=== PATIENT | male | born 1990 | race African-American/Black ===

== ENCOUNTER 2017-07-08 12:59 | Observation (INO) | payer OTHER ==
[2017-07-08 13:09] VITALS: BP 108/64; PULSE 72; RESP 16; TEMP 98.2
[2017-07-08] MEDS ORDERED: RX INFO: IV CONTRAST WAS GIVEN 1 EACH MISC MISCELLANE PRN (13:55)
--- NOTE | 2017-07-08 14:13 | ED ---
General Adult HPI - General Chief complaint: Recheck/Abnormal Lab/Rx Stated complaint: Leg Pain Time Seen by Provider: 07/08/17 13:23 Source: patient Mode of arrival: wheelchair Limitations: no limitations - History of Present Illness Initial comments: 27 yo male with pmh of uncontrolled and unmonitored HIV since 2008 presenting for evaluation of headaches and bilateral LE weakness. States symptoms started about 2 months ago but is uncertain. States onset was gradual but progressively worsening. Symptoms are most notable when trying to stand up from a seated position or when trying to go up stairs. He states that he has to grab onto his pants in order to lift up the extremities. He further states that he intermittently would try to stand up and has near syncopal moments with multiple episodes of syncope and blacking out. Headache is generalized and there are no exacerbating or alleviating factors. He denies any rashes or lesions to his body however there are white spots in his mouth and is looking to follow-up with a dentist for further evaluation. Denies change in vision or ataxia. Intermittent fevers and chills however none currently. Given the recent symptoms he did follow-up with the [facility] to have a CD4 count measured within the last 2 weeks however he has not received his results. Prior to that his most recent follow-up was in 2008. He further states that he hasn't been on antiretroviral therapy since 2008 and at that point had only been on it for a month. He discontinued its use because he was required to go to [place] for monitoring and prescriptions and stated that this was not logistically feasible. - Related Data Home Medications Medication Instructions Recorded Confirmed No Known Home Medications [No 07/08/17 07/08/17 Known Home Medications] Allergies Allergy/AdvReac Type Severity Reaction Status Date / Time No Known Allergies Allergy Verified 07/08/17 15:31 Review of Systems ROS Statement: Those systems with pertinent positive or pertinent negative responses have been documented in the HPI. ROS Other: All systems not noted in ROS Statement are negative. Constitutional: Reports: fever, chills, weakness (lower extremity), night sweats ENT: Reports: other (white oral lesions). Denies: ear pain, throat pain Respiratory: Denies: cough, dyspnea, wheezes Cardiovascular: Denies: chest pain, palpitations, dyspnea on exertion, syncope ( near syncopal episodes when rising) Endocrine: Reports: fatigue. Denies: polydipsia, polyuria Gastrointestinal: Denies: abdominal pain, nausea, vomiting, diarrhea, constipation Genitourinary: Denies: urgency, dysuria, frequency Musculoskeletal: Denies: back pain Skin: Denies: rash, lesions, change in color, change in hair/nails Neurological: Reports: headache, weakness (bilateral lower extremities), abnormal gait (limited due to weakness). Denies: numbness, paresthesias, confusion Psychiatric: Denies: anxiety, depression Hematological/Lymphatic: Denies: easy bleeding, easy bruising Past Medical History Past Medical History: No Reported History Additional Past Medical History / Comment(s): hiv + History of Any Multi-Drug Resistant Organisms: None Reported Past Surgical History: No Surgical Hx Reported Past Psychological History: No Psychological Hx Reported Smoking Status: Never smoker Past Alcohol Use History: Occasional Past Drug Use History: Marijuana General Exam Limitations: no limitations General appearance: alert, in no apparent distress Head exam: Present: atraumatic, normocephalic, normal inspection Eye exam: Present: normal appearance, PERRL, EOMI. Absent: scleral icterus, conjunctival injection, periorbital swelling, periorbital tenderness ENT exam: Present: mucous membranes dry, normal external ear exam, other (white lesions to mucous membranes) Neck exam: Present: normal inspection, full ROM. Absent: tenderness Respiratory exam: Present: normal lung sounds bilaterally. Absent: respiratory distress, wheezes, rales, rhonchi Cardiovascular Exam: Present: regular rate, normal rhythm. Absent: bradycardia , tachycardia, irregular rhythm GI/Abdominal exam: Present: soft. Absent: distended, tenderness, guarding, rebound, rigid Rectal exam: Present: deferred Extremities exam: Present: normal inspection, normal capillary refill. Absent: full ROM, tenderness, pedal edema, joint swelling, calf tenderness Back exam: Present: normal inspection, full ROM Neurological exam: Present: alert, oriented X3, CN II-XII intact, abnormal gait , motor sensory deficit (weakness to bilateral lower extremity flexion/ extionsion of knees and hips), reflexes normal. Absent: normal gait Psychiatric exam: Present: normal affect, normal mood Skin exam: Present: warm, dry Course Vital Signs 07/08/17 13:06 Temperature 98.2 F Pulse Rate 72 Respiratory 16 Rate Blood Pressure 108/64 O2 Sat by Pulse 99 Oximetry Medical Decision Making - Medical Decision Making 27-year-old male with past medical history of uncontrolled an unmonitored HIV since 2008 presenting for evaluation of headache for the last couple months, lower extremity weakness during this time as well, and multiple near syncopal moments. On physical examination cranial nerves II through XII are intact however there are focal neural deficits and lower extremity's with weakness of the hips knees and ankles in both flexion and extension. ENT exam reveals thrush to the posterior oropharynx as well as the buccal mucosa. Remainder of exam is benign. Given his lack of follow-up as an outpatient with his HIV and lack of treatment he has a high risk of opportunistic infections. We'll obtain CT head with and without contrast, labs, and plan for admission. CT head with and without contrast showed no acute intracranial process or abnormal endocrine no enhancement however there was cerebral atrophy that is advanced for the patient's age. Labs revealed no significant abnormality. Patient was reevaluated and had no change in his physical exam. Discussed the patient with Dr. River who accepted the admission without further request. Admission order placed and bed request submitted. - Lab Data Result diagrams: 07/08/17 14:00 07/08/17 14:00 Lab Results 07/08/17 07/08/17 07/08/17 Range/Units 14:00 14:00 15:00 WBC 4.5 (3.8-10.6) k/uL RBC 4.33 (4.30-5.90) m/uL Hgb 13.1 (13.0-17.5) gm/dL Hct 39.4 (39.0-53.0) % MCV 91.0 (80.0-100.0) fL MCH 30.3 (25.0-35.0) pg MCHC 33.3 (31.0-37.0) g/dL RDW 12.7 (11.5-15.5) % Plt Count 139 L (150-450) k/uL Neutrophils % 66 % Lymphocytes % 24 % Monocytes % 6 % Eosinophils % 3 % Basophils % 1 % Neutrophils # 3.0 (1.3-7.7) k/uL Lymphocytes # 1.1 (1.0-4.8) k/uL Monocytes # 0.3 (0-1.0) k/uL Eosinophils # 0.1 (0-0.7) k/uL Basophils # 0.0 (0-0.2) k/uL Sodium 146 H (137-145) mmol/L Potassium 4.3 (3.5-5.1) mmol/L Chloride 104 (98-107) mmol/L Carbon Dioxide 30 (22-30) mmol/L Anion Gap 12 mmol/L BUN 15 (9-20) mg/dL Creatinine 0.72 (0.66-1.25) mg/dL Est GFR (CKD-EPI)AfAm >90 (>60 ml/min/1.73 sqM) Est GFR (CKD-EPI)NonAf >90 (>60 ml/min/1.73 sqM) Glucose 92 (74-99) mg/dL Calcium 9.4 (8.4-10.2) mg/dL Total Bilirubin 0.6 (0.2-1.3) mg/dL AST 51 (17-59) U/L ALT 41 (21-72) U/L Alkaline Phosphatase 110 (38-126) U/L Total Protein 8.0 (6.3-8.2) g/dL Albumin 3.8 (3.5-5.0) g/dL Urine Color Yellow Urine Appearance Clear (Clear) Urine pH 7.5 (5.0-8.0) Urine Protein Trace H (Negative) Urine Glucose (UA) Negative (Negative) Urine Ketones Negative (Negative) Urine Blood Negative (Negative) Urine Nitrite Negative (Negative) Urine Bilirubin Negative (Negative) Urine Urobilinogen <2.0 (<2.0) mg/dL Ur Leukocyte Esterase Negative (Negative) Disposition Clinical Impression: Lower extremity weakness, Thrush Disposition: ADMITTED IP TO THIS HOSP Referrals: None,Stated [Primary Care Provider] - 1-2 days Decision to Admit Reason: Admit from EC Decision Date: 07/08/17 Decision Time: 15:59
[2017-07-08 14:31] LABS: Basophils % (A) 1 %; Eosinophils # (A) 0.1 k/uL (0-0.7); Eosinophils % (A) 3 %; HCT 39.4 % (39.0-53.0); HGB 13.1 gm/dL (13.0-17.5); Lymphocytes # (A) 1.1 k/uL (1.0-4.8); Lymphocytes % (A) 24 %; MCH 30.3 pg (25.0-35.0); MCHC 33.3 g/dL (31.0-37.0); Monocytes # (A) 0.3 k/uL (0-1.0); Monocytes % (A) 6 %; Neutrophils % (A) 66 %; Platelet Count 139 k/uL (150-450); RBC 4.33 m/uL (4.30-5.90); RDW 12.7 % (11.5-15.5); WBC 4.5 k/uL (3.8-10.6)
[2017-07-08 14:40] LABS: ALT 41 U/L (21-72); AST 51 U/L (17-59); Albumin 3.8 g/dL (3.5-5.0); Alkaline Phosphatase 110 U/L (38-126); Anion Gap 12 mmol/L; Blood Urea Nitrogen 15 mg/dL (9-20); Calcium 9.4 mg/dL (8.4-10.2); Carbon Dioxide 30 mmol/L (22-30); Chloride 104 mmol/L (98-107); Glucose 92 mg/dL (74-99); Potassium 4.3 mmol/L (3.5-5.1); Sodium 146 mmol/L (137-145); Total Bilirubin 0.6 mg/dL (0.2-1.3)
--- NOTE | 2017-07-08 15:29 | CT ---
EXAMINATION TYPE: CT brain wo/w con DATE OF EXAM: 07/08/2017 COMPARISON: NONE HISTORY: Lower extremity weakness CT DLP: 2152 mGycm Automated Exposure Control for Dose Reduction was Utilized. TECHNIQUE: CT scan of the head is performed with IV contrast.,CT scan of the head is performed withou t and with without and with IV Contrast, patient injected with 100 ml mL of Isovue 300. FINDINGS: There is symmetric enlargement of the ventricular system and peripheral sulci compatible wi th cerebral atrophy, advanced for the patient's age. Noncontrast images show no acute intracranial he morrhage or midline shift. No suspicious extra axial fluid collection is seen. Godoy-white matter inte rface is preserved. Postcontrast images show no suspicious enhancing intraparenchymal mass. The globe s are intact. Mild mucosal thickening is seen within the ethmoid, maxillary, and sphenoid sinuses. Fr ontal sinuses and mastoid air cells are well aerated. Calvarium is intact. IMPRESSION: No acute intracranial process or abnormal intracranial enhancement. Cerebral atrophy is a dvanced for the patient's age. MRI could be considered if there is further clinical concern.
[2017-07-08] MEDS ORDERED: SODIUM CHLORIDE 0.9% 1,000 ML IV ONE (15:30)
[2017-07-08 15:52] LABS: Appearance,Urine Clear (Clear); Bilirubin,Urine Negative (Negative); Blood,Urine Negative (Negative); Color,Urine Yellow; Glucose,Urine (UA) Negative (Negative); Ketones,Urine Negative (Negative); Leukocyte Esterase,Urine Negative (Negative); Nitrite,Urine Negative (Negative); PH, Urine 7.5 (5.0-8.0); Protein,Urine Trace (Negative); Urobilinogen,Urine <2.0 mg/dL (<2.0)
[2017-07-08] MEDS ORDERED: NALOXONE 0.4 MG/ML 1 ML VIAL IV PRN (15:55)
[2017-07-08] MEDS ORDERED: IBUPROFEN 400 MG TAB PO PRN (15:55)
[2017-07-08] MEDS ORDERED: ONDANSETRON 4 MG/2 ML VIAL IVP PRN (15:55)
[2017-07-08] MEDS ORDERED: ACETAMINOPHEN TAB 325 MG TAB PO PRN (15:55)
[2017-07-08 15:59] LABS: Specific Gravity,Urine >1.050 (1.001-1.035)
[2017-07-08] MEDS ORDERED: NYSTATIN 100,000 UNIT/ML SUSP 500,000 UNIT/5 ML CUP PO SCH (18:00)
--- NOTE | 2017-07-08 18:18 | P.HPIM ---
History of Present Illness 27-year-old male with previous history of HIV which was diagnosed in 2008 was briefly started on anti-retroviral therapy after which he starts he came in with complaints of bilateral lower limb weakness patient has a broad-based gait upon exam and which has been progressively getting worse for 2 months. Patient denied any other focal weakness. Patient was comparing of on and have headache denied any visual problems there is some oral thrush and exam.. Patient was seen in an outpatient clinic where this CD4 count was done is not aware of the CD4 count results. We are trying to obtain medical records from clinic for CD4 count. Patient is supposed to follow-up with pending sale to [facility]. I was asked to admit the patient for possible LP and an MRI and monitoring overnight and possible infectious disease consultation. Patient denied any cough runny nose dysuria. No fever no leukocytosis CD4 count was ordered I admitted the patient for above-mentioned testing looking for toxoplasmosis and other HIV related PRICE CHECKER manifestations. Shortly after coming to the floor patient wanted to leave doesn't want to stay in the hospital for any further evaluation. I recommended to him to follow up closely with the his physicians. we're trying to get him appointments with PCP , infectious disease and neurologist. Review of Systems REVIEW OF SYSTEMS: CONSTITUTIONAL: No fever, no malaise, no fatigue. HEENT: No recent visual problems or hearing problems. Denied any sore throat. CARDIOVASCULAR: No chest pain, orthopnea, PND, no palpitations, no syncope. PULMONARY: No shortness of breath, no cough, no hemoptysis. GASTROINTESTINAL: No diarrhea, no nausea, no vomiting, no abdominal pain. Normoactive bowel sounds. NEUROLOGICAL: as mentioned above HEMATOLOGICAL: Denies any bleeding or petechiae. GENITOURINARY: Denies any burning micturition, frequency, or urgency. MUSCULOSKELETAL/RHEUMATOLOGICAL: Denies any joint pain, swelling, or any muscle pain. ENDOCRINE: Denies any polyuria or polydipsia. The rest of the 14-point review of systems is negative. Past Medical History Past Medical History: No Reported History Additional Past Medical History / Comment(s): hiv + History of Any Multi-Drug Resistant Organisms: None Reported Past Surgical History: No Surgical Hx Reported Past Psychological History: No Psychological Hx Reported Smoking Status: Never smoker Past Alcohol Use History: Occasional Past Drug Use History: Marijuana Medications and Allergies Home Medications Medication Instructions Recorded Confirmed Type No Known Home Medications [No 07/08/17 07/08/17 History Known Home Medications] Allergies Allergy/AdvReac Type Severity Reaction Status Date / Time No Known Allergies Allergy Verified 07/08/17 15:31 Physical Exam Vitals: Vital Signs Temp Pulse Resp BP Pulse Ox 07/08/17 13:06 98.2 F 72 16 108/64 99 Intake and Output 07/08/17 07/08/17 07/08/17 06:59 14:59 22:59 Other: Weight 86.183 kg PHYSICAL EXAMINATION: GENERAL: The patient is alert and oriented x3, not in any acute distress. Well developed, well nourished. HEENT: Pupils are round and equally reacting to light. EOMI. No scleral icterus. No conjunctival pallor. Normocephalic, atraumatic. No pharyngeal erythema. No thyromegaly. CARDIOVASCULAR: S1 and S2 present. No murmurs, rubs, or gallops. PULMONARY: Chest is clear to auscultation, no wheezing or crackles. ABDOMEN: Soft, nontender, nondistended, normoactive bowel sounds. No palpable organomegaly. MUSCULOSKELETAL: No joint swelling or deformity. EXTREMITIES: No cyanosis, clubbing, or pedal edema. NEUROLOGICAL: Gross neurological examination did not reveal any focal deficits. 4+/5strength in bilateral lower extremity is patient had broad-based gait no ataxia SKIN: No rashes. Results CBC & Chem 7: 07/08/17 14:00 07/08/17 14:00 Labs: Abnormal Lab Results - Last 24 Hours (Table) 07/08/17 07/08/17 07/08/17 Range/Units 14:00 14:00 15:00 Plt Count 139 L (150-450) k/uL Sodium 146 H (137-145) mmol/L Ur Specific [place] >1.050 H (1.001-1.035) Urine Protein Trace H (Negative) Assessment and Plan Plan: -bilateral lower limb weakness without any back pain: Has patient has history of HIV the differentials being encephalitis from toxoplasmosis although I do not have any CD4 count available, other rare possibilities include viral CMV and HSV encephalitis, patient doesn't have significant confusion mycobacterial infections is another consideration. Patient wanted to leave A because of which I'm unable to do any further workup at this time. -HIV patient is presently an not on any antiretroviral therapy CD4 count is unavailable at this time.
--- NOTE | 2017-07-08 18:19 | P.DS ---
Providers Date of admission: 07/08/17 15:55 Attending physician: George River Primary care physician: Stated None Hospital Course: please refer to my HPI and patient left AMA Plan - Discharge Summary New Discharge Prescriptions: No Action No Known Home Medications [No Known Home Medications] Discharge Medication List No Known Home Medications [No Known Home Medications] 07/08/17 [History] Follow up Appointment(s)/Referral(s): Nawaf Miranda MD [STAFF PHYSICIAN] - 1 Week Almita Valle MD [STAFF PHYSICIAN] - 1 Week Christy Murcia MD [STAFF PHYSICIAN] - 1 Week None,Stated [Primary Care Provider] - 1-2 days Discharge Disposition: Left Against Medical Advice
[2017-07-09 10:09] LABS: T4/T8 Ratio (CD4:CD8) 0.2 (1.0-3.7)
== END 2017-07-08 18:00 | disposition left against medical advice (07) ==
LOC: EC 12:59 → 4MS4W 15:55
PROVIDERS: ADMIT Internal Medicine; ATTEND Internal Medicine
DX: R53.1 Weakness (principal); B37.0 Candidal stomatitis; R51 Headache; R55 Syncope and collapse; Z21 Asymptomatic human immunodeficiency virus [HIV] infection status
CPT/HCPCS: 99284 ×2; 96360 ×2; 36415; 80053; 86360; 82550; 85025; 81003; 70470; G0378; Q9967

== ENCOUNTER 2017-08-01 19:07 | Inpatient (IN) | payer OTHER ==
[2017-08-01] MEDS ORDERED: ACETAMINOPHEN TAB 500 MG TAB PO STA (20:16)
--- NOTE | 2017-08-01 20:36 | ED ---
General Adult HPI - General Chief complaint: Extremity Problem,Nontraumatic Stated complaint: LEG STIFFNESS, UNABLE TO STAND Time Seen by Provider: 08/01/17 20:01 Source: patient, RN notes reviewed, old records reviewed Mode of arrival: wheelchair Limitations: no limitations - History of Present Illness Initial comments: This patient is a 27-year-old male with history of HIV presents with bilateral lower extremity pain and muscle aches. He reports that he's been having the symptoms for a month. He had these symptoms approximately 3 weeks ago and was evaluated in the emergency department and subsequently admitted at that time. They had pending CD4 PAC account. Patient left AMA at that time. They were in and told to do any further testing. Patient reports that the symptoms have persisted since his previous admission. He states he has not followed up with any specialist. He has been doing this with HIV in 2008. He has not been on any antiretroviral therapy since that time. Patient reports he also saw some white spots in his throat, he complains of a minor cough. He denies any fever or chills. - Related Data Home Medications Medication Instructions Recorded Confirmed No Known Home Medications [No 07/08/17 08/01/17 Known Home Medications] Allergies Allergy/AdvReac Type Severity Reaction Status Date / Time No Known Allergies Allergy Verified 08/01/17 20:06 Review of Systems ROS Statement: Those systems with pertinent positive or pertinent negative responses have been documented in the HPI. ROS Other: All systems not noted in ROS Statement are negative. Past Medical History Past Medical History: No Reported History Additional Past Medical History / Comment(s): hiv + History of Any Multi-Drug Resistant Organisms: None Reported Past Surgical History: No Surgical Hx Reported Past Psychological History: No Psychological Hx Reported Smoking Status: Never smoker Past Alcohol Use History: Occasional Past Drug Use History: Marijuana General Exam - General Exam Comments Initial Comments: 27-year-old male. Patient is having a hard time understanding why we would need to do further testing. Limitations: no limitations General appearance: alert, in no apparent distress Head exam: Present: atraumatic, normocephalic, normal inspection Eye exam: Present: normal appearance, PERRL, EOMI. Absent: scleral icterus, conjunctival injection, periorbital swelling ENT exam: Present: mucous membranes moist. Absent: normal exam, normal oropharynx (Evidence of thrush.) Neck exam: Present: normal inspection. Absent: tenderness, meningismus, lymphadenopathy Respiratory exam: Present: normal lung sounds bilaterally. Absent: respiratory distress, wheezes, rales, rhonchi, stridor Cardiovascular Exam: Present: regular rate, normal rhythm, normal heart sounds. Absent: systolic murmur, diastolic murmur, rubs, gallop, clicks GI/Abdominal exam: Present: soft, normal bowel sounds. Absent: distended, tenderness, guarding, rebound, rigid Extremities exam: Present: normal inspection, full ROM, normal capillary refill , other (Patient has bilateral lower extremity weakness. Patient has to use his arms to lift his legs up onto the bed.). Absent: tenderness, pedal edema, joint swelling, calf tenderness Back exam: Present: normal inspection Neurological exam: Present: alert, oriented X3, CN II-XII intact Psychiatric exam: Present: normal affect, normal mood Skin exam: Present: warm, dry, intact, normal color. Absent: rash Course Vital Signs 08/01/17 08/01/17 08/01/17 19:14 21:54 21:58 Temperature 97.8 F 97.0 F L Pulse Rate 72 62 Respiratory 16 16 18 Rate Blood Pressure 156/105 124/72 O2 Sat by Pulse 98 98 Oximetry Medical Decision Making - Medical Decision Making 27-year-old male with history of HIV and patient resistant to antiviral therapy for the past 10 years presents today with 1 month of bilateral lower extremity weakness. He was admitted possibly 3 weeks ago for similar complaints. He did leave AMA at that time. Patient reports no fever or chills. He also has evidence of thrush. Patient's lab work from last admission were reviewed. His CD4 percent is 14. Absolute CD4 count was 149. CD4 to CVA ratio is 0.2. CVA suppress her cells were 65. Total CT cells are 680. He has uses her arms to move his legs for him. He's had a hard time walking. Patient white blood cell count is 7.5. Chemistry panels with a normal-appearing normal lactic acid. Obtained blood cultures. With his history of HIV a did complete a chest x- ray. Chest x-ray did show developing right upper lobe pneumonia. We'll treat the patient for HAP at this time with cefepime, Levaquin and vancomycin. I will also treat the patient's thrush with oral nystatin and by mouth nystatin swish at this time. When he was last admitted they were concerned for opportunistic infections such as toxoplasmosis. Also at this time concerned with the chest x-ray showing pneumonia could be possibility of PCP. However his chest x-ray does not show the classic appearance of PCP pneumonia. Patient requests to be admitted to the physician the previously saw him Dr. River. I will have consult to infectious disease. - Lab Data Result diagrams: 08/01/17 20:05 08/01/17 20:05 Lab Results 08/01/17 08/01/17 08/01/17 Range/Units 20:05 20:05 20:05 WBC 7.5 (3.8-10.6) k/uL RBC 4.38 (4.30-5.90) m/uL Hgb 13.1 (13.0-17.5) gm/dL Hct 39.9 (39.0-53.0) % MCV 91.2 (80.0-100.0) fL MCH 29.9 (25.0-35.0) pg MCHC 32.8 (31.0-37.0) g/dL RDW 13.4 (11.5-15.5) % Plt Count 106 L (150-450) k/uL Neutrophils % 81 % Lymphocytes % 11 % Monocytes % 4 % Eosinophils % 2 % Basophils % 0 % Neutrophils # 6.1 (1.3-7.7) k/uL Lymphocytes # 0.9 L (1.0-4.8) k/uL Monocytes # 0.3 (0-1.0) k/uL Eosinophils # 0.2 (0-0.7) k/uL Basophils # 0.0 (0-0.2) k/uL PT 9.8 (9.0-12.0) sec INR 1.0 (<1.2) APTT 25.2 (22.0-30.0) sec Sodium 146 H (137-145) mmol/L Potassium 4.0 (3.5-5.1) mmol/L Chloride 104 (98-107) mmol/L Carbon Dioxide 31 H (22-30) mmol/L Anion Gap 11 mmol/L BUN 16 (9-20) mg/dL Creatinine 0.84 (0.66-1.25) mg/dL Est GFR (CKD-EPI)AfAm >90 (>60 ml/min/1.73 sqM) Est GFR (CKD-EPI)NonAf >90 (>60 ml/min/1.73 sqM) Glucose 83 (74-99) mg/dL Plasma Lactic Acid Ignacio (0.7-2.0) mmol/L Calcium 9.4 (8.4-10.2) mg/dL Total Bilirubin 0.5 (0.2-1.3) mg/dL AST 58 (17-59) U/L ALT 54 (21-72) U/L Alkaline Phosphatase 141 H (38-126) U/L Creatine Kinase (55-170) U/L Total Protein 7.5 (6.3-8.2) g/dL Albumin 3.6 (3.5-5.0) g/dL 08/01/17 08/01/17 Range/Units 20:05 20:43 WBC (3.8-10.6) k/uL RBC (4.30-5.90) m/uL Hgb (13.0-17.5) gm/dL Hct (39.0-53.0) % MCV (80.0-100.0) fL MCH (25.0-35.0) pg MCHC (31.0-37.0) g/dL RDW (11.5-15.5) % Plt Count (150-450) k/uL Neutrophils % % Lymphocytes % % Monocytes % % Eosinophils % % Basophils % % Neutrophils # (1.3-7.7) k/uL Lymphocytes # (1.0-4.8) k/uL Monocytes # (0-1.0) k/uL Eosinophils # (0-0.7) k/uL Basophils # (0-0.2) k/uL PT (9.0-12.0) sec INR (<1.2) APTT (22.0-30.0) sec Sodium (137-145) mmol/L Potassium (3.5-5.1) mmol/L Chloride (98-107) mmol/L Carbon Dioxide (22-30) mmol/L Anion Gap mmol/L BUN (9-20) mg/dL Creatinine (0.66-1.25) mg/dL Est GFR (CKD-EPI)AfAm (>60 ml/min/1.73 sqM) Est GFR (CKD-EPI)NonAf (>60 ml/min/1.73 sqM) Glucose (74-99) mg/dL Plasma Lactic Acid Ignacio 0.9 (0.7-2.0) mmol/L Calcium (8.4-10.2) mg/dL Total Bilirubin (0.2-1.3) mg/dL AST (17-59) U/L ALT (21-72) U/L Alkaline Phosphatase (38-126) U/L Creatine Kinase 50 L (55-170) U/L Total Protein (6.3-8.2) g/dL Albumin (3.5-5.0) g/dL - Radiology Data Radiology results: report reviewed Chest x-ray shows possible new left upper lobe infiltrate compared on exam. Normal heart. Lumbar spine x-ray was normal. Disposition Clinical Impression: Lower extremity weakness, Thrush, HIV (human immunodeficiency virus infection) , Pneumonia Disposition: ADMITTED IP TO THIS [facility] Condition: Stable Is patient prescribed a controlled substance at d/c from ED?: No If prescribed controlled substance>3 days was MAPS reviewed?: No When asked, does pt state using other controlled substances?: No Referrals: None,Stated [Primary Care Provider] - 1-2 days Time of Disposition: 22:52
[2017-08-01 20:41] LABS: Basophils % (A) 0 %; Eosinophils # (A) 0.2 k/uL (0-0.7); Eosinophils % (A) 2 %; HCT 39.9 % (39.0-53.0); HGB 13.1 gm/dL (13.0-17.5); Lymphocytes # (A) 0.9 k/uL (1.0-4.8); Lymphocytes % (A) 11 %; MCH 29.9 pg (25.0-35.0); MCHC 32.8 g/dL (31.0-37.0); MCV 91.2 fL (80.0-100.0); Mean Platelet Volume 9.7; Monocytes # (A) 0.3 k/uL (0-1.0); Monocytes % (A) 4 %; Neutrophils # (A) 6.1 k/uL (1.3-7.7); Neutrophils % (A) 81 %; Platelet Count 106 k/uL (150-450); RBC 4.38 m/uL (4.30-5.90); RDW 13.4 % (11.5-15.5); WBC 7.5 k/uL (3.8-10.6)
[2017-08-01 20:52] LABS: Partial Thromboplastin Time 25.2 sec (22.0-30.0); Prothrombin Time 9.8 sec (9.0-12.0)
[2017-08-01 20:56] LABS: ALT 54 U/L (21-72); AST 58 U/L (17-59); Albumin 3.6 g/dL (3.5-5.0); Alkaline Phosphatase 141 U/L (38-126); Anion Gap 11 mmol/L; Blood Urea Nitrogen 16 mg/dL (9-20); Calcium 9.4 mg/dL (8.4-10.2); Carbon Dioxide 31 mmol/L (22-30); Chloride 104 mmol/L (98-107); Glucose 83 mg/dL (74-99); Sodium 146 mmol/L (137-145); Total Bilirubin 0.5 mg/dL (0.2-1.3); Total Protein 7.5 g/dL (6.3-8.2)
[2017-08-01] MEDS: SODIUM CHLORIDE 0.9% 1,000 ML IV SCH (21:10)
[2017-08-01] MEDS: SODIUM CHLORIDE 0.9% 500 ML IV SCH ×2 (21:11→22:59)
--- NOTE | 2017-08-01 21:51 | XR ---
EXAMINATION TYPE: XR chest 2V DATE OF EXAM: 08/01/2017 COMPARISON: 05/16/2011 HISTORY: Weakness TECHNIQUE: Frontal and lateral views of the chest are obtained. FINDINGS: Heart and mediastinum are normal. There is a possible infiltrate in the right upper lobe t hat is obscured by the clavicle and the first rib.. Costophrenic angles are clear. There are no hilar masses. There is no pleural effusion. Bony thorax is intact. IMPRESSION: Possible new right upper lobe infiltrate compared to old exam. Normal heart.
--- NOTE | 2017-08-01 21:53 | XR ---
EXAMINATION TYPE: XR lumbar spine 2 or 3V DATE OF EXAM: 08/01/2017 COMPARISON: NONE HISTORY: Back pain TECHNIQUE: 3 views FINDINGS: Lumbar vertebra have normal spacing and alignment. Posterior elements are intact. Sacroilia c joints appear normal. IMPRESSION: Normal lumbar spine exam.
[2017-08-01] MEDS ORDERED: FLUCONAZOLE 100 MG TAB PO ONE (22:34)
[2017-08-01] MEDS ORDERED: LEVOFLOXACIN 750MG-D5W PMX 750 MG in DEXTROSE/WATER 1 150ML.BAG IVPB STA (22:39)
[2017-08-01] MEDS ORDERED: VANCOMYCIN IV PER PHARMACY 1 EACH MISC MISCELLANE PRN (22:40)
[2017-08-01] MEDS ORDERED: CEFEPIME 2 GM in SODIUM CHLORIDE 0.9% 50 ML IVPB STA (22:40)
[2017-08-01] MEDS ORDERED: KETOROLAC 30 MG/ML 1 ML VIAL IVP PRN (22:57)
[2017-08-01] MEDS ORDERED: ONDANSETRON 4 MG/2 ML VIAL IVP PRN (22:57)
[2017-08-01] MEDS: NYSTATIN 100,000 UNIT/ML SUSP 500,000 UNIT/5 ML CUP PO SCH ×2 (22:57→22:58)
[2017-08-01] MEDS ORDERED: NALOXONE 0.4 MG/ML 1 ML VIAL IV PRN (22:57)
[2017-08-02 00:36] LABS: Appearance,Urine Clear (Clear); Bilirubin,Urine Negative (Negative); Blood,Urine Negative (Negative); Color,Urine Yellow; Glucose,Urine (UA) Negative (Negative); Ketones,Urine Negative (Negative); Leukocyte Esterase,Urine Negative (Negative); Nitrite,Urine Negative (Negative); PH, Urine 5.5 (5.0-8.0); Protein,Urine Negative (Negative); Specific Gravity,Urine 1.012 (1.001-1.035); Urobilinogen,Urine <2.0 mg/dL (<2.0)
[2017-08-02] MEDS ORDERED: VANCOMYCIN 1,500 MG in SODIUM CHLORIDE 0.9% 250 ML IVPB SCH ×3 (01:00→12:00)
[2017-08-02 07:14] LABS: Basophils % (A) 0 %; Eosinophils # (A) 0.1 k/uL (0-0.7); Eosinophils % (A) 2 %; HCT 37.5 % (39.0-53.0); HGB 12.4 gm/dL (13.0-17.5); Lymphocytes # (A) 0.8 k/uL (1.0-4.8); Lymphocytes % (A) 15 %; MCH 30.9 pg (25.0-35.0); MCHC 33.1 g/dL (31.0-37.0); MCV 93.3 fL (80.0-100.0); Mean Platelet Volume 9.7; Monocytes # (A) 0.3 k/uL (0-1.0); Monocytes % (A) 5 %; Neutrophils # (A) 4.1 k/uL (1.3-7.7); Neutrophils % (A) 76 %; Platelet Count 101 k/uL (150-450); RBC 4.02 m/uL (4.30-5.90); RDW 13.5 % (11.5-15.5); WBC 5.4 k/uL (3.8-10.6)
[2017-08-02 07:35] LABS: Anion Gap 10 mmol/L; Blood Urea Nitrogen 15 mg/dL (9-20); Calcium 8.6 mg/dL (8.4-10.2); Carbon Dioxide 28 mmol/L (22-30); Chloride 109 mmol/L (98-107); Glucose 68 mg/dL (74-99); Magnesium 1.9 mg/dL (1.6-2.3); Sodium 147 mmol/L (137-145)
[2017-08-02] MEDS ORDERED: PANTOPRAZOLE 40 MG/10 ML VIAL IV SCH (09:00)
--- NOTE | 2017-08-02 09:23 | P.CONS ---
History of Present Illness - Reason for Consult Consult date: 08/02/17 HIV, pneumonia - History of Present Illness This is a 27-year-old Afro-[place] male who had a recent hospitalization on 05/2017 at which time he presented with bilateral lower extremity weakness and broad-based gait. Been progressively getting worse for 2 months. He underwent a CT of the brain showed no acute intracranial process or abnormal intracranial enhancement. Cerebral atrophy is advanced for patient's age. 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 T suppressor cells 680, percentage of seat T4 helper 14, absolute CD4 helper 149, CD4/CD8 ratio 0.2 , percentage of CD8 suppressor 65. Patient up signing himself out AGAINST MEDICAL ADVICE. He was to follow-up with Dr. Miranda but did not do so. Patient has history of HIV that was diagnosed in 2008 but he has never sought treatment and has not been on any retro-antiviral medication for this. Patient presented back to [facility] emergency center on August 01 with complaints of bilateral lower extremity pain and muscle aches. Patient complains of feeling pain all over his body. He has an exaggerated response to light palpation. He has difficulty rolling in his bed due to pain. Patient denies having any cough, shortness of breath, fever, chills. He had a chest x- ray that showed possible new right upper lobe infiltrate. Lumbar spine was normal. Patient was given cefepime and Diflucan and Levaquin in the emergency center and continued on vancomycin. She was admitted to the selective care unit and there is a consult in place with cardiology for second degree AV block and with Dr. Bentley for lower extremity weakness. Review of Systems Constitutional: Reports chronic pain, Reports weakness, Denies anorexia, Denies chills, Denies fatigue, Denies fever, Denies night sweats, Denies poor appetite Ears, nose, mouth and throat: Denies dental pain, Denies dysphagia, Denies mouth pain, Denies sore throat, Denies vertigo Cardiovascular: Denies chest pain, Denies decreased exercise tolerance, Denies dyspnea on exertion, Denies edema, Denies leg edema, Denies lightheadedness, Denies rapid heart beat, Denies syncope Respiratory: Denies congestion, Denies cough, Denies cough with sputum, Denies dyspnea, Denies excessive sputum, Denies hemoptysis, Denies home oxygen, Denies wheezing Gastrointestinal: Denies abdominal pain, Denies diarrhea, Denies nausea, Denies vomiting Genitourinary: Denies dysuria Musculoskeletal: Reports myalgias Past Medical History Past Medical History: No Reported History Additional Past Medical History / Comment(s): hiv + History of Any Multi-Drug Resistant Organisms: None Reported Past Surgical History: No Surgical Hx Reported Past Psychological History: No Psychological Hx Reported Smoking Status: Never smoker Past Alcohol Use History: Occasional Additional Past Alcohol Use History / Comment(s): Patient denies any history of smoking. He does use marijuana and smokes alcohol occasionally. He lives at home with his mother. There are dogs in the home. 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 He denies any recent travel. Past Drug Use History: Marijuana Medications and Allergies Home Medications Medication Instructions Recorded Confirmed Type No Known Home Medications [No 07/08/17 08/01/17 History Known Home Medications] Allergies Allergy/AdvReac Type Severity Reaction Status Date / Time No Known Allergies Allergy Verified 08/01/17 20:06 Physical Exam Vitals: Vital Signs Temp Pulse Pulse Resp BP BP Pulse Ox 08/02/17 08:40 97.0 F L 62 18 139/87 100 08/02/17 03:00 97.8 F 63 17 127/86 99 08/02/17 00:00 96.9 F L 59 L 18 124/85 98 08/01/17 23:00 98.3 F 56 L 16 126/83 95 08/01/17 21:58 18 08/01/17 21:54 97.0 F L 62 16 124/72 98 08/01/17 19:14 97.8 F 72 16 156/105 98 Intake and Output 08/01/17 08/02/17 08/02/17 22:59 06:59 14:59 Intake Total 236 Output Total 0 Balance 0 236 Intake: Oral 236 Output: Urine 0 Stool 0 Other: Voiding Method Urinal # Voids 0 # Bowel Movements 0 Weight 81.647 kg 96 kg Gen: This is a 27-year-old -[place] male. He is in bed and appears to be comfortable. When patient is asked to move he complains of pain all over his body. He has difficulty moving in his bed due to pain all over. HEENT: Head is atraumatic, normocephalic. Pupils equal, round. Sclerae is anicteric. Conjunctiva pink. Mucous members of the mouth are moist. No thrush noted. NECK: Supple. No JVD. No lymphadenopathy. No thyromegaly. LUNGS: Clear to auscultation. No wheezes or rhonchi. No intercostal retractions. HEART: Regular rate and rhythm. No murmur. ABDOMEN: Soft. Bowel sounds are present. No masses. No tenderness. EXTREMITIES: No pedal edema. No calf tenderness. NEUROLOGICAL: Patient is awake, alert and oriented x3. Cranial nerves 2 through 12 are grossly intact. Patient has childlike behavior with no previous diagnosis of intellectual disability. Results Results: Laboratory Results WBC 5.4 k/uL (3.8-10.6) 08/02/17 06:30 RBC 4.02 m/uL (4.30-5.90) L 08/02/17 06:30 Hgb 12.4 gm/dL (13.0-17.5) L 08/02/17 06:30 Hct 37.5 % (39.0-53.0) L 08/02/17 06:30 MCV 93.3 fL (80.0-100.0) 08/02/17 06:30 MCH 30.9 pg (25.0-35.0) 08/02/17 06:30 MCHC 33.1 g/dL (31.0-37.0) 08/02/17 06:30 RDW 13.5 % (11.5-15.5) 08/02/17 06:30 Plt Count 101 k/uL (150-450) L 08/02/17 06:30 Neutrophils % 76 % 08/02/17 06:30 Lymphocytes % 15 % 08/02/17 06:30 Monocytes % 5 % 08/02/17 06:30 Eosinophils % 2 % 08/02/17 06:30 Basophils % 0 % 08/02/17 06:30 Neutrophils # 4.1 k/uL (1.3-7.7) 08/02/17 06:30 Lymphocytes # 0.8 k/uL (1.0-4.8) L 08/02/17 06:30 Monocytes # 0.3 k/uL (0-1.0) 08/02/17 06:30 Eosinophils # 0.1 k/uL (0-0.7) 08/02/17 06:30 Basophils # 0.0 k/uL (0-0.2) 08/02/17 06:30 PT 9.8 sec (9.0-12.0) 08/01/17 20:05 INR 1.0 (<1.2) 08/01/17 20:05 APTT 25.2 sec (22.0-30.0) 08/01/17 20:05 Sodium 147 mmol/L (137-145) H 08/02/17 06:30 Potassium 4.0 mmol/L (3.5-5.1) 08/02/17 06:30 Chloride 109 mmol/L (98-107) H 08/02/17 06:30 Carbon Dioxide 28 mmol/L (22-30) 08/02/17 06:30 Anion Gap 10 mmol/L 08/02/17 06:30 BUN 15 mg/dL (9-20) 08/02/17 06:30 Creatinine 0.82 mg/dL (0.66-1.25) 08/02/17 06:30 Est GFR (CKD-EPI)AfAm >90 (>60 ml/min/1.73 sqM) 08/02/17 06:30 Est GFR (CKD-EPI)NonAf >90 (>60 ml/min/1.73 sqM) 08/02/17 06:30 Glucose 68 mg/dL (74-99) L 08/02/17 06:30 Plasma Lactic Acid Ignacio 0.9 mmol/L (0.7-2.0) 08/01/17 20:43 Calcium 8.6 mg/dL (8.4-10.2) 08/02/17 06:30 Magnesium 1.9 mg/dL (1.6-2.3) 08/02/17 06:30 Total Bilirubin 0.5 mg/dL (0.2-1.3) 08/01/17 20:05 AST 58 U/L (17-59) 08/01/17 20:05 ALT 54 U/L (21-72) 08/01/17 20:05 Alkaline Phosphatase 141 U/L (38-126) H 08/01/17 20:05 Creatine Kinase 50 U/L (55-170) L 08/01/17 20:05 Total Protein 7.5 g/dL (6.3-8.2) 08/01/17 20:05 Albumin 3.6 g/dL (3.5-5.0) 08/01/17 20:05 Urine Color Yellow 08/02/17 00:30 Urine Appearance Clear (Clear) 08/02/17 00:30 Urine pH 5.5 (5.0-8.0) 08/02/17 00:30 Ur Specific [place] 1.012 (1.001-1.035) 08/02/17 00:30 Urine Protein Negative (Negative) 08/02/17 00:30 Urine Glucose (UA) Negative (Negative) 08/02/17 00:30 Urine Ketones Negative (Negative) 08/02/17 00:30 Urine Blood Negative (Negative) 08/02/17 00:30 Urine Nitrite Negative (Negative) 08/02/17 00:30 Urine Bilirubin Negative (Negative) 08/02/17 00:30 Urine Urobilinogen <2.0 mg/dL (<2.0) 08/02/17 00:30 Ur Leukocyte Esterase Negative (Negative) 08/02/17 00:30 CBC & Chem 7: 08/02/17 06:30 08/02/17 06:30 Labs: Abnormal Lab Results - Last 24 Hours (Table) 08/01/17 08/01/17 08/01/17 Range/Units 20:05 20:05 20:05 RBC (4.30-5.90) m/uL Hgb (13.0-17.5) gm/dL Hct (39.0-53.0) % Plt Count 106 L (150-450) k/uL Lymphocytes # 0.9 L (1.0-4.8) k/uL Sodium 146 H (137-145) mmol/L Chloride (98-107) mmol/L Carbon Dioxide 31 H (22-30) mmol/L Glucose (74-99) mg/dL Alkaline Phosphatase 141 H (38-126) U/L Creatine Kinase 50 L (55-170) U/L 08/02/17 08/02/17 Range/Units 06:30 06:30 RBC 4.02 L (4.30-5.90) m/uL Hgb 12.4 L (13.0-17.5) gm/dL Hct 37.5 L (39.0-53.0) % Plt Count 101 L (150-450) k/uL Lymphocytes # 0.8 L (1.0-4.8) k/uL Sodium 147 H (137-145) mmol/L Chloride 109 H (98-107) mmol/L Carbon Dioxide (22-30) mmol/L Glucose 68 L (74-99) mg/dL Alkaline Phosphatase (38-126) U/L Creatine Kinase (55-170) U/L Assessment and Plan Plan: This is a 27-year-old male patient who presented with lower extremity pain and muscle aches and generalized discomforts along with 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 He has history of being diagnosed with HIV in 2008 but did not have any follow-up or treatment for this. HIV quantitative will be added, syphilis testing and MRI of the brain. Vancomycin will be discontinued. Blood cultures status received. Further conditions as patient presses. The above dictated assessment and findings were discussed with Dr. Miranda. The impression and plan of care have been directed as dictated. Little Diaz nurse practitioner acting as scribe for Dr. Miranda.
[2017-08-02] MEDS: SODIUM CHLORIDE 0.9% 1,000 ML IV SCH ×2 (09:50→18:04)
--- NOTE | 2017-08-02 11:15 | ECHOF ---
Referral Reason:mental change MEASUREMENTS -------- HEIGHT: 180.3 cm WEIGHT: 95.7 kg BP: 139/87 IVSd: 1.1 cm (0.6 - 1.1) LVIDd: 3.8 cm (3.9 - 5.3) LVPWd: 1.3 cm (0.6 - 1.1) IVSs: 1.6 cm LVIDs: 2.4 cm LVPWs: 1.7 cm Ao Diam: 3.2 cm (2.0 - 3.7) AV Cusp: 1.9 cm (1.5 - 2.6) LA Diam: 3.5 cm (2.7 - 3.8) MV EXCURSION: 20.325 mm (> 18.000) MV EF SLOPE: 101 mm/s (70 - 150) EPSS: 3.6 cm MV E Olegario: 1.28 m/s MV DecT: 221 ms MV A Olegario: 0.43 m/s MV E/A Ratio: 2.94 RAP: 5.00 mmHg RVSP: 12.13 mmHg FINDINGS -------- Resting bradycardia (HR<60bpm). This was a technically good study. The left ventricular size is normal. Left ventricular wall thickness is normal. Overall left vent ricular systolic function is low-normal with, an EF between 50 - 55 %. The right ventricle is normal in size and function. The left atrium is normal in size. The right atrium is normal in size. The aortic valve is trileaflet, and appears structurally normal. No aortic stenosis or regurgitation. Mild mitral regurgitation is present. Trace tricuspid regurgitation present. The right ventricular systolic pressure, as measured by Dopp ler, is 12.13mmHg. Pulmonic valve appears structurally normal. The aortic root size is normal. Normal inferior vena cava with normal inspiratory collapse consistent with estimated right atrial pre ssure of 5 mmHg. The pericardium is normal. CONCLUSIONS -------- 1. Resting bradycardia (HR<60bpm). 2. This was a technically good study. 3. The left ventricular size is normal. 4. Left ventricular wall thickness is normal. 5. Overall left ventricular systolic function is low-normal with, an EF between 50 - 55 %. 6. The right ventricle is normal in size and function. 7. The left atrium is normal in size. 8. The right atrium is normal in size. 9. The aortic valve is trileaflet, and appears structurally normal. No aortic stenosis or regurgitati on. 10. Mild mitral regurgitation is present. 11. Trace tricuspid regurgitation present. 12. The right ventricular systolic pressure, as measured by Doppler, is 12.13mmHg. 13. Pulmonic valve appears structurally normal. 14. The aortic root size is normal. 15. Normal inferior vena cava with normal inspiratory collapse consistent with estimated right atrial pressure of 5 mmHg. 16. The pericardium is normal. HEALTH CARE AIDE: Zita Escobar RDCS
[2017-08-02] MEDS: ACETAMINOPHEN TAB 325 MG TAB PO PRN (11:31)
[2017-08-02] MEDS: NYSTATIN 100,000 UNIT/ML SUSP 500,000 UNIT/5 ML CUP PO SCH ×4 (11:32→22:51)
[2017-08-02 11:47] LABS: T4, Free (Free Thyroxine) 0.9 ng/dL (0.78-2.19)
--- NOTE | 2017-08-02 13:39 | P.PN ---
Progress Note - Text This is an addendum to the dictated cardiology consultation. The patient has a history of HIV infection who presents with symptoms of progressive fatigue. His EKG showed second-degree AV block Mobitz type I. He has no associated dizziness or palpitations. His echocardiogram showed a normal systolic function. His TSH is normal. At this time from the cardiac standpoint no further workup will be needed. We will see him on as needed basis, please feel free to call us for any question.
--- NOTE | 2017-08-02 13:40 | P.CRDCN ---
History of Present Illness Consult date: 08/02/17 Requesting physician: Barrett Alvarez Reason for Consult (text): 2nd Degree heart block Chief complaint: Weakness History of present illness: This is a 27-year-old gentleman with known history of HIV, untreated, who was recently in the hospital and signed out AGAINST MEDICAL ADVICE. The advice given to him at that time was to follow-up with Dr. Miranda. Patient did undergo a brain CT on that admission which revealed cerebral atrophy advanced for patient's age. Presented back to the hospital on this occasion with symptoms of weakness. EKG was performed which revealed second-degree type I heart block for this reason a cardiology consultation was requested. Free T4 and TSH were obtained which came back to normal. Chest x-ray on this admission revealed a possible new right upper lobe infiltrate compared with old. Spine x- ray normal. Echocardiogram with Doppler study was performed which revealed a normal left ventricular systolic function. Blood pressure 138/80. Laboratory data was reviewed, hemoglobin 12.4, platelet count 101, sodium 147, potassium 4.0, BUN 15, creatinine 0.8. At the time of my examination this morning, patient had no complaints, denied any palpitations, no dizziness or lightheadedness, just complains of feeling weak. Past Medical History Past Medical History: No Reported History Additional Past Medical History / Comment(s): hiv + History of Any Multi-Drug Resistant Organisms: None Reported Past Surgical History: No Surgical Hx Reported Past Psychological History: No Psychological Hx Reported Smoking Status: Never smoker Past Alcohol Use History: Occasional Additional Past Alcohol Use History / Comment(s): Patient denies any history of smoking. He does use marijuana and smokes alcohol occasionally. He lives at home with his mother. There are dogs in the home. 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 He denies any recent travel. Past Drug Use History: Marijuana Medications and Allergies Home Medications Medication Instructions Recorded Confirmed Type No Known Home Medications [No 07/08/17 08/01/17 History Known Home Medications] Allergies Allergy/AdvReac Type Severity Reaction Status Date / Time No Known Allergies Allergy Verified 08/01/17 20:06 Physical Exam Vitals: Vital Signs Temp Pulse Pulse Resp BP BP Pulse Ox 08/02/17 11:30 97.2 F L 61 18 139/83 98 04/27/18 08:40 97.0 F L 62 18 139/87 100 08/02/17 03:00 97.8 F 63 17 127/86 99 08/02/17 00:00 96.9 F L 59 L 18 124/85 98 08/01/17 23:00 98.3 F 56 L 16 126/83 95 08/01/17 21:58 18 08/01/17 21:54 97.0 F L 62 16 124/72 98 08/01/17 19:14 97.8 F 72 16 156/105 98 Intake and Output 08/01/17 08/02/17 08/02/17 22:59 06:59 14:59 Intake Total 236 Output Total 0 Balance 0 236 Intake: Oral 236 Output: Urine 0 Stool 0 Other: Voiding Method Urinal # Voids 0 # Bowel Movements 0 Weight 81.647 kg 96 kg PHYSICAL EXAMINATION: HEENT: Head is atraumatic, normocephalic. Pupils equal, round. Neck is supple. There is no elevated jugular venous pressure. HEART EXAMINATION: Heart S1, S2 normal. No murmur or gallop heard. CHEST EXAMINATION: Lungs are clear to auscultation and precussion. No chest wall tenderness is noted on palpation or with deep breathing. ABDOMEN: Soft, nontender. Bowel sounds are heard. No organomegaly noted. EXTREMITIES: 2+ peripheral pulses with no evidence of peripheral edema and no calf tenderness noted. NEUROLOGIC patient is awake, alert and oriented -3. . Results 08/02/17 06:30 08/02/17 06:30 Cardiac Enzymes 08/01/17 Range/Units 20:05 AST 58 (17-59) U/L Coagulation 08/01/17 Range/Units 20:05 PT 9.8 (9.0-12.0) sec APTT 25.2 (22.0-30.0) sec CBC 08/01/17 08/02/17 Range/Units 20:05 06:30 WBC 7.5 5.4 (3.8-10.6) k/uL RBC 4.38 4.02 L (4.30-5.90) m/uL Hgb 13.1 12.4 L (13.0-17.5) gm/dL Hct 39.9 37.5 L (39.0-53.0) % Plt Count 106 L 101 L (150-450) k/uL Comprehensive Metabolic Panel 08/01/17 08/02/17 Range/Units 20:05 06:30 Sodium 146 H 147 H (137-145) mmol/L Potassium 4.0 4.0 (3.5-5.1) mmol/L Chloride 104 109 H (98-107) mmol/L Carbon Dioxide 31 H 28 (22-30) mmol/L BUN 16 15 (9-20) mg/dL Creatinine 0.84 0.82 (0.66-1.25) mg/dL Glucose 83 68 L (74-99) mg/dL Calcium 9.4 8.6 (8.4-10.2) mg/dL AST 58 (17-59) U/L ALT 54 (21-72) U/L Alkaline Phosphatase 141 H (38-126) U/L Total Protein 7.5 (6.3-8.2) g/dL Albumin 3.6 (3.5-5.0) g/dL Current Medications Generic Name Dose Route Start Last Admin Trade Name Freq PRN Reason Stop Dose Admin Acetaminophen 650 mg 08/01/17 22:57 08/02/17 11:31 Tylenol Tab PO 650 mg Q6HR PRN Administration Mild Pain or Fever > 100.5 Sodium Chloride 1,000 mls @ 100 mls/hr 08/01/17 20:45 08/02/17 09:50 Saline 0.9% IV 100 mls/hr .Q10H SANDRA Administration Ibuprofen 400 mg 08/01/17 22:57 Motrin PO Q6HR PRN Mild Pain or Fever > 100.5 Ketorolac Tromethamine 30 mg 08/01/17 22:57 Toradol IVP 08/06/17 22:58 Q6HR PRN Moderate Pain Naloxone HCl 0.2 mg 08/01/17 22:57 Narcan IV Q2M PRN Opioid Reversal Nystatin 500,000 unit 08/01/17 22:30 08/02/17 11:32 Mycostatin Oral Susp PO 500,000 unit QID SANDRA Administration Ondansetron HCl 4 mg 08/01/17 22:57 Zofran IVP Q8HR PRN Nausea And Vomiting Pantoprazole Sodium 40 mg 08/02/17 09:00 08/02/17 11:31 Protonix IV 40 mg DAILY SANDRA Administration Intake and Output 08/01/17 08/02/1708/02/18 22:59 06:59 14:59 Intake Total 236 Output Total 0 Balance 0 236 Intake: Oral 236 Output: Urine 0 Stool 0 Other: Voiding Method Urinal # Voids 0 # Bowel Movements 0 Weight 81.647 kg 96 kg 08/02/17 06:30 08/02/17 06:30 EKG Interpretations (text) EKG shows a second-degree heart block type I Assessment and Plan Plan: Assessment and plan #1 weakness, and the patient with known HIV, untreated. #2 second-degree type I heart block Plan Free-T4 and TSH are normal, echocardiogram with Doppler study was performed which revealed a normal left ventricular systolic function. From cardiology's perspective we will recommend to continue the patient on his current therapy. We will follow on an as-needed basis only, please don't hesitate to call with any questions. DNP note has been reviewed, I agree with a documented findings and plan of care. Patient was seen and examined.
--- NOTE | 2017-08-02 20:22 | P.HPIM ---
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 second-degree AV block and neurology for lower extremity weakness,pt s/p MRI of the brain pending the result Review of Systems 14 point systemic review were negative excess was mentioned in the HPI Past Medical History Past Medical History: No Reported History Additional Past Medical History / Comment(s): hiv + History of Any Multi-Drug Resistant Organisms: None Reported Past Surgical History: No Surgical Hx Reported Past Psychological History: No Psychological Hx Reported Smoking Status: Never smoker Past Alcohol Use History: Occasional Additional Past Alcohol Use History / Comment(s): Patient denies any history of smoking. He does use marijuana and smokes alcohol occasionally. He lives at home with his mother. There are dogs in the home. 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 He denies any recent travel. Past Drug Use History: Marijuana Medications and Allergies Home Medications Medication Instructions Recorded Confirmed Type No Known Home Medications [No 07/08/17 08/01/17 History Known Home Medications] Allergies Allergy/AdvReac Type Severity Reaction Status Date / Time No Known Allergies Allergy Verified 08/01/17 20:06 Physical Exam Vitals: Vital Signs Temp Pulse Pulse Resp BP BP Pulse Ox 08/02/17 08:40 97.0 F L 62 18 139/87 100 08/02/17 03:00 97.8 F 63 17 127/86 99 08/02/17 00:00 96.9 F L 59 L 18 124/85 98 08/01/17 23:00 98.3 F 56 L 16 126/83 95 08/01/17 21:58 18 08/01/17 21:54 97.0 F L 62 16 124/72 98 08/01/17 19:14 97.8 F 72 16 156/105 98 Intake and Output 08/01/17 08/02/17 08/02/17 22:59 06:59 14:59 Intake Total 236 Output Total 0 Balance 0 236 Intake: Oral 236 Output: Urine 0 Stool 0 Other: Voiding Method Urinal # Voids 0 # Bowel Movements 0 Weight 81.647 kg 96 kg Constitutional: No acute distress, conversant, pleasant Eyes: Anicteric sclerae, moist conjunctiva, no lid-lag PERRLA ENMT: NC/AT Oropharynx clear, no erythema, exudates Neck: Supple, FROM, no masses, or JVD No carotid bruits No thyromegaly Lungs: Clear to auscultation Clear to percussion Normal respiratory effort, no accessory muscle use Cardiovascular: Heart regular in rate and rhythm, No murmurs, gallops, or rubs No peripheral edema Abdominal: Soft Nontender, no guarding, rebound or rigidity Abdomen moving with respiration Normoactive bowel sounds No hepatomegaly, No splenomegaly No palpable mass No abdominal wall hernia noted Skin: Normal temperature, tone, texture, turgor No induration No subcutaneous nodules No rash, lesions No ulcers Extremities: No digital cyanosis No clubbing Pedal pulses intact and symmetrical Radial pulses intact and symmetrical Normal gait and station No calf tenderness Psychiatric: Alert and oriented to person, place and time Appropriate affect Intact judgement Neuro: Muscles Strength 5/5 in all 4 extremities Sensation to light touch grossly present throughout Cranial nerves II-XII grossly intact No focal sensory deficits Results CBC & Chem 7: 08/02/17 06:30 08/02/17 06:30 Labs: Abnormal Lab Results - Last 24 Hours (Table) 08/01/17 08/01/17 08/01/17 Range/Units 20:05 20:05 20:05 RBC (4.30-5.90) m/uL Hgb (13.0-17.5) gm/dL Hct (39.0-53.0) % Plt Count 106 L (150-450) k/uL Lymphocytes # 0.9 L (1.0-4.8) k/uL Sodium 146 H (137-145) mmol/L Chloride (98-107) mmol/L Carbon Dioxide 31 H (22-30) mmol/L Glucose (74-99) mg/dL Alkaline Phosphatase 141 H (38-126) U/L Creatine Kinase 50 L (55-170) U/L 08/02/17 08/02/17 Range/Units 06:30 06:30 RBC 4.02 L (4.30-5.90) m/uL Hgb 12.4 L (13.0-17.5) gm/dL Hct 37.5 L (39.0-53.0) % Plt Count 101 L (150-450) k/uL Lymphocytes # 0.8 L (1.0-4.8) k/uL Sodium 147 H (137-145) mmol/L Chloride 109 H (98-107) mmol/L Carbon Dioxide (22-30) mmol/L Glucose 68 L (74-99) mg/dL Alkaline Phosphatase (38-126) U/L Creatine Kinase (55-170) U/L Thrombosis Risk Factor Assmnt - Choose All That Apply Each Factor Represents 1 point: Medical pt on bed rest Thrombosis Risk Factor Assessment Total Risk Factor Score: 1 Thrombosis Risk Factor Assessment Level: Low Risk Assessment and Plan Assessment: bilateral lower ext weakness , mainly on the left side HIV, no treatment second degree heart block Plan: pt is with 2 months history of lower ext weakness, pt could not specify why he decided to come to the hosptal after 2 month, denies progressive disease to me pt is being evaluated by ID and neurology team , MRI of the brain is done and result is pending pt is found to have second degree heart block and he was transferred from the general medical floor to the telemetry , cardiology consult is appreciated, keep monitoring
--- NOTE | 2017-08-02 20:25 | MR ---
EXAMINATION TYPE: MR brain wo/w con DATE OF EXAM: 08/02/2017 COMPARISON: NONE HISTORY: LE weakness, pneumonia, HIV encephalopathy TECHNIQUE: Multiplanar, multisequence images of the brain and brainstem is performed without and with IV contras t, utilizing 10 mL intravenous Gadavist . FINDINGS: There is moderate diffuse cerebral cortical atrophy. There is no mass effect nor midline sh ift. There is no sign of intracranial hemorrhage. There is diffuse increased signal in the periventri cular white matter on the T2 and FLAIR images. I see no cortical infarct. There is thinning of the co rpus callosum. Sella turcica appears normal. I see no pathologic enhancement. There is some mucosal t hickening in the maxillary sinuses and ethmoid sinuses. IMPRESSION: Moderate diffuse atrophy. Diffuse white matter disease. No evidence of cortical infarct. Ethmoid and maxillary sinusitis.
--- NOTE | 2017-08-02 20:25 | P.CNNES ---
History of Present Illness Consult date: 08/02/17 Reason for Consult: Patient is HIV positive and now with bilateral leg weakness. History of Present Illness: This patient is a 27-year-old right-handed -Ivorian male who was admitted to hospital recently on 07/08/2017 for bilateral leg weakness and difficulty with gait. Symptoms have been progressively worsening over the past 2 months. He underwent a computed tomography scan of the brain during that admission which failed to reveal any acute changes. There was no abnormal enhancement seen. There was significant cerebral atrophy quite advanced for the patient's age. Patient has history of underlying HIV which was diagnosed in 2008. He has never sought specific treatment for the HIV and is not been on any retroviral medications for this condition. In the last 2 months his symptoms have been progressively worsening. Apparently his last admission he signed out AGAINST MEDICAL ADVICE and did not seek follow-up in the infectious disease clinic. He was brought back to the emergency room yesterday for reevaluation of the same symptoms of bilateral leg weakness. He is not a very good historian and is unable to provide details of his past history. He is being scheduled for MRI of the brain today the results of which are still pending. Patient states he does not experience any back pain at this time. He does have difficulty standing and walking at home and at times becomes very unsteady. 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 We have recommended for the patient to have an MRI of the lumbar spine for further evaluation as well given his history of HIV positive status. The patient is not able to provide much details and has not been seen in the infectious disease clinic. We will await further recommendations from infectious disease and terms of further workup for the patient. He is to undergo further laboratory for quantitative testing for HIV as well as syphilis testing. The patient denies any bowel or bladder incontinence. He denies any severe back pain at this time. We will continue to follow his progress closely and we'll give further recommendations pending his neuro imaging studies. The patient is now admitted and neurology has been consulted for further evaluation and recommendations. Review of Systems Constitutional: Denies chills, Denies fever Eyes: denies blurred vision, denies pain Ears, nose, mouth and throat: Denies headache, Denies sore throat Cardiovascular: Denies chest pain, Denies shortness of breath Respiratory: Denies cough Gastrointestinal: Denies abdominal pain, Denies diarrhea, Denies nausea, Denies vomiting Musculoskeletal: Denies myalgias Integumentary: Denies pruritus, Denies rash Neurological: Reports change in mentation, Reports confusion, Reports gait dysfunction, Reports lack of coordination, Reports memory loss, Reports paresthesias, Reports sensory deficit, Reports tingling, Denies numbness, Denies weakness Psychiatric: Denies anxiety, Denies depression Endocrine: Denies fatigue, Denies weight change Past Medical History Past Medical History: No Reported History Additional Past Medical History / Comment(s): hiv + History of Any Multi-Drug Resistant Organisms: None Reported Past Surgical History: No Surgical Hx Reported Past Psychological History: No Psychological Hx Reported Smoking Status: Never smoker Past Alcohol Use History: Occasional Additional Past Alcohol Use History / Comment(s): Patient denies any history of smoking. He does use marijuana and smokes alcohol occasionally. He lives at home with his mother. There are dogs in the home. 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 He denies any recent travel. Past Drug Use History: Marijuana Medications and Allergies Home Medications Medication Instructions Recorded Confirmed Type No Known Home Medications [No 07/08/17 08/01/17 History Known Home Medications] Allergies Allergy/AdvReac Type Severity Reaction Status Date / Time No Known Allergies Allergy Verified 08/01/17 20:06 Physical Examination - Vital Signs Vital Signs: Vital Signs Temp Pulse Pulse Resp BP BP Pulse Ox 08/02/17 11:30 97.2 F L 61 18 139/83 98 08/02/17 08:40 97.0 F L 62 18 139/87 100 08/02/17 03:00 97.8 F 63 17 127/86 99 08/02/17 00:00 96.9 F L 59 L 18 124/85 98 08/01/17 23:00 98.3 F 56 L 16 126/83 95 08/01/17 21:58 18 08/01/17 21:54 97.0 F L 62 16 124/72 98 08/01/17 19:14 97.8 F 72 16 156/105 98 Intake and Output 08/02/17 08/02/17 08/02/17 06:59 14:59 22:59 Intake Total 1273 Output Total 0 Balance 0 1273 Intake: Intake, IV Titration 800 Amount Sodium Chloride 0.9% 1, 800 000 ml @ 100 mls/hr IV . Q10H [facility] Rx#:[id number] Oral 473 Output: Urine 0 Stool 0 Other: Voiding Method Urinal # Voids 0 # Bowel Movements 0 Weight 96 kg - Constitutional General appearance: average body habitus, cooperative - EENT EENT: PERRL, mucous membranes moist - Respiratory Respiratory: lungs clear, normal breath sounds - Cardiovascular Cardiovascular: regular rate, normal S1, normal S2 Extremities: no peripheral edema bilaterally - Gastrointestinal Gastrointestinal: normoactive bowel sounds - Integumentary Integumentary: normal - Neurologic Cranial nerve examination: anosmic, PERRL, EOMI, VFF, V1/V2/V3 grossly intact, face symmetric, tongue midline, intact gag reflex, intact corneal reflex, normal palatal elevation Speech examination: intact Sensorimotor examination: intact Motor examination - right side: 3/5: knee extensors, dorsiflexion, toe extension (EHL), plantarflexion, 4/5: biceps, triceps, wrist flexion, wrist extension, emergency medical technician, hip flexors Motor examination - left side: 3/5: knee extensors, dorsiflexion, toe extension (EHL), plantarflexion, 4/5: biceps, triceps, wrist flexion, wrist extension, emergency medical technician, hip flexors Detailed sensory examination: intact Reflex and gait examination: intact Reflexes: 1+: ankle, bicep, knee, tricep - Musculoskeletal Musculoskeletal: no pain - Psychiatric Psychiatric: mood/affect appropriate, cooperative Results - Laboratory Findings CBC and BMP: 08/02/17 06:30 08/02/17 06:30 Abnormal Lab Findings: Abnormal Labs 08/01/17 08/01/17 08/01/17 20:05 20:05 20:05 RBC Hgb Hct Plt Count 106 L Lymphocytes # 0.9 L Sodium 146 H Chloride Carbon Dioxide 31 H Glucose Alkaline Phosphatase 141 H Creatine Kinase 50 L 08/02/17 08/02/17 06:30 06:30 RBC 4.02 L Hgb 12.4 L Hct 37.5 L Plt Count 101 L Lymphocytes # 0.8 L Sodium 147 H Chloride 109 H Carbon Dioxide Glucose 68 L Alkaline Phosphatase Creatine Kinase Assessment and Plan (1) HIV (human immunodeficiency virus infection) Current Visit: Yes Status: Acute Code(s): B20 - HUMAN IMMUNODEFICIENCY VIRUS [HIV] DISEASE SNOMED Code(s): 05148427 (2) Lower extremity weakness Current Visit: Yes Status: Acute Code(s): R29.898 - OTH SYMPTOMS AND SIGNS INVOLVING THE MUSCULOSKELETAL SYSTEM SNOMED Code(s): 133080694 (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 His symptoms have been progressing over the past 2 months. He signed out AMA recently on 07/08/2017. He returned to the ER yesterday and was subsequently admitted. He underwent a MRI of the brain today the results of which are still pending. We have recommended the patient undergo MRI of the lumbar spine for further evaluation. He may have some degree of HIV neuropathy producing his leg weakness. We will await further recommendations from infectious disease as he has not been on any specific medication to treat his HIV which was diagnosed in 2008. He is a very poor historian and there is some degree of HIV encephalopathy noted on his exam today. We will continue close neurological follow-up with the patient. So overall prognosis at this time remains very guarded. Time with Patient: Greater than 30
[2017-08-03] MEDS: SODIUM CHLORIDE 0.9% 1,000 ML IV SCH ×3 (04:05→23:25)
[2017-08-03] MEDS: PANTOPRAZOLE 40 MG TABLET PO SCH (06:06)
[2017-08-03 06:23] LABS: Anion Gap 10 mmol/L; Blood Urea Nitrogen 13 mg/dL (9-20); Carbon Dioxide 29 mmol/L (22-30); Chloride 107 mmol/L (98-107); Glucose 79 mg/dL (74-99); Potassium 4.3 mmol/L (3.5-5.1); Sodium 146 mmol/L (137-145)
--- NOTE | 2017-08-03 07:36 | P.CON ---
Consult Note - . Consult date: 08/02/17 Assessment/Plan:: This is a 27-year-old Afro-[place]ese male who had a recent hospitalization on 05/2017 at which time he presented with bilateral lower extremity weakness and broad-based gait. Been progressively getting worse for 2 months. He underwent a CT of the brain showed no acute intracranial process or abnormal intracranial enhancement. Cerebral atrophy is advanced for patient's age. 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 T suppressor cells 680, percentage of T4 helper 14, absolute CD4 helper 149, CD4/CD8 ratio 0.2, percentage of CD8 suppressor 65. Patient up signing himself out AGAINST MEDICAL ADVICE. He was to follow-up with Dr. Miranda but did not do so. Patient has history of HIV that was diagnosed in 2008 but he has never sought treatment and has not been on any retro-antiviral medication for this. Patient presented back to [facility] emergency center on August 01 with complaints of bilateral lower extremity pain and muscle aches. Patient complains of feeling pain all over his body. He has an exaggerated response to light palpation. He has difficulty rolling in his bed due to pain. Patient denies having any cough, shortness of breath, fever, chills. He had a chest x- ray that showed possible new right upper lobe infiltrate. Lumbar spine was normal. Patient was given cefepime and Diflucan and Levaquin in the emergency center and continued on vancomycin. She was admitted to the selective care unit and there is a consult in place with cardiology for second degree AV block and with Dr. Bentley for lower extremity weakness. Please see the consult note is dictated by nurse practitioner Little Baezlorie. 27-year-old male who has a known history of HIV and by his low CD4 count Ades has not been under therapy. He now presents with some neurological complaints especially of weakness. The patient also seems to have difficulties with his mentation. Concern at this point and will be for HIV encephalopathy, computed tomography scan has been performed now have asked for MRI to further evaluate for structural invasive process of the brain. He is at risk for opportunistic infection as well as lymphoma. Neurology will evaluate and lumbar puncture is being requested ensuring that VDRL of the CSF is also obtained. The patient has a low CD4 count we've asked for a viral load as well as a genotype so we may be able to initiate antiviral therapy. This will be a challenge while he is hospitalized. the patient does agree to treatment for HIV therapy once possible. With his current mental status he simply cannot relate as why he has not been treated so far. He is receiving antibiotic therapy was planned to have a possible pneumonia and cultures are process. With a lumbar puncture results and further testing for the next plans. I agree with evaluation, assessment and plan as dictated by nurse practitioner Mrs. Little Diaz.
[2017-08-03] MEDS: NYSTATIN 100,000 UNIT/ML SUSP 500,000 UNIT/5 ML CUP PO SCH ×4 (08:48→21:11)
--- NOTE | 2017-08-03 10:56 | P.PN ---
Subjective Patient is seen and examined by me at bedside Patient looks his stable from yesterday no new complaints No chest pain, dyspnea, or dizziness Objective - Vital Signs Vital signs: Vital Signs Temp 97 F L 08/03/17 04:00 Pulse 55 L 08/03/17 08:00 Resp 18 08/03/17 08:00 BP 140/87 08/03/17 08:00 Pulse Ox 98 08/03/17 08:00 Intake & Output 08/02/17 08/03/17 08/03/17 18:59 06:59 18:59 Intake Total 1510 200 120 Output Total 675 Balance 1510 -475 120 Weight 93.2 kg Intake: Intake, IV Titration 800 Amount Sodium Chloride 0.9% 1, 800 000 ml @ 100 mls/hr IV . Q10H [facility] Rx#:[id number] Oral 710 200 120 Output: Urine 675 Other: Voiding Method Urinal Urinal - Exam Constitutional: No acute distress, conversant, pleasant Eyes: Anicteric sclerae, moist conjunctiva, no lid-lag PERRLA ENMT: NC/AT Oropharynx clear, no erythema, exudates Neck: Supple, FROM, no masses, or JVD No carotid bruits No thyromegaly Lungs: Clear to auscultation Clear to percussion Normal respiratory effort, no accessory muscle use Cardiovascular: Heart regular in rate and rhythm, No murmurs, gallops, or rubs No peripheral edema Abdominal: Soft Nontender, no guarding, rebound or rigidity Abdomen moving with respiration Normoactive bowel sounds No hepatomegaly, No splenomegaly No palpable mass No abdominal wall hernia noted Skin: Normal temperature, tone, texture, turgor No induration No subcutaneous nodules No rash, lesions No ulcers Extremities: No digital cyanosis No clubbing Pedal pulses intact and symmetrical Radial pulses intact and symmetrical Normal gait and station No calf tenderness Psychiatric: Alert and oriented to person, place and time Appropriate affect Intact judgement Neuro: Muscles Strength symmetrical weakness of both lower extremities Sensation to light touch grossly present throughout Cranial nerves II-XII grossly intact No focal sensory deficits - Labs CBC & Chem 7: 08/02/17 06:30 08/03/17 05:36 Labs: Abnormal Lab Results - Last 24 Hours (Table) 08/02/17 08/03/17 Range/Units 15:19 05:36 Sodium 146 H (137-145) mmol/L Treponema pallidum Ab Reactive H (Non-Reactive) Microbiology - Last 24 Hours (Table) 08/01/17 20:05 Blood Culture - Preliminary Blood No Growth after 24 hours Assessment and Plan Assessment: HIV HIV encephalopathy, possible HIV neuroplasty, possible Second degree heart block, Mobitz type I Positive Treponema pallidum Plan: He has second degree heart block with Mobitz type I cardiology evaluation is appreciated no further recommendation and workup for now TSH within normal limits and echo is reviewed He has positive Treponema pallidum test, infectious disease on the case Patient underwent MRI of the brain which shows cerebral atrophy, neurological input is appreciated 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
[2017-08-03] MEDS ORDERED: VANCOMYCIN TROUGH DUE 1 EACH MISC MISCELLANE ONE (11:00)
--- NOTE | 2017-08-03 16:32 | P.PN ---
Subjective Progress Note Date: 08/03/17 this patient is a 27-year-old -Serbian male who is being evaluated for HIV encephalopathy and bilateral lower extremity weakness. Patient was able to complete MRI of the brain with and without gadolinium yesterday. MRI results indicated moderate diffuse atrophy. Diffuse white matter disease was noted. No evidence of cortical infarction. No enhancing lesions were seen. Patient still complains of bilateral leg weakness. We have recommended MRI of the lumbar spine to be done hopefully today. His clinical history of HIV status has been diagnosed back in 2008. He has not sought out any specific treatment for his HIV condition. Infectious disease is following the patient closely and are recommending further testing and evaluation for the patient. infectious disease is recommending lumbar puncture to be done. Would agree with this procedure and we will await for this test results. 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 We will await his MRI of the lumbar spine and we'll give further recommendations. The patient was able to stand today and walk in his room without any difficulties. He states his leg pain has improved since yesterday. He was seen by infectious disease and they are recommending a lumbar puncture procedure to be done and we will await this testing. We reviewed the results of the MRI of the brain today with the patient. So overall prognosis at this time remains very guarded. Objective - Vital Signs Vital signs: Vital Signs Temp 97.0 F L 08/03/17 11:45 Pulse 60 08/03/17 11:45 Resp 18 08/03/17 11:45 BP 117/86 08/03/17 11:45 Pulse Ox 98 08/03/17 11:45 Intake & Output 08/02/17 08/03/17 08/03/17 18:59 06:59 18:59 Intake Total 1510 200 360 Output Total 675 800 Balance 1510 475 -440 Weight 93.2 kg Intake: Intake, IV Titration 800 Amount Sodium Chloride 0.9% 1, 800 000 ml @ 100 mls/hr IV . Q10H [facility] Rx#:[id number] Oral 710 200 360 Output: Urine 675 800 Other: Voiding Method Urinal Urinal - Exam physical examination: PHYSICAL EXAMINATION: Patient is resting comfortably in bed. VITAL SIGNS: Blood pressure is [117/86]. Heart rate is [60]. Respiration is [18] . Temperature is [97.0]. HEENT: Head is atraumatic, neck is supple, there were no carotid bruits. CHEST: Lungs are clear to auscultation and percussion. CARDIAC: S1, S2 normal rate and rhythm. There is no murmur. ABDOMEN: Soft and nontender. Bowel sounds are present. EXTREMITIES: There is no pedal edema. Peripheral pulses are present. Neurological examination: This patient's neurological examination is unchanged from yesterday. - Labs CBC & Chem 7: 08/02/17 06:30 08/03/17 05:36 Labs: Abnormal Lab Results - Last 24 Hours (Table) 08/02/17 08/03/17 Range/Units 15:19 05:36 Sodium 146 H (137-145) mmol/L Treponema pallidum Ab Reactive H (Non-Reactive) Microbiology - Last 24 Hours (Table) 08/01/17 20:05 Blood Culture - Preliminary Blood No Growth after 24 hours Assessment and Plan (1) HIV (human immunodeficiency virus infection) Current Visit: Yes Status: Acute Code(s): B20 - HUMAN IMMUNODEFICIENCY VIRUS [HIV] DISEASE SNOMED Code(s): 72738148 (2) Lower extremity weakness Current Visit: Yes Status: Acute Code(s): R29.898 - OTH SYMPTOMS AND SIGNS INVOLVING THE MUSCULOSKELETAL SYSTEM SNOMED Code(s): 930945585 (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 He underwent a MRI of the brain with and without gadolinium yesterday which came back negative for any evidence of acute stroke or enhancing lesions. His leg weakness is shown some improvement today. We had recommended an MRI of the lumbar spine to be done but this is still pending. The patient was seen by infectious disease yesterday. They are recommending a lumbar puncture for further evaluation of his HIV status. We will continue to follow his progress closely. He has been up and ambulating today in the room without much difficulties. His overall prognosis remains guarded. We will give further recommendations pending the results of his MRI lumbar spine and spinal fluid analysis. His overall prognosis remains guarded.
[2017-08-04] MEDS: PANTOPRAZOLE 40 MG TABLET PO SCH (06:00)
[2017-08-04 07:05] LABS: Anion Gap 12 mmol/L; Blood Urea Nitrogen 11 mg/dL (9-20); Calcium 9.3 mg/dL (8.4-10.2); Carbon Dioxide 32 mmol/L (22-30); Chloride 102 mmol/L (98-107); Glucose 75 mg/dL (74-99); Potassium 4.1 mmol/L (3.5-5.1); Sodium 146 mmol/L (137-145)
[2017-08-04] MEDS: SODIUM CHLORIDE 0.9% 1,000 ML IV SCH ×2 (09:01→18:24)
[2017-08-04] MEDS: NYSTATIN 100,000 UNIT/ML SUSP 500,000 UNIT/5 ML CUP PO SCH ×4 (09:15→22:48)
[2017-08-04] MEDS: POLYETHYLENE GLYCOL 3350 17 GM POWD.PACK PO PRN (12:46)
--- NOTE | 2017-08-04 14:54 | P.PN ---
Subjective Patient is seen and examined by me at bedside Patient looks his stable from yesterday no new complaints No chest pain, dyspnea, or dizziness Objective - Vital Signs Vital signs: Vital Signs Temp 96.6 F L 08/04/17 12:00 Pulse 89 08/04/17 12:00 Resp 16 08/04/17 12:00 BP 119/82 08/04/17 12:00 Pulse Ox 95 08/04/17 12:00 Intake & Output 08/03/17 08/04/17 08/04/17 18:59 06:59 18:59 Intake Total 582 240 Output Total 1999 500 1000 Balance -1418 -500 -760 Weight 93.7 kg Intake: Oral 582 240 Output: Urine 1999 500 1000 Other: Voiding Method Urinal Urinal # Voids 400 - Exam Constitutional: No acute distress, conversant, pleasant Eyes: Anicteric sclerae, moist conjunctiva, no lid-lag PERRLA ENMT: NC/AT Oropharynx clear, no erythema, exudates Neck: Supple, FROM, no masses, or JVD No carotid bruits No thyromegaly Lungs: Clear to auscultation Clear to percussion Normal respiratory effort, no accessory muscle use Cardiovascular: Heart regular in rate and rhythm, No murmurs, gallops, or rubs No peripheral edema Abdominal: Soft Nontender, no guarding, rebound or rigidity Abdomen moving with respiration Normoactive bowel sounds No hepatomegaly, No splenomegaly No palpable mass No abdominal wall hernia noted Skin: Normal temperature, tone, texture, turgor No induration No subcutaneous nodules No rash, lesions No ulcers Extremities: No digital cyanosis No clubbing Pedal pulses intact and symmetrical Radial pulses intact and symmetrical Normal gait and station No calf tenderness Psychiatric: Alert and oriented to person, place and time Appropriate affect Intact judgement Neuro: Muscles Strength symmetrical weakness of both lower extremities Sensation to light touch grossly present throughout Cranial nerves II-XII grossly intact No focal sensory deficits - Labs CBC & Chem 7: 08/02/17 06:30 08/04/17 05:16 Labs: Abnormal Lab Results - Last 24 Hours (Table) 08/04/17 Range/Units 05:16 Sodium 146 H (137-145) mmol/L Carbon Dioxide 32 H (22-30) mmol/L Microbiology - Last 24 Hours (Table) 08/01/17 20:05 Blood Culture - Preliminary Blood No Growth after 48 hours Assessment and Plan Assessment: HIV HIV encephalopathy, 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, possible Second degree heart block, Mobitz type I Positive Treponema pallidum Plan: Consults from cardiology, neurology, and ID disease are appreciated He has second degree heart block with Mobitz type I cardiology evaluation is appreciated no further recommendation and workup for now TSH within normal limits and echo is reviewed He has positive Treponema pallidum test, infectious disease on the case Patient underwent MRI of the brain which shows cerebral atrophy, neurological input is appreciated 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
--- NOTE | 2017-08-04 18:46 | P.PN ---
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 Patient was able to complete MRI of the brain with and without gadolinium yesterday. MRI results indicated moderate diffuse atrophy. Diffuse white matter disease was noted. No evidence of cortical infarction. No enhancing lesions were seen. Patient still complains of bilateral leg weakness. We have recommended MRI of the lumbar spine to be done hopefully today. His clinical history of HIV status has been diagnosed back in 2008. He has not sought out any specific treatment for his HIV condition. Infectious disease is following the patient closely and are recommending further testing and evaluation for the patient. infectious disease is recommending lumbar puncture to be done. Would agree with this procedure and we will await for this test results. 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 We will await his MRI of the lumbar spine and we'll give further recommendations. The patient was able to stand today and walk in his room without any difficulties. He states his leg pain has improved since yesterday. He was seen by infectious disease and they are recommending a lumbar puncture procedure to be done and we will await this testing. 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 Patient is not a very good historian and states today he has noted again some weakness in the legs. He is able to ambulate to the bathroom without any difficulties at this time. We reviewed the results of the MRI of the brain today with the patient. So far his overall prognosis at this time remains very guarded. Objective - Vital Signs Vital signs: Vital Signs Temp 96.6 F L 08/04/17 12:00 Pulse 89 08/04/17 12:00 Resp 16 08/04/17 12:00 BP 119/82 08/04/17 12:00 Pulse Ox 95 08/04/17 12:00 Intake & Output 08/03/17 08/04/17 08/04/17 18:59 06:59 18:59 Intake Total 582 240 Output Total 2000 500 1000 Balance -1418 -500 -760 Weight 93.7 kg Intake: Oral 582 240 Output: Urine 2000 500 1000 Other: Voiding Method Urinal Urinal # Voids 400 - Exam physical examination: PHYSICAL EXAMINATION: Patient is resting comfortably in bed. VITAL SIGNS: Blood pressure is [120/82]. Heart rate is [89]. Respiration is [16] . Temperature is [97.0]. HEENT: Head is atraumatic, neck is supple, there were no carotid bruits. CHEST: Lungs are clear to auscultation and percussion. CARDIAC: S1, S2 normal rate and rhythm. There is no murmur. ABDOMEN: Soft and nontender. Bowel sounds are present. EXTREMITIES: There is no pedal edema. Peripheral pulses are present. Neurological examination: This patient's neurological examination is unchanged from yesterday. - Labs CBC & Chem 7: 08/02/17 06:30 08/04/17 05:16 Labs: Abnormal Lab Results - Last 24 Hours (Table) 08/04/17 Range/Units 05:16 Sodium 146 H (137-145) mmol/L Carbon Dioxide 32 H (22-30) mmol/L Microbiology - Last 24 Hours (Table) 08/01/17 20:05 Blood Culture - Preliminary Blood No Growth after 48 hours Assessment and Plan (1) HIV (human immunodeficiency virus infection) Current Visit: Yes Status: Acute Code(s): B20 - HUMAN IMMUNODEFICIENCY VIRUS [HIV] DISEASE SNOMED Code(s): 73994613 (2) Lower extremity weakness Current Visit: Yes Status: Acute Code(s): R29.898 - OTH SYMPTOMS AND SIGNS INVOLVING THE MUSCULOSKELETAL SYSTEM SNOMED Code(s): 175729783 (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 He has a history of HIV which was diagnosed in 2008. He has not been under specific HIV treatment. He has not followed up with infectious disease in the past. The patient is now admitted for further evaluation of his bilateral leg weakness. He underwent an MRI of the brain with and without gadolinium which came back negative for any enhancing lesions. He is scheduled to undergo MRI of the lumbar spine. Laboratory testing revealed him to have a positive treponema pallidum blood tests. Infectious diseases recommending a lumbar puncture to be done for further evaluation. The patient is resting comfortably today. He still has intermittent leg weakness. We will give further recommendations pending completion of his MRI of the lumbar spine. His overall prognosis at this time remains very guarded. We will await further recommendations from infectious disease is well in management of his case.
[2017-08-05] MEDS: PANTOPRAZOLE 40 MG TABLET PO SCH (06:44)
[2017-08-05] MEDS: SODIUM CHLORIDE 0.9% 1,000 ML IV SCH ×3 (06:44→23:37)
[2017-08-05 07:19] LABS: Basophils % (A) 1 %; Eosinophils # (A) 0.1 k/uL (0-0.7); Eosinophils % (A) 2 %; HCT 36.7 % (39.0-53.0); Lymphocytes # (A) 1.1 k/uL (1.0-4.8); Lymphocytes % (A) 32 %; MCH 29.9 pg (25.0-35.0); MCHC 32.7 g/dL (31.0-37.0); MCV 91.6 fL (80.0-100.0); Mean Platelet Volume 9.9; Monocytes # (A) 0.5 k/uL (0-1.0); Monocytes % (A) 13 %; Neutrophils # (A) 1.8 k/uL (1.3-7.7); Neutrophils % (A) 49 %; Platelet Count 101 k/uL (150-450); RBC 4.01 m/uL (4.30-5.90); RDW 13.6 % (11.5-15.5); WBC 3.6 k/uL (3.8-10.6)
[2017-08-05 07:37] LABS: Anion Gap 13 mmol/L; Blood Urea Nitrogen 10 mg/dL (9-20); Calcium 9.4 mg/dL (8.4-10.2); Carbon Dioxide 33 mmol/L (22-30); Chloride 96 mmol/L (98-107); Glucose 71 mg/dL (74-99); Potassium 3.9 mmol/L (3.5-5.1); Sodium 142 mmol/L (137-145)
[2017-08-05] MEDS: NYSTATIN 100,000 UNIT/ML SUSP 500,000 UNIT/5 ML CUP PO SCH ×5 (09:25→23:37)
--- NOTE | 2017-08-05 15:24 | MR ---
EXAMINATION TYPE: MR lumbar spine wo/w con DATE OF EXAM: 08/05/2017 COMPARISON: Lumbar spine x-ray August 01, 2017. CT abdomen pelvis January 03, 2013 HISTORY: Jarred leg weakness, hx HIV TECHNIQUE: Multiplanar, multisequence images of the lumbar spine is performed without and with IV contrast, util izing 9 mL intravenous Gadavist FINDINGS: Sagittal images of the lumbar spine show vertebral body heights and alignment to appear sat isfactory. The intervertebral discs demonstrate normal heights and hydration. The conus medullaris i s normal in position and signal ending mid L1 level. The bone marrow signal intensity is within norm al limits. Post contrast images show some enhancing lumbosacral nerve roots, nonspecific finding. No suspicious nodular enhancement is identified. No significant spurring is seen. Axial images show the T12-L1 level to appear within normal limits. Axial images at L1-L2 level show left paracentral disc protrusion on axial image 24 effacing anterior thecal sac, bilateral neural foramina are patent. Axial images at L2-L3 and L3-L4 levels are felt within normal limits. Axial images at L4-L5 level show mild facet degenerative changes bilaterally but spinal canal is pres erved and bilateral neural foramina are patent. Axial images at L5-S1 level are felt within normal limits. There is enhancing sacral nerve root and spinal canal, nonspecific finding there is enhancing left fabi mbar nerve root upper lumbar levels, nonspecific finding. No suspicious retroperitoneal findings are seen. Paraspinal muscle bulk is preserved. IMPRESSION: Mild degenerative changes in lumbar spine as detailed above.
[2017-08-05 15:30] LABS: HIV-1 RNA DETECTED (Not detected)
--- NOTE | 2017-08-05 15:35 | FL ---
EXAMINATION TYPE: FL guided lumbar puncture LP DATE OF EXAM: 08/05/2017 COMPARISON: Same day MRI study HISTORY: History of HIV with bilateral lower extremity weakness TECHNIQUE: Fluoroscopic assisted lumbar puncture. A total of 41 seconds of fluoroscopic time was util ized during procedure. One spot image was saved to PACS. FINDINGS: Fluoroscopic guidance was provided during fluoroscopic assisted lumbar puncture procedure performed by myself for CSF attainment. Procedure was explained to patient including benefits, risks, and alternatives. An informed consent was then obtained. Overlying skin is prepped and draped in usu al sterile fashion. Lidocaine is used as anesthetic into the skin and subcutaneous tissue. Spinal needle is advanced into spinal canal at L2 level using paraspinal approach. There is poor return of CSF requiring several at tempts at repositioning even with suggesting patient and patient attempted coughing. Finally there is enough CSF obtained for desired labs after several attempts at repositioning. Patient tolerated procedure well without any immediate complication. The patient was kept in the radi ology department for short stay after the procedure and then sent back to floor. Patient vital signs were monitored before during and after procedure and were stable with low heart rate or bradycardia n oted throughout. IMPRESSION: As Above.
[2017-08-05 15:42] LABS: Glucose,CSF 48 mg/dL (40-70); Total Protein,CSF 70 mg/dL (12-60)
[2017-08-05 16:10] LABS: Appearance,CSF Clear; CSF Tube Number 4; CSF Tube Volume 2; Nucleated Cells, CSF 7 u/L (0-5); Red Blood Cell,CSF 460 u/L (0-10)
[2017-08-05 16:13] LABS: Red Blood Cell, CSF Crenated 0 %; Red Blood Cell, CSF Fresh 100 %
--- NOTE | 2017-08-05 18:48 | P.PN ---
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 Patient underwent MRI of the brain initially on admission which was reviewed and is negative for any evidence of acute stroke or hemorrhage. There was diffuse white matter changes noted. Patient also was able to complete MRI of the lumbar spine today for further evaluation of bilateral leg weakness. MRI results indicate mild degenerative changes in the lumbar spine. There was some enhancing areas involving the sacral nerve root and the left lumbar nerve root which were nonspecific findings. No evidence suspicious for retroperitoneal findings as seen. No evidence for any suspicious nodular enhancement in the lumbar spine. We reviewed the results of the MRI of the lumbar spine today with the patient. He still is somewhat confused and slightly disoriented. This is felt to be secondary to HIV encephalopathy. 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 We will await the final results from the laboratory regarding his spinal fluid assessment. Overall the patient seems to be doing fairly well. We are following the patient closely with Dr. Miranda from infectious disease. We will await his further recommendations. As noted the patient has a long history of HIV and is never been specifically treated for this condition. We will continue close neurological follow-up for the patient. His overall prognosis at this time remains guarded. Objective - Vital Signs Vital signs: Vital Signs Temp 96.9 F L 08/05/17 08:00 Pulse 55 L 08/05/17 15:10 Resp 20 08/05/17 15:10 BP 155/95 08/05/17 15:10 Pulse Ox 100 08/05/17 15:10 Intake & Output 08/04/17 08/05/17 08/05/17 18:59 06:59 18:59 Intake Total 702 720 Output Total 1350 800 Balance -648 -800 720 Weight 92.6 kg Intake: Intake, IV Titration 0 Amount Sodium Chloride 0.9% 1, 0 000 ml @ 100 mls/hr IV . Q10H [facility] Rx#:[id number] Oral 702 720 Output: Urine 1350 800 Other: Voiding Method Urinal # Voids 1 # Bowel Movements 1 - Exam physical examination: PHYSICAL EXAMINATION: Patient is resting comfortably in bed. VITAL SIGNS: Blood pressure is [155/95]. Heart rate is [55]. Respiration is [20] . Temperature is [97.7]. HEENT: Head is atraumatic, neck is supple, there were no carotid bruits. CHEST: Lungs are clear to auscultation and percussion. CARDIAC: S1, S2 normal rate and rhythm. There is no murmur. ABDOMEN: Soft and nontender. Bowel sounds are present. EXTREMITIES: There is no pedal edema. Peripheral pulses are present. Neurological examination: This patient's neurological examination is unchanged from yesterday. - Labs CBC & Chem 7: 08/05/17 06:37 08/05/17 06:37 Labs: Abnormal Lab Results - Last 24 Hours (Table) 08/02/17 08/05/17 08/05/17 Range/Units 15:19 06:37 06:37 WBC 3.6 L (3.8-10.6) k/uL RBC 4.01 L (4.30-5.90) m/uL Hgb 12.0 L (13.0-17.5) gm/dL Hct 36.7 L (39.0-53.0) % Plt Count 101 L (150-450) k/uL Chloride 96 L (98-107) mmol/L Carbon Dioxide 33 H (22-30) mmol/L Glucose 71 L (74-99) mg/dL CSF RBC (0-10) u/L CSF Tot Nucleated Cells (0-5) u/L CSF Total Protein (12-60) mg/dL HIV-1 RNA Quant 2,120,855 H (<40) Copies/mL HIV RNA logcopies/mL Ult 6.33 H (<1.60) HIV-1 RNA (PCR) DETECTED H (Not detected) 08/05/17 Range/Units 15:10 WBC (3.8-10.6) k/uL RBC (4.30-5.90) m/uL Hgb (13.0-17.5) gm/dL Hct (39.0-53.0) % Plt Count (150-450) k/uL Chloride (98-107) mmol/L Carbon Dioxide (22-30) mmol/L Glucose (74-99) mg/dL CSF RBC 460 H (0-10) u/L CSF Tot Nucleated Cells 7 H (0-5) u/L CSF Total Protein 70 H (12-60) mg/dL HIV-1 RNA Quant (<40) Copies/mL HIV RNA logcopies/mL Ult (<1.60) HIV-1 RNA (PCR) (Not detected) Microbiology - Last 24 Hours (Table) 08/01/17 20:05 Blood Culture - Preliminary Blood No Growth after 72 hours Assessment and Plan (1) HIV (human immunodeficiency virus infection) Current Visit: Yes Status: Acute Code(s): B20 - HUMAN IMMUNODEFICIENCY VIRUS [HIV] DISEASE SNOMED Code(s): 02121826 (2) Lower extremity weakness Current Visit: Yes Status: Acute Code(s): R29.898 - OTH SYMPTOMS AND SIGNS INVOLVING THE MUSCULOSKELETAL SYSTEM SNOMED Code(s): 702175137 (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 He has a known history of HIV. He has symptoms and clinical findings suggesting HIV encephalopathy. He was able to complete MRI of the lumbar spine today the results are as noted above. He had lumbar puncture performed today and we're waiting the final spinal fluid results. Patient is not showing any significant change in his neurological examination today. We have reviewed the MRI results today with the patient. There is no evidence of any major disc herniation or signs of significant disc disease to explain his lower extremity weakness. He may have underlying HIV neuropathy which will have to be evaluated in the outpatient clinic. At this time the patient is to continue with our current treatment plans. We're waiting further recommendations from infectious disease regarding his spinal fluid results. We will continue to follow his progress closely during this admission. His overall prognosis remains guarded.
--- NOTE | 2017-08-05 22:18 | P.PN ---
Subjective Progress Note Date: 08/05/17 Principal diagnosis: weakness This is a 27-year-old Afro[place] male who had a recent hospitalization on 05/2017 at which time he presented with bilateral lower extremity weakness and broad-based gait. Been progressively getting worse for 2 months. He underwent a CT of the brain showed no acute intracranial process or abnormal intracranial enhancement. Cerebral atrophy is advanced for patient's age. 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 T suppressor cells 680, percentage of seat T4 helper 14, absolute CD4 helper 149, CD4/CD8 ratio 0.2 , percentage of CD8 suppressor 65. Patient up signing himself out AGAINST MEDICAL ADVICE. He was to follow-up with Dr. Miranda but did not do so. Patient has history of HIV that was diagnosed in 2008 but he has never sought treatment and has not been on any retro-antiviral medication for this. Patient presented back to [facility] emergency center on August 01 with complaints of bilateral lower extremity pain and muscle aches. Patient complains of feeling pain all over his body. He has an exaggerated response to light palpation. He has difficulty rolling in his bed due to pain. Patient denies having any cough, shortness of breath, fever, chills. He had a chest x- ray that showed possible new right upper lobe infiltrate. Lumbar spine was normal. Patient was given cefepime and Diflucan and Levaquin in the emergency center and continued on vancomycin. She was admitted to the selective care unit and there is a consult in place with cardiology for second degree AV block and with Dr. Bentley for lower extremity weakness. 08/05/2017 patient is doing somewhat better today. 08/05/2017 patient is feeling somewhat better today. He is undergoing a lumbar puncture is an MRI of his spine. He is to be a bit anxious but wanted to go home. He however is denying any new acute difficulties. Leg weakness continues in still unable to ambulate. Objective - Vital Signs Vital signs: Vital Signs Temp 97.2 F L 08/05/17 19:55 Pulse 72 08/05/17 19:55 Resp 18 08/05/17 20:00 BP 124/72 08/05/17 19:55 Pulse Ox 96 08/05/17 19:55 Intake & Output 08/05/17 08/05/17 08/06/17 06:59 18:59 06:59 Intake Total 720 Output Total 800 450 Balance -800 720 -450 Weight 92.6 kg Intake: Intake, IV Titration 0 Amount Sodium Chloride 0.9% 1, 0 000 ml @ 100 mls/hr IV . Q10H [facility] Rx#:[id number] Oral 720 Output: Urine 800 450 Other: Voiding Method Urinal Urinal # Voids 1 # Bowel Movements 1 - Exam Gen: This is a 27-year-old -[place] male. He is in bed and appears to be comfortable. Much less pain and has some anxiety HEENT: Head is atraumatic, normocephalic. Pupils equal, round. Sclerae is anicteric. Conjunctiva pink. Mucous members of the mouth are moist. No thrush noted. NECK: Supple. No JVD. No lymphadenopathy. No thyromegaly. LUNGS: Clear to auscultation. No wheezes or rhonchi. No intercostal retractions. HEART: Regular rate and rhythm. No murmur. ABDOMEN: Soft. Bowel sounds are present. No masses. No tenderness. EXTREMITIES: No pedal edema. No calf tenderness. NEUROLOGICAL: Patient is awake, alert and oriented x3. Patient has childlike behavior with no previous diagnosis of intellectual disability. - Labs CBC & Chem 7: 08/05/17 06:37 08/05/17 06:37 Labs: Abnormal Lab Results - Last 24 Hours (Table) 08/02/17 08/05/17 08/05/17 Range/Units 15:19 06:37 06:37 WBC 3.6 L (3.8-10.6) k/uL RBC 4.01 L (4.30-5.90) m/uL Hgb 12.0 L (13.0-17.5) gm/dL Hct 36.7 L (39.0-53.0) % Plt Count 101 L (150-450) k/uL Chloride 96 L (98-107) mmol/L Carbon Dioxide 33 H (22-30) mmol/L Glucose 71 L (74-99) mg/dL CSF RBC (0-10) u/L CSF Tot Nucleated Cells (0-5) u/L CSF Total Protein (12-60) mg/dL HIV-1 RNA Quant 2,120,855 H (<40) Copies/mL HIV RNA logcopies/mL Ult 6.33 H (<1.60) HIV-1 RNA (PCR) DETECTED H (Not detected) 08/05/17 Range/Units 15:10 WBC (3.8-10.6) k/uL RBC (4.30-5.90) m/uL Hgb (13.0-17.5) gm/dL Hct (39.0-53.0) % Plt Count (150-450) k/uL Chloride (98-107) mmol/L Carbon Dioxide (22-30) mmol/L Glucose (74-99) mg/dL CSF RBC 460 H (0-10) u/L CSF Tot Nucleated Cells 7 H (0-5) u/L CSF Total Protein 70 H (12-60) mg/dL HIV-1 RNA Quant (<40) Copies/mL HIV RNA logcopies/mL Ult (<1.60) HIV-1 RNA (PCR) (Not detected) Microbiology - Last 24 Hours (Table) 08/01/17 20:05 Blood Culture - Preliminary Blood No Growth after 72 hours Laboratory Results WBC 3.6 k/uL (3.8-10.6) L 08/05/17 06:37 RBC 4.01 m/uL (4.30-5.90) L 08/05/17 06:37 Hgb 12.0 gm/dL (13.0-17.5) L 08/05/17 06:37 Hct 36.7 % (39.0-53.0) L 08/05/17 06:37 MCV 91.6 fL (80.0-100.0) 08/05/17 06:37 MCH 29.9 pg (25.0-35.0) 08/05/17 06:37 MCHC 32.7 g/dL (31.0-37.0) 08/05/17 06:37 RDW 13.6 % (11.5-15.5) 08/05/17 06:37 Plt Count 101 k/uL (150-450) L 08/05/17 06:37 Neutrophils % 49 % 08/05/17 06:37 Lymphocytes % 32 % 08/05/17 06:37 Monocytes % 13 % 08/05/17 06:37 Eosinophils % 2 % 08/05/17 06:37 Basophils % 1 % 08/05/17 06:37 Neutrophils # 1.8 k/uL (1.3-7.7) 08/05/17 06:37 Lymphocytes # 1.1 k/uL (1.0-4.8) 08/05/17 06:37 Monocytes # 0.5 k/uL (0-1.0) 08/05/17 06:37 Eosinophils # 0.1 k/uL (0-0.7) 08/05/17 06:37 Basophils # 0.0 k/uL (0-0.2) 08/05/17 06:37 PT 9.8 sec (9.0-12.0) 08/01/17 20:05 INR 1.0 (<1.2) 08/01/17 20:05 APTT 25.2 sec (22.0-30.0) 08/01/17 20:05 Sodium 142 mmol/L (137-145) 08/05/17 06:37 Potassium 3.9 mmol/L (3.5-5.1) 08/05/17 06:37 Chloride 96 mmol/L (98-107) L 08/05/17 06:37 Carbon Dioxide 33 mmol/L (22-30) H 08/05/17 06:37 Anion Gap 13 mmol/L 08/05/17 06:37 BUN 10 mg/dL (9-20) 08/05/17 06:37 Creatinine 0.76 mg/dL (0.66-1.25) 08/05/17 06:37 Est GFR (CKD-EPI)AfAm >90 (>60 ml/min/1.73 sqM) 08/05/17 06:37 Est GFR (CKD-EPI)NonAf >90 (>60 ml/min/1.73 sqM) 08/05/17 06:37 Glucose 71 mg/dL (74-99) L 08/05/17 06:37 Plasma Lactic Acid Ignacio 0.9 mmol/L (0.7-2.0) 08/01/17 20:43 Calcium 9.4 mg/dL (8.4-10.2) 08/05/17 06:37 Magnesium 1.9 mg/dL (1.6-2.3) 08/02/17 06:30 Total Bilirubin 0.5 mg/dL (0.2-1.3) 08/01/17 20:05 AST 58 U/L (17-59) 08/01/17 20:05 ALT 54 U/L (21-72) 08/01/17 20:05 Alkaline Phosphatase 141 U/L (38-126) H 08/01/17 20:05 Creatine Kinase 50 U/L (55-170) L 08/01/17 20:05 Total Protein 7.5 g/dL (6.3-8.2) 08/01/17 20:05 Albumin 3.6 g/dL (3.5-5.0) 08/01/17 20:05 TSH 1.320 mIU/L (0.465-4.680) 08/02/17 06:30 Free T4 0.90 ng/dL (0.78-2.19) 08/02/17 06:30 Urine Color Yellow 08/02/17 00:30 Urine Appearance Clear (Clear) 08/02/17 00:30 Urine pH 5.5 (5.0-8.0) 08/02/17 00:30 Ur Specific [place] 1.012 (1.001-1.035) 08/02/17 00:30 Urine Protein Negative (Negative) 08/02/17 00:30 Urine Glucose (UA) Negative (Negative) 08/02/17 00:30 Urine Ketones Negative (Negative) 08/02/17 00:30 Urine Blood Negative (Negative) 08/02/17 00:30 Urine Nitrite Negative (Negative) 08/02/17 00:30 Urine Bilirubin Negative (Negative) 08/02/17 00:30 Urine Urobilinogen <2.0 mg/dL (<2.0) 08/02/17 00:30 Ur Leukocyte Esterase Negative (Negative) 08/02/17 00:30 CSF Tube Number 4 08/05/17 15:10 CSF Volume 2 08/05/17 15:10 CSF Appearance Clear 08/05/17 15:10 CSF Color Colorless 08/05/17 15:10 CSF RBC 460 u/L (0-10) H 08/05/17 15:10 CSF Tot Nucleated Cells 7 u/L (0-5) H 08/05/17 15:10 CSF Crenated Cells 0 % 08/05/17 15:10 CSF Fresh RBCs 100 % 08/05/17 15:10 CSF Glucose 48 mg/dL (40-70) 08/05/17 15:10 CSF Total Protein 70 mg/dL (12-60) H 08/05/17 15:10 RPR Non-Reactive 08/02/17 15:19 Treponema pallidum Ab Reactive (Non-Reactive) H 08/02/17 15:19 HIV-1 RNA Quant 2,120,855 Copies/mL (<40) H 08/02/17 15:19 HIV RNA logcopies/mL Ult 6.33 (<1.60) H 08/02/17 15:19 HIV-1 RNA (PCR) DETECTED (Not detected) H 08/02/17 15:19 Microbiology 08/01/17 20:05 Blood Blood Culture - Preliminary No Growth after 72 hours Assessment and Plan (1) HIV (human immunodeficiency virus infection) Current Visit: Yes Status: Acute Code(s): B20 - HUMAN IMMUNODEFICIENCY VIRUS [HIV] DISEASE SNOMED Code(s): 39729519 (2) HIV encephalopathy Narrative/Plan: 27-year-old male who has a known history of HIV and by his low CD4 count Ades has not been under therapy. He now presents with some neurological complaints especially of weakness. The patient also seems to have difficulties with his mentation. Concern at this point and will b.at risk for opportunistic infection as well as lymphoma. Neurology will evaluate and lumbar puncture is being requested ensuring that VDRL of the CSF is also obtained. The patient has a low CD4 count we've asked for a viral load as well as a genotype so we may be able to initiate antiviral therapy. This will be a challenge while he is hospitalized. the patient does agree to treatment for HIV therapy once possible. With his current mental status patient is difficult to evaluate but is able to state on going leg weakness. CSF VDRL is pending Current Visit: Yes Status: Acute Code(s): B20 - HUMAN IMMUNODEFICIENCY VIRUS [HIV] DISEASE; G93.40 - ENCEPHALOPATHY, UNSPECIFIED SNOMED Code(s): 414461680
--- NOTE | 2017-08-05 22:41 | P.PN ---
Subjective Patient is seen and examined by me at bedside Patient looks his stable from yesterday no new complaints No chest pain, dyspnea, or dizziness no change in pt clinical condition , regarding his mentation or leg weakness no new complaint Objective - Vital Signs Vital signs: Vital Signs Temp 97.2 F L 08/05/17 19:55 Pulse 72 08/05/17 19:55 Resp 18 08/05/17 20:00 BP 124/72 08/05/17 19:55 Pulse Ox 96 08/05/17 19:55 Intake & Output 08/05/17 08/05/17 08/06/17 06:59 18:59 06:59 Intake Total 720 Output Total 800 450 Balance -800 720 -450 Weight 92.6 kg Intake: Intake, IV Titration 0 Amount Sodium Chloride 0.9% 1, 0 000 ml @ 100 mls/hr IV . Q10H [facility] Rx#:[id number] Oral 720 Output: Urine 800 450 Other: Voiding Method Urinal Urinal # Voids 1 # Bowel Movements 1 - Exam Constitutional: No acute distress, conversant, pleasant Eyes: Anicteric sclerae, moist conjunctiva, no lid-lag PERRLA ENMT: NC/AT Oropharynx clear, no erythema, exudates Neck: Supple, FROM, no masses, or JVD No carotid bruits No thyromegaly Lungs: Clear to auscultation Clear to percussion Normal respiratory effort, no accessory muscle use Cardiovascular: Heart regular in rate and rhythm, No murmurs, gallops, or rubs No peripheral edema Abdominal: Soft Nontender, no guarding, rebound or rigidity Abdomen moving with respiration Normoactive bowel sounds No hepatomegaly, No splenomegaly No palpable mass No abdominal wall hernia noted Skin: Normal temperature, tone, texture, turgor No induration No subcutaneous nodules No rash, lesions No ulcers Extremities: No digital cyanosis No clubbing Pedal pulses intact and symmetrical Radial pulses intact and symmetrical Normal gait and station No calf tenderness Psychiatric: Alert and oriented to person, place and time Appropriate affect Intact judgement Neuro: Muscles Strength symmetrical weakness of both lower extremities Sensation to light touch grossly present throughout Cranial nerves II-XII grossly intact No focal sensory deficits - Labs CBC & Chem 7: 08/05/17 06:37 08/05/17 06:37 Labs: Abnormal Lab Results - Last 24 Hours (Table) 08/02/17 08/05/1708/05/18 Range/Units 15:19 06:37 06:37 WBC 3.6 L (3.8-10.6) k/uL RBC 4.01 L (4.30-5.90) m/uL Hgb 12.0 L (13.0-17.5) gm/dL Hct 36.7 L (39.0-53.0) % Plt Count 101 L (150-450) k/uL Chloride 96 L (98-107) mmol/L Carbon Dioxide 33 H (22-30) mmol/L Glucose 71 L (74-99) mg/dL CSF RBC (0-10) u/L CSF Tot Nucleated Cells (0-5) u/L CSF Total Protein (12-60) mg/dL HIV-1 RNA Quant 2,120,855 H (<40) Copies/mL HIV RNA logcopies/mL Ult 6.33 H (<1.60) HIV-1 RNA (PCR) DETECTED H (Not detected) 08/05/17 Range/Units 15:10 WBC (3.8-10.6) k/uL RBC (4.30-5.90) m/uL Hgb (13.0-17.5) gm/dL Hct (39.0-53.0) % Plt Count (150-450) k/uL Chloride (98-107) mmol/L Carbon Dioxide (22-30) mmol/L Glucose (74-99) mg/dL CSF RBC 460 H (0-10) u/L CSF Tot Nucleated Cells 7 H (0-5) u/L CSF Total Protein 70 H (12-60) mg/dL HIV-1 RNA Quant (<40) Copies/mL HIV RNA logcopies/mL Ult (<1.60) HIV-1 RNA (PCR) (Not detected) Microbiology - Last 24 Hours (Table) 08/01/17 20:05 Blood Culture - Preliminary Blood No Growth after 72 hours Assessment and Plan Assessment: HIV HIV encephalopathy, 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, possible Second degree heart block, Mobitz type I Positive Treponema pallidum Plan: Consults from cardiology, neurology, and ID disease are appreciated He has second degree heart block with Mobitz type I cardiology evaluation is appreciated no further recommendation and workup for now TSH within normal limits and echo is reviewed He has positive Treponema pallidum test, infectious disease on the case Patient underwent MRI of the brain which shows cerebral atrophy, neurological input is appreciated 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 f/u HIV viral load, and CSF results MRI of the lumbar spine: no disc heriation , neurology 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
[2017-08-05] MEDS: MELATONIN 5 MG TABLET PO SCH (23:29)
[2017-08-06] MEDS: PANTOPRAZOLE 40 MG TABLET PO SCH (06:16)
[2017-08-06 06:59] LABS: Anion Gap 12 mmol/L; Basophils % (A) 1 %; Blood Urea Nitrogen 9 mg/dL (9-20); Calcium 9.3 mg/dL (8.4-10.2); Carbon Dioxide 30 mmol/L (22-30); Chloride 101 mmol/L (98-107); Eosinophils # (A) 0.1 k/uL (0-0.7); Eosinophils % (A) 3 %; Glucose 120 mg/dL (74-99); HCT 36.3 % (39.0-53.0); HGB 12.1 gm/dL (13.0-17.5); Lymphocytes # (A) 0.9 k/uL (1.0-4.8); Lymphocytes % (A) 33 %; MCH 30.5 pg (25.0-35.0); MCHC 33.4 g/dL (31.0-37.0); MCV 91.3 fL (80.0-100.0); Monocytes # (A) 0.2 k/uL (0-1.0); Monocytes % (A) 8 %; Neutrophils # (A) 1.4 k/uL (1.3-7.7); Neutrophils % (A) 53 %; Platelet Count 104 k/uL (150-450); Potassium 3.9 mmol/L (3.5-5.1); RBC 3.97 m/uL (4.30-5.90); RDW 13.5 % (11.5-15.5); Sodium 143 mmol/L (137-145); WBC 2.7 k/uL (3.8-10.6)
[2017-08-06 08:01] LABS: Large Platelets Present
[2017-08-06] MEDS: SODIUM CHLORIDE 0.9% 1,000 ML IV SCH ×2 (08:35→20:04)
[2017-08-06] MEDS: NYSTATIN 100,000 UNIT/ML SUSP 500,000 UNIT/5 ML CUP PO SCH ×4 (08:36→22:44)
[2017-08-06 10:04] LABS: VDRL, Qualitative CSF Nonreactive (Nonreactive)
--- NOTE | 2017-08-06 10:46 | CDI ---
Last Revision, March 2017 Documentation Clarification Form Date: 08/06/17 From: Shu Boggs RN Admit Date: 08/05/2017 12:31:00 PM Patient Name: Franck Diggs Visit Number: [id number] ATTENTION: The Clinical Documentation Specialists (CDI) and [facility] Coding Staff appreciate your assistance in clarifying documentation. Please respond to the clarification below the line at the bottom and electronically sign. The CDI & [facility] Coding staff will review the response and follow-up if needed. Please note: Queries are made part of the Legal Health Record. If you have any questions, please contact the author of this message via ITS. Dr. Danny Callaway, Pneumonia was documented in your notes on: 08/01 and 08/02. History/Risk Factors: (include outpatient tx HIV since 2008 with no follow up presents with progressive bilateral lower extremity weakness admission Labs: PLT 106, LYM 0.9, SOD 146, C02 31, ALK PHOS 141, CR KIN 50 admitted for weakness in arms and legs Clinical Indicators: WBC on admission 7.5 X-ray: possible new right upper lobe infiltrate Lung/Breathing assessment: normal Treatment: Antibiotics: IV Cefepime, IV Levofloxacin, IV Vanco monitor labs In order to capture the severity of condition, please clarify if the condition signifies and you are treating for: Aspiration Pneumonia, identify if: Bacterial Pneumonia, specify causal organism (if known) Gram Negative Pneumonia Other bacteria (please specify Viral Pneumonia, specify casual organism (if known) Healthcare Acquired Pneumonia/Pneumonia, unspecified Community acquired Other, please specify Unable to determine Please continue to document in your progress notes, under the line below and discharge summary in order to capture severity of illness and risk of mortality. Include clinical findings that support your diagnosis. pt did not have pneumonia and the infiltrate noticed on chest x-ray resolved with subsequent exams MTDD
--- NOTE | 2017-08-06 13:44 | P.PN ---
Subjective Patient is seen and examined by me at bedside Patient looks his stable from yesterday no new complaints No chest pain, dyspnea, or dizziness no change in pt clinical condition , regarding his mentation or leg weakness no new complaint Objective - Vital Signs Vital signs: Vital Signs Temp 96.7 F L 08/06/17 08:00 Pulse 60 08/06/17 08:00 Resp 18 08/06/17 04:00 BP 125/94 08/06/17 08:00 Pulse Ox 97 08/06/17 11:48 Intake & Output 08/05/17 08/06/17 08/06/17 18:59 06:59 18:59 Intake Total 720 Output Total 1500 Balance 720 -1500 Weight 92.5 kg Intake: Intake, IV Titration 0 Amount Sodium Chloride 0.9% 1, 0 000 ml @ 100 mls/hr IV . Q10H [facility] Rx#:[id number] Oral 720 Output: Urine 1500 Other: Voiding Method Urinal - Exam Constitutional: No acute distress, conversant, pleasant Eyes: Anicteric sclerae, moist conjunctiva, no lid-lag PERRLA ENMT: NC/AT Oropharynx clear, no erythema, exudates Neck: Supple, FROM, no masses, or JVD No carotid bruits No thyromegaly Lungs: Clear to auscultation Clear to percussion Normal respiratory effort, no accessory muscle use Cardiovascular: Heart regular in rate and rhythm, No murmurs, gallops, or rubs No peripheral edema Abdominal: Soft Nontender, no guarding, rebound or rigidity Abdomen moving with respiration Normoactive bowel sounds No hepatomegaly, No splenomegaly No palpable mass No abdominal wall hernia noted Skin: Normal temperature, tone, texture, turgor No induration No subcutaneous nodules No rash, lesions No ulcers Extremities: No digital cyanosis No clubbing Pedal pulses intact and symmetrical Radial pulses intact and symmetrical Normal gait and station No calf tenderness Psychiatric: Alert and oriented to person, place and time Appropriate affect Intact judgement Neuro: Muscles Strength symmetrical weakness of both lower extremities Sensation to light touch grossly present throughout Cranial nerves II-XII grossly intact No focal sensory deficits - Labs CBC & Chem 7: 08/06/17 05:49 08/06/17 05:49 Labs: Abnormal Lab Results - Last 24 Hours (Table) 08/02/17 08/05/17 08/06/17 Range/Units 15:19 15:10 05:49 WBC (3.8-10.6) k/uL RBC (4.30-5.90) m/uL Hgb (13.0-17.5) gm/dL Hct (39.0-53.0) % Plt Count (150-450) k/uL Lymphocytes # (1.0-4.8) k/uL Glucose 120 H (74-99) mg/dL CSF RBC 460 H (0-10) u/L CSF Tot Nucleated Cells 7 H (0-5) u/L CSF Total Protein 70 H (12-60) mg/dL HIV-1 RNA Quant 2,120,855 H (<40) Copies/mL HIV RNA logcopies/mL Ult 6.33 H (<1.60) HIV-1 RNA (PCR) DETECTED H (Not detected) 08/06/17 Range/Units 05:49 WBC 2.7 L (3.8-10.6) k/uL RBC 3.97 L (4.30-5.90) m/uL Hgb 12.1 L (13.0-17.5) gm/dL Hct 36.3 L (39.0-53.0) % Plt Count 104 L (150-450) k/uL Lymphocytes # 0.9 L (1.0-4.8) k/uL Glucose (74-99) mg/dL CSF RBC (0-10) u/L CSF Tot Nucleated Cells (0-5) u/L CSF Total Protein (12-60) mg/dL HIV-1 RNA Quant (<40) Copies/mL HIV RNA logcopies/mL Ult (<1.60) HIV-1 RNA (PCR) (Not detected) Microbiology - Last 24 Hours (Table) 08/01/17 20:05 Blood Culture - Preliminary Blood No Growth after 96 hours Assessment and Plan Assessment: HIV HIV encephalopathy, 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, possible Second degree heart block, Mobitz type I Positive Treponema pallidum Plan: Consults from cardiology, neurology, and ID disease are appreciated He has second degree heart block with Mobitz type I cardiology evaluation is appreciated no further recommendation and workup for now TSH within normal limits and echo is reviewed He has positive Treponema pallidum test, infectious disease on the case Patient underwent MRI of the brain which shows cerebral atrophy, neurological input is appreciated 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
--- NOTE | 2017-08-06 15:33 | US ---
EXAMINATION TYPE: US venous doppler duplex LE BI DATE OF EXAM: 08/06/2017 12:18 PM COMPARISON: NONE CLINICAL HISTORY: r/o DVT. Swelling SIDE PERFORMED: Bilateral TECHNIQUE: The lower extremity deep venous system is examined utilizing real time linear array sonog karen with graded compression, doppler sonography and color-flow sonography. VESSELS IMAGED: External Iliac Vein (EIV) Common Femoral Vein Deep Femoral Vein Greater Saphenous Vein * Femoral Vein Popliteal Vein Small Saphenous Vein * Proximal Calf Veins (* superficial vessels) Right Leg: Negative for DVT Left Leg: Negative for DVT Grayscale, color doppler, spectral doppler imaging performed of the deep veins of the bilateral lower extremities. There is normal flow, compressibility, vascular waveforms. IMPRESSION: No ultrasound evidence for acute DVT in either lower extremity.
--- NOTE | 2017-08-06 17:07 | XR ---
EXAMINATION TYPE: XR chest 1V DATE OF EXAM: 08/06/2017 COMPARISON: 08/01/2017 HISTORY: 27-year-old male follow-up pneumonia TECHNIQUE: Single frontal view of the chest is obtained. FINDINGS: Heart normal size. Aorta and pulmonary vasculature within normal limits. Improved aeration in the rig ht upper lobe. No consolidation or pleural effusion. IMPRESSION: Resolution of previous right upper lobe infiltrate. No acute process seen.
--- NOTE | 2017-08-06 22:02 | P.PN ---
Subjective Progress Note Date: 08/06/17 Principal diagnosis: weakness This is a 27-year-old Afro[place]Citizen [place] male who had a recent hospitalization on 05/2017 at which time he presented with bilateral lower extremity weakness and broad-based gait. Been progressively getting worse for 2 months. He underwent a CT of the brain showed no acute intracranial process or abnormal intracranial enhancement. Cerebral atrophy is advanced for patient's age. 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 T suppressor cells 680, percentage of seat T4 helper 14, absolute CD4 helper 149, CD4/CD8 ratio 0.2 , percentage of CD8 suppressor 65. Patient up signing himself out AGAINST MEDICAL ADVICE. He was to follow-up with Dr. Miranda but did not do so. Patient has history of HIV that was diagnosed in 2008 but he has never sought treatment and has not been on any retro-antiviral medication for this. Patient presented back to [facility] emergency center on August 01 with complaints of bilateral lower extremity pain and muscle aches. Patient complains of feeling pain all over his body. He has an exaggerated response to light palpation. He has difficulty rolling in his bed due to pain. Patient denies having any cough, shortness of breath, fever, chills. He had a chest x- ray that showed possible new right upper lobe infiltrate. Lumbar spine was normal. Patient was given cefepime and Diflucan and Levaquin in the emergency center and continued on vancomycin. She was admitted to the selective care unit and there is a consult in place with cardiology for second degree AV block and with Dr. Bentley for lower extremity weakness. 08/05/2017 patient is doing somewhat better today. 08/05/2017 patient is feeling somewhat better today. He is undergoing a lumbar puncture is an MRI of his spine. He is to be a bit anxious but wanted to go home. He however is denying any new acute difficulties. Leg weakness continues in able to ambulate a few steps. 08/06/2017 patient feeling better but still weak and able to stand and take a few steps only. Objective - Vital Signs Vital signs: Vital Signs Temp 97.8 F 08/06/17 20:00 Pulse 87 08/06/17 20:00 Resp 18 08/06/17 20:00 BP 113/75 08/06/17 20:00 Pulse Ox 96 08/06/17 20:00 Intake & Output 08/06/17 08/06/17 08/07/17 06:59 18:59 06:59 Intake Total 436 Output Total 1500 450 Balance -1500 -14 Weight 92.5 kg Intake: Intake, IV Titration 0 Amount Sodium Chloride 0.9% 1, 0 000 ml @ 100 mls/hr IV . Q10H [facility] Rx#:[id number] Oral 436 Output: Urine 1500 450 Other: Voiding Method Urinal Urinal - Exam Gen: This is a 27-year-old -Citizen Of [place] male. He is in bed and appears to be comfortable. Much less pain and has some anxiety HEENT: Head is atraumatic, normocephalic. Pupils equal, round. Sclerae is anicteric. Conjunctiva pink. Mucous members of the mouth are moist. No thrush noted. NECK: Supple. No JVD. No lymphadenopathy. No thyromegaly. LUNGS: Clear to auscultation. No wheezes or rhonchi. No intercostal retractions. HEART: Regular rate and rhythm. No murmur. ABDOMEN: Soft. Bowel sounds are present. No masses. No tenderness. EXTREMITIES: No pedal edema. No calf tenderness.was able to stand but only for a few seconds. NEUROLOGICAL: Patient is awake, alert and oriented x3. Patient has childlike behavior with no previous diagnosis of intellectual disability. - Labs CBC & Chem 7: 08/06/17 05:49 08/06/17 05:49 Labs: Abnormal Lab Results - Last 24 Hours (Table) 08/06/17 08/06/17 Range/Units 05:49 05:49 WBC 2.7 L (3.8-10.6) k/uL RBC 3.97 L (4.30-5.90) m/uL Hgb 12.1 L (13.0-17.5) gm/dL Hct 36.3 L (39.0-53.0) % Plt Count 104 L (150-450) k/uL Lymphocytes # 0.9 L (1.0-4.8) k/uL Glucose 120 H (74-99) mg/dL Microbiology - Last 24 Hours (Table) 08/01/17 20:05 Blood Culture - Preliminary Blood No Growth after 96 hours Laboratory Results WBC 2.7 k/uL (3.8-10.6) L 08/06/17 05:49 RBC 3.97 m/uL (4.30-5.90) L 08/06/17 05:49 Hgb 12.1 gm/dL (13.0-17.5) L 08/06/17 05:49 Hct 36.3 % (39.0-53.0) L 08/06/17 05:49 MCV 91.3 fL (80.0-100.0) 08/06/17 05:49 MCH 30.5 pg (25.0-35.0) 08/06/17 05:49 MCHC 33.4 g/dL (31.0-37.0) 08/06/17 05:49 RDW 13.5 % (11.5-15.5) 08/06/17 05:49 Plt Count 104 k/uL (150-450) L 08/06/17 05:49 Neutrophils % 53 % 08/06/17 05:49 Lymphocytes % 33 % 08/06/17 05:49 Monocytes % 8 % 08/06/17 05:49 Eosinophils % 3 % 08/06/17 05:49 Basophils % 1 % 08/06/17 05:49 Neutrophils # 1.4 k/uL (1.3-7.7) 08/06/17 05:49 Lymphocytes # 0.9 k/uL (1.0-4.8) L 08/06/17 05:49 Monocytes # 0.2 k/uL (0-1.0) 08/06/17 05:49 Eosinophils # 0.1 k/uL (0-0.7) 08/06/17 05:49 Basophils # 0.0 k/uL (0-0.2) 08/06/17 05:49 Manual Slide Review Performed 08/06/17 05:49 Large Platelets Present 08/06/17 05:49 RBC Morphology Normal 08/06/17 05:49 PT 9.8 sec (9.0-12.0) 08/01/17 20:05 INR 1.0 (<1.2) 08/01/17 20:05 APTT 25.2 sec (22.0-30.0) 08/01/17 20:05 Sodium 143 mmol/L (137-145) 08/06/17 05:49 Potassium 3.9 mmol/L (3.5-5.1) 08/06/17 05:49 Chloride 101 mmol/L (98-107) 08/06/17 05:49 Carbon Dioxide 30 mmol/L (22-30) 08/06/17 05:49 Anion Gap 12 mmol/L 08/06/17 05:49 BUN 9 mg/dL (9-20) 08/06/17 05:49 Creatinine 0.76 mg/dL (0.66-1.25) 08/06/17 05:49 Est GFR (CKD-EPI)AfAm >90 (>60 ml/min/1.73 sqM) 08/06/17 05:49 Est GFR (CKD-EPI)NonAf >90 (>60 ml/min/1.73 sqM) 08/06/17 05:49 Glucose 120 mg/dL (74-99) H 08/06/17 05:49 Plasma Lactic Acid Ignacio 0.9 mmol/L (0.7-2.0) 08/01/17 20:43 Calcium 9.3 mg/dL (8.4-10.2) 08/06/17 05:49 Magnesium 1.9 mg/dL (1.6-2.3) 08/02/17 06:30 Total Bilirubin 0.5 mg/dL (0.2-1.3) 08/01/17 20:05 AST 58 U/L (17-59) 08/01/17 20:05 ALT 54 U/L (21-72) 08/01/17 20:05 Alkaline Phosphatase 141 U/L (38-126) H 08/01/17 20:05 Creatine Kinase 50 U/L (55-170) L 08/01/17 20:05 Total Protein 7.5 g/dL (6.3-8.2) 08/01/17 20:05 Albumin 3.6 g/dL (3.5-5.0) 08/01/17 20:05 TSH 1.320 mIU/L (0.465-4.680) 08/02/17 06:30 Free T4 0.90 ng/dL (0.78-2.19) 08/02/17 06:30 Urine Color Yellow 08/02/17 00:30 Urine Appearance Clear (Clear) 08/02/17 00:30 Urine pH 5.5 (5.0-8.0) 08/02/17 00:30 Ur Specific [place] 1.012 (1.001-1.035) 08/02/17 00:30 Urine Protein Negative (Negative) 08/02/17 00:30 Urine Glucose (UA) Negative (Negative) 08/02/17 00:30 Urine Ketones Negative (Negative) 08/02/17 00:30 Urine Blood Negative (Negative) 08/02/17 00:30 Urine Nitrite Negative (Negative) 08/02/17 00:30 Urine Bilirubin Negative (Negative) 08/02/17 00:30 Urine Urobilinogen <2.0 mg/dL (<2.0) 08/02/17 00:30 Ur Leukocyte Esterase Negative (Negative) 08/02/17 00:30 CSF Tube Number 4 08/05/17 15:10 CSF Volume 2 08/05/17 15:10 CSF Appearance Clear 08/05/17 15:10 CSF Color Colorless 08/05/17 15:10 CSF RBC 460 u/L (0-10) H 08/05/17 15:10 CSF Tot Nucleated Cells 7 u/L (0-5) H 08/05/17 15:10 CSF Crenated Cells 0 % 08/05/17 15:10 CSF Fresh RBCs 100 % 08/05/17 15:10 CSF Glucose 48 mg/dL (40-70) 08/05/17 15:10 CSF Total Protein 70 mg/dL (12-60) H 08/05/17 15:10 CSF VDRL Titer TNP 08/05/17 15:10 CSF VDRL Nonreactive (Nonreactive) 08/05/17 15:10 RPR Non-Reactive 08/02/17 15:19 Treponema pallidum Ab Reactive (Non-Reactive) H 08/02/17 15:19 HIV-1 RNA Quant 2,120,855 Copies/mL (<40) H 08/02/17 15:19 HIV RNA logcopies/mL Ult 6.33 (<1.60) H 08/02/17 15:19 HIV-1 RNA (PCR) DETECTED (Not detected) H 08/02/17 15:19 Microbiology 08/01/17 20:05 Blood Blood Culture - Preliminary No Growth after 96 hours Assessment and Plan (1) HIV (human immunodeficiency virus infection) Current Visit: Yes Status: Acute Code(s): B20 - HUMAN IMMUNODEFICIENCY VIRUS [HIV] DISEASE SNOMED Code(s): 42074957 (2) HIV encephalopathy Narrative/Plan: 27-year-old male who has a known history of HIV and by his low CD4 count Ades has not been under therapy. He now presents with some neurological complaints especially of weakness. The patient also seems to have difficulties with his mentation. Concern at this point and will b.at risk for opportunistic infection as well as lymphoma. Neurology will evaluate and lumbar puncture is being requested ensuring that VDRL of the CSF is also obtained. The patient has a low CD4 count we've asked for a viral load as well as a genotype so we may be able to initiate antiviral therapy. This will be a challenge while he is hospitalized. the patient does agree to treatment for HIV therapy once possible. With his current mental status patient is difficult to evaluate but is able to state on going leg weakness. CSF VDRL is pending 08/06/2017 finds the patient to be somewhat anxious as he has been. Today he was able to stand although he prefilled briefly and take a few steps. The patient's psychosocial situation is gotten very difficult. His mother has gone out of town and has voiced to case management that she does not want him to come live with her. The patient's grandmother is involved in determining if that is an psychiatric evaluation for competence has been requested. We have asked for the grandmother to machine operator picker his HIV medications and bring them here so we may start pending his discharge soon. The patient is somewhat anxious about his discharge to home although certainly that is currently in process of being determined. option for a living situation at discharge. Social workers been consulted trying to determine if he will need some type of placement. Current Visit: Yes Status: Acute Code(s): B20 - HUMAN IMMUNODEFICIENCY VIRUS [HIV] DISEASE; G93.40 - ENCEPHALOPATHY, UNSPECIFIED SNOMED Code(s): 021941802
[2017-08-06] MEDS: TEMAZEPAM 15 MG CAP PO PRN (22:43)
[2017-08-06] MEDS: MELATONIN 5 MG TABLET PO SCH (22:43)
--- NOTE | 2017-08-06 23:53 | P.PN ---
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 Patient underwent MRI of the brain initially on admission which was reviewed and is negative for any evidence of acute stroke or hemorrhage. There was diffuse white matter changes noted. Patient also was able to complete MRI of the lumbar spine today for further evaluation of bilateral leg weakness. MRI results indicate mild degenerative changes in the lumbar spine. There was some enhancing areas involving the sacral nerve root and the left lumbar nerve root which were nonspecific findings. No evidence suspicious for retroperitoneal findings as seen. No evidence for any suspicious nodular enhancement in the lumbar spine. We reviewed the results of the MRI of the lumbar spine today with the patient. He still is somewhat confused and slightly disoriented. This is felt to be secondary to HIV encephalopathy. 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 We will await the final results from the laboratory regarding his spinal fluid assessment. Overall the patient seems to be doing fairly well. We are following the patient closely with Dr. Miranda from infectious disease. We will await his further recommendations. This patient's CSF fluid was analyzed for VDRL. This test did come back negative today. The patient was sent for venous Doppler ultrasound of the legs which came back negative. As noted the patient has a long history of HIV and is never been specifically treated for this condition. Arrangements are being made with his grandmother to start him on treatment for his HIV status. Social work is also been consulted for possible discharge planning. Patient may also require placement if necessary. We will continue close neurological follow-up for the patient. His overall prognosis at this time remains guarded. Objective - Vital Signs Vital signs: Vital Signs Temp 96.7 F L 08/06/17 08:00 Pulse 53 L 08/06/17 12:00 Resp 18 08/06/17 04:00 BP 139/77 08/06/17 12:00 Pulse Ox 99 08/06/17 12:00 Intake & Output 08/05/17 08/06/17 08/06/17 18:59 06:59 18:59 Intake Total 720 0 Output Total 1500 Balance 720 -1500 0 Weight 92.5 kg Intake: Intake, IV Titration 0 0 Amount Sodium Chloride 0.9% 1, 0 0 000 ml @ 100 mls/hr IV . Q10H [facility] Rx#:[id number] Oral 720 Output: Urine 1500 Other: Voiding Method Urinal - Exam physical examination: PHYSICAL EXAMINATION: Patient is resting comfortably in bed. VITAL SIGNS: Blood pressure is [139/77] Heart rate is [53]. Respiration is [18] . Temperature is [97.0]. HEENT: Head is atraumatic, neck is supple, there were no carotid bruits. CHEST: Lungs are clear to auscultation and percussion. CARDIAC: S1, S2 normal rate and rhythm. There is no murmur. ABDOMEN: Soft and nontender. Bowel sounds are present. EXTREMITIES: There is no pedal edema. Peripheral pulses are present. Neurological examination: This patient's neurological examination is unchanged from yesterday. Patient's mental status still slightly inappropriate for his age. This may be related to his HIV encephalopathy. Continues to complain of leg weakness off and on. - Labs CBC & Chem 7: 08/06/17 05:49 08/06/17 05:49 Labs: Abnormal Lab Results - Last 24 Hours (Table) 08/02/17 08/05/17 08/06/17 Range/Units 15:19 15:10 05:49 WBC (3.8-10.6) k/uL RBC (4.30-5.90) m/uL Hgb (13.0-17.5) gm/dL Hct (39.0-53.0) % Plt Count (150-450) k/uL Lymphocytes # (1.0-4.8) k/uL Glucose 120 H (74-99) mg/dL CSF RBC 460 H (0-10) u/L CSF Tot Nucleated Cells 7 H (0-5) u/L CSF Total Protein 70 H (12-60) mg/dL HIV-1 RNA Quant 2,120,855 H (<40) Copies/mL HIV RNA logcopies/mL Ult 6.33 H (<1.60) HIV-1 RNA (PCR) DETECTED H (Not detected) 08/06/17 Range/Units 05:49 WBC 2.7 L (3.8-10.6) k/uL RBC 3.97 L (4.30-5.90) m/uL Hgb 12.1 L (13.0-17.5) gm/dL Hct 36.3 L (39.0-53.0) % Plt Count 104 L (150-450) k/uL Lymphocytes # 0.9 L (1.0-4.8) k/uL Glucose (74-99) mg/dL CSF RBC (0-10) u/L CSF Tot Nucleated Cells (0-5) u/L CSF Total Protein (12-60) mg/dL HIV-1 RNA Quant (<40) Copies/mL HIV RNA logcopies/mL Ult (<1.60) HIV-1 RNA (PCR) (Not detected) Microbiology - Last 24 Hours (Table) 08/01/17 20:05 Blood Culture - Preliminary Blood No Growth after 96 hours Assessment and Plan (1) HIV (human immunodeficiency virus infection) Current Visit: Yes Status: Acute Code(s): B20 - HUMAN IMMUNODEFICIENCY VIRUS [HIV] DISEASE SNOMED Code(s): 48019216 (2) Lower extremity weakness Current Visit: Yes Status: Acute Code(s): R29.898 - OTH SYMPTOMS AND SIGNS INVOLVING THE MUSCULOSKELETAL SYSTEM SNOMED Code(s): 734282846 (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 He has a known history of HIV. He has symptoms and clinical findings suggesting HIV encephalopathy. He was able to complete MRI of the lumbar spine the results are as noted above. He had lumbar puncture performed today and we' re waiting the final spinal fluid results. His spinal fluid analysis for VDRL in the CSF did come back nonreactive. He was sent for a venous Doppler ultrasound of the lower extremities which came back negative for DVT. Patient is to be started on HIV specific medications. Apparently a social work is been involved in trying to arrange for this or him with the help of his grandmother or other means. Patient is not showing any significant change in his neurological examination today. We have reviewed the MRI results today with the patient. There is no evidence of any major disc herniation or signs of significant disc disease to explain his lower extremity weakness. He may have underlying HIV neuropathy which will have to be evaluated in the outpatient clinic. At this time the patient is to continue with our current treatment plans. We're waiting further recommendations from infectious disease regarding his spinal fluid results. We will continue to follow his progress closely during this admission. His overall prognosis remains guarded.
[2017-08-07] MEDS: SODIUM CHLORIDE 0.9% 1,000 ML IV SCH ×2 (05:29→17:52)
[2017-08-07] MEDS: PANTOPRAZOLE 40 MG TABLET PO SCH (06:18)
[2017-08-07 06:26] LABS: Anion Gap 12 mmol/L; Blood Urea Nitrogen 9 mg/dL (9-20); Calcium 9.3 mg/dL (8.4-10.2); Carbon Dioxide 30 mmol/L (22-30); Chloride 104 mmol/L (98-107); Glucose 80 mg/dL (74-99); Potassium 4.7 mmol/L (3.5-5.1); Sodium 146 mmol/L (137-145)
[2017-08-07 06:29] LABS: Anisocytosis Slight; HCT 38.3 % (39.0-53.0); HGB 12.9 gm/dL (13.0-17.5); MCH 31.3 pg (25.0-35.0); MCHC 33.7 g/dL (31.0-37.0); MCV 92.6 fL (80.0-100.0); Mean Platelet Volume 9.2; RBC 4.14 m/uL (4.30-5.90); RDW 16.1 % (11.5-15.5); WBC 3.1 k/uL (3.8-10.6)
[2017-08-07 07:21] LABS: Band Neutrophils % 4 %; Eosinophils # (M) 0.12 k/uL (0-0.7); Lymphocytes # (M) 1.21 k/uL (1.0-4.8); Neutrophils % (M) 40 %; Nucleated Red Blood Cells 0 /100 WBC (0-0); Total Cells Counted 100
[2017-08-07 07:22] LABS: Large Platelets Present
[2017-08-07 07:24] LABS: Platelet Count 96 k/uL (150-450)
[2017-08-07] MEDS: NYSTATIN 100,000 UNIT/ML SUSP 500,000 UNIT/5 ML CUP PO SCH ×4 (08:30→22:48)
--- NOTE | 2017-08-07 12:15 | P.CN ---
Psychiatric Consult - . Consult date: 08/07/17 Consult:: 08/07/17 11:57 Patient was seen for a psych consult regarding altered mental status and possible guardianship. Altered mental status: Patient has been seen by several doctors, including neurologists infectious disease on several occasions, had MRI etc. 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 Cerebral). Possible guardianship: 5 progress notes by sheet indicates patient is alert , oriented to person place and time, appropriate affect and intact judgment. This information does not support guardianship. Patient reported his mother is already his guardian. But he refused to tell me what she is guardian for. Patient refused to give further information. Suggestion: As long as patient is complying with treatment in the hospital and with discharge plans, the question of guardianship does not arise at all. If the guardianship is for family purposes, the family needs to take this matter to probate court. But, he said his mother is his guardian. You may want to find out if the mother is really his guardian before proceeding further for a guardianship. If you still think he needs to be evaluated for guardianship, please specify if it is for money matters, discharge plans, refusal of treatment or AMA request, only after there is a change in his judgment to the worse. The intact judgment implies he is able to decide rationally.
[2017-08-07] MEDS: IBUPROFEN 400 MG TAB PO PRN (14:15)
--- NOTE | 2017-08-07 15:01 | P.PN ---
Subjective Patient is seen and examined by me at bedside Patient looks his stable from yesterday no new complaints No chest pain, dyspnea, or dizziness no change in pt clinical condition , regarding his mentation or leg weakness no new complaint Objective - Vital Signs Vital signs: Vital Signs Temp 97.5 F L 08/07/17 08:00 Pulse 70 08/07/17 08:00 Resp 18 08/07/17 08:00 BP 112/64 08/07/17 08:00 Pulse Ox 98 08/07/17 08:00 Intake & Output 08/06/17 08/07/17 08/07/17 18:59 06:59 18:59 Intake Total 436 1200 120 Output Total 450 1450 Balance -14 -250 120 Weight 92.8 kg Intake: Intake, IV Titration 0 Amount Sodium Chloride 0.9% 1, 0 000 ml @ 100 mls/hr IV . Q10H [facility] Rx#:[id number] Oral 436 1200 120 Output: Urine 450 1450 Other: Voiding Method Urinal Urinal # Voids 1 - Exam Constitutional: No acute distress, conversant, pleasant Eyes: Anicteric sclerae, moist conjunctiva, no lid-lag PERRLA ENMT: NC/AT Oropharynx clear, no erythema, exudates Neck: Supple, FROM, no masses, or JVD No carotid bruits No thyromegaly Lungs: Clear to auscultation Clear to percussion Normal respiratory effort, no accessory muscle use Cardiovascular: Heart regular in rate and rhythm, No murmurs, gallops, or rubs No peripheral edema Abdominal: Soft Nontender, no guarding, rebound or rigidity Abdomen moving with respiration Normoactive bowel sounds No hepatomegaly, No splenomegaly No palpable mass No abdominal wall hernia noted Skin: Normal temperature, tone, texture, turgor No induration No subcutaneous nodules No rash, lesions No ulcers Extremities: No digital cyanosis No clubbing Pedal pulses intact and symmetrical Radial pulses intact and symmetrical Normal gait and station No calf tenderness Psychiatric: Alert and oriented to person, place and time Appropriate affect Intact judgement Neuro: Muscles Strength symmetrical weakness of both lower extremities Sensation to light touch grossly present throughout Cranial nerves II-XII grossly intact No focal sensory deficits - Labs CBC & Chem 7: 08/07/17 05:50 08/07/17 05:50 Labs: Abnormal Lab Results - Last 24 Hours (Table) 08/07/17 08/07/17 Range/Units 05:50 05:50 WBC 3.1 L (3.8-10.6) k/uL RBC 4.14 L (4.30-5.90) m/uL Hgb 12.9 L (13.0-17.5) gm/dL Hct 38.3 L (39.0-53.0) % RDW 16.1 H (11.5-15.5) % Plt Count 96 L (150-450) k/uL Sodium 146 H (137-145) mmol/L Microbiology - Last 24 Hours (Table) 08/01/17 20:05 Blood Culture - Preliminary Blood No Growth after 120 hours Assessment and Plan Assessment: HIV HIV encephalopathy, 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, possible Second degree heart block, Mobitz type I Plan: Consults from cardiology, neurology, and ID disease are appreciated He has second degree heart block with Mobitz type I cardiology evaluation is appreciated no further recommendation and workup for now TSH within normal limits and echo is reviewed Patient underwent MRI of the brain which shows cerebral atrophy, neurological input is appreciated 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 f/u HIV viral load, and CSF results MRI of the lumbar spine: no disc herniation , neurology suspect HIV neuropathy which can be addressed as outpt recheck CXR: resolution of the right upper infiltrate , call psych consult: pt has capacity to ivania medical decision pt is agreeing to take medication Pt/ot: PENDING , ID team input is appreciated , pt is planed to start HIV medication prognosis remains guarded
--- NOTE | 2017-08-07 20:47 | P.PN ---
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 Patient underwent MRI of the brain initially on admission which was reviewed and is negative for any evidence of acute stroke or hemorrhage. There was diffuse white matter changes noted. Patient also was able to complete MRI of the lumbar spine today for further evaluation of bilateral leg weakness. MRI results indicate mild degenerative changes in the lumbar spine. There was some enhancing areas involving the sacral nerve root and the left lumbar nerve root which were nonspecific findings. No evidence suspicious for retroperitoneal findings as seen. No evidence for any suspicious nodular enhancement in the lumbar spine. We reviewed the results of the MRI of the lumbar spine today with the patient. He still is somewhat confused and slightly disoriented. This is felt to be secondary to HIV encephalopathy. 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 We will await the final results from the laboratory regarding his spinal fluid assessment. Overall the patient seems to be doing fairly well. We are following the patient closely with Dr. Miranda from infectious disease. We will await his further recommendations. This patient's CSF fluid was analyzed for VDRL. This test did come back negative today. The patient was sent for venous Doppler ultrasound of the legs which came back negative. As noted the patient has a long history of HIV and is never been specifically treated for this condition. Arrangements are being made with his grandmother to start him on treatment for his HIV status. Social work is also been consulted for possible discharge planning. Patient may also require placement if necessary. The patient was seen by psychiatry today. There recommendations have been noted. We will continue close neurological follow-up for the patient. His overall prognosis at this time remains guarded. Objective - Vital Signs Vital signs: Vital Signs Temp 98.6 F 08/07/17 15:00 Pulse 74 08/07/17 15:00 Resp 16 08/07/17 15:00 BP 114/76 08/07/17 15:00 Pulse Ox 98 08/07/17 15:29 Intake & Output 08/07/17 08/07/17 08/08/17 06:59 18:59 06:59 Intake Total 1200 120 Output Total 1450 Balance -250 120 Weight 92.8 kg Intake: Oral 1200 120 Output: Urine 1450 Other: Voiding Method Urinal Bedside Commode # Voids 1 3 - Exam physical examination: PHYSICAL EXAMINATION: Patient is resting comfortably in bed. VITAL SIGNS: Blood pressure is [129/63] Heart rate is [88]. Respiration is [18] . Temperature is [97.9]. HEENT: Head is atraumatic, neck is supple, there were no carotid bruits. CHEST: Lungs are clear to auscultation and percussion. CARDIAC: S1, S2 normal rate and rhythm. There is no murmur. ABDOMEN: Soft and nontender. Bowel sounds are present. EXTREMITIES: There is no pedal edema. Peripheral pulses are present. Neurological examination: This patient's neurological examination is unchanged from yesterday. Patient's mental status still slightly inappropriate for his age. This may be related to his HIV encephalopathy. Continues to complain of leg weakness off and on. - Labs CBC & Chem 7: 08/07/17 05:50 08/07/17 05:50 Labs: Abnormal Lab Results - Last 24 Hours (Table) 08/07/17 08/07/17 Range/Units 05:50 05:50 WBC 3.1 L (3.8-10.6) k/uL RBC 4.14 L (4.30-5.90) m/uL Hgb 12.9 L (13.0-17.5) gm/dL Hct 38.3 L (39.0-53.0) % RDW 16.1 H (11.5-15.5) % Plt Count 96 L (150-450) k/uL Sodium 146 H (137-145) mmol/L Microbiology - Last 24 Hours (Table) 08/01/17 20:05 Blood Culture - Preliminary Blood No Growth after 120 hours Assessment and Plan (1) HIV (human immunodeficiency virus infection) Current Visit: Yes Status: Acute Code(s): B20 - HUMAN IMMUNODEFICIENCY VIRUS [HIV] DISEASE SNOMED Code(s): 28794684 (2) Lower extremity weakness Current Visit: Yes Status: Acute Code(s): R29.898 - OTH SYMPTOMS AND SIGNS INVOLVING THE MUSCULOSKELETAL SYSTEM SNOMED Code(s): 823931652 (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 He has a known history of HIV. He has symptoms and clinical findings suggesting HIV encephalopathy. He was able to complete MRI of the lumbar spine the results are as noted above. He had lumbar puncture performed today and we' re waiting the final spinal fluid results. His spinal fluid analysis for VDRL in the CSF did come back nonreactive. He was sent for a venous Doppler ultrasound of the lower extremities which came back negative for DVT. Patient is to be started on HIV specific medications. Apparently a social work is been involved in trying to arrange for this or him with the help of his grandmother or other means. Patient is not showing any significant change in his neurological examination today. We have reviewed the MRI results today with the patient. There is no evidence of any major disc herniation or signs of significant disc disease to explain his lower extremity weakness. He may have underlying HIV neuropathy which will have to be evaluated in the outpatient clinic. At this time the patient is to continue with our current treatment plans. We are waiting further recommendations from infectious disease regarding his spinal fluid results. As noted his CSF VDRL was negative. Patient was seen by psychiatry today and the recommendations were noted. We will continue to follow his progress closely during this admission. His overall prognosis remains guarded.
[2017-08-07] MEDS: MELATONIN 5 MG TABLET PO SCH (22:48)
--- NOTE | 2017-08-07 22:54 | P.PN ---
Subjective Progress Note Date: 08/07/17 Principal diagnosis: weakness This is a 27-year-old Afro-[place] male who had a recent hospitalization on 05/2017 at which time he presented with bilateral lower extremity weakness and broad-based gait. Been progressively getting worse for 2 months. He underwent a CT of the brain showed no acute intracranial process or abnormal intracranial enhancement. Cerebral atrophy is advanced for patient's age. 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 T suppressor cells 680, percentage of seat T4 helper 14, absolute CD4 helper 149, CD4/CD8 ratio 0.2 , percentage of CD8 suppressor 65. Patient up signing himself out AGAINST MEDICAL ADVICE. He was to follow-up with Dr. Miranda but did not do so. Patient has history of HIV that was diagnosed in 2008 but he has never sought treatment and has not been on any retro-antiviral medication for this. Patient presented back to [facility] emergency center on August 01 with complaints of bilateral lower extremity pain and muscle aches. Patient complains of feeling pain all over his body. He has an exaggerated response to light palpation. He has difficulty rolling in his bed due to pain. Patient denies having any cough, shortness of breath, fever, chills. He had a chest x- ray that showed possible new right upper lobe infiltrate. Lumbar spine was normal. Patient was given cefepime and Diflucan and Levaquin in the emergency center and continued on vancomycin. She was admitted to the selective care unit and there is a consult in place with cardiology for second degree AV block and with Dr. Bentley for lower extremity weakness. 08/05/2017 patient is doing somewhat better today. 08/05/2017 patient is feeling somewhat better today. He is undergoing a lumbar puncture is an MRI of his spine. He is to be a bit anxious but wanted to go home. He however is denying any new acute difficulties. Leg weakness continues in able to ambulate a few steps. 08/06/2017 patient feeling better but still weak and able to stand and take a few steps only. 08/07/2017 patient feels about the same. Continues to have lower extremity weakness and only able to and related few steps. He has been seen by psychiatry and there is no notation of incompetence. The patient likely will go to extended care to recieve rehab. Unclear rate of improvementonce he begins antiretroviral therapy. The CSF VDRL is negative, no evidence of neurosyphilis at this time. Objective - Vital Signs Vital signs: Vital Signs Temp 98.6 F 08/07/17 15:00 Pulse 74 08/07/17 15:00 Resp 16 08/07/17 15:00 BP 114/76 08/07/17 15:00 Pulse Ox 98 08/07/17 15:29 Intake & Output 08/07/17 08/07/17 08/08/17 06:59 18:59 06:59 Intake Total 1200 120 Output Total 1450 Balance -250 120 Weight 92.8 kg Intake: Oral 1200 120 Output: Urine 1450 Other: Voiding Method Urinal Bedside Commode # Voids 1 3 - Exam Gen: This is a 27-year-old -[place] male. He is in bed and appears to be comfortable. Much less pain and has some anxiety HEENT: Head is atraumatic, normocephalic. Pupils equal, round. Sclerae is anicteric. Conjunctiva pink. Mucous members of the mouth are moist. No thrush noted. NECK: Supple. No JVD. No lymphadenopathy. No thyromegaly. LUNGS: Clear to auscultation. No wheezes or rhonchi. No intercostal retractions. HEART: Regular rate and rhythm. No murmur. ABDOMEN: Soft. Bowel sounds are present. No masses. No tenderness. EXTREMITIES: No pedal edema. No calf tenderness.was able to stand but only for a few seconds. NEUROLOGICAL: Patient is awake, alert and Patient able to answer questions, but has childlike behavior with no previous diagnosis of intellectual disability. - Labs CBC & Chem 7: 08/07/17 05:50 08/07/17 05:50 Labs: Abnormal Lab Results - Last 24 Hours (Table) 08/07/17 08/07/17 Range/Units 05:50 05:50 WBC 3.1 L (3.8-10.6) k/uL RBC 4.14 L (4.30-5.90) m/uL Hgb 12.9 L (13.0-17.5) gm/dL Hct 38.3 L (39.0-53.0) % RDW 16.1 H (11.5-15.5) % Plt Count 96 L (150-450) k/uL Sodium 146 H (137-145) mmol/L Microbiology - Last 24 Hours (Table) 08/01/17 20:05 Blood Culture - Final Blood No Growth after 144 hours Laboratory Results WBC 3.1 k/uL (3.8-10.6) L 08/07/17 05:50 RBC 4.14 m/uL (4.30-5.90) L 08/07/17 05:50 Hgb 12.9 gm/dL (13.0-17.5) L 08/07/17 05:50 Hct 38.3 % (39.0-53.0) L 08/07/17 05:50 MCV 92.6 fL (80.0-100.0) 08/07/17 05:50 MCH 31.3 pg (25.0-35.0) 08/07/17 05:50 MCHC 33.7 g/dL (31.0-37.0) 08/07/17 05:50 RDW 16.1 % (11.5-15.5) H 08/07/17 05:50 Plt Count 96 k/uL (150-450) L 08/07/17 05:50 Neutrophils % 53 % 08/06/17 05:49 Neutrophils % (Manual) 40 % 08/07/17 05:50 Band Neutrophils % 4 % 08/07/17 05:50 Lymphocytes % 33 % 08/06/17 05:49 Lymphocytes % (Manual) 39 % 08/07/17 05:50 Monocytes % 8 % 08/06/17 05:49 Monocytes % (Manual) 13 % 08/07/17 05:50 Eosinophils % 3 % 08/06/17 05:49 Eosinophils % (Manual) 4 % 08/07/17 05:50 Basophils % 1 % 08/06/17 05:49 Neutrophils # 1.4 k/uL (1.3-7.7) 08/06/17 05:49 Neutrophils # (Manual) 1.30 k/uL (1.3-7.7) 08/07/17 05:50 Lymphocytes # 0.9 k/uL (1.0-4.8) L 08/06/17 05:49 Lymphocytes # (Manual) 1.21 k/uL (1.0-4.8) 08/07/17 05:50 Monocytes # 0.2 k/uL (0-1.0) 08/06/17 05:49 Monocytes # (Manual) 0.40 k/uL (0-1.0) 08/07/17 05:50 Eosinophils # 0.1 k/uL (0-0.7) 08/06/17 05:49 Eosinophils # (Manual) 0.12 k/uL (0-0.7) 08/07/17 05:50 Basophils # 0.0 k/uL (0-0.2) 08/06/17 05:49 Nucleated RBCs 0 /100 WBC (0-0) 08/07/17 05:50 Manual Slide Review Performed 08/07/17 05:50 Large Platelets Present 08/07/17 05:50 RBC Morphology Normal 08/06/17 05:49 Anisocytosis Slight 08/07/17 05:50 PT 9.8 sec (9.0-12.0) 08/01/17 20:05 INR 1.0 (<1.2) 08/01/17 20:05 APTT 25.2 sec (22.0-30.0) 08/01/17 20:05 Sodium 146 mmol/L (137-145) H 08/07/17 05:50 Potassium 4.7 mmol/L (3.5-5.1) 08/07/17 05:50 Chloride 104 mmol/L (98-107) 08/07/17 05:50 Carbon Dioxide 30 mmol/L (22-30) 08/07/17 05:50 Anion Gap 12 mmol/L 08/07/17 05:50 BUN 9 mg/dL (9-20) 08/07/17 05:50 Creatinine 0.75 mg/dL (0.66-1.25) 08/07/17 05:50 Est GFR (CKD-EPI)AfAm >90 (>60 ml/min/1.73 sqM) 08/07/17 05:50 Est GFR (CKD-EPI)NonAf >90 (>60 ml/min/1.73 sqM) 08/07/17 05:50 Glucose 80 mg/dL (74-99) 08/07/17 05:50 Plasma Lactic Acid Ignacio 0.9 mmol/L (0.7-2.0) 08/01/17 20:43 Calcium 9.3 mg/dL (8.4-10.2) 08/07/17 05:50 Magnesium 1.9 mg/dL (1.6-2.3) 08/02/17 06:30 Total Bilirubin 0.5 mg/dL (0.2-1.3) 08/01/17 20:05 AST 58 U/L (17-59) 08/01/17 20:05 ALT 54 U/L (21-72) 08/01/17 20:05 Alkaline Phosphatase 141 U/L (38-126) H 08/01/17 20:05 Creatine Kinase 50 U/L (55-170) L 08/01/17 20:05 Total Protein 7.5 g/dL (6.3-8.2) 08/01/17 20:05 Albumin 3.6 g/dL (3.5-5.0) 08/01/17 20:05 TSH 1.320 mIU/L (0.465-4.680) 08/02/17 06:30 Free T4 0.90 ng/dL (0.78-2.19) 08/02/17 06:30 Urine Color Yellow 08/02/17 00:30 Urine Appearance Clear (Clear) 08/02/17 00:30 Urine pH 5.5 (5.0-8.0) 08/02/17 00:30 Ur Specific [place] 1.012 (1.001-1.035) 08/02/17 00:30 Urine Protein Negative (Negative) 08/02/17 00:30 Urine Glucose (UA) Negative (Negative) 08/02/17 00:30 Urine Ketones Negative (Negative) 08/02/17 00:30 Urine Blood Negative (Negative) 08/02/17 00:30 Urine Nitrite Negative (Negative) 08/02/17 00:30 Urine Bilirubin Negative (Negative) 08/02/17 00:30 Urine Urobilinogen <2.0 mg/dL (<2.0) 08/02/17 00:30 Ur Leukocyte Esterase Negative (Negative) 08/02/17 00:30 CSF Tube Number 4 08/05/17 15:10 CSF Volume 2 08/05/17 15:10 CSF Appearance Clear 08/05/17 15:10 CSF Color Colorless 08/05/17 15:10 CSF RBC 460 u/L (0-10) H 08/05/17 15:10 CSF Tot Nucleated Cells 7 u/L (0-5) H 08/05/17 15:10 CSF Crenated Cells 0 % 08/05/17 15:10 CSF Fresh RBCs 100 % 08/05/17 15:10 CSF Glucose 48 mg/dL (40-70) 08/05/17 15:10 CSF Total Protein 70 mg/dL (12-60) H 08/05/17 15:10 CSF VDRL Titer TNP 08/05/17 15:10 CSF VDRL Nonreactive (Nonreactive) 08/05/17 15:10 RPR Non-Reactive 08/02/17 15:19 Treponema pallidum Ab Reactive (Non-Reactive) H 08/02/17 15:19 HIV-1 RNA Quant 2,120,855 Copies/mL (<40) H 08/02/17 15:19 HIV RNA logcopies/mL Ult 6.33 (<1.60) H 08/02/17 15:19 HIV-1 RNA (PCR) DETECTED (Not detected) H 08/02/17 15:19 Microbiology 08/01/17 20:05 Blood Blood Culture - Final No Growth after 144 hours Assessment and Plan (1) HIV (human immunodeficiency virus infection) Current Visit: Yes Status: Acute Code(s): B20 - HUMAN IMMUNODEFICIENCY VIRUS [HIV] DISEASE SNOMED Code(s): 99514414 (2) HIV encephalopathy Narrative/Plan: 27-year-old male who has a known history of HIV and by his low CD4 count Ades has not been under therapy. He now presents with some neurological complaints especially of weakness. The patient also seems to have difficulties with his mentation. Concern at this point and will b.at risk for opportunistic infection as well as lymphoma. Neurology will evaluate and lumbar puncture is being requested ensuring that VDRL of the CSF is also obtained. The patient has a low CD4 count we've asked for a viral load as well as a genotype so we may be able to initiate antiviral therapy. This will be a challenge while he is hospitalized. the patient does agree to treatment for HIV therapy once possible. With his current mental status patient is difficult to evaluate but is able to state on going leg weakness. CSF VDRL is pending 08/06/2017 finds the patient to be somewhat anxious as he has been. Today he was able to stand although he prefilled briefly and take a few steps. The patient's psychosocial situation is gotten very difficult. His mother has gone out of town and has voiced to case management that she does not want him to come live with her. The patient's grandmother is involved in determining if that is an psychiatric evaluation for competence has been requested. We have asked for the grandmother to fruit picker machine operator his HIV medications and bring them here so we may start pending his discharge soon. The patient is somewhat anxious about his discharge to home although certainly that is currently in process of being determined. option for a living situation at discharge. Social workers been consulted trying to determine if he will need some type of placement. 08/07/2017 patient is more restful today. It is related that he is able to stand and take just a few steps. Has significant weakness. Case is discussed with the neurologist. With initiation of antiretroviral therapy should be some improvement of his underlying HIV encephalopathy. The rate of improvement and extent of improvement is difficult to cigar head holer at this time. She'll follow up in the office within 4 weeks of discharge with some follow-up blood work to make sure he is improving and responding to therapy. Current Visit: Yes Status: Acute Code(s): B20 - HUMAN IMMUNODEFICIENCY VIRUS [HIV] DISEASE; G93.40 - ENCEPHALOPATHY, UNSPECIFIED SNOMED Code(s): 178768767
[2017-08-08] MEDS: SODIUM CHLORIDE 0.9% 1,000 ML IV SCH ×3 (05:21→23:02)
[2017-08-08] MEDS: NYSTATIN 100,000 UNIT/ML SUSP 500,000 UNIT/5 ML CUP PO SCH ×4 (08:26→20:33)
[2017-08-08] MEDS: PANTOPRAZOLE 40 MG TABLET PO SCH (08:26)
[2017-08-08] MEDS: IBUPROFEN 400 MG TAB PO PRN (14:33)
--- NOTE | 2017-08-08 18:15 | P.PN ---
Subjective Patient is seen and examined by me at bedside Patient looks his stable from yesterday no new complaints No chest pain, dyspnea, or dizziness no change in pt clinical condition , regarding his mentation or leg weakness no new complaint Objective - Vital Signs Vital signs: Vital Signs Temp 97.8 F 08/08/17 14:50 Pulse 76 08/08/17 14:50 Resp 16 08/08/17 14:50 BP 121/76 08/08/17 14:50 Pulse Ox 96 08/08/17 14:50 Intake & Output 08/07/17 08/08/17 08/08/17 18:59 06:59 18:59 Intake Total 120 1800 Balance 120 1800 Intake: Oral 120 1800 Other: Voiding Method Bedside Commode Bedside Commode # Voids 3 4 2 # Bowel Movements 1 - Exam Constitutional: No acute distress, conversant, pleasant Eyes: Anicteric sclerae, moist conjunctiva, no lid-lag PERRLA ENMT: NC/AT Oropharynx clear, no erythema, exudates Neck: Supple, FROM, no masses, or JVD No carotid bruits No thyromegaly Lungs: Clear to auscultation Clear to percussion Normal respiratory effort, no accessory muscle use Cardiovascular: Heart regular in rate and rhythm, No murmurs, gallops, or rubs No peripheral edema Abdominal: Soft Nontender, no guarding, rebound or rigidity Abdomen moving with respiration Normoactive bowel sounds No hepatomegaly, No splenomegaly No palpable mass No abdominal wall hernia noted Skin: Normal temperature, tone, texture, turgor No induration No subcutaneous nodules No rash, lesions No ulcers Extremities: No digital cyanosis No clubbing Pedal pulses intact and symmetrical Radial pulses intact and symmetrical Normal gait and station No calf tenderness Psychiatric: Alert and oriented to person, place and time Appropriate affect Intact judgement Neuro: Muscles Strength symmetrical weakness of both lower extremities Sensation to light touch grossly present throughout Cranial nerves II-XII grossly intact No focal sensory deficits - Labs CBC & Chem 7: 08/07/17 05:50 08/07/17 05:50 Labs: Microbiology - Last 24 Hours (Table) 08/01/17 20:05 Blood Culture - Final Blood No Growth after 144 hours Assessment and Plan Assessment: HIV HIV encephalopathy, 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, possible Second degree heart block, Mobitz type I Plan: Consults from cardiology, neurology, and ID disease are appreciated He has second degree heart block with Mobitz type I cardiology evaluation is appreciated no further recommendation and workup for now TSH within normal limits and echo is reviewed Patient underwent MRI of the brain which shows cerebral atrophy, neurological input is appreciated 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
--- NOTE | 2017-08-08 18:29 | P.PN ---
Subjective Progress Note Date: 08/08/17 This patient is a 27-year-old -[place] male who is being evaluated for HIV encephalopathy and bilateral lower extremity weakness. Patient underwent MRI of the brain initially on admission which was reviewed and is negative for any evidence of acute stroke or hemorrhage. There was diffuse white matter changes noted. Patient also was able to complete MRI of the lumbar spine today for further evaluation of bilateral leg weakness. MRI results indicate mild degenerative changes in the lumbar spine. There was some minimal enhancing areas involving the sacral nerve root and the left lumbar nerve root which were nonspecific findings. No evidence suspicious for retroperitoneal findings as seen. No evidence for any suspicious nodular enhancement in the lumbar spine. We reviewed the results of the MRI of the lumbar spine today with the patient. He still is somewhat confused and slightly disoriented. This is felt to be secondary to HIV encephalopathy. 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 Overall the patient seems to be doing fairly well. We are following the patient closely with Dr. Miranda from infectious disease. We will await his further recommendations. This patient's CSF fluid was analyzed for VDRL. This test did come back negative yesterday. The patient was sent for venous Doppler ultrasound of the legs which came back negative. As noted the patient has a long history of HIV and is never been specifically treated for this condition. Arrangements are being made with his grandmother to start him on treatment for his HIV status. Social work is also been consulted for possible discharge planning. Patient may also require placement if necessary. The patient was seen by psychiatry today. There recommendations have been noted. We did review the MRI films of the brain today in detail with the radiologist. Although there is no enhancing lesions the deep white matter profuse changes still raises suspicion of possibility of PML. We have discussed this finding today with Dr. Miranda. We suggest the patient may be tested for ROEL virus by PCR. Dr. Miranda will order this testing even though the treatment would not change. Patient requires treatment of his HIV status which is the only form of treatment for PML. Dr. Miranda is also working with the patient's grandmother was very frustrated with her grandson as he has not sought out treatment years ago. The patient was started on specific antiviral treatment yesterday by Dr. Miranda. We will continue close neurological follow-up for the patient. His overall prognosis at this time remains guarded. Objective - Vital Signs Vital signs: Vital Signs Temp 97.8 F 08/08/17 14:50 Pulse 76 08/08/17 14:50 Resp 16 08/08/17 14:50 BP 121/76 08/08/17 14:50 Pulse Ox 96 08/08/17 14:50 Intake & Output 08/07/17 08/08/17 08/08/17 18:59 06:59 18:59 Intake Total 120 1800 Balance 120 1800 Intake: Oral 120 1800 Other: Voiding Method Bedside Commode Bedside Commode # Voids 3 4 2 # Bowel Movements 1 - Exam physical examination: PHYSICAL EXAMINATION: Patient is resting comfortably in bed. VITAL SIGNS: Blood pressure is [121/76] Heart rate is [76]. Respiration is [18] . Temperature is [97.8]. HEENT: Head is atraumatic, neck is supple, there were no carotid bruits. CHEST: Lungs are clear to auscultation and percussion. CARDIAC: S1, S2 normal rate and rhythm. There is no murmur. ABDOMEN: Soft and nontender. Bowel sounds are present. EXTREMITIES: There is no pedal edema. Peripheral pulses are present. Neurological examination: This patient's neurological examination is unchanged from yesterday. Patient's mental status still slightly inappropriate for his age. This may be related to his HIV encephalopathy. Continues to complain of leg weakness off and on. 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 He did not seek any treatment for his HIV condition at that time. He was started on specific HIV therapy only yesterday. He has undergone extensive neuro evaluation including MRI of the brain as well as MRI of the lumbar spine. We did review the MRI of the brain films again today and have suggested that the patient be tested for PML even though MRI is not classic presentation of this condition. We will obtain a ROEL virus laboratory test by PCR which would be helpful in confirmation. This was discussed today with Dr. Miranda. Dr. Miranda will order the PCR test for ROEL virus for this patient. In the meantime he was started on specific antiviral therapy yesterday for his HIV. 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 Would continue with PT OT evaluation for the patient. He is being considered for possible discharge to either home under the care of his grandmother or 2 seek out placement. We will continue to follow with social work for his discharge planning. Case was discussed at length today with Dr. Miranda. He is in full agreement with our current recommendations. We will continue to follow his progress closely during this admission. His overall prognosis at this time remains guarded.
[2017-08-08] MEDS: MELATONIN 5 MG TABLET PO SCH (20:31)
--- NOTE | 2017-08-08 23:30 | P.PN ---
Subjective Progress Note Date: 08/08/17 Principal diagnosis: weakness This is a 27-year-old Afro-Hungarian male who had a recent hospitalization on 05/2017 at which time he presented with bilateral lower extremity weakness and broad-based gait. Been progressively getting worse for 2 months. He underwent a CT of the brain showed no acute intracranial process or abnormal intracranial enhancement. Cerebral atrophy is advanced for patient's age. 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 T suppressor cells 680, percentage of seat T4 helper 14, absolute CD4 helper 149, CD4/CD8 ratio 0.2 , percentage of CD8 suppressor 65. Patient up signing himself out AGAINST MEDICAL ADVICE. He was to follow-up with Dr. Miranda but did not do so. Patient has history of HIV that was diagnosed in 2008 but he has never sought treatment and has not been on any retro-antiviral medication for this. Patient presented back to [facility] emergency center on August 01 with complaints of bilateral lower extremity pain and muscle aches. Patient complains of feeling pain all over his body. He has an exaggerated response to light palpation. He has difficulty rolling in his bed due to pain. Patient denies having any cough, shortness of breath, fever, chills. He had a chest x- ray that showed possible new right upper lobe infiltrate. Lumbar spine was normal. Patient was given cefepime and Diflucan and Levaquin in the emergency center and continued on vancomycin. She was admitted to the selective care unit and there is a consult in place with cardiology for second degree AV block and with Dr. Bentley for lower extremity weakness. 08/05/2017 patient is doing somewhat better today. 08/05/2017 patient is feeling somewhat better today. He is undergoing a lumbar puncture is an MRI of his spine. He is to be a bit anxious but wanted to go home. He however is denying any new acute difficulties. Leg weakness continues in able to ambulate a few steps. 08/06/2017 patient feeling better but still weak and able to stand and take a few steps only. 08/07/2017 patient feels about the same. Continues to have lower extremity weakness and only able to and related few steps. He has been seen by psychiatry and there is no notation of incompetence. The patient likely will go to extended care to recieve rehab. Unclear rate of improvement once he begins antiretroviral therapy. The CSF VDRL is negative, no evidence of neurosyphilis at this time. 08/08/2017 patient is sitting up eating food that his grandmother has brought. The social situation remains difficult in that he does not have a specific location to be able to go to, he had been living with his mother but she appears to not wanting to live with her at this time. Likely will go to rehab. The case was again discussed with the neurologist. Objective - Vital Signs Vital signs: Vital Signs Temp 97.8 F 08/08/17 14:50 Pulse 76 08/08/17 14:50 Resp 16 08/08/17 14:50 BP 121/76 08/08/17 14:50 Pulse Ox 96 08/08/17 14:50 Intake & Output 08/08/17 08/08/17 08/09/17 06:59 18:59 06:59 Intake Total 1800 Balance 1800 Intake: Oral 1800 Other: Voiding Method Bedside Commode # Voids 4 2 # Bowel Movements 1 - Exam Gen: This is a 27-year-old -Hungarian male. He is in bed and appears to be comfortable. Much less pain and has some anxiety HEENT: Head is atraumatic, normocephalic. Pupils equal, round. Sclerae is anicteric. Conjunctiva pink. Mucous members of the mouth are moist. No thrush noted. NECK: Supple. No JVD. No lymphadenopathy. No thyromegaly. LUNGS: Clear to auscultation. No wheezes or rhonchi. No intercostal retractions. HEART: Regular rate and rhythm. No murmur. ABDOMEN: Soft. Bowel sounds are present. No masses. No tenderness. EXTREMITIES: No pedal edema. No calf tenderness.was able to stand but only for a few seconds. NEUROLOGICAL: Patient is awake, alert and Patient able to answer questions, but has childlike behavior with no previous diagnosis of intellectual disability. - Labs CBC & Chem 7: 08/07/17 05:50 08/07/17 05:50 Labs: Microbiology - Last 24 Hours (Table) 08/01/17 20:05 Blood Culture - Final Blood No Growth after 144 hours Laboratory Results WBC 3.1 k/uL (3.8-10.6) L 08/07/17 05:50 RBC 4.14 m/uL (4.30-5.90) L 08/07/17 05:50 Hgb 12.9 gm/dL (13.0-17.5) L 08/07/17 05:50 Hct 38.3 % (39.0-53.0) L 08/07/17 05:50 MCV 92.6 fL (80.0-100.0) 08/07/17 05:50 MCH 31.3 pg (25.0-35.0) 08/07/17 05:50 MCHC 33.7 g/dL (31.0-37.0) 08/07/17 05:50 RDW 16.1 % (11.5-15.5) H 08/07/17 05:50 Plt Count 96 k/uL (150-450) L 08/07/17 05:50 Neutrophils % 53 % 08/06/17 05:49 Neutrophils % (Manual) 40 % 08/07/17 05:50 Band Neutrophils % 4 % 08/07/17 05:50 Lymphocytes % 33 % 08/06/17 05:49 Lymphocytes % (Manual) 39 % 08/07/17 05:50 Monocytes % 8 % 08/06/17 05:49 Monocytes % (Manual) 13 % 08/07/17 05:50 Eosinophils % 3 % 08/06/17 05:49 Eosinophils % (Manual) 4 % 08/07/17 05:50 Basophils % 1 % 08/06/17 05:49 Neutrophils # 1.4 k/uL (1.3-7.7) 08/06/17 05:49 Neutrophils # (Manual) 1.30 k/uL (1.3-7.7) 08/07/17 05:50 Lymphocytes # 0.9 k/uL (1.0-4.8) L 08/06/17 05:49 Lymphocytes # (Manual) 1.21 k/uL (1.0-4.8) 08/07/17 05:50 Monocytes # 0.2 k/uL (0-1.0) 08/06/17 05:49 Monocytes # (Manual) 0.40 k/uL (0-1.0) 08/07/17 05:50 Eosinophils # 0.1 k/uL (0-0.7) 08/06/17 05:49 Eosinophils # (Manual) 0.12 k/uL (0-0.7) 08/07/17 05:50 Basophils # 0.0 k/uL (0-0.2) 08/06/17 05:49 Nucleated RBCs 0 /100 WBC (0-0) 08/07/17 05:50 Manual Slide Review Performed 08/07/17 05:50 Large Platelets Present 08/07/17 05:50 RBC Morphology Normal 08/06/17 05:49 Anisocytosis Slight 08/07/17 05:50 PT 9.8 sec (9.0-12.0) 08/01/17 20:05 INR 1.0 (<1.2) 08/01/17 20:05 APTT 25.2 sec (22.0-30.0) 08/01/17 20:05 Sodium 146 mmol/L (137-145) H 08/07/17 05:50 Potassium 4.7 mmol/L (3.5-5.1) 08/07/17 05:50 Chloride 104 mmol/L (98-107) 08/07/17 05:50 Carbon Dioxide 30 mmol/L (22-30) 08/07/17 05:50 Anion Gap 12 mmol/L 08/07/17 05:50 BUN 9 mg/dL (9-20) 08/07/17 05:50 Creatinine 0.75 mg/dL (0.66-1.25) 08/07/17 05:50 Est GFR (CKD-EPI)AfAm >90 (>60 ml/min/1.73 sqM) 08/07/17 05:50 Est GFR (CKD-EPI)NonAf >90 (>60 ml/min/1.73 sqM) 08/07/17 05:50 Glucose 80 mg/dL (74-99) 08/07/17 05:50 Plasma Lactic Acid Ignacio 0.9 mmol/L (0.7-2.0) 08/01/17 20:43 Calcium 9.3 mg/dL (8.4-10.2) 08/07/17 05:50 Magnesium 1.9 mg/dL (1.6-2.3) 08/02/17 06:30 Total Bilirubin 0.5 mg/dL (0.2-1.3) 08/01/17 20:05 AST 58 U/L (17-59) 08/01/17 20:05 ALT 54 U/L (21-72) 08/01/17 20:05 Alkaline Phosphatase 141 U/L (38-126) H 08/01/17 20:05 Creatine Kinase 50 U/L (55-170) L 08/01/17 20:05 Total Protein 7.5 g/dL (6.3-8.2) 08/01/17 20:05 Albumin 3.6 g/dL (3.5-5.0) 08/01/17 20:05 TSH 1.320 mIU/L (0.465-4.680) 08/02/17 06:30 Free T4 0.90 ng/dL (0.78-2.19) 08/02/17 06:30 Urine Color Yellow 08/02/17 00:30 Urine Appearance Clear (Clear) 08/02/17 00:30 Urine pH 5.5 (5.0-8.0) 08/02/17 00:30 Ur Specific [place] 1.012 (1.001-1.035) 08/02/17 00:30 Urine Protein Negative (Negative) 08/02/17 00:30 Urine Glucose (UA) Negative (Negative) 08/02/17 00:30 Urine Ketones Negative (Negative) 08/02/17 00:30 Urine Blood Negative (Negative) 08/02/17 00:30 Urine Nitrite Negative (Negative) 08/02/17 00:30 Urine Bilirubin Negative (Negative) 08/02/17 00:30 Urine Urobilinogen <2.0 mg/dL (<2.0) 08/02/17 00:30 Ur Leukocyte Esterase Negative (Negative) 08/02/17 00:30 CSF Tube Number 4 08/05/17 15:10 CSF Volume 2 08/05/17 15:10 CSF Appearance Clear 08/05/17 15:10 CSF Color Colorless 08/05/17 15:10 CSF RBC 460 u/L (0-10) H 08/05/17 15:10 CSF Tot Nucleated Cells 7 u/L (0-5) H 08/05/17 15:10 CSF Crenated Cells 0 % 08/05/17 15:10 CSF Fresh RBCs 100 % 08/05/17 15:10 CSF Glucose 48 mg/dL (40-70) 08/05/17 15:10 CSF Total Protein 70 mg/dL (12-60) H 08/05/17 15:10 CSF VDRL Titer TNP 08/05/17 15:10 CSF VDRL Nonreactive (Nonreactive) 08/05/17 15:10 RPR Non-Reactive 08/02/17 15:19 Treponema pallidum Ab Reactive (Non-Reactive) H 08/02/17 15:19 HIV-1 RNA Quant 2,120,855 Copies/mL (<40) H 08/02/17 15:19 HIV RNA logcopies/mL Ult 6.33 (<1.60) H 08/02/17 15:19 HIV-1 RNA (PCR) DETECTED (Not detected) H 08/02/17 15:19 Microbiology 08/01/17 20:05 Blood Blood Culture - Final No Growth after 144 hours Assessment and Plan (1) HIV (human immunodeficiency virus infection) Current Visit: Yes Status: Acute Code(s): B20 - HUMAN IMMUNODEFICIENCY VIRUS [HIV] DISEASE SNOMED Code(s): 16121043 (2) HIV encephalopathy Narrative/Plan: 27-year-old male who has a known history of HIV and by his low CD4 count Ades has not been under therapy. He now presents with some neurological complaints especially of weakness. The patient also seems to have difficulties with his mentation. Concern at this point and will b.at risk for opportunistic infection as well as lymphoma. Neurology will evaluate and lumbar puncture is being requested ensuring that VDRL of the CSF is also obtained. The patient has a low CD4 count we've asked for a viral load as well as a genotype so we may be able to initiate antiviral therapy. This will be a challenge while he is hospitalized. the patient does agree to treatment for HIV therapy once possible. With his current mental status patient is difficult to evaluate but is able to state on going leg weakness. CSF VDRL is pending 08/06/2017 finds the patient to be somewhat anxious as he has been. Today he was able to stand although he prefilled briefly and take a few steps. The patient's psychosocial situation is gotten very difficult. His mother has gone out of town and has voiced to case management that she does not want him to come live with her. The patient's grandmother is involved in determining if that is an psychiatric evaluation for competence has been requested. We have asked for the grandmother to lease picker his HIV medications and bring them here so we may start pending his discharge soon. The patient is somewhat anxious about his discharge to home although certainly that is currently in process of being determined. option for a living situation at discharge. Social workers been consulted trying to determine if he will need some type of placement. 08/07/2017 patient is more restful today. It is related that he is able to stand and take just a few steps. Has significant weakness. Case is discussed with the neurologist. With initiation of antiretroviral therapy should be some improvement of his underlying HIV encephalopathy. The rate of improvement and extent of improvement is difficult to executive sales manager at this time. will follow up in the office within 4 weeks of discharge with some follow-up blood work to make sure he is improving and responding to therapy. 08/08/2017 patient is without acute new changes. Eating some food his grandmother brought him without difficulties. Currently working towards placement to receive his therapy to try to improve his strength from his underlying HIV encephalopathy and possible spinal cord involvement. We'll request ROEL virus testing upon discussion with the neurologist. Current Visit: Yes Status: Acute Code(s): B20 - HUMAN IMMUNODEFICIENCY VIRUS [HIV] DISEASE; G93.40 - ENCEPHALOPATHY, UNSPECIFIED SNOMED Code(s): 735653717
[2017-08-09] MEDS: SODIUM CHLORIDE 0.9% 1,000 ML IV SCH ×2 (08:00→13:12)
[2017-08-09] MEDS: NYSTATIN 100,000 UNIT/ML SUSP 500,000 UNIT/5 ML CUP PO SCH ×4 (08:01→20:41)
[2017-08-09] MEDS: PANTOPRAZOLE 40 MG TABLET PO SCH (08:01)
[2017-08-09] MEDS: ACETAMINOPHEN TAB 325 MG TAB PO PRN (17:41)
--- NOTE | 2017-08-09 20:00 | P.PN ---
Subjective Progress Note Date: 08/09/17 This patient is a 27-year-old -[place]in[place] male who is being evaluated for HIV encephalopathy and bilateral lower extremity weakness. Patient underwent MRI of the brain initially on admission which was reviewed and is negative for any evidence of acute stroke or hemorrhage. There was diffuse white matter changes noted. Patient also was able to complete MRI of the lumbar spine today for further evaluation of bilateral leg weakness. MRI results indicate mild degenerative changes in the lumbar spine. There was some minimal enhancing areas involving the sacral nerve root and the left lumbar nerve root which were nonspecific findings. No evidence suspicious for retroperitoneal findings as seen. No evidence for any suspicious nodular enhancement in the lumbar spine. We reviewed the results of the MRI of the lumbar spine today with the patient. He still is somewhat confused and slightly disoriented. This is felt to be secondary to HIV encephalopathy. 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 Overall the patient seems to be doing fairly well. We are following the patient closely with Dr. Miranda from infectious disease. We will await his further recommendations. This patient's CSF fluid was analyzed for VDRL. This test did come back negative yesterday. The patient was sent for venous Doppler ultrasound of the legs which came back negative. As noted the patient has a long history of HIV and is never been specifically treated for this condition. Arrangements are being made with his grandmother to start him on treatment for his HIV status. Social work is also been consulted for possible discharge planning. Patient may also require placement if necessary. The patient was seen by psychiatry today. There recommendations have been noted. We did review the MRI films of the brain today in detail with the radiologist. Although there is no enhancing lesions the deep white matter profuse changes still raises suspicion of possibility of PML. We have discussed this finding today with Dr. Miranda. We suggest the patient may be tested for ROEL virus by PCR. Dr. Miranda will order this testing even though the treatment would not change. Patient requires treatment of his HIV status which is the only form of treatment for PML. Dr. Miranda is also working with the patient's grandmother was very frustrated with her grandson as he has not sought out treatment years ago. The patient was started on specific antiviral treatment yesterday by Dr. Miranda. We will continue close neurological follow-up for the patient. The patient was able to ambulate with the use of his walker today in his room. Would consider subacute rehab placement for this patient early next week. His overall prognosis at this time remains guarded. Objective - Vital Signs Vital signs: Vital Signs Temp 97.1 F L 08/09/17 14:44 Pulse 67 08/09/17 14:44 Resp 16 08/09/17 16:00 BP 105/64 08/09/17 14:44 Pulse Ox 96 08/09/17 14:44 Intake & Output 08/08/17 08/09/17 08/09/17 18:59 06:59 18:59 Output Total 0 Balance 0 Weight 92.8 kg Output: Stool 0 Other: Voiding Method Bedside Commode Bedside Commode Incontinent Incontinent # Voids 2 4 4 # Bowel Movements 0 - Exam physical examination: PHYSICAL EXAMINATION: Patient is resting comfortably in bed. VITAL SIGNS: Blood pressure is [105/64] Heart rate is [67]. Respiration is [16] . Temperature is [97.1]. HEENT: Head is atraumatic, neck is supple, there were no carotid bruits. CHEST: Lungs are clear to auscultation and percussion. CARDIAC: S1, S2 normal rate and rhythm. There is no murmur. ABDOMEN: Soft and nontender. Bowel sounds are present. EXTREMITIES: There is no pedal edema. Peripheral pulses are present. Neurological examination: This patient's neurological examination is unchanged from yesterday. Patient's mental status still slightly inappropriate for his age. This may be related to his HIV encephalopathy. Continues to complain of leg weakness off and on. 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 Patient is being followed closely by Dr. Miranda from infectious disease. He was initially diagnosed with his HIV in 2008 but is not been treated for this condition over the years. He was just started on retroviral therapy by Dr. Miranda yesterday. He will require long-term treatment to see if this affects his overall HIV status. As noted yesterday he is also being considered for possibility of PML. His spinal fluid is been sent for ROEL virus analysis. This may take weeks to return from the laboratory. We will continue working with him in terms of his HIV encephalopathy and leg weakness. He has been able to ambulate today in his room with the use of his walker. We will continue close neurological follow-up for the patient during this admission. We have recommended that he be considered for possible subacute rehab placement early next week. His overall prognosis at this time remains very guarded.
[2017-08-09] MEDS: MELATONIN 5 MG TABLET PO SCH (20:41)
--- NOTE | 2017-08-10 00:20 | P.PN ---
Subjective Progress Note Date: 08/09/17 Objective - Vital Signs Vital signs: Vital Signs Temp 99.0 F 08/09/17 22:51 Pulse 62 08/09/17 22:51 Resp 16 08/09/17 22:51 BP 133/76 08/09/17 22:51 Pulse Ox 97 08/09/17 22:51 Intake & Output 08/09/17 08/09/17 08/10/17 06:59 18:59 06:59 Output Total 0 Balance 0 Weight 92.8 kg Output: Stool 0 Other: Voiding Method Bedside Commode Bedside Commode Incontinent Incontinent Incontinent # Voids 4 4 3 # Bowel Movements 0 0 - Exam Gen: This is a 27-year-old -[place] male. He is in bed and appears to be comfortable. Much less pain and has some anxiety HEENT: Head is atraumatic, normocephalic. Pupils equal, round. Sclerae is anicteric. Conjunctiva pink. Mucous members of the mouth are moist. No thrush noted. NECK: Supple. No JVD. No lymphadenopathy. No thyromegaly. LUNGS: Clear to auscultation. No wheezes or rhonchi. No intercostal retractions. HEART: Regular rate and rhythm. No murmur. ABDOMEN: Soft. Bowel sounds are present. No masses. No tenderness. EXTREMITIES: No pedal edema. No calf tenderness.was able to stand but only for a few seconds. NEUROLOGICAL: Patient is awake, alert and Patient able to answer questions, but has childlike behavior with no previous diagnosis of intellectual disability. - Labs CBC & Chem 7: 08/07/17 05:50 08/07/17 05:50 Labs: Laboratory Results WBC 3.1 k/uL (3.8-10.6) L 08/07/17 05:50 RBC 4.14 m/uL (4.30-5.90) L 08/07/17 05:50 Hgb 12.9 gm/dL (13.0-17.5) L 08/07/17 05:50 Hct 38.3 % (39.0-53.0) L 08/07/17 05:50 MCV 92.6 fL (80.0-100.0) 08/07/17 05:50 MCH 31.3 pg (25.0-35.0) 08/07/17 05:50 MCHC 33.7 g/dL (31.0-37.0) 08/07/17 05:50 RDW 16.1 % (11.5-15.5) H 08/07/17 05:50 Plt Count 96 k/uL (150-450) L 08/07/17 05:50 Neutrophils % 53 % 08/06/17 05:49 Neutrophils % (Manual) 40 % 08/07/17 05:50 Band Neutrophils % 4 % 08/07/17 05:50 Lymphocytes % 33 % 08/06/17 05:49 Lymphocytes % (Manual) 39 % 08/07/17 05:50 Monocytes % 8 % 08/06/17 05:49 Monocytes % (Manual) 13 % 08/07/17 05:50 Eosinophils % 3 % 08/06/17 05:49 Eosinophils % (Manual) 4 % 08/07/17 05:50 Basophils % 1 % 08/06/17 05:49 Neutrophils # 1.4 k/uL (1.3-7.7) 08/06/17 05:49 Neutrophils # (Manual) 1.30 k/uL (1.3-7.7) 08/07/17 05:50 Lymphocytes # 0.9 k/uL (1.0-4.8) L 08/06/17 05:49 Lymphocytes # (Manual) 1.21 k/uL (1.0-4.8) 08/07/17 05:50 Monocytes # 0.2 k/uL (0-1.0) 08/06/17 05:49 Monocytes # (Manual) 0.40 k/uL (0-1.0) 08/07/17 05:50 Eosinophils # 0.1 k/uL (0-0.7) 08/06/17 05:49 Eosinophils # (Manual) 0.12 k/uL (0-0.7) 08/07/17 05:50 Basophils # 0.0 k/uL (0-0.2) 08/06/17 05:49 Nucleated RBCs 0 /100 WBC (0-0) 08/07/17 05:50 Manual Slide Review Performed 08/07/17 05:50 Large Platelets Present 08/07/17 05:50 RBC Morphology Normal 08/06/17 05:49 Anisocytosis Slight 08/07/17 05:50 PT 9.8 sec (9.0-12.0) 08/01/17 20:05 INR 1.0 (<1.2) 08/01/17 20:05 APTT 25.2 sec (22.0-30.0) 08/01/17 20:05 Sodium 146 mmol/L (137-145) H 08/07/17 05:50 Potassium 4.7 mmol/L (3.5-5.1) 08/07/17 05:50 Chloride 104 mmol/L (98-107) 08/07/17 05:50 Carbon Dioxide 30 mmol/L (22-30) 08/07/17 05:50 Anion Gap 12 mmol/L 08/07/17 05:50 BUN 9 mg/dL (9-20) 08/07/17 05:50 Creatinine 0.75 mg/dL (0.66-1.25) 08/07/17 05:50 Est GFR (CKD-EPI)AfAm >90 (>60 ml/min/1.73 sqM) 08/07/17 05:50 Est GFR (CKD-EPI)NonAf >90 (>60 ml/min/1.73 sqM) 08/07/17 05:50 Glucose 80 mg/dL (74-99) 08/07/17 05:50 Plasma Lactic Acid Ignacio 0.9 mmol/L (0.7-2.0) 08/01/17 20:43 Calcium 9.3 mg/dL (8.4-10.2) 08/07/17 05:50 Magnesium 1.9 mg/dL (1.6-2.3) 08/02/17 06:30 Total Bilirubin 0.5 mg/dL (0.2-1.3) 08/01/17 20:05 AST 58 U/L (17-59) 08/01/17 20:05 ALT 54 U/L (21-72) 08/01/17 20:05 Alkaline Phosphatase 141 U/L (38-126) H 08/01/17 20:05 Creatine Kinase 50 U/L (55-170) L 08/01/17 20:05 Total Protein 7.5 g/dL (6.3-8.2) 08/01/17 20:05 Albumin 3.6 g/dL (3.5-5.0) 08/01/17 20:05 TSH 1.320 mIU/L (0.465-4.680) 08/02/17 06:30 Free T4 0.90 ng/dL (0.78-2.19) 08/02/17 06:30 Urine Color Yellow 08/02/17 00:30 Urine Appearance Clear (Clear) 08/02/17 00:30 Urine pH 5.5 (5.0-8.0) 08/02/17 00:30 Ur Specific [place] 1.012 (1.001-1.035) 08/02/17 00:30 Urine Protein Negative (Negative) 08/02/17 00:30 Urine Glucose (UA) Negative (Negative) 08/02/17 00:30 Urine Ketones Negative (Negative) 08/02/17 00:30 Urine Blood Negative (Negative) 08/02/17 00:30 Urine Nitrite Negative (Negative) 08/02/17 00:30 Urine Bilirubin Negative (Negative) 08/02/17 00:30 Urine Urobilinogen <2.0 mg/dL (<2.0) 08/02/17 00:30 Ur Leukocyte Esterase Negative (Negative) 08/02/17 00:30 CSF Tube Number 4 08/05/17 15:10 CSF Volume 2 08/05/17 15:10 CSF Appearance Clear 08/05/17 15:10 CSF Color Colorless 08/05/17 15:10 CSF RBC 460 u/L (0-10) H 08/05/17 15:10 CSF Tot Nucleated Cells 7 u/L (0-5) H 08/05/17 15:10 CSF Crenated Cells 0 % 08/05/17 15:10 CSF Fresh RBCs 100 % 08/05/17 15:10 CSF Glucose 48 mg/dL (40-70) 08/05/17 15:10 CSF Total Protein 70 mg/dL (12-60) H 08/05/17 15:10 CSF VDRL Titer TNP 08/05/17 15:10 CSF VDRL Nonreactive (Nonreactive) 08/05/17 15:10 RPR Non-Reactive 08/02/17 15:19 Treponema pallidum Ab Reactive (Non-Reactive) H 08/02/17 15:19 HIV-1 RNA Quant 2,120,855 Copies/mL (<40) H 08/02/17 15:19 HIV RNA logcopies/mL Ult 6.33 (<1.60) H 08/02/17 15:19 HIV-1 RNA (PCR) DETECTED (Not detected) H 08/02/17 15:19 Microbiology 08/01/17 20:05 Blood Blood Culture - Final No Growth after 144 hours Assessment and Plan (1) HIV (human immunodeficiency virus infection) Current Visit: Yes Status: Acute Code(s): B20 - HUMAN IMMUNODEFICIENCY VIRUS [HIV] DISEASE SNOMED Code(s): 00502715 (2) HIV encephalopathy Narrative/Plan: 27-year-old male who has a known history of HIV and by his low CD4 count Ades has not been under therapy. He now presents with some neurological complaints especially of weakness. The patient also seems to have difficulties with his mentation. Concern at this point and will b.at risk for opportunistic infection as well as lymphoma. Neurology will evaluate and lumbar puncture is being requested ensuring that VDRL of the CSF is also obtained. The patient has a low CD4 count we've asked for a viral load as well as a genotype so we may be able to initiate antiviral therapy. This will be a challenge while he is hospitalized. the patient does agree to treatment for HIV therapy once possible. With his current mental status patient is difficult to evaluate but is able to state on going leg weakness. CSF VDRL is pending 08/06/2017 finds the patient to be somewhat anxious as he has been. Today he was able to stand although he prefilled briefly and take a few steps. The patient's psychosocial situation is gotten very difficult. His mother has gone out of town and has voiced to case management that she does not want him to come live with her. The patient's grandmother is involved in determining if that is an psychiatric evaluation for competence has been requested. We have asked for the grandmother to vegetable picker his HIV medications and bring them here so we may start pending his discharge soon. The patient is somewhat anxious about his discharge to home although certainly that is currently in process of being determined. option for a living situation at discharge. Social workers been consulted trying to determine if he will need some type of placement. 08/07/2017 patient is more restful today. It is related that he is able to stand and take just a few steps. Has significant weakness. Case is discussed with the neurologist. With initiation of antiretroviral therapy should be some improvement of his underlying HIV encephalopathy. The rate of improvement and extent of improvement is difficult to environmental health and safety leader at this time. will follow up in the office within 4 weeks of discharge with some follow-up blood work to make sure he is improving and responding to therapy. 08/08/2017 patient is without acute new changes. Eating some food his grandmother brought him without difficulties. Currently working towards placement to receive his therapy to try to improve his strength from his underlying HIV encephalopathy and possible spinal cord involvement. We'll request ROEL virus testing upon discussion with the neurologist. 08/09/2017 patient without acute changes, He however is eating a bit better today.no other new acute complaints. Testing is pending and is being treated for HIV encephalopathy with anti-retroviral therapy and Will go to rehab after discharge Current Visit: Yes Status: Acute Code(s): B20 - HUMAN IMMUNODEFICIENCY VIRUS [HIV] DISEASE; G93.40 - ENCEPHALOPATHY, UNSPECIFIED SNOMED Code(s): 911811148
[2017-08-10] MEDS: SODIUM CHLORIDE 0.9% 1,000 ML IV SCH ×2 (05:27→15:40)
[2017-08-10] MEDS: PANTOPRAZOLE 40 MG TABLET PO SCH (08:48)
[2017-08-10] MEDS: NYSTATIN 100,000 UNIT/ML SUSP 500,000 UNIT/5 ML CUP PO SCH ×5 (08:49→20:25)
[2017-08-10] MEDS: IBUPROFEN 400 MG TAB PO PRN ×2 (09:03→17:47)
[2017-08-10] MEDS: ACETAMINOPHEN TAB 325 MG TAB PO PRN ×2 (09:04→17:48)
[2017-08-10] MEDS: POLYETHYLENE GLYCOL 3350 17 GM POWD.PACK PO PRN (09:19)
--- NOTE | 2017-08-10 16:31 | P.PN ---
Subjective Progress Note Date: 08/10/17 This patient is a 27-year-old -Citizen Of [place] male who is being evaluated for HIV encephalopathy and bilateral lower extremity weakness. Patient underwent MRI of the brain initially on admission which was reviewed and is negative for any evidence of acute stroke or hemorrhage. There was diffuse white matter changes noted. Patient also was able to complete MRI of the lumbar spine today for further evaluation of bilateral leg weakness. MRI results indicate mild degenerative changes in the lumbar spine. There was some minimal enhancing areas involving the sacral nerve root and the left lumbar nerve root which were nonspecific findings. No evidence suspicious for retroperitoneal findings as seen. No evidence for any suspicious nodular enhancement in the lumbar spine. We reviewed the results of the MRI of the lumbar spine today with the patient. He still is somewhat confused and slightly disoriented. This is felt to be secondary to HIV encephalopathy. 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 Overall the patient seems to be doing fairly well. We are following the patient closely with Dr. Miranda from infectious disease. We will await his further recommendations. This patient's CSF fluid was analyzed for VDRL. This test did come back negative yesterday. The patient was sent for venous Doppler ultrasound of the legs which came back negative. As noted the patient has a long history of HIV and is never been specifically treated for this condition. Arrangements are being made with his grandmother to start him on treatment for his HIV status. Social work is also been consulted for possible discharge planning. Patient may also require placement if necessary. The patient was seen by psychiatry. Their recommendations have been noted. We did review the MRI films of the brain today in detail with the radiologist. Although there is no enhancing lesions the deep white matter profuse changes still raises suspicion of possibility of PML. We have discussed this finding today with Dr. Miranda. We suggest the patient may be tested for ROEL virus by PCR. Dr. Miranda will order this testing even though the treatment would not change. Patient requires treatment of his HIV status which is the only form of treatment for PML. Dr. Miranda is also working with the patient's grandmother was very frustrated with her grandson as he has not sought out treatment years ago. The patient was started on specific antiviral treatment yesterday by Dr. Miranda. We will continue close neurological follow-up for the patient. The patient was able to ambulate with the use of his walker today in his room. Patient states he was able to sit up in the chair today for a short period of time. If he uses the walker he is able to get about fairly well Would consider subacute rehab placement for this patient early next week. Would recommend consultation with Dr. Lewis for possible subacute rehab. His overall prognosis at this time remains guarded. Objective - Vital Signs Vital signs: Vital Signs Temp 98.6 F 08/10/17 14:10 Pulse 71 08/10/17 14:10 Resp 16 08/10/17 14:10 BP 120/63 08/10/17 14:10 Pulse Ox 97 08/10/17 14:10 Intake & Output 08/09/17 08/10/17 08/10/17 18:59 06:59 18:59 Output Total 0 Balance 0 Output: Stool 0 Other: Voiding Method Bedside Commode Incontinent Incontinent Incontinent # Voids 4 4 # Bowel Movements 0 - Exam physical examination: PHYSICAL EXAMINATION: Patient is resting comfortably in bed. VITAL SIGNS: Blood pressure is [120/63] Heart rate is [71]. Respiration is [16] . Temperature is [98.7]. HEENT: Head is atraumatic, neck is supple, there were no carotid bruits. CHEST: Lungs are clear to auscultation and percussion. CARDIAC: S1, S2 normal rate and rhythm. There is no murmur. ABDOMEN: Soft and nontender. Bowel sounds are present. EXTREMITIES: There is no pedal edema. Peripheral pulses are present. Neurological examination: This patient's neurological examination is unchanged from yesterday. Patient's mental status still slightly inappropriate for his age. This may be related to his HIV encephalopathy. Continues to complain of leg weakness off and on. Patient was able to ambulate with the use of his walker. He was able to sit up in the chair earlier today. 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 Patient is being followed closely by Dr. Miranda from infectious disease. He was initially diagnosed with his HIV in 2008 but is not been treated for this condition over the years. He was just started on retroviral therapy by Dr. Miranda yesterday. He will require long-term treatment to see if this affects his overall HIV status. As noted yesterday he is also being considered for possibility of PML. His spinal fluid is been sent for ROEL virus analysis. This may take weeks to return from the laboratory. We will continue working with him in terms of his HIV encephalopathy and leg weakness. He has been able to ambulate today in his room with the use of his walker. There is been no significant change in his overall neurological status. Would recommend consultation with Dr. Lewis for possible subacute rehab. We will continue close neurological follow-up for the patient during this admission. We have recommended that he be considered for possible subacute rehab placement early next week. His overall prognosis at this time remains very guarded.
--- NOTE | 2017-08-10 16:35 | P.PN ---
Subjective Progress Note Date: 08/09/17 27-year-old -[place] male who is being evaluated for HIV encephalopathy and bilateral lower extremity weakness. Patient underwent MRI of the brain initially on admission which was reviewed and is negative for any evidence of acute stroke or hemorrhage. There was diffuse white matter changes noted. Patient also was able to complete MRI of the lumbar spine today for further evaluation of bilateral leg weakness. MRI results indicate mild degenerative changes in the lumbar spine. There was some minimal enhancing areas involving the sacral nerve root and the left lumbar nerve root which were nonspecific findings. No evidence suspicious for retroperitoneal findings as seen. No evidence for any suspicious nodular enhancement in the lumbar spine. We reviewed the results of the MRI of the lumbar spine today with the patient. He still is somewhat confused and slightly disoriented. This is felt to be secondary to HIV encephalopathy. 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 Overall the patient seems to be doing fairly well. We are following the patient closely with Dr. Miranda from infectious disease. We will await his further recommendations. This patient's CSF fluid was analyzed for VDRL. This test did come back negative yesterday. The patient was sent for venous Doppler ultrasound of the legs which came back negative. As noted the patient has a long history of HIV and is never been specifically treated for this condition. Arrangements are being made with his grandmother to start him on treatment for his HIV status. Social work is also been consulted for possible discharge planning. Patient may also require placement if necessary. The patient was seen by psychiatry today. There recommendations have been noted. We did review the MRI films of the brain today in detail with the radiologist. Although there is no enhancing lesions the deep white matter profuse changes still raises suspicion of possibility of PML. We have discussed this finding today with Dr. Miranda. We suggest the patient may be tested for ROEL virus by PCR. Dr. Miranda will order this testing even though the treatment would not change. Patient requires treatment of his HIV status which is the only form of treatment for PML. Dr. Miranda is also working with the patient's grandmother was very frustrated with her grandson as he has not sought out treatment years ago. The patient was started on specific antiviral treatment yesterday by Dr. Miranda. We will continue close neurological follow-up for the patient. His overall prognosis at this time remains guarded. Objective - Vital Signs Vital signs: Vital Signs Temp 97.1 F L 08/09/17 14:44 Pulse 67 08/09/17 14:44 Resp 16 08/09/17 16:00 BP 105/64 08/09/17 14:44 Pulse Ox 96 08/09/17 14:44 Intake & Output 08/08/17 08/09/17 08/09/17 18:59 06:59 18:59 Output Total 0 Balance 0 Weight 92.8 kg Output: Stool 0 Other: Voiding Method Bedside Commode Bedside Commode Incontinent Incontinent # Voids 2 4 4 # Bowel Movements 0 - Exam - Constitutional General appearance: Present: average body habitus, cooperative, no acute distress - EENT Eyes: Present: anicteric sclerae, EOMI, PERRLA, normal appearance ENT: Present: hearing grossly normal, normal oropharynx Ears: bilateral: normal - Neck Neck: Present: normal ROM. Absent: lymphadenopathy, rigidity, thyromegaly Carotids: negative: bruit present Thyroid: bilateral: normal size, negative: enlarged, nodule - Respiratory Respiratory: bilateral: CTA, negative: rales, rhonchi, wheezing - Cardiovascular Rhythm: regular Heart sounds: normal: S1, S2 Abnormal Heart Sounds: Absent: systolic murmur, diastolic murmur - Gastrointestinal General gastrointestinal: Present: normal bowel sounds, soft. Absent: distended , organomegaly, tenderness - Genitourinary Genitourinary Comment(s): deferred - Integumentary Integumentary: Present: normal turgor. Absent: jaundiced, rash, ulcer - Neurologic Neurologic: Present: CNII-XII intact. Absent: focal deficits - Musculoskeletal Musculoskeletal: Present: gait normal, strength equal bilaterally - Psychiatric Psychiatric: Present: A&O x's 3, appropriate affect, intact judgment & insight - Labs CBC & Chem 7: 08/07/17 05:50 08/07/17 05:50 Assessment and Plan Assessment: 1. Lower extremity weakness/HIV-induced neuropathy - Bilateral lower extremity venous Doppler is negative - Long-standing history of HIV without treatment - MRI of the brain is negative for enhancing lesions and white matter; shows profuse deep white matter changes suspicious for PML - Patient is to be tested for ROEL virus by PCR - Patient to be treated for his HIV itches the only form of treatment for PML - Patient's grandmother for the following along with the patient for compliance of therapy - ID and neurology are following - Patient is to be discharged to skilled facility for rehab 2. Mental status change/HIV encephalopathy - Patient remains somewhat confused and disoriented - Neurology is following and believe it's secondary to HIV encephalopathy - LP was done yesterday for evaluation of positive blood test for Treponema pallidum - CSF fluid was negative for VDRL 3. Mobitz type I second-degree AV block - 2-D echo with Doppler showed normal left ventricular systolic function - T4 and TSH are within normal limits - Cardiology has not recommended any further workup or treatment 4. HIV; human immunodeficiency virus infection - Patient is being treated with anti-retroviral therapy - Plan is for patient to follow-up with infection diseases outpatient 5. DVT prophylaxis CODE STATUS; full code Disposition; we'll continue to follow with the neurology and infection disease; patient is recommended skilled rehab; case management is following and trying to place patient in SNF Time with Patient: Greater than 30
--- NOTE | 2017-08-10 16:41 | P.PN ---
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 Patient underwent MRI of the brain initially on admission which was reviewed and is negative for any evidence of acute stroke or hemorrhage. There was diffuse white matter changes noted. Patient also was able to complete MRI of the lumbar spine today for further evaluation of bilateral leg weakness. MRI results indicate mild degenerative changes in the lumbar spine. There was some minimal enhancing areas involving the sacral nerve root and the left lumbar nerve root which were nonspecific findings. No evidence suspicious for retroperitoneal findings as seen. No evidence for any suspicious nodular enhancement in the lumbar spine. We reviewed the results of the MRI of the lumbar spine today with the patient. He still is somewhat confused and slightly disoriented. This is felt to be secondary to HIV encephalopathy. 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 Overall the patient seems to be doing fairly well. We are following the patient closely with Dr. Miranda from infectious disease. We will await his further recommendations. This patient's CSF fluid was analyzed for VDRL. This test did come back negative yesterday. The patient was sent for venous Doppler ultrasound of the legs which came back negative. As noted the patient has a long history of HIV and is never been specifically treated for this condition. Arrangements are being made with his grandmother to start him on treatment for his HIV status. Social work is also been consulted for possible discharge planning. Patient may also require placement if necessary. The patient was seen by psychiatry today. There recommendations have been noted. We did review the MRI films of the brain today in detail with the radiologist. Although there is no enhancing lesions the deep white matter profuse changes still raises suspicion of possibility of PML. We have discussed this finding today with Dr. Miranda. We suggest the patient may be tested for ROEL virus by PCR. Dr. Miranda will order this testing even though the treatment would not change. Patient requires treatment of his HIV status which is the only form of treatment for PML. Dr. Miranda is also working with the patient's grandmother was very frustrated with her grandson as he has not sought out treatment years ago. The patient was started on specific antiviral treatment yesterday by Dr. Miranda. We will continue close neurological follow-up for the patient. His overall prognosis at this time remains guarded. 08/10/2017 Patient seen and evaluated in the room at bedside; wants to be discharged home to his grandmother sounds; patient became inappropriate and irritable when detailed about possible discharge to skilled rehab; patient has been ambulating in the hallway with his walker Objective - Vital Signs Vital signs: Vital Signs Temp 98.6 F 08/10/17 14:10 Pulse 71 08/10/17 14:10 Resp 16 08/10/17 14:10 BP 120/63 08/10/17 14:10 Pulse Ox 97 08/10/17 14:10 Intake & Output 08/09/17 08/10/17 08/10/17 18:59 06:59 18:59 Output Total 0 Balance 0 Output: Stool 0 Other: Voiding Method Bedside Commode Incontinent Incontinent Incontinent # Voids 4 4 # Bowel Movements 0 - Exam - Constitutional General appearance: Present: average body habitus, cooperative, no acute distress - EENT Eyes: Present: anicteric sclerae, EOMI, PERRLA, normal appearance ENT: Present: hearing grossly normal, normal oropharynx Ears: bilateral: normal - Neck Neck: Present: normal ROM. Absent: lymphadenopathy, rigidity, thyromegaly Carotids: negative: bruit present Thyroid: bilateral: normal size, negative: enlarged, nodule - Respiratory Respiratory: bilateral: CTA, negative: rales, rhonchi, wheezing - Cardiovascular Rhythm: regular Heart sounds: normal: S1, S2 Abnormal Heart Sounds: Absent: systolic murmur, diastolic murmur - Gastrointestinal General gastrointestinal: Present: normal bowel sounds, soft. Absent: distended , organomegaly, tenderness - Genitourinary Genitourinary Comment(s): deferred - Integumentary Integumentary: Present: normal turgor. Absent: jaundiced, rash, ulcer - Neurologic Neurologic: Present: CNII-XII intact. Absent: focal deficits - Musculoskeletal Musculoskeletal: Present: gait normal, strength equal bilaterally - Psychiatric Psychiatric: Present: A&O x's 3, appropriate affect, intact judgment & insight - Labs CBC & Chem 7: 08/07/17 05:50 08/07/17 05:50 Assessment and Plan Assessment: 1. Lower extremity weakness/HIV-induced neuropathy - Bilateral lower extremity venous Doppler is negative - Long-standing history of HIV without treatment - MRI of the brain is negative for enhancing lesions and white matter; shows profuse deep white matter changes suspicious for PML - Patient is to be tested for ROEL virus by PCR - Patient to be treated for his HIV itches the only form of treatment for PML - Patient's grandmother for the following along with the patient for compliance of therapy - ID and neurology are following - Patient is to be discharged to skilled facility for rehab 2. Mental status change/HIV encephalopathy - Patient remains somewhat confused and disoriented - Neurology is following and believe it's secondary to HIV encephalopathy - LP was done yesterday for evaluation of positive blood test for Treponema pallidum - CSF fluid was negative for VDRL 3. Mobitz type I second-degree AV block - 2-D echo with Doppler showed normal left ventricular systolic function - T4 and TSH are within normal limits - Cardiology has not recommended any further workup or treatment 4. HIV; human immunodeficiency virus infection - Patient is being treated with anti-retroviral therapy; therapy started by ID yesterday - Plan is for patient to follow-up with infection diseases outpatient 5. DVT prophylaxis CODE STATUS; full code Disposition; we'll continue to follow with the neurology and infection disease; patient is recommended skilled rehab; case management is following and trying to place patient in SNF Time with Patient: Greater than 30
[2017-08-10] MEDS: MELATONIN 5 MG TABLET PO SCH (22:50)
--- NOTE | 2017-08-11 00:37 | P.PN ---
Subjective Progress Note Date: 08/10/17 Principal diagnosis: weakness This is a 27-year-old Afro-[place]ian male who had a recent hospitalization on 05/2017 at which time he presented with bilateral lower extremity weakness and broad-based gait. Been progressively getting worse for 2 months. He underwent a CT of the brain showed no acute intracranial process or abnormal intracranial enhancement. Cerebral atrophy is advanced for patient's age. 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 T suppressor cells 680, percentage of seat T4 helper 14, absolute CD4 helper 149, CD4/CD8 ratio 0.2 , percentage of CD8 suppressor 65. Patient up signing himself out AGAINST MEDICAL ADVICE. He was to follow-up with Dr. Miranda but did not do so. Patient has history of HIV that was diagnosed in 2008 but he has never sought treatment and has not been on any retro-antiviral medication for this. Patient presented back to [facility] emergency center on August 01 with complaints of bilateral lower extremity pain and muscle aches. Patient complains of feeling pain all over his body. He has an exaggerated response to light palpation. He has difficulty rolling in his bed due to pain. Patient denies having any cough, shortness of breath, fever, chills. He had a chest x- ray that showed possible new right upper lobe infiltrate. Lumbar spine was normal. Patient was given cefepime and Diflucan and Levaquin in the emergency center and continued on vancomycin. She was admitted to the selective care unit and there is a consult in place with cardiology for second degree AV block and with Dr. Bentley for lower extremity weakness. 08/05/2017 patient is doing somewhat better today. 08/05/2017 patient is feeling somewhat better today. He is undergoing a lumbar puncture is an MRI of his spine. He is to be a bit anxious but wanted to go home. He however is denying any new acute difficulties. Leg weakness continues in able to ambulate a few steps. 08/06/2017 patient feeling better but still weak and able to stand and take a few steps only. 08/07/2017 patient feels about the same. Continues to have lower extremity weakness and only able to and related few steps. He has been seen by psychiatry and there is no notation of incompetence. The patient likely will go to extended care to recieve rehab. Unclear rate of improvement once he begins antiretroviral therapy. The CSF VDRL is negative, no evidence of neurosyphilis at this time. 08/08/2017 patient is sitting up eating food that his grandmother has brought. The social situation remains difficult in that he does not have a specific location to be able to go to, he had been living with his mother but she appears to not wanting to live with her at this time. Likely will go to rehab. The case was again discussed with the neurologist. 08/10/2017 remains stable awaits rehab Objective - Vital Signs Vital signs: Vital Signs Temp 99.2 F 08/10/17 23:00 Pulse 58 L 08/10/17 23:00 Resp 20 08/10/17 23:00 BP 122/75 08/10/17 23:00 Pulse Ox 99 08/10/17 23:00 Intake & Output 08/10/17 08/10/17 08/11/17 06:59 18:59 06:59 Output Total 0 Balance 0 Output: Stool 0 Other: Voiding Method Incontinent Incontinent Incontinent # Voids 4 # Bowel Movements 0 1 - Exam Gen: This is a 27-year-old -[place] male. He is in bed and appears to be comfortable. Much less pain and has some anxiety HEENT: Head is atraumatic, normocephalic. Pupils equal, round. Sclerae is anicteric. Conjunctiva pink. Mucous members of the mouth are moist. No thrush noted. NECK: Supple. No JVD. No lymphadenopathy. No thyromegaly. LUNGS: Clear to auscultation. No wheezes or rhonchi. No intercostal retractions. HEART: Regular rate and rhythm. No murmur. ABDOMEN: Soft. Bowel sounds are present. No masses. No tenderness. EXTREMITIES: No pedal edema. No calf tenderness.was able to stand but only for a few seconds. NEUROLOGICAL: Patient is awake, alert and Patient able to answer questions, but has childlike behavior with no previous diagnosis of intellectual disability. - Labs CBC & Chem 7: 08/07/17 05:50 08/07/17 05:50 Labs: Laboratory Results WBC 3.1 k/uL (3.8-10.6) L 08/07/17 05:50 RBC 4.14 m/uL (4.30-5.90) L 08/07/17 05:50 Hgb 12.9 gm/dL (13.0-17.5) L 08/07/17 05:50 Hct 38.3 % (39.0-53.0) L 08/07/17 05:50 MCV 92.6 fL (80.0-100.0) 08/07/17 05:50 MCH 31.3 pg (25.0-35.0) 08/07/17 05:50 MCHC 33.7 g/dL (31.0-37.0) 08/07/17 05:50 RDW 16.1 % (11.5-15.5) H 08/07/17 05:50 Plt Count 96 k/uL (150-450) L 08/07/17 05:50 Neutrophils % 53 % 08/06/17 05:49 Neutrophils % (Manual) 40 % 08/07/17 05:50 Band Neutrophils % 4 % 08/07/17 05:50 Lymphocytes % 33 % 08/06/17 05:49 Lymphocytes % (Manual) 39 % 08/07/17 05:50 Monocytes % 8 % 08/06/17 05:49 Monocytes % (Manual) 13 % 08/07/17 05:50 Eosinophils % 3 % 08/06/17 05:49 Eosinophils % (Manual) 4 % 08/07/17 05:50 Basophils % 1 % 08/06/17 05:49 Neutrophils # 1.4 k/uL (1.3-7.7) 08/06/17 05:49 Neutrophils # (Manual) 1.30 k/uL (1.3-7.7) 08/07/17 05:50 Lymphocytes # 0.9 k/uL (1.0-4.8) L 08/06/17 05:49 Lymphocytes # (Manual) 1.21 k/uL (1.0-4.8) 08/07/17 05:50 Monocytes # 0.2 k/uL (0-1.0) 08/06/17 05:49 Monocytes # (Manual) 0.40 k/uL (0-1.0) 08/07/17 05:50 Eosinophils # 0.1 k/uL (0-0.7) 08/06/17 05:49 Eosinophils # (Manual) 0.12 k/uL (0-0.7) 08/07/17 05:50 Basophils # 0.0 k/uL (0-0.2) 08/06/17 05:49 Nucleated RBCs 0 /100 WBC (0-0) 08/07/17 05:50 Manual Slide Review Performed 08/07/17 05:50 Large Platelets Present 08/07/17 05:50 RBC Morphology Normal 08/06/17 05:49 Anisocytosis Slight 08/07/17 05:50 PT 9.8 sec (9.0-12.0) 08/01/17 20:05 INR 1.0 (<1.2) 08/01/17 20:05 APTT 25.2 sec (22.0-30.0) 08/01/17 20:05 Sodium 146 mmol/L (137-145) H 08/07/17 05:50 Potassium 4.7 mmol/L (3.5-5.1) 08/07/17 05:50 Chloride 104 mmol/L (98-107) 08/07/17 05:50 Carbon Dioxide 30 mmol/L (22-30) 08/07/17 05:50 Anion Gap 12 mmol/L 08/07/17 05:50 BUN 9 mg/dL (9-20) 08/07/17 05:50 Creatinine 0.75 mg/dL (0.66-1.25) 08/07/17 05:50 Est GFR (CKD-EPI)AfAm >90 (>60 ml/min/1.73 sqM) 08/07/17 05:50 Est GFR (CKD-EPI)NonAf >90 (>60 ml/min/1.73 sqM) 08/07/17 05:50 Glucose 80 mg/dL (74-99) 08/07/17 05:50 Plasma Lactic Acid Ignacio 0.9 mmol/L (0.7-2.0) 08/01/17 20:43 Calcium 9.3 mg/dL (8.4-10.2) 08/07/17 05:50 Magnesium 1.9 mg/dL (1.6-2.3) 08/02/17 06:30 Total Bilirubin 0.5 mg/dL (0.2-1.3) 08/01/17 20:05 AST 58 U/L (17-59) 08/01/17 20:05 ALT 54 U/L (21-72) 08/01/17 20:05 Alkaline Phosphatase 141 U/L (38-126) H 08/01/17 20:05 Creatine Kinase 50 U/L (55-170) L 08/01/17 20:05 Total Protein 7.5 g/dL (6.3-8.2) 08/01/17 20:05 Albumin 3.6 g/dL (3.5-5.0) 08/01/17 20:05 TSH 1.320 mIU/L (0.465-4.680) 08/02/17 06:30 Free T4 0.90 ng/dL (0.78-2.19) 08/02/17 06:30 Urine Color Yellow 08/02/17 00:30 Urine Appearance Clear (Clear) 08/02/17 00:30 Urine pH 5.5 (5.0-8.0) 08/02/17 00:30 Ur Specific Randall 1.012 (1.001-1.035) 08/02/17 00:30 Urine Protein Negative (Negative) 08/02/17 00:30 Urine Glucose (UA) Negative (Negative) 08/02/17 00:30 Urine Ketones Negative (Negative) 08/02/17 00:30 Urine Blood Negative (Negative) 08/02/17 00:30 Urine Nitrite Negative (Negative) 08/02/17 00:30 Urine Bilirubin Negative (Negative) 08/02/17 00:30 Urine Urobilinogen <2.0 mg/dL (<2.0) 08/02/17 00:30 Ur Leukocyte Esterase Negative (Negative) 08/02/17 00:30 CSF Tube Number 4 08/05/17 15:10 CSF Volume 2 08/05/17 15:10 CSF Appearance Clear 08/05/17 15:10 CSF Color Colorless 08/05/17 15:10 CSF RBC 460 u/L (0-10) H 08/05/17 15:10 CSF Tot Nucleated Cells 7 u/L (0-5) H 08/05/17 15:10 CSF Crenated Cells 0 % 08/05/17 15:10 CSF Fresh RBCs 100 % 08/05/17 15:10 CSF Glucose 48 mg/dL (40-70) 08/05/17 15:10 CSF Total Protein 70 mg/dL (12-60) H 08/05/17 15:10 CSF VDRL Titer TNP 08/05/17 15:10 CSF VDRL Nonreactive (Nonreactive) 08/05/17 15:10 RPR Non-Reactive 08/02/17 15:19 Treponema pallidum Ab Reactive (Non-Reactive) H 08/02/17 15:19 HIV-1 RNA Quant 2,120,855 Copies/mL (<40) H 08/02/17 15:19 HIV RNA logcopies/mL Ult 6.33 (<1.60) H 08/02/17 15:19 HIV-1 RNA (PCR) DETECTED (Not detected) H 08/02/17 15:19 Microbiology 08/01/17 20:05 Blood Blood Culture - Final No Growth after 144 hours Assessment and Plan (1) HIV (human immunodeficiency virus infection) Current Visit: Yes Status: Acute Code(s): B20 - HUMAN IMMUNODEFICIENCY VIRUS [HIV] DISEASE SNOMED Code(s): 05316844 (2) HIV encephalopathy Narrative/Plan: 27-year-old male who has a known history of HIV and by his low CD4 count Ades has not been under therapy. He now presents with some neurological complaints especially of weakness. The patient also seems to have difficulties with his mentation. Concern at this point and will b.at risk for opportunistic infection as well as lymphoma. Neurology will evaluate and lumbar puncture is being requested ensuring that VDRL of the CSF is also obtained. The patient has a low CD4 count we've asked for a viral load as well as a genotype so we may be able to initiate antiviral therapy. This will be a challenge while he is hospitalized. the patient does agree to treatment for HIV therapy once possible. With his current mental status patient is difficult to evaluate but is able to state on going leg weakness. CSF VDRL is pending 08/06/2017 finds the patient to be somewhat anxious as he has been. Today he was able to stand although he prefilled briefly and take a few steps. The patient's psychosocial situation is gotten very difficult. His mother has gone out of town and has voiced to case management that she does not want him to come live with her. The patient's grandmother is involved in determining if that is an psychiatric evaluation for competence has been requested. We have asked for the grandmother to cigar packer and picker his HIV medications and bring them here so we may start pending his discharge soon. The patient is somewhat anxious about his discharge to home although certainly that is currently in process of being determined. option for a living situation at discharge. Social workers been consulted trying to determine if he will need some type of placement. 08/07/2017 patient is more restful today. It is related that he is able to stand and take just a few steps. Has significant weakness. Case is discussed with the neurologist. With initiation of antiretroviral therapy should be some improvement of his underlying HIV encephalopathy. The rate of improvement and extent of improvement is difficult to repairer finished metal at this time. will follow up in the office within 4 weeks of discharge with some follow-up blood work to make sure he is improving and responding to therapy. 08/08/2017 patient is without acute new changes. Eating some food his grandmother brought him without difficulties. Currently working towards placement to receive his therapy to try to improve his strength from his underlying HIV encephalopathy and possible spinal cord involvement. We'll request ROEL virus testing upon discussion with the neurologist. 08/09/2017 patient without acute changes, He however is eating a bit better today.no other new acute complaints. Testing is pending and is being treated for HIV encephalopathy with anti-retroviral therapy and Will go to rehab after discharge 08/10/2017 stable awaiting transfer to rehab Current Visit: Yes Status: Acute Code(s): B20 - HUMAN IMMUNODEFICIENCY VIRUS [HIV] DISEASE; G93.40 - ENCEPHALOPATHY, UNSPECIFIED SNOMED Code(s): 566949944
[2017-08-11] MEDS: SODIUM CHLORIDE 0.9% 1,000 ML IV SCH ×3 (03:05→21:08)
[2017-08-11] MEDS: NYSTATIN 100,000 UNIT/ML SUSP 500,000 UNIT/5 ML CUP PO SCH ×4 (08:25→23:35)
[2017-08-11] MEDS: PANTOPRAZOLE 40 MG TABLET PO SCH (08:26)
--- NOTE | 2017-08-11 11:19 | P.PN ---
Subjective Progress Note Date: 08/11/17 This patient is a 27-year-old -[place]iger[place] male who is being evaluated for HIV encephalopathy and bilateral lower extremity weakness. Patient was diagnosed with HIV in 2008 but has never sought medical treatment. His grandmother has been frustrated with him as she had been suggesting he should be on medication and treated. Patient was admitted to Hospital on 08/05/2017 for bilateral leg weakness and increased confusion. His clinical history suggests he has some degree of HIV encephalopathy causing mental status changes. He underwent an MRI of the brain and lumbar spine results of which have been noted. MRI of the brain failed to reveal any enhancing lesions. There was diffuse white matter changes noted throughout the brain suggesting possibility of PML. This was discussed with Dr. Miranda from infectious disease and we have ordered a ROEL Virus test for this patient by PCR for further evaluation of PML. This will be ordered by Dr. Miranda and will await these results. The patient patient also underwent a lumbar puncture the results of which have been noted. His spinal fluid came back negative for VDRL. As noted he was started on antiretrovirals therapy by Dr. Miranda which hopefully should help his overall condition. Patient states he is been doing about the same and complains of pain in the legs at times. 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 Patient is awaiting transferred to rehab for further PT OT treatment and evaluation. The patient states he was able to sit up in the chair yesterday. He has been ambulating with the use of his walker. Overall his neurological status has remained stable. We will continue to follow the patient closely with Dr. Miranda and await any further recommendations from him. This patient's overall prognosis at this time remains very guarded. Objective - Vital Signs Vital signs: Vital Signs Temp 98.8 F 08/11/17 06:00 Pulse 61 08/11/17 06:00 Resp 18 08/11/17 06:00 BP 123/74 08/11/17 06:00 Pulse Ox 95 08/11/17 06:00 Intake & Output 08/10/17 08/11/17 08/11/17 18:59 06:59 18:59 Output Total 0 Balance 0 Output: Stool 0 Other: Voiding Method Incontinent Incontinent Diaper Incontinent # Voids 1 # Bowel Movements 1 - Exam physical examination: PHYSICAL EXAMINATION: Patient is resting comfortably in bed. VITAL SIGNS: Blood pressure is [123/74] Heart rate is [61]. Respiration is [18] . Temperature is [98.8]. HEENT: Head is atraumatic, neck is supple, there were no carotid bruits. CHEST: Lungs are clear to auscultation and percussion. CARDIAC: S1, S2 normal rate and rhythm. There is no murmur. ABDOMEN: Soft and nontender. Bowel sounds are present. EXTREMITIES: There is no pedal edema. Peripheral pulses are present. Neurological examination: This patient's neurological examination is unchanged from yesterday. Patient's mental status still slightly inappropriate for his age possibly related to HIV encephalopathy. Continues to complain of leg weakness off and on. Patient was able to ambulate with the use of his walker. He was able to sit up in the chair yesterday. 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 Patient is being followed closely by Dr. Miranda from infectious disease. He was initially diagnosed with his HIV in 2008 but is not been treated for this condition over the years. He was just started on retroviral therapy by Dr. Miranda yesterday. He will require long-term treatment to see if this affects his overall HIV status. As noted yesterday he is also being considered for possibility of PML. His spinal fluid is been sent for ROEL Virus analysis by PCR. This may take weeks to return from the laboratory. We will continue working with him in terms of his HIV encephalopathy and leg weakness. He has been able to ambulate today in his room with the use of his walker. There is been no significant change in his overall neurological status. Would recommend consultation with Dr. Lewis for possible subacute rehab. Patient may require placement in to shelter facility or subacute rehab. We will continue close neurological follow-up for the patient during this admission. We have recommended that he be considered for possible subacute rehab placement early next week. His neurological examination remains stable. His overall prognosis at this time remains very guarded.
--- NOTE | 2017-08-11 19:34 | P.PN ---
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 Patient underwent MRI of the brain initially on admission which was reviewed and is negative for any evidence of acute stroke or hemorrhage. There was diffuse white matter changes noted. Patient also was able to complete MRI of the lumbar spine today for further evaluation of bilateral leg weakness. MRI results indicate mild degenerative changes in the lumbar spine. There was some minimal enhancing areas involving the sacral nerve root and the left lumbar nerve root which were nonspecific findings. No evidence suspicious for retroperitoneal findings as seen. No evidence for any suspicious nodular enhancement in the lumbar spine. We reviewed the results of the MRI of the lumbar spine today with the patient. He still is somewhat confused and slightly disoriented. This is felt to be secondary to HIV encephalopathy. 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 Overall the patient seems to be doing fairly well. We are following the patient closely with Dr. Miranda from infectious disease. We will await his further recommendations. This patient's CSF fluid was analyzed for VDRL. This test did come back negative yesterday. The patient was sent for venous Doppler ultrasound of the legs which came back negative. As noted the patient has a long history of HIV and is never been specifically treated for this condition. Arrangements are being made with his grandmother to start him on treatment for his HIV status. Social work is also been consulted for possible discharge planning. Patient may also require placement if necessary. The patient was seen by psychiatry today. There recommendations have been noted. We did review the MRI films of the brain today in detail with the radiologist. Although there is no enhancing lesions the deep white matter profuse changes still raises suspicion of possibility of PML. We have discussed this finding today with Dr. Miranda. We suggest the patient may be tested for ROEL virus by PCR. Dr. Miranda will order this testing even though the treatment would not change. Patient requires treatment of his HIV status which is the only form of treatment for PML. Dr. Miranda is also working with the patient's grandmother was very frustrated with her grandson as he has not sought out treatment years ago. The patient was started on specific antiviral treatment yesterday by Dr. Miranda. We will continue close neurological follow-up for the patient. His overall prognosis at this time remains guarded. 08/10/2017 Patient seen and evaluated in the room at bedside; wants to be discharged home to his grandmother sounds; patient became inappropriate and irritable when detailed about possible discharge to skilled rehab; patient has been ambulating in the hallway with his walker Objective - Vital Signs Vital signs: Vital Signs Temp 98.9 F 08/11/17 15:09 Pulse 72 08/11/17 15:09 Resp 16 08/11/17 15:09 BP 115/74 08/11/17 15:09 Pulse Ox 97 08/11/17 15:09 Intake & Output 08/11/17 08/11/17 08/12/17 06:59 18:59 06:59 Other: Voiding Method Incontinent Diaper Incontinent # Voids 1 # Bowel Movements 1 - Exam - Constitutional General appearance: Present: average body habitus, cooperative, no acute distress - EENT Eyes: Present: anicteric sclerae, EOMI, PERRLA, normal appearance ENT: Present: hearing grossly normal, normal oropharynx Ears: bilateral: normal - Neck Neck: Present: normal ROM. Absent: lymphadenopathy, rigidity, thyromegaly Carotids: negative: bruit present Thyroid: bilateral: normal size, negative: enlarged, nodule - Respiratory Respiratory: bilateral: CTA, negative: rales, rhonchi, wheezing - Cardiovascular Rhythm: regular Heart sounds: normal: S1, S2 Abnormal Heart Sounds: Absent: systolic murmur, diastolic murmur - Gastrointestinal General gastrointestinal: Present: normal bowel sounds, soft. Absent: distended , organomegaly, tenderness - Genitourinary Genitourinary Comment(s): deferred - Integumentary Integumentary: Present: normal turgor. Absent: jaundiced, rash, ulcer - Neurologic Neurologic: Present: CNII-XII intact. Absent: focal deficits - Musculoskeletal Musculoskeletal: Present: gait normal, strength equal bilaterally - Psychiatric Psychiatric: Present: A&O x's 3, appropriate affect, intact judgment & insight - Labs CBC & Chem 7: 08/07/17 05:50 08/07/17 05:50 Assessment and Plan Assessment: 1. Lower extremity weakness/HIV-induced neuropathy - Bilateral lower extremity venous Doppler is negative - Long-standing history of HIV without treatment - MRI of the brain is negative for enhancing lesions and white matter; shows profuse deep white matter changes suspicious for PML - Patient is to be tested for ROEL virus by PCR - Patient to be treated for his HIV itches the only form of treatment for PML - Patient's grandmother for the following along with the patient for compliance of therapy - ID and neurology are following - Patient is to be discharged to skilled facility for rehab 2. Mental status change/HIV encephalopathy - Patient remains somewhat confused and disoriented - Neurology is following and believe it's secondary to HIV encephalopathy - LP was done yesterday for evaluation of positive blood test for Treponema pallidum - CSF fluid was negative for VDRL 3. Mobitz type I second-degree AV block - 2-D echo with Doppler showed normal left ventricular systolic function - T4 and TSH are within normal limits - Cardiology has not recommended any further workup or treatment 4. HIV; human immunodeficiency virus infection - Patient is being treated with anti-retroviral therapy; therapy started by ID yesterday - Plan is for patient to follow-up with infection diseases outpatient 5. DVT prophylaxis CODE STATUS; full code Disposition; we'll continue to follow with the neurology and infection disease; patient is recommended skilled rehab; case management is following and trying to place patient in SNF Time with Patient: Less than 30
[2017-08-11] MEDS: TEMAZEPAM 15 MG CAP PO PRN (21:06)
[2017-08-11] MEDS: MELATONIN 5 MG TABLET PO SCH (21:07)
--- NOTE | 2017-08-12 06:33 | P.CONS ---
History of Present Illness - Chief Complaint Gait disturbance due to lower extremity weakness - History of Present Illness I had the opportunity to see patient for inpatient rehab consultation with regard to gait disturbance due to lower extremity weakness. Note patient resistant historian and examinee. History elicited from chart. Recent admission July 08, patient discharge AMA. Readmitted at this time, August 01. Seen by Dr. Miranda for possible toxoplasmosis. Symmetric Dr. Villa for cardiology and Dr. Tyree Fung for the lower extremity weakness. Also seen by psychiatry. Chest x-ray demonstrates resolved right upper lobe infiltrate. Lower extremity Doppler negative for DVT right or left. Lumbar MRI with L1 protrusion at L4 DDD, no narrowings. OT reports patient declined attempts at treatment 3. Previous functional history: Patient declined to give history. Review of Systems Review of systems: ENT: Denies sneezes or discharge. Eyes: Denies discharge or photophobia. Cardiac: Denies chest pain or palpitation. Pulmonary: Denies cough or shortness of breath. Gastrointestinal: Denies nausea, emesis, constipation, diarrhea. Genitourinary: Denies discharge or frequency. Musculoskeletal: Reports tale pain. Chart indicates lower extremity weakness. Neurologic: Denies motor or sensory change. Endocrine: Denies shakes or sweats. Oncology: Denies cancers. Dermatologic: Denies rash, itching, pruritus. ALLERGY/immunology: Denies sneezes, rashes. Past Medical History Past Medical History: No Reported History Additional Past Medical History / Comment(s): hiv + History of Any Multi-Drug Resistant Organisms: None Reported Past Surgical History: No Surgical Hx Reported Past Psychological History: No Psychological Hx Reported Smoking Status: Never smoker Past Alcohol Use History: Occasional Additional Past Alcohol Use History / Comment(s): Patient denies any history of smoking. He does use marijuana and smokes alcohol occasionally. He lives at home with his mother. There are dogs in the home. 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 He denies any recent travel. Past Drug Use History: Marijuana Medications and Allergies Home Medications Medication Instructions Recorded Confirmed Type Elviteg/Tracee/Emtric/Tenofo Dis 1 tab PO DAILY #30 tab 08/05/17 Rx [Stribild Tablet] Allergies Allergy/AdvReac Type Severity Reaction Status Date / Time No Known Allergies Allergy Verified 08/01/17 20:06 Physical Exam Vitals: Vital Signs Temp Pulse Resp BP Pulse Ox 08/11/17 23:00 98.8 F 70 16 149/97 97 08/11/17 15:09 98.9 F 72 16 115/74 97 Intake and Output 08/11/17 08/11/17 08/12/17 14:59 22:59 06:59 Other: Voiding Method Diaper Diaper Incontinent Incontinent # Voids 1 7 # Bowel Movements 0 Skin: Good color, texture, turgor. General: Medium build and comfortable appearance. Patient resists attempt to fully examine. Head: Normocephalic, atraumatic. Eyes: Symmetric. Pupils equal round. Ears: Symmetric. Hearing within normal limits. Mouth: Clear. Neck: Supple. Carotid without bruit. Cardiac: Regular rate and rhythm. Lungs: Clear anteriorly and posteriorly. Abdomen: Soft active nontender. Extremities: Normal tone. Neurological: Mental status: Alert, cooperative, pleasant. Cranial nerves: Symmetric facial tone and trapezius. Motor: Demonstrates movement and hands and feet but declines to elevate arms or legs. Sensation: Intact throughout. DTRs: Did not attempt. Mobility: Declines. 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 Gait disturbance. 2. HIV with neuropathy and lower extremity weakness. Comments and plan: PT and OT prescribed. Patient however resistant patient and will be difficult to treat because of attitude. Rehab prognosis thus guarded.
[2017-08-12] MEDS: NYSTATIN 100,000 UNIT/ML SUSP 500,000 UNIT/5 ML CUP PO SCH ×4 (08:20→20:03)
[2017-08-12] MEDS: PANTOPRAZOLE 40 MG TABLET PO SCH (08:20)
[2017-08-12] MEDS: SODIUM CHLORIDE 0.9% 1,000 ML IV SCH ×2 (08:22→16:20)
[2017-08-12] MEDS: IBUPROFEN 400 MG TAB PO PRN (12:43)
[2017-08-12] MEDS: POLYETHYLENE GLYCOL 3350 17 GM POWD.PACK PO PRN (13:02)
[2017-08-12 14:22] VITALS: BMI 26.9
--- NOTE | 2017-08-12 14:43 | P.PN ---
Subjective Patient is seen and examined by me at bedside Patient looks his stable from yesterday no new complaints No chest pain, dyspnea, or dizziness no change in pt clinical condition , regarding his mentation or leg weakness no new complaint Objective - Vital Signs Vital signs: Vital Signs Temp 98.8 F 08/12/17 05:55 Pulse 70 08/12/17 08:05 Resp 16 08/12/17 05:55 BP 130/78 08/12/17 05:55 Pulse Ox 95 08/12/17 08:10 Intake & Output 08/11/17 08/12/17 08/12/17 18:59 06:59 18:59 Weight 92.8 kg Other: Voiding Method Diaper Diaper Diaper Incontinent Incontinent Incontinent # Voids 1 5 # Bowel Movements 1 - Exam Constitutional: No acute distress, conversant, pleasant Eyes: Anicteric sclerae, moist conjunctiva, no lid-lag PERRLA ENMT: NC/AT Oropharynx clear, no erythema, exudates Neck: Supple, FROM, no masses, or JVD No carotid bruits No thyromegaly Lungs: Clear to auscultation Clear to percussion Normal respiratory effort, no accessory muscle use Cardiovascular: Heart regular in rate and rhythm, No murmurs, gallops, or rubs No peripheral edema Abdominal: Soft Nontender, no guarding, rebound or rigidity Abdomen moving with respiration Normoactive bowel sounds No hepatomegaly, No splenomegaly No palpable mass No abdominal wall hernia noted Skin: Normal temperature, tone, texture, turgor No induration No subcutaneous nodules No rash, lesions No ulcers Extremities: No digital cyanosis No clubbing Pedal pulses intact and symmetrical Radial pulses intact and symmetrical Normal gait and station No calf tenderness Psychiatric: Alert and oriented to person, place and time Appropriate affect Intact judgement Neuro: Muscles Strength symmetrical weakness of both lower extremities Sensation to light touch grossly present throughout Cranial nerves II-XII grossly intact No focal sensory deficits - Labs CBC & Chem 7: 08/07/17 05:50 08/07/17 05:50 Assessment and Plan Assessment: HIV HIV encephalopathy, 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, possible Second degree heart block, Mobitz type I Plan: Consults from cardiology, neurology, and ID disease are appreciated He has second degree heart block with Mobitz type I cardiology evaluation is appreciated no further recommendation and workup for now TSH within normal limits and echo is reviewed Patient underwent MRI of the brain which shows cerebral atrophy neurological input is appreciated 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
--- NOTE | 2017-08-12 19:35 | P.PN ---
Subjective Progress Note Date: 08/12/17 This patient is a 27-year-old -[place] male who is being evaluated for HIV encephalopathy and bilateral lower extremity weakness. Patient was diagnosed with HIV in 2008 but has never sought medical treatment. His grandmother has been frustrated with him as she had been suggesting he should be on medication and treated. Patient was admitted to Hospital on 08/05/2017 for bilateral leg weakness and increased confusion. His clinical history suggests he has some degree of HIV encephalopathy causing mental status changes. He underwent an MRI of the brain and lumbar spine results of which have been noted. MRI of the brain failed to reveal any enhancing lesions. There was diffuse white matter changes noted throughout the brain suggesting possibility of PML. This was discussed with Dr. Miranda from infectious disease and we have ordered a ROEL Virus test for this patient by PCR for further evaluation of PML. This will be ordered by Dr. Miranda and will await these results. The patient patient also underwent a lumbar puncture the results of which have been noted. His spinal fluid came back negative for VDRL. As noted he was started on antiretrovirals therapy by Dr. Miranda which hopefully should help his overall condition. Patient states he is been doing about the same and complains of pain in the legs at times. 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 Patient is awaiting transferred to rehab for further PT OT treatment and evaluation. The patient states he was able to sit up in the chair yesterday. He was able to sit up in the chair once again today for 1 hour. He is ambulating with the use of his walker. He has been ambulating with the use of his walker. Overall his neurological status has remained stable. We will continue to follow the patient closely with Dr. Miranda and await any further recommendations from him. Patient was seen today by Dr. Lewis for possible inpatient rehab placement. The patient seems to be very resistant to being placed in the inpatient rehab unit at [facility] at this time. We will await further recommendations from discharge planning for placement for this patient. Patient's neurological examination remains unchanged. Would continue current treatment plans. This patient's overall prognosis at this time remains very guarded. Objective - Vital Signs Vital signs: Vital Signs Temp 98.9 F 08/12/17 14:52 Pulse 78 08/12/17 14:52 Resp 16 08/12/17 15:04 BP 121/80 08/12/17 14:52 Pulse Ox 98 08/12/17 14:52 Intake & Output 08/11/17 08/12/17 08/12/17 18:59 06:59 18:59 Output Total 0 Balance 0 Weight 92.8 kg Output: Urine 0 Other: Voiding Method Diaper Diaper Diaper Incontinent Incontinent Incontinent # Voids 1 5 1 # Bowel Movements 1 - Exam physical examination: PHYSICAL EXAMINATION: Patient is resting comfortably in bed. VITAL SIGNS: Blood pressure is [121/80] Heart rate is [78]. Respiration is [17] . Temperature is [98.9]. HEENT: Head is atraumatic, neck is supple, there were no carotid bruits. CHEST: Lungs are clear to auscultation and percussion. CARDIAC: S1, S2 normal rate and rhythm. There is no murmur. ABDOMEN: Soft and nontender. Bowel sounds are present. EXTREMITIES: There is no pedal edema. Peripheral pulses are present. Neurological examination: This patient's neurological examination is unchanged from yesterday. He is more awake and alert today and is following simple commands. His memory and intellectual functions are impaired. Continues to complain of leg weakness off and on. Patient was able to ambulate with the use of his walker. He was able to sit up in the chair today. 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 Patient is being followed closely by Dr. Miranda from infectious disease. He was initially diagnosed with his HIV in 2008 but is not been treated for this condition over the years. He was just started on retroviral therapy by Dr. Miranda yesterday. He will require long-term treatment to see if this affects his overall HIV status. As noted yesterday he is also being considered for possibility of PML. His spinal fluid is been sent for ROEL Virus analysis by PCR. This may take weeks to return from the laboratory. We will continue working with him in terms of his HIV encephalopathy and leg weakness. He has been able to ambulate today in his room with the use of his walker. There is been no significant change in his overall neurological status. Would recommend consultation with Dr. Lewis for possible subacute rehab. The patient was evaluated today by Dr. Lewis. Apparently the patient is very resistant to go to the inpatient rehab unit. We will await further recommendations from the production control planner. Patient may require placement in to [facility] facility or subacute rehab. We will continue close neurological follow-up for the patient during this admission. We have recommended that he be considered for possible subacute rehab placement early next week. His neurological examination remains stable. His overall prognosis at this time remains very guarded.
[2017-08-12] MEDS: MELATONIN 5 MG TABLET PO SCH (20:03)
--- NOTE | 2017-08-12 21:42 | P.PN ---
Subjective Progress Note Date: 08/12/17 Principal diagnosis: weakness This is a 27-year-old Afro-[place] male who had a recent hospitalization on 05/2017 at which time he presented with bilateral lower extremity weakness and broad-based gait. Been progressively getting worse for 2 months. He underwent a CT of the brain showed no acute intracranial process or abnormal intracranial enhancement. Cerebral atrophy is advanced for patient's age. 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 T suppressor cells 680, percentage of seat T4 helper 14, absolute CD4 helper 149, CD4/CD8 ratio 0.2 , percentage of CD8 suppressor 65. Patient up signing himself out AGAINST MEDICAL ADVICE. He was to follow-up with Dr. Miranda but did not do so. Patient has history of HIV that was diagnosed in 2008 but he has never sought treatment and has not been on any retro-antiviral medication for this. Patient presented back to [facility] emergency center on August 01 with complaints of bilateral lower extremity pain and muscle aches. Patient complains of feeling pain all over his body. He has an exaggerated response to light palpation. He has difficulty rolling in his bed due to pain. Patient denies having any cough, shortness of breath, fever, chills. He had a chest x- ray that showed possible new right upper lobe infiltrate. Lumbar spine was normal. Patient was given cefepime and Diflucan and Levaquin in the emergency center and continued on vancomycin. She was admitted to the selective care unit and there is a consult in place with cardiology for second degree AV block and with Dr. Bentley for lower extremity weakness. 08/05/2017 patient is doing somewhat better today. 08/05/2017 patient is feeling somewhat better today. He is undergoing a lumbar puncture is an MRI of his spine. He is to be a bit anxious but wanted to go home. He however is denying any new acute difficulties. Leg weakness continues in able to ambulate a few steps. 08/06/2017 patient feeling better but still weak and able to stand and take a few steps only. 08/07/2017 patient feels about the same. Continues to have lower extremity weakness and only able to and related few steps. He has been seen by psychiatry and there is no notation of incompetence. The patient likely will go to extended care to recieve rehab. Unclear rate of improvement once he begins antiretroviral therapy. The CSF VDRL is negative, no evidence of neurosyphilis at this time. 08/08/2017 patient is sitting up eating food that his grandmother has brought. The social situation remains difficult in that he does not have a specific location to be able to go to, he had been living with his mother but she appears to not wanting to live with her at this time. Likely will go to rehab. The case was again discussed with the neurologist. 08/10/2017 remains stable awaits rehab 08/12/2017and changes the patient remains weak. His been evaluated by rehabilitation and seems to be a poorly motivated candidate. Objective - Vital Signs Vital signs: Vital Signs Temp 98.9 F 08/12/17 14:52 Pulse 78 08/12/17 14:52 Resp 16 08/12/17 15:04 BP 121/80 08/12/17 14:52 Pulse Ox 98 08/12/17 14:52 Intake & Output 08/12/17 08/12/17 08/13/17 06:59 18:59 06:59 Output Total 0 Balance 0 Weight 92.8 kg Output: Urine 0 Other: Voiding Method Diaper Diaper Incontinent Incontinent # Voids 5 1 # Bowel Movements 1 - Exam Gen: This is a 27-year-old -[place] male. He is in bed and appears to be comfortable. Much less pain and has some anxiety HEENT: Head is atraumatic, normocephalic. Pupils equal, round. Sclerae is anicteric. Conjunctiva pink. Mucous members of the mouth are moist. No thrush noted. NECK: Supple. No JVD. No lymphadenopathy. No thyromegaly. LUNGS: Clear to auscultation. No wheezes or rhonchi. No intercostal retractions. HEART: Regular rate and rhythm. No murmur. ABDOMEN: Soft. Bowel sounds are present. No masses. No tenderness. EXTREMITIES: No pedal edema. No calf tenderness.was able to stand but only for a few seconds. NEUROLOGICAL: Patient is awake, alert and Patient able to answer questions, but has childlike behavior with no previous diagnosis of intellectual disability. - Labs CBC & Chem 7: 08/07/17 05:50 08/07/17 05:50 Labs: Laboratory Results WBC 3.1 k/uL (3.8-10.6) L 08/07/17 05:50 RBC 4.14 m/uL (4.30-5.90) L 08/07/17 05:50 Hgb 12.9 gm/dL (13.0-17.5) L 08/07/17 05:50 Hct 38.3 % (39.0-53.0) L 08/07/17 05:50 MCV 92.6 fL (80.0-100.0) 08/07/17 05:50 MCH 31.3 pg (25.0-35.0) 08/07/17 05:50 MCHC 33.7 g/dL (31.0-37.0) 08/07/17 05:50 RDW 16.1 % (11.5-15.5) H 08/07/17 05:50 Plt Count 96 k/uL (150-450) L 08/07/17 05:50 Neutrophils % 53 % 08/06/17 05:49 Neutrophils % (Manual) 40 % 08/07/17 05:50 Band Neutrophils % 4 % 08/07/17 05:50 Lymphocytes % 33 % 08/06/17 05:49 Lymphocytes % (Manual) 39 % 08/07/17 05:50 Monocytes % 8 % 08/06/17 05:49 Monocytes % (Manual) 13 % 08/07/17 05:50 Eosinophils % 3 % 08/06/17 05:49 Eosinophils % (Manual) 4 % 08/07/17 05:50 Basophils % 1 % 08/06/17 05:49 Neutrophils # 1.4 k/uL (1.3-7.7) 08/06/17 05:49 Neutrophils # (Manual) 1.30 k/uL (1.3-7.7) 08/07/17 05:50 Lymphocytes # 0.9 k/uL (1.0-4.8) L 08/06/17 05:49 Lymphocytes # (Manual) 1.21 k/uL (1.0-4.8) 08/07/17 05:50 Monocytes # 0.2 k/uL (0-1.0) 08/06/17 05:49 Monocytes # (Manual) 0.40 k/uL (0-1.0) 08/07/17 05:50 Eosinophils # 0.1 k/uL (0-0.7) 08/06/17 05:49 Eosinophils # (Manual) 0.12 k/uL (0-0.7) 08/07/17 05:50 Basophils # 0.0 k/uL (0-0.2) 08/06/17 05:49 Nucleated RBCs 0 /100 WBC (0-0) 08/07/17 05:50 Manual Slide Review Performed 08/07/17 05:50 Large Platelets Present 08/07/17 05:50 RBC Morphology Normal 08/06/17 05:49 Anisocytosis Slight 08/07/17 05:50 PT 9.8 sec (9.0-12.0) 08/01/17 20:05 INR 1.0 (<1.2) 08/01/17 20:05 APTT 25.2 sec (22.0-30.0) 08/01/17 20:05 Sodium 146 mmol/L (137-145) H 08/07/17 05:50 Potassium 4.7 mmol/L (3.5-5.1) 08/07/17 05:50 Chloride 104 mmol/L (98-107) 08/07/17 05:50 Carbon Dioxide 30 mmol/L (22-30) 08/07/17 05:50 Anion Gap 12 mmol/L 08/07/17 05:50 BUN 9 mg/dL (9-20) 08/07/17 05:50 Creatinine 0.75 mg/dL (0.66-1.25) 08/07/17 05:50 Est GFR (CKD-EPI)AfAm >90 (>60 ml/min/1.73 sqM) 08/07/17 05:50 Est GFR (CKD-EPI)NonAf >90 (>60 ml/min/1.73 sqM) 08/07/17 05:50 Glucose 80 mg/dL (74-99) 08/07/17 05:50 Plasma Lactic Acid Ignacio 0.9 mmol/L (0.7-2.0) 08/01/17 20:43 Calcium 9.3 mg/dL (8.4-10.2) 08/07/17 05:50 Magnesium 1.9 mg/dL (1.6-2.3) 08/02/17 06:30 Total Bilirubin 0.5 mg/dL (0.2-1.3) 08/01/17 20:05 AST 58 U/L (17-59) 08/01/17 20:05 ALT 54 U/L (21-72) 08/01/17 20:05 Alkaline Phosphatase 141 U/L (38-126) H 08/01/17 20:05 Creatine Kinase 50 U/L (55-170) L 08/01/17 20:05 Total Protein 7.5 g/dL (6.3-8.2) 08/01/17 20:05 Albumin 3.6 g/dL (3.5-5.0) 08/01/17 20:05 TSH 1.320 mIU/L (0.465-4.680) 08/02/17 06:30 Free T4 0.90 ng/dL (0.78-2.19) 08/02/17 06:30 Urine Color Yellow 08/02/17 00:30 Urine Appearance Clear (Clear) 08/02/17 00:30 Urine pH 5.5 (5.0-8.0) 08/02/17 00:30 Ur Specific [place] 1.012 (1.001-1.035) 08/02/17 00:30 Urine Protein Negative (Negative) 08/02/17 00:30 Urine Glucose (UA) Negative (Negative) 08/02/17 00:30 Urine Ketones Negative (Negative) 08/02/17 00:30 Urine Blood Negative (Negative) 08/02/17 00:30 Urine Nitrite Negative (Negative) 08/02/17 00:30 Urine Bilirubin Negative (Negative) 08/02/17 00:30 Urine Urobilinogen <2.0 mg/dL (<2.0) 08/02/17 00:30 Ur Leukocyte Esterase Negative (Negative) 08/02/17 00:30 CSF Tube Number 4 08/05/17 15:10 CSF Volume 2 08/05/17 15:10 CSF Appearance Clear 08/05/17 15:10 CSF Color Colorless 08/05/17 15:10 CSF RBC 460 u/L (0-10) H 08/05/17 15:10 CSF Tot Nucleated Cells 7 u/L (0-5) H 08/05/17 15:10 CSF Crenated Cells 0 % 08/05/17 15:10 CSF Fresh RBCs 100 % 08/05/17 15:10 CSF Glucose 48 mg/dL (40-70) 08/05/17 15:10 CSF Total Protein 70 mg/dL (12-60) H 08/05/17 15:10 CSF VDRL Titer TNP 08/05/17 15:10 CSF VDRL Nonreactive (Nonreactive) 08/05/17 15:10 RPR Non-Reactive 08/02/17 15:19 Treponema pallidum Ab Reactive (Non-Reactive) H 08/02/17 15:19 HIV-1 RNA Quant 2,120,855 Copies/mL (<40) H 08/02/17 15:19 HIV RNA logcopies/mL Ult 6.33 (<1.60) H 08/02/17 15:19 HIV-1 RNA (PCR) DETECTED (Not detected) H 08/02/17 15:19 Microbiology 08/01/17 20:05 Blood Blood Culture - Final No Growth after 144 hours Assessment and Plan (1) HIV (human immunodeficiency virus infection) Current Visit: Yes Status: Acute Code(s): B20 - HUMAN IMMUNODEFICIENCY VIRUS [HIV] DISEASE SNOMED Code(s): 51692852 (2) HIV encephalopathy Narrative/Plan: 27-year-old male who has a known history of HIV and by his low CD4 count Ades has not been under therapy. He now presents with some neurological complaints especially of weakness. The patient also seems to have difficulties with his mentation. Concern at this point and will b.at risk for opportunistic infection as well as lymphoma. Neurology will evaluate and lumbar puncture is being requested ensuring that VDRL of the CSF is also obtained. The patient has a low CD4 count we've asked for a viral load as well as a genotype so we may be able to initiate antiviral therapy. This will be a challenge while he is hospitalized. the patient does agree to treatment for HIV therapy once possible. With his current mental status patient is difficult to evaluate but is able to state on going leg weakness. CSF VDRL is pending 08/06/2017 finds the patient to be somewhat anxious as he has been. Today he was able to stand although he prefilled briefly and take a few steps. The patient's psychosocial situation is gotten very difficult. His mother has gone out of town and has voiced to case management that she does not want him to come live with her. The patient's grandmother is involved in determining if that is an psychiatric evaluation for competence has been requested. We have asked for the grandmother to filler picker his HIV medications and bring them here so we may start pending his discharge soon. The patient is somewhat anxious about his discharge to home although certainly that is currently in process of being determined. option for a living situation at discharge. Social workers been consulted trying to determine if he will need some type of placement. 08/07/2017 patient is more restful today. It is related that he is able to stand and take just a few steps. Has significant weakness. Case is discussed with the neurologist. With initiation of antiretroviral therapy should be some improvement of his underlying HIV encephalopathy. 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 will follow up in the office within 4 weeks of discharge with some follow-up blood work to make sure he is improving and responding to therapy. 08/08/2017 patient is without acute new changes. Eating some food his grandmother brought him without difficulties. Currently working towards placement to receive his therapy to try to improve his strength from his underlying HIV encephalopathy and possible spinal cord involvement. We'll request ROEL virus testing upon discussion with the neurologist. 08/09/2017 patient without acute changes, He however is eating a bit better today.no other new acute complaints. Testing is pending and is being treated for HIV encephalopathy with anti-retroviral therapy and Will go to rehab after discharge 08/10/2017 stable awaiting transfer to rehab 5 [id number] patient remained stable. Await any potential rehab plans given his inability to care for himself at this time. May need [facility] home placement. Current Visit: Yes Status: Acute Code(s): B20 - HUMAN IMMUNODEFICIENCY VIRUS [HIV] DISEASE; G93.40 - ENCEPHALOPATHY, UNSPECIFIED SNOMED Code(s): 715005199
[2017-08-13] MEDS: SODIUM CHLORIDE 0.9% 1,000 ML IV SCH ×3 (05:27→21:58)
[2017-08-13] MEDS: PANTOPRAZOLE 40 MG TABLET PO SCH (08:41)
[2017-08-13] MEDS: NYSTATIN 100,000 UNIT/ML SUSP 500,000 UNIT/5 ML CUP PO SCH ×5 (08:41→20:50)
--- NOTE | 2017-08-13 17:20 | P.PN ---
Subjective Patient is seen and examined by me at bedside Patient looks his stable from yesterday no new complaints No chest pain, dyspnea, or dizziness no change in pt clinical condition , regarding his mentation or leg weakness no new complaint Objective - Vital Signs Vital signs: Vital Signs Temp 99.5 F 08/13/17 14:15 Pulse 86 08/13/17 14:15 Resp 16 08/13/17 16:00 BP 118/78 08/13/17 14:15 Pulse Ox 96 08/13/17 14:15 Intake & Output 08/12/17 08/13/17 08/13/17 18:59 06:59 18:59 Output Total 0 Balance 0 Weight 92.8 kg Output: Urine 0 Other: Voiding Method Diaper Diaper Diaper Incontinent Incontinent Incontinent # Voids 1 4 1 # Bowel Movements 0 - Exam Constitutional: No acute distress, conversant, pleasant Eyes: Anicteric sclerae, moist conjunctiva, no lid-lag PERRLA ENMT: NC/AT Oropharynx clear, no erythema, exudates Neck: Supple, FROM, no masses, or JVD No carotid bruits No thyromegaly Lungs: Clear to auscultation Clear to percussion Normal respiratory effort, no accessory muscle use Cardiovascular: Heart regular in rate and rhythm, No murmurs, gallops, or rubs No peripheral edema Abdominal: Soft Nontender, no guarding, rebound or rigidity Abdomen moving with respiration Normoactive bowel sounds No hepatomegaly, No splenomegaly No palpable mass No abdominal wall hernia noted Skin: Normal temperature, tone, texture, turgor No induration No subcutaneous nodules No rash, lesions No ulcers Extremities: No digital cyanosis No clubbing Pedal pulses intact and symmetrical Radial pulses intact and symmetrical Normal gait and station No calf tenderness Psychiatric: Alert and oriented to person, place and time Appropriate affect Intact judgement Neuro: Muscles Strength symmetrical weakness of both lower extremities Sensation to light touch grossly present throughout Cranial nerves II-XII grossly intact No focal sensory deficits - Labs CBC & Chem 7: 08/07/17 05:50 08/07/17 05:50 Assessment and Plan Assessment: HIV HIV encephalopathy, 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, possible Second degree heart block, Mobitz type I Plan: Consults from cardiology, neurology, and ID disease are appreciated He has second degree heart block with Mobitz type I cardiology evaluation is appreciated no further recommendation and workup for now TSH within normal limits and echo is reviewed Patient underwent MRI of the brain which shows cerebral atrophy neurological input is appreciated 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
[2017-08-13] MEDS: IBUPROFEN 400 MG TAB PO PRN (18:02)
[2017-08-13] MEDS: MELATONIN 5 MG TABLET PO SCH (20:49)
[2017-08-13] MEDS: ACETAMINOPHEN TAB 325 MG TAB PO PRN (20:53)
--- NOTE | 2017-08-13 22:13 | P.PN ---
Subjective Progress Note Date: 08/13/17 Principal diagnosis: weakness This is a 27-year-old Afro-Maltese male who had a recent hospitalization on 05/2017 at which time he presented with bilateral lower extremity weakness and broad-based gait. Been progressively getting worse for 2 months. He underwent a CT of the brain showed no acute intracranial process or abnormal intracranial enhancement. Cerebral atrophy is advanced for patient's age. 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 T suppressor cells 680, percentage of seat T4 helper 14, absolute CD4 helper 149, CD4/CD8 ratio 0.2 , percentage of CD8 suppressor 65. Patient up signing himself out AGAINST MEDICAL ADVICE. He was to follow-up with Dr. Miranda but did not do so. Patient has history of HIV that was diagnosed in 2008 but he has never sought treatment and has not been on any retro-antiviral medication for this. Patient presented back to [facility] emergency center on August 01 with complaints of bilateral lower extremity pain and muscle aches. Patient complains of feeling pain all over his body. He has an exaggerated response to light palpation. He has difficulty rolling in his bed due to pain. Patient denies having any cough, shortness of breath, fever, chills. He had a chest x- ray that showed possible new right upper lobe infiltrate. Lumbar spine was normal. Patient was given cefepime and Diflucan and Levaquin in the emergency center and continued on vancomycin. She was admitted to the selective care unit and there is a consult in place with cardiology for second degree AV block and with Dr. Bentley for lower extremity weakness. 08/05/2017 patient is doing somewhat better today. 08/05/2017 patient is feeling somewhat better today. He is undergoing a lumbar puncture is an MRI of his spine. He is to be a bit anxious but wanted to go home. He however is denying any new acute difficulties. Leg weakness continues in able to ambulate a few steps. 08/06/2017 patient feeling better but still weak and able to stand and take a few steps only. 08/07/2017 patient feels about the same. Continues to have lower extremity weakness and only able to and related few steps. He has been seen by psychiatry and there is no notation of incompetence. The patient likely will go to extended care to recieve rehab. Unclear rate of improvement once he begins antiretroviral therapy. The CSF VDRL is negative, no evidence of neurosyphilis at this time. 08/08/2017 patient is sitting up eating food that his grandmother has brought. The social situation remains difficult in that he does not have a specific location to be able to go to, he had been living with his mother but she appears to not wanting to live with her at this time. Likely will go to rehab. The case was again discussed with the neurologist. 08/10/2017 remains stable awaits rehab 08/12/2017and changes the patient remains weak. His been evaluated by rehabilitation and seems to be a poorly motivated candidate. 08/13/2017 little change SW is attempting placement but is not yet successful. No complaints related to the new HIV therapy. Objective - Vital Signs Vital signs: Vital Signs Temp 99.5 F 08/13/17 14:15 Pulse 86 08/13/17 14:15 Resp 16 08/13/17 16:00 BP 118/78 08/13/17 14:15 Pulse Ox 96 08/13/17 14:15 Intake & Output 08/13/17 08/13/17 08/14/17 06:59 18:59 06:59 Output Total 0 Balance 0 Weight 92.8 kg Output: Stool 0 Other: Voiding Method Diaper Diaper Diaper Incontinent Incontinent Incontinent # Voids 4 2 # Bowel Movements 0 - Exam Gen: This is a 27-year-old -Maltese male. He is in bed and appears to be comfortable. Much less pain and has some anxiety HEENT: Head is atraumatic, normocephalic. Pupils equal, round. Sclerae is anicteric. Conjunctiva pink. Mucous members of the mouth are moist. No thrush noted. NECK: Supple. No JVD. No lymphadenopathy. No thyromegaly. LUNGS: Clear to auscultation. No wheezes or rhonchi. No intercostal retractions. HEART: Regular rate and rhythm. No murmur. ABDOMEN: Soft. Bowel sounds are present. No masses. No tenderness. EXTREMITIES: No pedal edema. No calf tenderness.was able to stand but only for a few seconds. NEUROLOGICAL: Patient is awake, alert and Patient able to answer questions, but has childlike behavior with no previous diagnosis of intellectual disability. - Labs CBC & Chem 7: 08/07/17 05:50 05/02/18 05:50 Labs: Laboratory Results WBC 3.1 k/uL (3.8-10.6) L 08/07/17 05:50 RBC 4.14 m/uL (4.30-5.90) L 08/07/17 05:50 Hgb 12.9 gm/dL (13.0-17.5) L 08/07/17 05:50 Hct 38.3 % (39.0-53.0) L 08/07/17 05:50 MCV 92.6 fL (80.0-100.0) 08/07/17 05:50 MCH 31.3 pg (25.0-35.0) 08/07/17 05:50 MCHC 33.7 g/dL (31.0-37.0) 08/07/17 05:50 RDW 16.1 % (11.5-15.5) H 08/07/17 05:50 Plt Count 96 k/uL (150-450) L 08/07/17 05:50 Neutrophils % 53 % 08/06/17 05:49 Neutrophils % (Manual) 40 % 08/07/17 05:50 Band Neutrophils % 4 % 08/07/17 05:50 Lymphocytes % 33 % 08/06/17 05:49 Lymphocytes % (Manual) 39 % 08/07/17 05:50 Monocytes % 8 % 08/06/17 05:49 Monocytes % (Manual) 13 % 08/07/17 05:50 Eosinophils % 3 % 08/06/17 05:49 Eosinophils % (Manual) 4 % 08/07/17 05:50 Basophils % 1 % 08/06/17 05:49 Neutrophils # 1.4 k/uL (1.3-7.7) 08/06/17 05:49 Neutrophils # (Manual) 1.30 k/uL (1.3-7.7) 08/07/17 05:50 Lymphocytes # 0.9 k/uL (1.0-4.8) L 08/06/17 05:49 Lymphocytes # (Manual) 1.21 k/uL (1.0-4.8) 08/07/17 05:50 Monocytes # 0.2 k/uL (0-1.0) 08/06/17 05:49 Monocytes # (Manual) 0.40 k/uL (0-1.0) 08/07/17 05:50 Eosinophils # 0.1 k/uL (0-0.7) 08/06/17 05:49 Eosinophils # (Manual) 0.12 k/uL (0-0.7) 08/07/17 05:50 Basophils # 0.0 k/uL (0-0.2) 08/06/17 05:49 Nucleated RBCs 0 /100 WBC (0-0) 08/07/17 05:50 Manual Slide Review Performed 08/07/17 05:50 Large Platelets Present 08/07/17 05:50 RBC Morphology Normal 08/06/17 05:49 Anisocytosis Slight 08/07/17 05:50 PT 9.8 sec (9.0-12.0) 08/01/17 20:05 INR 1.0 (<1.2) 08/01/17 20:05 APTT 25.2 sec (22.0-30.0) 08/01/17 20:05 Sodium 146 mmol/L (137-145) H 08/07/17 05:50 Potassium 4.7 mmol/L (3.5-5.1) 08/07/17 05:50 Chloride 104 mmol/L (98-107) 08/07/17 05:50 Carbon Dioxide 30 mmol/L (22-30) 08/07/17 05:50 Anion Gap 12 mmol/L 08/07/17 05:50 BUN 9 mg/dL (9-20) 08/07/17 05:50 Creatinine 0.75 mg/dL (0.66-1.25) 08/07/17 05:50 Est GFR (CKD-EPI)AfAm >90 (>60 ml/min/1.73 sqM) 08/07/17 05:50 Est GFR (CKD-EPI)NonAf >90 (>60 ml/min/1.73 sqM) 08/07/17 05:50 Glucose 80 mg/dL (74-99) 08/07/17 05:50 Plasma Lactic Acid Ignacio 0.9 mmol/L (0.7-2.0) 08/01/17 20:43 Calcium 9.3 mg/dL (8.4-10.2) 08/07/17 05:50 Magnesium 1.9 mg/dL (1.6-2.3) 08/02/17 06:30 Total Bilirubin 0.5 mg/dL (0.2-1.3) 08/01/17 20:05 AST 58 U/L (17-59) 08/01/17 20:05 ALT 54 U/L (21-72) 08/01/17 20:05 Alkaline Phosphatase 141 U/L (38-126) H 08/01/17 20:05 Creatine Kinase 50 U/L (55-170) L 08/01/17 20:05 Total Protein 7.5 g/dL (6.3-8.2) 08/01/17 20:05 Albumin 3.6 g/dL (3.5-5.0) 08/01/17 20:05 TSH 1.320 mIU/L (0.465-4.680) 08/02/17 06:30 Free T4 0.90 ng/dL (0.78-2.19) 08/02/17 06:30 Urine Color Yellow 08/02/17 00:30 Urine Appearance Clear (Clear) 08/02/17 00:30 Urine pH 5.5 (5.0-8.0) 08/02/17 00:30 Ur Specific [place] 1.012 (1.001-1.035) 08/02/17 00:30 Urine Protein Negative (Negative) 08/02/17 00:30 Urine Glucose (UA) Negative (Negative) 08/02/17 00:30 Urine Ketones Negative (Negative) 08/02/17 00:30 Urine Blood Negative (Negative) 08/02/17 00:30 Urine Nitrite Negative (Negative) 08/02/17 00:30 Urine Bilirubin Negative (Negative) 08/02/17 00:30 Urine Urobilinogen <2.0 mg/dL (<2.0) 08/02/17 00:30 Ur Leukocyte Esterase Negative (Negative) 08/02/17 00:30 CSF Tube Number 4 08/05/17 15:10 CSF Volume 2 08/05/17 15:10 CSF Appearance Clear 08/05/17 15:10 CSF Color Colorless 08/05/17 15:10 CSF RBC 460 u/L (0-10) H 08/05/17 15:10 CSF Tot Nucleated Cells 7 u/L (0-5) H 08/05/17 15:10 CSF Crenated Cells 0 % 08/05/17 15:10 CSF Fresh RBCs 100 % 08/05/17 15:10 CSF Glucose 48 mg/dL (40-70) 08/05/17 15:10 CSF Total Protein 70 mg/dL (12-60) H 08/05/17 15:10 CSF VDRL Titer TNP 08/05/17 15:10 CSF VDRL Nonreactive (Nonreactive) 08/05/17 15:10 RPR Non-Reactive 08/02/17 15:19 Treponema pallidum Ab Reactive (Non-Reactive) H 08/02/17 15:19 HIV-1 RNA Quant 2,120,855 Copies/mL (<40) H 08/02/17 15:19 HIV RNA logcopies/mL Ult 6.33 (<1.60) H 08/02/17 15:19 HIV-1 RNA (PCR) DETECTED (Not detected) H 08/02/17 15:19 Miscellaneous Test ROEL POLYOMA VIRUS 08/07/17 05:50 Misc Test Result See Comment 08/07/17 05:50 Microbiology 08/01/17 20:05 Blood Blood Culture - Final No Growth after 144 hours Assessment and Plan (1) HIV (human immunodeficiency virus infection) Current Visit: Yes Status: Acute Code(s): B20 - HUMAN IMMUNODEFICIENCY VIRUS [HIV] DISEASE SNOMED Code(s): 18678429 (2) HIV encephalopathy Narrative/Plan: 27-year-old male who has a known history of HIV and by his low CD4 count Ades has not been under therapy. He now presents with some neurological complaints especially of weakness. The patient also seems to have difficulties with his mentation. Concern at this point and will b.at risk for opportunistic infection as well as lymphoma. Neurology will evaluate and lumbar puncture is being requested ensuring that VDRL of the CSF is also obtained. The patient has a low CD4 count we've asked for a viral load as well as a genotype so we may be able to initiate antiviral therapy. This will be a challenge while he is hospitalized. the patient does agree to treatment for HIV therapy once possible. With his current mental status patient is difficult to evaluate but is able to state on going leg weakness. CSF VDRL is pending 08/06/2017 finds the patient to be somewhat anxious as he has been. Today he was able to stand although he prefilled briefly and take a few steps. The patient's psychosocial situation is gotten very difficult. His mother has gone out of town and has voiced to case management that she does not want him to come live with her. The patient's grandmother is involved in determining if that is an psychiatric evaluation for competence has been requested. We have asked for the grandmother to cigar packer and picker his HIV medications and bring them here so we may start pending his discharge soon. The patient is somewhat anxious about his discharge to home although certainly that is currently in process of being determined. option for a living situation at discharge. Social workers been consulted trying to determine if he will need some type of placement. 08/07/2017 patient is more restful today. It is related that he is able to stand and take just a few steps. Has significant weakness. Case is discussed with the neurologist. With initiation of antiretroviral therapy should be some improvement of his underlying HIV encephalopathy. The rate of improvement and extent of improvement is difficult to train announcer at this time. will follow up in the office within 4 weeks of discharge with some follow-up blood work to make sure he is improving and responding to therapy. 08/08/2017 patient is without acute new changes. Eating some food his grandmother brought him without difficulties. Currently working towards placement to receive his therapy to try to improve his strength from his underlying HIV encephalopathy and possible spinal cord involvement. We'll request ROEL virus testing upon discussion with the neurologist. 08/09/2017 patient without acute changes, He however is eating a bit better today.no other new acute complaints. Testing is pending and is being treated for HIV encephalopathy with anti-retroviral therapy and Will go to rehab after discharge. 08/17/2017 patient with little change currently attempting to have discharge plan to rehab but is not going well, grandmother willing to be guardian but does not want patient to live with her. May need public guardian. Stribild will be available via [employer] program. Current Visit: Yes Status: Acute Code(s): B20 - HUMAN IMMUNODEFICIENCY VIRUS [HIV] DISEASE; G93.40 - ENCEPHALOPATHY, UNSPECIFIED SNOMED Code(s): 061164488
[2017-08-14] MEDS: PANTOPRAZOLE 40 MG TABLET PO SCH (08:03)
[2017-08-14] MEDS: NYSTATIN 100,000 UNIT/ML SUSP 500,000 UNIT/5 ML CUP PO SCH ×4 (08:03→20:18)
[2017-08-14 09:19] LABS: Basophils % (A) 1 %; Eosinophils # (A) 0.1 k/uL (0-0.7); Eosinophils % (A) 3 %; HCT 36.3 % (39.0-53.0); HGB 12.3 gm/dL (13.0-17.5); Lymphocytes # (A) 1.3 k/uL (1.0-4.8); Lymphocytes % (A) 28 %; MCH 30.8 pg (25.0-35.0); MCHC 33.9 g/dL (31.0-37.0); Mean Platelet Volume 8.4; Monocytes # (A) 0.4 k/uL (0-1.0); Monocytes % (A) 9 %; Neutrophils # (A) 2.6 k/uL (1.3-7.7); Neutrophils % (A) 56 %; RBC 3.99 m/uL (4.30-5.90); RDW 13.5 % (11.5-15.5); WBC 4.7 k/uL (3.8-10.6)
[2017-08-14 09:27] LABS: Platelet Count 173 k/uL (150-450)
[2017-08-14 09:40] LABS: Anion Gap 14 mmol/L; Blood Urea Nitrogen 15 mg/dL (9-20); Calcium 9.1 mg/dL (8.4-10.2); Carbon Dioxide 28 mmol/L (22-30); Chloride 102 mmol/L (98-107); Glucose 105 mg/dL (74-99); Potassium 4.2 mmol/L (3.5-5.1); Sodium 144 mmol/L (137-145)
[2017-08-14] MEDS: SODIUM CHLORIDE 0.9% 1,000 ML IV SCH ×2 (14:48→19:56)
[2017-08-14] MEDS: MELATONIN 5 MG TABLET PO SCH (20:18)
--- NOTE | 2017-08-14 22:18 | P.PN ---
Subjective Progress Note Date: 08/14/17 This patient is a 27-year-old -[place] male who is being evaluated for HIV encephalopathy and bilateral lower extremity weakness. Patient was diagnosed with HIV in 2008 but has never sought medical treatment. His grandmother has been frustrated with him as she had been suggesting he should be on medication and treated. Patient was admitted to Hospital on 08/05/2017 for bilateral leg weakness and increased confusion. His clinical history suggests he has some degree of HIV encephalopathy causing mental status changes. He underwent an MRI of the brain and lumbar spine results of which have been noted. MRI of the brain failed to reveal any enhancing lesions. There was diffuse white matter changes noted throughout the brain suggesting possibility of PML. This was discussed with Dr. Miranda from infectious disease and we have ordered a ROEL Virus test for this patient by PCR for further evaluation of PML. This will be ordered by Dr. Miranda and will await these results. The patient patient also underwent a lumbar puncture the results of which have been noted. His spinal fluid came back negative for VDRL. As noted he was started on antiretrovirals therapy by Dr. Miranda which hopefully should help his overall condition. Patient states he is been doing about the same and complains of pain in the legs at times. 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 Patient is awaiting transferred to rehab for further PT OT treatment and evaluation. The patient states he was able to sit up in the chair yesterday. He was able to sit up in the chair once again today for 1 hour. He is ambulating with the use of his walker. He has been ambulating with the use of his walker. Overall his neurological status has remained stable. We will continue to follow the patient closely with Dr. Miranda and await any further recommendations from him. Patient was seen today by Dr. Lewis for possible inpatient rehab placement. The patient seems to be very resistant to being placed in the inpatient rehab unit at [facility] at this time. We will await further recommendations from discharge planning for placement for this patient. Patient may need to be considered for a [facility] home. Patient's grandmother is willing to take guardianship for the patient but does not want patient to live with her. Patient may need public guardian. He has been started on treatment for his HIV. He is on Stribil[employer] which will be available via [employer] program. Patient's neurological examination remains unchanged. Would continue current treatment plans. This patient's overall prognosis at this time remains very guarded. Objective - Vital Signs Vital signs: Vital Signs Temp 98.7 F 08/14/17 14:17 Pulse 75 08/14/17 14:17 Resp 16 08/14/17 14:17 BP 115/74 08/14/17 14:17 Pulse Ox 96 08/14/17 14:17 Intake & Output 08/13/17 08/14/17 08/14/17 18:59 06:59 18:59 Intake Total 400 Output Total 0 Balance 0 400 Weight 92.8 kg Intake: Oral 400 Output: Stool 0 Other: Voiding Method Diaper Diaper Diaper Incontinent Incontinent Incontinent # Voids 2 2 5 # Bowel Movements 1 - Exam physical examination: PHYSICAL EXAMINATION: Patient is resting comfortably in bed. VITAL SIGNS: Blood pressure is [115/74] Heart rate is [75]. Respiration is [16] . Temperature is [98.7]. HEENT: Head is atraumatic, neck is supple, there were no carotid bruits. CHEST: Lungs are clear to auscultation and percussion. CARDIAC: S1, S2 normal rate and rhythm. There is no murmur. ABDOMEN: Soft and nontender. Bowel sounds are present. EXTREMITIES: There is no pedal edema. Peripheral pulses are present. Neurological examination: This patient's neurological examination is unchanged from yesterday. He is more awake and alert today and is following simple commands. His memory and intellectual functions are impaired. Continues to complain of leg weakness off and on. Patient was able to ambulate with the use of his walker. He was able to sit up in the chair today. - Labs CBC & Chem 7: 08/14/17 08:59 08/14/17 08:59 Labs: Abnormal Lab Results - Last 24 Hours (Table) 08/14/17 08/14/17 Range/Units 08:59 08:59 RBC 3.99 L (4.30-5.90) m/uL Hgb 12.3 L (13.0-17.5) gm/dL Hct 36.3 L (39.0-53.0) % Glucose 105 H (74-99) mg/dL Assessment and Plan (1) HIV (human immunodeficiency virus infection) Current Visit: Yes Status: Acute Code(s): B20 - HUMAN IMMUNODEFICIENCY VIRUS [HIV] DISEASE SNOMED Code(s): 84362633 (2) Lower extremity weakness Current Visit: Yes Status: Acute Code(s): R29.898 - OTH SYMPTOMS AND SIGNS INVOLVING THE MUSCULOSKELETAL SYSTEM SNOMED Code(s): 166805964 (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 Patient is being followed closely by Dr. Miranda from infectious disease. He was initially diagnosed with his HIV in 2008 but is not been treated for this condition over the years. He was just started on retroviral therapy by Dr. Miranda yesterday. He will require long-term treatment to see if this affects his overall HIV status. As noted yesterday he is also being considered for possibility of PML. His spinal fluid is been sent for ROEL Virus analysis by PCR. This may take weeks to return from the laboratory. We will continue working with him in terms of his HIV encephalopathy and leg weakness. He has been able to ambulate today in his room with the use of his walker. There is been no significant change in his overall neurological status. Would recommend consultation with Dr. Lewis for possible subacute rehab. The patient was evaluated by Dr. Lewis. Apparently the patient is very resistant to go to the inpatient rehab unit. We will await further recommendations from the process planner. Guardianship is being worked up for this patient and his grandmother may take guardianship for him. She however didn't does not want him to live with her. Patient may need placement into [facility] home. Patient may require placement in to alf facility or subacute rehab. We will continue close neurological follow-up for the patient during this admission. His neurological examination remains stable. His overall prognosis at this time remains very guarded.
[2017-08-15] MEDS: HEPARIN SODIUM,PORCINE 5,000 UNIT/ML 1 ML VIAL SQ SCH ×3 (00:29→19:40)
[2017-08-15] MEDS: SODIUM CHLORIDE 0.9% 1,000 ML IV SCH ×3 (03:48→23:03)
[2017-08-15] MEDS: ACETAMINOPHEN TAB 325 MG TAB PO PRN (05:18)
[2017-08-15] MEDS: PANTOPRAZOLE 40 MG TABLET PO SCH (08:06)
[2017-08-15] MEDS: NYSTATIN 100,000 UNIT/ML SUSP 500,000 UNIT/5 ML CUP PO SCH ×4 (08:06→19:39)
[2017-08-15] MEDS: IBUPROFEN 400 MG TAB PO PRN (08:10)
[2017-08-15 09:27] LABS: Basophils # (A) 0.1 k/uL (0-0.2); Basophils % (A) 1 %; Eosinophils # (A) 0.2 k/uL (0-0.7); Eosinophils % (A) 3 %; HCT 35.6 % (39.0-53.0); HGB 11.9 gm/dL (13.0-17.5); Lymphocytes # (A) 1.5 k/uL (1.0-4.8); Lymphocytes % (A) 27 %; MCH 30.5 pg (25.0-35.0); MCHC 33.5 g/dL (31.0-37.0); MCV 90.9 fL (80.0-100.0); Mean Platelet Volume 8.9; Monocytes # (A) 0.5 k/uL (0-1.0); Monocytes % (A) 8 %; Neutrophils # (A) 3.4 k/uL (1.3-7.7); Neutrophils % (A) 59 %; Platelet Count 194 k/uL (150-450); RBC 3.91 m/uL (4.30-5.90); RDW 13.5 % (11.5-15.5); WBC 5.7 k/uL (3.8-10.6)
[2017-08-15] MEDS: MELATONIN 5 MG TABLET PO SCH (19:40)
--- NOTE | 2017-08-15 20:14 | PN ---
PROGRESS NOTE DATE OF SERVICE: 08/15/2017. INTERVAL HISTORY: This 27-year-old gentleman who was admitted with HIV encephalopathy, also had significant gait dysfunction also. The patient is awaiting placement at this time. The patient was seen by Neurology and as well as Infectious Disease and the social service assistant is following the patient closely at this time. No chest pain. No palpitations. No fever. EXAM: Alert and oriented x3. Pulse 74, pressure 130/74, respiration 18, temperature 98.2, pulse ox 98% room air. HEENT: Conjunctivae normal. NECK: No jugular venous distention. CARDIOVASCULAR: S1, S2. RESPIRATORY: Breath sounds diminished in the bases. A few scattered rhonchi. No crackles. ABDOMEN: Soft. NERVOUS SYSTEM: No focal deficits. LABS: CBC within normal limits. Glucose 105. is less than 500 in the serum. ASSESSMENT: 1. Human immunodeficiency virus encephalopathy. 2. 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 3. Second-degree heart block Mobitz type 1. 4. Gait dysfunction. 5. Deep venous thrombosis prophylaxis. 6. Anemia of chronic disease. 7. Increased random blood sugar. RECOMMENDATION AND DISCUSSION: In this 27-year-old gentleman who presented with multiple complex medical issues , will monitor the patient closely. Continue the current management and symptomatic treatment. Continue PT, OT evaluation. Currently patient evaluated by Neurology and as well as Infectious Disease and further placement and discharge planning by Operations Advisor and Case Management team. Prognosis guarded. Further recommendations to follow. MMODL / IJN: [id number] / MTDD
--- NOTE | 2017-08-15 20:40 | P.PN ---
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 Patient was diagnosed with HIV in 2008 but has never sought medical treatment. His grandmother has been frustrated with him as she had been suggesting he should be on medication and treated. Patient was admitted to Hospital on 08/05/2017 for bilateral leg weakness and increased confusion. His clinical history suggests he has some degree of HIV encephalopathy causing mental status changes. He underwent an MRI of the brain and lumbar spine results of which have been noted. MRI of the brain failed to reveal any enhancing lesions. There was diffuse white matter changes noted throughout the brain suggesting possibility of PML. This was discussed with Dr. Miranda from infectious disease and we have ordered a ROEL Virus test for this patient by PCR for further evaluation of PML. This will be ordered by Dr. Miranda and will await these results. The patient patient also underwent a lumbar puncture the results of which have been noted. His spinal fluid came back negative for VDRL. As noted he was started on antiretrovirals therapy by Dr. Miranda which hopefully should help his overall condition. Patient states he is been doing about the same and complains of pain in the legs at times. 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 Patient is awaiting transferred to rehab for further PT OT treatment and evaluation. The patient states he was able to sit up in the chair yesterday. He was able to sit up in the chair once again today for 1 hour. He is ambulating with the use of his walker. He has been ambulating with the use of his walker. Overall his neurological status has remained stable. We will continue to follow the patient closely with Dr. Miranda and await any further recommendations from him. Patient was seen today by Dr. Lewis for possible inpatient rehab placement. The patient seems to be very resistant to being placed in the inpatient rehab unit at [facility] at this time. We will await further recommendations from discharge planning for placement for this patient. Patient may need to be considered for a AFC home. Patient's grandmother is willing to take guardianship for the patient but does not want patient to live with her. Patient may need public guardian. When the patient was questioned today about placement he states there are plans being made for him to possibly discharge to a AFC home. We'll await further recommendations from inventory control planner. He has been started on treatment for his HIV. He is on Stribilld which will be available via ADAP program. Patient's neurological examination remains unchanged. Would continue current treatment plans. This patient's overall prognosis at this time remains very guarded. Objective - Vital Signs Vital signs: Vital Signs Temp 98.9 F 08/15/17 15:00 Pulse 74 08/15/17 15:00 Resp 16 08/15/17 15:30 BP 138/76 08/15/17 15:00 Pulse Ox 98 08/15/17 15:00 Intake & Output 08/15/17 08/15/17 08/16/17 06:59 18:59 06:59 Intake Total 1450 640 Output Total 0 Balance 1450 640 Weight 92.8 kg Intake: Oral 1450 640 Output: Stool 0 Other: Voiding Method Diaper Diaper Incontinent Incontinent # Voids 2 6 # Bowel Movements 0 - Exam physical examination: PHYSICAL EXAMINATION: Patient is resting comfortably in bed. VITAL SIGNS: Blood pressure is [138/76] Heart rate is [75]. Respiration is [18] . Temperature is [98.7]. HEENT: Head is atraumatic, neck is supple, there were no carotid bruits. CHEST: Lungs are clear to auscultation and percussion. CARDIAC: S1, S2 normal rate and rhythm. There is no murmur. ABDOMEN: Soft and nontender. Bowel sounds are present. EXTREMITIES: There is no pedal edema. Peripheral pulses are present. Neurological examination: This patient's neurological examination is unchanged from yesterday. He is more awake and alert today and is following simple commands. His memory and intellectual functions are impaired. Continues to complain of leg weakness off and on. Patient was able to ambulate with the use of his walker. He was able to sit up in the chair today. 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 Patient is being followed closely by Dr. Miranda from infectious disease. He was initially diagnosed with his HIV in 2008 but is not been treated for this condition over the years. He was just started on retroviral therapy by Dr. Miranda yesterday. He will require long-term treatment to see if this affects his overall HIV status. As noted yesterday he is also being considered for possibility of PML. His spinal fluid is been sent for ROEL Virus analysis by PCR. This may take weeks to return from the laboratory. We will continue working with him in terms of his HIV encephalopathy and leg weakness. He has been able to ambulate today in his room with the use of his walker. There is been no significant change in his overall neurological status. Would recommend consultation with Dr. Lewis for possible subacute rehab. The patient was evaluated by Dr. Lewis. Apparently the patient is very resistant to go to the inpatient rehab unit. We will await further recommendations from the inventory control planner. Guardianship is being worked up for this patient and his grandmother may take guardianship for him. She however didn't does not want him to live with her. Patient may need placement into [facility] home. Patient continues to have bilateral lower extremity weakness. He will benefit from ongoing subacute rehab at the time of discharge. We are waiting further recommendations from the inventory control planner in terms of arranging for placement and ongoing therapy. Patient may require placement in to [facility] facility or subacute rehab. We will continue close neurological follow-up for the patient during this admission. His neurological examination remains stable. His overall prognosis at this time remains very guarded.
--- NOTE | 2017-08-16 00:28 | P.PN ---
Subjective Progress Note Date: 08/15/17 Principal diagnosis: weakness This is a 27-year-old Afro-[place] male who had a recent hospitalization on 05/2017 at which time he presented with bilateral lower extremity weakness and broad-based gait. Been progressively getting worse for 2 months. He underwent a CT of the brain showed no acute intracranial process or abnormal intracranial enhancement. Cerebral atrophy is advanced for patient's age. 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 T suppressor cells 680, percentage of seat T4 helper 14, absolute CD4 helper 149, CD4/CD8 ratio 0.2 , percentage of CD8 suppressor 65. Patient up signing himself out AGAINST MEDICAL ADVICE. He was to follow-up with Dr. Miranda but did not do so. Patient has history of HIV that was diagnosed in 2008 but he has never sought treatment and has not been on any retro-antiviral medication for this. Patient presented back to [facility] emergency center on August 01 with complaints of bilateral lower extremity pain and muscle aches. Patient complains of feeling pain all over his body. He has an exaggerated response to light palpation. He has difficulty rolling in his bed due to pain. Patient denies having any cough, shortness of breath, fever, chills. He had a chest x- ray that showed possible new right upper lobe infiltrate. Lumbar spine was normal. Patient was given cefepime and Diflucan and Levaquin in the emergency center and continued on vancomycin. She was admitted to the selective care unit and there is a consult in place with cardiology for second degree AV block and with Dr. Bentley for lower extremity weakness. 08/05/2017 patient is doing somewhat better today. 08/05/2017 patient is feeling somewhat better today. He is undergoing a lumbar puncture is an MRI of his spine. He is to be a bit anxious but wanted to go home. He however is denying any new acute difficulties. Leg weakness continues in able to ambulate a few steps. 08/06/2017 patient feeling better but still weak and able to stand and take a few steps only. 08/07/2017 patient feels about the same. Continues to have lower extremity weakness and only able to and related few steps. He has been seen by psychiatry and there is no notation of incompetence. The patient likely will go to extended care to recieve rehab. Unclear rate of improvement once he begins antiretroviral therapy. The CSF VDRL is negative, no evidence of neurosyphilis at this time. 08/08/2017 patient is sitting up eating food that his grandmother has brought. The social situation remains difficult in that he does not have a specific location to be able to go to, he had been living with his mother but she appears to not wanting to live with her at this time. Likely will go to rehab. The case was again discussed with the neurologist. 08/10/2017 remains stable awaits rehab 08/12/2017and changes the patient remains weak. His been evaluated by rehabilitation and seems to be a poorly motivated candidate. 08/13/2017 little change SW is attempting placement but is not yet successful. No complaints related to the new HIV therapy. 08/15/2017 case discussed with the grandmother, she brings a list of ECF to go over, concerned that the SW has not been through. I assure her they are trying , and if she is so concerned why cannot the grandson come to live with her? she wants to know how long patient has been non compliant with medication because till recently was working, I relate he had AIDS by criteria and has been ill for years but now decompensated. Objective - Vital Signs Vital signs: Vital Signs Temp 99.2 F 08/15/17 23:00 Pulse 82 08/15/17 23:00 Resp 17 08/15/17 23:00 BP 129/83 08/15/17 23:00 Pulse Ox 97 08/15/17 23:00 Intake & Output 08/15/17 08/15/17 08/16/17 06:59 18:59 06:59 Intake Total 1450 640 Output Total 0 0 Balance 1450 640 0 Weight 92.8 kg 92.8 kg Intake: Oral 1450 640 Output: Stool 0 0 Other: Voiding Method Diaper Diaper Diaper Incontinent Incontinent Incontinent # Voids 2 6 3 # Bowel Movements 0 1 - Exam Gen: This is a 27-year-old -[place] male. He is in bed and appears to be comfortable. Much less pain and has some anxiety HEENT: Head is atraumatic, normocephalic. Pupils equal, round. Sclerae is anicteric. Conjunctiva pink. Mucous members of the mouth are moist. No thrush noted. NECK: Supple. No JVD. No lymphadenopathy. No thyromegaly. LUNGS: Clear to auscultation. No wheezes or rhonchi. No intercostal retractions. HEART: Regular rate and rhythm. No murmur. ABDOMEN: Soft. Bowel sounds are present. No masses. No tenderness. EXTREMITIES: No pedal edema. No calf tenderness.was able to stand but only for a few seconds. NEUROLOGICAL: Patient is awake, alert and Patient able to answer questions, but has childlike behavior with no previous diagnosis of intellectual disability. - Labs CBC & Chem 7: 08/15/17 09:02 08/14/17 08:59 Labs: Abnormal Lab Results - Last 24 Hours (Table) 08/15/17 Range/Units 09: RBC 3.91 L (4.30-5.90) m/uL Hgb 11.9 L (13.0-17.5) gm/dL Hct 35.6 L (39.0-53.0) % Laboratory Results WBC 5.7 k/uL (3.8-10.6) 08/15/17 09: RBC 3.91 m/uL (4.30-5.90) L 08/15/17 09:02 Hgb 11.9 gm/dL (13.0-17.5) L 08/15/17 09:02 Hct 35.6 % (39.0-53.0) L 08/15/17 09:02 MCV 90.9 fL (80.0-100.0) 08/15/17 09:02 MCH 30.5 pg (25.0-35.0) 08/15/17 09: MCHC 33.5 g/dL (31.0-37.0) 08/15/17 09:02 RDW 13.5 % (11.5-15.5) 08/15/17 09:02 Plt Count 194 k/uL (150-450) 08/15/17 09:02 Neutrophils % 59 % 08/15/17 09:02 Neutrophils % (Manual) 40 % 08/07/17 05:50 Band Neutrophils % 4 % 08/07/17 05:50 Lymphocytes % 27 % 08/15/17 09:02 Lymphocytes % (Manual) 39 % 08/07/17 05:50 Monocytes % 8 % 08/15/17 09:02 Monocytes % (Manual) 13 % 08/07/17 05:50 Eosinophils % 3 % 08/15/17 09:02 Eosinophils % (Manual) 4 % 08/07/17 05:50 Basophils % 1 % 08/15/17 09:02 Neutrophils # 3.4 k/uL (1.3-7.7) 08/15/17 09:02 Neutrophils # (Manual) 1.30 k/uL (1.3-7.7) 08/07/17 05:50 Lymphocytes # 1.5 k/uL (1.0-4.8) 08/15/17 09:02 Lymphocytes # (Manual) 1.21 k/uL (1.0-4.8) 08/07/17 05:50 Monocytes # 0.5 k/uL (0-1.0) 08/15/17 09:02 Monocytes # (Manual) 0.40 k/uL (0-1.0) 08/07/17 05:50 Eosinophils # 0.2 k/uL (0-0.7) 08/15/17 09:02 Eosinophils # (Manual) 0.12 k/uL (0-0.7) 08/07/17 05:50 Basophils # 0.1 k/uL (0-0.2) 08/15/17 09:02 Nucleated RBCs 0 /100 WBC (0-0) 08/07/17 05:50 Manual Slide Review Performed 08/07/17 05:50 Large Platelets Present 08/07/17 05:50 RBC Morphology Normal 08/06/17 05:49 Anisocytosis Slight 08/07/17 05:50 PT 9.8 sec (9.0-12.0) 08/01/17 20:05 INR 1.0 (<1.2) 08/01/17 20:05 APTT 25.2 sec (22.0-30.0) 08/01/17 20:05 Sodium 144 mmol/L (137-145) 08/14/17 08:59 Potassium 4.2 mmol/L (3.5-5.1) 08/14/17 08:59 Chloride 102 mmol/L (98-107) 08/14/17 08:59 Carbon Dioxide 28 mmol/L (22-30) 08/14/17 08:59 Anion Gap 14 mmol/L 08/14/17 08:59 BUN 15 mg/dL (9-20) 08/14/17 08:59 Creatinine 1.06 mg/dL (0.66-1.25) 08/14/17 08:59 Est GFR (CKD-EPI)AfAm >90 (>60 ml/min/1.73 sqM) 08/14/17 08:59 Est GFR (CKD-EPI)NonAf >90 (>60 ml/min/1.73 sqM) 08/14/17 08:59 Glucose 105 mg/dL (74-99) H 08/14/17 08:59 Plasma Lactic Acid Ignacio 0.9 mmol/L (0.7-2.0) 08/01/17 20:43 Calcium 9.1 mg/dL (8.4-10.2) 08/14/17 08:59 Magnesium 1.9 mg/dL (1.6-2.3) 08/02/17 06:30 Total Bilirubin 0.5 mg/dL (0.2-1.3) 08/01/17 20:05 AST 58 U/L (17-59) 08/01/17 20:05 ALT 54 U/L (21-72) 08/01/17 20:05 Alkaline Phosphatase 141 U/L (38-126) H 08/01/17 20:05 Creatine Kinase 50 U/L (55-170) L 08/01/17 20:05 Total Protein 7.5 g/dL (6.3-8.2) 08/01/17 20:05 Albumin 3.6 g/dL (3.5-5.0) 08/01/17 20:05 TSH 1.320 mIU/L (0.465-4.680) 08/02/17 06:30 Free T4 0.90 ng/dL (0.78-2.19) 08/02/17 06:30 Urine Color Yellow 08/02/17 00:30 Urine Appearance Clear (Clear) 08/02/17 00:30 Urine pH 5.5 (5.0-8.0) 08/02/17 00:30 Ur Specific [place] 1.012 (1.001-1.035) 08/02/17 00:30 Urine Protein Negative (Negative) 08/02/17 00:30 Urine Glucose (UA) Negative (Negative) 08/02/17 00:30 Urine Ketones Negative (Negative) 08/02/17 00:30 Urine Blood Negative (Negative) 08/02/17 00:30 Urine Nitrite Negative (Negative) 08/02/17 00:30 Urine Bilirubin Negative (Negative) 08/02/17 00:30 Urine Urobilinogen <2.0 mg/dL (<2.0) 08/02/17 00:30 Ur Leukocyte Esterase Negative (Negative) 08/02/17 00:30 CSF Tube Number 4 08/05/17 15:10 CSF Volume 2 08/05/17 15:10 CSF Appearance Clear 08/05/17 15:10 CSF Color Colorless 08/05/17 15:10 CSF RBC 460 u/L (0-10) H 08/05/17 15:10 CSF Tot Nucleated Cells 7 u/L (0-5) H 08/05/17 15:10 CSF Crenated Cells 0 % 08/05/17 15:10 CSF Fresh RBCs 100 % 08/05/17 15:10 CSF Glucose 48 mg/dL (40-70) 08/05/17 15:10 CSF Total Protein 70 mg/dL (12-60) H 08/05/17 15:10 CSF VDRL Titer TNP 08/05/17 15:10 CSF VDRL Nonreactive (Nonreactive) 08/05/17 15:10 RPR Non-Reactive 08/02/17 15:19 Treponema pallidum Ab Reactive (Non-Reactive) H 08/02/17 15:19 HIV-1 RNA Quant 2,120,855 Copies/mL (<40) H 08/02/17 15:19 HIV RNA logcopies/mL Ult 6.33 (<1.60) H 08/02/17 15:19 HIV-1 RNA (PCR) DETECTED (Not detected) H 08/02/17 15:19 Miscellaneous Test ROEL POLYOMA VIRUS 08/07/17 05:50 Misc Test Result See Comment 08/07/17 05:50 Microbiology 08/01/17 20:05 Blood Blood Culture - Final No Growth after 144 hours Assessment and Plan (1) HIV (human immunodeficiency virus infection) Current Visit: Yes Status: Acute Code(s): B20 - HUMAN IMMUNODEFICIENCY VIRUS [HIV] DISEASE SNOMED Code(s): 11620000 (2) HIV encephalopathy Narrative/Plan: 27-year-old male who has a known history of HIV and by his low CD4 count Ades has not been under therapy. He now presents with some neurological complaints especially of weakness. The patient also seems to have difficulties with his mentation. Concern at this point and will b.at risk for opportunistic infection as well as lymphoma. Neurology will evaluate and lumbar puncture is being requested ensuring that VDRL of the CSF is also obtained. The patient has a low CD4 count we've asked for a viral load as well as a genotype so we may be able to initiate antiviral therapy. This will be a challenge while he is hospitalized. the patient does agree to treatment for HIV therapy once possible. With his current mental status patient is difficult to evaluate but is able to state on going leg weakness. CSF VDRL is pending 08/06/2017 finds the patient to be somewhat anxious as he has been. Today he was able to stand although he prefilled briefly and take a few steps. The patient's psychosocial situation is gotten very difficult. His mother has gone out of town and has voiced to case management that she does not want him to come live with her. The patient's grandmother is involved in determining if that is an psychiatric evaluation for competence has been requested. We have asked for the grandmother to brain picker his HIV medications and bring them here so we may start pending his discharge soon. The patient is somewhat anxious about his discharge to home although certainly that is currently in process of being determined. option for a living situation at discharge. Social workers been consulted trying to determine if he will need some type of placement. 08/07/2017 patient is more restful today. It is related that he is able to stand and take just a few steps. Has significant weakness. Case is discussed with the neurologist. With initiation of antiretroviral therapy should be some improvement of his underlying HIV encephalopathy. The rate of improvement and extent of improvement is difficult to travel manager at this time. will follow up in the office within 4 weeks of discharge with some follow-up blood work to make sure he is improving and responding to therapy. 08/08/2017 patient is without acute new changes. Eating some food his grandmother brought him without difficulties. Currently working towards placement to receive his therapy to try to improve his strength from his underlying HIV encephalopathy and possible spinal cord involvement. We'll request ROEL virus testing upon discussion with the neurologist. 08/09/2017 patient without acute changes, He however is eating a bit better today.no other new acute complaints. Testing is pending and is being treated for HIV encephalopathy with anti-retroviral therapy and Will go to rehab after discharge. 08/17/2017 patient with little change currently attempting to have discharge plan to rehab but is not going well, grandmother willing to be guardian but does not want patient to live with her. May need public guardian. Stribild will be available via ADAP program 08/15/2017 patient with little change, discharge plan remains a challenge but working with grandmother who will become guardian.Continue Stribild f/u in office in 4 weeks Current Visit: Yes Status: Acute Code(s): B20 - HUMAN IMMUNODEFICIENCY VIRUS [HIV] DISEASE; G93.40 - ENCEPHALOPATHY, UNSPECIFIED SNOMED Code(s): 910141919
[2017-08-16] MEDS: PANTOPRAZOLE 40 MG TABLET PO SCH (07:51)
[2017-08-16] MEDS: HEPARIN SODIUM,PORCINE 5,000 UNIT/ML 1 ML VIAL SQ SCH (07:52)
[2017-08-16] MEDS: SODIUM CHLORIDE 0.9% 1,000 ML IV SCH (07:52)
[2017-08-16] MEDS: NYSTATIN 100,000 UNIT/ML SUSP 500,000 UNIT/5 ML CUP PO SCH ×2 (07:52→14:22)
[2017-08-16] MEDS: IBUPROFEN 400 MG TAB PO PRN (07:54)
[2017-08-16 08:24] LABS: Basophils # (A) 0.1 k/uL (0-0.2); Basophils % (A) 1 %; Eosinophils # (A) 0.2 k/uL (0-0.7); Eosinophils % (A) 3 %; HCT 33.7 % (39.0-53.0); HGB 11.5 gm/dL (13.0-17.5); Lymphocytes # (A) 1.3 k/uL (1.0-4.8); Lymphocytes % (A) 28 %; MCH 30.5 pg (25.0-35.0); MCHC 34.2 g/dL (31.0-37.0); MCV 89.3 fL (80.0-100.0); Mean Platelet Volume 8.2; Monocytes # (A) 0.4 k/uL (0-1.0); Monocytes % (A) 9 %; Neutrophils # (A) 2.8 k/uL (1.3-7.7); Neutrophils % (A) 57 %; Platelet Count 219 k/uL (150-450); RBC 3.77 m/uL (4.30-5.90); RDW 13.7 % (11.5-15.5); WBC 4.9 k/uL (3.8-10.6)
[2017-08-16] MEDS: ACETAMINOPHEN TAB 325 MG TAB PO PRN (14:54)
--- NOTE | 2017-08-16 15:25 | P.PN ---
Subjective Progress Note Date: 08/16/17 Principal diagnosis: weakness This is a 27-year-old Afro-[place] African male who had a recent hospitalization on 05/2017 at which time he presented with bilateral lower extremity weakness and broad-based gait. Been progressively getting worse for 2 months. He underwent a CT of the brain showed no acute intracranial process or abnormal intracranial enhancement. Cerebral atrophy is advanced for patient's age. 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 T suppressor cells 680, percentage of seat T4 helper 14, absolute CD4 helper 149, CD4/CD8 ratio 0.2 , percentage of CD8 suppressor 65. Patient up signing himself out AGAINST MEDICAL ADVICE. He was to follow-up with Dr. Miranda but did not do so. Patient has history of HIV that was diagnosed in 2008 but he has never sought treatment and has not been on any retro-antiviral medication for this. Patient presented back to [facility] emergency center on August 01 with complaints of bilateral lower extremity pain and muscle aches. Patient complains of feeling pain all over his body. He has an exaggerated response to light palpation. He has difficulty rolling in his bed due to pain. Patient denies having any cough, shortness of breath, fever, chills. He had a chest x- ray that showed possible new right upper lobe infiltrate. Lumbar spine was normal. Patient was given cefepime and Diflucan and Levaquin in the emergency center and continued on vancomycin. She was admitted to the selective care unit and there is a consult in place with cardiology for second degree AV block and with Dr. Bentley for lower extremity weakness. 08/05/2017 patient is doing somewhat better today. 08/05/2017 patient is feeling somewhat better today. He is undergoing a lumbar puncture is an MRI of his spine. He is to be a bit anxious but wanted to go home. He however is denying any new acute difficulties. Leg weakness continues in able to ambulate a few steps. 08/06/2017 patient feeling better but still weak and able to stand and take a few steps only. 08/07/2017 patient feels about the same. Continues to have lower extremity weakness and only able to and related few steps. He has been seen by psychiatry and there is no notation of incompetence. The patient likely will go to extended care to recieve rehab. Unclear rate of improvement once he begins antiretroviral therapy. The CSF VDRL is negative, no evidence of neurosyphilis at this time. 08/08/2017 patient is sitting up eating food that his grandmother has brought. The social situation remains difficult in that he does not have a specific location to be able to go to, he had been living with his mother but she appears to not wanting to live with her at this time. Likely will go to rehab. The case was again discussed with the neurologist. 08/10/2017 remains stable awaits rehab 08/12/2017and changes the patient remains weak. His been evaluated by rehabilitation and seems to be a poorly motivated candidate. 08/13/2017 little change SW is attempting placement but is not yet successful. No complaints related to the new HIV therapy. 08/15/2017 case discussed with the grandmother, she brings a list of ECF to go over, concerned that the SW has not been through. I assure her they are trying , and if she is so concerned why cannot the grandson come to live with her? she wants to know how long patient has been non compliant with medication because till recently was working, I relate he had AIDS by criteria and has been ill for years but now decompensated. 08/16/2017 patient is sitting upright has had the lungs grandmother has brought him. His mentation is a bit more clear. Is related that with a walker she's been able to navigate to the bathroom. He voices no other new acute complaints. Her mother understands that there are multiple factors at play and going home with his mother is the only current available option. Objective - Vital Signs Vital signs: Vital Signs Temp 99.0 F 08/16/17 07:00 Pulse 77 08/16/17 07:00 Resp 16 08/16/17 08:00 BP 120/72 08/16/17 07:00 Pulse Ox 97 08/16/17 07:00 Intake & Output 08/15/17 08/16/17 08/16/17 18:59 06:59 18:59 Intake Total 640 Output Total 0 Balance 640 0 Weight 92.8 kg Intake: Oral 640 Output: Stool 0 Other: Voiding Method Diaper Diaper Diaper Incontinent Incontinent Incontinent # Voids 6 5 # Bowel Movements 0 1 - Exam Gen: This is a 27-year-old -[place] male. He is in bed and appears to be comfortable. Much less pain and has some anxiety HEENT: Head is atraumatic, normocephalic. Pupils equal, round. Sclerae is anicteric. Conjunctiva pink. Mucous members of the mouth are moist. No thrush noted. NECK: Supple. No JVD. No lymphadenopathy. No thyromegaly. LUNGS: Clear to auscultation. No wheezes or rhonchi. No intercostal retractions. HEART: Regular rate and rhythm. No murmur. ABDOMEN: Soft. Bowel sounds are present. No masses. No tenderness. EXTREMITIES: No pedal edema. No calf tenderness.was able to stand but only for a few seconds. NEUROLOGICAL: Patient is awake, alert and is able to ambulate to the restroom with a walker - Labs CBC & Chem 7: 08/16/17 07:32 08/14/17 08:59 Labs: Abnormal Lab Results - Last 24 Hours (Table) 08/16/17 Range/Units 07:32 RBC 3.77 L (4.30-5.90) m/uL Hgb 11.5 L (13.0-17.5) gm/dL Hct 33.7 L (39.0-53.0) % Laboratory Results WBC 4.9 k/uL (3.8-10.6) 08/16/17 07:32 RBC 3.77 m/uL (4.30-5.90) L 08/16/17 07:32 Hgb 11.5 gm/dL (13.0-17.5) L 08/16/17 07:32 Hct 33.7 % (39.0-53.0) L 08/16/17 07:32 MCV 89.3 fL (80.0-100.0) 08/16/17 07:32 MCH 30.5 pg (25.0-35.0) 08/16/17 07:32 MCHC 34.2 g/dL (31.0-37.0) 08/16/17 07:32 RDW 13.7 % (11.5-15.5) 08/16/17 07:32 Plt Count 219 k/uL (150-450) 08/16/17 07:32 Neutrophils % 57 % 08/16/17 07:32 Neutrophils % (Manual) 40 % 08/07/17 05:50 Band Neutrophils % 4 % 08/07/17 05:50 Lymphocytes % 28 % 08/16/17 07:32 Lymphocytes % (Manual) 39 % 08/07/17 05:50 Monocytes % 9 % 08/16/17 07:32 Monocytes % (Manual) 13 % 08/07/17 05:50 Eosinophils % 3 % 08/16/17 07:32 Eosinophils % (Manual) 4 % 08/07/17 05:50 Basophils % 1 % 08/16/17 07:32 Neutrophils # 2.8 k/uL (1.3-7.7) 08/16/17 07:32 Neutrophils # (Manual) 1.30 k/uL (1.3-7.7) 08/07/17 05:50 Lymphocytes # 1.3 k/uL (1.0-4.8) 08/16/17 07:32 Lymphocytes # (Manual) 1.21 k/uL (1.0-4.8) 08/07/17 05:50 Monocytes # 0.4 k/uL (0-1.0) 08/16/17 07:32 Monocytes # (Manual) 0.40 k/uL (0-1.0) 08/07/17 05:50 Eosinophils # 0.2 k/uL (0-0.7) 08/16/17 07:32 Eosinophils # (Manual) 0.12 k/uL (0-0.7) 08/07/17 05:50 Basophils # 0.1 k/uL (0-0.2) 08/16/17 07:32 Nucleated RBCs 0 /100 WBC (0-0) 08/07/17 05:50 Manual Slide Review Performed 08/07/17 05:50 Large Platelets Present 08/07/17 05:50 RBC Morphology Normal 08/06/17 05:49 Anisocytosis Slight 08/07/17 05:50 PT 9.8 sec (9.0-12.0) 08/01/17 20:05 INR 1.0 (<1.2) 08/01/17 20:05 APTT 25.2 sec (22.0-30.0) 08/01/17 20:05 Sodium 144 mmol/L (137-145) 08/14/17 08:59 Potassium 4.2 mmol/L (3.5-5.1) 08/14/17 08:59 Chloride 102 mmol/L (98-107) 08/14/17 08:59 Carbon Dioxide 28 mmol/L (22-30) 08/14/17 08:59 Anion Gap 14 mmol/L 08/14/17 08:59 BUN 15 mg/dL (9-20) 08/14/17 08:59 Creatinine 1.06 mg/dL (0.66-1.25) 08/14/17 08:59 Est GFR (CKD-EPI)AfAm >90 (>60 ml/min/1.73 sqM) 08/14/17 08:59 Est GFR (CKD-EPI)NonAf >90 (>60 ml/min/1.73 sqM) 08/14/17 08:59 Glucose 105 mg/dL (74-99) H 08/14/17 08:59 Plasma Lactic Acid Ignacio 0.9 mmol/L (0.7-2.0) 08/01/17 20:43 Calcium 9.1 mg/dL (8.4-10.2) 08/14/17 08:59 Magnesium 1.9 mg/dL (1.6-2.3) 08/02/17 06:30 Total Bilirubin 0.5 mg/dL (0.2-1.3) 08/01/17 20:05 AST 58 U/L (17-59) 08/01/17 20:05 ALT 54 U/L (21-72) 08/01/17 20:05 Alkaline Phosphatase 141 U/L (38-126) H 08/01/17 20:05 Creatine Kinase 50 U/L (55-170) L 08/01/17 20:05 Total Protein 7.5 g/dL (6.3-8.2) 08/01/17 20:05 Albumin 3.6 g/dL (3.5-5.0) 08/01/17 20:05 TSH 1.320 mIU/L (0.465-4.680) 08/02/17 06:30 Free T4 0.90 ng/dL (0.78-2.19) 08/02/17 06:30 Urine Color Yellow 08/02/17 00:30 Urine Appearance Clear (Clear) 08/02/17 00:30 Urine pH 5.5 (5.0-8.0) 08/02/17 00:30 Ur Specific Mar[place] 1.012 (1.001-1.035) 08/02/17 00:30 Urine Protein Negative (Negative) 08/02/17 00:30 Urine Glucose (UA) Negative (Negative) 08/02/17 00:30 Urine Ketones Negative (Negative) 08/02/17 00:30 Urine Blood Negative (Negative) 08/02/17 00:30 Urine Nitrite Negative (Negative) 08/02/17 00:30 Urine Bilirubin Negative (Negative) 08/02/17 00:30 Urine Urobilinogen <2.0 mg/dL (<2.0) 08/02/17 00:30 Ur Leukocyte Esterase Negative (Negative) 08/02/17 00:30 CSF Tube Number 4 08/05/17 15:10 CSF Volume 2 08/05/17 15:10 CSF Appearance Clear 08/05/17 15:10 CSF Color Colorless 08/05/17 15:10 CSF RBC 460 u/L (0-10) H 08/05/17 15:10 CSF Tot Nucleated Cells 7 u/L (0-5) H 08/05/17 15:10 CSF Crenated Cells 0 % 08/05/17 15:10 CSF Fresh RBCs 100 % 08/05/17 15:10 CSF Glucose 48 mg/dL (40-70) 08/05/17 15:10 CSF Total Protein 70 mg/dL (12-60) H 08/05/17 15:10 CSF VDRL Titer TNP 08/05/17 15:10 CSF VDRL Nonreactive (Nonreactive) 08/05/17 15:10 RPR Non-Reactive 08/02/17 15:19 Treponema pallidum Ab Reactive (Non-Reactive) H 08/02/17 15:19 HIV-1 RNA Quant 2,120,855 Copies/mL (<40) H 08/02/17 15:19 HIV RNA logcopies/mL Ult 6.33 (<1.60) H 08/02/17 15:19 HIV-1 RNA (PCR) DETECTED (Not detected) H 08/02/17 15:19 Miscellaneous Test ROEL POLYOMA VIRUS 08/07/17 05:50 Misc Test Result See Comment 08/07/17 05:50 Microbiology 08/01/17 20:05 Blood Blood Culture - Final No Growth after 144 hours Assessment and Plan (1) HIV (human immunodeficiency virus infection) Current Visit: Yes Status: Acute Code(s): B20 - HUMAN IMMUNODEFICIENCY VIRUS [HIV] DISEASE SNOMED Code(s): 74305197 (2) HIV encephalopathy Narrative/Plan: 27-year-old male who has a known history of HIV and by his low CD4 count Ades has not been under therapy. He now presents with some neurological complaints especially of weakness. The patient also seems to have difficulties with his mentation. Concern at this point and will b.at risk for opportunistic infection as well as lymphoma. Neurology will evaluate and lumbar puncture is being requested ensuring that VDRL of the CSF is also obtained. The patient has a low CD4 count we've asked for a viral load as well as a genotype so we may be able to initiate antiviral therapy. This will be a challenge while he is hospitalized. the patient does agree to treatment for HIV therapy once possible. With his current mental status patient is difficult to evaluate but is able to state on going leg weakness. CSF VDRL is pending 08/06/2017 finds the patient to be somewhat anxious as he has been. Today he was able to stand although he prefilled briefly and take a few steps. The patient's psychosocial situation is gotten very difficult. His mother has gone out of town and has voiced to case management that she does not want him to come live with her. The patient's grandmother is involved in determining if that is an psychiatric evaluation for competence has been requested. We have asked for the grandmother to warehouse picker his HIV medications and bring them here so we may start pending his discharge soon. The patient is somewhat anxious about his discharge to home although certainly that is currently in process of being determined. option for a living situation at discharge. Social workers been consulted trying to determine if he will need some type of placement. 08/07/2017 patient is more restful today. It is related that he is able to stand and take just a few steps. Has significant weakness. Case is discussed with the neurologist. With initiation of antiretroviral therapy should be some improvement of his underlying HIV encephalopathy. The rate of improvement and extent of improvement is difficult to immigration judge at this time. will follow up in the office within 4 weeks of discharge with some follow-up blood work to make sure he is improving and responding to therapy. 08/08/2017 patient is without acute new changes. Eating some food his grandmother brought him without difficulties. Currently working towards placement to receive his therapy to try to improve his strength from his underlying HIV encephalopathy and possible spinal cord involvement. We'll request ROEL virus testing upon discussion with the neurologist. 08/09/2017 patient without acute changes, He however is eating a bit better today.no other new acute complaints. Testing is pending and is being treated for HIV encephalopathy with anti-retroviral therapy and Will go to rehab after discharge. 08/17/2017 patient with little change currently attempting to have discharge plan to rehab but is not going well, grandmother willing to be guardian but does not want patient to live with her. May need public guardian. Stribild will be available via [facility] program 08/15/2017 patient with little change, discharge plan remains a challenge but working with grandmother who will become guardian.Continue Stribild f/u in office in 4 weeks 08/16/2017 the patient has had some slight improvement in overall status. He will remain on the stribild as before and hopefully with time his extensive HIV encephalopathy will improve likely will be discharged home soon with his medication and follow-up in the office to ensure that he has access to his many resources as possible regarding his HIV and AIDS. Current Visit: Yes Status: Acute Code(s): B20 - HUMAN IMMUNODEFICIENCY VIRUS [HIV] DISEASE; G93.40 - ENCEPHALOPATHY, UNSPECIFIED SNOMED Code(s): 986563200
[2017-08-16 15:28] VITALS: BP 127/75; PULSE 91; RESP 18; TEMP 98.1
--- NOTE | 2017-08-16 16:15 | DS ---
DISCHARGE SUMMARY FINAL DIAGNOSIS: 1. 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 3. Second-degree heart block, Mobitz type 1. 4. Gait dysfunction. 5. DVT prophylaxis. 6. Anemia of chronic disease. 7. Increased random blood sugar. DISCHARGE DISPOSITION: Patient discharged in stable condition with guarded prognosis. Discharge cleared by Neurology and Infectious Disease. HISTORY OF PRESENT ILLNESS: This 27-year-old gentleman with was admitted with HIV encephalopathy and HIV peripheral neuropathy. The patient has multiple medical issues also. The patient was monitored closely and seen by Neurology, Infectious Disease and recommended for discharge. The patient also has some social issues and now currently the grandmother is the legal guardian and patient will go home with her according to the case management team. DISCHARGE ADVICE AND MEDICATIONS: 1. Diet is cardiac. 2. Activity limited until followup. 3. Follow up with Dr. Arnold in 1 week. 4. Follow up with Dr. Miranda as recommended. MEDICATIONS: 1. Tylenol 650 q.6h p.r.n. 2. Stribild 1 tab p.o. daily. 3. Motrin 400 mg q.6h p.r.n. 4. Nystatin 500,000 p.o. q.i.d. p.r.n. Once again, the patient will be discharged in stable condition with guarded prognosis. MMODL / IJN: [id number] /
== END 2017-08-16 17:58 | disposition home or self-care (01) | DRG 976 ==
LOC: EC 19:07 → 4MS4W 22:59 → 6SEL 08-02 02:31 → OBSVTOIN 08-05 12:31 → EEVIPCON 08-05 12:31 → 4MS4W 08-07 10:26
PROVIDERS: ADMIT Internal Medicine; ATTEND Internal Medicine
PROC: 009U3ZX Drainage of Spinal Canal, Percutaneous Approach, Diagnostic (ICD-10-PCS; principal; 2017-08-05)
DX: B20 Human immunodeficiency virus [HIV] disease (principal); G93.49 Other encephalopathy; B37.0 Candidal stomatitis; G62.89 Other specified polyneuropathies; D63.8 Anemia in other chronic diseases classified elsewhere; D69.6 Thrombocytopenia, unspecified; G31.9 Degenerative disease of nervous system, unspecified; I44.1 Atrioventricular block, second degree; M47.816 Spondylosis without myelopathy or radiculopathy, lumbar region; M51.36 Other intervertebral disc degeneration, lumbar region; R26.9 Unspecified abnormalities of gait and mobility; R45.4 Irritability and anger; R73.9 Hyperglycemia, unspecified
CPT/HCPCS: 36415; 51798; 62270; 70553; 71045; 71046; 72100; 72158; 80048; 80053; 81003; 82550; 82945; 83605; 83735; 84157; 84439; 84443; 85025; 85610; 85730; 86592; 86780; 87040; 87536; 87798; 89050; 93005; 93306; 93970; 94760; 96365; 99285

== ENCOUNTER 2017-08-19 15:38 | Observation (INO) | payer OTHER ==
--- NOTE | 2017-08-19 16:16 | ED ---
Extremity Problem HPI - General Chief complaint: Extremity Problem,Nontraumatic Stated complaint: leg numbness Time Seen by Provider: 08/19/17 15:47 Source: patient Mode of arrival: wheelchair Limitations: no limitations - History of Present Illness Initial comments: Is a 27-year-old male with a history of HIV whose been noncompliant and chronic lower extremity pain and weakness who presents emergency department for persistent pain in his legs and difficulty with ambulation. The patient was recently hospitalized and discharged 3 days ago. He had an extensive stay and workup. He was seen by infectious disease and neurology. He had an MRI of his brain and also lumbar puncture which were unremarkable for anything that could explain his symptoms. The patient was seen by physical therapy and showed improvement. There was discussion about sending him to an ECF or inpatient rehab however this was unable to be done. The patient was discharged home with his mother. The patient's legal guardian is his grandmother. The mom is stating that she has to move out of the house in 2 weeks and cannot take care of the patient. She brought him back here because she states that she can no longer care for him. Patient denies any changes to his symptoms. No fevers or chills. No cough. No headache. States he just has persistent pain. - Related Data Previous Rx's Medication Instructions Recorded Elviteg/Tracee/Emtric/Tenofo Dis 1 tab PO DAILY #30 tab 08/05/17 [Stribild Tablet] Ibuprofen [Motrin] 400 mg PO Q6HR PRN tab 08/16/17 Nystatin 100,000 Unit/ml Susp 500,000 unit PO QID #100 ml 08/16/17 [Mycostatin Oral Susp] Allergies Allergy/AdvReac Type Severity Reaction Status Date / Time No Known Allergies Allergy Verified 08/19/17 15:55 Review of Systems ROS Statement: Those systems with pertinent positive or pertinent negative responses have been documented in the HPI. ROS Other: All systems not noted in ROS Statement are negative. Past Medical History Past Medical History: No Reported History Additional Past Medical History / Comment(s): hiv + History of Any Multi-Drug Resistant Organisms: None Reported Past Surgical History: No Surgical Hx Reported Past Psychological History: No Psychological Hx Reported Smoking Status: Current some day smoker Past Alcohol Use History: None Reported Past Drug Use History: Marijuana General Exam - General Exam Comments Initial Comments: Constitutional: Awake alert Appears comfortable Head: Normocephalic atraumatic Eyes: no conjunctival injection No scleral icterus EOMI Neck: No JVD Supple Heart: Regular rate rhythm normal S1-S2 no murmurs Lungs: Clear to auscultation bilaterally No wheezing No rales Abdomen: Soft nondistended nontender Extremities: Non edematous DP pulses intact Radial pulses intact Neuro: A&Ox3 No focal neurologic deficits Psych: Appropriate mood and affect Limitations: no limitations Course Vital Signs 08/19/17 15:43 Temperature 99.2 F Pulse Rate 74 Respiratory 22 Rate Blood Pressure 109/63 O2 Sat by Pulse 98 Oximetry Medical Decision Making - Medical Decision Making This is a 27-year-old who came in for difficulty 2 with ambulation and lower extremity pain. He had nothing that was changed from his previous admission. The family stated that they just are unable to take care of him and state that they feel that he needs to be placed into some type of long-term facility. It appears through the chart that the patient was wary of being transferred to any type of long-term facility and thus she was discharged back home with his mother. He is now agreeable to staying in a long-term facility. I spoke with Dr. trivedi who stated that he would agree to the admission as long as the patient agreed to the placement. I again spoke with the patient and the family and stated that the admission would certainly be for placement. He's had a full workup already for these complaints. I do not feel that any further workup is necessary at this time. The patient will be admitted for placement to a long-term facility. Disposition Clinical Impression: Lower extremity pain, Ambulatory dysfunction Disposition: ADMITTED IP TO THIS HOSP Condition: Stable
[2017-08-19] MEDS ORDERED: NALOXONE 0.4 MG/ML 1 ML VIAL IV PRN (16:47)
[2017-08-19] MEDS: NYSTATIN 100,000 UNIT/ML SUSP 500,000 UNIT/5 ML CUP PO SCH ×2 (19:59→21:08)
[2017-08-19] MEDS: ACETAMINOPHEN TAB 325 MG TAB PO PRN (21:14)
--- NOTE | 2017-08-20 04:24 | HP ---
HISTORY AND PHYSICAL DATE OF SERVICE: 08/19/17 CHIEF COMPLAINTS: Leg numbness and pain. HISTORY OF PRESENT ILLNESS: This 27-year-old gentleman with a past history of HIV, had severe peripheral neuropathy, encephalopathy secondary to with multiple medical issues. Patient was admitted recently to the hospital and discharged to home with mother apparently. The patient legal guardian is grandmother. The patient was complaining of severe leg pain. The patient taken to [facility] Emergency Room and was admitted for further evaluation and treatment. Mother is stating that the patient has in 2 weeks. There is no history of fever, rigors or chills. No history of headache, loss of consciousness, seizures. PAST MEDICAL HISTORY: History of HIV, history of nicotine dependence. Peripheral neuropathy. MEDICATIONS: Prior to admission include: 1. Nystatin p.o. q.i.d. 2. Ibuprofen 400 daily. 3. Stribild 1 tab p.o. daily. ALLERGIES: None. FAMILY HISTORY: No history of heart disease or strokes family. SOCIAL HISTORY: History of smoking, occasional alcohol and THC. REVIEW OF SYSTEMS: ENT: No diminished hearing or diminished vision. CARDIOVASCULAR: No angina or palpitations. Respiratory: As mentioned earlier. GI no nausea or vomiting. : No dysuria. Central nervous system: No numbness, weakness. Allergy/Immunology: No asthma or hayfever. Musculoskeletal as mentioned earlier. HEMATOLOGY/ONCOLOGY: No history of anemia. Endocrine no history of diabetes. CONSTITUTIONAL: As mentioned earlier. DERMATOLOGY: Negative. RHEUMATOLOGY: Negative. PSYCHIATRY: As mentioned earlier. PHYSICAL EXAMINATION: Alert, oriented x3. Pulse 73, blood pressure 122/47. Respiratory rate 20. Temperature 99.8, pulse ox 98% on room air. HEENT: Oral mucosa moist. Neck is no jugular venous distention. No carotid bruit. No lymph node enlargement. Cardiovascular system S1, S2 muffled. Respiratory: Breath sounds diminished in the bases. No rhonchi and no crackles. ABDOMEN: Soft, nontender. No mass palpable. Legs no edema. No swelling. Nervous system: Higher functions as mentioned. Mild diffuse weakness and sensory abnormalities. Lymphatics: No lymph nodes palpable in the neck, axillae or groin. Skin no ulcer, rashes or bleeding. LABS: Labs are not available. ASSESSMENT: 1. Severe HIV peripheral neuropathy. 2. HIV encephalopathy history. 3. Secondary outbreak history. 4. Gait dysfunction. 5. Deep vein thrombosis prophylaxis. 6. Anemia of chronic disease. 7. History of increased random blood sugar. RECOMMENDATIONS AND DISCUSSION: Recommend to continue current medications, management and symptomatic treatment. We will resume the home medications and we will also recommend PT/OT evaluation and symptomatic treatment for the peripheral neuropathy will be offered. project management manager and licensed social worker to work for discharge planning also. Prognosis guarded. Further recommendations to follow. MMODL / IJN: [id number] / MYLES
[2017-08-20] MEDS: Elviteg/Cobi/Emtric/Tenofo Dis [Stribild Tablet] 1 TAB PO SCH (07:21)
[2017-08-20] MEDS: NYSTATIN 100,000 UNIT/ML SUSP 500,000 UNIT/5 ML CUP PO SCH ×4 (07:22→21:27)
--- NOTE | 2017-08-20 09:49 | P.CONS ---
History of Present Illness - Reason for Consult Consult date: 08/20/17 HIV - History of Present Illness This is a 27-year-old Afro-Malawian male who had a recent hospitalization on at which time he presented with bilateral lower extremity weakness and broad-based gait. Been progressively getting worse for 2 months. Patient had a history of HIV diagnosed in 2008 but did not seek treatment. He had an extensive workup during his hospitalization including CAT scan, lumbar puncture , MRI of the brain and lumbar spine. He was seen by ID services as well as neurology and psychiatry. He was diagnosed with HIV with HIV encephalopathy and during his stay he was started on Stribild. His grandmother obtained guardianship but was resistant to discharge planning for AF or intermediate. Extended care facilities would not accept the patient due to cost of HIV medication. Patient was discharged home living with his mother and has now returned to [facility] emergency center with same complaints of lower extremity pain and weakness but mother did relate to the ER physician that they have to move out of their house in 2 weeks and she is not able to take care of him and he needs long-term facility. Case management is following as well as social work will be following the patient. Patient may need a new guardian in place to better address patient's needs. Patient continues to complain of the pain in his lower legs and difficulty walking. He states his appetite is okay. He denies having any fever or chills. He denies any shortness of breath or chest pain. He is concerned for initiating urinary flow. He denies any pain with urination. Review of Systems All systems: negative Constitutional: Denies anorexia, Denies chills, Denies fever, Denies poor appetite, Denies weight loss Eyes: denies blurred vision, denies pain Ears, nose, mouth and throat: Denies dental pain, Denies headache, Denies mouth pain, Denies sore throat, Denies vertigo Cardiovascular: Denies chest pain, Denies decreased exercise tolerance, Denies dyspnea on exertion, Denies leg edema, Denies lightheadedness, Denies shortness of breath, Denies syncope Respiratory: Denies cough, Denies excessive sputum, Denies hemoptysis, Denies home oxygen, Denies wheezing Gastrointestinal: Denies abdominal pain, Denies diarrhea, Denies loss of appetite, Denies nausea, Denies vomiting Genitourinary: Reports urinary hesitancy, Denies dysuria Musculoskeletal: Reports gait dysfunction, Denies myalgias Integumentary: Denies pruritus, Denies rash Neurological: Reports weakness, Denies numbness Psychiatric: Denies anxiety, Denies depression Endocrine: Denies fatigue, Denies weight change Past Medical History Past Medical History: No Reported History Additional Past Medical History / Comment(s): hiv +, HIV encephalopathy History of Any Multi-Drug Resistant Organisms: None Reported Past Surgical History: No Surgical Hx Reported Past Psychological History: No Psychological Hx Reported Smoking Status: Never smoker Past Alcohol Use History: None Reported Additional Past Alcohol Use History / Comment(s): Patient denies any history of smoking. He does use marijuana and smokes alcohol occasionally. He lives at home with his mother. There are dogs in the home. 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 He denies any recent travel. Past Drug Use History: Marijuana - Past Family History Mother History Unknown: Yes Medications and Allergies Home Medications Medication Instructions Recorded Confirmed Type Elviteg/Tracee/Emtric/Tenofo Dis 1 tab PO DAILY #30 tab 08/05/17 08/19/17 Rx [Stribild Tablet] Ibuprofen [Motrin] 400 mg PO Q6HR PRN tab 08/16/17 08/19/17 Rx Nystatin 100,000 Unit/ml Susp 500,000 unit PO QID #100 ml 08/16/17 08/19/17 Rx [Mycostatin Oral Susp] Allergies Allergy/AdvReac Type Severity Reaction Status Date / Time No Known Allergies Allergy Verified 08/19/17 15:55 Physical Exam Vitals: Vital Signs Temp Pulse Pulse Resp BP BP Pulse Ox 08/20/17 07:26 73 20 08/20/17 07:20 98.0 F 53 L 16 129/67 94 L 08/20/17 00:00 73 20 08/19/17 21:00 99.6 F 73 20 122/47 98 08/19/17 17:50 98.2 F 67 16 120/72 97 08/19/17 15:43 99.2 F 74 22 109/63 98 Intake and Output 08/19/17 08/20/17 08/20/17 22:59 06:59 14:59 Other: # Voids 1 4 # Bowel Movements 1 Weight 90.718 kg 90.718 kg Gen: This is a 27-year-old -Malawian male. He is sitting in a chair at the bedside and appears to be comfortable and in no acute distress. HEENT: Head is atraumatic, normocephalic. Pupils equal, round. Sclerae is anicteric. Conjunctiva pink. Mucous members of the mouth are moist. No thrush noted. NECK: Supple. No JVD. No lymphadenopathy. No thyromegaly. LUNGS: Clear to auscultation. Scattered and expiratory wheeze. No intercostal retractions. HEART: Regular rate and rhythm. No murmur. ABDOMEN: Soft. Bowel sounds are present. No masses. No tenderness. EXTREMITIES: No pedal edema. No calf tenderness.patient complains of generalized pain with minimal movement of his legs. NEUROLOGICAL: Patient is awake, alert and is able to answer most questions appropriately. Patient is a poor historian. Assessment and Plan Plan: This is a 27-year-old -Malawian male patient recently diagnosed with HIV with HIV encephalopathy. Patient will be continued on Stribild which he has brought from home. Case management and social security specialist to work on discharge planning. Continue supportive care. Further medications as patient progresses. The above dictated assessment and findings were discussed with Dr. Miranda. The impression and plan of care have been directed as dictated. Little Diaz nurse practitioner acting as scribe for Dr. Miranda.
[2017-08-20] MEDS: ACETAMINOPHEN TAB 325 MG TAB PO PRN (21:25)
--- NOTE | 2017-08-20 21:47 | P.CON ---
Consult Note - . Consult date: 08/20/17 Assessment/Plan:: This is a 27-year-old Afro-Fijian male who had a recent hospitalization on at which time he presented with bilateral lower extremity weakness and broad-based gait. Been progressively getting worse for 2 months. Patient had a history of HIV diagnosed in 2008 but did not seek treatment. He had an extensive workup during his hospitalization including CAT scan, lumbar puncture , MRI of the brain and lumbar spine. He was seen by ID services as well as neurology and psychiatry. He was diagnosed with HIV with HIV encephalopathy and during his stay he was started on Stribild. His grandmother obtained guardianship but was resistant to discharge planning for AF or shelter. Extended care facilities would not accept the patient due to cost of HIV medication. Patient was discharged home living with his mother and has now returned to [facility] emergency center with same complaints of lower extremity pain and weakness but mother did relate to the ER physician that they have to move out of their house in 2 weeks and she is not able to take care of him and he needs long-term facility. Case management is following as well as social work will be following the patient. Patient may need a new guardian in place to better address patient's needs. Patient continues to complain of the pain in his lower legs and difficulty walking. He states his appetite is okay. He denies having any fever or chills. He denies any shortness of breath or chest pain. He is concerned for initiating urinary flow. He denies any pain with urination. Please see the consult note as dictated by nurse practitioner Mrs. Little Diaz. Patient is sitting up eating his lunch in no distress. Is able to stand briefly to utilize the commode. Does have intermittent difficulties with urinary incontinence. Is related that the social situation has been his biggest issue. Apparently his mother does not believe she can care for him brought him back to Hospital and since she's moving away in 2 weeks and he'll be on his own. Social work is now in the midst of determining best possible plan. The patient to remain on his Sribild as before in hopes that this will allow some improvement of his HIV encephalopathy. As noted during his most recent stay there was no evidence of CONTENT DIRECTOR syphilis and he was negative for ROEL Polyomavirus, making PML unlikely. For now continue the antiretrovirals and supportive care and placement will be attempted. I agree with evaluation, assessment and plan as dictated by nurse practitioner Mrs. Little Diaz.
[2017-08-21] MEDS: IBUPROFEN 400 MG TAB PO PRN ×3 (00:54→21:50)
[2017-08-21] MEDS: ACETAMINOPHEN TAB 325 MG TAB PO PRN ×2 (04:07→11:18)
[2017-08-21 07:49] LABS: Anion Gap 9 mmol/L; Blood Urea Nitrogen 14 mg/dL (9-20); Calcium 9.1 mg/dL (8.4-10.2); Carbon Dioxide 30 mmol/L (22-30); Chloride 102 mmol/L (98-107); Glucose 83 mg/dL (74-99); Sodium 141 mmol/L (137-145)
[2017-08-21 07:57] LABS: Basophils # (A) 0.1 k/uL (0-0.2); Basophils % (A) 1 %; Eosinophils # (A) 0.2 k/uL (0-0.7); Eosinophils % (A) 4 %; HCT 36.4 % (39.0-53.0); HGB 12.2 gm/dL (13.0-17.5); Lymphocytes # (A) 1.6 k/uL (1.0-4.8); Lymphocytes % (A) 28 %; MCH 30.8 pg (25.0-35.0); MCHC 33.5 g/dL (31.0-37.0); Mean Platelet Volume 8.5; Monocytes # (A) 0.4 k/uL (0-1.0); Monocytes % (A) 7 %; Neutrophils # (A) 3.3 k/uL (1.3-7.7); Neutrophils % (A) 57 %; Platelet Count 224 k/uL (150-450); RBC 3.96 m/uL (4.30-5.90); RDW 14.9 % (11.5-15.5); WBC 5.8 k/uL (3.8-10.6)
[2017-08-21] MEDS: NYSTATIN 100,000 UNIT/ML SUSP 500,000 UNIT/5 ML CUP PO SCH ×4 (08:28→21:47)
[2017-08-21] MEDS: Elviteg/Cobi/Emtric/Tenofo Dis [Stribild Tablet] 1 TAB PO SCH (08:28)
--- NOTE | 2017-08-21 13:40 | P.PN ---
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 patient was discharge to home in the care of his mother while his grandmother was signed as his guardian. He brought in to the emergency room last night because his mother she could not take care of him anymore related to his lower extremity weakness, however patient denies to me any other further complaints. No chest pain, dyspnea, fever, change in urine or bowel habits 08/21/2017 Patient at bedside says his weakness in the lower extremity are improving today. His guardian and guarded mother is at bedside, discussed the case with her and she states that for 3 days after his discharge last time he wasn't getting his HIV medication for no specific reason, and he lost his improvement last time he was in the hospital while he is off his medication. Weakness is improved after restarted medication as per patient Objective - Vital Signs Vital signs: Vital Signs Temp 97.8 F 08/21/17 07:05 Pulse 61 08/21/17 08:00 Resp 20 08/21/17 08:00 BP 122/70 08/21/17 07:05 Pulse Ox 96 08/21/17 07:05 Intake & Output 08/20/17 08/21/17 08/21/17 18:59 06:59 18:59 Intake Total 590 400 Output Total 1700 Balance -1700 590 400 Weight 90.718 kg Intake: Oral 590 400 Output: Urine 1700 Other: Voiding Method Diaper Diaper Incontinent Incontinent # Voids 4 2 2 # Bowel Movements 1 2 - Exam General: he is alert awake oriented 3 CVS: S1-S2, RRR, no murmur Lungs: B/L CTA, no wheezing Abdomen: soft ND, NT, positive bowel sounds Extremities: no edema Neuro: patient is awake and alert and oriented, cranial nerves are grossly intact, his symmetrical weakness of both lower extremity is improving (R>L) Psychiatric: no suicidal ideation - Labs CBC & Chem 7: 08/21/17 07:01 08/21/17 07:01 Labs: Abnormal Lab Results - Last 24 Hours (Table) 08/21/17 Range/Units 07:01 RBC 3.96 L (4.30-5.90) m/uL Hgb 12.2 L (13.0-17.5) gm/dL Hct 36.4 L (39.0-53.0) % Assessment and Plan Assessment: 1. severe HIV peripheral neuropathy 2. Bilateral lower extremity weakness, mostly secondary to 1 above 3. HIV encephalopathy history 4. Anemia of chronic disease and 5. Deep venous thrombosis prophylaxis Plan: Patient admitted to the hospital for placement, he has difficulty taking care of himself given his lower extremity weakness which is chronic, his grandmother is his guardian and she is at bedside and she is updated with the treatment plan and she is in agreement. ID team evaluation is appreciated, continue with the same HIV treatment. Patient lower extremity weakness has improved on HIV medication however they are still weak and he needs placement, social media sr strategy manager is following on the case. neurological evaluation can be done as an outpatient. Patient is medically clear for discharge once his placement issue is resolved
--- NOTE | 2017-08-21 21:20 | P.PN ---
Subjective Progress Note Date: 08/21/17 his is a 27-year-old Afro-Rwandan male who had a recent hospitalization on at which time he presented with bilateral lower extremity weakness and broad-based gait. Been progressively getting worse for 2 months. Patient had a history of HIV diagnosed in 2008 but did not seek treatment. He had an extensive workup during his hospitalization including CAT scan, lumbar puncture , MRI of the brain and lumbar spine. He was seen by ID services as well as neurology and psychiatry. He was diagnosed with HIV with HIV encephalopathy and during his stay he was started on Stribild. His grandmother obtained guardianship but was resistant to discharge planning for AF or residential. Extended care facilities would not accept the patient due to cost of HIV medication. Patient was discharged home living with his mother and has now returned to [facility] emergency center with same complaints of lower extremity pain and weakness but mother did relate to the ER physician that they have to move out of their house in 2 weeks and she is not able to take care of him and he needs long-term facility. Case management is following as well as social work will be following the patient. Patient may need a new guardian in place to better address patient's needs. Patient continues to complain of the pain in his lower legs and difficulty walking. He states his appetite is okay. He denies having any fever or chills. He denies any shortness of breath or chest pain. He is concerned for initiating urinary flow. He denies any pain with urination. On 08/21/2017 the patient is feeling better. He believes that his mentation is clear. He was up with a walker into the hallway, and is admitted to the restroom also. Does have some difficulties with urinary incontinence. Appetite is good and he is eating well. Objective - Vital Signs Vital signs: Vital Signs Temp 98.4 F 08/21/17 14:02 Pulse 85 08/21/17 16:00 Resp 18 08/21/17 16:00 BP 124/58 08/21/17 14:02 Pulse Ox 97 08/21/17 14:02 Intake & Output 08/21/17 08/21/17 08/22/17 06:59 18:59 06:59 Intake Total 590 400 Balance 590 400 Intake: Oral 590 400 Other: Voiding Method Diaper Diaper Incontinent Incontinent # Voids 2 1 # Bowel Movements 2 - Exam Gen: This is a 27-year-old -Rwandan male. He is sitting in a chair at the bedside and appears to be comfortable and in no acute distress. HEENT: Head is atraumatic, normocephalic. Pupils equal, round. Sclerae is anicteric. Conjunctiva pink. Mucous members of the mouth are moist. No thrush noted. NECK: Supple. No JVD. No lymphadenopathy. No thyromegaly. LUNGS: Clear to auscultation. Scattered and expiratory wheeze. No intercostal retractions. HEART: Regular rate and rhythm. No murmur. ABDOMEN: Soft. Bowel sounds are present. No masses. No tenderness. EXTREMITIES: No pedal edema. No calf tenderness.patient complains of generalized pain with minimal movement of his legs. NEUROLOGICAL: Patient is awake, alert and is able to answer most questions appropriately. The patient is able to stand at the bedside materially without difficulty. - Labs CBC & Chem 7: 08/21/17 07:01 08/21/17 07:01 Labs: Abnormal Lab Results - Last 24 Hours (Table) 08/21/17 Range/Units 07:01 RBC 3.96 L (4.30-5.90) m/uL Hgb 12.2 L (13.0-17.5) gm/dL Hct 36.4 L (39.0-53.0) % Laboratory Results WBC 5.8 k/uL (3.8-10.6) 08/21/17 07:01 RBC 3.96 m/uL (4.30-5.90) L 08/21/17 07:01 Hgb 12.2 gm/dL (13.0-17.5) L 08/21/17 07:01 Hct 36.4 % (39.0-53.0) L 08/21/17 07:01 MCV 92.0 fL (80.0-100.0) 08/21/17 07:01 MCH 30.8 pg (25.0-35.0) 08/21/17 07:01 MCHC 33.5 g/dL (31.0-37.0) 08/21/17 07:01 RDW 14.9 % (11.5-15.5) 08/21/17 07:01 Plt Count 224 k/uL (150-450) 08/21/17 07:01 Neutrophils % 57 % 08/21/17 07:01 Lymphocytes % 28 % 08/21/17 07:01 Monocytes % 7 % 08/21/17 07:01 Eosinophils % 4 % 08/21/17 07:01 Basophils % 1 % 08/21/17 07:01 Neutrophils # 3.3 k/uL (1.3-7.7) 08/21/17 07:01 Lymphocytes # 1.6 k/uL (1.0-4.8) 08/21/17 07:01 Monocytes # 0.4 k/uL (0-1.0) 08/21/17 07:01 Eosinophils # 0.2 k/uL (0-0.7) 08/21/17 07:01 Basophils # 0.1 k/uL (0-0.2) 08/21/17 07:01 Sodium 141 mmol/L (137-145) 08/21/17 07:01 Potassium 5.0 mmol/L (3.5-5.1) 08/21/17 07:01 Chloride 102 mmol/L (98-107) 08/21/17 07:01 Carbon Dioxide 30 mmol/L (22-30) 08/21/17 07:01 Anion Gap 9 mmol/L 08/21/17 07:01 BUN 14 mg/dL (9-20) 08/21/17 07:01 Creatinine 0.98 mg/dL (0.66-1.25) 08/21/17 07:01 Est GFR (CKD-EPI)AfAm >90 (>60 ml/min/1.73 sqM) 08/21/17 07:01 Est GFR (CKD-EPI)NonAf >90 (>60 ml/min/1.73 sqM) 08/21/17 07:01 Glucose 83 mg/dL (74-99) 08/21/17 07:01 Calcium 9.1 mg/dL (8.4-10.2) 08/21/17 07:01 Assessment and Plan (1) HIV encephalopathy Current Visit: No Status: Acute Code(s): B20 - HUMAN IMMUNODEFICIENCY VIRUS [HIV] DISEASE; G93.40 - ENCEPHALOPATHY, UNSPECIFIED SNOMED Code(s): 751621430 Plan: Patient is sitting up eating his lunch in no distress. Is able to stand briefly to utilize the commode. Does have intermittent difficulties with urinary incontinence. Is related that the social situation has been his biggest issue. Apparently his mother does not believe she can care for him brought him back to Hospital and since she's moving away in 2 weeks and he'll be on his own. Social work is now in the midst of determining best possible plan. The patient to remain on his Sribild as before in hopes that this will allow some improvement of his HIV encephalopathy. As noted during his most recent stay there was no evidence of SERVICE OPERATIONS MANAGER syphilis and he was negative for ROEL Polyomavirus, making PML unlikely. For now continue the antiretrovirals and supportive care and placement will be attempted. On 08/21/2017 the patient is showing some improvement already since being admitted. The social work department is working diligently on trying to devise a acceptable discharge plan. The patient's HIV medications should be covered by [facility] and this may assist his placement in rehab or [facility].
[2017-08-22] MEDS: ACETAMINOPHEN TAB 325 MG TAB PO PRN ×2 (01:14→22:46)
[2017-08-22] MEDS: NYSTATIN 100,000 UNIT/ML SUSP 500,000 UNIT/5 ML CUP PO SCH ×4 (08:34→22:04)
[2017-08-22] MEDS: Elviteg/Cobi/Emtric/Tenofo Dis [Stribild Tablet] 1 TAB PO SCH (08:34)
[2017-08-22] MEDS: GABAPENTIN 300 MG CAP PO SCH ×2 (20:03→22:05)
--- NOTE | 2017-08-22 21:18 | CONS ---
CONSULTATION DATE OF CONSULTATION: 08/22/2017. CHIEF COMPLAINT: Lower extremity pain. HISTORY OF PRESENT ILLNESS: The patient is a 27-year-old male, who is being evaluated by the neurology service per the request of Dr. Callaway for lower extremity pain. The patient has a history of HIV and does have a history of peripheral polyneuropathy. Over the past couple of weeks, he has noticed that the pain has been excruciating whenever he ambulates. The pain starts in his feet and goes as high as his middle thigh. This symptoms are symmetrical involving the right and the left lower extremity. He does complain of mild numbness in his hands but nothing like his lower extremities. He states that he has not been able to ambulate due to the severity of the symptoms. He also informs me that if he is just sitting down, he has no lower extremity pain. He denies any new injuries or trauma. His CBC showed mild anemia with a hemoglobin of 12.2 and hematocrit of 36%. His basic metabolic profile was normal. At the time of my evaluation, the patient is sitting in his bedside chair and appears to be in no acute distress. He denies any other neurological complaints today. PAST MEDICAL HISTORY: HIV, peripheral polyneuropathy, encephalopathy. SOCIAL HISTORY: The patient does have a history of smoking. He occasionally drinks alcohol and occasionally smokes marijuana. FAMILY HISTORY: Noncontributory. HOME MEDICATIONS: Reviewed in the chart. ALLERGIES: No known drug allergies. REVIEW OF SYSTEMS: CONSTITUTIONAL: Positive for fatigue. EYES: Negative. ENT: Negative. CARDIOVASCULAR: Negative. GENITOURINARY: Negative. RESPIRATORY: Negative. NEUROLOGICAL: As mentioned above. MUSCULOSKELETAL: As mentioned above. GASTROINTESTINAL: Negative. DERMATOLOGICAL: Negative. ENDOCRINE: Negative. PSYCHIATRIC: Negative. PHYSICAL EXAM: Vital signs show a temperature of 98.3, pulse 63, respiration 18, blood pressure 122/59. GENERAL APPEARANCE: The patient is a well-developed male who appears to be in no acute distress. HEENT: Normocephalic, atraumatic, no facial asymmetry is seen. NECK: Supple with no masses felt. CARDIOVASCULAR: Regular rate and rhythm. ABDOMEN: Nontender nondistended. Extremities showed. Trace edema with no clubbing seen. Neurological exam: The patient is awake and oriented x3. Speech and language are normal. Strength is 4- out of 5 in bilateral lower extremities and 5/5 in bilateral upper extremities. Sensory exam showed diminished light touch sensation in bilateral distal lower extremities. No tremors or seizure-like activity is seen. No facial asymmetry is seen on cranial nerve testing. IMPRESSION: 1. Lower extremity pain. 2. Peripheral polyneuropathy. 3. Lower extremity sensory deficit. 4. HIV infection. RECOMMENDATION: Given the patient's history and symptoms, he likely has HIV neuropathy, which is usually a very painful neuropathy. He is not on any neuropathic pain medications. I had a lengthy discussion with him regarding treatment options. For now, I will start him on Neurontin 300 mg 3 times daily. Possible side effects were discussed with the patient. I do recommend physical therapy as he is exhibiting some weakness in his lower extremities as well. I also recommend further work up to rule out any vascular etiologies for his lower extremity pain with ambulation. The patient will need further outpatient neurophysiological workup. He may follow up after discharge. Continue the rest of your current workup and management. I will continue to follow with you. Further recommendations to follow. Thank you for allowing me to participate in the care of your patient. If you have any questions, please feel free to contact me. ENOCH / VELIA: [id number] /
--- NOTE | 2017-08-22 23:54 | P.PN ---
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 patient was discharge to home in the care of his mother while his grandmother was signed as his guardian. He brought in to the emergency room last night because his mother she could not take care of him anymore related to his lower extremity weakness, however patient denies to me any other further complaints. No chest pain, dyspnea, fever, change in urine or bowel habits 08/21/2017 Patient at bedside says his weakness in the lower extremity are improving today. His guardian and guarded mother is at bedside, discussed the case with her and she states that for 3 days after his discharge last time he wasn't getting his HIV medication for no specific reason, and he lost his improvement last time he was in the hospital while he is off his medication. Weakness is improved after restarted medication as per patient Objective - Vital Signs Vital signs: Vital Signs Temp 97.7 F 08/22/17 22:32 Pulse 75 08/22/17 22:35 Resp 18 08/22/17 22:32 BP 137/83 08/22/17 22:32 Pulse Ox 93 L 08/22/17 22:32 Intake & Output 08/22/17 08/22/17 08/23/17 06:59 18:59 06:59 Intake Total 400 Output Total 600 Balance 400 -600 Intake: Oral 400 Output: Urine 600 Other: Voiding Method Diaper Toilet Incontinent Urinal Diaper Incontinent # Voids 1 3 2 # Bowel Movements 1 2 - Exam General: he is alert awake oriented 3 CVS: S1-S2, RRR, no murmur Lungs: B/L CTA, no wheezing Abdomen: soft ND, NT, positive bowel sounds Extremities: no edema Neuro: patient is awake and alert and oriented, cranial nerves are grossly intact, his symmetrical weakness of both lower extremity is improving (R>L) Psychiatric: no suicidal ideation - Labs CBC & Chem 7: 08/21/17 07:01 08/21/17 07:01 Assessment and Plan Assessment: 1. severe HIV peripheral neuropathy 2. Bilateral lower extremity weakness, mostly secondary to 1 above 3. HIV encephalopathy history 4. Anemia of chronic disease and 5. Deep venous thrombosis prophylaxis Plan: Patient admitted to the hospital for placement, he has difficulty taking care of himself given his lower extremity weakness which is chronic, his grandmother is his guardian and she is at bedside and she is updated with the treatment plan and she is in agreement. ID team evaluation is appreciated, continue with the same HIV treatment. Patient lower extremity weakness has improved on HIV medication however they are still weak and he needs placement, social science professor is following on the case. neurological evaluation can be done as an outpatient. Patient is medically clear for discharge once his placement issue is resolved
[2017-08-23] MEDS: NYSTATIN 100,000 UNIT/ML SUSP 500,000 UNIT/5 ML CUP PO SCH ×4 (07:28→21:41)
[2017-08-23] MEDS: GABAPENTIN 300 MG CAP PO SCH ×3 (07:28→21:41)
[2017-08-23] MEDS: ACETAMINOPHEN TAB 325 MG TAB PO PRN ×2 (07:28→19:15)
[2017-08-23] MEDS: Elviteg/Cobi/Emtric/Tenofo Dis [Stribild Tablet] 1 TAB PO SCH (07:28)
[2017-08-23] MEDS: IBUPROFEN 400 MG TAB PO PRN (11:58)
--- NOTE | 2017-08-23 13:42 | US ---
"EXAMINATION TYPE: US venous doppler duplex LE BI DATE OF EXAM: 08/23/2017 1:19 PM COMPARISON: Ultrasound 08/06/2017 CLINICAL HISTORY: Rule out DVT. Numbness bilateral legs for 2 weeks SIDE PERFORMED: bilateral TECHNIQUE: The lower extremity deep venous system is examined utilizing real time linear array sonog karen with graded compression, doppler sonography and color-flow sonography. VESSELS IMAGED: External Iliac Vein (EIV) Common Femoral Vein Deep Femoral Vein Greater Saphenous Vein * Femoral Vein Popliteal Vein Small Saphenous Vein * Proximal Calf Veins (* superficial vessels) Low-level internal echoes are present within the right popliteal vein. There is lack of compressibili ty. Decreased color flow is noted. Right Leg: +Positive for DVT. Non-occlusive thrombus noted right popliteal vein Left Leg: No evidence of DVT IMPRESSION: Deep venous thrombosis right popliteal vein. Diana notified telephonically at the time of interpretation, on [facility]. A Red level critical message alert has been initiated for Danny Callaway MD via the [employer] | Critical Results System on 08/23/2017 1:37 PM. This message alert has been sent to Danny Callaway MD via the preferences provided by the clinician for the receipt of Radiology Critical Findings. Message ID [id number]."
--- NOTE | 2017-08-23 14:48 | P.PN ---
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 patient was discharge to home in the care of his mother while his grandmother was signed as his guardian. He brought in to the emergency room last night because his mother she could not take care of him anymore related to his lower extremity weakness, however patient denies to me any other further complaints. No chest pain, dyspnea, fever, change in urine or bowel habits 08/21/2017 Patient at bedside says his weakness in the lower extremity are improving today. His guardian and guarded mother is at bedside, discussed the case with her and she states that for 3 days after his discharge last time he wasn't getting his HIV medication for no specific reason, and he lost his improvement last time he was in the hospital while he is off his medication. Weakness is improved after restarted medication as per patient On 08/23/2017 Patient failed last night and hit his head, no arthritis, no wounds, patient had some headache with now resolved. Continue with neuro check Neurology saw the patient's and recommended Neurontin and physical therapy and Doppler of lower ext, pt states to me he has pain in his both legs only when uses them and that is been going on for about 2 weeks since he is been discharged last time , his pain is the same and not progressive, while lying in bed he has no pain Patient still pending a placement Objective - Vital Signs Vital signs: Vital Signs Temp 98.1 F 08/23/17 07:36 Pulse 57 L 08/23/17 07:36 Resp 16 08/23/17 07:36 BP 133/91 08/23/17 07:36 Pulse Ox 94 L 08/23/17 07:36 Intake & Output 08/22/17 08/23/17 08/23/17 18:59 06:59 18:59 Output Total 600 Balance -600 Output: Urine 600 Other: Voiding Method Toilet Toilet Toilet Urinal Urinal Urinal Diaper Diaper Diaper Incontinent Incontinent Incontinent # Voids 3 5 # Bowel Movements 2 - Exam General: he is alert awake oriented 3 CVS: S1-S2, RRR, no murmur Lungs: B/L CTA, no wheezing Abdomen: soft ND, NT, positive bowel sounds Extremities: no edema Neuro: patient is awake and alert and oriented, cranial nerves are grossly intact, his symmetrical weakness of both lower extremity is improving (R>L) Psychiatric: no suicidal ideation - Labs CBC & Chem 7: 08/21/17 07:01 08/21/17 07:01 Assessment and Plan Assessment: 1. severe HIV peripheral neuropathy 2. Bilateral lower extremity weakness, mostly secondary to 1 above 3. HIV encephalopathy history 4. Anemia of chronic disease and 5. Deep venous thrombosis prophylaxis Plan: Patient admitted to the hospital for placement, he has difficulty taking care of himself given his lower extremity weakness which is chronic, his grandmother is his guardian and she is at bedside and she is updated with the treatment plan and she is in agreement. ID team evaluation is appreciated, continue with the same HIV treatment. Patient lower extremity weakness has improved on HIV medication however they are still weak and he needs placement, social media executive is following on the case. Patient fell last night, he has some headache which is resolved now, no other pain, continue with neuro check for 24 hours. neurological consult evaluation is appreciated, continue with Neurontin. lower extremity venous Doppler : Right DVT, i spoke with the pt and his grandmother who is his guardian ,i updated her with the finding , risks including but not limited to risk of brain bleeding, GI bleeding or bleeding from anywhere else , organ dysfunction and/or and she verbalized understanding and acceptance. kostas Lantigua i discussed the case with the social media executive on case and updated her with these new finding eg fall , dvt, and the recommendation for short term rehab vs placement as he is at high risk of fall. I offered to talk to the insurance company if needed. and she kindly took notes of this prognosis is guarded still
[2017-08-23] MEDS ORDERED: APIXABAN 5 MG TAB PO SCH (21:00)
[2017-08-24] MEDS: NYSTATIN 100,000 UNIT/ML SUSP 500,000 UNIT/5 ML CUP PO SCH ×4 (08:35→22:13)
[2017-08-24] MEDS: Elviteg/Cobi/Emtric/Tenofo Dis [Stribild Tablet] 1 TAB PO SCH (08:35)
[2017-08-24] MEDS: GABAPENTIN 300 MG CAP PO SCH ×3 (08:35→22:14)
[2017-08-24] MEDS: APIXABAN 5 MG TAB PO SCH ×2 (08:36→22:14)
[2017-08-24] MEDS: ACETAMINOPHEN TAB 325 MG TAB PO PRN ×2 (11:06→17:33)
--- NOTE | 2017-08-24 16:08 | P.PN ---
Subjective Progress Note Date: 08/24/17 Patient is a 27-year-old being followed by the neurology service for lower extremity pain. Patient does have history of HIV and history of peripheral polyneuropathy. Patient states over the last couple weeks the pain has significantly increased especially when he ambulates. Patient states both legs are equally painful. Patient does complain of numbness in his hands but is significantly less than-his lower extremities. Patient denies any injury to his legs. Patient had a venous Doppler done which did show a DVT in his right leg. A nonocclusive thrombus was found in the right popliteal vein. Patient was started on Eliquis. Patient had been started on gabapentin 300 mg 3 times a day which she states is significantly helping. At the time of my evaluation, patient's resting comfortably in bed and appears to be in no acute distress. Objective - Vital Signs Vital signs: Vital Signs Temp 98.0 F 08/24/17 14:20 Pulse 91 08/24/17 14:20 Resp 16 08/24/17 14:20 BP 137/79 08/24/17 14:20 Pulse Ox 98 08/24/17 14:20 Intake & Output 08/23/17 08/24/17 08/24/17 18:59 06:59 18:59 Intake Total 500 Output Total 1240 Balance 500 -1240 Intake: Oral 500 Output: Urine 800 Stool 440 Other: Voiding Method Toilet Urinal Urinal Urinal Diaper Diaper Diaper Incontinent Incontinent Incontinent # Voids 700 1 # Bowel Movements 1 - Exam PHYSICAL EXAM: GENERAL APPEARANCE: Patient is a well-developed, male who appears to be in no acute distress. HEENT: Normocephalic, atraumatic, no facial asymmetry is seen. Neck is supple with no masses felt. CARDIOVASCULAR: Regular rate and rhythm. ABDOMEN: Nontender, nondistended. EXTREMITIES: Show no edema or clubbing. NEUROLOGICAL EXAM: Patient is awake, alert, and oriented 3. Speech and language are normal. Strength is 4/5 in bilateral lower extremities and 5/5 in bilateral upper extremities. Sensory exam is diminished to light touch in bilateral distal lower extremities. No facial asymmetry seen on cranial nerve testing. No tremors or seizure-like activity noted. - Labs CBC & Chem 7: 08/21/17 07:01 08/21/17 07:01 Assessment and Plan Plan: Impression: 1. Lower extremity pain, improving 2. Peripheral polyneuropathy 3. Lower extremity sensory deficit 4. HIV infection Recommendation: Patient likely has HIV neuropathy. He reports improvement since starting on Neurontin 300 mg 3 times daily. I recommend continuing Neurontin and we can adjust the dose as needed in the outpatient setting. Patient will likely need further neurophysiological workup in the office in the outpatient setting. As mentioned above, patient was positive for DVT in the right lower extremity. He is now on Eliquis. I will continue to follow the patient in the office after discharge. I will continue to follow with you on an as-needed basis. We'll free to call with any questions or concerns. I performed an examination of the patient and discussed the management with the RIPENING ROOM OPERATOR. I have reviewed the RIPENING ROOM OPERATOR notes and agree with the findings and plan of care.
--- NOTE | 2017-08-24 18:57 | P.PN ---
Subjective Progress Note Date: 08/24/17 his is a 27-year-old Afro-[place] male who had a recent hospitalization on at which time he presented with bilateral lower extremity weakness and broad-based gait. Been progressively getting worse for 2 months. Patient had a history of HIV diagnosed in 2008 but did not seek treatment. He had an extensive workup during his hospitalization including CAT scan, lumbar puncture , MRI of the brain and lumbar spine. He was seen by ID services as well as neurology and psychiatry. He was diagnosed with HIV with HIV encephalopathy and during his stay he was started on Stribild. His grandmother obtained guardianship but was resistant to discharge planning for [facility] or [facility]. Extended care facilities would not accept the patient due to cost of HIV medication. Patient was discharged home living with his mother and has now returned to [facility] emergency center with same complaints of lower extremity pain and weakness but mother did relate to the ER physician that they have to move out of their house in 2 weeks and she is not able to take care of him and he needs long-term facility. Case management is following as well as social work will be following the patient. Patient may need a new guardian in place to better address patient's needs. Patient continues to complain of the pain in his lower legs and difficulty walking. He states his appetite is okay. He denies having any fever or chills. He denies any shortness of breath or chest pain. He is concerned for initiating urinary flow. He denies any pain with urination. On 08/21/2017 the patient is feeling better. He believes that his mentation is clear. He was up with a walker into the hallway, and is admitted to the restroom also. Does have some difficulties with urinary incontinence. Appetite is good and he is eating well. 08/24/2017 patient continues to have some improvement but is had some swelling to his lower extremities and a follow-up ultrasound of the right leg no shows evidence of a deep venous thrombosis that and I was not present on 08/06/2017. Patient does not have any other new complaints. Discharge plan remains the greatest difficulty at this time. Objective - Vital Signs Vital signs: Vital Signs Temp 98.0 F 08/24/17 14:20 Pulse 91 08/24/17 14:20 Resp 16 08/24/17 14:20 BP 137/79 08/24/17 14:20 Pulse Ox 98 08/24/17 14:20 Intake & Output 08/23/17 08/24/17 08/24/17 18:59 06:59 18:59 Intake Total 500 Output Total 1240 Balance 500 -1240 Intake: Oral 500 Output: Urine 800 Stool 440 Other: Voiding Method Toilet Urinal Urinal Urinal Diaper Diaper Diaper Incontinent Incontinent Incontinent # Voids 700 1 # Bowel Movements 1 - Exam Gen: This is a 27-year-old -[place] male. He is sitting in a chair at the bedside and appears to be comfortable and in no acute distress. HEENT: Head is atraumatic, normocephalic. Pupils equal, round. Sclerae is anicteric. Conjunctiva pink. Mucous members of the mouth are moist. No thrush noted. NECK: Supple. No JVD. No lymphadenopathy. No thyromegaly. LUNGS: Clear to auscultation. Scattered and expiratory wheeze. No intercostal retractions. HEART: Regular rate and rhythm. No murmur. ABDOMEN: Soft. Bowel sounds are present. No masses. No tenderness. EXTREMITIES: There is bilateral lower extremity edema left slightly greater than the right. No calf tenderness.patient complains of generalized pain with minimal movement of his legs. NEUROLOGICAL: Patient is awake, alert and is able to answer most questions appropriately. The patient is able to stand at the bedside momentarily without difficulty. - Labs CBC & Chem 7: 08/21/17 07:01 08/21/17 07:01 Labs: Laboratory Results WBC 5.8 k/uL (3.8-10.6) 08/21/17 07:01 RBC 3.96 m/uL (4.30-5.90) L 08/21/17 07:01 Hgb 12.2 gm/dL (13.0-17.5) L 08/21/17 07:01 Hct 36.4 % (39.0-53.0) L 08/21/17 07:01 MCV 92.0 fL (80.0-100.0) 08/21/17 07:01 MCH 30.8 pg (25.0-35.0) 08/21/17 07:01 MCHC 33.5 g/dL (31.0-37.0) 08/21/17 07:01 RDW 14.9 % (11.5-15.5) 08/21/17 07:01 Plt Count 224 k/uL (150-450) 08/21/17 07:01 Neutrophils % 57 % 08/21/17 07:01 Lymphocytes % 28 % 08/21/17 07:01 Monocytes % 7 % 08/21/17 07:01 Eosinophils % 4 % 08/21/17 07:01 Basophils % 1 % 08/21/17 07:01 Neutrophils # 3.3 k/uL (1.3-7.7) 08/21/17 07:01 Lymphocytes # 1.6 k/uL (1.0-4.8) 08/21/17 07:01 Monocytes # 0.4 k/uL (0-1.0) 08/21/17 07:01 Eosinophils # 0.2 k/uL (0-0.7) 08/21/17 07:01 Basophils # 0.1 k/uL (0-0.2) 08/21/17 07:01 Sodium 141 mmol/L (137-145) 08/21/17 07:01 Potassium 5.0 mmol/L (3.5-5.1) 08/21/17 07:01 Chloride 102 mmol/L (98-107) 08/21/17 07:01 Carbon Dioxide 30 mmol/L (22-30) 08/21/17 07:01 Anion Gap 9 mmol/L 08/21/17 07:01 BUN 14 mg/dL (9-20) 08/21/17 07:01 Creatinine 0.98 mg/dL (0.66-1.25) 08/21/17 07:01 Est GFR (CKD-EPI)AfAm >90 (>60 ml/min/1.73 sqM) 08/21/17 07:01 Est GFR (CKD-EPI)NonAf >90 (>60 ml/min/1.73 sqM) 08/21/17 07:01 Glucose 83 mg/dL (74-99) 08/21/17 07:01 Calcium 9.1 mg/dL (8.4-10.2) 08/21/17 07:01 Assessment and Plan (1) HIV encephalopathy Current Visit: No Status: Acute Code(s): B20 - HUMAN IMMUNODEFICIENCY VIRUS [HIV] DISEASE; G93.40 - ENCEPHALOPATHY, UNSPECIFIED SNOMED Code(s): 153794930 Plan: Patient is sitting up eating his lunch in no distress. Is able to stand briefly to utilize the commode. Does have intermittent difficulties with urinary incontinence. Is related that the social situation has been his biggest issue. Apparently his mother does not believe she can care for him brought him back to Hospital and since she's moving away in 2 weeks and he'll be on his own. Social work is now in the midst of determining best possible plan. The patient to remain on his Sribild as before in hopes that this will allow some improvement of his HIV encephalopathy. As noted during his most recent stay there was no evidence of INTERNAL CONTROL ANALYST syphilis and he was negative for ROEL Polyomavirus, making PML unlikely. For now continue the antiretrovirals and supportive care and placement will be attempted. On 08/21/2017 the patient is showing some improvement already since being admitted. The social work department is working diligently on trying to devise a acceptable discharge plan. The patient's HIV medications should be covered by [employer] and this may assist his placement in rehab or [facility]. 08/24/2017 patient is having some improvement since admission. An ongoing discharge planning is in process. Either rehab or [facility] is being requested. For the colitis been placed on Alquist. Further physical therapy intervention is being requested which may further help with placement. Continue Stribild as before
[2017-08-25] MEDS: ACETAMINOPHEN TAB 325 MG TAB PO PRN ×4 (03:06→23:40)
[2017-08-25] MEDS: NYSTATIN 100,000 UNIT/ML SUSP 500,000 UNIT/5 ML CUP PO SCH ×4 (08:36→21:14)
[2017-08-25] MEDS: GABAPENTIN 300 MG CAP PO SCH ×3 (08:37→21:14)
[2017-08-25] MEDS: APIXABAN 5 MG TAB PO SCH ×2 (08:37→21:14)
[2017-08-25] MEDS: Elviteg/Cobi/Emtric/Tenofo Dis [Stribild Tablet] 1 TAB PO SCH (08:37)
--- NOTE | 2017-08-25 23:19 | P.PN ---
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 patient was discharge to home in the care of his mother while his grandmother was signed as his guardian. He brought in to the emergency room last night because his mother she could not take care of him anymore related to his lower extremity weakness, however patient denies to me any other further complaints. No chest pain, dyspnea, fever, change in urine or bowel habits 08/21/2017 Patient at bedside says his weakness in the lower extremity are improving today. His guardian and guarded mother is at bedside, discussed the case with her and she states that for 3 days after his discharge last time he wasn't getting his HIV medication for no specific reason, and he lost his improvement last time he was in the hospital while he is off his medication. Weakness is improved after restarted medication as per patient On 08/23/2017 Patient failed last night and hit his head, no arthritis, no wounds, patient had some headache with now resolved. Continue with neuro check Neurology saw the patient's and recommended Neurontin and physical therapy and Doppler of lower ext, pt states to me he has pain in his both legs only when uses them and that is been going on for about 2 weeks since he is been discharged last time , his pain is the same and not progressive, while lying in bed he has no pain Patient still pending a placement 08/24/2017 Patient is still complaining of leg pain and PT OT is following. Patient is being continued on anticoagulation. Patient is pending placement at this time. No complaints of chest pain or shortness of breath. No nausea vomiting or abdominal pain. No other acute overnight issues All other review of systems negative except the above Current medications reviewed Objective - Vital Signs Vital signs: Vital Signs Temp 98.1 F 08/24/17 07:31 Pulse 67 08/24/17 07:31 Resp 16 08/24/17 07:31 BP 131/79 08/24/17 07:31 Pulse Ox 98 08/24/17 07:31 Intake & Output 08/23/17 08/24/17 08/24/17 18:59 06:59 18:59 Intake Total 500 Balance 500 Intake: Oral 500 Other: Voiding Method Toilet Urinal Urinal Urinal Diaper Diaper Diaper Incontinent Incontinent Incontinent # Voids 700 1 # Bowel Movements 1 - Exam PHYSICAL EXAMINATION: Patient is lying in the bed comfortably, no acute distress, awake alert and oriented. Patient has generalized weakness. HEENT: Normocephalic. Neck is supple. Pupils reactive. Nostrils clear. Oral cavity is moist. Ears reveal no drainage. Neck reveals no JVD, carotid bruits, or thyromegaly. CHEST EXAMINATION: Trachea is central. Symmetrical expansion. Lung anderson clear to auscultation and percussion. CARDIAC: Normal S1, S2 with no gallops. No murmurs ABDOMEN: Soft. Bowel sounds normal. No organomegaly. No abdominal bruits. Extremities: reveal no edema. No clubbing or cyanosis Neurologically awake, alert, oriented x3 with well-coordinated movements. No focal deficits noted Skin: No rash or skin lesions. Psychiatric: Coperative. Nonsuicidal Musculoskeletal: No joint swelling or deformity. Normal range of motion. - Labs CBC & Chem 7: 08/21/17 07:01 08/21/17 07:01 Assessment and Plan Assessment: 1. severe HIV peripheral neuropathy 2. Bilateral lower extremity weakness, mostly secondary to 1 above 3. HIV encephalopathy history 4. Anemia of chronic disease and 5. Acute right lower extremity DVT Plan: Patient admitted to the hospital for placement, he has difficulty taking care of himself given his lower extremity weakness which is chronic, his grandmother is his guardian and she is at bedside and she is updated with the treatment plan and she is in agreement. ID team evaluation is appreciated, continue with the same HIV treatment. Patient lower extremity weakness has improved . Continue with Neurontin. on HIV medication however they are still weak and he needs placement, social media campaign manager is following on the case. discussed the case with the social media campaign manager on case and updated her with these new finding eg fall , dvt, and the recommendation for short term rehab vs placement as he is at high risk of fall. I offered to talk to the insurance company if needed. and she kindly took notes of this prognosis is guarded still Time with Patient: Greater than 30
--- NOTE | 2017-08-25 23:20 | P.PN ---
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 patient was discharge to home in the care of his mother while his grandmother was signed as his guardian. He brought in to the emergency room last night because his mother she could not take care of him anymore related to his lower extremity weakness, however patient denies to me any other further complaints. No chest pain, dyspnea, fever, change in urine or bowel habits 08/21/2017 Patient at bedside says his weakness in the lower extremity are improving today. His guardian and guarded mother is at bedside, discussed the case with her and she states that for 3 days after his discharge last time he wasn't getting his HIV medication for no specific reason, and he lost his improvement last time he was in the hospital while he is off his medication. Weakness is improved after restarted medication as per patient On 08/23/2017 Patient failed last night and hit his head, no arthritis, no wounds, patient had some headache with now resolved. Continue with neuro check Neurology saw the patient's and recommended Neurontin and physical therapy and Doppler of lower ext, pt states to me he has pain in his both legs only when uses them and that is been going on for about 2 weeks since he is been discharged last time , his pain is the same and not progressive, while lying in bed he has no pain Patient still pending a placement 08/24/2017 Patient is still complaining of leg pain and PT OT is following. Patient is being continued on anticoagulation. Patient is pending placement at this time. No complaints of chest pain or shortness of breath. No nausea vomiting or abdominal pain. No other acute overnight issues. 08/25/2017 Patient says that his pain is better today. Able to sit in the chair. Otherwise participating in physical therapy and able to walk with a walker. Possible transfer to rehab on Saturday. All other review of systems negative except the above Current medications reviewed Objective - Vital Signs Vital signs: Vital Signs Temp 98.2 F 08/25/17 15:00 Pulse 78 08/25/17 15:00 Resp 16 08/25/17 15:00 BP 128/66 08/25/17 15:00 Pulse Ox 97 08/25/17 15:00 Intake & Output 08/24/17 08/25/17 08/25/17 18:59 06:59 18:59 Intake Total 800 Output Total 1240 Balance -1240 800 Intake: Oral 800 Output: Urine 800 Stool 440 Other: Voiding Method Urinal Urinal Urinal Diaper Diaper Diaper Incontinent Incontinent Incontinent # Voids 4 3 - Exam PHYSICAL EXAMINATION: Patient is lying in the bed comfortably, no acute distress, awake alert and oriented. Patient has generalized weakness. HEENT: Normocephalic. Neck is supple. Pupils reactive. Nostrils clear. Oral cavity is moist. Ears reveal no drainage. Neck reveals no JVD, carotid bruits, or thyromegaly. CHEST EXAMINATION: Trachea is central. Symmetrical expansion. Lung anderson clear to auscultation and percussion. CARDIAC: Normal S1, S2 with no gallops. No murmurs ABDOMEN: Soft. Bowel sounds normal. No organomegaly. No abdominal bruits. Extremities: reveal no edema. No clubbing or cyanosis Neurologically awake, alert, oriented x3 with well-coordinated movements. No focal deficits noted Skin: No rash or skin lesions. Psychiatric: Coperative. Nonsuicidal Musculoskeletal: No joint swelling or deformity. Normal range of motion. - Labs CBC & Chem 7: 08/21/17 07:01 08/21/17 07:01 Assessment and Plan Assessment: 1. severe HIV peripheral neuropathy 2. Bilateral lower extremity weakness, mostly secondary to 1 above 3. HIV encephalopathy history 4. Anemia of chronic disease and 5. Acute right lower extremity DVT Plan: Patient admitted to the hospital for placement, he has difficulty taking care of himself given his lower extremity weakness which is chronic, his grandmother is his guardian and she is at bedside and she is updated with the treatment plan and she is in agreement. ID team evaluation is appreciated, continue with the same HIV treatment. Patient lower extremity weakness has improved . Continue with Neurontin. on HIV medication however they are still weak and he needs placement, dialysis social worker is following on the case. discussed the case with the dialysis social worker on case and updated her with these new finding eg fall , dvt, and the recommendation for short term rehab vs placement as he is at high risk of fall. I offered to talk to the [employer] if needed. and she kindly took notes of this prognosis is guarded still Time with Patient: Greater than 30
[2017-08-26 07:55] LABS: Basophils % (A) 1 %; Eosinophils # (A) 0.2 k/uL (0-0.7); Eosinophils % (A) 3 %; HCT 35.1 % (39.0-53.0); HGB 11.5 gm/dL (13.0-17.5); Lymphocytes # (A) 1.3 k/uL (1.0-4.8); Lymphocytes % (A) 22 %; MCH 30.9 pg (25.0-35.0); MCHC 32.7 g/dL (31.0-37.0); MCV 94.5 fL (80.0-100.0); Monocytes # (A) 0.5 k/uL (0-1.0); Monocytes % (A) 9 %; Neutrophils # (A) 3.8 k/uL (1.3-7.7); Neutrophils % (A) 63 %; Platelet Count 336 k/uL (150-450); RBC 3.72 m/uL (4.30-5.90); RDW 14.8 % (11.5-15.5)
[2017-08-26 08:21] LABS: Anion Gap 13 mmol/L; Blood Urea Nitrogen 16 mg/dL (9-20); Calcium 9.7 mg/dL (8.4-10.2); Carbon Dioxide 30 mmol/L (22-30); Chloride 99 mmol/L (98-107); Glucose 96 mg/dL (74-99); Potassium 4.4 mmol/L (3.5-5.1); Sodium 142 mmol/L (137-145)
[2017-08-26] MEDS: ACETAMINOPHEN TAB 325 MG TAB PO PRN ×2 (10:22→17:47)
[2017-08-26] MEDS: NYSTATIN 100,000 UNIT/ML SUSP 500,000 UNIT/5 ML CUP PO SCH ×4 (10:23→21:29)
[2017-08-26] MEDS: APIXABAN 5 MG TAB PO SCH ×2 (10:23→21:29)
[2017-08-26] MEDS: GABAPENTIN 300 MG CAP PO SCH ×3 (10:23→21:28)
[2017-08-26] MEDS: Elviteg/Cobi/Emtric/Tenofo Dis [Stribild Tablet] 1 TAB PO SCH (10:23)
--- NOTE | 2017-08-26 13:32 | CT ---
EXAMINATION TYPE: CT brain wo con DATE OF EXAM: 08/26/2017 COMPARISON: July 08, 2017 HISTORY: Headache CT DLP: 806.[address] of the brain was performed. The ventricles, basal cisterns and sulci overlying the cerebral convexities demonstrate moderate enla rgement for the patient's age group unchanged from prior examination. There is no evidence for intracranial hemorrhage or sulcal effacement. No mass effects are seen. Osseous calvarium is intact. Mucosal thickening noted of the maxillary sinuses. If symptoms persist consider MRI as clinically warranted. IMPRESSION: 1. No acute intracranial process is seen at this time.
--- NOTE | 2017-08-26 18:37 | P.PN ---
Subjective Progress Note Date: 08/26/17 Progress note being dictated for Dr. 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 patient was discharge to home in the care of his mother while his grandmother was signed as his guardian. He brought in to the emergency room last night because his mother she could not take care of him anymore related to his lower extremity weakness, however patient denies to me any other further complaints. No chest pain, dyspnea, fever, change in urine or bowel habits 08/21/2017 Patient at bedside says his weakness in the lower extremity are improving today. His guardian and guarded mother is at bedside, discussed the case with her and she states that for 3 days after his discharge last time he wasn't getting his HIV medication for no specific reason, and he lost his improvement last time he was in the hospital while he is off his medication. Weakness is improved after restarted medication as per patient On 08/23/2017 Patient failed last night and hit his head, no arthritis, no wounds, patient had some headache with now resolved. Continue with neuro check Neurology saw the patient's and recommended Neurontin and physical therapy and Doppler of lower ext, pt states to me he has pain in his both legs only when uses them and that is been going on for about 2 weeks since he is been discharged last time , his pain is the same and not progressive, while lying in bed he has no pain Patient still pending a placement 08/24/2017 Patient is still complaining of leg pain and PT OT is following. Patient is being continued on anticoagulation. Patient is pending placement at this time. No complaints of chest pain or shortness of breath. No nausea vomiting or abdominal pain. No other acute overnight issues. 08/25/2017 Patient says that his pain is better today. Able to sit in the chair. Otherwise participating in physical therapy and able to walk with a walker. Possible transfer to rehab on Saturday. All other review of systems negative except the above Current medications reviewed 08/26/2017 no overnight events. Generalized weakness persists. Good diet intake. Complains of frontal headache.CT of head performed reporting no acute intracranial process; ventricles, basal cisterns and sulci-moderate enlargement unchanged from prior exam. Denies chest pain, palpitations or increasing shortness of breath. Denies abdominal pain, nausea vomiting. Discharge planning in progress for subacute rehab, placement pending as per social work. Objective - Vital Signs Vital signs: Vital Signs Temp 97.5 F L 08/26/17 14:33 Pulse 74 08/26/17 14:33 Resp 18 08/26/17 14:33 BP 121/63 08/26/17 14:33 Pulse Ox 96 08/26/17 14:33 Intake & Output 08/25/17 08/26/17 08/26/17 18:59 06:59 18:59 Intake Total 930 Output Total 400 Balance 930 -400 Weight 90.718 kg 90.718 kg Intake: Oral 930 Output: Urine 400 Other: Voiding Method Urinal Urinal Urinal Diaper Diaper Incontinent Incontinent Incontinent # Voids 3 6 1 # Bowel Movements 1 - Exam Patient is lying in the bed comfortably, no acute distress, awake alert and oriented 3. HEENT: Normocephalic. Neck is supple. Pupils reactive. Nostrils clear. Oral cavity is moist. Neck reveals no JVD, carotid bruits, or thyromegaly. CHEST EXAMINATION: Trachea is central. Symmetrical expansion. Lung anderson clear to auscultation and percussion. CARDIAC: Normal S1, S2 with no gallops. No murmurs ABDOMEN: Soft. Bowel sounds normal. No organomegaly. No abdominal bruits. Extremities: reveal no edema. No clubbing or cyanosis Neurologically awake, alert, oriented x3 with well-coordinated movements. No focal deficits noted Skin: No rash or skin lesions. Psychiatric: Coperative. Nonsuicidal Musculoskeletal: No joint swelling or deformity. Normal range of motion. Generalized weakness. - Labs CBC & Chem 7: 08/26/17 07:41 08/26/17 07:41 Labs: Abnormal Lab Results - Last 24 Hours (Table) 08/26/17 Range/Units 07:41 RBC 3.72 L (4.30-5.90) m/uL Hgb 11.5 L (13.0-17.5) gm/dL Hct 35.1 L (39.0-53.0) % Assessment and Plan Assessment: 1. severe HIV peripheral neuropathy 2. Bilateral lower extremity weakness, mostly secondary to 1 above 3. HIV encephalopathy history 4. Anemia of chronic disease and 5. Acute right lower extremity DVT Plan: Continue on current medication regime , Eliquis, monitoring and symptomatic treatment. HIV treatment as per infectious disease. Discharge planning in progress, subacute rehab placement pending. The impression and plan of care has been dictated as directed. : I performed a history and examination of this patient, discussed the same with the dictator. I agree with the dictator's note ,documented as a scribe. Any additional findings or plans will be noted.
--- NOTE | 2017-08-26 23:21 | P.PN ---
Subjective Progress Note Date: 08/26/17 his is a 27-year-old Af[place] male who had a recent hospitalization on at which time he presented with bilateral lower extremity weakness and broad-based gait. Been progressively getting worse for 2 months. Patient had a history of HIV diagnosed in 2008 but did not seek treatment. He had an extensive workup during his hospitalization including CAT scan, lumbar puncture , MRI of the brain and lumbar spine. He was seen by ID services as well as neurology and psychiatry. He was diagnosed with HIV with HIV encephalopathy and during his stay he was started on Stribild. His grandmother obtained guardianship but was resistant to discharge planning for AFC or nursing home. Extended care facilities would not accept the patient due to cost of HIV medication. Patient was discharged home living with his mother and has now returned to [facility] emergency center with same complaints of lower extremity pain and weakness but mother did relate to the ER physician that they have to move out of their house in 2 weeks and she is not able to take care of him and he needs long-term facility. Case management is following as well as social work will be following the patient. Patient may need a new guardian in place to better address patient's needs. Patient continues to complain of the pain in his lower legs and difficulty walking. He states his appetite is okay. He denies having any fever or chills. He denies any shortness of breath or chest pain. He is concerned for initiating urinary flow. He denies any pain with urination. On 08/21/2017 the patient is feeling better. He believes that his mentation is clear. He was up with a walker into the hallway, and is admitted to the restroom also. Does have some difficulties with urinary incontinence. Appetite is good and he is eating well. 08/24/2017 patient continues to have some improvement but is had some swelling to his lower extremities and a follow-up ultrasound of the right leg no shows evidence of a deep venous thrombosis that and I was not present on 08/06/2017. Patient does not have any other new complaints. Discharge plan remains the greatest difficulty at this time. 08/26/2017 finds the patient to be some further improvement. With physical therapy he got up with a walker and got to the hallway again. Tolerating his HIV medications without difficulty. He is eating well and denies other acute new troubles. Remains completely fixated on his urination Objective - Vital Signs Vital signs: Vital Signs Temp 98 F 08/26/17 22:00 Pulse 78 08/26/17 22:00 Resp 18 08/26/17 22:00 BP 135/76 08/26/17 22:00 Pulse Ox 100 08/26/17 22:00 Intake & Output 08/26/17 08/26/17 08/27/17 06:59 18:59 06:59 Intake Total 930 Output Total 400 Balance 930 -400 Weight 90.718 kg 90.718 kg Intake: Oral 930 Output: Urine 400 Other: Voiding Method Urinal Urinal Diaper Incontinent Incontinent # Voids 6 1 2 # Bowel Movements 1 - Exam Gen: This is a 27-year-old -[place] male. He is sitting in a chair at the bedside and appears to be comfortable and in no acute distress. HEENT: Head is atraumatic, normocephalic. Pupils equal, round. Sclerae is anicteric. Conjunctiva pink. Mucous members of the mouth are moist. No thrush noted. NECK: Supple. No JVD. No lymphadenopathy. No thyromegaly. LUNGS: Clear to auscultation. Scattered and expiratory wheeze. No intercostal retractions. HEART: Regular rate and rhythm. No murmur. ABDOMEN: Soft. Bowel sounds are present. No masses. No tenderness. EXTREMITIES: There is bilateral lower extremity edema left slightly greater than the right. No calf tenderness.patient complains of generalized pain with minimal movement of his legs. NEUROLOGICAL: Patient is awake, alert and is able to answer most questions appropriately. The patient is able to stand at the bedside momentarily without difficulty. - Labs CBC & Chem 7: 08/26/17 07:41 08/26/17 07:41 Labs: Abnormal Lab Results - Last 24 Hours (Table) 08/26/17 Range/Units 07:41 RBC 3.72 L (4.30-5.90) m/uL Hgb 11.5 L (13.0-17.5) gm/dL Hct 35.1 L (39.0-53.0) % Laboratory Results WBC 6.0 k/uL (3.8-10.6) 08/26/17 07:41 RBC 3.72 m/uL (4.30-5.90) L 08/26/17 07:41 Hgb 11.5 gm/dL (13.0-17.5) L 08/26/17 07:41 Hct 35.1 % (39.0-53.0) L 08/26/17 07:41 MCV 94.5 fL (80.0-100.0) 08/26/17 07:41 MCH 30.9 pg (25.0-35.0) 08/26/17 07:41 MCHC 32.7 g/dL (31.0-37.0) 08/26/17 07:41 RDW 14.8 % (11.5-15.5) 08/26/17 07:41 Plt Count 336 k/uL (150-450) 08/26/17 07:41 Neutrophils % 63 % 08/26/17 07:41 Lymphocytes % 22 % 08/26/17 07:41 Monocytes % 9 % 08/26/17 07:41 Eosinophils % 3 % 08/26/17 07:41 Basophils % 1 % 08/26/17 07:41 Neutrophils # 3.8 k/uL (1.3-7.7) 08/26/17 07:41 Lymphocytes # 1.3 k/uL (1.0-4.8) 08/26/17 07:41 Monocytes # 0.5 k/uL (0-1.0) 08/26/17 07:41 Eosinophils # 0.2 k/uL (0-0.7) 08/26/17 07:41 Basophils # 0.0 k/uL (0-0.2) 08/26/17 07:41 Sodium 142 mmol/L (137-145) 08/26/17 07:41 Potassium 4.4 mmol/L (3.5-5.1) 08/26/17 07:41 Chloride 99 mmol/L (98-107) 08/26/17 07:41 Carbon Dioxide 30 mmol/L (22-30) 08/26/17 07:41 Anion Gap 13 mmol/L 08/26/17 07:41 BUN 16 mg/dL (9-20) 08/26/17 07:41 Creatinine 1.00 mg/dL (0.66-1.25) 08/26/17 07:41 Est GFR (CKD-EPI)AfAm >90 (>60 ml/min/1.73 sqM) 08/26/17 07:41 Est GFR (CKD-EPI)NonAf >90 (>60 ml/min/1.73 sqM) 08/26/17 07:41 Glucose 96 mg/dL (74-99) 08/26/17 07:41 Calcium 9.7 mg/dL (8.4-10.2) 08/26/17 07:41 Assessment and Plan (1) HIV encephalopathy Current Visit: No Status: Acute Code(s): B20 - HUMAN IMMUNODEFICIENCY VIRUS [HIV] DISEASE; G93.40 - ENCEPHALOPATHY, UNSPECIFIED SNOMED Code(s): 889808312 Plan: Patient is sitting up eating his lunch in no distress. Is able to stand briefly to utilize the commode. Does have intermittent difficulties with urinary incontinence. Is related that the social situation has been his biggest issue. Apparently his mother does not believe she can care for him brought him back to Hospital and since she's moving away in 2 weeks and he'll be on his own. Social work is now in the midst of determining best possible plan. The patient to remain on his Sribild as before in hopes that this will allow some improvement of his HIV encephalopathy. As noted during his most recent stay there was no evidence of WELL BLOWER syphilis and he was negative for ROEL Polyomavirus, making PML unlikely. For now continue the antiretrovirals and supportive care and placement will be attempted. On 08/21/2017 the patient is showing some improvement already since being admitted. The social work department is working diligently on trying to devise a acceptable discharge plan. The patient's HIV medications should be covered by [facility] and this may assist his placement in rehab or AFC. 08/24/2017 patient is having some improvement since admission. An ongoing discharge planning is in process. Either rehab or AFC is being requested. For the DVT been placed on Eliquis. Further physical therapy intervention is being requested which may further help with placement. Continue Stribild as before 08/26/2017 patient is stable no complaints of new pain or discomfort of the lower extremities. No difficulties with Eliquis for the DVT, continue the Stribild as before for treatment of his HIV and AIDS. Placement remains the single with difficult aspect of his overall care.
[2017-08-27] MEDS: ACETAMINOPHEN TAB 325 MG TAB PO PRN ×3 (02:31→17:57)
[2017-08-27] MEDS: Elviteg/Cobi/Emtric/Tenofo Dis [Stribild Tablet] 1 TAB PO SCH (08:23)
[2017-08-27] MEDS: NYSTATIN 100,000 UNIT/ML SUSP 500,000 UNIT/5 ML CUP PO SCH ×4 (08:23→22:23)
[2017-08-27] MEDS: APIXABAN 5 MG TAB PO SCH ×2 (08:23→22:21)
[2017-08-27] MEDS: GABAPENTIN 300 MG CAP PO SCH ×3 (08:23→22:21)
--- NOTE | 2017-08-27 15:36 | P.PN ---
Subjective Progress Note Date: 08/27/17 Progress note being dictated for Dr. 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 patient was discharge to home in the care of his mother while his grandmother was signed as his guardian. He brought in to the emergency room last night because his mother she could not take care of him anymore related to his lower extremity weakness, however patient denies to me any other further complaints. No chest pain, dyspnea, fever, change in urine or bowel habits 08/21/2017 Patient at bedside says his weakness in the lower extremity are improving today. His guardian and guarded mother is at bedside, discussed the case with her and she states that for 3 days after his discharge last time he wasn't getting his HIV medication for no specific reason, and he lost his improvement last time he was in the hospital while he is off his medication. Weakness is improved after restarted medication as per patient On 08/23/2017 Patient failed last night and hit his head, no arthritis, no wounds, patient had some headache with now resolved. Continue with neuro check Neurology saw the patient's and recommended Neurontin and physical therapy and Doppler of lower ext, pt states to me he has pain in his both legs only when uses them and that is been going on for about 2 weeks since he is been discharged last time , his pain is the same and not progressive, while lying in bed he has no pain Patient still pending a placement 08/24/2017 Patient is still complaining of leg pain and PT OT is following. Patient is being continued on anticoagulation. Patient is pending placement at this time. No complaints of chest pain or shortness of breath. No nausea vomiting or abdominal pain. No other acute overnight issues. 08/25/2017 Patient says that his pain is better today. Able to sit in the chair. Otherwise participating in physical therapy and able to walk with a walker. Possible transfer to rehab on Saturday. All other review of systems negative except the above Current medications reviewed 08/26/2017 no overnight events. Generalized weakness persists. Good diet intake. Complains of frontal headache.CT of head performed reporting no acute intracranial process; ventricles, basal cisterns and sulci-moderate enlargement unchanged from prior exam. Denies chest pain, palpitations or increasing shortness of breath. Denies abdominal pain, nausea vomiting. Discharge planning in progress for subacute rehab, placement pending as per social work. 08/27/2017 maintained on Eliquis for DVT. Continues on Stribild for HIV/AIDS as per ID. Good diet intake. no overnight events. Objective - Vital Signs Vital signs: Vital Signs Temp 98.4 F 08/27/17 14:11 Pulse 90 08/27/17 14:11 Resp 16 08/27/17 14:11 BP 129/70 08/27/17 14:11 Pulse Ox 95 08/27/17 14:11 Intake & Output 08/26/17 08/27/17 08/27/17 18:59 06:59 18:59 Intake Total 600 2600 Output Total 400 440 Balance -508 405 9252 Weight 90.718 kg Intake: Oral 600 2600 Output: Urine 400 Stool 440 Other: Voiding Method Urinal Urinal Urinal Incontinent Incontinent Incontinent # Voids 1 5 5 # Bowel Movements 1 - Exam Patient is lying in the bed comfortably, no acute distress, awake alert and oriented 3. HEENT: Normocephalic. Neck is supple. Pupils reactive. Oral cavity is moist. Neck supple, no JVD, CHEST EXAMINATION: Trachea is central. Symmetrical expansion. Lung anderson clear to auscultation and percussion. CARDIAC: Normal S1, S2 with no gallops. No murmurs ABDOMEN: Soft. Bowel sounds normal. No organomegaly. No abdominal bruits. Extremities: reveal no edema. No clubbing or cyanosis Neurologically awake, alert, oriented x3 with well-coordinated movements. No focal deficits noted Skin: No rash or skin lesions. Psychiatric: Coperative. Nonsuicidal Musculoskeletal: No joint swelling or deformity. Normal range of motion. Generalized weakness. - Labs CBC & Chem 7: 08/26/17 07:41 08/26/17 07:41 Assessment and Plan Assessment: 1. severe HIV peripheral neuropathy 2. Bilateral lower extremity weakness, mostly secondary to 1 above 3. HIV encephalopathy history 4. Anemia of chronic disease and 5. Acute right lower extremity DVT Plan: Continue on current medication regime , Eliquis, monitoring and symptomatic treatment. PT/OT. HIV/AIDS treatment as per infectious disease. Subacute rehab placement pending. The impression and plan of care has been dictated as directed. : I performed a history and examination of this patient, discussed the same with the dictator. I agree with the dictator's note ,documented as a scribe. Any additional findings or plans will be noted.
[2017-08-28] MEDS: ACETAMINOPHEN TAB 325 MG TAB PO PRN ×4 (00:10→21:39)
[2017-08-28] MEDS: GABAPENTIN 300 MG CAP PO SCH ×3 (07:48→21:34)
[2017-08-28] MEDS: APIXABAN 5 MG TAB PO SCH ×2 (07:48→21:34)
[2017-08-28] MEDS: Elviteg/Cobi/Emtric/Tenofo Dis [Stribild Tablet] 1 TAB PO SCH (07:49)
[2017-08-28] MEDS: NYSTATIN 100,000 UNIT/ML SUSP 500,000 UNIT/5 ML CUP PO SCH ×4 (07:49→21:34)
--- NOTE | 2017-08-28 12:32 | P.PN ---
Subjective Progress Note Date: 08/28/17 Progress note being dictated for Dr. 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 patient was discharge to home in the care of his mother while his grandmother was signed as his guardian. He brought in to the emergency room last night because his mother she could not take care of him anymore related to his lower extremity weakness, however patient denies to me any other further complaints. No chest pain, dyspnea, fever, change in urine or bowel habits 08/21/2017 Patient at bedside says his weakness in the lower extremity are improving today. His guardian and guarded mother is at bedside, discussed the case with her and she states that for 3 days after his discharge last time he wasn't getting his HIV medication for no specific reason, and he lost his improvement last time he was in the hospital while he is off his medication. Weakness is improved after restarted medication as per patient On 08/23/2017 Patient failed last night and hit his head, no arthritis, no wounds, patient had some headache with now resolved. Continue with neuro check Neurology saw the patient's and recommended Neurontin and physical therapy and Doppler of lower ext, pt states to me he has pain in his both legs only when uses them and that is been going on for about 2 weeks since he is been discharged last time , his pain is the same and not progressive, while lying in bed he has no pain Patient still pending a placement 08/24/2017 Patient is still complaining of leg pain and PT OT is following. Patient is being continued on anticoagulation. Patient is pending placement at this time. No complaints of chest pain or shortness of breath. No nausea vomiting or abdominal pain. No other acute overnight issues. 08/25/2017 Patient says that his pain is better today. Able to sit in the chair. Otherwise participating in physical therapy and able to walk with a walker. Possible transfer to rehab on Saturday. All other review of systems negative except the above Current medications reviewed 08/26/2017 no overnight events. Generalized weakness persists. Good diet intake. Complains of frontal headache.CT of head performed reporting no acute intracranial process; ventricles, basal cisterns and sulci-moderate enlargement unchanged from prior exam. Denies chest pain, palpitations or increasing shortness of breath. Denies abdominal pain, nausea vomiting. Discharge planning in progress for subacute rehab, placement pending as per social work. 08/27/2017 maintained on Eliquis for DVT. Continues on Stribild for HIV/AIDS as per ID. Good diet intake. no overnight events. 08/28/2017 no overnight events. Good diet intake, no nausea, vomiting or diarrhea. Denies chest pain, palpitations or increased shortness of breath.Generalized weakness persists. Objective - Vital Signs Vital signs: Vital Signs Temp 98.1 F 08/28/17 06:22 Pulse 92 08/28/17 08:00 Resp 16 08/28/17 08:00 BP 122/81 08/28/17 06:22 Pulse Ox 97 08/28/17 06:22 Intake & Output 08/27/17 08/28/17 08/28/17 18:59 06:59 18:59 Intake Total 2600 600 Balance 2600 600 Intake: Oral 2600 600 Other: Voiding Method Urinal Urinal Urinal Incontinent Incontinent Incontinent # Voids 5 4 - Exam Patient is sitting up in bed, no acute distress, awake alert and oriented 3. HEENT: Normocephalic. Neck is supple. Pupils reactive. Oral cavity moist. Neck supple, no JVD, CHEST EXAMINATION: Trachea is central. Symmetrical expansion. Lung anderson clear to auscultation and percussion. CARDIAC: Normal S1, S2 with no gallops. No murmurs ABDOMEN: Soft. Bowel sounds normal. No organomegaly. No abdominal bruits. Extremities: reveal no edema. No clubbing or cyanosis Neurologically awake, alert, oriented x3 with well-coordinated movements. No focal deficits noted Skin: No rash or skin lesions. Psychiatric: Coperative. Nonsuicidal Musculoskeletal: No joint swelling or deformity. Normal range of motion. Generalized weakness. - Labs CBC & Chem 7: 08/26/17 07:41 08/26/17 07:41 Assessment and Plan Assessment: 1. severe HIV peripheral neuropathy 2. Bilateral lower extremity weakness, mostly secondary to 1 above 3. HIV encephalopathy history 4. Anemia of chronic disease and 5. Acute right lower extremity DVT Plan: Continue on current medication regime , Eliquis, monitoring and symptomatic treatment. PT/OT. HIV treatment as per infectious disease. Discharge planning in progress pending subacute rehab placement. The impression and plan of care has been dictated as directed. : I performed a history and examination of this patient, discussed the same with the dictator. I agree with the dictator's note ,documented as a scribe. Any additional findings or plans will be noted.
--- NOTE | 2017-08-28 21:03 | P.PN ---
Subjective Progress Note Date: 08/28/17 his is a 27-year-old Afro-[place] male who had a recent hospitalization on at which time he presented with bilateral lower extremity weakness and broad-based gait. Been progressively getting worse for 2 months. Patient had a history of HIV diagnosed in 2008 but did not seek treatment. He had an extensive workup during his hospitalization including CAT scan, lumbar puncture , MRI of the brain and lumbar spine. He was seen by ID services as well as neurology and psychiatry. He was diagnosed with HIV with HIV encephalopathy and during his stay he was started on Stribild. His grandmother obtained guardianship but was resistant to discharge planning for [facility] or senior living. Extended care facilities would not accept the patient due to cost of HIV medication. Patient was discharged home living with his mother and has now returned to [facility] emergency center with same complaints of lower extremity pain and weakness but mother did relate to the ER physician that they have to move out of their house in 2 weeks and she is not able to take care of him and he needs long-term facility. Case management is following as well as social work will be following the patient. Patient may need a new guardian in place to better address patient's needs. Patient continues to complain of the pain in his lower legs and difficulty walking. He states his appetite is okay. He denies having any fever or chills. He denies any shortness of breath or chest pain. He is concerned for initiating urinary flow. He denies any pain with urination. On 08/21/2017 the patient is feeling better. He believes that his mentation is clear. He was up with a walker into the hallway, and is admitted to the restroom also. Does have some difficulties with urinary incontinence. Appetite is good and he is eating well. 08/24/2017 patient continues to have some improvement but is had some swelling to his lower extremities and a follow-up ultrasound of the right leg no shows evidence of a deep venous thrombosis that and I was not present on 08/06/2017. Patient does not have any other new complaints. Discharge plan remains the greatest difficulty at this time. 08/26/2017 finds the patient to be some further improvement. With physical therapy he got up with a walker and got to the hallway again. Tolerating his HIV medications without difficulty. He is eating well and denies other acute new troubles. Remains completely fixated on his urination 08/28/2017 patient seems to be doing slightly better. He is up with a walker and is able to get into the hallway. No further difficulties with his nutrition. Remains fixated on his urination. Objective - Vital Signs Vital signs: Vital Signs Temp 98.5 F 08/28/17 15:35 Pulse 92 08/28/17 15:46 Resp 16 08/28/17 15:46 BP 122/76 08/28/17 15:35 Pulse Ox 99 08/28/17 15:35 Intake & Output 08/28/17 08/28/17 08/29/17 06:59 18:59 06:59 Intake Total 2300 Balance 2300 Intake: Oral 2300 Other: Voiding Method Urinal Urinal Incontinent Incontinent # Voids 4 5 - Exam Gen: This is a 27-year-old -[place] male. He is sitting in a chair at the bedside and appears to be comfortable and in no acute distress. HEENT: Head is atraumatic, normocephalic. Pupils equal, round. Sclerae is anicteric. Conjunctiva pink. Mucous members of the mouth are moist. No thrush noted. NECK: Supple. No JVD. No lymphadenopathy. No thyromegaly. LUNGS: Clear to auscultation. Scattered and expiratory wheeze. No intercostal retractions. HEART: Regular rate and rhythm. No murmur. ABDOMEN: Soft. Bowel sounds are present. No masses. No tenderness. EXTREMITIES: There is bilateral lower extremity edema left slightly greater than the right. No calf tenderness.patient complains of generalized pain with minimal movement of his legs. NEUROLOGICAL: Patient is awake, alert and is able to answer most questions appropriately. The patient is able to stand at the bedside momentarily without difficulty. - Labs CBC & Chem 7: 08/26/17 07:41 08/26/17 07:41 Labs: Laboratory Results WBC 6.0 k/uL (3.8-10.6) 08/26/17 07:41 RBC 3.72 m/uL (4.30-5.90) L 08/26/17 07:41 Hgb 11.5 gm/dL (13.0-17.5) L 08/26/17 07:41 Hct 35.1 % (39.0-53.0) L 08/26/17 07:41 MCV 94.5 fL (80.0-100.0) 08/26/17 07:41 MCH 30.9 pg (25.0-35.0) 08/26/17 07:41 MCHC 32.7 g/dL (31.0-37.0) 08/26/17 07:41 RDW 14.8 % (11.5-15.5) 08/26/17 07:41 Plt Count 336 k/uL (150-450) 08/26/17 07:41 Neutrophils % 63 % 08/26/17 07:41 Lymphocytes % 22 % 08/26/17 07:41 Monocytes % 9 % 08/26/17 07:41 Eosinophils % 3 % 08/26/17 07:41 Basophils % 1 % 08/26/17 07:41 Neutrophils # 3.8 k/uL (1.3-7.7) 08/26/17 07:41 Lymphocytes # 1.3 k/uL (1.0-4.8) 08/26/17 07:41 Monocytes # 0.5 k/uL (0-1.0) 08/26/17 07:41 Eosinophils # 0.2 k/uL (0-0.7) 08/26/17 07:41 Basophils # 0.0 k/uL (0-0.2) 08/26/17 07:41 Sodium 142 mmol/L (137-145) 08/26/17 07:41 Potassium 4.4 mmol/L (3.5-5.1) 08/26/17 07:41 Chloride 99 mmol/L (98-107) 08/26/17 07:41 Carbon Dioxide 30 mmol/L (22-30) 08/26/17 07:41 Anion Gap 13 mmol/L 08/26/17 07:41 BUN 16 mg/dL (9-20) 08/26/17 07:41 Creatinine 1.00 mg/dL (0.66-1.25) 08/26/17 07:41 Est GFR (CKD-EPI)AfAm >90 (>60 ml/min/1.73 sqM) 08/26/17 07:41 Est GFR (CKD-EPI)NonAf >90 (>60 ml/min/1.73 sqM) 08/26/17 07:41 Glucose 96 mg/dL (74-99) 08/26/17 07:41 Calcium 9.7 mg/dL (8.4-10.2) 08/26/17 07:41 Assessment and Plan (1) HIV encephalopathy Current Visit: No Status: Acute Code(s): B20 - HUMAN IMMUNODEFICIENCY VIRUS [HIV] DISEASE; G93.40 - ENCEPHALOPATHY, UNSPECIFIED SNOMED Code(s): 922393417 Plan: Patient is sitting up eating his lunch in no distress. Is able to stand briefly to utilize the commode. Does have intermittent difficulties with urinary incontinence. Is related that the social situation has been his biggest issue. Apparently his mother does not believe she can care for him brought him back to Hospital and since she's moving away in 2 weeks and he'll be on his own. Social work is now in the midst of determining best possible plan. The patient to remain on his Sribild as before in hopes that this will allow some improvement of his HIV encephalopathy. As noted during his most recent stay there was no evidence of [employer] syphilis and he was negative for ROEL Polyomavirus, making PML unlikely. For now continue the antiretrovirals and supportive care and placement will be attempted. On 08/21/2017 the patient is showing some improvement already since being admitted. The social work department is working diligently on trying to devise a acceptable discharge plan. The patient's HIV medications should be covered by [employer] and this may assist his placement in rehab or [facility]. 08/24/2017 patient is having some improvement since admission. An ongoing discharge planning is in process. Either rehab or [facility] is being requested. For the DVT been placed on Eliquis. Further physical therapy intervention is being requested which may further help with placement. Continue Stribild as before 08/26/2017 patient is stable no complaints of new pain or discomfort of the lower extremities. No difficulties with Eliquis for the DVT, continue the Stribild as before for treatment of his HIV and AIDS. Placement remains the single with difficult aspect of his overall care. 08/28/2017 patient remained stable and tolerating Stribild for his HIV treatment. Eliquis is also being tolerated for his DVT. It is related to the social work program that he likely will be able to be transferred to an adult foster halfway in the near future. We'll be happy to follow in the office for his ongoing treatment of his HIV
[2017-08-29] MEDS: ACETAMINOPHEN TAB 325 MG TAB PO PRN ×2 (07:25→20:15)
[2017-08-29] MEDS: GABAPENTIN 300 MG CAP PO SCH ×3 (08:24→21:22)
[2017-08-29] MEDS: Elviteg/Cobi/Emtric/Tenofo Dis [Stribild Tablet] 1 TAB PO SCH (08:24)
[2017-08-29] MEDS: NYSTATIN 100,000 UNIT/ML SUSP 500,000 UNIT/5 ML CUP PO SCH ×4 (08:24→21:22)
[2017-08-29] MEDS: APIXABAN 5 MG TAB PO SCH ×2 (08:25→21:22)
--- NOTE | 2017-08-29 15:23 | P.PN ---
Subjective Progress note being dictated for Dr. 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 patient was discharge to home in the care of his mother while his grandmother was signed as his guardian. He brought in to the emergency room last night because his mother she could not take care of him anymore related to his lower extremity weakness, however patient denies to me any other further complaints. No chest pain, dyspnea, fever, change in urine or bowel habits 08/21/2017 Patient at bedside says his weakness in the lower extremity are improving today. His guardian and guarded mother is at bedside, discussed the case with her and she states that for 3 days after his discharge last time he wasn't getting his HIV medication for no specific reason, and he lost his improvement last time he was in the hospital while he is off his medication. Weakness is improved after restarted medication as per patient On 08/23/2017 Patient failed last night and hit his head, no arthritis, no wounds, patient had some headache with now resolved. Continue with neuro check Neurology saw the patient's and recommended Neurontin and physical therapy and Doppler of lower ext, pt states to me he has pain in his both legs only when uses them and that is been going on for about 2 weeks since he is been discharged last time , his pain is the same and not progressive, while lying in bed he has no pain Patient still pending a placement 08/24/2017 Patient is still complaining of leg pain and PT OT is following. Patient is being continued on anticoagulation. Patient is pending placement at this time. No complaints of chest pain or shortness of breath. No nausea vomiting or abdominal pain. No other acute overnight issues. 08/25/2017 Patient says that his pain is better today. Able to sit in the chair. Otherwise participating in physical therapy and able to walk with a walker. Possible transfer to rehab on Saturday. All other review of systems negative except the above Current medications reviewed 08/26/2017 no overnight events. Generalized weakness persists. Good diet intake. Complains of frontal headache.CT of head performed reporting no acute intracranial process; ventricles, basal cisterns and sulci-moderate enlargement unchanged from prior exam. Denies chest pain, palpitations or increasing shortness of breath. Denies abdominal pain, nausea vomiting. Discharge planning in progress for subacute rehab, placement pending as per social work. 08/27/2017 maintained on Eliquis for DVT. Continues on Stribild for HIV/AIDS as per ID. Good diet intake. no overnight events. 08/28/2017 no overnight events. Good diet intake, no nausea, vomiting or diarrhea. Denies chest pain, palpitations or increased shortness of breath.Generalized weakness persists. 08/29/2017 no overnight events. Ambulating with walker. [facility] scheduled to evaluate patient for potential placement. Denies chest pain, palpitations or shortness of breath. Objective - Vital Signs Vital signs: Vital Signs Temp 97.4 F L 08/29/17 05:30 Pulse 71 08/29/17 08:00 Resp 16 08/29/17 08:00 BP 118/77 08/29/17 05:30 Pulse Ox 97 08/29/17 05:30 Intake & Output 08/28/17 08/29/17 08/29/17 18:59 06:59 18:59 Intake Total 2300 1800 800 Output Total 740 440 Balance 2300 1060 360 Weight 90.718 kg Intake: Oral 2300 1800 800 Output: Urine 300 Stool 440 440 Other: Voiding Method Urinal Urinal Urinal Incontinent Incontinent Incontinent # Voids 5 5 - Exam Patient is sitting up in bed, no acute distress, awake alert and oriented 3. HEENT: Normocephalic. Neck is supple. Pupils reactive. Oral cavity moist. Neck supple, no JVD, CHEST EXAMINATION: Trachea is central. Lung anderson clear to auscultation and percussion. No rhonchi, crackles or wheezes. CARDIAC: Normal S1, S2 with no gallops. No murmurs ABDOMEN: Soft. Bowel sounds normal. No organomegaly. No abdominal bruits. Extremities: reveal no edema. No clubbing or cyanosis Neurologically awake, alert, oriented x3 with well-coordinated movements. No focal deficits noted Skin: No rash or skin lesions. Psychiatric: Coperative. Nonsuicidal Musculoskeletal: No joint swelling or deformity. Normal range of motion. Generalized weakness. - Labs CBC & Chem 7: 08/26/17 07:41 08/26/17 07:41 Assessment and Plan Assessment: 1. severe HIV peripheral neuropathy 2. Bilateral lower extremity weakness, mostly secondary to 1 above 3. HIV encephalopathy history 4. Anemia of chronic disease and 5. Acute right lower extremity DVT Plan: Continue on current medication regime , Eliquis, monitoring and symptomatic treatment. PT/OT. Awaiting evaluation by [facility]. Discharge planning in progress pending placement. The impression and plan of care has been dictated as directed. : I performed a history and examination of this patient, discussed the same with the dictator. I agree with the dictator's note ,documented as a scribe. Any additional findings or plans will be noted.
--- NOTE | 2017-08-30 00:15 | P.PN ---
Subjective Progress Note Date: 08/29/17 his is a 27-year-old Afro-Sammarinese male who had a recent hospitalization on at which time he presented with bilateral lower extremity weakness and broad-based gait. Been progressively getting worse for 2 months. Patient had a history of HIV diagnosed in 2008 but did not seek treatment. He had an extensive workup during his hospitalization including CAT scan, lumbar puncture , MRI of the brain and lumbar spine. He was seen by ID services as well as neurology and psychiatry. He was diagnosed with HIV with HIV encephalopathy and during his stay he was started on Stribild. His grandmother obtained guardianship but was resistant to discharge planning for AFC or [facility]. Extended care facilities would not accept the patient due to cost of HIV medication. Patient was discharged home living with his mother and has now returned to [facility] emergency center with same complaints of lower extremity pain and weakness but mother did relate to the ER physician that they have to move out of their house in 2 weeks and she is not able to take care of him and he needs long-term facility. Case management is following as well as social work will be following the patient. Patient may need a new guardian in place to better address patient's needs. Patient continues to complain of the pain in his lower legs and difficulty walking. He states his appetite is okay. He denies having any fever or chills. He denies any shortness of breath or chest pain. He is concerned for initiating urinary flow. He denies any pain with urination. On 08/21/2017 the patient is feeling better. He believes that his mentation is clear. He was up with a walker into the hallway, and is admitted to the restroom also. Does have some difficulties with urinary incontinence. Appetite is good and he is eating well. 08/24/2017 patient continues to have some improvement but is had some swelling to his lower extremities and a follow-up ultrasound of the right leg no shows evidence of a deep venous thrombosis that and I was not present on 08/06/2017. Patient does not have any other new complaints. Discharge plan remains the greatest difficulty at this time. 08/26/2017 finds the patient to be some further improvement. With physical therapy he got up with a walker and got to the hallway again. Tolerating his HIV medications without difficulty. He is eating well and denies other acute new troubles. Remains completely fixated on his urination 08/28/2017 patient seems to be doing slightly better. He is up with a walker and is able to get into the hallway. No further difficulties with his nutrition. Remains fixated on his urination. 08/29/2017 patient seems to be further improved today. He is eating well. He is up with a walker without significant difficulty. Less fixated and his urination today. Grandmother is present we continue to work with the local resources to see what the options are. Objective - Vital Signs Vital signs: Vital Signs Temp 98.0 F 08/29/17 22:00 Pulse 81 08/29/17 22:00 Resp 16 08/29/17 22:00 BP 133/72 08/29/17 22:00 Pulse Ox 100 08/29/17 22:00 Intake & Output 08/29/17 08/29/17 08/30/17 06:59 18:59 06:59 Intake Total 1800 800 Output Total 740 440 350 Balance 1060 360 -350 Weight 90.718 kg Intake: Oral 1800 800 Output: Urine 300 350 Stool 440 440 Other: Voiding Method Urinal Urinal Urinal Incontinent Incontinent Incontinent # Voids 5 2 - Exam Gen: This is a 27-year-old -Sammarinese male. He is sitting in a chair at the bedside and appears to be comfortable and in no acute distress. HEENT: Head is atraumatic, normocephalic. Pupils equal, round. Sclerae is anicteric. Conjunctiva pink. Mucous members of the mouth are moist. No thrush noted. NECK: Supple. No JVD. No lymphadenopathy. No thyromegaly. LUNGS: Clear to auscultation. Scattered and expiratory wheeze. No intercostal retractions. HEART: Regular rate and rhythm. No murmur. ABDOMEN: Soft. Bowel sounds are present. No masses. No tenderness. EXTREMITIES: There is bilateral lower extremity edema left slightly greater than the right. No calf tenderness.patient complains of generalized pain with minimal movement of his legs. NEUROLOGICAL: Patient is awake, alert and is able to answer most questions appropriately. The patient is able to stand at the bedside without difficulty. - Labs CBC & Chem 7: 08/26/17 07:41 08/26/17 07:41 Labs: Laboratory Results WBC 6.0 k/uL (3.8-10.6) 08/26/17 07:41 RBC 3.72 m/uL (4.30-5.90) L 08/26/17 07:41 Hgb 11.5 gm/dL (13.0-17.5) L 08/26/17 07:41 Hct 35.1 % (39.0-53.0) L 08/26/17 07:41 MCV 94.5 fL (80.0-100.0) 08/26/17 07:41 MCH 30.9 pg (25.0-35.0) 08/26/17 07:41 MCHC 32.7 g/dL (31.0-37.0) 08/26/17 07:41 RDW 14.8 % (11.5-15.5) 08/26/17 07:41 Plt Count 336 k/uL (150-450) 08/26/17 07:41 Neutrophils % 63 % 08/26/17 07:41 Lymphocytes % 22 % 08/26/17 07:41 Monocytes % 9 % 08/26/17 07:41 Eosinophils % 3 % 08/26/17 07:41 Basophils % 1 % 08/26/17 07:41 Neutrophils # 3.8 k/uL (1.3-7.7) 08/26/17 07:41 Lymphocytes # 1.3 k/uL (1.0-4.8) 08/26/17 07:41 Monocytes # 0.5 k/uL (0-1.0) 08/26/17 07:41 Eosinophils # 0.2 k/uL (0-0.7) 08/26/17 07:41 Basophils # 0.0 k/uL (0-0.2) 08/26/17 07:41 Sodium 142 mmol/L (137-145) 08/26/17 07:41 Potassium 4.4 mmol/L (3.5-5.1) 08/26/17 07:41 Chloride 99 mmol/L (98-107) 08/26/17 07:41 Carbon Dioxide 30 mmol/L (22-30) 08/26/17 07:41 Anion Gap 13 mmol/L 08/26/17 07:41 BUN 16 mg/dL (9-20) 08/26/17 07:41 Creatinine 1.00 mg/dL (0.66-1.25) 08/26/17 07:41 Est GFR (CKD-EPI)AfAm >90 (>60 ml/min/1.73 sqM) 08/26/17 07:41 Est GFR (CKD-EPI)NonAf >90 (>60 ml/min/1.73 sqM) 08/26/17 07:41 Glucose 96 mg/dL (74-99) 08/26/17 07:41 Calcium 9.7 mg/dL (8.4-10.2) 08/26/17 07:41 Assessment and Plan (1) HIV encephalopathy Current Visit: No Status: Acute Code(s): B20 - HUMAN IMMUNODEFICIENCY VIRUS [HIV] DISEASE; G93.40 - ENCEPHALOPATHY, UNSPECIFIED SNOMED Code(s): 898227096 Plan: Patient is sitting up eating his lunch in no distress. Is able to stand briefly to utilize the commode. Does have intermittent difficulties with urinary incontinence. Is related that the social situation has been his biggest issue. Apparently his mother does not believe she can care for him brought him back to Hospital and since she's moving away in 2 weeks and he'll be on his own. Social work is now in the midst of determining best possible plan. The patient to remain on his Sribild as before in hopes that this will allow some improvement of his HIV encephalopathy. As noted during his most recent stay there was no evidence of ORACLE MANAGER syphilis and he was negative for ROEL Polyomavirus, making PML unlikely. For now continue the antiretrovirals and supportive care and placement will be attempted. On 08/21/2017 the patient is showing some improvement already since being admitted. The social work department is working diligently on trying to devise a acceptable discharge plan. The patient's HIV medications should be covered by ADAP and this may assist his placement in rehab or AFC. 08/24/2017 patient is having some improvement since admission. An ongoing discharge planning is in process. Either rehab or AFC is being requested. For the DVT been placed on Eliquis. Further physical therapy intervention is being requested which may further help with placement. Continue Stribild as before 08/26/2017 patient is stable no complaints of new pain or discomfort of the lower extremities. No difficulties with Eliquis for the DVT, continue the Stribild as before for treatment of his HIV and AIDS. Placement remains the single with difficult aspect of his overall care. 08/28/2017 patient remained stable and tolerating Stribild for his HIV treatment. Eliquis is also being tolerated for his DVT. It is related to the social work program that he likely will be able to be transferred to an adult foster correction in the near future. We'll be happy to follow in the office for his ongoing treatment of his HIV 08/29/2017 patient is showing some further improvement. Strength appears to be improving. As she receives treatment for his HIV infection the encephalopathy and neuropathy seems to be showing some improvement already. Continue with the Stribild. Working with the social sciences professor and discharge planners try to access if the ADAP program will cover his medications while he is in extended care or in AFC.
[2017-08-30] MEDS: ACETAMINOPHEN TAB 325 MG TAB PO PRN ×3 (02:45→18:40)
[2017-08-30 07:14] LABS: Basophils # (A) 0.1 k/uL (0-0.2); Basophils % (A) 1 %; Eosinophils # (A) 0.2 k/uL (0-0.7); Eosinophils % (A) 3 %; HCT 33.7 % (39.0-53.0); HGB 11.3 gm/dL (13.0-17.5); Lymphocytes # (A) 1.4 k/uL (1.0-4.8); Lymphocytes % (A) 26 %; MCH 31.8 pg (25.0-35.0); MCHC 33.6 g/dL (31.0-37.0); MCV 94.7 fL (80.0-100.0); Monocytes # (A) 0.5 k/uL (0-1.0); Monocytes % (A) 9 %; Neutrophils # (A) 3.2 k/uL (1.3-7.7); Neutrophils % (A) 58 %; Platelet Count 291 k/uL (150-450); RBC 3.56 m/uL (4.30-5.90); RDW 14.8 % (11.5-15.5); WBC 5.5 k/uL (3.8-10.6)
[2017-08-30 07:27] LABS: Anion Gap 10 mmol/L; Blood Urea Nitrogen 17 mg/dL (9-20); Calcium 9.4 mg/dL (8.4-10.2); Carbon Dioxide 30 mmol/L (22-30); Chloride 102 mmol/L (98-107); Glucose 75 mg/dL (74-99); Potassium 4.6 mmol/L (3.5-5.1); Sodium 142 mmol/L (137-145)
[2017-08-30] MEDS: Elviteg/Cobi/Emtric/Tenofo Dis [Stribild Tablet] 1 TAB PO SCH (09:44)
[2017-08-30] MEDS: NYSTATIN 100,000 UNIT/ML SUSP 500,000 UNIT/5 ML CUP PO SCH ×4 (09:45→21:53)
[2017-08-30] MEDS: APIXABAN 5 MG TAB PO SCH ×2 (09:46→21:53)
[2017-08-30] MEDS: GABAPENTIN 300 MG CAP PO SCH ×3 (09:46→21:53)
--- NOTE | 2017-08-30 14:54 | P.PN ---
Subjective Progress Note Date: 08/30/17 his is a 27-year-old Afro-[place]ian male who had a recent hospitalization on at which time he presented with bilateral lower extremity weakness and broad-based gait. Been progressively getting worse for 2 months. Patient had a history of HIV diagnosed in 2008 but did not seek treatment. He had an extensive workup during his hospitalization including CAT scan, lumbar puncture , MRI of the brain and lumbar spine. He was seen by ID services as well as neurology and psychiatry. He was diagnosed with HIV with HIV encephalopathy and during his stay he was started on Stribild. His grandmother obtained guardianship but was resistant to discharge planning for AFC or fdc. Extended care facilities would not accept the patient due to cost of HIV medication. Patient was discharged home living with his mother and has now returned to [facility] emergency center with same complaints of lower extremity pain and weakness but mother did relate to the ER physician that they have to move out of their house in 2 weeks and she is not able to take care of him and he needs long-term facility. Case management is following as well as social work will be following the patient. Patient may need a new guardian in place to better address patient's needs. Patient continues to complain of the pain in his lower legs and difficulty walking. He states his appetite is okay. He denies having any fever or chills. He denies any shortness of breath or chest pain. He is concerned for initiating urinary flow. He denies any pain with urination. On 08/21/2017 the patient is feeling better. He believes that his mentation is clear. He was up with a walker into the hallway, and is admitted to the restroom also. Does have some difficulties with urinary incontinence. Appetite is good and he is eating well. 08/24/2017 patient continues to have some improvement but is had some swelling to his lower extremities and a follow-up ultrasound of the right leg no shows evidence of a deep venous thrombosis that and I was not present on 08/06/2017. Patient does not have any other new complaints. Discharge plan remains the greatest difficulty at this time. 08/26/2017 finds the patient to be some further improvement. With physical therapy he got up with a walker and got to the hallway again. Tolerating his HIV medications without difficulty. He is eating well and denies other acute new troubles. Remains completely fixated on his urination 08/28/2017 patient seems to be doing slightly better. He is up with a walker and is able to get into the hallway. No further difficulties with his nutrition. Remains fixated on his urination. 08/29/2017 patient seems to be further improved today. He is eating well. He is up with a walker without significant difficulty. Less fixated and his urination today. Grandmother is present we continue to work with the local resources to see what the options are. 08/30/2017 patient has some further improvement. Continues to have a very significant appetite eating everything that is brought to him. He is up walking in the hallway with the walker. Is voicing no new complaints. Less fixated on his urinary system Objective - Vital Signs Vital signs: Vital Signs Temp 97.3 F L 08/30/17 05:30 Pulse 58 L 08/30/17 05:30 Resp 16 08/30/17 05:30 BP 124/74 08/30/17 05:30 Pulse Ox 100 08/30/17 05:30 Intake & Output 08/29/17 08/30/17 08/30/17 18:59 06:59 18:59 Intake Total 800 Output Total 440 350 Balance 360 -350 Weight 90.718 kg 90.718 kg Intake: Oral 800 Output: Urine 350 Stool 440 Other: Voiding Method Urinal Urinal Urinal Incontinent Incontinent Incontinent # Voids 2 1 - Exam Gen: This is a 27-year-old -[place] male. He is sitting in a chair at the bedside and appears to be comfortable and in no acute distress. HEENT: Head is atraumatic, normocephalic. Pupils equal, round. Sclerae is anicteric. Conjunctiva pink. Mucous members of the mouth are moist. No thrush noted. NECK: Supple. No JVD. No lymphadenopathy. No thyromegaly. LUNGS: Clear to auscultation. Scattered and expiratory wheeze. No intercostal retractions. HEART: Regular rate and rhythm. No murmur. ABDOMEN: Soft. Bowel sounds are present. No masses. No tenderness. EXTREMITIES: There is bilateral lower extremity edema left slightly greater than the right. No calf tenderness.patient complains of generalized pain with minimal movement of his legs. NEUROLOGICAL: Patient is awake, alert and is able to answer most questions appropriately. The patient is able to stand at the bedside without difficulty. - Labs CBC & Chem 7: 08/30/17 06:36 08/30/17 06:36 Labs: Abnormal Lab Results - Last 24 Hours (Table) 08/30/17 Range/Units 06:36 RBC 3.56 L (4.30-5.90) m/uL Hgb 11.3 L (13.0-17.5) gm/dL Hct 33.7 L (39.0-53.0) % Laboratory Results WBC 5.5 k/uL (3.8-10.6) 08/30/17 06:36 RBC 3.56 m/uL (4.30-5.90) L 08/30/17 06:36 Hgb 11.3 gm/dL (13.0-17.5) L 08/30/17 06:36 Hct 33.7 % (39.0-53.0) L 08/30/17 06:36 MCV 94.7 fL (80.0-100.0) 08/30/17 06:36 MCH 31.8 pg (25.0-35.0) 08/30/17 06:36 MCHC 33.6 g/dL (31.0-37.0) 08/30/17 06:36 RDW 14.8 % (11.5-15.5) 08/30/17 06:36 Plt Count 291 k/uL (150-450) 08/30/17 06:36 Neutrophils % 58 % 08/30/17 06:36 Lymphocytes % 26 % 08/30/17 06:36 Monocytes % 9 % 08/30/17 06:36 Eosinophils % 3 % 08/30/17 06:36 Basophils % 1 % 08/30/17 06:36 Neutrophils # 3.2 k/uL (1.3-7.7) 08/30/17 06:36 Lymphocytes # 1.4 k/uL (1.0-4.8) 08/30/17 06:36 Monocytes # 0.5 k/uL (0-1.0) 08/30/17 06:36 Eosinophils # 0.2 k/uL (0-0.7) 08/30/17 06:36 Basophils # 0.1 k/uL (0-0.2) 08/30/17 06:36 Sodium 142 mmol/L (137-145) 08/30/17 06:36 Potassium 4.6 mmol/L (3.5-5.1) 08/30/17 06:36 Chloride 102 mmol/L (98-107) 08/30/17 06:36 Carbon Dioxide 30 mmol/L (22-30) 08/30/17 06:36 Anion Gap 10 mmol/L 08/30/17 06:36 BUN 17 mg/dL (9-20) 08/30/17 06:36 Creatinine 0.83 mg/dL (0.66-1.25) 08/30/17 06:36 Est GFR (CKD-EPI)AfAm >90 (>60 ml/min/1.73 sqM) 08/30/17 06:36 Est GFR (CKD-EPI)NonAf >90 (>60 ml/min/1.73 sqM) 08/30/17 06:36 Glucose 75 mg/dL (74-99) 08/30/17 06:36 Calcium 9.4 mg/dL (8.4-10.2) 08/30/17 06:36 Assessment and Plan (1) HIV encephalopathy Current Visit: No Status: Acute Code(s): B20 - HUMAN IMMUNODEFICIENCY VIRUS [HIV] DISEASE; G93.40 - ENCEPHALOPATHY, UNSPECIFIED SNOMED Code(s): 020756648 Plan: Patient is sitting up eating his lunch in no distress. Is able to stand briefly to utilize the commode. Does have intermittent difficulties with urinary incontinence. Is related that the social situation has been his biggest issue. Apparently his mother does not believe she can care for him brought him back to Hospital and since she's moving away in 2 weeks and he'll be on his own. Social work is now in the midst of determining best possible plan. The patient to remain on his Sribild as before in hopes that this will allow some improvement of his HIV encephalopathy. As noted during his most recent stay there was no evidence of OTR OWNER OPERATOR syphilis and he was negative for ROEL Polyomavirus, making PML unlikely. For now continue the antiretrovirals and supportive care and placement will be attempted. On 08/21/2017 the patient is showing some improvement already since being admitted. The social work department is working diligently on trying to devise a acceptable discharge plan. The patient's HIV medications should be covered by ADAP and this may assist his placement in rehab or AFC. 08/24/2017 patient is having some improvement since admission. An ongoing discharge planning is in process. Either rehab or AFC is being requested. For the DVT been placed on Eliquis. Further physical therapy intervention is being requested which may further help with placement. Continue Stribild as before 08/26/2017 patient is stable no complaints of new pain or discomfort of the lower extremities. No difficulties with Eliquis for the DVT, continue the Stribild as before for treatment of his HIV and AIDS. Placement remains the single with difficult aspect of his overall care. 08/28/2017 patient remained stable and tolerating Stribild for his HIV treatment. Eliquis is also being tolerated for his DVT. It is related to the social work program that he likely will be able to be transferred to an adult foster usp in the near future. We'll be happy to follow in the office for his ongoing treatment of his HIV 08/29/2017 patient is showing some further improvement. Strength appears to be improving. As she receives treatment for his HIV infection the encephalopathy and neuropathy seems to be showing some improvement already. Continue with the Stribild. Working with the manager social media and discharge planners try to access if the ADAP program will cover his medications while he is in extended care or in AFC. 08/30/2017 place remains the biggest issue. No working with fdc to see if he cannot be placed in a fdc. Grandmother is working with social work. Also working with the ADAP to ensure he'll receive his medications at discharge. Follow up office in a month for follow-up blood work and evaluation.
--- NOTE | 2017-08-30 15:51 | P.PN ---
Subjective Progress Note Date: 08/30/17 Progress note being dictated for Dr. 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 patient was discharge to home in the care of his mother while his grandmother was signed as his guardian. He brought in to the emergency room last night because his mother she could not take care of him anymore related to his lower extremity weakness, however patient denies to me any other further complaints. No chest pain, dyspnea, fever, change in urine or bowel habits 08/21/2017 Patient at bedside says his weakness in the lower extremity are improving today. His guardian and guarded mother is at bedside, discussed the case with her and she states that for 3 days after his discharge last time he wasn't getting his HIV medication for no specific reason, and he lost his improvement last time he was in the hospital while he is off his medication. Weakness is improved after restarted medication as per patient On 08/23/2017 Patient failed last night and hit his head, no arthritis, no wounds, patient had some headache with now resolved. Continue with neuro check Neurology saw the patient's and recommended Neurontin and physical therapy and Doppler of lower ext, pt states to me he has pain in his both legs only when uses them and that is been going on for about 2 weeks since he is been discharged last time , his pain is the same and not progressive, while lying in bed he has no pain Patient still pending a placement 08/24/2017 Patient is still complaining of leg pain and PT OT is following. Patient is being continued on anticoagulation. Patient is pending placement at this time. No complaints of chest pain or shortness of breath. No nausea vomiting or abdominal pain. No other acute overnight issues. 08/25/2017 Patient says that his pain is better today. Able to sit in the chair. Otherwise participating in physical therapy and able to walk with a walker. Possible transfer to rehab on Saturday. All other review of systems negative except the above Current medications reviewed 08/26/2017 no overnight events. Generalized weakness persists. Good diet intake. Complains of frontal headache.CT of head performed reporting no acute intracranial process; ventricles, basal cisterns and sulci-moderate enlargement unchanged from prior exam. Denies chest pain, palpitations or increasing shortness of breath. Denies abdominal pain, nausea vomiting. Discharge planning in progress for subacute rehab, placement pending as per social work. 08/27/2017 maintained on Eliquis for DVT. Continues on Stribild for HIV/AIDS as per ID. Good diet intake. no overnight events. 08/28/2017 no overnight events. Good diet intake, no nausea, vomiting or diarrhea. Denies chest pain, palpitations or increased shortness of breath.Generalized weakness persists. 08/29/2017 no overnight events. Ambulating with walker. Devin C scheduled to evaluate patient for potential placement. Denies chest pain, palpitations or shortness of breath. 08/30/2017 good diet intake, no nausea vomiting or diarrhea. Ambulating with walker. Afebrile, normal WBC.VSS. Denies chest pain, palpitations or shortness of breath. AFC interview scheduled for today. Objective - Vital Signs Vital signs: Vital Signs Temp 97.3 F L 08/30/17 05:30 Pulse 58 L 08/30/17 05:30 Resp 16 08/30/17 05:30 BP 124/74 08/30/17 05:30 Pulse Ox 100 08/30/17 05:30 Intake & Output 08/29/17 08/30/17 08/30/17 18:59 06:59 18:59 Intake Total 800 Output Total 440 350 Balance 360 -350 Weight 90.718 kg Intake: Oral 800 Output: Urine 350 Stool 440 Other: Voiding Method Urinal Urinal Urinal Incontinent Incontinent Incontinent # Voids 2 1 - Exam Patient is sitting up in bed, no acute distress HEENT: Normocephalic. Neck is supple. Pupils reactive. Oral cavity moist. Neck supple, no JVD, CHEST EXAMINATION: Trachea is central. Lung anderson clear to auscultation and percussion. No rhonchi, crackles or wheezes. CARDIAC: Normal S1, S2 with no gallops. No murmurs ABDOMEN: Soft. Bowel sounds normal. No organomegaly. No abdominal bruits. Extremities: reveal no edema. No clubbing or cyanosis Neurologically awake, alert, oriented x3 with well-coordinated movements. No focal deficits noted Skin: No rash or skin lesions. Psychiatric: Coperative. Nonsuicidal Musculoskeletal: No joint swelling or deformity. Normal range of motion. Generalized weakness. - Labs CBC & Chem 7: 08/30/17 06:36 08/30/17 06:36 Labs: Abnormal Lab Results - Last 24 Hours (Table) 08/30/17 Range/Units 06:36 RBC 3.56 L (4.30-5.90) m/uL Hgb 11.3 L (13.0-17.5) gm/dL Hct 33.7 L (39.0-53.0) % Assessment and Plan Assessment: 1. severe HIV peripheral neuropathy 2. Bilateral lower extremity weakness, mostly secondary to 1 above 3. HIV encephalopathy history 4. Anemia of chronic disease and 5. Acute right lower extremity DVT , on Eliquis. Plan: Continue on current medication regime , monitoring and symptomatic treatment. PT/OT. AFC evaluation pending. Discharge planning in progress pending placement. The impression and plan of care has been dictated as directed. : I performed a history and examination of this patient, discussed the same with the dictator. I agree with the dictator's note ,documented as a scribe. Any additional findings or plans will be noted.
[2017-08-31] MEDS: ACETAMINOPHEN TAB 325 MG TAB PO PRN ×3 (05:30→20:10)
[2017-08-31 07:44] LABS: Basophils % (A) 1 %; Eosinophils # (A) 0.1 k/uL (0-0.7); Eosinophils % (A) 2 %; HCT 31.6 % (39.0-53.0); HGB 10.7 gm/dL (13.0-17.5); Lymphocytes # (A) 1.6 k/uL (1.0-4.8); Lymphocytes % (A) 27 %; MCHC 33.9 g/dL (31.0-37.0); MCV 94.6 fL (80.0-100.0); Mean Platelet Volume 6.8; Monocytes # (A) 0.5 k/uL (0-1.0); Monocytes % (A) 8 %; Neutrophils # (A) 3.4 k/uL (1.3-7.7); Neutrophils % (A) 58 %; Platelet Count 286 k/uL (150-450); RBC 3.34 m/uL (4.30-5.90); RDW 14.8 % (11.5-15.5); WBC 5.9 k/uL (3.8-10.6)
[2017-08-31 07:58] LABS: Anion Gap 10 mmol/L; Blood Urea Nitrogen 16 mg/dL (9-20); Calcium 9.2 mg/dL (8.4-10.2); Carbon Dioxide 31 mmol/L (22-30); Chloride 99 mmol/L (98-107); Glucose 78 mg/dL (74-99); Potassium 4.5 mmol/L (3.5-5.1); Sodium 140 mmol/L (137-145)
[2017-08-31] MEDS: Elviteg/Cobi/Emtric/Tenofo Dis [Stribild Tablet] 1 TAB PO SCH (09:25)
[2017-08-31] MEDS: GABAPENTIN 300 MG CAP PO SCH ×3 (09:25→23:04)
[2017-08-31] MEDS: NYSTATIN 100,000 UNIT/ML SUSP 500,000 UNIT/5 ML CUP PO SCH ×4 (09:25→23:03)
[2017-08-31] MEDS: APIXABAN 5 MG TAB PO SCH ×2 (09:25→20:10)
--- NOTE | 2017-08-31 21:52 | PN ---
PROGRESS NOTE DATE OF SERVICE: 08/31/2017 This 27-year-old gentleman was admitted with HIV peripheral neuropathy and gait dysfunction is being closely monitored. The machine adjuster leader case trim and social workers are working towards possible discharge planning. No chest pain. No palpitation. EXAM: GENERAL: Alert and oriented times three. VITAL SIGNS: Pulse 84, blood pressure 130/66, respiration 18, temperature 97.8 , pulse ox 100% on room air. HEENT: Conjunctivae normal. Oral mucosa moist. NECK: No jugular venous distention. CARDIOVASCULAR: S1, S2. RESPIRATION: Breath sounds diminished in the bases. A few scattered rhonchi and crackles. ABDOMEN: Soft, nontender. LEGS: Peripheral neuropathy. NEUROLOGICAL: No focal deficits. LABS: WBC 5, hemoglobin 10.7. ASSESSMENT: 1.hiv Peripheral neuropathy. 2. Bilateral lower extremity weakness most likely secondary to above. 3. HIV encephalopathy history. 4. Anemia of chronic disease. 5. Acute right lower lobe DVT on Eliquis. RECOMMENDATIONS AND DISCUSSION: Recommend to continue current medications, management and symptomatic treatment. Otherwise, continue the rest of heart medications, PT/OT evaluation. Ambulation. Otherwise recommend closely monitor with case management team. Further recommendations to follow. MMODL / IJN: [id number] / [facility]ALTy[facility]
[2017-09-01 07:21] LABS: Anion Gap 11 mmol/L; Blood Urea Nitrogen 16 mg/dL (9-20); Calcium 9.2 mg/dL (8.4-10.2); Carbon Dioxide 29 mmol/L (22-30); Chloride 103 mmol/L (98-107); Glucose 86 mg/dL (74-99); Potassium 4.4 mmol/L (3.5-5.1); Sodium 143 mmol/L (137-145)
[2017-09-01 07:35] LABS: HGB 11.2 gm/dL (13.0-17.5); MCH 31.7 pg (25.0-35.0); MCHC 32.8 g/dL (31.0-37.0); MCV 96.5 fL (80.0-100.0); Mean Platelet Volume 6.6; Platelet Count 290 k/uL (150-450); RBC 3.52 m/uL (4.30-5.90); RDW 15.1 % (11.5-15.5)
[2017-09-01] MEDS: GABAPENTIN 300 MG CAP PO SCH ×3 (08:00→21:50)
[2017-09-01] MEDS: APIXABAN 5 MG TAB PO SCH ×2 (08:00→21:50)
[2017-09-01] MEDS: Elviteg/Cobi/Emtric/Tenofo Dis [Stribild Tablet] 1 TAB PO SCH (08:01)
[2017-09-01] MEDS: NYSTATIN 100,000 UNIT/ML SUSP 500,000 UNIT/5 ML CUP PO SCH ×4 (08:01→21:49)
[2017-09-01 08:41] LABS: Eosinophils # (M) 0.28 k/uL (0-0.7); Lymphocytes # (M) 2.24 k/uL (1.0-4.8); Monocytes # (M) 0.35 k/uL (0-1.0); Myelocytes # (M) 0.07 k/uL (0); Myelocytes % 1 %; Neutrophils # (M) 4.06 k/uL (1.3-7.7); Neutrophils % (M) 58 %; Nucleated Red Blood Cells 0 /100 WBC (0-0); Polychromasia Present; Total Cells Counted 100
[2017-09-01] MEDS: ACETAMINOPHEN TAB 325 MG TAB PO PRN ×2 (16:07→21:51)
--- NOTE | 2017-09-01 18:20 | PN ---
PROGRESS NOTE DATE OF SERVICE: 09/01/2017 This 27-year-old gentleman with a HIV and multiple complex issues including peripheral neuropathy and , is being closely monitored. The case management team is working on possible placement. No chest pain. No palpitations. No fever. PT, OT is also evaluating the patient. EXAM: Alert and oriented times three. Pulse 84, blood pressure 120/70, respiration rate 18, temperature 98 degrees, pulse ox 99% on room air. HEENT: Conjunctivae normal. NECK: No JVD. CARDIOVASCULAR: S1, S2. RESPIRATORY: Diminished breath sounds at the bases. No rhonchi, no crackles. ABDOMEN: Soft. NERVOUS SYSTEM: Diffusely weak. LABS: WBC 7, hemoglobin 11.2. ASSESSMENT: 1. HIV. 2. Peripheral neuropathy. 3. Bilateral lower extremity weakness, most likely secondary to above. 4. History of encephalopathy. 5. Anemia of chronic disease. 6. Acute right leg DVT on Eliquis. RECOMMENDATIONS: Recommend to continue current management and continue with symptomatic treatment. Continue current medication. Continue to closely monitor. Otherwise PT, OT evaluation, possible ECF rehab. Further recommendations to follow. MMODL / IJN: [id number] / [facility]
[2017-09-02] MEDS: ACETAMINOPHEN TAB 325 MG TAB PO PRN ×2 (06:39→15:13)
[2017-09-02] MEDS: APIXABAN 5 MG TAB PO SCH ×2 (08:01→20:43)
[2017-09-02] MEDS: NYSTATIN 100,000 UNIT/ML SUSP 500,000 UNIT/5 ML CUP PO SCH ×4 (08:01→20:43)
[2017-09-02] MEDS: GABAPENTIN 300 MG CAP PO SCH ×3 (08:01→20:43)
[2017-09-02] MEDS: Elviteg/Cobi/Emtric/Tenofo Dis [Stribild Tablet] 1 TAB PO SCH (08:01)
--- NOTE | 2017-09-02 22:27 | PN ---
PROGRESS NOTE DATE OF SERVICE: 09/02/2017 This 27-year-old gentleman was admitted with HIV neuropathy and encephalopathy is being closely monitored. The patient had gait dysfunction. PT/OT is evaluating the patient closely also. Case management discharge planning team is working on discharge planning. No chest pain. No palpitations. No fever. On exam, alert and oriented x2. Pulse 80, blood pressure 118/81, respirations 16, temperature 97.7, pulse ox 100% on room air. HEENT: Conjunctivae normal. NECK: No JVD. CARDIOVASCULAR: S1, S2. RESPIRATORY: Diminished breath sounds at the bases. No rhonchi, no crackles. ABDOMEN: Soft. NERVOUS SYSTEM: Diffuse neuropathy. LAB: Noted. ASSESSMENT: 1. HIV peripheral neuropathy. 2. Bilateral lower extremity weakness secondary to above. 3. History encephalopathy related to HIV. 4. Anemia of chronic disease. 5. History of acute right leg DVT on Eliquis. RECOMMENDATIONS: Recommend to continue current management and symptomatic treatment. Continue with anticoagulation. Otherwise, I would recommend to continue with PT/OT evaluation and possible rehab versus discharge planning and we will closely follow with case management, as well as the discharge planning team. Further recommendations to follow. MMODL / IJN: [id number] /
[2017-09-03] MEDS: ACETAMINOPHEN TAB 325 MG TAB PO PRN ×4 (00:06→22:47)
[2017-09-03] MEDS: Elviteg/Cobi/Emtric/Tenofo Dis [Stribild Tablet] 1 TAB PO SCH (07:56)
[2017-09-03] MEDS: NYSTATIN 100,000 UNIT/ML SUSP 500,000 UNIT/5 ML CUP PO SCH ×4 (07:57→22:22)
[2017-09-03] MEDS: GABAPENTIN 300 MG CAP PO SCH ×3 (07:57→22:22)
[2017-09-03] MEDS: APIXABAN 5 MG TAB PO SCH ×2 (07:57→22:22)
--- NOTE | 2017-09-03 19:16 | PN ---
PROGRESS NOTE DATE OF SERVICE: 09/03/2017. INTERVAL HISTORY: This 27-year-old gentleman admitted with HIV neuropathy and as well as HIV encephalopathy is being closely monitored. No chest pain. No palpitations. No fever. The PT/OT evaluated the patient. manager treasury and discharge planning working towards discharge planning at this time. No fever and no cough. EXAM: Pulse 69, blood pressure 118/70, respiration 20, temperature 97.4, pulse ox 100% on room air. HEENT: Conjunctivae normal. NECK: No jugular venous distention. CARDIOVASCULAR: S1, S2. RESPIRATION: Breath sounds diminished at the bases. No rhonchi. No crackles. ABDOMEN: Soft, nontender. LEGS: Peripheral neuropathy. NERVOUS SYSTEM: Diffusely weak. LABS: WBC 7, hemoglobin 11.2. ASSESSMENT: 1. HIV peripheral neuropathy. 2. Bilateral lower extremity weakness secondary to above. 3. History of encephalopathy related to HIV. 4. Anemia of chronic disease. 5. History of acute right leg deep vein thrombosis on Eliquis. RECOMMENDATIONS AND DISCUSSION: I recommend to continue current medications, management and symptomatic treatment. Continue the rest of medications. Continue with Eliquis. Prognosis guarded because of multiple complex medical issues. Further recommendations to follow. Otherwise PT, OT evaluation. Increase ambulation. MMODL / IJN: [id number] /
[2017-09-04] MEDS: Elviteg/Cobi/Emtric/Tenofo Dis [Stribild Tablet] 1 TAB PO SCH (10:03)
[2017-09-04] MEDS: APIXABAN 5 MG TAB PO SCH ×2 (10:04→21:36)
[2017-09-04] MEDS: GABAPENTIN 300 MG CAP PO SCH ×3 (10:04→21:36)
[2017-09-04] MEDS: NYSTATIN 100,000 UNIT/ML SUSP 500,000 UNIT/5 ML CUP PO SCH ×3 (10:04→18:30)
[2017-09-04] MEDS: ACETAMINOPHEN TAB 325 MG TAB PO PRN (10:05)
--- NOTE | 2017-09-04 19:40 | P.PN ---
Subjective Progress Note Date: 09/04/17 Progress note being dictated for Dr. 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 patient was discharge to home in the care of his mother while his grandmother was signed as his guardian. He brought in to the emergency room last night because his mother she could not take care of him anymore related to his lower extremity weakness, however patient denies to me any other further complaints. No chest pain, dyspnea, fever, change in urine or bowel habits 08/21/2017 Patient at bedside says his weakness in the lower extremity are improving today. His guardian and guarded mother is at bedside, discussed the case with her and she states that for 3 days after his discharge last time he wasn't getting his HIV medication for no specific reason, and he lost his improvement last time he was in the hospital while he is off his medication. Weakness is improved after restarted medication as per patient On 08/23/2017 Patient failed last night and hit his head, no arthritis, no wounds, patient had some headache with now resolved. Continue with neuro check Neurology saw the patient's and recommended Neurontin and physical therapy and Doppler of lower ext, pt states to me he has pain in his both legs only when uses them and that is been going on for about 2 weeks since he is been discharged last time , his pain is the same and not progressive, while lying in bed he has no pain Patient still pending a placement 08/24/2017 Patient is still complaining of leg pain and PT OT is following. Patient is being continued on anticoagulation. Patient is pending placement at this time. No complaints of chest pain or shortness of breath. No nausea vomiting or abdominal pain. No other acute overnight issues. 08/25/2017 Patient says that his pain is better today. Able to sit in the chair. Otherwise participating in physical therapy and able to walk with a walker. Possible transfer to rehab on Saturday. All other review of systems negative except the above Current medications reviewed 08/26/2017 no overnight events. Generalized weakness persists. Good diet intake. Complains of frontal headache.CT of head performed reporting no acute intracranial process; ventricles, basal cisterns and sulci-moderate enlargement unchanged from prior exam. Denies chest pain, palpitations or increasing shortness of breath. Denies abdominal pain, nausea vomiting. Discharge planning in progress for subacute rehab, placement pending as per social work. 08/27/2017 maintained on Eliquis for DVT. Continues on Stribild for HIV/AIDS as per ID. Good diet intake. no overnight events. 08/28/2017 no overnight events. Good diet intake, no nausea, vomiting or diarrhea. Denies chest pain, palpitations or increased shortness of breath.Generalized weakness persists. 08/29/2017 no overnight events. Ambulating with walker. [facility] scheduled to evaluate patient for potential placement. Denies chest pain, palpitations or shortness of breath. 08/30/2017 good diet intake, no nausea vomiting or diarrhea. Ambulating with walker. Afebrile, normal WBC.VSS. Denies chest pain, palpitations or shortness of breath. AFC interview scheduled for today. 09/04/2017 ambulating in hallway with walker, tolerated exertion well. Good diet intake, no nausea vomiting or diarrhea. Denies chest pain, palpitations or shortness of breath. Afebrile. Discharge planning in progress, social work and grandmother currently working with [facility]. Objective - Vital Signs Vital signs: Vital Signs Temp 98.0 F 09/04/17 14:08 Pulse 92 09/04/17 16:00 Resp 18 09/04/17 14:08 BP 130/62 09/04/17 14:08 Pulse Ox 99 09/04/17 14:08 Intake & Output 09/04/17 09/04/17 09/05/17 06:59 18:59 06:59 Output Total 350 0 Balance -350 0 Output: Urine 350 Stool 0 Other: Voiding Method Toilet Toilet Urinal Urinal Diaper Diaper Incontinent Incontinent # Voids 1 4 - Exam Patient is sitting up in bed, no acute distress HEENT: Normocephalic. Neck is supple. Pupils reactive. Oral cavity moist. Neck supple, no JVD, CHEST EXAMINATION: Trachea is central. Lung anderson clear to auscultation and percussion. No rhonchi, crackles or wheezes. CARDIAC: Normal S1, S2 with no gallops. No murmurs ABDOMEN: Soft. Bowel sounds normal. No organomegaly. No abdominal bruits. Extremities: reveal no edema. No clubbing or cyanosis Neurologically awake, alert, oriented x3 with well-coordinated movements. No focal deficits noted Musculoskeletal: No joint swelling or deformity. Normal range of motion. Generalized weakness. - Labs CBC & Chem 7: 09/01/17 06:45 09/01/17 06:45 Assessment and Plan Assessment: 1. severe HIV peripheral neuropathy 2. Bilateral lower extremity weakness, mostly secondary to the above 3. HIV encephalopathy history 4. Anemia of chronic disease and 5. Acute right lower extremity DVT , on Eliquis. Plan: Continue on current medication regime , monitoring and symptomatic treatment. PT/OT. Increase ambulation. Up in chair for all meals. Discharge planning in progress pending placement. The impression and plan of care has been dictated as directed. : I performed a history and examination of this patient, discussed the same with the dictator. I agree with the dictator's note ,documented as a scribe. Any additional findings or plans will be noted.
--- NOTE | 2017-09-04 22:31 | P.PN ---
Subjective Progress Note Date: 09/04/17 his is a 27-year-old Afro-S[place]an male who had a recent hospitalization on at which time he presented with bilateral lower extremity weakness and broad-based gait. Been progressively getting worse for 2 months. Patient had a history of HIV diagnosed in 2008 but did not seek treatment. He had an extensive workup during his hospitalization including CAT scan, lumbar puncture , MRI of the brain and lumbar spine. He was seen by ID services as well as neurology and psychiatry. He was diagnosed with HIV with HIV encephalopathy and during his stay he was started on Stribild. His grandmother obtained guardianship but was resistant to discharge planning for AFC or longterm. Extended care facilities would not accept the patient due to cost of HIV medication. Patient was discharged home living with his mother and has now returned to [facility] emergency center with same complaints of lower extremity pain and weakness but mother did relate to the ER physician that they have to move out of their house in 2 weeks and she is not able to take care of him and he needs long-term facility. Case management is following as well as social work will be following the patient. Patient may need a new guardian in place to better address patient's needs. Patient continues to complain of the pain in his lower legs and difficulty walking. He states his appetite is okay. He denies having any fever or chills. He denies any shortness of breath or chest pain. He is concerned for initiating urinary flow. He denies any pain with urination. On 08/21/2017 the patient is feeling better. He believes that his mentation is clear. He was up with a walker into the hallway, and is admitted to the restroom also. Does have some difficulties with urinary incontinence. Appetite is good and he is eating well. 08/24/2017 patient continues to have some improvement but is had some swelling to his lower extremities and a follow-up ultrasound of the right leg no shows evidence of a deep venous thrombosis that and I was not present on 08/06/2017. Patient does not have any other new complaints. Discharge plan remains the greatest difficulty at this time. 08/26/2017 finds the patient to be some further improvement. With physical therapy he got up with a walker and got to the hallway again. Tolerating his HIV medications without difficulty. He is eating well and denies other acute new troubles. Remains completely fixated on his urination 08/28/2017 patient seems to be doing slightly better. He is up with a walker and is able to get into the hallway. No further difficulties with his nutrition. Remains fixated on his urination. 08/29/2017 patient seems to be further improved today. He is eating well. He is up with a walker without significant difficulty. Less fixated and his urination today. Grandmother is present we continue to work with the local resources to see what the options are. 08/30/2017 patient has some further improvement. Continues to have a very significant appetite eating everything that is brought to him. He is up walking in the hallway with the walker. Is voicing no new complaints. Less fixated on his urinary system 09/04/2017 the patient is stable and is able to eat well. The patient is up and walking in the hallway with a walker. He continues to have inappropriate behavior. He is however comfortable Objective - Vital Signs Vital signs: Vital Signs Temp 98.0 F 09/04/17 22:11 Pulse 80 09/04/17 22:11 Resp 16 09/04/17 22:11 BP 125/70 09/04/17 22:11 Pulse Ox 100 09/04/17 22:11 Intake & Output 09/04/17 09/04/17 09/05/17 06:59 18:59 06:59 Intake Total 900 Output Total 350 0 650 Balance -350 0 250 Intake: Oral 900 Output: Urine 350 650 Stool 0 Other: Voiding Method Toilet Toilet Urinal Urinal Diaper Diaper Incontinent Incontinent # Voids 1 4 - Exam Gen: This is a 27-year-old -S[place] male. He is sitting in a chair at the bedside and appears to be comfortable and in no acute distress. HEENT: Head is atraumatic, normocephalic. Pupils equal, round. Sclerae is anicteric. Conjunctiva pink. Mucous members of the mouth are moist. No thrush noted. NECK: Supple. No JVD. No lymphadenopathy. No thyromegaly. LUNGS: Clear to auscultation. Scattered and expiratory wheeze. No intercostal retractions. HEART: Regular rate and rhythm. No murmur. ABDOMEN: Soft. Bowel sounds are present. No masses. No tenderness. EXTREMITIES: There is bilateral lower extremity edema left slightly greater than the right. No calf tenderness.patient complains of generalized pain with minimal movement of his legs. NEUROLOGICAL: Patient is awake, alert and is able to answer most questions appropriately. The patient is able to stand at the bedside without difficulty. - Labs CBC & Chem 7: 09/01/17 06:45 09/01/17 06:45 Labs: Laboratory Results WBC 7.0 k/uL (3.8-10.6) 09/01/17 06:45 RBC 3.52 m/uL (4.30-5.90) L 09/01/17 06:45 Hgb 11.2 gm/dL (13.0-17.5) L 09/01/17 06:45 Hct 34.0 % (39.0-53.0) L 09/01/17 06:45 MCV 96.5 fL (80.0-100.0) 09/01/17 06:45 MCH 31.7 pg (25.0-35.0) 09/01/17 06:45 MCHC 32.8 g/dL (31.0-37.0) 09/01/17 06:45 RDW 15.1 % (11.5-15.5) 09/01/17 06:45 Plt Count 290 k/uL (150-450) 09/01/17 06:45 Neutrophils % 58 % 08/31/17 07:05 Neutrophils % (Manual) 58 % 09/01/17 06:45 Lymphocytes % 27 % 08/31/17 07:05 Lymphocytes % (Manual) 32 % 09/01/17 06:45 Monocytes % 8 % 08/31/17 07:05 Monocytes % (Manual) 5 % 09/01/17 06:45 Eosinophils % 2 % 08/31/17 07:05 Eosinophils % (Manual) 4 % 09/01/17 06:45 Basophils % 1 % 08/31/17 07:05 Myelocytes % 1 % 09/01/17 06:45 Neutrophils # 3.4 k/uL (1.3-7.7) 08/31/17 07:05 Neutrophils # (Manual) 4.06 k/uL (1.3-7.7) 09/01/17 06:45 Lymphocytes # 1.6 k/uL (1.0-4.8) 08/31/17 07:05 Lymphocytes # (Manual) 2.24 k/uL (1.0-4.8) 09/01/17 06:45 Monocytes # 0.5 k/uL (0-1.0) 08/31/17 07:05 Monocytes # (Manual) 0.35 k/uL (0-1.0) 09/01/17 06:45 Eosinophils # 0.1 k/uL (0-0.7) 08/31/17 07:05 Eosinophils # (Manual) 0.28 k/uL (0-0.7) 09/01/17 06:45 Basophils # 0.0 k/uL (0-0.2) 08/31/17 07:05 Myelocytes # (Manual) 0.07 k/uL (0) H 09/01/17 06:45 Nucleated RBCs 0 /100 WBC (0-0) 09/01/17 06:45 Polychromasia Present 09/01/17 06:45 Sodium 143 mmol/L (137-145) 09/01/17 06:45 Potassium 4.4 mmol/L (3.5-5.1) 09/01/17 06:45 Chloride 103 mmol/L (98-107) 09/01/17 06:45 Carbon Dioxide 29 mmol/L (22-30) 09/01/17 06:45 Anion Gap 11 mmol/L 09/01/17 06:45 BUN 16 mg/dL (9-20) 09/01/17 06:45 Creatinine 0.85 mg/dL (0.66-1.25) 09/01/17 06:45 Est GFR (CKD-EPI)AfAm >90 (>60 ml/min/1.73 sqM) 09/01/17 06:45 Est GFR (CKD-EPI)NonAf >90 (>60 ml/min/1.73 sqM) 09/01/17 06:45 Glucose 86 mg/dL (74-99) 09/01/17 06:45 Calcium 9.2 mg/dL (8.4-10.2) 09/01/17 06:45 Assessment and Plan (1) HIV encephalopathy Current Visit: No Status: Acute Code(s): B20 - HUMAN IMMUNODEFICIENCY VIRUS [HIV] DISEASE; G93.40 - ENCEPHALOPATHY, UNSPECIFIED SNOMED Code(s): 300769079 Plan: Patient is sitting up eating his lunch in no distress. Is able to stand briefly to utilize the commode. Does have intermittent difficulties with urinary incontinence. Is related that the social situation has been his biggest issue. Apparently his mother does not believe she can care for him brought him back to Hospital and since she's moving away in 2 weeks and he'll be on his own. Social work is now in the midst of determining best possible plan. The patient to remain on his Sribild as before in hopes that this will allow some improvement of his HIV encephalopathy. As noted during his most recent stay there was no evidence of SEAFOOD MANAGER syphilis and he was negative for ROEL Polyomavirus, making PML unlikely. For now continue the antiretrovirals and supportive care and placement will be attempted. On 08/21/2017 the patient is showing some improvement already since being admitted. The social work department is working diligently on trying to devise a acceptable discharge plan. The patient's HIV medications should be covered by [facility] and this may assist his placement in rehab or AFC. 08/24/2017 patient is having some improvement since admission. An ongoing discharge planning is in process. Either rehab or AFC is being requested. For the DVT been placed on Eliquis. Further physical therapy intervention is being requested which may further help with placement. Continue Stribild as before 08/26/2017 patient is stable no complaints of new pain or discomfort of the lower extremities. No difficulties with Eliquis for the DVT, continue the Stribild as before for treatment of his HIV and AIDS. Placement remains the single with difficult aspect of his overall care. 08/28/2017 patient remained stable and tolerating Stribild for his HIV treatment. Eliquis is also being tolerated for his DVT. It is related to the social work program that he likely will be able to be transferred to an adult foster detention in the near future. We'll be happy to follow in the office for his ongoing treatment of his HIV 08/29/2017 patient is showing some further improvement. Strength appears to be improving. As she receives treatment for his HIV infection the encephalopathy and neuropathy seems to be showing some improvement already. Continue with the Stribild. Working with the social worker psychiatric and discharge planners try to access if the [facility] program will cover his medications while he is in extended care or in AFC. 08/30/2017 place remains the biggest issue. No working with longterm to see if he cannot be placed in a longterm. Grandmother is working with social work. Also working with the [facility] to ensure he'll receive his medications at discharge. Follow up office in a month for follow-up blood work and evaluation. 09/04/2017 placement remains an ongoing barrier. Social work is working with every potential option including 24-hour care being set up in a home setting. If this is not possible then would consider Placement in our rehab facility.
[2017-09-05] MEDS: Elviteg/Cobi/Emtric/Tenofo Dis [Stribild Tablet] 1 TAB PO SCH (08:16)
[2017-09-05] MEDS: APIXABAN 5 MG TAB PO SCH ×2 (08:16→21:36)
[2017-09-05] MEDS: GABAPENTIN 300 MG CAP PO SCH ×3 (08:16→21:36)
[2017-09-05 13:54] VITALS: BMI 29.6
[2017-09-05] MEDS: ACETAMINOPHEN TAB 325 MG TAB PO PRN (16:21)
--- NOTE | 2017-09-05 17:40 | P.PN ---
Subjective Progress Note Date: 09/05/17 Progress note being dictated for Dr. 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 patient was discharge to home in the care of his mother while his grandmother was signed as his guardian. He brought in to the emergency room last night because his mother she could not take care of him anymore related to his lower extremity weakness, however patient denies to me any other further complaints. No chest pain, dyspnea, fever, change in urine or bowel habits 08/21/2017 Patient at bedside says his weakness in the lower extremity are improving today. His guardian and guarded mother is at bedside, discussed the case with her and she states that for 3 days after his discharge last time he wasn't getting his HIV medication for no specific reason, and he lost his improvement last time he was in the hospital while he is off his medication. Weakness is improved after restarted medication as per patient On 08/23/2017 Patient failed last night and hit his head, no arthritis, no wounds, patient had some headache with now resolved. Continue with neuro check Neurology saw the patient's and recommended Neurontin and physical therapy and Doppler of lower ext, pt states to me he has pain in his both legs only when uses them and that is been going on for about 2 weeks since he is been discharged last time , his pain is the same and not progressive, while lying in bed he has no pain Patient still pending a placement 08/24/2017 Patient is still complaining of leg pain and PT OT is following. Patient is being continued on anticoagulation. Patient is pending placement at this time. No complaints of chest pain or shortness of breath. No nausea vomiting or abdominal pain. No other acute overnight issues. 08/25/2017 Patient says that his pain is better today. Able to sit in the chair. Otherwise participating in physical therapy and able to walk with a walker. Possible transfer to rehab on Saturday. All other review of systems negative except the above Current medications reviewed 08/26/2017 no overnight events. Generalized weakness persists. Good diet intake. Complains of frontal headache.CT of head performed reporting no acute intracranial process; ventricles, basal cisterns and sulci-moderate enlargement unchanged from prior exam. Denies chest pain, palpitations or increasing shortness of breath. Denies abdominal pain, nausea vomiting. Discharge planning in progress for subacute rehab, placement pending as per social work. 08/27/2017 maintained on Eliquis for DVT. Continues on Stribild for HIV/AIDS as per ID. Good diet intake. no overnight events. 08/28/2017 no overnight events. Good diet intake, no nausea, vomiting or diarrhea. Denies chest pain, palpitations or increased shortness of breath.Generalized weakness persists. 08/29/2017 no overnight events. Ambulating with walker. Devin [facility] scheduled to evaluate patient for potential placement. Denies chest pain, palpitations or shortness of breath. 08/30/2017 good diet intake, no nausea vomiting or diarrhea. Ambulating with walker. Afebrile, normal WBC.VSS. Denies chest pain, palpitations or shortness of breath. [facility] interview scheduled for today. 09/04/2017 ambulating in hallway with walker, tolerated exertion well. Good diet intake, no nausea vomiting or diarrhea. Denies chest pain, palpitations or shortness of breath. Afebrile. Discharge planning in progress, social work and grandmother [facility]. 09/05/17 no overnight events. Good diet intake, no nausea vomiting or diarrhea. Ambulating with walker, tolerating exertion well. Afebrile. Awaiting placement. Objective - Vital Signs Vital signs: Vital Signs Temp 97.9 F 09/05/17 14:07 Pulse 78 09/05/17 16:00 Resp 18 09/05/17 16:00 BP 127/66 09/05/17 14:07 Pulse Ox 100 09/05/17 14:07 Intake & Output 09/04/17 09/05/17 09/05/17 18:59 06:59 18:59 Intake Total 2100 920 Output Total 0 1650 1000 Balance 0 450 -80 Weight 101.831 kg Intake: Oral 2100 920 Output: Urine 1650 1000 Stool 0 0 Other: Voiding Method Toilet Toilet Toilet Urinal Urinal Urinal Diaper Diaper Diaper Incontinent Incontinent Incontinent # Voids 4 4 - Exam Patient is sitting up in bed, no acute distress HEENT: Normocephalic. Neck is supple. Pupils reactive. Oral cavity moist. Neck supple, no JVD, CHEST EXAMINATION: Lungs clear to auscultation and percussion. No rhonchi, crackles or wheezes. CARDIAC: Normal S1, S2 with no gallops. No murmurs ABDOMEN: Soft. Bowel sounds normal. No organomegaly. Extremities: reveal no edema. No clubbing or cyanosis Neurologically awake, alert, oriented x3 with well-coordinated movements. No focal deficits noted Musculoskeletal: No joint swelling or deformity. Normal range of motion. Generalized weakness. - Labs CBC & Chem 7: 09/01/17 06:45 09/01/17 06:45 Assessment and Plan Assessment: 1. severe HIV peripheral neuropathy 2. Bilateral lower extremity weakness, mostly secondary to the above 3. HIV encephalopathy history 4. Anemia of chronic disease and 5. Acute right lower extremity DVT , on Eliquis. Plan: Continue on current medication regime , monitoring and symptomatic treatment. PT/OT. Increase ambulation. Discharge planning in progress pending placement. The impression and plan of care has been dictated as directed. : I performed a history and examination of this patient, discussed the same with the dictator. I agree with the dictator's note ,documented as a scribe. Any additional findings or plans will be noted.
--- NOTE | 2017-09-06 00:01 | P.PN ---
Subjective Progress Note Date: 09/05/17 his is a 27-year-old Afro-[place] male who had a recent hospitalization on at which time he presented with bilateral lower extremity weakness and broad-based gait. Been progressively getting worse for 2 months. Patient had a history of HIV diagnosed in 2008 but did not seek treatment. He had an extensive workup during his hospitalization including CAT scan, lumbar puncture , MRI of the brain and lumbar spine. He was seen by ID services as well as neurology and psychiatry. He was diagnosed with HIV with HIV encephalopathy and during his stay he was started on Stribild. His grandmother obtained guardianship but was resistant to discharge planning [place] [facility] or [place] [facility]. Extended care facilities would not accept the patient due to cost of HIV medication. Patient was discharged home living with his mother and has now returned to [facility] emergency center with same complaints of lower extremity pain and weakness but mother did relate to the ER physician that they have to move out of their house in 2 weeks and she is not able to take care of him and he needs long-term facility. Case management is following as well as social work will be following the patient. Patient may need a new guardian in place to better address patient's needs. Patient continues to complain of the pain in his lower legs and difficulty walking. He states his appetite is okay. He denies having any fever or chills. He denies any shortness of breath or chest pain. He is concerned for initiating urinary flow. He denies any pain with urination. On 08/21/2017 the patient is feeling better. He believes that his mentation is clear. He was up with a walker into the hallway, and is admitted to the restroom also. Does have some difficulties with urinary incontinence. Appetite is good and he is eating well. 08/24/2017 patient continues to have some improvement but is had some swelling to his lower extremities and a follow-up ultrasound of the right leg no shows evidence of a deep venous thrombosis that and I was not present on 08/06/2017. Patient does not have any other new complaints. Discharge plan remains the greatest difficulty at this time. 08/26/2017 finds the patient to be some further improvement. With physical therapy he got up with a walker and got to the hallway again. Tolerating his HIV medications without difficulty. He is eating well and denies other acute new troubles. Remains completely fixated on his urination 08/28/2017 patient seems to be doing slightly better. He is up with a walker and is able to get into the hallway. No further difficulties with his nutrition. Remains fixated on his urination. 08/29/2017 patient seems to be further improved today. He is eating well. He is up with a walker without significant difficulty. Less fixated and his urination today. Grandmother is present we continue to work with the local resources to see what the options are. 08/30/2017 patient has some further improvement. Continues to have a very significant appetite eating everything that is brought to him. He is up walking in the hallway with the walker. Is voicing no new complaints. Less fixated on his urinary system 09/04/2017 the patient is stable and is able to eat well. The patient is up and walking in the hallway with a walker. He continues to have inappropriate behavior. He is however comfortable 09/05/2017 patient is up in a bleeding a bit better than he was even a few days ago. He seems less fixated on his urination today. Nursing staff is not relating to some inappropriate behavior of the last few days. He knows his grandmother Abhinav is trying to work on a place for him to go. Objective - Vital Signs Vital signs: Vital Signs Temp 98.2 F 09/05/17 21:09 Pulse 90 09/05/17 21:09 Resp 16 09/05/17 23:08 BP 126/73 09/05/17 21:09 Pulse Ox 99 09/05/17 21:09 Intake & Output 09/05/17 09/05/17 09/06/17 06:59 18:59 06:59 Intake Total 2100 920 Output Total 1650 1000 0 Balance 450 -80 0 Weight 101.831 kg Intake: Oral 2100 920 Output: Urine 1650 1000 Stool 0 0 Other: Voiding Method Toilet Toilet Toilet Urinal Urinal Urinal Diaper Diaper Diaper Incontinent Incontinent Incontinent # Voids 4 2 - Exam Gen: This is a 27-year-old -[place] male. He is sitting in a chair at the bedside and appears to be comfortable and in no acute distress. HEENT: Head is atraumatic, normocephalic. Pupils equal, round. Sclerae is anicteric. Conjunctiva pink. Mucous members of the mouth are moist. No thrush noted. NECK: Supple. No JVD. No lymphadenopathy. No thyromegaly. LUNGS: Clear to auscultation. Scattered and expiratory wheeze. No intercostal retractions. HEART: Regular rate and rhythm. No murmur. ABDOMEN: Soft. Bowel sounds are present. No masses. No tenderness. EXTREMITIES: There is bilateral lower extremity edema left slightly greater than the right. No calf tenderness.patient complains of generalized pain with minimal movement of his legs. NEUROLOGICAL: Patient is awake, alert and is able to answer most questions appropriately. The patient is able to stand at the bedside without difficulty. - Labs CBC & Chem 7: 09/01/17 06:45 09/01/17 06:45 Labs: Laboratory Results WBC 7.0 k/uL (3.8-10.6) 09/01/17 06:45 RBC 3.52 m/uL (4.30-5.90) L 09/01/17 06:45 Hgb 11.2 gm/dL (13.0-17.5) L 09/01/17 06:45 Hct 34.0 % (39.0-53.0) L 09/01/17 06:45 MCV 96.5 fL (80.0-100.0) 09/01/17 06:45 MCH 31.7 pg (25.0-35.0) 09/01/17 06:45 MCHC 32.8 g/dL (31.0-37.0) 09/01/17 06:45 RDW 15.1 % (11.5-15.5) 09/01/17 06:45 Plt Count 290 k/uL (150-450) 09/01/17 06:45 Neutrophils % 58 % 08/31/17 07:05 Neutrophils % (Manual) 58 % 09/01/17 06:45 Lymphocytes % 27 % 08/31/17 07:05 Lymphocytes % (Manual) 32 % 09/01/17 06:45 Monocytes % 8 % 08/31/17 07:05 Monocytes % (Manual) 5 % 09/01/17 06:45 Eosinophils % 2 % 08/31/17 07:05 Eosinophils % (Manual) 4 % 09/01/17 06:45 Basophils % 1 % 08/31/17 07:05 Myelocytes % 1 % 09/01/17 06:45 Neutrophils # 3.4 k/uL (1.3-7.7) 08/31/17 07:05 Neutrophils # (Manual) 4.06 k/uL (1.3-7.7) 09/01/17 06:45 Lymphocytes # 1.6 k/uL (1.0-4.8) 08/31/17 07:05 Lymphocytes # (Manual) 2.24 k/uL (1.0-4.8) 09/01/17 06:45 Monocytes # 0.5 k/uL (0-1.0) 08/31/17 07:05 Monocytes # (Manual) 0.35 k/uL (0-1.0) 09/01/17 06:45 Eosinophils # 0.1 k/uL (0-0.7) 08/31/17 07:05 Eosinophils # (Manual) 0.28 k/uL (0-0.7) 09/01/17 06:45 Basophils # 0.0 k/uL (0-0.2) 08/31/17 07:05 Myelocytes # (Manual) 0.07 k/uL (0) H 09/01/17 06:45 Nucleated RBCs 0 /100 WBC (0-0) 09/01/17 06:45 Polychromasia Present 09/01/17 06:45 Sodium 143 mmol/L (137-145) 09/01/17 06:45 Potassium 4.4 mmol/L (3.5-5.1) 09/01/17 06:45 Chloride 103 mmol/L (98-107) 09/01/17 06:45 Carbon Dioxide 29 mmol/L (22-30) 09/01/17 06:45 Anion Gap 11 mmol/L 09/01/17 06:45 BUN 16 mg/dL (9-20) 09/01/17 06:45 Creatinine 0.85 mg/dL (0.66-1.25) 09/01/17 06:45 Est GFR (CKD-EPI)AfAm >90 (>60 ml/min/1.73 sqM) 09/01/17 06:45 Est GFR (CKD-EPI)NonAf >90 (>60 ml/min/1.73 sqM) 09/01/17 06:45 Glucose 86 mg/dL (74-99) 09/01/17 06:45 Calcium 9.2 mg/dL (8.4-10.2) 09/01/17 06:45 Assessment and Plan (1) HIV encephalopathy Current Visit: No Status: Acute Code(s): B20 - HUMAN IMMUNODEFICIENCY VIRUS [HIV] DISEASE; G93.40 - ENCEPHALOPATHY, UNSPECIFIED SNOMED Code(s): 602682337 Plan: Patient is sitting up eating his lunch in no distress. Is able to stand briefly to utilize the commode. Does have intermittent difficulties with urinary incontinence. Is related that the social situation has been his biggest issue. Apparently his mother does not believe she can care for him brought him back to Hospital and since she's moving away in 2 weeks and he'll be on his own. Social work is now in the midst of determining best possible plan. The patient to remain on his Sribild as before in hopes that this will allow some improvement of his HIV encephalopathy. As noted during his most recent stay there was no evidence of [employer] syphilis and he was negative for ROEL Polyomavirus, making PML unlikely. For now continue the antiretrovirals and supportive care and placement will be attempted. On 08/21/2017 the patient is showing some improvement already since being admitted. The social work department is working diligently on trying to devise a acceptable discharge plan. The patient's HIV medications should be covered by ADAP and this may assist his placement in rehab or [facility]. 08/24/2017 patient is having some improvement since admission. An ongoing discharge planning is in process. Either rehab or [facility] is being requested. For the DVT been placed on Eliquis. Further physical therapy intervention is being requested which may further help with placement. Continue Stribild as before 08/26/2017 patient is stable no complaints of new pain or discomfort of the lower extremities. No difficulties with Eliquis for the DVT, continue the Stribild as before for treatment of his HIV and AIDS. Placement remains the single with difficult aspect of his overall care. 08/28/2017 patient remained stable and tolerating Stribild for his HIV treatment. Eliquis is also being tolerated for his DVT. It is related to the social work program that he likely will be able to be transferred to an adult foster intermediate in the near future. We'll be happy to follow in the office for his ongoing treatment of his HIV 08/29/2017 patient is showing some further improvement. Strength appears to be improving. As she receives treatment for his HIV infection the encephalopathy and neuropathy seems to be showing some improvement already. Continue with the Maxxibild. Working with the social services assistant and discharge planners try to access if the ADAP program will cover his medications while he is in extended care or in [facility]. 08/30/2017 place remains the biggest issue. [place] working [place] [facility] to see if [place] be [place] [facility] [place]. Grandmother is working with social work. Also working with the [facility] to ensure he'll receive his medications at discharge. Follow up office in a month for follow-up blood work and evaluation. 09/04/2017 placement remains an ongoing barrier. Social work is working with every potential option including 24-hour care being set up in a home setting. If this is not possible then would consider Placement in our rehab facility. 09/05/2017 placement remains a significant difficulty at this time and social work continues to look through many options including potential for 24-hour in- home care. Continues to look at the possibility of placement in our rehab facility. Continue current antiretroviral therapy and will need to recheck his CD4 count and viral load in the next week or so
[2017-09-06] MEDS: ACETAMINOPHEN TAB 325 MG TAB PO PRN ×3 (01:16→21:09)
[2017-09-06] MEDS: GABAPENTIN 300 MG CAP PO SCH ×3 (09:17→21:10)
[2017-09-06] MEDS: APIXABAN 5 MG TAB PO SCH (09:17)
[2017-09-06] MEDS: Elviteg/Cobi/Emtric/Tenofo Dis [Stribild Tablet] 1 TAB PO SCH (09:17)
--- NOTE | 2017-09-06 16:11 | P.PN ---
Subjective Progress Note Date: 09/06/17 Progress note being dictated for Dr. 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 patient was discharge to home in the care of his mother while his grandmother was signed as his guardian. He brought in to the emergency room last night because his mother she could not take care of him anymore related to his lower extremity weakness, however patient denies to me any other further complaints. No chest pain, dyspnea, fever, change in urine or bowel habits 08/21/2017 Patient at bedside says his weakness in the lower extremity are improving today. His guardian and guarded mother is at bedside, discussed the case with her and she states that for 3 days after his discharge last time he wasn't getting his HIV medication for no specific reason, and he lost his improvement last time he was in the hospital while he is off his medication. Weakness is improved after restarted medication as per patient On 08/23/2017 Patient failed last night and hit his head, no arthritis, no wounds, patient had some headache with now resolved. Continue with neuro check Neurology saw the patient's and recommended Neurontin and physical therapy and Doppler of lower ext, pt states to me he has pain in his both legs only when uses them and that is been going on for about 2 weeks since he is been discharged last time , his pain is the same and not progressive, while lying in bed he has no pain Patient still pending a placement 08/24/2017 Patient is still complaining of leg pain and PT OT is following. Patient is being continued on anticoagulation. Patient is pending placement at this time. No complaints of chest pain or shortness of breath. No nausea vomiting or abdominal pain. No other acute overnight issues. 08/25/2017 Patient says that his pain is better today. Able to sit in the chair. Otherwise participating in physical therapy and able to walk with a walker. Possible transfer to rehab on Saturday. All other review of systems negative except the above Current medications reviewed 08/26/2017 no overnight events. Generalized weakness persists. Good diet intake. Complains of frontal headache.CT of head performed reporting no acute intracranial process; ventricles, basal cisterns and sulci-moderate enlargement unchanged from prior exam. Denies chest pain, palpitations or increasing shortness of breath. Denies abdominal pain, nausea vomiting. Discharge planning in progress for subacute rehab, placement pending as per social work. 08/27/2017 maintained on Eliquis for DVT. Continues on Stribild for HIV/AIDS as per ID. Good diet intake. no overnight events. 08/28/2017 no overnight events. Good diet intake, no nausea, vomiting or diarrhea. Denies chest pain, palpitations or increased shortness of breath.Generalized weakness persists. 08/29/2017 no overnight events. Ambulating with walker. Devin [facility] scheduled to evaluate patient for potential placement. Denies chest pain, palpitations or shortness of breath. 08/30/2017 good diet intake, no nausea vomiting or diarrhea. Ambulating with walker. Afebrile, normal WBC.VSS. Denies chest pain, palpitations or shortness of breath. AF interview scheduled for today. 09/04/2017 ambulating in hallway with walker, tolerated exertion well. Good diet intake, no nausea vomiting or diarrhea. Denies chest pain, palpitations or shortness of breath. Afebrile. Discharge planning in progress, social work and grandmother [facility] with [facility]. 09/05/17 no overnight events. Good diet intake, no nausea vomiting or diarrhea. Ambulating with walker, tolerating exertion well. Afebrile. Awaiting placement. 09/06/2017 continues to do well, denies chest pain, palpitations or increased shortness of breath. Good diet intake, no nausea, vomiting. Ambulating with walker. Objective - Vital Signs Vital signs: Vital Signs Temp 98.3 F 09/06/17 14:48 Pulse 84 09/06/17 14:48 Resp 16 09/06/17 14:48 BP 126/63 09/06/17 14:48 Pulse Ox 99 09/06/17 14:48 Intake & Output 09/05/17 09/06/17 09/06/17 18:59 06:59 18:59 Intake Total 920 1920 Output Total 1000 0 0 Balance -80 0 1920 Weight 101.831 kg Intake: Oral 920 1920 Output: Urine 1000 Stool 0 0 0 Other: Voiding Method Toilet Toilet Toilet Urinal Urinal Urinal Diaper Diaper Diaper Incontinent Incontinent Incontinent # Voids 4 2 4 - Exam Patient is sitting up in chair, no acute distress HEENT: Normocephalic. Neck is supple. Pupils reactive. Oral cavity moist. Neck supple, no JVD, CHEST EXAMINATION: Lungs clear to auscultation and percussion. No rhonchi, crackles or wheezes. CARDIAC: Normal S1, S2 with no gallops. No murmurs ABDOMEN: Soft. Bowel sounds normal. No organomegaly. Extremities: reveal no edema. No clubbing or cyanosis Neurologically awake, alert, oriented x3 with well-coordinated movements. No focal deficits noted Musculoskeletal: No joint swelling or deformity. Normal range of motion. Generalized weakness. - Labs CBC & Chem 7: 09/01/17 06:45 09/01/17 06:45 Assessment and Plan Assessment: 1. severe HIV peripheral neuropathy 2. Bilateral lower extremity weakness, mostly secondary to the above 3. HIV encephalopathy history 4. Anemia of chronic disease and 5. Acute right lower extremity DVT , on Eliquis. Plan: Continue on current medication regime , monitoring and symptomatic treatment. PT/OT. Increase ambulation. Discharge planning in progress pending placement. The impression and plan of care has been dictated as directed. : I performed a history and examination of this patient, discussed the same with the dictator. I agree with the dictator's note ,documented as a scribe. Any additional findings or plans will be noted.
--- NOTE | 2017-09-06 17:57 | P.PN ---
Subjective Progress Note Date: 09/06/17 his is a 27-year-old Afro-[place] male who had a recent hospitalization on at which time he presented with bilateral lower extremity weakness and broad-based gait. Been progressively getting worse for 2 months. Patient had a history of HIV diagnosed in 2008 but did not seek treatment. He had an extensive workup during his hospitalization including CAT scan, lumbar puncture , MRI of the brain and lumbar spine. He was seen by ID services as well as neurology and psychiatry. He was diagnosed with HIV with HIV encephalopathy and during his stay he was started on Stribild. His grandmother obtained guardianship but was resistant to discharge planning for AFC or long-term. Extended care facilities would not accept the patient due to cost of HIV medication. Patient was discharged home living with his mother and has now returned to [facility] emergency center with same complaints of lower extremity pain and weakness but mother did relate to the ER physician that they have to move out of their house in 2 weeks and she is not able to take care of him and he needs long-term facility. Case management is following as well as social work will be following the patient. Patient may need a new guardian in place to better address patient's needs. Patient continues to complain of the pain in his lower legs and difficulty walking. He states his appetite is okay. He denies having any fever or chills. He denies any shortness of breath or chest pain. He is concerned for initiating urinary flow. He denies any pain with urination. On 08/21/2017 the patient is feeling better. He believes that his mentation is clear. He was up with a walker into the hallway, and is admitted to the restroom also. Does have some difficulties with urinary incontinence. Appetite is good and he is eating well. 08/24/2017 patient continues to have some improvement but is had some swelling to his lower extremities and a follow-up ultrasound of the right leg no shows evidence of a deep venous thrombosis that and I was not present on 08/06/2017. Patient does not have any other new complaints. Discharge plan remains the greatest difficulty at this time. 08/26/2017 finds the patient to be some further improvement. With physical therapy he got up with a walker and got to the hallway again. Tolerating his HIV medications without difficulty. He is eating well and denies other acute new troubles. Remains completely fixated on his urination 08/28/2017 patient seems to be doing slightly better. He is up with a walker and is able to get into the hallway. No further difficulties with his nutrition. Remains fixated on his urination. 08/29/2017 patient seems to be further improved today. He is eating well. He is up with a walker without significant difficulty. Less fixated and his urination today. Grandmother is present we continue to work with the local resources to see what the options are. 08/30/2017 patient has some further improvement. Continues to have a very significant appetite eating everything that is brought to him. He is up walking in the hallway with the walker. Is voicing no new complaints. Less fixated on his urinary system 09/04/2017 the patient is stable and is able to eat well. The patient is up and walking in the hallway with a walker. He continues to have inappropriate behavior. He is however comfortable 09/05/2017 patient is up in a bleeding a bit better than he was even a few days ago. He seems less fixated on his urination today. Nursing staff is not relating to some inappropriate behavior of the last few days. He knows his grandmother Abhinav is trying to work on a place for him to go. 09/06/2017 still in need of placement but is feeling OK. Objective - Vital Signs Vital signs: Vital Signs Temp 98.3 F 09/06/17 14:48 Pulse 87 09/06/17 16:00 Resp 16 09/06/17 16:00 BP 126/63 09/06/17 14:48 Pulse Ox 99 09/06/17 14:48 Intake & Output 09/05/17 09/06/17 09/06/17 18:59 06:59 18:59 Intake Total 920 1920 Output Total 1000 0 0 Balance -80 0 1920 Weight 101.831 kg Intake: Oral 920 1920 Output: Urine 1000 Stool 0 0 0 Other: Voiding Method Toilet Toilet Toilet Urinal Urinal Urinal Diaper Diaper Diaper Incontinent Incontinent Incontinent # Voids 4 2 4 - Exam Gen: This is a 27-year-old -[place] male. He is sitting in a chair at the bedside and appears to be comfortable and in no acute distress. HEENT: Head is atraumatic, normocephalic. Pupils equal, round. Sclerae is anicteric. Conjunctiva pink. Mucous members of the mouth are moist. No thrush noted. NECK: Supple. No JVD. No lymphadenopathy. No thyromegaly. LUNGS: Clear to auscultation. Scattered and expiratory wheeze. No intercostal retractions. HEART: Regular rate and rhythm. No murmur. ABDOMEN: Soft. Bowel sounds are present. No masses. No tenderness. EXTREMITIES: There is bilateral lower extremity edema left slightly greater than the right. No calf tenderness.patient complains of generalized pain with minimal movement of his legs. NEUROLOGICAL: Patient is awake, alert and is able to answer most questions appropriately. The patient is able to stand at the bedside without difficulty. - Labs CBC & Chem 7: 09/01/17 06:45 09/01/17 06:45 Labs: Laboratory Results WBC 7.0 k/uL (3.8-10.6) 09/01/17 06:45 RBC 3.52 m/uL (4.30-5.90) L 09/01/17 06:45 Hgb 11.2 gm/dL (13.0-17.5) L 09/01/17 06:45 Hct 34.0 % (39.0-53.0) L 09/01/17 06:45 MCV 96.5 fL (80.0-100.0) 09/01/17 06:45 MCH 31.7 pg (25.0-35.0) 09/01/17 06:45 MCHC 32.8 g/dL (31.0-37.0) 09/01/17 06:45 RDW 15.1 % (11.5-15.5) 09/01/17 06:45 Plt Count 290 k/uL (150-450) 09/01/17 06:45 Neutrophils % 58 % 08/31/17 07:05 Neutrophils % (Manual) 58 % 09/01/17 06:45 Lymphocytes % 27 % 08/31/17 07:05 Lymphocytes % (Manual) 32 % 09/01/17 06:45 Monocytes % 8 % 08/31/17 07:05 Monocytes % (Manual) 5 % 09/01/17 06:45 Eosinophils % 2 % 08/31/17 07:05 Eosinophils % (Manual) 4 % 09/01/17 06:45 Basophils % 1 % 08/31/17 07:05 Myelocytes % 1 % 09/01/17 06:45 Neutrophils # 3.4 k/uL (1.3-7.7) 08/31/17 07:05 Neutrophils # (Manual) 4.06 k/uL (1.3-7.7) 09/01/17 06:45 Lymphocytes # 1.6 k/uL (1.0-4.8) 08/31/17 07:05 Lymphocytes # (Manual) 2.24 k/uL (1.0-4.8) 09/01/17 06:45 Monocytes # 0.5 k/uL (0-1.0) 08/31/17 07:05 Monocytes # (Manual) 0.35 k/uL (0-1.0) 09/01/17 06:45 Eosinophils # 0.1 k/uL (0-0.7) 08/31/17 07:05 Eosinophils # (Manual) 0.28 k/uL (0-0.7) 09/01/17 06:45 Basophils # 0.0 k/uL (0-0.2) 08/31/17 07:05 Myelocytes # (Manual) 0.07 k/uL (0) H 09/01/17 06:45 Nucleated RBCs 0 /100 WBC (0-0) 09/01/17 06:45 Polychromasia Present 09/01/17 06:45 Sodium 143 mmol/L (137-145) 09/01/17 06:45 Potassium 4.4 mmol/L (3.5-5.1) 09/01/17 06:45 Chloride 103 mmol/L (98-107) 09/01/17 06:45 Carbon Dioxide 29 mmol/L (22-30) 09/01/17 06:45 Anion Gap 11 mmol/L 09/01/17 06:45 BUN 16 mg/dL (9-20) 09/01/17 06:45 Creatinine 0.85 mg/dL (0.66-1.25) 09/01/17 06:45 Est GFR (CKD-EPI)AfAm >90 (>60 ml/min/1.73 sqM) 09/01/17 06:45 Est GFR (CKD-EPI)NonAf >90 (>60 ml/min/1.73 sqM) 09/01/17 06:45 Glucose 86 mg/dL (74-99) 09/01/17 06:45 Calcium 9.2 mg/dL (8.4-10.2) 09/01/17 06:45 Assessment and Plan (1) HIV encephalopathy Current Visit: No Status: Acute Code(s): B20 - HUMAN IMMUNODEFICIENCY VIRUS [HIV] DISEASE; G93.40 - ENCEPHALOPATHY, UNSPECIFIED SNOMED Code(s): 166932508 Plan: Patient is sitting up eating his lunch in no distress. Is able to stand briefly to utilize the commode. Does have intermittent difficulties with urinary incontinence. Is related that the social situation has been his biggest issue. Apparently his mother does not believe she can care for him brought him back to Hospital and since she's moving away in 2 weeks and he'll be on his own. Social work is now in the midst of determining best possible plan. The patient to remain on his Sribild as before in hopes that this will allow some improvement of his HIV encephalopathy. As noted during his most recent stay there was no evidence of INSTRUMENTATION TECHNOLOGIST syphilis and he was negative for ROEL Polyomavirus, making PML unlikely. For now continue the antiretrovirals and supportive care and placement will be attempted. On 08/21/2017 the patient is showing some improvement already since being admitted. The social work department is working diligently on trying to devise a acceptable discharge plan. The patient's HIV medications should be covered by ADAP and this may assist his placement in rehab or AFC. 08/24/2017 patient is having some improvement since admission. An ongoing discharge planning is in process. Either rehab or AFC is being requested. For the DVT been placed on Eliquis. Further physical therapy intervention is being requested which may further help with placement. Continue Stribild as before 08/26/2017 patient is stable no complaints of new pain or discomfort of the lower extremities. No difficulties with Eliquis for the DVT, continue the Stribild as before for treatment of his HIV and AIDS. Placement remains the single with difficult aspect of his overall care. 08/28/2017 patient remained stable and tolerating Stribild for his HIV treatment. Eliquis is also being tolerated for his DVT. It is related to the social work program that he likely will be able to be transferred to an adult foster assisted in the near future. We'll be happy to follow in the office for his ongoing treatment of his HIV 08/29/2017 patient is showing some further improvement. Strength appears to be improving. As she receives treatment for his HIV infection the encephalopathy and neuropathy seems to be showing some improvement already. Continue with the Stribild. Working with the social sciences lecturer and discharge planners try to access if the ADAP program will cover his medications while he is in extended care or in AFC. 08/30/2017 place remains the biggest issue. No working with long-term to see if he cannot be placed in a long-term. Grandmother is working with social work. Also working with the ADAP to ensure he'll receive his medications at discharge. Follow up office in a month for follow-up blood work and evaluation. 09/04/2017 placement remains an ongoing barrier. Social work is working with every potential option including 24-hour care being set up in a home setting. If this is not possible then would consider Placement in our rehab facility. 09/05/2017 placement remains a significant difficulty at this time and social work continues to look through many options including potential for 24-hour in- home care. Continues to look at the possibility of placement in our rehab facility. Continue current antiretroviral therapy and will need to recheck his CD4 count and viral load in the next week or so 09/06/2017 little change of status last few days but is improved from admit last time. Placement remains a significant barrier. Will check response to anti retroviral therapy next week.
[2017-09-07] MEDS: ACETAMINOPHEN TAB 325 MG TAB PO PRN ×3 (07:10→23:46)
[2017-09-07] MEDS: GABAPENTIN 300 MG CAP PO SCH ×3 (07:12→21:18)
[2017-09-07] MEDS: APIXABAN 5 MG TAB PO SCH ×2 (07:12→21:18)
[2017-09-07] MEDS: Elviteg/Cobi/Emtric/Tenofo Dis [Stribild Tablet] 1 TAB PO SCH ×3 (08:18→09:03)
--- NOTE | 2017-09-07 11:39 | P.PN ---
Subjective Progress Note Date: 09/07/17 Principal diagnosis: Lower extremity DVT This is a 27-year-old -[place] male patient who was brought to the emergency department with lower extremity weakness and inability to ambulate. Patient has a known history of HIV and HIV encephalopathy is most likely the etiology. The patient is alert and oriented. Able to participate to a conversation. He does get confused and has some periods are inappropriate behavior that the nursing has documented. He has been appropriate during my examination. His mobility continues to improve. He states he still has some leg weakness. He denies any chest discomfort or shortness of breath. His appetite is good. No nausea. He is urinating without any difficulties and has had bowel movements. Objective - Vital Signs Vital signs: Vital Signs Temp 97.4 F L 09/07/17 05:30 Pulse 61 09/07/17 05:30 Resp 16 09/07/17 05:30 BP 128/72 09/07/17 05:30 Pulse Ox 99 09/07/17 05:30 Intake & Output 09/06/17 09/07/17 09/07/17 18:59 06:59 18:59 Intake Total 1920 2100 Output Total 0 0 Balance 1920 2100 Weight 101.831 kg Intake: Oral 1920 2100 Output: Stool 0 0 Other: Voiding Method Toilet Toilet Urinal Urinal Diaper Incontinent # Voids 4 3 - Constitutional General appearance: Present: average body habitus, cooperative - EENT Eyes: Present: normal appearance Ears: bilateral: normal - Neck Neck: Present: normal ROM - Respiratory Respiratory: bilateral: CTA - Cardiovascular Rhythm: regular - Gastrointestinal General gastrointestinal: Present: normal bowel sounds - Neurologic Neurologic: Present: CNII-XII intact - Musculoskeletal Musculoskeletal: Present: generalized weakness - Psychiatric Psychiatric: Present: appropriate affect - Allied health notes Allied health notes reviewed: nursing - Labs CBC & Chem 7: 09/01/17 06:45 09/01/17 06:45 Assessment and Plan Assessment: 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 See physical and occupational therapy. Increase ambulation as tolerated. Discharge planning in progress for placement needs. We will continue to follow him closely.
[2017-09-08] MEDS: Elviteg/Cobi/Emtric/Tenofo Dis [Stribild Tablet] 1 TAB PO SCH (08:00)
[2017-09-08] MEDS: APIXABAN 5 MG TAB PO SCH ×2 (08:01→21:09)
[2017-09-08] MEDS: GABAPENTIN 300 MG CAP PO SCH ×3 (08:01→21:09)
[2017-09-08] MEDS: ACETAMINOPHEN TAB 325 MG TAB PO PRN ×3 (08:04→20:04)
--- NOTE | 2017-09-08 13:34 | P.PN ---
Subjective 27-year-old -[place]aur[place] male patient who was brought to the emergency department with lower extremity weakness and inability to ambulate. Patient has a known history of HIV and HIV encephalopathy is most likely the etiology. The patient is alert and oriented. Able to participate to a conversation. He does get confused and has some periods are inappropriate behavior that the nursing has documented. He has been appropriate during my examination. His mobility continues to improve. He states he still has some leg weakness. He denies any chest discomfort or shortness of breath. His appetite is good. No nausea. He is urinating without any difficulties and has had bowel movements. 09/09/2079 no overnight events awaiting disposition Objective - Vital Signs Vital signs: Vital Signs Temp 98.1 F 09/08/17 05:30 Pulse 84 09/08/17 05:30 Resp 20 09/08/17 05:30 BP 135/79 09/08/17 05:30 Pulse Ox 98 09/08/17 05:30 Intake & Output 09/07/17 09/08/17 09/08/17 18:59 06:59 18:59 Intake Total 1750 1750 Output Total 1000 0 Balance 750 0 1750 Weight 101.831 kg Intake: Oral 1750 1750 Output: Urine 1000 Stool 0 0 Other: Voiding Method Toilet Toilet Toilet Urinal Urinal # Voids 4 3 4 # Bowel Movements 1 - Exam PHYSICAL EXAMINATION: GENERAL: The patient is alert and oriented x3, not in any acute distress. Well developed, well nourished. Patient does have on and off confusion HEENT: Pupils are round and equally reacting to light. EOMI. No scleral icterus. No conjunctival pallor. Normocephalic, atraumatic. No pharyngeal erythema. No thyromegaly. CARDIOVASCULAR: S1 and S2 present. No murmurs, rubs, or gallops. PULMONARY: Chest is clear to auscultation, no wheezing or crackles. ABDOMEN: Soft, nontender, nondistended, normoactive bowel sounds. No palpable organomegaly. MUSCULOSKELETAL: No joint swelling or deformity. EXTREMITIES: No cyanosis, clubbing, or pedal edema. NEUROLOGICAL: Gross neurological examination did not reveal any focal deficits. SKIN: No rashes. 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 See physical and occupational therapy. Increase ambulation as tolerated. Discharge planning in progress for placement needs. We will continue to follow him closely.
[2017-09-09] MEDS: ACETAMINOPHEN TAB 325 MG TAB PO PRN ×4 (02:08→21:28)
[2017-09-09] MEDS: GABAPENTIN 300 MG CAP PO SCH ×3 (08:11→21:28)
[2017-09-09] MEDS: APIXABAN 5 MG TAB PO SCH ×2 (08:11→21:28)
[2017-09-09] MEDS: Elviteg/Cobi/Emtric/Tenofo Dis [Stribild Tablet] 1 TAB PO SCH (08:11)
--- NOTE | 2017-09-09 13:22 | P.PN ---
Subjective Progress Note Date: 09/09/17 Progress note being dictated for Dr. 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 patient was discharge to home in the care of his mother while his grandmother was signed as his guardian. He brought in to the emergency room last night because his mother she could not take care of him anymore related to his lower extremity weakness, however patient denies to me any other further complaints. No chest pain, dyspnea, fever, change in urine or bowel habits 08/21/2017 Patient at bedside says his weakness in the lower extremity are improving today. His guardian and guarded mother is at bedside, discussed the case with her and she states that for 3 days after his discharge last time he wasn't getting his HIV medication for no specific reason, and he lost his improvement last time he was in the hospital while he is off his medication. Weakness is improved after restarted medication as per patient On 08/23/2017 Patient failed last night and hit his head, no arthritis, no wounds, patient had some headache with now resolved. Continue with neuro check Neurology saw the patient's and recommended Neurontin and physical therapy and Doppler of lower ext, pt states to me he has pain in his both legs only when uses them and that is been going on for about 2 weeks since he is been discharged last time , his pain is the same and not progressive, while lying in bed he has no pain Patient still pending a placement 08/24/2017 Patient is still complaining of leg pain and PT OT is following. Patient is being continued on anticoagulation. Patient is pending placement at this time. No complaints of chest pain or shortness of breath. No nausea vomiting or abdominal pain. No other acute overnight issues. 08/25/2017 Patient says that his pain is better today. Able to sit in the chair. Otherwise participating in physical therapy and able to walk with a walker. Possible transfer to rehab on Saturday. All other review of systems negative except the above Current medications reviewed 08/26/2017 no overnight events. Generalized weakness persists. Good diet intake. Complains of frontal headache.CT of head performed reporting no acute intracranial process; ventricles, basal cisterns and sulci-moderate enlargement unchanged from prior exam. Denies chest pain, palpitations or increasing shortness of breath. Denies abdominal pain, nausea vomiting. Discharge planning in progress for subacute rehab, placement pending as per social work. 08/27/2017 maintained on Eliquis for DVT. Continues on Stribild for HIV/AIDS as per ID. Good diet intake. no overnight events. 08/28/2017 no overnight events. Good diet intake, no nausea, vomiting or diarrhea. Denies chest pain, palpitations or increased shortness of breath.Generalized weakness persists. 08/29/2017 no overnight events. Ambulating with walker. [facility] scheduled to evaluate patient for potential placement. Denies chest pain, palpitations or shortness of breath. 08/30/2017 good diet intake, no nausea vomiting or diarrhea. Ambulating with walker. Afebrile, normal WBC.VSS. Denies chest pain, palpitations or shortness of breath. AF interview scheduled for today. 09/04/2017 ambulating in hallway with walker, tolerated exertion well. Good diet intake, no nausea vomiting or diarrhea. Denies chest pain, palpitations or shortness of breath. Afebrile. Discharge planning in progress, social work and grandmother [facility] with [facility]. 09/05/17 no overnight events. Good diet intake, no nausea vomiting or diarrhea. Ambulating with walker, tolerating exertion well. Afebrile. Awaiting placement. 09/06/2017 continues to do well, denies chest pain, palpitations or increased shortness of breath. Good diet intake, no nausea, vomiting. Ambulating with walker. 09/09/2017 no overnight events. Objective - Vital Signs Vital signs: Vital Signs Temp 98.6 F 09/09/17 05:10 Pulse 90 09/09/17 08:13 Resp 20 09/09/17 08:13 BP 122/63 09/09/17 05:10 Pulse Ox 97 09/09/17 05:10 Intake & Output 09/08/17 09/09/17 09/09/17 18:59 06:59 18:59 Intake Total 1750 3940 Output Total 2500 250 Balance -750 3940 -250 Weight 101.831 kg Intake: Oral 1750 3940 Output: Urine 2500 250 Stool 0 Other: Voiding Method Toilet Toilet Toilet # Voids 4 1 1 # Bowel Movements 1 1 1 - Exam Patient is sitting up in bed, no acute distress,Patient does have on and off confusion HEENT: Normocephalic. Neck is supple. Pupils reactive. Oral cavity moist. Neck supple, no JVD, CHEST EXAMINATION: Lungs clear to auscultation and percussion. No rhonchi, crackles or wheezes. CARDIAC: Normal S1, S2 with no gallops. No murmurs ABDOMEN: Soft. Bowel sounds normal. No organomegaly. Extremities: reveal no edema. No clubbing or cyanosis Neurologically awake, alert, oriented x3 with well-coordinated movements. No focal deficits noted Musculoskeletal: No joint swelling or deformity. Normal range of motion. Generalized weakness. - Labs CBC & Chem 7: 09/01/17 06:45 09/01/17 06:45 Assessment and Plan Assessment: 1. severe HIV peripheral neuropathy 2. Bilateral lower extremity weakness, mostly secondary to the above 3. HIV encephalopathy history 4. Anemia of chronic disease and 5. Acute right lower extremity DVT , on Eliquis. Plan: Continue on current medication regime , Eliquis, monitoring and symptomatic treatment. PT/OT. Increase ambulation. Discharge planning in progress pending placement. The impression and plan of care has been dictated as directed. : I performed a history and examination of this patient, discussed the same with the dictator. I agree with the dictator's note ,documented as a scribe. Any additional findings or plans will be noted.
--- NOTE | 2017-09-09 17:33 | P.PN ---
Subjective Progress Note Date: 09/09/17 his is a 27-year-old Afro-Monegasque male who had a recent hospitalization on at which time he presented with bilateral lower extremity weakness and broad-based gait. Been progressively getting worse for 2 months. Patient had a history of HIV diagnosed in 2008 but did not seek treatment. He had an extensive workup during his hospitalization including CAT scan, lumbar puncture , MRI of the brain and lumbar spine. He was seen by ID services as well as neurology and psychiatry. He was diagnosed with HIV with HIV encephalopathy and during his stay he was started on Stribild. His grandmother obtained guardianship but was resistant to discharge planning for AFC or senior living. Extended care facilities would not accept the patient due to cost of HIV medication. Patient was discharged home living with his mother and has now returned to [facility] emergency center with same complaints of lower extremity pain and weakness but mother did relate to the ER physician that they have to move out of their house in 2 weeks and she is not able to take care of him and he needs long-term facility. Case management is following as well as social work will be following the patient. Patient may need a new guardian in place to better address patient's needs. Patient continues to complain of the pain in his lower legs and difficulty walking. He states his appetite is okay. He denies having any fever or chills. He denies any shortness of breath or chest pain. He is concerned for initiating urinary flow. He denies any pain with urination. On 08/21/2017 the patient is feeling better. He believes that his mentation is clear. He was up with a walker into the hallway, and is admitted to the restroom also. Does have some difficulties with urinary incontinence. Appetite is good and he is eating well. 08/24/2017 patient continues to have some improvement but is had some swelling to his lower extremities and a follow-up ultrasound of the right leg no shows evidence of a deep venous thrombosis that and I was not present on 08/06/2017. Patient does not have any other new complaints. Discharge plan remains the greatest difficulty at this time. 08/26/2017 finds the patient to be some further improvement. With physical therapy he got up with a walker and got to the hallway again. Tolerating his HIV medications without difficulty. He is eating well and denies other acute new troubles. Remains completely fixated on his urination 08/28/2017 patient seems to be doing slightly better. He is up with a walker and is able to get into the hallway. No further difficulties with his nutrition. Remains fixated on his urination. 08/29/2017 patient seems to be further improved today. He is eating well. He is up with a walker without significant difficulty. Less fixated and his urination today. Grandmother is present we continue to work with the local resources to see what the options are. 08/30/2017 patient has some further improvement. Continues to have a very significant appetite eating everything that is brought to him. He is up walking in the hallway with the walker. Is voicing no new complaints. Less fixated on his urinary system 09/04/2017 the patient is stable and is able to eat well. The patient is up and walking in the hallway with a walker. He continues to have inappropriate behavior. He is however comfortable 09/05/2017 patient is up in a bleeding a bit better than he was even a few days ago. He seems less fixated on his urination today. Nursing staff is not relating to some inappropriate behavior of the last few days. He knows his grandmother Abhinav is trying to work on a place for him to go. 09/06/2017 still in need of placement but is feeling OK. 09/10/2007. Await further input as far as placement Objective - Vital Signs Vital signs: Vital Signs Temp 98.4 F 09/09/17 14:05 Pulse 86 09/09/17 16:00 Resp 18 09/09/17 16:00 BP 126/79 09/09/17 14:05 Pulse Ox 98 09/09/17 14:05 Intake & Output 09/08/17 09/09/17 09/09/17 18:59 06:59 18:59 Intake Total 1750 3940 1000 Output Total 2500 250 Balance -750 3940 750 Weight 101.831 kg Intake: Oral 1750 3940 1000 Output: Urine 2500 250 Stool 0 0 Other: Voiding Method Toilet Toilet Toilet # Voids 4 1 1 # Bowel Movements 1 1 1 - Exam Gen: This is a 27-year-old -Monegasque male. He is sitting in a chair at the bedside and appears to be comfortable and in no acute distress. HEENT: Head is atraumatic, normocephalic. Pupils equal, round. Sclerae is anicteric. Conjunctiva pink. Mucous members of the mouth are moist. No thrush noted. NECK: Supple. No JVD. No lymphadenopathy. No thyromegaly. LUNGS: Clear to auscultation. Scattered and expiratory wheeze. No intercostal retractions. HEART: Regular rate and rhythm. No murmur. ABDOMEN: Soft. Bowel sounds are present. No masses. No tenderness. EXTREMITIES: There is bilateral lower extremity edema left slightly greater than the right. No calf tenderness.patient complains of generalized pain with minimal movement of his legs. NEUROLOGICAL: Patient is awake, alert and is able to answer most questions appropriately. The patient is able to stand at the bedside without difficulty. - Labs CBC & Chem 7: 09/01/17 06:45 09/01/17 06:45 Labs: Laboratory Results WBC 7.0 k/uL (3.8-10.6) 09/01/17 06:45 RBC 3.52 m/uL (4.30-5.90) L 09/01/17 06:45 Hgb 11.2 gm/dL (13.0-17.5) L 09/01/17 06:45 Hct 34.0 % (39.0-53.0) L 09/01/17 06:45 MCV 96.5 fL (80.0-100.0) 09/01/17 06:45 MCH 31.7 pg (25.0-35.0) 09/01/17 06:45 MCHC 32.8 g/dL (31.0-37.0) 09/01/17 06:45 RDW 15.1 % (11.5-15.5) 09/01/17 06:45 Plt Count 290 k/uL (150-450) 09/01/17 06:45 Neutrophils % 58 % 08/31/17 07:05 Neutrophils % (Manual) 58 % 09/01/17 06:45 Lymphocytes % 27 % 08/31/17 07:05 Lymphocytes % (Manual) 32 % 09/01/17 06:45 Monocytes % 8 % 08/31/17 07:05 Monocytes % (Manual) 5 % 09/01/17 06:45 Eosinophils % 2 % 08/31/17 07:05 Eosinophils % (Manual) 4 % 09/01/17 06:45 Basophils % 1 % 08/31/17 07:05 Myelocytes % 1 % 09/01/17 06:45 Neutrophils # 3.4 k/uL (1.3-7.7) 08/31/17 07:05 Neutrophils # (Manual) 4.06 k/uL (1.3-7.7) 09/01/17 06:45 Lymphocytes # 1.6 k/uL (1.0-4.8) 08/31/17 07:05 Lymphocytes # (Manual) 2.24 k/uL (1.0-4.8) 09/01/17 06:45 Monocytes # 0.5 k/uL (0-1.0) 08/31/17 07:05 Monocytes # (Manual) 0.35 k/uL (0-1.0) 09/01/17 06:45 Eosinophils # 0.1 k/uL (0-0.7) 08/31/17 07:05 Eosinophils # (Manual) 0.28 k/uL (0-0.7) 09/01/17 06:45 Basophils # 0.0 k/uL (0-0.2) 08/31/17 07:05 Myelocytes # (Manual) 0.07 k/uL (0) H 09/01/17 06:45 Nucleated RBCs 0 /100 WBC (0-0) 09/01/17 06:45 Polychromasia Present 09/01/17 06:45 Sodium 143 mmol/L (137-145) 09/01/17 06:45 Potassium 4.4 mmol/L (3.5-5.1) 09/01/17 06:45 Chloride 103 mmol/L (98-107) 09/01/17 06:45 Carbon Dioxide 29 mmol/L (22-30) 09/01/17 06:45 Anion Gap 11 mmol/L 09/01/17 06:45 BUN 16 mg/dL (9-20) 09/01/17 06:45 Creatinine 0.85 mg/dL (0.66-1.25) 09/01/17 06:45 Est GFR (CKD-EPI)AfAm >90 (>60 ml/min/1.73 sqM) 09/01/17 06:45 Est GFR (CKD-EPI)NonAf >90 (>60 ml/min/1.73 sqM) 09/01/17 06:45 Glucose 86 mg/dL (74-99) 09/01/17 06:45 Calcium 9.2 mg/dL (8.4-10.2) 09/01/17 06:45 Assessment and Plan (1) HIV encephalopathy Current Visit: No Status: Acute Code(s): B20 - HUMAN IMMUNODEFICIENCY VIRUS [HIV] DISEASE; G93.40 - ENCEPHALOPATHY, UNSPECIFIED SNOMED Code(s): 530354282 Plan: Patient is sitting up eating his lunch in no distress. Is able to stand briefly to utilize the commode. Does have intermittent difficulties with urinary incontinence. Is related that the social situation has been his biggest issue. Apparently his mother does not believe she can care for him brought him back to Hospital and since she's moving away in 2 weeks and he'll be on his own. Social work is now in the midst of determining best possible plan. The patient to remain on his Sribild as before in hopes that this will allow some improvement of his HIV encephalopathy. As noted during his most recent stay there was no evidence of LUBRICATING MACHINE TENDER syphilis and he was negative for ROEL Polyomavirus, making PML unlikely. For now continue the antiretrovirals and supportive care and placement will be attempted. On 08/21/2017 the patient is showing some improvement already since being admitted. The social work department is working diligently on trying to devise a acceptable discharge plan. The patient's HIV medications should be covered by [facility]AP and this may assist his placement in rehab or AFC. 08/24/2017 patient is having some improvement since admission. An ongoing discharge planning is in process. Either rehab or AFC is being requested. For the DVT been placed on Eliquis. Further physical therapy intervention is being requested which may further help with placement. Continue Stribild as before 08/26/2017 patient is stable no complaints of new pain or discomfort of the lower extremities. No difficulties with Eliquis for the DVT, continue the Stribild as before for treatment of his HIV and AIDS. Placement remains the single with difficult aspect of his overall care. 08/28/2017 patient remained stable and tolerating Stribild for his HIV treatment. Eliquis is also being tolerated for his DVT. It is related to the social work program that he likely will be able to be transferred to an adult foster nursing home in the near future. We'll be happy to follow in the office for his ongoing treatment of his HIV 08/29/2017 patient is showing some further improvement. Strength appears to be improving. As she receives treatment for his HIV infection the encephalopathy and neuropathy seems to be showing some improvement already. Continue with the Stribild. Working with the social staff worker and discharge planners try to access if the [facility] program will cover his medications while he is in extended care or in AFC. 08/30/2017 place remains the biggest issue. No working with senior living to see if he cannot be placed in a senior living. Grandmother is working with social work. Also working with the [facility] to ensure he'll receive his medications at discharge. Follow up office in a month for follow-up blood work and evaluation. 09/04/2017 placement remains an ongoing barrier. Social work is working with every potential option including 24-hour care being set up in a home setting. If this is not possible then would consider Placement in our rehab facility. 09/05/2017 placement remains a significant difficulty at this time and social work continues to look through many options including potential for 24-hour in- home care. Continues to look at the possibility of placement in our rehab facility. Continue current antiretroviral therapy and will need to recheck his CD4 count and viral load in the next week or so 09/06/2017 little change of status last few days but is improved from admit last time. Placement remains a significant barrier. Will check response to anti retroviral therapy next week. 09/09/2017 continues to have significant barriers to discharge,we'll check his response to antiretroviral therapy.
[2017-09-10] MEDS: ACETAMINOPHEN TAB 325 MG TAB PO PRN ×2 (03:17→20:11)
[2017-09-10] MEDS: Elviteg/Cobi/Emtric/Tenofo Dis [Stribild Tablet] 1 TAB PO SCH (07:22)
[2017-09-10] MEDS: GABAPENTIN 300 MG CAP PO SCH ×3 (07:22→21:52)
[2017-09-10] MEDS: APIXABAN 5 MG TAB PO SCH ×2 (07:22→20:11)
--- NOTE | 2017-09-10 15:31 | P.PN ---
Subjective Progress Note Date: 09/10/17 Progress note being dictated for Lower extremity DVT Interval history: This is a pleasant 27 years old male with past medical history of HIV, no entrance to treatment, he was recently hospitalized for lower extremity weakness, HIV encephalopathy possible and neuropathy, he had extensive workup at that time and his been evaluated by neurologist and ID team. patient was discharge to home in the care of his mother while his grandmother was signed as his guardian. He brought in to the emergency room last night because his mother she could not take care of him anymore related to his lower extremity weakness, however patient denies to me any other further complaints. No chest pain, dyspnea, fever, change in urine or bowel habits 08/21/2017 Patient at bedside says his weakness in the lower extremity are improving today. His guardian and guarded mother is at bedside, discussed the case with her and she states that for 3 days after his discharge last time he wasn't getting his HIV medication for no specific reason, and he lost his improvement last time he was in the hospital while he is off his medication. Weakness is improved after restarted medication as per patient On 08/23/2017 Patient failed last night and hit his head, no arthritis, no wounds, patient had some headache with now resolved. Continue with neuro check Neurology saw the patient's and recommended Neurontin and physical therapy and Doppler of lower ext, pt states to me he has pain in his both legs only when uses them and that is been going on for about 2 weeks since he is been discharged last time , his pain is the same and not progressive, while lying in bed he has no pain Patient still pending a placement 08/24/2017 Patient is still complaining of leg pain and PT OT is following. Patient is being continued on anticoagulation. Patient is pending placement at this time. No complaints of chest pain or shortness of breath. No nausea vomiting or abdominal pain. No other acute overnight issues. 08/25/2017 Patient says that his pain is better today. Able to sit in the chair. Otherwise participating in physical therapy and able to walk with a walker. Possible transfer to rehab on Saturday. All other review of systems negative except the above Current medications reviewed 08/26/2017 no overnight events. Generalized weakness persists. Good diet intake. Complains of frontal headache.CT of head performed reporting no acute intracranial process; ventricles, basal cisterns and sulci-moderate enlargement unchanged from prior exam. Denies chest pain, palpitations or increasing shortness of breath. Denies abdominal pain, nausea vomiting. Discharge planning in progress for subacute rehab, placement pending as per social work. 08/27/2017 maintained on Eliquis for DVT. Continues on Stribild for HIV/AIDS as per ID. Good diet intake. no overnight events. 08/28/2017 no overnight events. Good diet intake, no nausea, vomiting or diarrhea. Denies chest pain, palpitations or increased shortness of breath.Generalized weakness persists. 08/29/2017 no overnight events. Ambulating with walker. Devin [facility] scheduled to evaluate patient for potential placement. Denies chest pain, palpitations or shortness of breath. 08/30/2017 good diet intake, no nausea vomiting or diarrhea. Ambulating with walker. Afebrile, normal WBC.VSS. Denies chest pain, palpitations or shortness of breath. [facility] interview scheduled for today. 09/04/2017 ambulating in hallway with walker, tolerated exertion well. Good diet intake, no nausea vomiting or diarrhea. Denies chest pain, palpitations or shortness of breath. Afebrile. Discharge planning in progress, social work and grandmother currently working with [facility]. 09/05/17 no overnight events. Good diet intake, no nausea vomiting or diarrhea. Ambulating with walker, tolerating exertion well. Afebrile. Awaiting placement. 09/06/2017 continues to do well, denies chest pain, palpitations or increased shortness of breath. Good diet intake, no nausea, vomiting. Ambulating with walker. 09/09/2017 no overnight events. 09/10/2017 no overnight events. VSS. Positive diet intake, no nausea vomiting or diarrhea. Ambulating, tolerating exertion well. Denies chest pain, palpitations or shortness of breath. Denies pain. Placement pending. Objective - Vital Signs Vital signs: Vital Signs Temp 98.4 F 09/10/17 07:30 Pulse 86 09/10/17 07:48 Resp 16 09/10/17 07:48 BP 122/73 09/10/17 07:30 Pulse Ox 97 09/10/17 07:30 Intake & Output 09/09/17 09/10/17 09/10/17 18:59 06:59 18:59 Intake Total 1000 1500 360 Output Total 250 0 0 Balance 750 1500 360 Intake: Oral 1000 1500 360 Output: Urine 250 Stool 0 0 0 Other: Voiding Method Toilet Toilet Toilet Urinal Urinal # Voids 1 2 2 # Bowel Movements 1 - Exam Patient is sitting up in bed, no acute distress,Patient HEENT: Normocephalic. Neck is supple. Pupils reactive. Oral mucosa moist. Neck supple, no JVD, CHEST EXAMINATION: Lungs clear to auscultation and percussion. No rhonchi, crackles or wheezes. CARDIAC: Normal S1, S2 with no gallops. No murmurs, rubs or gallops ABDOMEN: Soft. Bowel sounds normal. No organomegaly. Extremities: reveal no edema. No clubbing or cyanosis Neurologically awake, alert, oriented x3 with well-coordinated movements. No focal deficits noted Musculoskeletal: Normal range of motion. Generalized weakness. - Labs CBC & Chem 7: 09/01/17 06:45 09/01/17 06:45 Assessment and Plan Assessment: 1. severe HIV peripheral neuropathy 2. Bilateral lower extremity weakness, mostly secondary to the above 3. HIV encephalopathy history 4. Anemia of chronic disease and 5. Acute right lower extremity DVT , on Eliquis. Plan: Continue on current medication regime , Eliquis, monitoring and symptomatic treatment. PT/OT. Increase ambulation. Discharge planning in progress pending placement. The impression and plan of care has been dictated as directed. : I performed a history and examination of this patient, discussed the same with the dictator. I agree with the dictator's note ,documented as a scribe. Any additional findings or plans will be noted.
--- NOTE | 2017-09-10 18:53 | P.PN ---
Subjective Progress Note Date: 09/10/17 his is a 27-year-old Afro-[place] male who had a recent hospitalization on at which time he presented with bilateral lower extremity weakness and broad-based gait. Been progressively getting worse for 2 months. Patient had a history of HIV diagnosed in 2008 but did not seek treatment. He had an extensive workup during his hospitalization including CAT scan, lumbar puncture , MRI of the brain and lumbar spine. He was seen by ID services as well as neurology and psychiatry. He was diagnosed with HIV with HIV encephalopathy and during his stay he was started on Stribild. His grandmother obtained guardianship but was resistant to discharge planning for AFC or senior living. Extended care facilities would not accept the patient due to cost of HIV medication. Patient was discharged home living with his mother and has now returned to [facility] emergency center with same complaints of lower extremity pain and weakness but mother did relate to the ER physician that they have to move out of their house in 2 weeks and she is not able to take care of him and he needs long-term facility. Case management is following as well as social work will be following the patient. Patient may need a new guardian in place to better address patient's needs. Patient continues to complain of the pain in his lower legs and difficulty walking. He states his appetite is okay. He denies having any fever or chills. He denies any shortness of breath or chest pain. He is concerned for initiating urinary flow. He denies any pain with urination. On 08/21/2017 the patient is feeling better. He believes that his mentation is clear. He was up with a walker into the hallway, and is admitted to the restroom also. Does have some difficulties with urinary incontinence. Appetite is good and he is eating well. 08/24/2017 patient continues to have some improvement but is had some swelling to his lower extremities and a follow-up ultrasound of the right leg no shows evidence of a deep venous thrombosis that and I was not present on 08/06/2017. Patient does not have any other new complaints. Discharge plan remains the greatest difficulty at this time. 08/26/2017 finds the patient to be some further improvement. With physical therapy he got up with a walker and got to the hallway again. Tolerating his HIV medications without difficulty. He is eating well and denies other acute new troubles. Remains completely fixated on his urination 08/28/2017 patient seems to be doing slightly better. He is up with a walker and is able to get into the hallway. No further difficulties with his nutrition. Remains fixated on his urination. 08/29/2017 patient seems to be further improved today. He is eating well. He is up with a walker without significant difficulty. Less fixated and his urination today. Grandmother is present we continue to work with the local resources to see what the options are. 08/30/2017 patient has some further improvement. Continues to have a very significant appetite eating everything that is brought to him. He is up walking in the hallway with the walker. Is voicing no new complaints. Less fixated on his urinary system 09/04/2017 the patient is stable and is able to eat well. The patient is up and walking in the hallway with a walker. He continues to have inappropriate behavior. He is however comfortable 09/05/2017 patient is up in a bleeding a bit better than he was even a few days ago. He seems less fixated on his urination today. Nursing staff is not relating to some inappropriate behavior of the last few days. He knows his grandmother Abhinav is trying to work on a place for him to go. 09/06/2017 still in need of placement but is feeling OK. 09/10/2007. Await further input as far as placement 09/10/2017 it appears that the patient is being approved for Social Security which may now allow placement AFC the near future Objective - Vital Signs Vital signs: Vital Signs Temp 98.4 F 09/10/17 07:30 Pulse 86 09/10/17 15:41 Resp 16 09/10/17 15:41 BP 122/73 09/10/17 07:30 Pulse Ox 97 09/10/17 07:30 Intake & Output 09/09/17 09/10/17 09/10/17 18:59 06:59 18:59 Intake Total 1000 1500 360 Output Total 250 0 250 Balance 750 1500 110 Intake: Oral 1000 1500 360 Output: Urine 250 250 Stool 0 0 0 Other: Voiding Method Toilet Toilet Toilet Urinal Urinal # Voids 1 2 2 # Bowel Movements 1 - Exam Gen: This is a 27-year-old -[place] male. He is sitting in a chair at the bedside and appears to be comfortable and in no acute distress. HEENT: Head is atraumatic, normocephalic. Pupils equal, round. Sclerae is anicteric. Conjunctiva pink. Mucous members of the mouth are moist. No thrush noted. NECK: Supple. No JVD. No lymphadenopathy. No thyromegaly. LUNGS: Clear to auscultation. Scattered and expiratory wheeze. No intercostal retractions. HEART: Regular rate and rhythm. No murmur. ABDOMEN: Soft. Bowel sounds are present. No masses. No tenderness. EXTREMITIES: There is bilateral lower extremity edema left slightly greater than the right. No calf tenderness.patient complains of generalized pain with minimal movement of his legs. NEUROLOGICAL: Patient is awake, alert and is able to answer most questions appropriately. The patient is able to stand at the bedside without difficulty. - Labs CBC & Chem 7: 09/01/17 06:45 09/01/17 06:45 Labs: Laboratory Results WBC 7.0 k/uL (3.8-10.6) 09/01/17 06:45 RBC 3.52 m/uL (4.30-5.90) L 09/01/17 06:45 Hgb 11.2 gm/dL (13.0-17.5) L 09/01/17 06:45 Hct 34.0 % (39.0-53.0) L 09/01/17 06:45 MCV 96.5 fL (80.0-100.0) 09/01/17 06:45 MCH 31.7 pg (25.0-35.0) 09/01/17 06:45 MCHC 32.8 g/dL (31.0-37.0) 09/01/17 06:45 RDW 15.1 % (11.5-15.5) 09/01/17 06:45 Plt Count 290 k/uL (150-450) 09/01/17 06:45 Neutrophils % 58 % 08/31/17 07:05 Neutrophils % (Manual) 58 % 09/01/17 06:45 Lymphocytes % 27 % 08/31/17 07:05 Lymphocytes % (Manual) 32 % 09/01/17 06:45 Monocytes % 8 % 08/31/17 07:05 Monocytes % (Manual) 5 % 09/01/17 06:45 Eosinophils % 2 % 08/31/17 07:05 Eosinophils % (Manual) 4 % 09/01/17 06:45 Basophils % 1 % 08/31/17 07:05 Myelocytes % 1 % 09/01/17 06:45 Neutrophils # 3.4 k/uL (1.3-7.7) 08/31/17 07:05 Neutrophils # (Manual) 4.06 k/uL (1.3-7.7) 09/01/17 06:45 Lymphocytes # 1.6 k/uL (1.0-4.8) 08/31/17 07:05 Lymphocytes # (Manual) 2.24 k/uL (1.0-4.8) 09/01/17 06:45 Monocytes # 0.5 k/uL (0-1.0) 08/31/17 07:05 Monocytes # (Manual) 0.35 k/uL (0-1.0) 09/01/17 06:45 Eosinophils # 0.1 k/uL (0-0.7) 08/31/17 07:05 Eosinophils # (Manual) 0.28 k/uL (0-0.7) 09/01/17 06:45 Basophils # 0.0 k/uL (0-0.2) 08/31/17 07:05 Myelocytes # (Manual) 0.07 k/uL (0) H 09/01/17 06:45 Nucleated RBCs 0 /100 WBC (0-0) 09/01/17 06:45 Polychromasia Present 09/01/17 06:45 Sodium 143 mmol/L (137-145) 09/01/17 06:45 Potassium 4.4 mmol/L (3.5-5.1) 09/01/17 06:45 Chloride 103 mmol/L (98-107) 09/01/17 06:45 Carbon Dioxide 29 mmol/L (22-30) 09/01/17 06:45 Anion Gap 11 mmol/L 09/01/17 06:45 BUN 16 mg/dL (9-20) 09/01/17 06:45 Creatinine 0.85 mg/dL (0.66-1.25) 09/01/17 06:45 Est GFR (CKD-EPI)AfAm >90 (>60 ml/min/1.73 sqM) 09/01/17 06:45 Est GFR (CKD-EPI)NonAf >90 (>60 ml/min/1.73 sqM) 09/01/17 06:45 Glucose 86 mg/dL (74-99) 09/01/17 06:45 Calcium 9.2 mg/dL (8.4-10.2) 09/01/17 06:45 Assessment and Plan (1) HIV encephalopathy Current Visit: No Status: Acute Code(s): B20 - HUMAN IMMUNODEFICIENCY VIRUS [HIV] DISEASE; G93.40 - ENCEPHALOPATHY, UNSPECIFIED SNOMED Code(s): 774360566 Plan: Patient is sitting up eating his lunch in no distress. Is able to stand briefly to utilize the commode. Does have intermittent difficulties with urinary incontinence. Is related that the social situation has been his biggest issue. Apparently his mother does not believe she can care for him brought him back to Hospital and since she's moving away in 2 weeks and he'll be on his own. Social work is now in the midst of determining best possible plan. The patient to remain on his Sribild as before in hopes that this will allow some improvement of his HIV encephalopathy. As noted during his most recent stay there was no evidence of RADIOLOGIC TECHNOLOGY PROGRAM DIRECTOR syphilis and he was negative for ROEL Polyomavirus, making PML unlikely. For now continue the antiretrovirals and supportive care and placement will be attempted. On 08/21/2017 the patient is showing some improvement already since being admitted. The social work department is working diligently on trying to devise a acceptable discharge plan. The patient's HIV medications should be covered by ADAP and this may assist his placement in rehab or AFC. 08/24/2017 patient is having some improvement since admission. An ongoing discharge planning is in process. Either rehab or AFC is being requested. For the DVT been placed on Eliquis. Further physical therapy intervention is being requested which may further help with placement. Continue Stribild as before 08/26/2017 patient is stable no complaints of new pain or discomfort of the lower extremities. No difficulties with Eliquis for the DVT, continue the Stribild as before for treatment of his HIV and AIDS. Placement remains the single with difficult aspect of his overall care. 08/28/2017 patient remained stable and tolerating Stribild for his HIV treatment. Eliquis is also being tolerated for his DVT. It is related to the social work program that he likely will be able to be transferred to an adult foster fpc in the near future. We'll be happy to follow in the office for his ongoing treatment of his HIV 08/29/2017 patient is showing some further improvement. Strength appears to be improving. As she receives treatment for his HIV infection the encephalopathy and neuropathy seems to be showing some improvement already. Continue with the Stribild. Working with the social insurance analyst and discharge planners try to access if the ADAP program will cover his medications while he is in extended care or in AFC. 08/30/2017 place remains the biggest issue. No working with senior living to see if he cannot be placed in a senior living. Grandmother is working with social work. Also working with the ADAP to ensure he'll receive his medications at discharge. Follow up office in a month for follow-up blood work and evaluation. 09/04/2017 placement remains an ongoing barrier. Social work is working with every potential option including 24-hour care being set up in a home setting. If this is not possible then would consider Placement in our rehab facility. 09/05/2017 placement remains a significant difficulty at this time and social work continues to look through many options including potential for 24-hour in- home care. Continues to look at the possibility of placement in our rehab facility. Continue current antiretroviral therapy and will need to recheck his CD4 count and viral load in the next week or so 09/06/2017 little change of status last few days but is improved from admit last time. Placement remains a significant barrier. Will check response to anti retroviral therapy next week. 09/09/2017 continues to have significant barriers to discharge,we'll check his response to antiretroviral therapy. 09/10/2017 the patient continues to feel somewhat better. He was able to navigate the bathroom without the walker but uses a walker in the hallway. Strength seems to be improving. Mentation seems to be improving a bit also. Follow-up HIV viral load and CD4 been requested to monitor his response to his antiretroviral therapy. Hopefully will have placement in [facility] home very soon.
[2017-09-11] MEDS: Elviteg/Cobi/Emtric/Tenofo Dis [Stribild Tablet] 1 TAB PO SCH (07:28)
[2017-09-11] MEDS: ACETAMINOPHEN TAB 325 MG TAB PO PRN ×3 (07:28→22:08)
[2017-09-11] MEDS: GABAPENTIN 300 MG CAP PO SCH ×3 (07:28→22:08)
[2017-09-11] MEDS: APIXABAN 5 MG TAB PO SCH ×2 (07:28→22:08)
[2017-09-11 11:28] LABS: T4/T8 Ratio (CD4:CD8) 0.3 (1.0-3.7)
--- NOTE | 2017-09-11 14:54 | P.PN ---
Subjective Progress Note Date: 09/11/17 Progress note being dictated for Lower extremity DVT Interval history: This is a pleasant 27 years old male with past medical history of HIV, no entrance to treatment, he was recently hospitalized for lower extremity weakness, HIV encephalopathy possible and neuropathy, he had extensive workup at that time and his been evaluated by neurologist and ID team. patient was discharge to home in the care of his mother while his grandmother was signed as his guardian. He brought in to the emergency room last night because his mother she could not take care of him anymore related to his lower extremity weakness, however patient denies to me any other further complaints. No chest pain, dyspnea, fever, change in urine or bowel habits 08/21/2017 Patient at bedside says his weakness in the lower extremity are improving today. His guardian and guarded mother is at bedside, discussed the case with her and she states that for 3 days after his discharge last time he wasn't getting his HIV medication for no specific reason, and he lost his improvement last time he was in the hospital while he is off his medication. Weakness is improved after restarted medication as per patient On 08/23/2017 Patient failed last night and hit his head, no arthritis, no wounds, patient had some headache with now resolved. Continue with neuro check Neurology saw the patient's and recommended Neurontin and physical therapy and Doppler of lower ext, pt states to me he has pain in his both legs only when uses them and that is been going on for about 2 weeks since he is been discharged last time , his pain is the same and not progressive, while lying in bed he has no pain Patient still pending a placement 08/24/2017 Patient is still complaining of leg pain and PT OT is following. Patient is being continued on anticoagulation. Patient is pending placement at this time. No complaints of chest pain or shortness of breath. No nausea vomiting or abdominal pain. No other acute overnight issues. 08/25/2017 Patient says that his pain is better today. Able to sit in the chair. Otherwise participating in physical therapy and able to walk with a walker. Possible transfer to rehab on Saturday. All other review of systems negative except the above Current medications reviewed 08/26/2017 no overnight events. Generalized weakness persists. Good diet intake. Complains of frontal headache.CT of head performed reporting no acute intracranial process; ventricles, basal cisterns and sulci-moderate enlargement unchanged from prior exam. Denies chest pain, palpitations or increasing shortness of breath. Denies abdominal pain, nausea vomiting. Discharge planning in progress for subacute rehab, placement pending as per social work. 08/27/2017 maintained on Eliquis for DVT. Continues on Stribild for HIV/AIDS as per ID. Good diet intake. no overnight events. 08/28/2017 no overnight events. Good diet intake, no nausea, vomiting or diarrhea. Denies chest pain, palpitations or increased shortness of breath.Generalized weakness persists. 08/29/2017 no overnight events. Ambulating with walker. [facility] scheduled to evaluate patient for potential placement. Denies chest pain, palpitations or shortness of breath. 08/30/2017 good diet intake, no nausea vomiting or diarrhea. Ambulating with walker. Afebrile, normal WBC.VSS. Denies chest pain, palpitations or shortness of breath. AF interview scheduled for today. 09/04/2017 ambulating in hallway with walker, tolerated exertion well. Good diet intake, no nausea vomiting or diarrhea. Denies chest pain, palpitations or shortness of breath. Afebrile. Discharge planning in progress, social work and grandmother currently working with [facility]. 09/05/17 no overnight events. Good diet intake, no nausea vomiting or diarrhea. Ambulating with walker, tolerating exertion well. Afebrile. Awaiting placement. 09/06/2017 continues to do well, denies chest pain, palpitations or increased shortness of breath. Good diet intake, no nausea, vomiting. Ambulating with walker. 09/09/2017 no overnight events. 09/10/2017 no overnight events. VSS. Positive diet intake, no nausea vomiting or diarrhea. Ambulating, tolerating exertion well. Denies chest pain, palpitations or shortness of breath. Denies pain. Placement pending. 09/11/17 no overnight events. Follow up CD4 sinus HIV viral load in progress. Objective - Vital Signs Vital signs: Vital Signs Temp 97.3 F L 09/11/17 05:00 Pulse 88 09/11/17 05:00 Resp 17 09/11/17 05:00 BP 106/57 09/11/17 05:00 Pulse Ox 99 09/11/17 05:00 Intake & Output 09/10/17 09/11/17 09/11/17 18:59 06:59 18:59 Intake Total 360 2080 1400 Output Total 250 2100 Balance 110 -20 1400 Intake: Oral 360 0 1400 Output: Urine 250 2100 Stool 0 0 Other: Voiding Method Toilet Toilet Toilet Urinal Urinal Urinal # Voids 2 3 3 - Exam Patient is sitting up in bed, no acute distress,Patient HEENT: Normocephalic. Neck is supple. Pupils reactive. Oral mucosa moist. Neck supple, no JVD, CHEST EXAMINATION: Lungs clear to auscultation and percussion. No rhonchi, crackles or wheezes. CARDIAC: Normal S1, S2 with no gallops. No murmurs, rubs or gallops ABDOMEN: Soft. Bowel sounds normal. No organomegaly. Extremities: Bilateral lower extremity edema without tenderness. Neurologically awake, alert, oriented x3 with well-coordinated movements. No focal deficits noted Musculoskeletal: Normal range of motion. Generalized weakness. - Labs CBC & Chem 7: 09/01/17 06:45 09/01/17 06:45 Labs: Abnormal Lab Results - Last 24 Hours (Table) 09/10/17 Range/Units 06:53 T-Suppressor Cells 1414 H (190-832) cell/ul % CD4 [place] 19 L (35-66) % Absolute CD4 [place] 428 L (443-1471) cell/ul CD4/CD8 Ratio 0.3 L (1.0-3.7) % CD8 Suppressor 64 H (9-37) % Assessment and Plan Assessment: 1. severe HIV peripheral neuropathy 2. Bilateral lower extremity weakness, mostly secondary to the above 3. HIV encephalopathy history 4. Anemia of chronic disease and 5. Acute right lower extremity DVT , on Eliquis. Plan: Continue on current medication regime , Eliquis, monitoring and symptomatic treatment. HIV med regime as per infectious disease. PT/OT. Social work assisting with Discharge planning/ placement. Discharge pending placement. The impression and plan of care has been dictated as directed. : I performed a history and examination of this patient, discussed the same with the dictator. I agree with the dictator's note ,documented as a scribe. Any additional findings or plans will be noted.
[2017-09-11 17:08] LABS: HIV-1 RNA DETECTED (Not detected)
--- NOTE | 2017-09-11 22:37 | P.PN ---
Subjective Progress Note Date: 09/11/17 This is a 27-year-old Afro-[place] male who had a recent hospitalization on at which time he presented with bilateral lower extremity weakness and broad-based gait. Been progressively getting worse for 2 months. Patient had a history of HIV diagnosed in 2008 but did not seek treatment. He had an extensive workup during his hospitalization including CAT scan, lumbar puncture , MRI of the brain and lumbar spine. He was seen by ID services as well as neurology and psychiatry. He was diagnosed with HIV with HIV encephalopathy and during his stay he was started on Stribild. His grandmother obtained guardianship but was resistant to discharge planning for [facility] or skilled nursing. Extended care facilities would not accept the patient due to cost of HIV medication. Patient was discharged home living with his mother and has now returned to [facility] emergency center with same complaints of lower extremity pain and weakness but mother did relate to the ER physician that they have to move out of their house in 2 weeks and she is not able to take care of him and he needs long-term facility. Case management is following as well as social work will be following the patient. Patient may need a new guardian in place to better address patient's needs. Patient continues to complain of the pain in his lower legs and difficulty walking. He states his appetite is okay. He denies having any fever or chills. He denies any shortness of breath or chest pain. He is concerned for initiating urinary flow. He denies any pain with urination. On 08/21/2017 the patient is feeling better. He believes that his mentation is clear. He was up with a walker into the hallway, and is admitted to the restroom also. Does have some difficulties with urinary incontinence. Appetite is good and he is eating well. 08/24/2017 patient continues to have some improvement but is had some swelling to his lower extremities and a follow-up ultrasound of the right leg no shows evidence of a deep venous thrombosis that and I was not present on 08/06/2017. Patient does not have any other new complaints. Discharge plan remains the greatest difficulty at this time. 08/26/2017 finds the patient to be some further improvement. With physical therapy he got up with a walker and got to the hallway again. Tolerating his HIV medications without difficulty. He is eating well and denies other acute new troubles. Remains completely fixated on his urination 08/28/2017 patient seems to be doing slightly better. He is up with a walker and is able to get into the hallway. No further difficulties with his nutrition. Remains fixated on his urination. 08/29/2017 patient seems to be further improved today. He is eating well. He is up with a walker without significant difficulty. Less fixated and his urination today. Grandmother is present we continue to work with the local resources to see what the options are. 08/30/2017 patient has some further improvement. Continues to have a very significant appetite eating everything that is brought to him. He is up walking in the hallway with the walker. Is voicing no new complaints. Less fixated on his urinary system 09/04/2017 the patient is stable and is able to eat well. The patient is up and walking in the hallway with a walker. He continues to have inappropriate behavior. He is however comfortable 09/05/2017 patient is up in a bleeding a bit better than he was even a few days ago. He seems less fixated on his urination today. Nursing staff is not relating to some inappropriate behavior of the last few days. He knows his grandmother Abhinav is trying to work on a place for him to go. 09/06/2017 still in need of placement but is feeling OK. 09/10/2007. Await further input as far as placement 09/10/2017 it appears that the patient is being approved for Social Security which may now allow placement AFC the near future 09/11/2017 patient is feeling well today. Continues to await placement Objective - Vital Signs Vital signs: Vital Signs Temp 98.1 F 09/11/17 15:33 Pulse 80 09/11/17 15:33 Resp 16 09/11/17 15:33 BP 123/71 09/11/17 15:33 Pulse Ox 99 09/11/17 15:33 Intake & Output 09/11/17 09/11/17 09/12/17 06:59 18:59 06:59 Intake Total 2079 1400 Output Total 2100 Balance -20 1400 Intake: Oral 2079 1400 Output: Urine 2100 Stool 0 Other: Voiding Method Toilet Toilet Urinal Urinal # Voids 3 3 - Exam Gen: This is a 27-year-old -[place] male. He is sitting in a chair at the bedside and appears to be comfortable and in no acute distress. HEENT: Head is atraumatic, normocephalic. Pupils equal, round. Sclerae is anicteric. Conjunctiva pink. Mucous members of the mouth are moist. No thrush noted. NECK: Supple. No JVD. No lymphadenopathy. No thyromegaly. LUNGS: Clear to auscultation. Scattered and expiratory wheeze. No intercostal retractions. HEART: Regular rate and rhythm. No murmur. ABDOMEN: Soft. Bowel sounds are present. No masses. No tenderness. EXTREMITIES: There is bilateral lower extremity edema left slightly greater than the right. No calf tenderness.patient complains of generalized pain with minimal movement of his legs. NEUROLOGICAL: Patient is awake, alert and is able to answer most questions appropriately. The patient is able to stand at the bedside without difficulty. - Labs CBC & Chem 7: 09/01/17 06:45 09/01/17 06:45 Labs: Abnormal Lab Results - Last 24 Hours (Table) 09/10/17 09/10/17 Range/Units 06:53 06:53 T-Suppressor Cells 1414 H (190-832) cell/ul % CD4 Fellows 19 L (35-66) % Absolute CD4 Fellows 428 L (443-1471) cell/ul CD4/CD8 Ratio 0.3 L (1.0-3.7) % CD8 Suppressor 64 H (9-37) % HIV-1 RNA Quant 4,555 H (<40) Copies/mL HIV RNA logcopies/mL Ult 3.66 H (<1.60) HIV-1 RNA (PCR) DETECTED H (Not detected) Laboratory Results WBC 7.0 k/uL (3.8-10.6) 09/01/17 06:45 RBC 3.52 m/uL (4.30-5.90) L 09/01/17 06:45 Hgb 11.2 gm/dL (13.0-17.5) L 09/01/17 06:45 Hct 34.0 % (39.0-53.0) L 09/01/17 06:45 MCV 96.5 fL (80.0-100.0) 09/01/17 06:45 MCH 31.7 pg (25.0-35.0) 09/01/17 06:45 MCHC 32.8 g/dL (31.0-37.0) 09/01/17 06:45 RDW 15.1 % (11.5-15.5) 09/01/17 06:45 Plt Count 290 k/uL (150-450) 09/01/17 06:45 Neutrophils % 58 % 08/31/17 07:05 Neutrophils % (Manual) 58 % 09/01/17 06:45 Lymphocytes % 27 % 08/31/17 07:05 Lymphocytes % (Manual) 32 % 09/01/17 06:45 Monocytes % 8 % 08/31/17 07:05 Monocytes % (Manual) 5 % 09/01/17 06:45 Eosinophils % 2 % 08/31/17 07:05 Eosinophils % (Manual) 4 % 09/01/17 06:45 Basophils % 1 % 08/31/17 07:05 Myelocytes % 1 % 09/01/17 06:45 Neutrophils # 3.4 k/uL (1.3-7.7) 08/31/17 07:05 Neutrophils # (Manual) 4.06 k/uL (1.3-7.7) 09/01/17 06:45 Lymphocytes # 1.6 k/uL (1.0-4.8) 08/31/17 07:05 Lymphocytes # (Manual) 2.24 k/uL (1.0-4.8) 09/01/17 06:45 Monocytes # 0.5 k/uL (0-1.0) 08/31/17 07:05 Monocytes # (Manual) 0.35 k/uL (0-1.0) 09/01/17 06:45 Eosinophils # 0.1 k/uL (0-0.7) 08/31/17 07:05 Eosinophils # (Manual) 0.28 k/uL (0-0.7) 09/01/17 06:45 Basophils # 0.0 k/uL (0-0.2) 08/31/17 07:05 Myelocytes # (Manual) 0.07 k/uL (0) H 09/01/17 06:45 Nucleated RBCs 0 /100 WBC (0-0) 09/01/17 06:45 Polychromasia Present 09/01/17 06:45 Sodium 143 mmol/L (137-145) 09/01/17 06:45 Potassium 4.4 mmol/L (3.5-5.1) 09/01/17 06:45 Chloride 103 mmol/L (98-107) 09/01/17 06:45 Carbon Dioxide 29 mmol/L (22-30) 09/01/17 06:45 Anion Gap 11 mmol/L 09/01/17 06:45 BUN 16 mg/dL (9-20) 09/01/17 06:45 Creatinine 0.85 mg/dL (0.66-1.25) 09/01/17 06:45 Est GFR (CKD-EPI)AfAm >90 (>60 ml/min/1.73 sqM) 09/01/17 06:45 Est GFR (CKD-EPI)NonAf >90 (>60 ml/min/1.73 sqM) 09/01/17 06:45 Glucose 86 mg/dL (74-99) 09/01/17 06:45 Calcium 9.2 mg/dL (8.4-10.2) 09/01/17 06:45 T-Suppressor Cells 1414 cell/ul (190-832) H 09/10/17 06:53 % CD4 Fellows 19 % (35-66) L 09/10/17 06:53 Absolute CD4 Fellows 428 cell/ul (443-1471) L 09/10/17 06:53 CD4/CD8 Ratio 0.3 (1.0-3.7) L 09/10/17 06:53 % CD8 Suppressor 64 % (9-37) H 09/10/17 06:53 HIV-1 RNA Quant 4,555 Copies/mL (<40) H 09/10/17 06:53 HIV RNA logcopies/mL Ult 3.66 (<1.60) H 09/10/17 06:53 HIV-1 RNA (PCR) DETECTED (Not detected) H 09/10/17 06:53 Assessment and Plan (1) HIV encephalopathy Current Visit: No Status: Acute Code(s): B20 - HUMAN IMMUNODEFICIENCY VIRUS [HIV] DISEASE; G93.40 - ENCEPHALOPATHY, UNSPECIFIED SNOMED Code(s): 833076813 Plan: Patient is sitting up eating his lunch in no distress. Is able to stand briefly to utilize the commode. Does have intermittent difficulties with urinary incontinence. Is related that the social situation has been his biggest issue. Apparently his mother does not believe she can care for him brought him back to Hospital and since she's moving away in 2 weeks and he'll be on his own. Social work is now in the midst of determining best possible plan. The patient to remain on his Sribild as before in hopes that this will allow some improvement of his HIV encephalopathy. As noted during his most recent stay there was no evidence of CLINICAL COURIER syphilis and he was negative for ROEL Polyomavirus, making PML unlikely. For now continue the antiretrovirals and supportive care and placement will be attempted. On 08/21/2017 the patient is showing some improvement already since being admitted. The social work department is working diligently on trying to devise a acceptable discharge plan. The patient's HIV medications should be covered by ADAP and this may assist his placement in rehab or AFC. 08/24/2017 patient is having some improvement since admission. An ongoing discharge planning is in process. Either rehab or AFC is being requested. For the DVT been placed on Eliquis. Further physical therapy intervention is being requested which may further help with placement. Continue Stribild as before 08/26/2017 patient is stable no complaints of new pain or discomfort of the lower extremities. No difficulties with Eliquis for the DVT, continue the Stribild as before for treatment of his HIV and AIDS. Placement remains the single with difficult aspect of his overall care. 08/28/2017 patient remained stable and tolerating Stribild for his HIV treatment. Eliquis is also being tolerated for his DVT. It is related to the social work program that he likely will be able to be transferred to an adult foster snf in the near future. We'll be happy to follow in the office for his ongoing treatment of his HIV 08/29/2017 patient is showing some further improvement. Strength appears to be improving. As she receives treatment for his HIV infection the encephalopathy and neuropathy seems to be showing some improvement already. Continue with the Stribild. Working with the social science teacher and discharge planners try to access if the ADAP program will cover his medications while he is in extended care or in AFC. 08/30/2017 place remains the biggest issue. No working with skilled nursing to see if he cannot be placed in a skilled nursing. Grandmother is working with social work. Also working with the ADAP to ensure he'll receive his medications at discharge. Follow up office in a month for follow-up blood work and evaluation. 09/04/2017 placement remains an ongoing barrier. Social work is working with every potential option including 24-hour care being set up in a home setting. If this is not possible then would consider Placement in our rehab facility. 09/05/2017 placement remains a significant difficulty at this time and social work continues to look through many options including potential for 24-hour in- home care. Continues to look at the possibility of placement in our rehab facility. Continue current antiretroviral therapy and will need to recheck his CD4 count and viral load in the next week or so 09/06/2017 little change of status last few days but is improved from admit last time. Placement remains a significant barrier. Will check response to anti retroviral therapy next week. 09/09/2017 continues to have significant barriers to discharge,we'll check his response to antiretroviral therapy. 09/10/2017 the patient continues to feel somewhat better. He was able to navigate the bathroom without the walker but uses a walker in the hallway. Strength seems to be improving. Mentation seems to be improving a bit also. Follow-up HIV viral load and CD4 been requested to monitor his response to his antiretroviral therapy. Hopefully will have placement in AFC home very soon. 09/11/2017 the patient is stable without new acute complaints. The CD4 count has increased no viral load is decreased to 4555 showing an excellent response to current antiretroviral therapy. This will continue. Hopefully as his HIV comes under control his encephalopathy and neuropathy will improve. There appears to be some hope that he will be place in AFC home in the near future.
[2017-09-12] MEDS: ACETAMINOPHEN TAB 325 MG TAB PO PRN ×3 (04:30→22:46)
[2017-09-12] MEDS: GABAPENTIN 300 MG CAP PO SCH ×3 (08:45→22:46)
[2017-09-12] MEDS: Elviteg/Cobi/Emtric/Tenofo Dis [Stribild Tablet] 1 TAB PO SCH (08:45)
[2017-09-12] MEDS: APIXABAN 5 MG TAB PO SCH ×2 (08:45→22:46)
--- NOTE | 2017-09-12 21:55 | P.PN ---
Subjective Progress Note Date: 09/12/17 This is a 27-year-old Afro-Lithuanian male who had a recent hospitalization on at which time he presented with bilateral lower extremity weakness and broad-based gait. Been progressively getting worse for 2 months. Patient had a history of HIV diagnosed in 2008 but did not seek treatment. He had an extensive workup during his hospitalization including CAT scan, lumbar puncture , MRI of the brain and lumbar spine. He was seen by ID services as well as neurology and psychiatry. He was diagnosed with HIV with HIV encephalopathy and during his stay he was started on Stribild. His grandmother obtained guardianship but was resistant to discharge planning for AFC or custodial. Extended care facilities would not accept the patient due to cost of HIV medication. Patient was discharged home living with his mother and has now returned to [facility] emergency center with same complaints of lower extremity pain and weakness but mother did relate to the ER physician that they have to move out of their house in 2 weeks and she is not able to take care of him and he needs long-term facility. Case management is following as well as social work will be following the patient. Patient may need a new guardian in place to better address patient's needs. Patient continues to complain of the pain in his lower legs and difficulty walking. He states his appetite is okay. He denies having any fever or chills. He denies any shortness of breath or chest pain. He is concerned for initiating urinary flow. He denies any pain with urination. On 08/21/2017 the patient is feeling better. He believes that his mentation is clear. He was up with a walker into the hallway, and is admitted to the restroom also. Does have some difficulties with urinary incontinence. Appetite is good and he is eating well. 08/24/2017 patient continues to have some improvement but is had some swelling to his lower extremities and a follow-up ultrasound of the right leg no shows evidence of a deep venous thrombosis that and I was not present on 08/06/2017. Patient does not have any other new complaints. Discharge plan remains the greatest difficulty at this time. 08/26/2017 finds the patient to be some further improvement. With physical therapy he got up with a walker and got to the hallway again. Tolerating his HIV medications without difficulty. He is eating well and denies other acute new troubles. Remains completely fixated on his urination 08/28/2017 patient seems to be doing slightly better. He is up with a walker and is able to get into the hallway. No further difficulties with his nutrition. Remains fixated on his urination. 08/29/2017 patient seems to be further improved today. He is eating well. He is up with a walker without significant difficulty. Less fixated and his urination today. Grandmother is present we continue to work with the local resources to see what the options are. 08/30/2017 patient has some further improvement. Continues to have a very significant appetite eating everything that is brought to him. He is up walking in the hallway with the walker. Is voicing no new complaints. Less fixated on his urinary system 09/04/2017 the patient is stable and is able to eat well. The patient is up and walking in the hallway with a walker. He continues to have inappropriate behavior. He is however comfortable 09/05/2017 patient is up in a bleeding a bit better than he was even a few days ago. He seems less fixated on his urination today. Nursing staff is not relating to some inappropriate behavior of the last few days. He knows his grandmother Abhinav is trying to work on a place for him to go. 09/06/2017 still in need of placement but is feeling OK. 09/10/2007. Await further input as far as placement 09/10/2017 it appears that the patient is being approved for Social Security which may now allow placement AFC the near future 09/11/2017 patient is feeling well today. Continues to await placement Objective - Vital Signs Vital signs: Vital Signs Temp 98 F 09/12/17 14:48 Pulse 88 09/12/17 14:48 Resp 16 09/12/17 14:48 BP 120/77 09/12/17 14:48 Pulse Ox 98 09/12/17 14:48 Intake & Output 09/12/17 09/12/17 09/13/17 06:59 18:59 06:59 Intake Total 2280 Output Total 1000 250 Balance 1280 -250 Weight 101.831 kg Intake: Oral 2280 Output: Urine 1000 250 Stool 0 Other: Voiding Method Toilet Toilet Urinal Urinal # Voids 3 1 - Exam Gen: This is a 27-year-old -Lithuanian male. He is sitting in a chair at the bedside and appears to be comfortable and in no acute distress. HEENT: Head is atraumatic, normocephalic. Pupils equal, round. Sclerae is anicteric. Conjunctiva pink. Mucous members of the mouth are moist. No thrush noted. NECK: Supple. No JVD. No lymphadenopathy. No thyromegaly. LUNGS: Clear to auscultation. Scattered and expiratory wheeze. No intercostal retractions. HEART: Regular rate and rhythm. No murmur. ABDOMEN: Soft. Bowel sounds are present. No masses. No tenderness. EXTREMITIES: There is bilateral lower extremity edema left slightly greater than the right. No calf tenderness.patient complains of generalized pain with minimal movement of his legs. NEUROLOGICAL: Patient is awake, alert and is able to answer most questions appropriately. The patient is able to stand at the bedside without difficulty. - Labs CBC & Chem 7: 09/01/17 06:45 09/01/17 06:45 Labs: Laboratory Results WBC 7.0 k/uL (3.8-10.6) 09/01/17 06:45 RBC 3.52 m/uL (4.30-5.90) L 09/01/17 06:45 Hgb 11.2 gm/dL (13.0-17.5) L 09/01/17 06:45 Hct 34.0 % (39.0-53.0) L 09/01/17 06:45 MCV 96.5 fL (80.0-100.0) 09/01/17 06:45 MCH 31.7 pg (25.0-35.0) 09/01/17 06:45 MCHC 32.8 g/dL (31.0-37.0) 09/01/17 06:45 RDW 15.1 % (11.5-15.5) 09/01/17 06:45 Plt Count 290 k/uL (150-450) 09/01/17 06:45 Neutrophils % 58 % 08/31/17 07:05 Neutrophils % (Manual) 58 % 09/01/17 06:45 Lymphocytes % 27 % 08/31/17 07:05 Lymphocytes % (Manual) 32 % 09/01/17 06:45 Monocytes % 8 % 08/31/17 07:05 Monocytes % (Manual) 5 % 09/01/17 06:45 Eosinophils % 2 % 08/31/17 07:05 Eosinophils % (Manual) 4 % 09/01/17 06:45 Basophils % 1 % 08/31/17 07:05 Myelocytes % 1 % 09/01/17 06:45 Neutrophils # 3.4 k/uL (1.3-7.7) 08/31/17 07:05 Neutrophils # (Manual) 4.06 k/uL (1.3-7.7) 09/01/17 06:45 Lymphocytes # 1.6 k/uL (1.0-4.8) 08/31/17 07:05 Lymphocytes # (Manual) 2.24 k/uL (1.0-4.8) 09/01/17 06:45 Monocytes # 0.5 k/uL (0-1.0) 08/31/17 07:05 Monocytes # (Manual) 0.35 k/uL (0-1.0) 09/01/17 06:45 Eosinophils # 0.1 k/uL (0-0.7) 08/31/17 07:05 Eosinophils # (Manual) 0.28 k/uL (0-0.7) 09/01/17 06:45 Basophils # 0.0 k/uL (0-0.2) 08/31/17 07:05 Myelocytes # (Manual) 0.07 k/uL (0) H 09/01/17 06:45 Nucleated RBCs 0 /100 WBC (0-0) 09/01/17 06:45 Polychromasia Present 09/01/17 06:45 Sodium 143 mmol/L (137-145) 09/01/17 06:45 Potassium 4.4 mmol/L (3.5-5.1) 09/01/17 06:45 Chloride 103 mmol/L (98-107) 09/01/17 06:45 Carbon Dioxide 29 mmol/L (22-30) 09/01/17 06:45 Anion Gap 11 mmol/L 09/01/17 06:45 BUN 16 mg/dL (9-20) 09/01/17 06:45 Creatinine 0.85 mg/dL (0.66-1.25) 09/01/17 06:45 Est GFR (CKD-EPI)AfAm >90 (>60 ml/min/1.73 sqM) 09/01/17 06:45 Est GFR (CKD-EPI)NonAf >90 (>60 ml/min/1.73 sqM) 09/01/17 06:45 Glucose 86 mg/dL (74-99) 09/01/17 06:45 Calcium 9.2 mg/dL (8.4-10.2) 09/01/17 06:45 T-Suppressor Cells 1414 cell/ul (190-832) H 09/10/17 06:53 % CD4 [place] 19 % (35-66) L 09/10/17 06:53 Absolute CD4 [place] 428 cell/ul (443-1471) L 09/10/17 06:53 CD4/CD8 Ratio 0.3 (1.0-3.7) L 09/10/17 06:53 % CD8 [place] 64 % (9-37) H 09/10/17 06:53 HIV-1 RNA Quant 4,555 Copies/mL (<40) H 09/10/17 06:53 HIV RNA logcopies/mL Ult 3.66 (<1.60) H 09/10/17 06:53 HIV-1 RNA (PCR) DETECTED (Not detected) H 09/10/17 06:53 Assessment and Plan (1) HIV encephalopathy Current Visit: No Status: Acute Code(s): B20 - HUMAN IMMUNODEFICIENCY VIRUS [HIV] DISEASE; G93.40 - ENCEPHALOPATHY, UNSPECIFIED SNOMED Code(s): 405839189 Plan: Patient is sitting up eating his lunch in no distress. Is able to stand briefly to utilize the commode. Does have intermittent difficulties with urinary incontinence. Is related that the social situation has been his biggest issue. Apparently his mother does not believe she can care for him brought him back to Hospital and since she's moving away in 2 weeks and he'll be on his own. Social work is now in the midst of determining best possible plan. The patient to remain on his Sribild as before in hopes that this will allow some improvement of his HIV encephalopathy. As noted during his most recent stay there was no evidence of ASSET PROTECTION DETECTIVE syphilis and he was negative for ROEL Polyomavirus, making PML unlikely. For now continue the antiretrovirals and supportive care and placement will be attempted. On 08/21/2017 the patient is showing some improvement already since being admitted. The social work department is working diligently on trying to devise a acceptable discharge plan. The patient's HIV medications should be covered by ADAP and this may assist his placement in rehab or AFC. 08/24/2017 patient is having some improvement since admission. An ongoing discharge planning is in process. Either rehab or AFC is being requested. For the DVT been placed on Eliquis. Further physical therapy intervention is being requested which may further help with placement. Continue Stribild as before 08/26/2017 patient is stable no complaints of new pain or discomfort of the lower extremities. No difficulties with Eliquis for the DVT, continue the Stribild as before for treatment of his HIV and AIDS. Placement remains the single with difficult aspect of his overall care. 08/28/2017 patient remained stable and tolerating Stribild for his HIV treatment. Eliquis is also being tolerated for his DVT. It is related to the social work program that he likely will be able to be transferred to an adult foster senior living in the near future. We'll be happy to follow in the office for his ongoing treatment of his HIV 08/29/2017 patient is showing some further improvement. Strength appears to be improving. As she receives treatment for his HIV infection the encephalopathy and neuropathy seems to be showing some improvement already. Continue with the Stribild. Working with the social service assistant and discharge planners try to access if the ADAP program will cover his medications while he is in extended care or in AFC. 08/30/2017 place remains the biggest issue. No working with custodial to see if he cannot be placed in a custodial. Grandmother is working with social work. Also working with the ADAP to ensure he'll receive his medications at discharge. Follow up office in a month for follow-up blood work and evaluation. 09/04/2017 placement remains an ongoing barrier. Social work is working with every potential option including 24-hour care being set up in a home setting. If this is not possible then would consider Placement in our rehab facility. 09/05/2017 placement remains a significant difficulty at this time and social work continues to look through many options including potential for 24-hour in- home care. Continues to look at the possibility of placement in our rehab facility. Continue current antiretroviral therapy and will need to recheck his CD4 count and viral load in the next week or so 09/06/2017 little change of status last few days but is improved from admit last time. Placement remains a significant barrier. Will check response to anti retroviral therapy next week. 09/09/2017 continues to have significant barriers to discharge,we'll check his response to antiretroviral therapy. 09/10/2017 the patient continues to feel somewhat better. He was able to navigate the bathroom without the walker but uses a walker in the hallway. Strength seems to be improving. Mentation seems to be improving a bit also. Follow-up HIV viral load and CD4 been requested to monitor his response to his antiretroviral therapy. Hopefully will have placement in AFC home very soon. 09/11/2017 the patient is stable without new acute complaints. The CD4 count has increased no viral load is decreased to 4555 showing an excellent response to current antiretroviral therapy. This will continue. Hopefully as his HIV comes under control his encephalopathy and neuropathy will improve. There appears to be some hope that he will be place in AFC home in the near future. 09/12/2017 patient continues to have no new complaints. He is feeling better. As noted CD4 count is 428 and viral load is markedly decreased. Ativan extra response to the current therapy. Stribild will continue and hopefully will continue to have some improvements of his encephalopathy and neuropathy. Social work continues to struggle with his discharge plan.
[2017-09-13] MEDS: Elviteg/Cobi/Emtric/Tenofo Dis [Stribild Tablet] 1 TAB PO SCH (09:25)
[2017-09-13] MEDS: APIXABAN 5 MG TAB PO SCH ×2 (09:25→21:27)
[2017-09-13] MEDS: GABAPENTIN 300 MG CAP PO SCH ×3 (09:25→21:28)
--- NOTE | 2017-09-13 14:48 | P.PN ---
Subjective Progress Note Date: 09/13/17 This is a 27-year-old Afro-[place] male who had a recent hospitalization on at which time he presented with bilateral lower extremity weakness and broad-based gait. Been progressively getting worse for 2 months. Patient had a history of HIV diagnosed in 2008 but did not seek treatment. He had an extensive workup during his hospitalization including CAT scan, lumbar puncture , MRI of the brain and lumbar spine. He was seen by ID services as well as neurology and psychiatry. He was diagnosed with HIV with HIV encephalopathy and during his stay he was started on Stribild. His grandmother obtained guardianship but was resistant to discharge planning for [facility] or halfway. Extended care facilities would not accept the patient due to cost of HIV medication. Patient was discharged home living with his mother and has now returned to [facility] emergency center with same complaints of lower extremity pain and weakness but mother did relate to the ER physician that they have to move out of their house in 2 weeks and she is not able to take care of him and he needs long-term facility. Case management is following as well as social work will be following the patient. Patient may need a new guardian in place to better address patient's needs. Patient continues to complain of the pain in his lower legs and difficulty walking. He states his appetite is okay. He denies having any fever or chills. He denies any shortness of breath or chest pain. He is concerned for initiating urinary flow. He denies any pain with urination. On 08/21/2017 the patient is feeling better. He believes that his mentation is clear. He was up with a walker into the hallway, and is admitted to the restroom also. Does have some difficulties with urinary incontinence. Appetite is good and he is eating well. 08/24/2017 patient continues to have some improvement but is had some swelling to his lower extremities and a follow-up ultrasound of the right leg no shows evidence of a deep venous thrombosis that and I was not present on 08/06/2017. Patient does not have any other new complaints. Discharge plan remains the greatest difficulty at this time. 08/26/2017 finds the patient to be some further improvement. With physical therapy he got up with a walker and got to the hallway again. Tolerating his HIV medications without difficulty. He is eating well and denies other acute new troubles. Remains completely fixated on his urination 08/28/2017 patient seems to be doing slightly better. He is up with a walker and is able to get into the hallway. No further difficulties with his nutrition. Remains fixated on his urination. 08/29/2017 patient seems to be further improved today. He is eating well. He is up with a walker without significant difficulty. Less fixated and his urination today. Grandmother is present we continue to work with the local resources to see what the options are. 08/30/2017 patient has some further improvement. Continues to have a very significant appetite eating everything that is brought to him. He is up walking in the hallway with the walker. Is voicing no new complaints. Less fixated on his urinary system 09/04/2017 the patient is stable and is able to eat well. The patient is up and walking in the hallway with a walker. He continues to have inappropriate behavior. He is however comfortable 09/05/2017 patient is up in a bleeding a bit better than he was even a few days ago. He seems less fixated on his urination today. Nursing staff is not relating to some inappropriate behavior of the last few days. He knows his grandmother Abhinav is trying to work on a place for him to go. 09/06/2017 still in need of placement but is feeling OK. 09/10/2007. Await further input as far as placement 09/10/2017 it appears that the patient is being approved for Social Security which may now allow placement AFC the near future 09/11/2017 patient is feeling well today. Continues to await placement 09/13/2017 patient continues to have improvement of his status. He is eating very well and with the walker is able to easily maneuver through the room in the hallway. Placement continues to be the largest issue Objective - Vital Signs Vital signs: Vital Signs Temp 98.0 F 09/13/17 14:00 Pulse 85 09/13/17 14:00 Resp 18 09/13/17 14:00 BP 130/72 09/13/17 14:00 Pulse Ox 98 09/13/17 14:00 Intake & Output 09/12/17 09/13/17 09/13/17 18:59 06:59 18:59 Intake Total 360 Output Total 250 Balance -250 360 Weight 101.831 kg Intake: Oral 360 Output: Urine 250 Other: Voiding Method Toilet Toilet Toilet Urinal Urinal Urinal Incontinent # Voids 1 2 3 - Exam Gen: This is a 27-year-old -[place] male. He is sitting in a chair at the bedside and appears to be comfortable and in no acute distress. HEENT: Head is atraumatic, normocephalic. Pupils equal, round. Sclerae is anicteric. Conjunctiva pink. Mucous members of the mouth are moist. No thrush noted. NECK: Supple. No JVD. No lymphadenopathy. No thyromegaly. LUNGS: Clear to auscultation. Scattered and expiratory wheeze. No intercostal retractions. HEART: Regular rate and rhythm. No murmur. ABDOMEN: Soft. Bowel sounds are present. No masses. No tenderness. EXTREMITIES: There is bilateral lower extremity edema left slightly greater than the right. No calf tenderness.patient complains of generalized pain with minimal movement of his legs. NEUROLOGICAL: Patient is awake, alert and is able to answer most questions appropriately. The patient is able to stand at the bedside without difficulty. - Labs CBC & Chem 7: 09/01/17 06:45 09/01/17 06:45 Labs: Laboratory Results WBC 7.0 k/uL (3.8-10.6) 09/01/17 06:45 RBC 3.52 m/uL (4.30-5.90) L 09/01/17 06:45 Hgb 11.2 gm/dL (13.0-17.5) L 09/01/17 06:45 Hct 34.0 % (39.0-53.0) L 09/01/17 06:45 MCV 96.5 fL (80.0-100.0) 09/01/17 06:45 MCH 31.7 pg (25.0-35.0) 09/01/17 06:45 MCHC 32.8 g/dL (31.0-37.0) 09/01/17 06:45 RDW 15.1 % (11.5-15.5) 09/01/17 06:45 Plt Count 290 k/uL (150-450) 09/01/17 06:45 Neutrophils % 58 % 08/31/17 07:05 Neutrophils % (Manual) 58 % 09/01/17 06:45 Lymphocytes % 27 % 08/31/17 07:05 Lymphocytes % (Manual) 32 % 09/01/17 06:45 Monocytes % 8 % 08/31/17 07:05 Monocytes % (Manual) 5 % 09/01/17 06:45 Eosinophils % 2 % 08/31/17 07:05 Eosinophils % (Manual) 4 % 09/01/17 06:45 Basophils % 1 % 08/31/17 07:05 Myelocytes % 1 % 09/01/17 06:45 Neutrophils # 3.4 k/uL (1.3-7.7) 08/31/17 07:05 Neutrophils # (Manual) 4.06 k/uL (1.3-7.7) 09/01/17 06:45 Lymphocytes # 1.6 k/uL (1.0-4.8) 08/31/17 07:05 Lymphocytes # (Manual) 2.24 k/uL (1.0-4.8) 09/01/17 06:45 Monocytes # 0.5 k/uL (0-1.0) 08/31/17 07:05 Monocytes # (Manual) 0.35 k/uL (0-1.0) 09/01/17 06:45 Eosinophils # 0.1 k/uL (0-0.7) 08/31/17 07:05 Eosinophils # (Manual) 0.28 k/uL (0-0.7) 09/01/17 06:45 Basophils # 0.0 k/uL (0-0.2) 08/31/17 07:05 Myelocytes # (Manual) 0.07 k/uL (0) H 09/01/17 06:45 Nucleated RBCs 0 /100 WBC (0-0) 09/01/17 06:45 Polychromasia Present 09/01/17 06:45 Sodium 143 mmol/L (137-145) 09/01/17 06:45 Potassium 4.4 mmol/L (3.5-5.1) 09/01/17 06:45 Chloride 103 mmol/L (98-107) 09/01/17 06:45 Carbon Dioxide 29 mmol/L (22-30) 09/01/17 06:45 Anion Gap 11 mmol/L 09/01/17 06:45 BUN 16 mg/dL (9-20) 09/01/17 06:45 Creatinine 0.85 mg/dL (0.66-1.25) 09/01/17 06:45 Est GFR (CKD-EPI)AfAm >90 (>60 ml/min/1.73 sqM) 09/01/17 06:45 Est GFR (CKD-EPI)NonAf >90 (>60 ml/min/1.73 sqM) 09/01/17 06:45 Glucose 86 mg/dL (74-99) 09/01/17 06:45 Calcium 9.2 mg/dL (8.4-10.2) 09/01/17 06:45 T-Suppressor Cells 1414 cell/ul (190-832) H 09/10/17 06:53 % CD4 [place] 19 % (35-66) L 09/10/17 06:53 Absolute CD4 [place] 428 cell/ul (443-1471) L 09/10/17 06:53 CD4/CD8 Ratio 0.3 (1.0-3.7) L 09/10/17 06:53 % CD8 Suppressor 64 % (9-37) H 09/10/17 06:53 HIV-1 RNA Quant 4,555 Copies/mL (<40) H 09/10/17 06:53 HIV RNA logcopies/mL Ult 3.66 (<1.60) H 09/10/17 06:53 HIV-1 RNA (PCR) DETECTED (Not detected) H 09/10/17 06:53 Assessment and Plan (1) HIV encephalopathy Current Visit: No Status: Acute Code(s): B20 - HUMAN IMMUNODEFICIENCY VIRUS [HIV] DISEASE; G93.40 - ENCEPHALOPATHY, UNSPECIFIED SNOMED Code(s): 520630897 Plan: Patient is sitting up eating his lunch in no distress. Is able to stand briefly to utilize the commode. Does have intermittent difficulties with urinary incontinence. Is related that the social situation has been his biggest issue. Apparently his mother does not believe she can care for him brought him back to Hospital and since she's moving away in 2 weeks and he'll be on his own. Social work is now in the midst of determining best possible plan. The patient to remain on his Sribild as before in hopes that this will allow some improvement of his HIV encephalopathy. As noted during his most recent stay there was no evidence of PROCESS ARCHITECT syphilis and he was negative for ROEL Polyomavirus, making PML unlikely. For now continue the antiretrovirals and supportive care and placement will be attempted. On 08/21/2017 the patient is showing some improvement already since being admitted. The social work department is working diligently on trying to devise a acceptable discharge plan. The patient's HIV medications should be covered by ADAP and this may assist his placement in rehab or AFC. 08/24/2017 patient is having some improvement since admission. An ongoing discharge planning is in process. Either rehab or AFC is being requested. For the DVT been placed on Eliquis. Further physical therapy intervention is being requested which may further help with placement. Continue Stribild as before 08/26/2017 patient is stable no complaints of new pain or discomfort of the lower extremities. No difficulties with Eliquis for the DVT, continue the Stribild as before for treatment of his HIV and AIDS. Placement remains the single with difficult aspect of his overall care. 08/28/2017 patient remained stable and tolerating Stribild for his HIV treatment. Eliquis is also being tolerated for his DVT. It is related to the social work program that he likely will be able to be transferred to an adult foster chcf in the near future. We'll be happy to follow in the office for his ongoing treatment of his HIV 08/29/2017 patient is showing some further improvement. Strength appears to be improving. As she receives treatment for his HIV infection the encephalopathy and neuropathy seems to be showing some improvement already. Continue with the Stribild. Working with the social welfare administrator and discharge planners try to access if the ADAP program will cover his medications while he is in extended care or in AFC. 08/30/2017 place remains the biggest issue. No working with halfway to see if he cannot be placed in a halfway. Grandmother is working with social work. Also working with the ADAP to ensure he'll receive his medications at discharge. Follow up office in a month for follow-up blood work and evaluation. 09/04/2017 placement remains an ongoing barrier. Social work is working with every potential option including 24-hour care being set up in a home setting. If this is not possible then would consider Placement in our rehab facility. 09/05/2017 placement remains a significant difficulty at this time and social work continues to look through many options including potential for 24-hour in- home care. Continues to look at the possibility of placement in our rehab facility. Continue current antiretroviral therapy and will need to recheck his CD4 count and viral load in the next week or so 09/06/2017 little change of status last few days but is improved from admit last time. Placement remains a significant barrier. Will check response to anti retroviral therapy next week. 09/09/2017 continues to have significant barriers to discharge,we'll check his response to antiretroviral therapy. 09/10/2017 the patient continues to feel somewhat better. He was able to navigate the bathroom without the walker but uses a walker in the hallway. Strength seems to be improving. Mentation seems to be improving a bit also. Follow-up HIV viral load and CD4 been requested to monitor his response to his antiretroviral therapy. Hopefully will have placement in AFC home very soon. 09/11/2017 the patient is stable without new acute complaints. The CD4 count has increased no viral load is decreased to 4555 showing an excellent response to current antiretroviral therapy. This will continue. Hopefully as his HIV comes under control his encephalopathy and neuropathy will improve. There appears to be some hope that he will be place in AFC home in the near future. 09/12/2017 patient continues to have no new complaints. He is feeling better. As noted CD4 count is 428 and viral load is markedly decreased. Ativan extra response to the current therapy. Stribild will continue and hopefully will continue to have some improvements of his encephalopathy and neuropathy. Social work continues to struggle with his discharge plan. 09/13/2017 patient without new acute complaints. He has noted his are starting to have a response to the antiretroviral therapy. Before, has gone up 300 points the viral load is dropped from 2,000,000 to 4500. We'll continue current therapies and social work is diligently working on a viable discharge plan.
[2017-09-13] MEDS: ACETAMINOPHEN TAB 325 MG TAB PO PRN (19:55)
[2017-09-14] MEDS: ACETAMINOPHEN TAB 325 MG TAB PO PRN ×3 (03:16→19:22)
[2017-09-14] MEDS: Elviteg/Cobi/Emtric/Tenofo Dis [Stribild Tablet] 1 TAB PO SCH (09:17)
[2017-09-14] MEDS: GABAPENTIN 300 MG CAP PO SCH ×3 (09:17→21:10)
[2017-09-14] MEDS: APIXABAN 5 MG TAB PO SCH ×2 (09:17→21:10)
--- NOTE | 2017-09-14 23:22 | P.PN ---
Subjective Progress Note Date: 09/12/17 Principal diagnosis: Lower extremity DVT This is a pleasant 27 years old male with past medical history of HIV, no entrance to treatment, he was recently hospitalized for lower extremity weakness , HIV encephalopathy possible and neuropathy, he had extensive workup at that time and his been evaluated by neurologist and ID team. patient was discharge to home in the care of his mother while his grandmother was signed as his guardian. He brought in to the emergency room last night because his mother she could not take care of him anymore related to his lower extremity weakness, however patient denies to me any other further complaints. No chest pain, dyspnea, fever, change in urine or bowel habits 08/21/2017 Patient at bedside says his weakness in the lower extremity are improving today. His guardian and guarded mother is at bedside, discussed the case with her and she states that for 3 days after his discharge last time he wasn't getting his HIV medication for no specific reason, and he lost his improvement last time he was in the hospital while he is off his medication. Weakness is improved after restarted medication as per patient On 08/23/2017 Patient failed last night and hit his head, no arthritis, no wounds, patient had some headache with now resolved. Continue with neuro check Neurology saw the patient's and recommended Neurontin and physical therapy and Doppler of lower ext, pt states to me he has pain in his both legs only when uses them and that is been going on for about 2 weeks since he is been discharged last time , his pain is the same and not progressive, while lying in bed he has no pain Patient still pending a placement 08/24/2017 Patient is still complaining of leg pain and PT OT is following. Patient is being continued on anticoagulation. Patient is pending placement at this time. No complaints of chest pain or shortness of breath. No nausea vomiting or abdominal pain. No other acute overnight issues. 08/25/2017 Patient says that his pain is better today. Able to sit in the chair. Otherwise participating in physical therapy and able to walk with a walker. Possible transfer to rehab on Saturday. 09/12/2017 Patient denied any new complaints of chest pain or shortness of breath. Patient is able to ambulate in the hallway. Awaiting placement otherwise CD4 count is 428 and viral load 4555. ID is following. All other review of systems negative except the above Current medications reviewed Objective - Vital Signs Vital signs: Vital Signs Temp 98 F 09/12/17 14:48 Pulse 88 09/12/17 14:48 Resp 16 09/12/17 14:48 BP 120/77 09/12/17 14:48 Pulse Ox 98 09/12/17 14:48 Intake & Output 09/12/17 09/12/17 09/13/17 06:59 18:59 06:59 Intake Total 2280 Output Total 1000 250 Balance 1280 -250 Weight 101.831 kg Intake: Oral 2280 Output: Urine 1000 250 Stool 0 Other: Voiding Method Toilet Toilet Urinal Urinal # Voids 3 1 - Exam PHYSICAL EXAMINATION: Patient is lying in the bed comfortably, no acute distress, awake alert and oriented. Patient has generalized weakness. HEENT: Normocephalic. Neck is supple. Pupils reactive. Nostrils clear. Oral cavity is moist. Ears reveal no drainage. Neck reveals no JVD, carotid bruits, or thyromegaly. CHEST EXAMINATION: Trachea is central. Symmetrical expansion. Lung anderson clear to auscultation and percussion. CARDIAC: Normal S1, S2 with no gallops. No murmurs ABDOMEN: Soft. Bowel sounds normal. No organomegaly. No abdominal bruits. Extremities: reveal no edema. No clubbing or cyanosis Neurologically awake, alert, oriented x3 with well-coordinated movements. No focal deficits noted Skin: No rash or skin lesions. Psychiatric: Coperative. Nonsuicidal Musculoskeletal: No joint swelling or deformity. Normal range of motion. - Labs CBC & Chem 7: 09/01/17 06:45 09/01/17 06:45 Assessment and Plan Assessment: 1. severe HIV peripheral neuropathy 2. Bilateral lower extremity weakness, mostly secondary to 1 above 3. HIV encephalopathy history 4. Anemia of chronic disease and 5. Acute right lower extremity DVT Plan: Patient admitted to the hospital for placement, he has difficulty taking care of himself given his lower extremity weakness which is chronic, his grandmother is his guardian. continue with the same HIV treatment. Patient lower extremity weakness has improved . Continue with Neurontin. on HIV medication however they are still weak and he needs placement, social staff worker is following on the case. Time with Patient: Greater than 30
--- NOTE | 2017-09-14 23:23 | P.PN ---
Subjective Progress Note Date: 09/13/17 Principal diagnosis: Lower extremity DVT This is a pleasant 27 years old male with past medical history of HIV, no entrance to treatment, he was recently hospitalized for lower extremity weakness , HIV encephalopathy possible and neuropathy, he had extensive workup at that time and his been evaluated by neurologist and ID team. patient was discharge to home in the care of his mother while his grandmother was signed as his guardian. He brought in to the emergency room last night because his mother she could not take care of him anymore related to his lower extremity weakness, however patient denies to me any other further complaints. No chest pain, dyspnea, fever, change in urine or bowel habits 08/21/2017 Patient at bedside says his weakness in the lower extremity are improving today. His guardian and guarded mother is at bedside, discussed the case with her and she states that for 3 days after his discharge last time he wasn't getting his HIV medication for no specific reason, and he lost his improvement last time he was in the hospital while he is off his medication. Weakness is improved after restarted medication as per patient On 08/23/2017 Patient failed last night and hit his head, no arthritis, no wounds, patient had some headache with now resolved. Continue with neuro check Neurology saw the patient's and recommended Neurontin and physical therapy and Doppler of lower ext, pt states to me he has pain in his both legs only when uses them and that is been going on for about 2 weeks since he is been discharged last time , his pain is the same and not progressive, while lying in bed he has no pain Patient still pending a placement 08/24/2017 Patient is still complaining of leg pain and PT OT is following. Patient is being continued on anticoagulation. Patient is pending placement at this time. No complaints of chest pain or shortness of breath. No nausea vomiting or abdominal pain. No other acute overnight issues. 08/25/2017 Patient says that his pain is better today. Able to sit in the chair. Otherwise participating in physical therapy and able to walk with a walker. Possible transfer to rehab on Saturday. 09/12/2017 Patient denied any new complaints of chest pain or shortness of breath. Patient is able to ambulate in the hallway. Awaiting placement otherwise CD4 count is 428 and viral load 4555. ID is following. 09/13/2017 Patient denied any new complaints today. ID is following. No fever no chills. Able to ambulate. Awaiting placement. All other review of systems negative except the above Current medications reviewed Objective - Vital Signs Vital signs: Vital Signs Temp 98.0 F 09/13/17 14:00 Pulse 85 09/13/17 14:00 Resp 18 09/13/17 14:00 BP 130/72 09/13/17 14:00 Pulse Ox 98 09/13/17 14:00 Intake & Output 09/12/17 09/13/17 09/13/17 18:59 06:59 18:59 Intake Total 360 Output Total 250 Balance -250 360 Weight 101.831 kg 108.2 kg Intake: Oral 360 Output: Urine 250 Other: Voiding Method Toilet Toilet Toilet Urinal Urinal Urinal Incontinent # Voids 1 2 3 - Exam PHYSICAL EXAMINATION: Patient is lying in the bed comfortably, no acute distress, awake alert and oriented. HEENT: Normocephalic. Neck is supple. Pupils reactive. Nostrils clear. Oral cavity is moist. Ears reveal no drainage. Neck reveals no JVD, carotid bruits, or thyromegaly. CHEST EXAMINATION: Trachea is central. Symmetrical expansion. Lung anderson clear to auscultation and percussion. CARDIAC: Normal S1, S2 with no gallops. No murmurs ABDOMEN: Soft. Bowel sounds normal. No organomegaly. No abdominal bruits. Extremities: reveal no edema. No clubbing or cyanosis Neurologically awake, alert, oriented x3 with well-coordinated movements. No focal deficits noted Skin: No rash or skin lesions. Psychiatric: Coperative. Nonsuicidal Musculoskeletal: No joint swelling or deformity. Normal range of motion. - Labs CBC & Chem 7: 09/01/17 06:45 09/01/17 06:45 Assessment and Plan Assessment: 1. severe HIV peripheral neuropathy 2. Bilateral lower extremity weakness, mostly secondary to 1 above 3. HIV encephalopathy history 4. Anemia of chronic disease and 5. Acute right lower extremity DVT Plan: Patient admitted to the hospital for placement, he has difficulty taking care of himself given his lower extremity weakness which is chronic, his grandmother is his guardian. continue with the same HIV treatment. Patient lower extremity weakness has improved . Continue with Neurontin. on HIV medication however they are still weak and he needs placement, social service manager is following on the case. Time with Patient: Greater than 30
--- NOTE | 2017-09-14 23:24 | P.PN ---
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 patient was discharge to home in the care of his mother while his grandmother was signed as his guardian. He brought in to the emergency room last night because his mother she could not take care of him anymore related to his lower extremity weakness, however patient denies to me any other further complaints. No chest pain, dyspnea, fever, change in urine or bowel habits 08/21/2017 Patient at bedside says his weakness in the lower extremity are improving today. His guardian and guarded mother is at bedside, discussed the case with her and she states that for 3 days after his discharge last time he wasn't getting his HIV medication for no specific reason, and he lost his improvement last time he was in the hospital while he is off his medication. Weakness is improved after restarted medication as per patient On 08/23/2017 Patient failed last night and hit his head, no arthritis, no wounds, patient had some headache with now resolved. Continue with neuro check Neurology saw the patient's and recommended Neurontin and physical therapy and Doppler of lower ext, pt states to me he has pain in his both legs only when uses them and that is been going on for about 2 weeks since he is been discharged last time , his pain is the same and not progressive, while lying in bed he has no pain Patient still pending a placement 08/24/2017 Patient is still complaining of leg pain and PT OT is following. Patient is being continued on anticoagulation. Patient is pending placement at this time. No complaints of chest pain or shortness of breath. No nausea vomiting or abdominal pain. No other acute overnight issues. 08/25/2017 Patient says that his pain is better today. Able to sit in the chair. Otherwise participating in physical therapy and able to walk with a walker. Possible transfer to rehab on Saturday. 09/12/2017 Patient denied any new complaints of chest pain or shortness of breath. Patient is able to ambulate in the hallway. Awaiting placement otherwise CD4 count is 428 and viral load 4555. ID is following. 09/13/2017 Patient denied any new complaints today. ID is following. No fever no chills. Able to ambulate. Awaiting placement. 09/14/2017 Patient denied any new complaints today. No chest pain or shortness of breath. no leg swelling or pain All other review of systems negative except the above Current medications reviewed Objective - Vital Signs Vital signs: Vital Signs Temp 97.8 F 09/14/17 21:11 Pulse 88 09/14/17 21:11 Resp 16 09/14/17 21:11 BP 134/85 09/14/17 21:11 Pulse Ox 97 09/14/17 21:11 Intake & Output 09/14/17 09/14/17 09/15/17 06:59 18:59 06:59 Intake Total 1040 Output Total 0 Balance 1040 Intake: Oral 1040 Output: Stool 0 Other: Voiding Method Toilet Toilet Toilet Urinal Urinal Urinal Incontinent Incontinent Incontinent # Voids 3 - Exam PHYSICAL EXAMINATION: Patient is lying in the bed comfortably, no acute distress, awake alert and oriented. HEENT: Normocephalic. Neck is supple. Pupils reactive. Nostrils clear. Oral cavity is moist. Ears reveal no drainage. Neck reveals no JVD, carotid bruits, or thyromegaly. CHEST EXAMINATION: Trachea is central. Symmetrical expansion. Lung anderson clear to auscultation and percussion. CARDIAC: Normal S1, S2 with no gallops. No murmurs ABDOMEN: Soft. Bowel sounds normal. No organomegaly. No abdominal bruits. Extremities: reveal no edema. No clubbing or cyanosis Neurologically awake, alert, oriented x3 with well-coordinated movements. No focal deficits noted Skin: No rash or skin lesions. Psychiatric: Coperative. Nonsuicidal Musculoskeletal: No joint swelling or deformity. Normal range of motion. - Labs CBC & Chem 7: 09/01/17 06:45 09/01/17 06:45 Assessment and Plan Assessment: 1. severe HIV peripheral neuropathy 2. Bilateral lower extremity weakness, mostly secondary to 1 above 3. HIV encephalopathy history 4. Anemia of chronic disease and 5. Acute right lower extremity DVT Plan: Patient admitted to the hospital for placement, he has difficulty taking care of himself given his lower extremity weakness which is chronic, his grandmother is his guardian. continue with the same HIV treatment. Patient lower extremity weakness has improved . Continue with Neurontin. on HIV medication however they are still weak and he needs placement, social worker assistant is following on the case.
[2017-09-15] MEDS: ACETAMINOPHEN TAB 325 MG TAB PO PRN ×3 (03:17→22:36)
[2017-09-15] MEDS: GABAPENTIN 300 MG CAP PO SCH ×3 (08:24→22:36)
[2017-09-15] MEDS: Elviteg/Cobi/Emtric/Tenofo Dis [Stribild Tablet] 1 TAB PO SCH (08:24)
[2017-09-15] MEDS: APIXABAN 5 MG TAB PO SCH ×2 (08:24→22:36)
--- NOTE | 2017-09-15 23:28 | P.PN ---
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 patient was discharge to home in the care of his mother while his grandmother was signed as his guardian. He brought in to the emergency room last night because his mother she could not take care of him anymore related to his lower extremity weakness, however patient denies to me any other further complaints. No chest pain, dyspnea, fever, change in urine or bowel habits 08/21/2017 Patient at bedside says his weakness in the lower extremity are improving today. His guardian and guarded mother is at bedside, discussed the case with her and she states that for 3 days after his discharge last time he wasn't getting his HIV medication for no specific reason, and he lost his improvement last time he was in the hospital while he is off his medication. Weakness is improved after restarted medication as per patient On 08/23/2017 Patient failed last night and hit his head, no arthritis, no wounds, patient had some headache with now resolved. Continue with neuro check Neurology saw the patient's and recommended Neurontin and physical therapy and Doppler of lower ext, pt states to me he has pain in his both legs only when uses them and that is been going on for about 2 weeks since he is been discharged last time , his pain is the same and not progressive, while lying in bed he has no pain Patient still pending a placement 08/24/2017 Patient is still complaining of leg pain and PT OT is following. Patient is being continued on anticoagulation. Patient is pending placement at this time. No complaints of chest pain or shortness of breath. No nausea vomiting or abdominal pain. No other acute overnight issues. 08/25/2017 Patient says that his pain is better today. Able to sit in the chair. Otherwise participating in physical therapy and able to walk with a walker. Possible transfer to rehab on Saturday. 09/12/2017 Patient denied any new complaints of chest pain or shortness of breath. Patient is able to ambulate in the hallway. Awaiting placement otherwise CD4 count is 428 and viral load 4555. ID is following. 09/13/2017 Patient denied any new complaints today. ID is following. No fever no chills. Able to ambulate. Awaiting placement. 09/14/2017 Patient denied any new complaints today. No chest pain or shortness of breath. no leg swelling or pain 09/15/2017 patient denied any new complaints today. No chest pain or shortness of breath. Ambulating well in the hallway. Otherwise awaiting placement All other review of systems negative except the above Current medications reviewed Objective - Vital Signs Vital signs: Vital Signs Temp 98 F 09/15/17 15:00 Pulse 81 09/15/17 15:00 Resp 18 09/15/17 15:00 BP 138/80 09/15/17 15:00 Pulse Ox 98 09/15/17 15:00 Intake & Output 09/14/17 09/15/17 09/15/17 18:59 06:59 18:59 Intake Total 1040 1720 Output Total 0 1600 0 Balance 1040 -1600 1720 Weight 108.2 kg Intake: Oral 1040 1720 Output: Urine 1600 Stool 0 0 Other: Voiding Method Toilet Toilet Toilet Urinal Urinal Urinal Incontinent Incontinent Incontinent # Voids 3 - Exam PHYSICAL EXAMINATION: Patient is lying in the bed comfortably, no acute distress, awake alert and oriented. HEENT: Normocephalic. Neck is supple. Pupils reactive. Nostrils clear. Oral cavity is moist. Ears reveal no drainage. Neck reveals no JVD, carotid bruits, or thyromegaly. CHEST EXAMINATION: Trachea is central. Symmetrical expansion. Lung anderson clear to auscultation and percussion. CARDIAC: Normal S1, S2 with no gallops. No murmurs ABDOMEN: Soft. Bowel sounds normal. No organomegaly. No abdominal bruits. Extremities: reveal no edema. No clubbing or cyanosis Neurologically awake, alert, oriented x3 with well-coordinated movements. No focal deficits noted Skin: No rash or skin lesions. Psychiatric: Coperative. Nonsuicidal Musculoskeletal: No joint swelling or deformity. Normal range of motion. - Labs CBC & Chem 7: 09/01/17 06:45 09/01/17 06:45 Assessment and Plan Assessment: 1. severe HIV peripheral neuropathy 2. Bilateral lower extremity weakness, mostly secondary to 1 above 3. HIV encephalopathy history 4. Anemia of chronic disease and 5. Acute right lower extremity DVT Plan: Patient admitted to the hospital for placement, he has difficulty taking care of himself given his lower extremity weakness which is chronic, his grandmother is his guardian. continue with the same HIV treatment. Patient lower extremity weakness has improved . Continue with Neurontin. on HIV medication however they are still weak and he needs placement, social service worker is following on the case.
[2017-09-16] MEDS: ACETAMINOPHEN TAB 325 MG TAB PO PRN (04:01)
[2017-09-16 05:58] VITALS: RESP 16
[2017-09-16] MEDS: Elviteg/Cobi/Emtric/Tenofo Dis [Stribild Tablet] 1 TAB PO SCH (07:46)
[2017-09-16] MEDS: APIXABAN 5 MG TAB PO SCH (07:47)
[2017-09-16] MEDS: GABAPENTIN 300 MG CAP PO SCH ×2 (07:47→15:41)
[2017-09-16 14:34] VITALS: BP 129/75; PULSE 76; TEMP 97.5
--- NOTE | 2017-09-16 18:23 | P.PN ---
Subjective Progress Note Date: 09/16/17 This is a 27-year-old Afro-[place] male who had a recent hospitalization on at which time he presented with bilateral lower extremity weakness and broad-based gait. Been progressively getting worse for 2 months. Patient had a history of HIV diagnosed in 2008 but did not seek treatment. He had an extensive workup during his hospitalization including CAT scan, lumbar puncture , MRI of the brain and lumbar spine. He was seen by ID services as well as neurology and psychiatry. He was diagnosed with HIV with HIV encephalopathy and during his stay he was started on Stribild. His grandmother obtained guardianship but was resistant to discharge planning for [facility]FC or long term. Extended care facilities would not accept the patient due to cost of HIV medication. Patient was discharged home living with his mother and has now returned to [facility] with same complaints of lower extremity pain and weakness but mother did relate to the ER physician that they have to move out of their house in 2 weeks and she is not able to take care of him and he needs long-term facility. Case management is following as well as social work will be following the patient. Patient may need a new guardian in place to better address patient's needs. Patient continues to complain of the pain in his lower legs and difficulty walking. He states his appetite is okay. He denies having any fever or chills. He denies any shortness of breath or chest pain. He is concerned for initiating urinary flow. He denies any pain with urination. On 08/21/2017 the patient is feeling better. He believes that his mentation is clear. He was up with a walker into the hallway, and is admitted to the restroom also. Does have some difficulties with urinary incontinence. Appetite is good and he is eating well. 08/24/2017 patient continues to have some improvement but is had some swelling to his lower extremities and a follow-up ultrasound of the right leg no shows evidence of a deep venous thrombosis that and I was not present on 08/06/2017. Patient does not have any other new complaints. Discharge plan remains the greatest difficulty at this time. 08/26/2017 finds the patient to be some further improvement. With physical therapy he got up with a walker and got to the hallway again. Tolerating his HIV medications without difficulty. He is eating well and denies other acute new troubles. Remains completely fixated on his urination 08/28/2017 patient seems to be doing slightly better. He is up with a walker and is able to get into the hallway. No further difficulties with his nutrition. Remains fixated on his urination. 08/29/2017 patient seems to be further improved today. He is eating well. He is up with a walker without significant difficulty. Less fixated and his urination today. Grandmother is present we continue to work with the local resources to see what the options are. 08/30/2017 patient has some further improvement. Continues to have a very significant appetite eating everything that is brought to him. He is up walking in the hallway with the walker. Is voicing no new complaints. Less fixated on his urinary system 09/04/2017 the patient is stable and is able to eat well. The patient is up and walking in the hallway with a walker. He continues to have inappropriate behavior. He is however comfortable 09/05/2017 patient is up in a bleeding a bit better than he was even a few days ago. He seems less fixated on his urination today. Nursing staff is not relating to some inappropriate behavior of the last few days. He knows his grandmother Abhinav is trying to work on a place for him to go. 09/06/2017 still in need of placement but is feeling OK. 09/10/2007. Await further input as far as placement 09/10/2017 it appears that the patient is being approved for Social Security which may now allow placement AFC the near future 09/11/2017 patient is feeling well today. Continues to await placement 09/13/2017 patient continues to have improvement of his status. He is eating very well and with the walker is able to easily maneuver through the room in the hallway. Placement continues to be the largest issue 09/16/2017 the patient is quite excited apparently there've been plans for him to be able to be discharged home today. Prescriptions for his outpatient medications are provided. We can go over the fact that he is ready Quite a good response despite a short period of time to his anti-retroviral therapy and the overall importance of is taking his medication. Objective - Vital Signs Vital signs: Vital Signs Temp 97.5 F L 09/16/17 14:33 Pulse 76 09/16/17 15:38 Resp 16 09/16/17 15:38 BP 129/75 09/16/17 14:33 Pulse Ox 99 09/16/17 14:33 Intake & Output 09/15/17 09/16/17 09/16/17 18:59 06:59 18:59 Intake Total 1720 2910 1450 Output Total 800 0 800 Balance 920 2910 650 Weight 108.2 kg 108.2 kg Intake: Oral 1720 2910 1450 Output: Urine 800 800 Stool 0 0 0 Urine/Stool Mix 0 Other: Voiding Method Toilet Toilet Toilet Urinal Urinal Urinal Incontinent Incontinent Incontinent # Voids 3 2 5 - Exam Gen: This is a 27-year-old -[place] male. He is sitting in a chair at the bedside and appears to be comfortable and in no acute distress. HEENT: Head is atraumatic, normocephalic. Pupils equal, round. Sclerae is anicteric. Conjunctiva pink. Mucous members of the mouth are moist. No thrush noted. NECK: Supple. No JVD. No lymphadenopathy. No thyromegaly. LUNGS: Clear to auscultation. Scattered and expiratory wheeze. No intercostal retractions. HEART: Regular rate and rhythm. No murmur. ABDOMEN: Soft. Bowel sounds are present. No masses. No tenderness. EXTREMITIES: There is bilateral lower extremity edema left slightly greater than the right. No calf tenderness.patient complains of generalized pain with minimal movement of his legs. NEUROLOGICAL: Patient is awake, alert and is able to answer most questions appropriately. Patient is able to ambulate up in the room and into the hallway with his wheeled walker without difficulty. - Labs CBC & Chem 7: 09/01/17 06:45 09/01/17 06:45 Labs: Laboratory Results WBC 7.0 k/uL (3.8-10.6) 09/01/17 06:45 RBC 3.52 m/uL (4.30-5.90) L 09/01/17 06:45 Hgb 11.2 gm/dL (13.0-17.5) L 09/01/17 06:45 Hct 34.0 % (39.0-53.0) L 09/01/17 06:45 MCV 96.5 fL (80.0-100.0) 09/01/17 06:45 MCH 31.7 pg (25.0-35.0) 09/01/17 06:45 MCHC 32.8 g/dL (31.0-37.0) 09/01/17 06:45 RDW 15.1 % (11.5-15.5) 09/01/17 06:45 Plt Count 290 k/uL (150-450) 09/01/17 06:45 Neutrophils % 58 % 08/31/17 07:05 Neutrophils % (Manual) 58 % 09/01/17 06:45 Lymphocytes % 27 % 08/31/17 07:05 Lymphocytes % (Manual) 32 % 09/01/17 06:45 Monocytes % 8 % 08/31/17 07:05 Monocytes % (Manual) 5 % 09/01/17 06:45 Eosinophils % 2 % 08/31/17 07:05 Eosinophils % (Manual) 4 % 09/01/17 06:45 Basophils % 1 % 08/31/17 07:05 Myelocytes % 1 % 09/01/17 06:45 Neutrophils # 3.4 k/uL (1.3-7.7) 08/31/17 07:05 Neutrophils # (Manual) 4.06 k/uL (1.3-7.7) 09/01/17 06:45 Lymphocytes # 1.6 k/uL (1.0-4.8) 08/31/17 07:05 Lymphocytes # (Manual) 2.24 k/uL (1.0-4.8) 09/01/17 06:45 Monocytes # 0.5 k/uL (0-1.0) 08/31/17 07:05 Monocytes # (Manual) 0.35 k/uL (0-1.0) 09/01/17 06:45 Eosinophils # 0.1 k/uL (0-0.7) 08/31/17 07:05 Eosinophils # (Manual) 0.28 k/uL (0-0.7) 09/01/17 06:45 Basophils # 0.0 k/uL (0-0.2) 08/31/17 07:05 Myelocytes # (Manual) 0.07 k/uL (0) H 09/01/17 06:45 Nucleated RBCs 0 /100 WBC (0-0) 09/01/17 06:45 Polychromasia Present 09/01/17 06:45 Sodium 143 mmol/L (137-145) 09/01/17 06:45 Potassium 4.4 mmol/L (3.5-5.1) 09/01/17 06:45 Chloride 103 mmol/L (98-107) 09/01/17 06:45 Carbon Dioxide 29 mmol/L (22-30) 09/01/17 06:45 Anion Gap 11 mmol/L 09/01/17 06:45 BUN 16 mg/dL (9-20) 09/01/17 06:45 Creatinine 0.85 mg/dL (0.66-1.25) 09/01/17 06:45 Est GFR (CKD-EPI)AfAm >90 (>60 ml/min/1.73 sqM) 09/01/17 06:45 Est GFR (CKD-EPI)NonAf >90 (>60 ml/min/1.73 sqM) 09/01/17 06:45 Glucose 86 mg/dL (74-99) 09/01/17 06:45 Calcium 9.2 mg/dL (8.4-10.2) 09/01/17 06:45 T-Suppressor Cells 1414 cell/ul (190-832) H 09/10/17 06:53 % CD4 [place] 19 % (35-66) L 09/10/17 06:53 Absolute CD4 [place] 428 cell/ul (443-1471) L 09/10/17 06:53 CD4/CD8 Ratio 0.3 (1.0-3.7) L 09/10/17 06:53 % CD8 Supp[place] 64 % (9-37) H 09/10/17 06:53 HIV-1 RNA Quant 4,555 Copies/mL (<40) H 09/10/17 06:53 HIV RNA logcopies/mL Ult 3.66 (<1.60) H 09/10/17 06:53 HIV-1 RNA (PCR) DETECTED (Not detected) H 09/10/17 06:53 Assessment and Plan (1) HIV encephalopathy Status: Acute Code(s): B20 - HUMAN IMMUNODEFICIENCY VIRUS [HIV] DISEASE; G93.40 - ENCEPHALOPATHY, UNSPECIFIED SNOMED Code(s): 100144618 Plan: Patient is sitting up eating his lunch in no distress. Is able to stand briefly to utilize the commode. Does have intermittent difficulties with urinary incontinence. Is related that the social situation has been his biggest issue. Apparently his mother does not believe she can care for him brought him back to Hospital and since she's moving away in 2 weeks and he'll be on his own. Social work is now in the midst of determining best possible plan. The patient to remain on his Sribild as before in hopes that this will allow some improvement of his HIV encephalopathy. As noted during his most recent stay there was no evidence of IT COMPLIANCE ANALYST syphilis and he was negative for ROEL Polyomavirus, making PML unlikely. For now continue the antiretrovirals and supportive care and placement will be attempted. On 08/21/2017 the patient is showing some improvement already since being admitted. The social work department is working diligently on trying to devise a acceptable discharge plan. The patient's HIV medications should be covered by ADAP and this may assist his placement in rehab or AFC. 08/24/2017 patient is having some improvement since admission. An ongoing discharge planning is in process. Either rehab or AFC is being requested. For the DVT been placed on Eliquis. Further physical therapy intervention is being requested which may further help with placement. Continue Stribild as before 08/26/2017 patient is stable no complaints of new pain or discomfort of the lower extremities. No difficulties with Eliquis for the DVT, continue the Stribild as before for treatment of his HIV and AIDS. Placement remains the single with difficult aspect of his overall care. 08/28/2017 patient remained stable and tolerating Stribild for his HIV treatment. Eliquis is also being tolerated for his DVT. It is related to the social work program that he likely will be able to be transferred to an adult foster residential in the near future. We'll be happy to follow in the office for his ongoing treatment of his HIV 08/29/2017 patient is showing some further improvement. Strength appears to be improving. As she receives treatment for his HIV infection the encephalopathy and neuropathy seems to be showing some improvement already. Continue with the Stribild. Working with the family welfare social work professor and discharge planners try to access if the ADAP program will cover his medications while he is in extended care or in AFC. 08/30/2017 place remains the biggest issue. No working with long term to see if he cannot be placed in a long term. Grandmother is working with social work. Also working with the ADAP to ensure he'll receive his medications at discharge. Follow up office in a month for follow-up blood work and evaluation. 09/04/2017 placement remains an ongoing barrier. Social work is working with every potential option including 24-hour care being set up in a home setting. If this is not possible then would consider Placement in our rehab facility. 09/05/2017 placement remains a significant difficulty at this time and social work continues to look through many options including potential for 24-hour in- home care. Continues to look at the possibility of placement in our rehab facility. Continue current antiretroviral therapy and will need to recheck his CD4 count and viral load in the next week or so 09/06/2017 little change of status last few days but is improved from admit last time. Placement remains a significant barrier. Will check response to anti retroviral therapy next week. 09/09/2017 continues to have significant barriers to discharge,we'll check his response to antiretroviral therapy. 09/10/2017 the patient continues to feel somewhat better. He was able to navigate the bathroom without the walker but uses a walker in the hallway. Strength seems to be improving. Mentation seems to be improving a bit also. Follow-up HIV viral load and CD4 been requested to monitor his response to his antiretroviral therapy. Hopefully will have placement in AFC home very soon. 09/11/2017 the patient is stable without new acute complaints. The CD4 count has increased no viral load is decreased to 4555 showing an excellent response to current antiretroviral therapy. This will continue. Hopefully as his HIV comes under control his encephalopathy and neuropathy will improve. There appears to be some hope that he will be place in AFC home in the near future. 09/12/2017 patient continues to have no new complaints. He is feeling better. As noted CD4 count is 428 and viral load is markedly decreased. Ativan extra response to the current therapy. Stribild will continue and hopefully will continue to have some improvements of his encephalopathy and neuropathy. Social work continues to struggle with his discharge plan. 09/13/2017 patient without new acute complaints. He has noted his are starting to have a response to the antiretroviral therapy. Before, has gone up 300 points the viral load is dropped from 2,000,000 to 4500. We'll continue current therapies and social work is diligently working on a viable discharge plan. 09/16/2017 patient is now ready for discharge home today. The patient is a 30 showing good response was antiretroviral therapy. Prescription for Stribild is provided for home treatment. Also follow-up blood work before he comes to see me in the office in 4 weeks. The importance of is taking his medications is stressed. It appears to be going to live with his grandmother at least for the next short period of time that has now been arranged since she's been able to receive some Social Security. Following the office in 4 weeks as noted blood work a week prior
--- NOTE | 2017-09-17 01:30 | P.DS ---
Providers Date of admission: 08/19/17 16:47 Expected date of discharge: 09/16/17 Attending physician: Danny Callaway MD Consults: 08/20/17 00:29 Consult Physician Routine Consulting Provider: Nawaf Miranda Consult Reason/Comments: hiv Do you want consulting provider notified?: Yes 08/22/17 10:35 Consult Physician Routine Consulting Provider: Christy Murcia Consult Reason/Comments: weakness Do you want consulting provider notified?: Yes Primary care physician: Clayton Velazquez Hospital Course: Discharge diagnosis. 1. severe HIV peripheral neuropathy. Improved. Ambulating without support. 2. Bilateral lower extremity weakness, mostly secondary to 1 above and DVT 3. HIV encephalopathy history 4. Anemia of chronic disease and 5. Acute right lower extremity DVT Hospital course This is a pleasant 27 years old male with past medical history of HIV, no entrance to treatment, he was recently hospitalized for lower extremity weakness , HIV encephalopathy possible and neuropathy, he had extensive workup at that time and his been evaluated by neurologist and ID team. patient was discharge to home in the care of his mother while his grandmother was signed as his guardian. He brought in to the emergency room last night because his mother she could not take care of him anymore related to his lower extremity weakness, however patient denies to me any other further complaints. No chest pain, dyspnea, fever, change in urine or bowel habits 08/21/2017 Patient at bedside says his weakness in the lower extremity are improving today. His guardian and guarded mother is at bedside, discussed the case with her and she states that for 3 days after his discharge last time he wasn't getting his HIV medication for no specific reason, and he lost his improvement last time he was in the hospital while he is off his medication. Weakness is improved after restarted medication as per patient On 08/23/2017 Patient failed last night and hit his head, no arthritis, no wounds, patient had some headache with now resolved. Continue with neuro check Neurology saw the patient's and recommended Neurontin and physical therapy and Doppler of lower ext, pt states to me he has pain in his both legs only when uses them and that is been going on for about 2 weeks since he is been discharged last time , his pain is the same and not progressive, while lying in bed he has no pain Patient still pending a placement 08/24/2017 Patient is still complaining of leg pain and PT OT is following. Patient is being continued on anticoagulation. Patient is pending placement at this time. No complaints of chest pain or shortness of breath. No nausea vomiting or abdominal pain. No other acute overnight issues. 08/25/2017 Patient says that his pain is better today. Able to sit in the chair. Otherwise participating in physical therapy and able to walk with a walker. Possible transfer to rehab on Saturday. 09/12/2017 Patient denied any new complaints of chest pain or shortness of breath. Patient is able to ambulate in the hallway. Awaiting placement otherwise CD4 count is 428 and viral load 4555. ID is following. 09/13/2017 Patient denied any new complaints today. ID is following. No fever no chills. Able to ambulate. Awaiting placement. 09/14/2017 Patient denied any new complaints today. No chest pain or shortness of breath. no leg swelling or pain 09/15/2017 patient denied any new complaints today. No chest pain or shortness of breath. Ambulating well in the hallway. Otherwise awaiting placement 09/16/2017 Patient denied any new complaints today. Bilateral lower action to a pain is controlled with Neurontin. Patient will be continued on anticoagulation for DVT. ID is following and recommended outpatient antiretroviral therapy as well. Otherwise patient is grandmother is willing to take him home. Patient will be discharged home in stable condition. Plan: Patient admitted to the hospital for placement, he has difficulty taking care of himself given his lower extremity weakness which is chronic, his grandmother is his guardian. continued with the same HIV treatment. Patient lower extremity weakness has improved and is able to ambulate without support.. Continue with Neurontin. on patient was continued on antiretroviral therapy as well. Antibiotic regulation for acute DVT will be continued. Otherwise patient is medically stable and was waiting for placement. Patient is grandmother is willing to take him home for short period of time until he gets Social Security. Patient is stable to be discharged home. PHYSICAL EXAMINATION: Patient is lying in the bed comfortably, no acute distress, awake alert and oriented.. HEENT: Normocephalic. Neck is supple. Pupils reactive. Nostrils clear. Oral cavity is moist. Ears reveal no drainage. Neck reveals no JVD, carotid bruits, or thyromegaly. CHEST EXAMINATION: Trachea is central. Symmetrical expansion. Lung anderson clear to auscultation and percussion. CARDIAC: Normal S1, S2 with no gallops. No murmurs ABDOMEN: Soft. Bowel sounds normal. No organomegaly. No abdominal bruits. Extremities: reveal no edema. No clubbing or cyanosis Neurologically awake, alert, oriented x3 with well-coordinated movements. No focal deficits noted Skin: No rash or skin lesions. Psychiatric: Coperative. Nonsuicidal Musculoskeletal: No joint swelling or deformity. Normal range of motion. Vital Signs - 24 hr 09/16/17 09/16/17 09/16/17 05:00 08:00 14:33 Temperature 97.6 F 97.5 F L Pulse Rate [ 77 76 Left Radial] Pulse Rate [ 72 Pulse Oximetery ] Respiratory 16 16 Rate Blood Pressure 118/67 129/75 [Left Arm] O2 Sat by Pulse 100 99 Oximetry 09/16/17 15:38 Temperature Pulse Rate [ 76 Left Radial] Pulse Rate [ Pulse Oximetery ] Respiratory 16 Rate Blood Pressure [Left Arm] O2 Sat by Pulse Oximetry Patient Condition at Discharge: Stable Plan - Discharge Summary Discharge Rx Participant: No New Discharge Prescriptions: New Apixaban [Eliquis] 5 mg PO BID #60 tab Gabapentin [Neurontin] 300 mg PO TID #90 cap Elviteg/Tracee/Emtric/Tenofo Dis [Stribild Tablet] 1 tab PO DAILY #30 tab Continue Elviteg/Tracee/Emtric/Tenofo Dis [Stribild Tablet] 1 tab PO DAILY #30 tab Nystatin 100,000 Unit/ml Susp [Mycostatin Oral Susp] 500,000 unit PO QID # 100 ml Discontinued Ibuprofen [Motrin] 400 mg PO Q6HR PRN tab PRN Reason: Mild Pain Or Fever > 100.5 Discharge Medication List Elviteg/Tracee/Emtric/Tenofo Dis [Stribild Tablet] 1 tab PO DAILY #30 tab [Rx] Nystatin 100,000 Unit/ml Susp [Mycostatin Oral Susp] 500,000 unit PO QID #100 ml 08/16/17 [Rx] Apixaban [Eliquis] 5 mg PO BID #60 tab 09/16/17 [Rx] Elviteg/Tracee/Emtric/Tenofo Dis [Stribild Tablet] 1 tab PO DAILY #30 tab [Rx] Gabapentin [Neurontin] 300 mg PO TID #90 cap 09/16/17 [Rx] Follow up Appointment(s)/Referral(s): [facility], [NON-STAFF] - 1 Week Nawaf Miranda MD [STAFF PHYSICIAN] - 10/17/17 3:45 pm (needs blood work one week before visit) Christy Murcia MD [STAFF PHYSICIAN] - 2 Weeks (Dr. Murcia's office will call patient with an appointment date and time.) Ambulatory/Diagnostic Orders: Complete Blood Count w/diff [LAB.AMB] Location: Determined By Patient Comprehensive Metabolic Panel [LAB.AMB] Location: Determined By Patient Ambulatory Miscellaneous Order [MISC.AMB] Location: Determined By Patient Patient Instructions/Handouts: Gabapentin (By mouth), Apixaban (By mouth), Weakness (GEN) Activity/Diet/Wound Care/Special Instructions: Remember to give patient his home meds back at discharge andreea parisi will be following you at time of d/c, they should be calling your guardian to set up a time to come see you. Discharge Disposition: HOME SELF-CARE
== END 2017-09-16 16:00 | disposition home or self-care (01) ==
LOC: EEVIPCON 15:38 → EC 15:38 → INTOOBSV 16:47 → 5MS5E 16:47 → UNDODISIN 09-16 16:00
PROVIDERS: ADMIT Internal Medicine; ATTEND Internal Medicine
DX: B20 Human immunodeficiency virus [HIV] disease (principal); G93.49 Other encephalopathy; G63 Polyneuropathy in diseases classified elsewhere; I82.431 Acute embolism and thrombosis of right popliteal vein; D63.8 Anemia in other chronic diseases classified elsewhere; R53.1 Weakness; F12.90 Cannabis use, unspecified, uncomplicated; R26.2 Difficulty in walking, not elsewhere classified; R73.9 Hyperglycemia, unspecified; R29.818 Other symptoms and signs involving the nervous system; R32 Unspecified urinary incontinence; Z91.19 Patient's noncompliance with other medical treatment and regimen; Z79.1 Long term (current) use of non-steroidal anti-inflammatories (NSAID); Z79.01 Long term (current) use of anticoagulants; Z79.899 Other long term (current) drug therapy; Z87.891 Personal history of nicotine dependence; Z86.718 Personal history of other venous thrombosis and embolism
CPT/HCPCS: 99284; 97116 ×15; 97110; 97530 ×9; 97162; 97535 ×16; 97167; 87536; 80048 ×5; 86360; 85025 ×5; 93970; 70450; G0378 ×29

== ENCOUNTER 2017-09-25 16:07 | Emergency (ER) | payer OTHER ==
[2017-09-25] MEDS ORDERED: SODIUM CHLORIDE 0.9% 500 ML IV STA (18:32)
--- NOTE | 2017-09-25 19:25 | ED ---
Extremity Problem HPI - General Chief complaint: Extremity Problem,Nontraumatic Stated complaint: Legs swollen Time Seen by Provider: 09/25/17 18:18 Source: patient, RN notes reviewed, old records reviewed Mode of arrival: wheelchair Limitations: no limitations - History of Present Illness Initial comments: 27-year-old male with history of HIV encephalopathy presents emergency department with increased swelling in bilateral lower extremities for 1 week. He was recently admitted and discharged from the hospital approximately one month ago. He is started on Stribold for HIV, Neurontin for lower extremity neuropathy, and Elquis for history of DVT. He reports that he's been active and using his walker. He does follow up with physical therapy and they have been helping him with ambulation. Previous admission pativamsi complained of bilateral leg pain and unable to move his lower extremity. He reports he has range of motion without difficulty, until lately with the increased swelling. Patient reports that over the past week he's gained 20 pounds due to the swelling in his legs. Normal urine output. - Related Data Previous Rx's Medication Instructions Recorded Elviteg/Tracee/Emtric/Tenofo Dis 1 tab PO DAILY #30 tab 08/05/17 [Stribild Tablet] Apixaban [Eliquis] 5 mg PO BID #60 tab 09/16/17 Gabapentin [Neurontin] 300 mg PO TID #90 cap 09/16/17 Furosemide [Lasix] 20 mg PO BID #14 tab 09/25/17 Allergies Allergy/AdvReac Type Severity Reaction Status Date / Time No Known Allergies Allergy Verified 09/25/17 18:37 Review of Systems ROS Statement: Those systems with pertinent positive or pertinent negative responses have been documented in the HPI. ROS Other: All systems not noted in ROS Statement are negative. Past Medical History Past Medical History: No Reported History Additional Past Medical History / Comment(s): hiv +, HIV encephalopathy History of Any Multi-Drug Resistant Organisms: None Reported Past Surgical History: No Surgical Hx Reported Past Psychological History: No Psychological Hx Reported Smoking Status: Never smoker Past Alcohol Use History: None Reported Past Drug Use History: Marijuana - Past Family History Mother History Unknown: Yes General Exam - General Exam Comments Initial Comments: 27-year-old male. Alert and oriented. No significant distress. Limitations: no limitations General appearance: alert, in no apparent distress Head exam: Present: atraumatic, normocephalic, normal inspection Eye exam: Present: normal appearance, PERRL, EOMI. Absent: scleral icterus, conjunctival injection, periorbital swelling ENT exam: Present: normal exam, mucous membranes moist Neck exam: Present: normal inspection. Absent: tenderness, meningismus, lymphadenopathy Respiratory exam: Present: normal lung sounds bilaterally. Absent: respiratory distress, wheezes, rales, rhonchi, stridor Cardiovascular Exam: Present: regular rate, normal rhythm, normal heart sounds. Absent: systolic murmur, diastolic murmur, rubs, gallop, clicks GI/Abdominal exam: Present: soft, normal bowel sounds. Absent: distended, tenderness, guarding, rebound, rigid Extremities exam: Present: full ROM, normal capillary refill, pedal edema (4+ pedal edema bilaterally.), other (No bruising. Normal pulses bilaterally. Full range of motion of the toes and legs.). Absent: normal inspection, tenderness, joint swelling, calf tenderness Back exam: Present: normal inspection Neurological exam: Present: alert, oriented X3, CN II-XII intact Psychiatric exam: Present: normal affect, normal mood Skin exam: Present: warm, dry, intact, normal color. Absent: rash Course Vital Signs 09/25/17 09/25/17 16:35 21:04 Temperature 98 F 98.5 F Pulse Rate 76 77 Respiratory 16 18 Rate Blood Pressure 130/85 135/86 O2 Sat by Pulse 99 97 Oximetry Medical Decision Making - Medical Decision Making 27-year-old male with history of HIV presents emergency Department with bilateral lower extremity swelling worsening over the past week. Assessment of DVT and is currently on Elavil. Patient's lungs are clear to auscultation. Denies any chest pain or shortness of breath. He has 4+ pitting edema bilaterally. No pain or tenderness of the calf. X-ray of the chest was reviewed and normal. Patient's labwork was reviewed and unremarkable. Normal BNP. Patient's kidney function was reviewed and normal. Patient US are negative for DVT. Patient case discussed with Dr. Watt, will start patient on lasix for edema, and follow up with PCP. Discussed REturn parameters. Patient agrees to treatment plan and will comply. - Lab Data Result diagrams: 09/25/17 18:55 09/25/17 18:55 Lab Results 09/25/17 09/25/17 09/25/17 Range/Units 18:55 18:55 18:55 WBC 5.2 (3.8-10.6) k/uL RBC 3.72 L (4.30-5.90) m/uL Hgb 12.0 L (13.0-17.5) gm/dL Hct 36.1 L (39.0-53.0) % MCV 97.0 (80.0-100.0) fL MCH 32.3 (25.0-35.0) pg MCHC 33.3 (31.0-37.0) g/dL RDW 15.5 (11.5-15.5) % Plt Count 256 (150-450) k/uL Neutrophils % 58 % Lymphocytes % 29 % Monocytes % 8 % Eosinophils % 2 % Basophils % 1 % Neutrophils # 3.0 (1.3-7.7) k/uL Lymphocytes # 1.5 (1.0-4.8) k/uL Monocytes # 0.4 (0-1.0) k/uL Eosinophils # 0.1 (0-0.7) k/uL Basophils # 0.0 (0-0.2) k/uL PT (9.0-12.0) sec INR (<1.2) APTT (22.0-30.0) sec Sodium 140 (137-145) mmol/L Potassium 5.2 H (3.5-5.1) mmol/L Chloride 100 (98-107) mmol/L Carbon Dioxide 28 (22-30) mmol/L Anion Gap 12 mmol/L BUN 13 (9-20) mg/dL Creatinine 0.90 (0.66-1.25) mg/dL Est GFR (CKD-EPI)AfAm >90 (>60 ml/min/1.73 sqM) Est GFR (CKD-EPI)NonAf >90 (>60 ml/min/1.73 sqM) Glucose 96 (74-99) mg/dL Calcium 9.4 (8.4-10.2) mg/dL Magnesium 1.9 (1.6-2.3) mg/dL Total Bilirubin 1.0 (0.2-1.3) mg/dL AST 55 (17-59) U/L ALT 30 (21-72) U/L Alkaline Phosphatase 104 (38-126) U/L Total Creatine Kinase 132 (55-170) U/L CK-MB (CK-2) 1.0 (0.0-2.4) ng/mL CK-MB (CK-2) Rel Index 0.8 Troponin I 0.021 (0.000-0.034) ng/mL NT-Pro-B Natriuret Pep pg/mL Total Protein 8.2 (6.3-8.2) g/dL Albumin 4.2 (3.5-5.0) g/dL Urine Color Urine Appearance (Clear) Urine pH (5.0-8.0) Ur Specific [place] (1.001-1.035) Urine Protein (Negative) Urine Glucose (UA) (Negative) Urine Ketones (Negative) Urine Blood (Negative) Urine Nitrite (Negative) Urine Bilirubin (Negative) Urine Urobilinogen (<2.0) mg/dL Ur Leukocyte Esterase (Negative) 09/25/17 09/25/17 09/25/17 Range/Units 18:55 18:55 20:29 WBC (3.8-10.6) k/uL RBC (4.30-5.90) m/uL Hgb (13.0-17.5) gm/dL Hct (39.0-53.0) % MCV (80.0-100.0) fL MCH (25.0-35.0) pg MCHC (31.0-37.0) g/dL RDW (11.5-15.5) % Plt Count (150-450) k/uL Neutrophils % % Lymphocytes % % Monocytes % % Eosinophils % % Basophils % % Neutrophils # (1.3-7.7) k/uL Lymphocytes # (1.0-4.8) k/uL Monocytes # (0-1.0) k/uL Eosinophils # (0-0.7) k/uL Basophils # (0-0.2) k/uL PT 10.0 (9.0-12.0) sec INR 1.0 (<1.2) APTT 24.9 (22.0-30.0) sec Sodium (137-145) mmol/L Potassium (3.5-5.1) mmol/L Chloride (98-107) mmol/L Carbon Dioxide (22-30) mmol/L Anion Gap mmol/L BUN (9-20) mg/dL Creatinine (0.66-1.25) mg/dL Est GFR (CKD-EPI)AfAm (>60 ml/min/1.73 sqM) Est GFR (CKD-EPI)NonAf (>60 ml/min/1.73 sqM) Glucose (74-99) mg/dL Calcium (8.4-10.2) mg/dL Magnesium (1.6-2.3) mg/dL Total Bilirubin (0.2-1.3) mg/dL AST (17-59) U/L ALT (21-72) U/L Alkaline Phosphatase (38-126) U/L Total Creatine Kinase (55-170) U/L CK-MB (CK-2) (0.0-2.4) ng/mL CK-MB (CK-2) Rel Index Troponin I (0.000-0.034) ng/mL NT-Pro-B Natriuret Pep 65 pg/mL Total Protein (6.3-8.2) g/dL Albumin (3.5-5.0) g/dL Urine Color Light Yellow Urine Appearance Clear (Clear) Urine pH 7.0 (5.0-8.0) Ur Specific [place] 1.006 (1.001-1.035) Urine Protein Negative (Negative) Urine Glucose (UA) Negative (Negative) Urine Ketones Negative (Negative) Urine Blood Negative (Negative) Urine Nitrite Negative (Negative) Urine Bilirubin Negative (Negative) Urine Urobilinogen <2.0 (<2.0) mg/dL Ur Leukocyte Esterase Negative (Negative) 09/25/17 19:26 EKG performed at 1859 shows sinus rhythm with first-degree AV block. Lobe which QRS. Nonspecific ST abnormality. Abnormal EKG. Ventricular rate of 70 bpm. Was 214 ms. QRS ration 80 form of seconds. QT QTc is 48/440 ms. - Radiology Data Radiology results: report reviewed Chest x-ray was normal. No acute changes. Her son about lower lower extremity's are negative for DVT. Disposition Clinical Impression: Bilateral edema of lower extremity Disposition: HOME SELF-CARE Condition: Good Instructions: Leg Edema (ED) Additional Instructions: Patient has a follow-up with primary care provider. Keep the leg up and elevated. Take the medication as prescribed. Return to emergency department if any alarming signs or symptoms occur. Prescriptions: Furosemide [Lasix] 20 mg PO BID #14 tab Is patient prescribed a controlled substance at d/c from ED?: No When asked, does pt state using other controlled substances?: No If prescribed controlled substance>3 days was MAPS reviewed?: No If opioid is for acute pain is fill amount 7 days or less?: No If Rx opioid, was Start Talking consent form obtained?: No Referrals: Almita Valle MD [Primary Care Provider] - 1-2 days Time of Disposition: 20:43
[2017-09-25 19:26] LABS: Albumin 4.2 g/dL (3.5-5.0); Anion Gap 12 mmol/L; Calcium 9.4 mg/dL (8.4-10.2); Carbon Dioxide 28 mmol/L (22-30); Chloride 100 mmol/L (98-107); Glucose 96 mg/dL (74-99); Sodium 140 mmol/L (137-145); Total Protein 8.2 g/dL (6.3-8.2)
[2017-09-25 19:27] LABS: ALT 30 U/L (21-72); AST 55 U/L (17-59); Alkaline Phosphatase 104 U/L (38-126); Blood Urea Nitrogen 13 mg/dL (9-20); Magnesium 1.9 mg/dL (1.6-2.3); Potassium 5.2 mmol/L (3.5-5.1)
[2017-09-25 19:30] LABS: Basophils % (A) 1 %; Eosinophils # (A) 0.1 k/uL (0-0.7); Eosinophils % (A) 2 %; HCT 36.1 % (39.0-53.0); Lymphocytes # (A) 1.5 k/uL (1.0-4.8); Lymphocytes % (A) 29 %; MCH 32.3 pg (25.0-35.0); MCHC 33.3 g/dL (31.0-37.0); Mean Platelet Volume 8.4; Monocytes # (A) 0.4 k/uL (0-1.0); Monocytes % (A) 8 %; Neutrophils % (A) 58 %; Platelet Count 256 k/uL (150-450); RBC 3.72 m/uL (4.30-5.90); RDW 15.5 % (11.5-15.5); WBC 5.2 k/uL (3.8-10.6)
[2017-09-25 19:37] LABS: Partial Thromboplastin Time 24.9 sec (22.0-30.0)
[2017-09-25 19:43] LABS: Troponin I 0.021 ng/mL (0.000-0.034)
--- NOTE | 2017-09-25 19:48 | XR ---
EXAMINATION TYPE: XR chest 2V DATE OF EXAM: 09/25/2017 COMPARISON: 08/06/2017 HISTORY: Chest pain TECHNIQUE: Frontal and lateral views of the chest are obtained. FINDINGS: Heart and mediastinum are normal. Lungs are clear. Diaphragm is normal. Bony thorax is int act. IMPRESSION: Normal chest. No change.
--- NOTE | 2017-09-25 20:27 | US ---
EXAMINATION TYPE: US venous doppler duplex LE BI DATE OF EXAM: 09/25/2017 8:16 PM COMPARISON: 08/23/2017 CLINICAL HISTORY: Pain. Bilateral pain and swelling. SIDE PERFORMED: Bilateral TECHNIQUE: The lower extremity deep venous system is examined utilizing real time linear array sonog karen with graded compression, doppler sonography and color-flow sonography. VESSELS IMAGED: External Iliac Vein (EIV) Common Femoral Vein Deep Femoral Vein Greater Saphenous Vein * Femoral Vein Popliteal Vein Small Saphenous Vein * Proximal Calf Veins (* superficial vessels) Right Leg: Negative for DVT Good color flow and compression in distal Popliteal Vein since previous study. Left Leg: Negative for DVT IMPRESSION: There is clearing of the thrombus in the right popliteal vein compared to old exam. No e vidence of deep venous thrombosis in both legs.
[2017-09-25 20:38] LABS: Appearance,Urine Clear (Clear); Bilirubin,Urine Negative (Negative); Blood,Urine Negative (Negative); Color,Urine Light Yellow; Glucose,Urine (UA) Negative (Negative); Ketones,Urine Negative (Negative); Leukocyte Esterase,Urine Negative (Negative); Nitrite,Urine Negative (Negative); Protein,Urine Negative (Negative); Specific Gravity,Urine 1.006 (1.001-1.035); Urobilinogen,Urine <2.0 mg/dL (<2.0)
[2017-09-25] MEDS ORDERED: FUROSEMIDE 40 MG TAB PO STA (20:44)
[2017-09-25 21:05] VITALS: BP 135/86; PULSE 77; RESP 18; TEMP 98.5
== END 2017-09-25 21:06 | disposition home or self-care (01) ==
LOC: EC 16:07
DX: R60.0 Localized edema (principal); G62.9 Polyneuropathy, unspecified; Z86.718 Personal history of other venous thrombosis and embolism; Z53.20 Procedure and treatment not carried out because of patient's decision for unspecified reasons; Z21 Asymptomatic human immunodeficiency virus [HIV] infection status
CPT/HCPCS: 36415; 71046; 80053; 81003; 82550; 82553; 83735; 83880; 84484; 85025; 85610; 85730; 93005; 93970; 99284

== ENCOUNTER → 2017-10-03 | Outpatient (CLI) | payer OTHER ==
[2017-10-03 12:12] LABS: Basophils % (A) 1 %; Eosinophils # (A) 0.1 k/uL (0-0.7); Eosinophils % (A) 1 %; HCT 35.3 % (39.0-53.0); HGB 11.4 gm/dL (13.0-17.5); Lymphocytes # (A) 2.2 k/uL (1.0-4.8); Lymphocytes % (A) 44 %; MCH 32.1 pg (25.0-35.0); MCHC 32.3 g/dL (31.0-37.0); MCV 99.4 fL (80.0-100.0); Macrocytosis Slight; Mean Platelet Volume 7.2; Monocytes # (A) 0.3 k/uL (0-1.0); Monocytes % (A) 7 %; Neutrophils # (A) 2.2 k/uL (1.3-7.7); Neutrophils % (A) 43 %; Platelet Count 300 k/uL (150-450); RBC 3.55 m/uL (4.30-5.90); RDW 15.1 % (11.5-15.5); WBC 5.1 k/uL (3.8-10.6)
[2017-10-03 12:37] LABS: ALT 49 U/L (21-72); AST 56 U/L (17-59); Albumin 4.2 g/dL (3.5-5.0); Alkaline Phosphatase 107 U/L (38-126); Anion Gap 11 mmol/L; Blood Urea Nitrogen 17 mg/dL (9-20); Calcium 9.5 mg/dL (8.4-10.2); Carbon Dioxide 30 mmol/L (22-30); Chloride 100 mmol/L (98-107); Cholesterol 143 mg/dL (<200); Glucose 83 mg/dL (74-99); HDL Cholesterol 40 mg/dL (40-60); LDL Cholesterol,Calculated 84 mg/dL (0-99); Potassium 4.5 mmol/L (3.5-5.1); Sodium 141 mmol/L (137-145); Total Bilirubin 0.3 mg/dL (0.2-1.3); Total Protein 8.5 g/dL (6.3-8.2); Triglycerides 96 mg/dL (<150)
[2017-10-03 16:11] LABS: Iron Saturation 15.24 (15.00-50.00)
[2017-10-03 16:40] LABS: Folate, Serum >24.0 ng/mL
[2017-10-03 20:07] LABS: Hemoglobin A1C 5.1 % (4.0-6.0)
[2017-10-04 13:46] LABS: HIV-1 RNA DETECTED (Not detected)
== END | disposition home or self-care (01) ==
LOC: LABWHC1 11:11
PROVIDERS: ATTEND Internal Medicine Infectious Disease
DX: B20 Human immunodeficiency virus [HIV] disease (principal); F41.8 Other specified anxiety disorders; G89.29 Other chronic pain; M25.571 Pain in right ankle and joints of right foot; M25.572 Pain in left ankle and joints of left foot; R22.43 Localized swelling, mass and lump, lower limb, bilateral; Z86.718 Personal history of other venous thrombosis and embolism
CPT/HCPCS: 36415; 80053; 80061; 82607; 82728; 82746; 83036; 83540; 83550; 84443; 85025; 87536

== ENCOUNTER 2017-11-09 11:16 | Inpatient (IN) | payer MEDICAID, OTHER ==
--- NOTE | 2017-11-09 11:48 | ED ---
General Adult HPI - General Chief complaint: Psychiatric Symptoms Stated complaint: Mental Health Time Seen by Provider: 11/09/17 11:22 Source: patient, RN notes reviewed, old records reviewed Mode of arrival: EMS Limitations: no limitations - History of Present Illness Initial comments: 27-year-old male brought in for suicidal remarks and depression. Patient was petitioned by his grandmother who is his primary caregiver and guardian. Patient is complaining of suicidal thoughts the time my evaluation although he has no specific plan. He states he would be better off . Denies any ingestion today. Denies any pain complaints. His speech is somewhat rapid and incoherent. He does state that his older brother commit suicide with a shotgun several years ago. - Related Data Home Medications Medication Instructions Recorded Confirmed Ferrous Sulfate [Feosol] 325 mg PO DAILY 11/09/17 11/09/17 Gabapentin [Neurontin] 300 mg PO BID@09,16 11/09/17 11/09/17 Gabapentin [Neurontin] 600 mg PO HS@21 11/09/17 11/09/17 Triamterene-Hctz 37.5-25Mg 1 cap PO DAILY 11/09/17 11/09/17 [Dyazide 37.5-25 Capsule] Previous Rx's Medication Instructions Recorded Elviteg/Tracee/Emtric/Tenofo Dis 1 tab PO DAILY #30 tab 08/05/17 [Stribild Tablet] Apixaban [Eliquis] 5 mg PO BID #60 tab 09/16/17 Allergies Allergy/AdvReac Type Severity Reaction Status Date / Time No Known Allergies Allergy Verified 11/09/17 13:05 Review of Systems ROS Statement: Those systems with pertinent positive or pertinent negative responses have been documented in the HPI. ROS Other: All systems not noted in ROS Statement are negative. Past Medical History Past Medical History: No Reported History Additional Past Medical History / Comment(s): hiv +, HIV encephalopathy History of Any Multi-Drug Resistant Organisms: None Reported Past Surgical History: No Surgical Hx Reported Past Psychological History: No Psychological Hx Reported Smoking Status: Never smoker Past Alcohol Use History: None Reported Past Drug Use History: Marijuana - Past Family History Mother History Unknown: Yes General Exam Limitations: no limitations General appearance: alert, in no apparent distress Head exam: Present: atraumatic, normocephalic Eye exam: Present: normal appearance, PERRL, EOMI ENT exam: Present: normal exam Neck exam: Present: normal inspection. Absent: tenderness, meningismus Respiratory exam: Present: normal lung sounds bilaterally. Absent: respiratory distress, wheezes Cardiovascular Exam: Present: regular rate, normal rhythm GI/Abdominal exam: Present: soft. Absent: distended, tenderness Extremities exam: Present: normal inspection, normal capillary refill. Absent: pedal edema Back exam: Present: normal inspection, full ROM Neurological exam: Present: alert, oriented X3, CN II-XII intact. Absent: motor sensory deficit Psychiatric exam: Present: depressed, agitated, manic, suicidal ideation Skin exam: Present: warm, dry, intact. Absent: cyanosis, diaphoretic Course Vital Signs 11/09/17 11:19 Temperature 97.9 F Pulse Rate 83 Respiratory 16 Rate Blood Pressure 157/78 O2 Sat by Pulse 98 Oximetry Medical Decision Making - Medical Decision Making Patient evaluated by EPS, does need for inpatient treatment. He will be admitted to this institution. I was able to complete a clinical certification for this patient. - Lab Data Lab Results 11/09/17 Range/Units 11:41 Urine Opiates Screen Not Detected (NotDetected) Ur Oxycodone Screen Not Detected (NotDetected) Urine Methadone Screen Not Detected (NotDetected) Ur Propoxyphene Screen Not Detected (NotDetected) Ur Barbiturates Screen Not Detected (NotDetected) U Tricyclic Antidepress Not Detected (NotDetected) Ur Phencyclidine Scrn Not Detected (NotDetected) Ur Amphetamines Screen Not Detected (NotDetected) U Methamphetamines Scrn Not Detected (NotDetected) U Benzodiazepines Scrn Not Detected (NotDetected) Urine Cocaine Screen Not Detected (NotDetected) U Marijuana (THC) Screen Detected H (NotDetected) Disposition Clinical Impression: Depression, Suicidal ideation Disposition: ADMITTED IP TO THIS [facility] Condition: Stable Is patient prescribed a controlled substance at d/c from ED?: No Referrals: None,Stated [Primary Care Provider] - 1-2 days Decision to Admit Reason: Admit from EC Decision Date: 11/09/17 Decision Time: 13:45
[2017-11-09 12:32] LABS: Amphetamine Screen,Urine Not Detected (NotDetected); Barbiturate Screen,Urine Not Detected (NotDetected); Benzodiazepines Screen,Urine Not Detected (NotDetected); Cocaine Screen,Urine Not Detected (NotDetected); Methadone Screen, Urine Not Detected (NotDetected); Opiate Screen,Urine Not Detected (NotDetected); Oxycodone Screen, Urine Not Detected (NotDetected); Phencyclidine Screen,Urine Not Detected (NotDetected); Tricyclic Antidepressant,Urine Not Detected (NotDetected); Urn Cannabinoid Scrn Detected (NotDetected)
[2017-11-09] MEDS ORDERED: ZIPRASIDONE 20 MG VIAL IM PRN (14:45)
[2017-11-09] MEDS ORDERED: MAGNESIUM HYDROXIDE 2,400 MG/10 ML CUP PO PRN (14:45)
[2017-11-09] MEDS ORDERED: MAG HYDROX/AL HYDROX/SIMETH 30 ML CUP PO PRN (14:45)
[2017-11-09] MEDS ORDERED: LORazepam 2 MG/ML INJ IM PRN (14:52)
[2017-11-09] MEDS: GABAPENTIN 300 MG CAP PO SCH ×3 (16:52→20:49)
[2017-11-09] MEDS: APIXABAN 5 MG TAB PO SCH (20:58)
[2017-11-10] MEDS: ACETAMINOPHEN TAB 325 MG TAB PO PRN ×2 (00:13→23:11)
[2017-11-10] MEDS: LORazepam 1 MG TAB PO PRN (00:13)
[2017-11-10 08:50] LABS: ALT 29 U/L (21-72); AST 37 U/L (17-59); Albumin 4.3 g/dL (3.5-5.0); Alkaline Phosphatase 91 U/L (38-126); Anion Gap 10 mmol/L; Bilirubin, Delta 0.2 mg/dL (0.0-0.2); Bilirubin,Unconjugated 0.1 mg/dL (0.0-1.1); Blood Urea Nitrogen 17 mg/dL (9-20); Carbon Dioxide 27 mmol/L (22-30); Chloride 105 mmol/L (98-107); Glucose 88 mg/dL (74-99); Potassium 4.4 mmol/L (3.5-5.1); Sodium 142 mmol/L (137-145); Total Bilirubin 0.3 mg/dL (0.2-1.3); Total Protein 8.5 g/dL (6.3-8.2)
[2017-11-10 08:54] LABS: Basophils % (A) 1 %; Eosinophils # (A) 0.1 k/uL (0-0.7); Eosinophils % (A) 2 %; HCT 42.2 % (39.0-53.0); HGB 13.6 gm/dL (13.0-17.5); Lymphocytes # (A) 1.8 k/uL (1.0-4.8); Lymphocytes % (A) 32 %; MCH 31.6 pg (25.0-35.0); MCHC 32.2 g/dL (31.0-37.0); MCV 98.2 fL (80.0-100.0); Mean Platelet Volume 6.6; Monocytes # (A) 0.5 k/uL (0-1.0); Monocytes % (A) 8 %; Neutrophils % (A) 54 %; Platelet Count 338 k/uL (150-450); RBC 4.29 m/uL (4.30-5.90); WBC 5.4 k/uL (3.8-10.6)
[2017-11-10] MEDS: FERROUS SULFATE 325 MG TAB PO SCH (09:01)
[2017-11-10] MEDS: STRIBILD PO SCH (09:02)
[2017-11-10] MEDS: APIXABAN 5 MG TAB PO SCH ×2 (09:02→20:32)
[2017-11-10] MEDS: TRIAMTERENE PO SCH (09:02)
[2017-11-10] MEDS: HYDROCHLOROTHIAZIDE PO SCH (09:02)
--- NOTE | 2017-11-10 13:31 | P.CONS ---
Review of Systems this is a pleasant 27 yo M with pmh of HIV on medication , DVT on eliquis, and b /l lower ext neuropathy, case is known to me from previous admission to this hospital in previous months he presents this time to the psych unit for depressive signs and symptoms with suicidal ideation and has been managed by the psych team. We were consulted for medical management. Patient is seen and examined by me and he is on the wheelchair, patient denies chest pain, no dyspnea. No change in urine or bowel habits. No fever. Patient confirms to me he is compliant adherent to his treatment and including HIV medication and liquids. Patient states that his lower extremity weakness is improving slowly with physical therapy and he has the intension to pursue that Past Medical History Past Medical History: No Reported History Additional Past Medical History / Comment(s): hiv +, HIV encephalopathy History of Any Multi-Drug Resistant Organisms: None Reported Past Surgical History: No Surgical Hx Reported Past Anesthesia/Blood Transfusion Reactions: No Reported Reaction Past Psychological History: No Psychological Hx Reported Smoking Status: Never smoker Past Alcohol Use History: None Reported Past Drug Use History: Marijuana - Past Family History Mother History Unknown: Yes Medications and Allergies Home Medications Medication Instructions Recorded Confirmed Type Elviteg/Tracee/Emtric/Tenofo Dis 1 tab PO DAILY #30 tab 08/05/17 11/09/17 Rx [Stribild Tablet] Apixaban [Eliquis] 5 mg PO BID #60 tab 09/16/17 11/09/17 Rx Ferrous Sulfate [Feosol] 325 mg PO DAILY 11/09/17 11/09/17 History Gabapentin [Neurontin] 300 mg PO BID@09,16 11/09/17 11/09/17 History Gabapentin [Neurontin] 600 mg PO HS@21 11/09/17 11/09/17 History Triamterene-Hctz 37.5-25Mg 1 cap PO DAILY 11/09/17 11/09/17 History [Dyazide 37.5-25 Capsule] Allergies Allergy/AdvReac Type Severity Reaction Status Date / Time No Known Allergies Allergy Verified 11/09/17 13:05 Physical Exam Vitals: Vital Signs Temp Pulse Pulse Resp BP BP Pulse Ox 11/10/17 09:59 68 18 113/74 100 11/10/17 06:45 98.2 F 73 16 123/67 11/09/17 15:56 68 18 113/74 100 11/09/17 14:42 97.8 F 78 16 155/70 98 Intake and Output 11/09/17 11/10/17 11/10/17 22:59 06:59 14:59 Other: Weight 117.3 kg Results CBC & Chem 7: 11/10/17 08:12 11/10/17 08:12 Labs: Abnormal Lab Results - Last 24 Hours (Table) 11/10/17 11/10/17 Range/Units 08:12 08:12 RBC 4.29 L (4.30-5.90) m/uL Total Protein 8.5 H (6.3-8.2) g/dL Assessment and Plan Assessment: History of HIV, on HIV medication History of DVT, on ELIQUIS Bilateral lower weakness, mostly secondary to peripheral neuropathy versus HIV neuropathy Beckie improving as per patient Depression, suicidal ideation and other sac illnesses, management as per primary sites team History of hypertension Plan: Continue with the same treatment. Continue symptomatic treatment. Resume home medication. His blood pressure on home however his blood pressure is acceptable. Resume his HIV medication, resume his liquids. Patient states he is going for her to these therapy. GI and DVT prophylaxis. Management of sac illness as per primary team. We recommend the patient follow up with his PCP in one week after discharge Thank you for your consult Please feel free to contact us for any further clarification or questions
--- NOTE | 2017-11-10 14:10 | HP ---
HISTORY AND PHYSICAL DATE OF SERVICE: November 10, 2017. CHIEF COMPLAINT: Suicidal ideation. HISTORY OF PRESENT ILLNESS: Mr. Franck Diggs is a 27 years of age, single male with significant past psych history of mood disorder and developmental delay admitted here through the ER secondary to worsening agitation, depression and suicidal ideation. Reportedly, he has been brought in by his grandmother who is the primary guardian and caregiver for him for the last few months. Prior to that, he was under care of his mother who moved out of [place], so he is now living with his grandmother. He stated that he is sick and tired of living with his grandmother and she is controlling and he does not like the way she wants him to stay. He has stopped taking his HIV medication as he said he does not want to live anymore. He keeps repeating his brother who got killed, who finished suicide by shooting himself with a gun. He stated he should have done the same. He reports hearing voices, seeing things off and on, but at this time he denies any. He is very frustrated and upset. He said he does not need to be here and it has to be his grandmother that should be here. He endorses severe anhedonia, irritability, anger outburst, agitation, sleep difficulties, moodiness, feeling hopeless, helpless, and having thoughts about hurting himself. He reports having thoughts about hurting himself in the past, but never attempted. PAST PSYCH HISTORY: Significant for mood disorder. He is not taking any medications at this time, though he has been seen by a psychiatrist and psychologist. PAST MEDICAL HISTORY: Significant for HIV. We just resumed his medications. ALLERGIES: No known drug allergies. FAMILY PSYCH HISTORY: His brother was diagnosed with bipolar, who committed suicide. PERSONAL SOCIAL: Patient reports he was born in [place], [place]. He was raised by his biological mother. He was slow learner. He was in special classes. He made it up to senior then dropped out. He denies any kind of abuse growing up. For the last few months, he has been under care of his grandmother, who he has been living with. His brother shot himself, killed. He does not know about his biological father but his step dad not long ago. He reports anger issues for a long time. LEGAL HISTORY: None. SOCIAL HISTORY: Patient reports smoking marijuana here and there. MENTAL STATUS EXAMINATION: Patient is 27 years of age male sitting in a wheelchair as he reports that due to HIV it hurt his back. He is loud, hyperverbal, minimally interactive at times. Made fair eye contact. Mood irritable, angry with congruent affect. He has suicidal ideation but feels safe on the unit. He denies any homicidal ideation. He has auditory hallucinations, but at present he is not responding to any. He is paranoid, delusional. His memory is somewhat impaired in short term; long-term memory intact. He can name the objects. He can follow 2 step commands. Intellect is below average. Abstract reasoning is intact. Insight is poor. Judgment is poor as the patient is suicidal. ASSESSMENT: Bipolar disorder type 1, most recent episode depression with psychotic features. AXIS II: [id number] cognitive and developmental delay. AXIS III: HIV. AXIS IV: Poor coping skills. AXIS V: Global assessment of functioning at the time of interview is 20. ASSESSMENT AND PLAN: The patient is seen, interviewed and found having lot of mood swings, anger outbursts and agitation. Patient has been noncompliant on his HIV medications and possibly on psychotropic though I do not see that he has taken any medication recently. His living situation is not good and he is upset about it. The plan is we would start him on Abilify 2 mg to help with the mood stabilization and Celexa 20 mg and adjust it according. Encourage to attend groups and meetings. Support therapy provided. MMODL / IJN: [id number] /
[2017-11-10] MEDS: CITALOPRAM HYDROBROMIDE 20 MG TAB PO SCH ×2 (15:05→15:42)
[2017-11-10] MEDS: ARIPiprazole 2 MG TAB PO SCH ×2 (15:05→15:43)
[2017-11-10] MEDS: GABAPENTIN 300 MG CAP PO SCH ×2 (15:42→20:33)
[2017-11-11] MEDS: ARIPiprazole 2 MG TAB PO SCH (08:22)
[2017-11-11] MEDS: CITALOPRAM HYDROBROMIDE 20 MG TAB PO SCH (08:22)
[2017-11-11] MEDS: STRIBILD PO SCH (08:23)
[2017-11-11] MEDS: GABAPENTIN 300 MG CAP PO SCH ×3 (08:23→20:40)
[2017-11-11] MEDS: APIXABAN 5 MG TAB PO SCH ×2 (08:23→21:15)
[2017-11-11] MEDS: FERROUS SULFATE 325 MG TAB PO SCH (08:23)
[2017-11-11] MEDS: HYDROCHLOROTHIAZIDE PO SCH (08:24)
[2017-11-11] MEDS: TRIAMTERENE PO SCH (08:24)
--- NOTE | 2017-11-11 12:56 | P.PN ---
Progress Note - Text Progress Note Date: 11/11/17 Interval History: Patient is a 27-year-old male who was seen today, he is using a wheelchair due to a peripheral neuropathy. Patient states that he is wanting to leave the hospital. Patient then began talking about his brother who completed suicide in the past, began crying becoming quite tearful about being burgos, having HIV and states that he doesn't want to be J and wanted to give up and once the HIV to kill him. Patient denied that he was hearing voices currently and states that he had been living with his grandmother before this admission. He states he has been compliant with his medications for HIV since his most recent discharge from the medical floor. Mental Status:Appearance/Attitude: Patient is casually dressed, sitting in a wheelchair makes intermittent eye contact and was superficially cooperative Behavior: Patient did not exhibit any psychomotor agitation or retardation, however one point became extremely hysterical crying and sobbing Speech/Language: Patient's speech was spontaneous of normal volume and rhythm and he was coherent Thought Process: Patient was goal-directed but at times would become tangential speaking about HIV, his brother's suicide, then being burgos Thought Content: Patient did not report any current auditory hallucinations no visual hallucinations and denied any delusional or paranoid ideation and none was elicited. Patient was hysterically crying at one point talking about not wanting to be burgos, having HIV stating that he wanted the HIV to kill him as well as talking about his brother's suicide in the past. Patient felt that he was ready for discharge. Suicidal/Homicidal Ideation: Patient at one point stated he wanted the HIV to kill him and then stated he wasn't suicidal and denied any current homicidal ideation Sensorium/Cognition: Patient is alert and oriented to person and situation further testing was not done today due to the patient not being able to cooperate Mood/Affect: Patient's mood was labile 1 minute crying hysterically and then calmly speaking to me and his affect was appropriate to his mood Insight/Judgment: Patient's insight and judgment are limited Assessment: In reviewing this patient's prior admissions patient apparently was diagnosed with HIV in 2008 and had not received any treatment up until his most recent admissions to the medical floor, after the discharge on one occasion he did not comply with his HIV medications and his peripheral neuropathy and leg pain increase, patient was admitted again started on his medications and states that he's been compliant. An MRI done at that time revealed that the patient shows moderate diffuse atrophy as well as diffuse white matter disease. Patient states that he been treated as a child for anger management. Patient is currently labile and mood going from being calm and cooperative to the becoming hysterical and not being able to respond to questions. Patient at one point voiced he wanted the HIV to kill him and then stated he wasn't suicidal. He could not tell me if he was hearing voices today or not. Plan: Patient continue on Abilify 2 mg daily, Celexa 20 mg daily. Patient was diagnosed with HIV encephalopathy on a prior admission, as well as a peripheral neuropathy and had been receiving physical therapy at home twice a week. Patient apparently has not been treated for his HIV illness until most recently in July when he was admitted here after he was complaining of difficulty walking and leg pain. Patient was diagnosed with HIV in 2008. Patient requires hospitalization to further stabilize his mood, patient does have a guardian.
[2017-11-11] MEDS: LORazepam 1 MG TAB PO PRN (22:51)
[2017-11-11] MEDS: ACETAMINOPHEN TAB 325 MG TAB PO PRN (22:51)
[2017-11-12] MEDS: CITALOPRAM HYDROBROMIDE 20 MG TAB PO SCH (09:07)
[2017-11-12] MEDS: ARIPiprazole 2 MG TAB PO SCH (09:07)
[2017-11-12] MEDS: FERROUS SULFATE 325 MG TAB PO SCH (09:07)
[2017-11-12] MEDS: TRIAMTERENE PO SCH (09:09)
[2017-11-12] MEDS: HYDROCHLOROTHIAZIDE PO SCH (09:09)
[2017-11-12] MEDS: APIXABAN 5 MG TAB PO SCH ×2 (09:10→20:36)
[2017-11-12] MEDS: STRIBILD PO SCH (09:10)
[2017-11-12] MEDS: GABAPENTIN 300 MG CAP PO SCH ×3 (09:11→20:36)
--- NOTE | 2017-11-12 12:49 | P.PN ---
Progress Note - Text Progress Note Date: 11/12/17 Interval History: Patient is a 27-year-old male is seen today, he continues to use a wheelchair as stated he was able to get up and walk into the office from the hallway. Patient states that he is not feeling as tearful today and states that he is not as upset. He states that he spoke with his grandmother recently on the phone and I went well. Patient's daughter is using a walker at home. Patient reported that he finally any suicidal thoughts in the longer feeling depressed and states his IV any side effects from the medication. He states that he isn't as upset today because he couldn't tell me why that changed. Mental Status: Appearance/Attitude: Patient is casually dressed, sitting in a chair was able to walk from the office doorway into the office to sit from his wheelchair. Patient made eye contact and was cooperative Behavior: Patient did not exhibit any psychomotor agitation or retardation. Patient at times would turn his head to the side when responding to a question and continued talking. Speech/Language: Patient's speech was spontaneous of normal volume and rhythm and he was coherent Thought Process: Patient was goal-directed, no evidence of loose association or flight of ideas. Thought Content: Patient denies any auditory or visual hallucinations and no delusions or paranoid ideation were elicited. Patient states that he is not as upset today, states that he is not feeling as tearful and no longer having crying spells. Patient states he spoke with his grandmother on the phone and it went well. Suicidal/Homicidal Ideation: Patient denied any current suicidal or homicidal ideation Sensorium/Cognition: Patient is alert and oriented to person, place, and time Mood/Affect: Patient's mood today was less labile however his affect at times remains inappropriate he was smiling and laughing Insight/Judgment: Patient's insight and judgment are limited Assessment: Patient today reports that his mood is better is not as upset and hasn't been as tearful, during the interview he did not have any hysterical crying as he did yesterday but continues to exhibit some inappropriate affect when discussing some situations by smiling and laughing. Patient reports no side effects from the medication and he feels that they have been helpful. Patient continues to use a wheelchair here but states he can get up and ambulate for a few steps and had been using a walker at home. Discharge plans were discussed in team treatment meeting as the patient is not able to return to live with his grandmother and has no other housing. Plan: Patient will continue on Abilify 2 mg daily and Celexa 20 mg and will continue to evaluate the patient's response to the medication. Consultation for Dr. Miranda was ordered regarding his HIV status. Patient's guardians will be contacted regarding housing for the patient upon discharge. Patient continues to require hospitalization to further stabilize his mood
[2017-11-12] MEDS: ACETAMINOPHEN TAB 325 MG TAB PO PRN ×2 (16:43→23:42)
[2017-11-12 22:40] LABS: Appearance,Urine Clear (Clear); Bilirubin,Urine Negative (Negative); Blood,Urine Negative (Negative); Color,Urine Yellow; Glucose,Urine (UA) Negative (Negative); Ketones,Urine Negative (Negative); Leukocyte Esterase,Urine Negative (Negative); Nitrite,Urine Negative (Negative); PH, Urine 5.5 (5.0-8.0); Protein,Urine Negative (Negative); Specific Gravity,Urine 1.019 (1.001-1.035); Urobilinogen,Urine <2.0 mg/dL (<2.0)
[2017-11-12] MEDS: LORazepam 1 MG TAB PO PRN (23:42)
[2017-11-13] MEDS: ARIPiprazole 2 MG TAB PO SCH (09:10)
[2017-11-13] MEDS: GABAPENTIN 300 MG CAP PO SCH ×3 (09:11→20:09)
[2017-11-13] MEDS: FERROUS SULFATE 325 MG TAB PO SCH (09:11)
[2017-11-13] MEDS: STRIBILD PO SCH (09:11)
[2017-11-13] MEDS: APIXABAN 5 MG TAB PO SCH ×2 (09:11→20:09)
[2017-11-13] MEDS: CITALOPRAM HYDROBROMIDE 20 MG TAB PO SCH (09:11)
[2017-11-13] MEDS: TRIAMTERENE PO SCH (09:12)
[2017-11-13] MEDS: HYDROCHLOROTHIAZIDE PO SCH (09:12)
--- NOTE | 2017-11-13 13:55 | P.PN ---
Progress Note - Text Progress Note Date: 11/13/17 Interval History: Patient is a 27-year-old male who was seen today, today's using a walker to ambulate. Patient has difficulty picking up his feet and when walking slightly drags them on the ground. Patient states that he is ready to leave and wants to know if he can find his own apartment. Patient reported that he is not hearing voices feeling suicidal or homicidal. He states that he hasn't been crying or tearful. However when the patient and I began discussing the fact that he is not going to be living in his own apartment he stated "nothing goes my way", "I don't know why I'm here". Patient states that he was taking care of himself becoming tearful and crying while we were discussing this. During this time. The patient just began muttering about his father his brother and when I interrupted him he stated he was just talking about his family. Patient was able to tell me that he doesn't do the cooking when he is living with his grandmother he could reheat food but she did all the cooking and mostly did the laundry for him. Patient reports no side effects from his medication. Mental Status: Appearance/Attitude: Patient is casually dressed, using a walker today and it's noted that he doesn't clam picker his feet when he walks he kind of drags them forward patient was cooperative Behavior: Patient did not display any psychomotor agitation or retardation Speech/Language: Patient's speech was spontaneous and normal volume and rhythm and he was coherent, except at one point the patient began muttering about his father his brother when I interrupted him he stated he was just talking about his family but this was not in response to a question and was in a rambling style. Thought Process: Patient was mostly goal-directed there is no evidence of loose association or flight of ideas Thought Content: Patient denied any auditory or visual hallucination and no delusions or paranoid ideation were elicited. Patient states that he's been sleeping and eating well here and reported that he didn't have any further crying her tearful episodes over during our interview he became quite upset and started sobbing again. Patient feels that he is able to live on his own in an apartment even though he has not been caring for himself recently and has been living with either his mother or grandmother. Patient also reported that he becomes incontinent of urine at times at night. Suicidal/Homicidal Ideation: Patient denied any current suicidal or homicidal ideation Sensorium/Cognition: Patient is alert and oriented to person, situation and time Mood/Affect: Patient's mood was labile at times especially when he gets frustrated and is not getting his own way, his affect at times was inappropriate laughing Insight/Judgment: Patient's insight and judgment are limited Assessment: Patient continues to have episodes of lability with his mood, however not as severe as on admission. Patient does get upset feeling that he can live independently in his own apartment even though he is not able to discuss his ability to care for himself independently and the fact that he's been living with his mother or and/or grandmother. Patient becomes upset when he here feeling that nothing's going his way and doesn't understand why he is in the hospital. Patient today was using a walker and ambulating fairly well with that. Patient denies any psychotic symptoms and is not suicidal or homicidal. Patient has been attending some groups and activities. Plan: Patient will continue on Abilify 2 mg daily and Celexa 20 mg daily, continue to work with the guardian regarding placement for this patient as he is not able to return to live with his grandmother and is not able to live on his own. Patient continues to require hospitalization until a appropriate discharge plan is arranged.
[2017-11-13 14:22] LABS: Urine Alcohol Negative (Negative); Urine Barbiturate Negative (Negative); Urine Cocaine Negative (Negative); Urine Methadone Negative (Negative); Urine Opiates Negative (Negative); Urine Phencyclidine Negative (Negative)
[2017-11-14] MEDS: ACETAMINOPHEN TAB 325 MG TAB PO PRN ×3 (02:20→22:45)
[2017-11-14] MEDS: APIXABAN 5 MG TAB PO SCH ×2 (08:45→20:29)
[2017-11-14] MEDS: CITALOPRAM HYDROBROMIDE 20 MG TAB PO SCH (08:46)
[2017-11-14] MEDS: ARIPiprazole 2 MG TAB PO SCH (08:46)
[2017-11-14] MEDS: TRIAMTERENE PO SCH (08:47)
[2017-11-14] MEDS: HYDROCHLOROTHIAZIDE PO SCH (08:47)
[2017-11-14] MEDS: FERROUS SULFATE 325 MG TAB PO SCH (08:49)
[2017-11-14] MEDS: STRIBILD PO SCH (08:49)
[2017-11-14] MEDS: GABAPENTIN 300 MG CAP PO SCH ×3 (08:49→20:29)
--- NOTE | 2017-11-14 12:13 | P.PN ---
Progress Note - Text Progress Note Date: 11/14/17 Interval History: Patient is a 27-year-old male who was seen today and he reports that he is feeling stable has not had any crying spells and is not feeling suicidal. Patient is using his own walker to ambulate today. Patient questioned when he was given to be discharged from the hospital and states that he wants to go to a residential or motel. Patient reports that he slept last night on average documented that he only slept for 3 hours. Patient reports he has no appetite disturbance. Patient then went on to ramble on about no one cares about him, nothing is getting done, he's not to let anything get to him Mental Status: Appearance/Attitude: Patient is casually dressed using a walker to ambulate, makes intermittent eye contact and was cooperative. Behavior: Patient does not display any psychomotor agitation or retardation Speech/Language: Patient's speech is spontaneous of normal volume and rhythm and he is coherent Thought Process: Patient was goal-directed other than it was time and we discussed no discharge plans he went off on a rambling statement about how no one cares, he isn't going to let it get to him Thought Content: Patient denied any auditory or visual hallucinations and no delusions or paranoid ideation were elicited. Patient states that he feels ready to leave the hospital and wonders why he can't be released to a residential or a motel. Patient slept for 3 hours last night he states he slept longer. Suicidal/Homicidal Ideation: Patient denies any current suicidal or homicidal ideation Sensorium/Cognition: Patient is alert and oriented to person, place and situation Mood/Affect: patient's mood was stable there is no evidence of tearfulness or lability and his affect was more appropriate Insight/Judgment: patient's insight and judgment are limited, patient feels he is able to live independently Assessment: Patient continues to question when he will be able to leave the hospital and wonders why he can't stay in a residential or in a motel. Patient feels he is able to care for himself without any assistance, patient has been living with either his mother or grandmother and is not been independently caring for his activities of daily living. Patient slept for only 3 hours last night. Patient's mood is more stable there is less lability and his affect is more appropriate today. Plan: [Patient will continue on Celexa 20 mg and Abilify 2 mg and will add melatonin 3 mg at bedtime to assist with sleep. Patient is awaiting a supervised living situation prior to his being discharged.
[2017-11-14] MEDS: MELATONIN 3 MG TABLET PO SCH (20:28)
[2017-11-14] MEDS: LORazepam 1 MG TAB PO PRN (22:12)
[2017-11-15] MEDS: APIXABAN 5 MG TAB PO SCH ×2 (09:18→20:52)
[2017-11-15] MEDS: CITALOPRAM HYDROBROMIDE 20 MG TAB PO SCH (09:18)
[2017-11-15] MEDS: ARIPiprazole 2 MG TAB PO SCH (09:18)
[2017-11-15] MEDS: FERROUS SULFATE 325 MG TAB PO SCH (09:18)
[2017-11-15] MEDS: GABAPENTIN 300 MG CAP PO SCH ×3 (09:19→20:52)
[2017-11-15] MEDS: STRIBILD PO SCH (09:20)
[2017-11-15] MEDS: TRIAMTERENE PO SCH (09:20)
[2017-11-15] MEDS: HYDROCHLOROTHIAZIDE PO SCH (09:20)
--- NOTE | 2017-11-15 11:46 | P.PN ---
Progress Note - Text Progress Note Date: 11/15/17 Interval History: Patient is a 27-year-old male who was seen in his room today because he is complaining of a headache due to earwax. Patient states that he is not having any suicidal thoughts and has been feeling fairly well and reports no episodes of crying. Patient states that grandmother will be visiting tomorrow and states that she is looking for a place for him to live. He had no other complaints at this time. Mental Status: Appearance/Attitude: Patient is appropriately dressed, sitting in his bed in his room, made intermittent eye contact and was cooperative. Behavior: Patient does not display any psychomotor agitation or retardation. Speech/Language: Patient's speech is spontaneous of normal volume and rhythm and he is coherent Thought Process: Patient is goal-directed there is no evidence of loose association or flight of ideas Thought Content: Patient denies any auditory or visual hallucination and no delusions or paranoid ideation or elicited. Patient stated that he talk to his grandmother and she is looking for placement for him and he was accepting of that today. Patient states that he is sleeping and eating well. He reports he hasn't had any episodes of tearfulness or crying. Suicidal/Homicidal Ideation: Patient denies any current suicidal or homicidal ideation Sensorium/Cognition: Patient is alert and oriented to person, place and situation Mood/Affect: Patient's mood is stable and his affect is appropriate to his mood Insight/Judgment: Patient's insight and judgment are limited Assessment: Patient's mood is more stable, there have been no episodes of hysterical crying or other mood lability. Patient today discussed the fact that his grandmother and guardian or looking for a place for him to live and he was accepting of that. Patient is complaining of a headache today due to earwax and his years but states that Tylenol was effective. Patient reports no side effects from his medication. Patient has been attending groups and activities and has been no reports of any inappropriate behavior. Plan: Patient will continue on Celexa 20 mg daily and Abilify 2 mg daily, patient's mood is more stable and he is reporting today that he is accepting of placement. Patient continues to require hospitalization until an appropriate placement can be arranged.
[2017-11-15] MEDS: ACETAMINOPHEN TAB 325 MG TAB PO PRN ×2 (12:08→22:40)
[2017-11-15] MEDS: LORazepam 1 MG TAB PO PRN ×2 (12:08→23:26)
[2017-11-15] MEDS: MELATONIN 3 MG TABLET PO SCH (20:52)
[2017-11-16] MEDS: STRIBILD PO SCH (08:04)
[2017-11-16] MEDS: APIXABAN 5 MG TAB PO SCH ×2 (08:04→20:59)
[2017-11-16] MEDS: TRIAMTERENE PO SCH (08:05)
[2017-11-16] MEDS: HYDROCHLOROTHIAZIDE PO SCH (08:05)
[2017-11-16] MEDS: CITALOPRAM HYDROBROMIDE 20 MG TAB PO SCH (08:06)
[2017-11-16] MEDS: GABAPENTIN 300 MG CAP PO SCH ×3 (08:06→21:00)
[2017-11-16] MEDS: FERROUS SULFATE 325 MG TAB PO SCH (08:06)
[2017-11-16] MEDS: ARIPiprazole 2 MG TAB PO SCH (08:06)
[2017-11-16] MEDS: ACETAMINOPHEN TAB 325 MG TAB PO PRN ×2 (09:07→17:34)
--- NOTE | 2017-11-16 10:45 | P.PN ---
Progress Note - Text Interval history: The patient is found at the desktop support associate he follows me to an interview room. He reports his mood is good. He describes some frustration that he still here but is aware that appropriate placement needs to be found. He has no questions or concerns regarding his medication. He has been compliant with his medication. He ventilates frustration because of family members specifically his guardian. Mental status exam: The patient is alert he is dressed in his own clothing. He is ambulating with a walker. He initially states his mood is good. Speech is fluent spontaneous nonpressured. In describing his frustration with family members he becomes more animated and tearful but quickly reconstitutes. He does demonstrate a histrionic quality during the conversation. He is reporting no suicidal or homicidal ideation intent or plan. He is reporting no auditory or visual hallucinations. He does not appear hypomanic or manic. Insight and judgment seem to be improving. He demonstrates no verbal or physical aggressiveness or any abnormal involuntary movements. Plan: The patient will continue on his current medications. We will monitor him for safety he is encouraged to participate in the [facility]. He appears to be clinically stabilizing.
[2017-11-16] MEDS: MELATONIN 3 MG TABLET PO SCH (20:59)
[2017-11-16] MEDS: IBUPROFEN 600 MG TAB PO PRN (22:32)
[2017-11-16] MEDS: LORazepam 1 MG TAB PO PRN (22:32)
[2017-11-17] MEDS: ACETAMINOPHEN TAB 325 MG TAB PO PRN ×3 (06:05→21:39)
[2017-11-17] MEDS: LORazepam 1 MG TAB PO PRN (06:05)
[2017-11-17] MEDS: CITALOPRAM HYDROBROMIDE 20 MG TAB PO SCH (08:45)
[2017-11-17] MEDS: GABAPENTIN 300 MG CAP PO SCH ×3 (08:45→20:56)
[2017-11-17] MEDS: ARIPiprazole 2 MG TAB PO SCH (08:45)
[2017-11-17] MEDS: HYDROCHLOROTHIAZIDE PO SCH (08:46)
[2017-11-17] MEDS: STRIBILD PO SCH (08:46)
[2017-11-17] MEDS: APIXABAN 5 MG TAB PO SCH ×2 (08:46→20:56)
[2017-11-17] MEDS: TRIAMTERENE PO SCH (08:46)
[2017-11-17] MEDS: FERROUS SULFATE 325 MG TAB PO SCH (08:46)
--- NOTE | 2017-11-17 10:33 | P.PN ---
Progress Note - Text Interval history: The patient is found in the hallway he follows me to an interview room. The patient is fairly animated and demonstrates affect lability. He describes his frustration that he is here until placement is found and feels that no one is trying to help him and he is all alone. He was recorded he slept 6 hours last night. Appetite stable. He has no questions or concerns regarding his psychotropic medication. Mental status exam: The patient is alert he is ambulating with a wheeled walker. He is quite animated and demonstrative during the conversation. He has spontaneous speech and in fact is quite verbose. He demonstrates smiling laughter and tearfulness all in a brief period of time. Again he continues to demonstrate histrionic qualities. He demonstrates a very pessimistic outlook. He is reporting no suicidal ideation and becomes agitated when asked that question. Reporting no thoughts of harming others. He indicates he is experiencing no hallucinations or specific delusions. Insight and judgment limited. He does terminate the session early by getting up and slowly walking out. Plan: The patient will continue on his current medication. We will monitor him for safety and encourage his participation in the milieu. Vital signs reviewed.
[2017-11-17] MEDS ORDERED: LOPERAMIDE 2 MG CAP PO STA (19:42)
[2017-11-17] MEDS: MELATONIN 3 MG TABLET PO SCH (20:55)
[2017-11-18] MEDS: ACETAMINOPHEN TAB 325 MG TAB PO PRN ×3 (03:22→22:23)
[2017-11-18] MEDS: LORazepam 1 MG TAB PO PRN ×2 (03:22→22:23)
[2017-11-18] MEDS: APIXABAN 5 MG TAB PO SCH ×2 (09:37→20:13)
[2017-11-18] MEDS: STRIBILD PO SCH (09:37)
[2017-11-18] MEDS: FERROUS SULFATE 325 MG TAB PO SCH (09:38)
[2017-11-18] MEDS: GABAPENTIN 300 MG CAP PO SCH ×3 (09:38→20:13)
[2017-11-18] MEDS: ARIPiprazole 2 MG TAB PO SCH (09:38)
[2017-11-18] MEDS: CITALOPRAM HYDROBROMIDE 20 MG TAB PO SCH (09:38)
[2017-11-18] MEDS: TRIAMTERENE PO SCH (09:39)
[2017-11-18] MEDS: HYDROCHLOROTHIAZIDE PO SCH (09:39)
--- NOTE | 2017-11-18 12:06 | P.PN ---
Progress Note - Text Progress Note Date: 11/18/17 Interval History: Patient is a 27-year-old male who was seen today and he reports that he wants to know when he is being discharged and why he can't find his own apartment. He complained that he is ready to leave he feels like he is being imprisoned here and he doesn't have access to a computer his phone can't make any calls. Patient states that he was up at night for 4 hours because he was incontinent last night. Patient had been sleeping prior to that about 6 hours a night. Patient reported no side effects from the medication and denied that he was feeling suicidal or depressed. Mental Status: Appearance/Attitude: Patient is casually dressed, using a walker to ambulate and makes intermittent eye contact Behavior: Patient did not exhibit any psychomotor agitation or retardation Speech/Language: Patient's speech is spontaneous of normal volume and rhythm and he is coherent Thought Process: Patient is goal-directed there is no evidence of loose association or flight of ideas Thought Content: Patient denied any auditory or visual hallucinations no delusions or paranoid ideation were elicited. Patient continues to complain that he is being imprisoned here feels that he can live on his own if he could find his own apartment. He complains that his guardians are looking for a place for him to live. Patient again at the end of the interview and just began talking about not having a place to live, his guardians on taking care of him, the fact that he needs a cell phone in the computer, and his other complaints about being imprisoned here in the inpatient unit. Patient slept for 4 hours last night he states he was incontinent of urine during the evening. Suicidal/Homicidal Ideation: Patient denies any current suicidal or homicidal ideation Sensorium/Cognition: Patient is alert and oriented to person, place, and time Mood/Affect: Patient's mood remains labile at times cooperative and then at times becoming quite upset and angry about being here and his affect is appropriate to his mood Insight/Judgment: Patient's insight and judgment are impaired Assessment: Patient gets upset and his mood is labile when discussing the fact that he is unable to leave the hospital, otherwise the patient has been cooperative and appropriate on the inpatient unit. He uses either a wheelchair or a walker to ambulate. Patient does not understand why he has a guardian feeling that he can live on his own and care for himself. Patient has no suicidal ideation and reports he is not depressed. Plan: Patient will continue on Celexa 20 mg and Abilify 2 mg, we continue to await placement by the guardian's to discharge this patient. Patient does require supervised living situation as he is unable to live independently.
[2017-11-18] MEDS: MELATONIN 3 MG TABLET PO SCH (20:13)
[2017-11-19] MEDS: ACETAMINOPHEN TAB 325 MG TAB PO PRN ×2 (04:26→17:21)
[2017-11-19] MEDS: CITALOPRAM HYDROBROMIDE 20 MG TAB PO SCH (09:23)
[2017-11-19] MEDS: APIXABAN 5 MG TAB PO SCH ×2 (09:23→20:47)
[2017-11-19] MEDS: ARIPiprazole 2 MG TAB PO SCH (09:23)
[2017-11-19] MEDS: STRIBILD PO SCH (09:24)
[2017-11-19] MEDS: FERROUS SULFATE 325 MG TAB PO SCH (09:25)
[2017-11-19] MEDS: GABAPENTIN 300 MG CAP PO SCH ×3 (09:25→20:47)
[2017-11-19] MEDS: TRIAMTERENE PO SCH (09:26)
[2017-11-19] MEDS: HYDROCHLOROTHIAZIDE PO SCH (09:26)
--- NOTE | 2017-11-19 11:33 | P.PN ---
Progress Note - Text Progress Note Date: 11/19/17 Interval History: Patient is a 27-year-old male who was seen in his room, he was lying in bed and stated that no one cares about him because no one's helping him find a place to live. Patient states that he's never been suicidal and denied that he ever made any suicidal statements and denied that he ever tried to hurt his grandmother. Patient states that he is angry at his grandmother because she is not finding him a place to live. Patient denied hearing voices or feeling suicidal or homicidal at this time. Patient states that he was incontinent of urine again last night and when I tried to discuss with him whether this is been occurring prior to this admission he stated now that he's never had that problem before. Mental Status: Appearance/Attitude: Patient is lying in bed, makes intermittent eye contact and is cooperative Behavior: Patient does not exhibit any psychomotor agitation or retardation Speech/Language: Patient's speech is spontaneous of normal volume and rhythm and he is coherent Thought Process: Patient is goal-directed, patient does become upset when discussing his discharge and again will go off on a tangent listing complaints about his grandmother, the guardian, the fact that he can live independently Thought Content: Patient denies auditory or visual hallucinations no delusions or paranoid ideation were elicited. Patient states that he is not sleeping well but can't tell me why, patient is incontinent of urine at night. Patient states that his appetite is good. Patient continues to assert that he can live on his own and wants the guardian and his grandmother to find him a place to live on his own. Patient is angry that no one cares about him because no one's found him a place to live. Suicidal/Homicidal Ideation: Patient denies any current suicidal or homicidal ideation Sensorium/Cognition: Patient is alert and oriented to person, place and time Mood/Affect: Patient's mood is somewhat labile and his affect is appropriate to his mood Insight/Judgment: Patient's insight and judgment are limited Assessment: Patient continues to verbalize that he wants to live on his own, is angry and feels that neither his grandmother or his guardian care about him or doing anything to find him a place to live. Patient continues to complain that he doesn't need to be here that it feels like he is being imprisoned and he would do better if he was discharged. Patient is incontinent of urine at night and I cannot find any documentation about whether or not this was an issue prior to this admission. Plan: Patient continues on Abilify 2 mg and Celexa 20 mg to target his mood, patient continues to require supervised living situation and we are awaiting placement. Will contact the biomedical service engineer regarding the patient's incontinence at night.
[2017-11-19 18:48] LABS: Appearance,Urine Clear (Clear); Bilirubin,Urine Negative (Negative); Blood,Urine Negative (Negative); Color,Urine Light Yellow; Glucose,Urine (UA) Negative (Negative); Ketones,Urine Negative (Negative); Leukocyte Esterase,Urine Negative (Negative); Nitrite,Urine Negative (Negative); Protein,Urine Negative (Negative); Specific Gravity,Urine 1.012 (1.001-1.035); Urobilinogen,Urine <2.0 mg/dL (<2.0)
[2017-11-19] MEDS: IBUPROFEN 600 MG TAB PO PRN (19:42)
[2017-11-19] MEDS: LORazepam 1 MG TAB PO PRN (19:43)
[2017-11-19] MEDS: MELATONIN 3 MG TABLET PO SCH (20:47)
[2017-11-20] MEDS: ACETAMINOPHEN TAB 325 MG TAB PO PRN ×2 (01:31→18:56)
[2017-11-20] MEDS ORDERED: WATER FOR INJECTION, STERILE 10 ML IV ONE (01:46)
[2017-11-20] MEDS ORDERED: ZIPRASIDONE 20 MG VIAL IM ONE (01:46)
[2017-11-20] MEDS: LORazepam 1 MG TAB PO PRN ×2 (04:02→22:24)
[2017-11-20] MEDS: IBUPROFEN 600 MG TAB PO PRN ×2 (04:02→22:24)
[2017-11-20] MEDS: ARIPiprazole 2 MG TAB PO SCH (10:01)
[2017-11-20] MEDS: FERROUS SULFATE 325 MG TAB PO SCH (10:02)
[2017-11-20] MEDS: GABAPENTIN 300 MG CAP PO SCH ×3 (10:02→20:33)
[2017-11-20] MEDS: CITALOPRAM HYDROBROMIDE 20 MG TAB PO SCH (10:02)
[2017-11-20] MEDS: APIXABAN 5 MG TAB PO SCH ×2 (10:02→20:33)
[2017-11-20] MEDS: STRIBILD PO SCH (10:03)
[2017-11-20] MEDS: HYDROCHLOROTHIAZIDE PO SCH (10:04)
[2017-11-20] MEDS: TRIAMTERENE PO SCH (10:04)
--- NOTE | 2017-11-20 12:49 | P.PN ---
Progress Note - Text Progress Note Date: 11/20/17 Interval History: Patient is 27-year-old male who was seen today, he continues to use a walker to ambulate and stated that he couldn't sleep last night and got upset because no one is helping him with his ear pain. Patient states that he needed an injection to help him and states that none of the injections helped his ear pain at all or helped him sleep. Patient again continues to complain that no one is trying to help him, the guardian is not interested in helping him and that he can live independently. When I asked the patient when was the last time he lived on his own he states that he was living with a roommate in the past but could not tell me exactly when this was. Patient again at the interview looked off to the side of the room and began talking about his complaints of no one caring about him the fact that he is burgos but doesn't want to be, the fact that people call him the fact, the fact that people complain about his not being able to walk and that he's going to beat the crap out of them that he can't because he doesn't have the energy. Mental Status: Appearance/Attitude: Patient is casually dressed, using a walker to ambulate and does dragged his feet slightly when walking, patient is superficially cooperative Behavior: Patient does not exhibit any psychomotor agitation or retardation. Speech/Language: Patient's speech is spontaneous of normal volume and rhythm and he is coherent Thought Process: Patient is goal-directed however at times during the interview he will look off and just began a rambling list of complaints and statements about how he is being treated how he feels. Thought Content: Patient denies any auditory or visual hallucinations and no delusions or paranoid ideation were elicited. Patient states that he couldn't sleep last night because of the ear pain and states the injection didn't help. Suicidal/Homicidal Ideation: Patient denies any current suicidal or homicidal ideation Sensorium/Cognition: Patient is alert and oriented to person, situation and time Mood/Affect: Patient's mood is irritable and his affect is appropriate to his mood Insight/Judgment: Patient's insight and judgment are limited Assessment: Patient continues to insist that he can live on his own, it is unclear to me when the patient last lived on his own. Per social work yesterday the patient's grandmother has informed us that the patient has been accepted into a low income apartment in the community mental [facility] would provide some chore providers. Patient apparently became agitated last night complaining that his ear was hurting and required injectable medication. Patient continues to complain that no one is helping him that he can live on his own, and continues to have periods during the interviews where he just rambles on about a list of complaints or statements. Plan: Patient continues on Abilify 2 mg and Celexa 20 mg, will clarify with [facility] exactly how much assistance of patient is going to receive, I continue to have concerns of the patient is able to live on his own without supervision. Patient continues to require hospitalization until appropriate discharge plan is made.
[2017-11-20] MEDS: MELATONIN 3 MG TABLET PO SCH (20:33)
[2017-11-21] MEDS: ARIPiprazole 2 MG TAB PO SCH (09:51)
[2017-11-21] MEDS: CITALOPRAM HYDROBROMIDE 20 MG TAB PO SCH (09:51)
[2017-11-21] MEDS: FERROUS SULFATE 325 MG TAB PO SCH (09:52)
[2017-11-21] MEDS: ACETAMINOPHEN TAB 325 MG TAB PO PRN (09:52)
[2017-11-21] MEDS: STRIBILD PO SCH (09:53)
[2017-11-21] MEDS: APIXABAN 5 MG TAB PO SCH ×2 (09:54→20:09)
[2017-11-21] MEDS: TRIAMTERENE PO SCH (09:55)
[2017-11-21] MEDS: HYDROCHLOROTHIAZIDE PO SCH (09:55)
[2017-11-21] MEDS: GABAPENTIN 300 MG CAP PO SCH ×3 (09:55→20:08)
[2017-11-21] MEDS: LORazepam 1 MG TAB PO PRN ×2 (12:34→22:57)
--- NOTE | 2017-11-21 12:56 | P.PN ---
Progress Note - Text Progress Note Date: 11/21/17 Interval History: Patient is a 27-year-old male is seen in the interview room today, he approached me earlier in the morning and stated that his grandmother found in an apartment and he was going to move again on December 07. During our meeting I discussed the patient that that was not the discharge plans that had been agreed upon between his guardians and that he would be going to a fpc. Patient became quite upset and crying, sobbing hysterically, yelling becoming increasingly angry and agitated during our meeting. Patient stated that he can live on his own is been taking his medications, was planning to have his 18-year-old sister live with him and have a birthday democrat or his brother. Patient continues to complain that this places like a senior living , he doesn't need to be here, he sorry he came here and states he doesn't know why he continues to live. Mental Status: Appearance/Attitude: Patient is casually dressed, using a walker to ambulate and was superficially cooperative Behavior: Patient became quite agitated during our interview sobbing hysterically, yelling and banging his fists on his legs and eventually getting up and walking out of the interview room Speech/Language: Patient's speech is spontaneous and normal volume and rhythm and he is coherent Thought Process: Patient is goal-directed however during the interview at times the patient will go into a tirade and just complain about issues one after the other, about his treatment here, about his grandmother, about placement Thought Content: Patient denies auditory or visual hallucinations and no delusions or paranoid ideation or elicited. Patient is sleeping at night and is eating well. Patient became quite upset during the interview when I discussed with him that he would be placed in a fpc and not be going to live independently. Patient continues to report that he can live independently , with planning and having his sister live with him and a birthday democrat for his brother. Suicidal/Homicidal Ideation: Patient denies any current suicidal or homicidal ideation however during the interview he stated "I don't care if I " Sensorium/Cognition: Patient is alert and oriented to person, place, and time Mood/Affect: Patient's mood is labile and his affect is appropriate to his mood Insight/Judgment: Patient has limited insight into his illness Assessment: And I discussed the patient that he would not be moving into his own apartment as his grandmother had informed him, I also spoke with his grandmother about the fact that the patient requires supervised living to make sure he is compliant with his medications and that he is taking care of himself appropriately. Patient became quite agitated, yelling and crying and hitting himself on the legs in the office and abruptly left because he was angry that he is being held here, he states it feels like a longterm. Patient states he doesn' t really care now if he lives or dies. Patient has been attending groups and activities. I reviewed with the patient that his guardians will decide where he is placed on discharge and he complains that he doesn't understand why he has guardians. Plan: Patient continues on Abilify 2 mg and Celexa 20 mg to target his mood, as stated before the patient has evidence on his MRI of cerebral atrophy and white matter damage. Patient will continue on his current medications and the plan will be the patient will be discharged to a supervised living situation, most likely a fpc. Patient continues to require inpatient hospitalization to plan for appropriate discharge.
--- NOTE | 2017-11-21 17:43 | P.GSCN ---
History of Present Illness Consult date: 11/21/17 Reason for Consult: Right ear pain Requesting physician: Dar Mclaughlin History of present illness: This is a 27-year-old white male activities patient who has had symptoms of right ear pain per the nursing staff. The patient tells me that the pain is really more right methodist in origin. He tells me that is intermittent. He denies any otologic symptoms. He denies any neurologic symptoms other than his ongoing psychiatric and issues with his aids. He denies any visual changes. Denies any difficulty with swallowing or throat symptoms. Denies any breathing issues. Review of Systems - Constitutional Reports as per HPI - EENT Eyes: denies as per HPI Ears, nose, mouth and throat: Reports bleeding gums, Reports dental pain, Denies dysphagia, Denies nasal congestion, Denies nasal discharge, Denies post- nasal drip - Cardiovascular Denies claudication - Respiratory Denies congestion - Gastrointestinal Denies belching - Genitourinary Denies dysuria - Musculoskeletal Denies arm numbness/tingling - Integumentary Denies acne - Neurological Denies syncope - Psychiatric Reports change in sleep habits - Endocrine Denies deepening of the voice - Hematologic/Lymphatic Denies easy bleeding - Allergic/Immunologic Reports allergic rhinitis Past Medical History Past Medical History: No Reported History Additional Past Medical History / Comment(s): hiv +, HIV encephalopathy History of Any Multi-Drug Resistant Organisms: None Reported Past Surgical History: No Surgical Hx Reported Past Anesthesia/Blood Transfusion Reactions: No Reported Reaction Past Psychological History: No Psychological Hx Reported Smoking Status: Never smoker Past Alcohol Use History: None Reported Past Drug Use History: Marijuana - Past Family History Mother History Unknown: Yes Medications and Allergies Home Medications Medication Instructions Recorded Confirmed Type Elviteg/Tracee/Emtric/Tenofo Dis 1 tab PO DAILY #30 tab 08/05/17 11/09/17 Rx [Stribild Tablet] Apixaban [Eliquis] 5 mg PO BID #60 tab 09/16/17 11/09/17 Rx Ferrous Sulfate [Feosol] 325 mg PO DAILY 11/09/17 11/09/17 History Gabapentin [Neurontin] 300 mg PO BID@09,16 11/09/17 11/09/17 History Gabapentin [Neurontin] 600 mg PO HS@11/09/17 11/09/17 History Triamterene-Hctz 37.5-25Mg 1 cap PO DAILY 11/09/17 11/09/17 History [Dyazide 37.5-25 Capsule] Allergies Allergy/AdvReac Type Severity Reaction Status Date / Time No Known Allergies Allergy Verified 11/09/17 13:05 Surgical - Exam Osteopathic Statement: *. No significant issues noted on an osteopathic structural exam other than those noted in the History and Physical/Consult. Vital Signs Temp Pulse Resp BP Pulse Ox 97.9 F 83 16 157/78 98 11/09/17 11:19 11/09/17 11:19 11/09/17 11:19 11/09/17 11:19 11/09/17 11:19 - General well developed, no distress - Eyes PERRL, normal ocular movement - ENT Head is normocephalic the face is symmetric is no abnormal movements is no tenderness to the sinuses are mastoids there is no nodules or eruptions or parasites on scalp. The auricles are well-formed the right canal has a cerumen impaction unable to view the tympanic membrane on the right the left tympanic membrane is very atrophic with myringosclerosis and evidence of previous infections. Nose is patent mouth and throat shows terrible dental condition. Severe gingivitis is noted. Neck shows no tumors or masses. Examination shows right temporal and right TMJ tenderness and tenderness to opening and closing the mouth is released his TMJ movement. - Neck no masses - Respiratory normal expansion - Integumentary no rash - Neurologic normal sensation - Psychiatric oriented to time, oriented to person, oriented to place, speech is normal Results - Labs 11/10/17 08:12 11/10/17 08:12 Microbiology - Last 24 Hours (Table) 11/19/17 17:44 Urine Culture - Final Urine,Clean Catch Assessment and Plan (1) Impacted cerumen of right ear Current Visit: Yes Status: Acute Code(s): H61.21 - IMPACTED CERUMEN, RIGHT EAR SNOMED Code(s): 69617144 (2) Conductive hearing loss in right ear Current Visit: Yes Status: Acute Code(s): H90.11 - CONDCTV HEAR LOSS, UNI, RIGHT EAR, W UNRESTR HEAR CNTRA SIDE SNOMED Code(s): 179221206 (3) TMJ arthralgia Current Visit: Yes Status: Acute Code(s): M26.629 - ARTHRALGIA OF TEMPOROMANDIBULAR JOINT, UNSPECIFIED SIDE SNOMED Code(s): 03501898 Plan: This patient has terrible gingivitis and antibiotics have been prescribed. Dental examination and treatment is recommended. I'm recommending Motrin for his TMJ. TMJ can also be dealt with by his dentist. We'll be utilizing ear drops for his right cerumen impaction. He can follow up with this patient on an outpatient basis. Please call me if any changes should occur. Thank you very much for alarming to participate in the care of this patient. Time with Patient: Greater than 30
[2017-11-21] MEDS: IBUPROFEN 600 MG TAB PO PRN (19:13)
[2017-11-21] MEDS: MELATONIN 3 MG TABLET PO SCH (20:08)
[2017-11-21] MEDS: CLINDAMYCIN 150 MG CAP PO SCH (20:09)
[2017-11-21] MEDS: OFLOXACIN 0.3% OPHTH DROPS 5 ML BOTTLE RIGHT EAR SCH (20:44)
[2017-11-22] MEDS: ACETAMINOPHEN TAB 325 MG TAB PO PRN ×2 (05:48→22:46)
[2017-11-22] MEDS: ARIPiprazole 2 MG TAB PO SCH (08:50)
[2017-11-22] MEDS: CITALOPRAM HYDROBROMIDE 20 MG TAB PO SCH (08:50)
[2017-11-22] MEDS: GABAPENTIN 300 MG CAP PO SCH ×3 (08:50→20:39)
[2017-11-22] MEDS: CLINDAMYCIN 150 MG CAP PO SCH ×2 (08:50→20:38)
[2017-11-22] MEDS: FERROUS SULFATE 325 MG TAB PO SCH (08:51)
[2017-11-22] MEDS: STRIBILD PO SCH (08:51)
[2017-11-22] MEDS: APIXABAN 5 MG TAB PO SCH ×2 (08:52→20:40)
[2017-11-22] MEDS: TRIAMTERENE PO SCH (08:53)
[2017-11-22] MEDS: HYDROCHLOROTHIAZIDE PO SCH (08:53)
[2017-11-22] MEDS: OFLOXACIN 0.3% OPHTH DROPS 5 ML BOTTLE RIGHT EAR SCH ×2 (08:53→20:40)
--- NOTE | 2017-11-22 11:20 | P.PN ---
Progress Note - Text Progress Note Date: 11/22/17 Interval History: Patient is a 27-year-old male who was seen today, he continues to use a walker to ambulate. Patient states that he is eating her pain is better now that he is had the ear drops and did not use Tylenol last night for pain. He apologized for his behavior yesterday and then went on to state that he could go live with his sister is 18 and has a car and she can ". Patient and I then discussed that we were waiting for placement and he said okay. patient states he's been attending groups and activities and states his appetite is good. Mental Status: Appearance/Attitude: Patient is casually dressed, using a walker to ambulate, makes good eye contact and was cooperative. Behavior: Patient does not display any psychomotor agitation or retardation. Speech/Language: Patient is spontaneous, speech is of normal volume and rhythm and he is coherent. Thought Process: Patient is goal-directed there is no evidence of loose association or flight of ideas Thought Content: Patient denies any auditory or visual hallucinations no delusions or paranoid ideation were elicited. Patient states he slept better last night because his ear did not bother him and his appetite remains good. Patient continues to discuss that he could go live with his sister now is 18 years of age because she has a car". Suicidal/Homicidal Ideation: Patient denies any current suicidal or homicidal ideation. Sensorium/Cognition: Patient is alert and oriented to person, location and time Mood/Affect: Patient's mood is labile at times he was laughing and smiling inappropriately during the interview Insight/Judgment: Patient's insight and judgment are impaired, patient again discussed now going to live with his sister who is 18 because she has a car" then he was agreeable that he needs that we were working toward placement and then stated he could live on his own Assessment: Patient continues to exhibit a labile affect at times inappropriately laughing and smiling during the interview. Patient will discuss wanting to live on his own, then wanting to live with his sister and then when I discussed placement states that he is agreeable with that but that he can live on his own. Patient continues to attend groups and activities and slept for 6 hours last night and reports no further ear pain. Patient was seen by surgical consult yesterday placed on drops for his ear wax as well as an antibiotic for his gingivitis. Plan: Patient continues on his current medication of Celexa 20 mg and Abilify 2 mg, we continue to await placement in a supervised living situation.
[2017-11-22] MEDS: MELATONIN 3 MG TABLET PO SCH (20:38)
[2017-11-23] MEDS: ACETAMINOPHEN TAB 325 MG TAB PO PRN ×2 (03:23→22:40)
[2017-11-23] MEDS: FERROUS SULFATE 325 MG TAB PO SCH (09:05)
[2017-11-23] MEDS: STRIBILD PO SCH (09:05)
[2017-11-23] MEDS: ARIPiprazole 2 MG TAB PO SCH (09:05)
[2017-11-23] MEDS: APIXABAN 5 MG TAB PO SCH ×2 (09:05→21:15)
[2017-11-23] MEDS: CITALOPRAM HYDROBROMIDE 20 MG TAB PO SCH (09:05)
[2017-11-23] MEDS: CLINDAMYCIN 150 MG CAP PO SCH ×2 (09:05→21:15)
[2017-11-23] MEDS: GABAPENTIN 300 MG CAP PO SCH ×3 (09:06→21:15)
[2017-11-23] MEDS: OFLOXACIN 0.3% OPHTH DROPS 5 ML BOTTLE RIGHT EAR SCH ×2 (09:08→21:16)
[2017-11-23] MEDS: HYDROCHLOROTHIAZIDE PO SCH (09:08)
[2017-11-23] MEDS: TRIAMTERENE PO SCH (09:08)
[2017-11-23] MEDS: LORazepam 1 MG TAB PO PRN (12:37)
--- NOTE | 2017-11-23 14:08 | P.PN ---
Progress Note - Text Progress Note Date: 11/23/17 Interval history: Patient is seen in cross coverage today. He is seen in his room. He reports he is feeling very tired. He describes multiple frustrations. He does initially report that he is feeling better and then later in the session seems to relay that he is not feeling better. She makes reference to his brother having committed suicide in the past. He does not seem to voice any adverse ectropion medication side effects. Mental status exam: He is alert and cooperative with the interview. He describes feeling tired. He denies any thoughts of harm to self. He does not voice any thoughts of harm to others. No active evidence of psychosis. He does not verbalize any hallucinations. He does not show any current agitation. Plan: We'll continue to cover this patient through the weekend. Continue current psychotropic medication regimen and continue to monitor his response ongoing treatment.
[2017-11-23] MEDS: LOPERAMIDE 2 MG CAP PO PRN (18:15)
[2017-11-23] MEDS: MELATONIN 3 MG TABLET PO SCH (21:15)
[2017-11-24] MEDS: LOPERAMIDE 2 MG CAP PO PRN ×2 (07:23→07:24)
[2017-11-24] MEDS: APIXABAN 5 MG TAB PO SCH ×3 (09:44→21:15)
[2017-11-24] MEDS: STRIBILD PO SCH (09:44)
[2017-11-24] MEDS: OFLOXACIN 0.3% OPHTH DROPS 5 ML BOTTLE RIGHT EAR SCH ×2 (09:46→21:17)
[2017-11-24] MEDS: ARIPiprazole 2 MG TAB PO SCH (09:46)
[2017-11-24] MEDS: CLINDAMYCIN 150 MG CAP PO SCH ×2 (09:46→21:17)
[2017-11-24] MEDS: HYDROCHLOROTHIAZIDE PO SCH (09:46)
[2017-11-24] MEDS: TRIAMTERENE PO SCH (09:46)
[2017-11-24] MEDS: GABAPENTIN 300 MG CAP PO SCH ×3 (09:46→21:15)
[2017-11-24] MEDS: FERROUS SULFATE 325 MG TAB PO SCH (09:46)
[2017-11-24] MEDS: CITALOPRAM HYDROBROMIDE 20 MG TAB PO SCH (09:46)
--- NOTE | 2017-11-24 13:39 | P.PN ---
Progress Note - Text Progress Note Date: 11/24/17 Interval history: Patient seen in cross coverage today again. He was found in the dining room eating lunch. He is agreeable to come to the interviewer room. He is seated in a wheelchair. He does describe being bothered by some diarrhea. Overall he appears to be feeling better today with his mood. Mental status exam: He is alert and cooperative with the interview. His mood today seems to be better. He denies any thoughts of harm to self or others. He does not show any agitation. Plan: We'll maintain current psychotropic medication regimen. We'll continue to monitor his ongoing response to treatment.
[2017-11-24] MEDS: MELATONIN 3 MG TABLET PO SCH (21:15)
[2017-11-25] MEDS: LORazepam 1 MG TAB PO PRN (02:34)
[2017-11-25] MEDS: ACETAMINOPHEN TAB 325 MG TAB PO PRN ×2 (02:34→22:47)
[2017-11-25] MEDS: APIXABAN 5 MG TAB PO SCH ×2 (08:56→20:14)
[2017-11-25] MEDS: STRIBILD PO SCH (08:56)
[2017-11-25] MEDS: GABAPENTIN 300 MG CAP PO SCH ×3 (08:57→20:14)
[2017-11-25] MEDS: CITALOPRAM HYDROBROMIDE 20 MG TAB PO SCH (08:57)
[2017-11-25] MEDS: ARIPiprazole 2 MG TAB PO SCH (08:57)
[2017-11-25] MEDS: HYDROCHLOROTHIAZIDE PO SCH (08:58)
[2017-11-25] MEDS: TRIAMTERENE PO SCH (08:58)
[2017-11-25] MEDS: FERROUS SULFATE 325 MG TAB PO SCH (08:58)
[2017-11-25] MEDS: OFLOXACIN 0.3% OPHTH DROPS 5 ML BOTTLE RIGHT EAR SCH ×3 (08:58→22:47)
[2017-11-25] MEDS: CLINDAMYCIN 150 MG CAP PO SCH ×2 (08:58→20:14)
--- NOTE | 2017-11-25 12:03 | P.PN ---
Progress Note - Text Progress Note Date: 11/25/17 Interval History: Patient is a 27-year-old male who was seen today. Patient again states that he thinks he can live on his own, states that he lost the apartment that he had and doesn't understand why he can't take care of himself. Patient then began crying banging his hands on his thighs stating that he needs to get out of here, that I am evil and then went on a rant about his brother, needing someone to love wanting a , not knowing why he is taking all these medications. Mental Status: Appearance/Attitude: Patient is casually dressed, using a walker to ambulate makes intermittent eye contact and was superficially cooperative. Behavior: Patient became upset during the interview because he is not being discharged to his own apartment, began banging his hands on his thighs crying hysterically Speech/Language: Patient's speech is spontaneous of normal volume and rhythm and he is coherent Thought Process: Patient is goal-directed no evidence of loose association or flight of ideas Thought Content: Patient denies auditory or visual hallucinations no delusions or paranoid ideation or elicited. Patient again became quite upset today when he talked about why he can't be discharged on his own, ranting about his brother , one a , wanting a child, wanting someone to love him and crying hysterically. Patient complains that he can't use the phone has no access to his friend's and that I'm evil. Patient complains that he had diarrhea over the weekend which has resolved. Suicidal/Homicidal Ideation: Patient denies any current suicidal or homicidal ideation Sensorium/Cognition: Patient is alert and oriented to person, place and situation. Patient continues to insist that he can live on his own, feels he needs no supervision Mood/Affect: Patient's mood remains labile and his affect is appropriate to his mood Insight/Judgment: Patient's insight and judgment are limited Assessment: Patient continues to complain that he lost his apartment, feels that he is able to live on his own, and then rants on about his brother's , wanting a , wanting a child and goes on and on after he and I discussed the fact that he will not be living on his own. Patient complains about being in [facility], then asking to be sent to [facility]. Patient has limited insight into his illness. Patient does attend groups and activities. Plan: Patient continues on Abilify 2 mg and Celexa 20 mg to stabilize his mood. Continue to await placement plans before this patient is discharged.
[2017-11-25] MEDS: MELATONIN 3 MG TABLET PO SCH (20:14)
[2017-11-26] MEDS: LORazepam 1 MG TAB PO PRN ×2 (01:23→17:10)
[2017-11-26] MEDS: APIXABAN 5 MG TAB PO SCH ×2 (08:57→21:14)
[2017-11-26] MEDS: GABAPENTIN 300 MG CAP PO SCH ×3 (08:57→21:14)
[2017-11-26] MEDS: CITALOPRAM HYDROBROMIDE 20 MG TAB PO SCH (08:57)
[2017-11-26] MEDS: CLINDAMYCIN 150 MG CAP PO SCH ×2 (08:57→21:14)
[2017-11-26] MEDS: FERROUS SULFATE 325 MG TAB PO SCH (08:57)
[2017-11-26] MEDS: STRIBILD PO SCH (08:57)
[2017-11-26] MEDS: ARIPiprazole 2 MG TAB PO SCH (08:57)
[2017-11-26] MEDS: OFLOXACIN 0.3% OPHTH DROPS 5 ML BOTTLE RIGHT EAR SCH ×2 (08:58→21:14)
[2017-11-26] MEDS: TRIAMTERENE PO SCH (08:59)
[2017-11-26] MEDS: HYDROCHLOROTHIAZIDE PO SCH (08:59)
--- NOTE | 2017-11-26 14:35 | P.PN ---
Progress Note - Text Progress Note Date: 11/26/17 Interval History: Patient is a 27-year-old male who was seen today. Patient states that he is upset that he is not looking for his own apartment. He again continued to complain that he can take care of himself, that no one is looking out for him and he doesn't understand why he is here, and "I deserve better, I deserve everything". Patient stated he had no idea why he urinated at the side of his bed last night, states that he doesn't want to be here because of leg snf, he doesn't want to live in a assisted with a bunch of "retards" and "other old people like are here". Mental Status: Appearance/Attitude: Patient is using a walker to ambulate, is casually dressed and makes only intermittent eye contact and is superficially cooperative Behavior: Patient did not display any psychomotor retardation but throughout the interview was sobbing at times hysterically at other times banging or rubbing his hands on his legs Speech/Language: Patient's speech is spontaneous of normal volume and rhythm and he is coherent Thought Process: Patient is goal-directed at times however patient will go off on a rant, just rambling on and on about his complaints about being here, being able to live independently making a birthday cake for his brother Thought Content: Patient denies any auditory or visual hallucinations and no delusions or paranoid ideation were elicited. Patient did not sleep well last night he could not tell me why, his appetite remains good Suicidal/Homicidal Ideation: Patient denied any current suicidal or homicidal ideation Sensorium/Cognition: Patient is alert and oriented to person, place and location Mood/Affect: Patient's mood remains labile with periods of crying and sobbing his affect is appropriate to his mood Insight/Judgment: Patient's insight and judgment are impaired Assessment: Patient continues to focus on wanting his own apartment, we continued to discuss the fact that he needs to live in a supervised setting, patient continues to report that no one is looking out for his interests, the public guardian's don't care about him, that he can take care of himself and begins to sob hysterically. Patient has been incontinent at night, he has not been sleeping well at night it is unclear why. Patient does attend groups and activities. Plan: Patient continues on Abilify 2 mg and Celexa 20 mg, continues to have difficulties understanding the need for supervised living situation and we reviewed this on each visit. Patient continues to require hospitalization to arrange for appropriate discharge.
[2017-11-26] MEDS: MELATONIN 3 MG TABLET PO SCH (21:14)
[2017-11-26] MEDS: ACETAMINOPHEN TAB 325 MG TAB PO PRN (23:19)
[2017-11-27] MEDS: IBUPROFEN 600 MG TAB PO PRN (01:59)
[2017-11-27] MEDS: FERROUS SULFATE 325 MG TAB PO SCH (09:21)
[2017-11-27] MEDS: APIXABAN 5 MG TAB PO SCH ×2 (09:22→21:30)
[2017-11-27] MEDS: ARIPiprazole 2 MG TAB PO SCH (09:22)
[2017-11-27] MEDS: GABAPENTIN 300 MG CAP PO SCH ×3 (09:22→21:30)
[2017-11-27] MEDS: CLINDAMYCIN 150 MG CAP PO SCH ×2 (09:22→21:30)
[2017-11-27] MEDS: CITALOPRAM HYDROBROMIDE 20 MG TAB PO SCH (09:22)
[2017-11-27] MEDS: STRIBILD PO SCH (09:23)
[2017-11-27] MEDS: OFLOXACIN 0.3% OPHTH DROPS 5 ML BOTTLE RIGHT EAR SCH ×2 (09:25→21:30)
[2017-11-27] MEDS: HYDROCHLOROTHIAZIDE PO SCH (09:25)
[2017-11-27] MEDS: TRIAMTERENE PO SCH (09:25)
[2017-11-27] MEDS: LORazepam 1 MG TAB PO PRN (12:01)
--- NOTE | 2017-11-27 14:05 | P.PN ---
Progress Note - Text Progress Note Date: 11/27/17 Interval History: Patient is a 27-year-old male who is being seen and states that he doesn't want to be here. He continues to complain that everybody has left him, that he is not contact his grandmother anymore isn't in any close that fit and no one is giving him a chance to accomplish anything. He continues to report that he feels like he is in [facility] the nurses are rude to him. He stated to me that his grandmother's . Patient states that he wants to leave and live on his own. Then stated that "I want to be somebody I want to adopt so someone will love me". Patient states he didn't sleep last night but is unable to tell me why he is having difficulty sleeping. Mental Status: Appearance/Attitude: Patient is casually dressed continues to use a walker to ambulate makes intermittent eye contact and is cooperative Behavior: Patient does not exhibit any psychomotor agitation or retardation however again during the interview began to cry or rub his hands over his legs Speech/Language: Patient's speech is spontaneous of normal volume and rhythm and he is coherent Thought Process: Patient is goal-directed there is evidence of loose association or flight of ideas however the patient continues to have these periods where he will just rant about being in here, what he wants to do with his life and other complaints that he has. Thought Content: Patient denies any auditory or visual hallucinations and no delusions or paranoid ideation or elicited. Patient states that he isn't sleeping but can't tell me why. Patient states that his appetite is good. Patient complains that nobody is taking care of him nobody is looking for a place for them to live, he states that he is not contact his grandmother anymore and continues to feel like he is in [facility]. Suicidal/Homicidal Ideation: Patient denies any current suicidal or homicidal ideation Sensorium/Cognition: Patient is alert and oriented to person, place, and time Mood/Affect: Patient's mood remains labile at times and his affect appropriate to his mood Insight/Judgment: Patient's insight and judgment are limited. Patient has evidence on his MRI of white matter damage and cerebral atrophy most likely secondary to his HIV. Assessment: Patient continues to feel that he can live on his own, states that he is not having side effects his grandmother anymore because no one is helping him find a place to live, states that he can live on his own in an apartment. Patient is not sleeping well at night documented he slept 2 hours last night. Patient has been attending groups and activities. Plan: Patient will continue on Abilify 2 mg daily, we will increase his Celexa to 30 mg to stabilize his mood increases melatonin to 5 mg at bedtime to improve his sleep. Patient and I again discussed the fact that his guardians are looking for a place for him to live, that he is not going to be living independently. Patient continues to require hospitalization until discharge placement is arranged.
[2017-11-27] MEDS: MELATONIN 3 MG TABLET PO SCH (21:30)
[2017-11-27] MEDS: ACETAMINOPHEN TAB 325 MG TAB PO PRN (22:28)
[2017-11-28] MEDS: IBUPROFEN 600 MG TAB PO PRN (03:09)
[2017-11-28] MEDS: LORazepam 1 MG TAB PO PRN (03:09)
[2017-11-28] MEDS: STRIBILD PO SCH (08:55)
[2017-11-28] MEDS: OFLOXACIN 0.3% OPHTH DROPS 5 ML BOTTLE RIGHT EAR SCH ×2 (08:55→19:45)
[2017-11-28] MEDS: FERROUS SULFATE 325 MG TAB PO SCH (08:55)
[2017-11-28] MEDS: GABAPENTIN 300 MG CAP PO SCH ×3 (08:55→19:44)
[2017-11-28] MEDS: ARIPiprazole 2 MG TAB PO SCH (08:55)
[2017-11-28] MEDS: CITALOPRAM HYDROBROMIDE 10 MG TAB PO SCH (08:55)
[2017-11-28] MEDS: CLINDAMYCIN 150 MG CAP PO SCH ×2 (08:55→19:44)
[2017-11-28] MEDS: APIXABAN 5 MG TAB PO SCH ×2 (08:56→19:45)
[2017-11-28] MEDS: TRIAMTERENE PO SCH (08:57)
[2017-11-28] MEDS: HYDROCHLOROTHIAZIDE PO SCH (08:57)
[2017-11-28] MEDS: ACETAMINOPHEN TAB 325 MG TAB PO PRN (09:42)
[2017-11-28] MEDS: LORazepam 0.5 MG TAB PO PRN ×2 (09:42→19:45)
--- NOTE | 2017-11-28 15:06 | P.PN ---
Progress Note - Text Progress Note Date: 11/28/17 Interval History: Patient is a 27-year-old male who was seen today, he reports that he slept better last night, was napping earlier this afternoon. Patient states that he is not had any crying spells was not incontinent of urine last night. Patient states that he feels better with the increase in the Celexa and melatonin. Patient discussed placement and his frustration with it in a more appropriate fashion today. Mental Status: Appearance/Attitude: Patient is casually dressed using a walker to ambulate makes good eye contact and was cooperative. Behavior: Patient does not sling psychomotor agitation or retardation. Speech/Language: Patient's speech is spontaneous of normal volume and rhythm and he is coherent Thought Process: Patient is goal-directed no evidence of loose association or flight of ideas Thought Content: Patient denied any auditory or visual hallucinations and no delusions or paranoid ideation were elicited. Patient's interactions today regarding his frustration with placement were much more appropriate, there was no crying or sobbing and no rant about multiple complaints. Patient states that he feels better today, feels that he slept better last night and states he has not had any crying spells. Suicidal/Homicidal Ideation: Patient denies any current suicidal or homicidal ideation Sensorium/Cognition: Patient is alert and oriented to person, place, and time Mood/Affect: Patient's mood is more stable affect more appropriate Insight/Judgment: Patient's insight and judgment are fair Assessment: Patient states he feels better today, no crying spells and he was much more appropriate discussing his frustration with placement, did not complain about being placed and did not go into a rant as he has in the past. Patient states that he slept better, states he is been attending groups and activities. Patient reports no side effects from the medication and felt the increase of melatonin and Celexa had been beneficial. Plan: Patient will continue on Abilify 2 mg daily, melatonin 5 mg at bedtime and Celexa 30 mg daily. Patient remains in the hospital awaiting appropriate placement.
[2017-11-28] MEDS: MELATONIN 3 MG TABLET PO SCH (19:45)
[2017-11-29] MEDS: ACETAMINOPHEN TAB 325 MG TAB PO PRN ×2 (03:27→16:01)
[2017-11-29] MEDS: LORazepam 0.5 MG TAB PO PRN ×2 (07:39→19:39)
[2017-11-29] MEDS: STRIBILD PO SCH (09:07)
[2017-11-29] MEDS: APIXABAN 5 MG TAB PO SCH ×2 (09:08→20:55)
[2017-11-29] MEDS: TRIAMTERENE PO SCH (09:10)
[2017-11-29] MEDS: CITALOPRAM HYDROBROMIDE 10 MG TAB PO SCH (09:10)
[2017-11-29] MEDS: GABAPENTIN 300 MG CAP PO SCH ×3 (09:10→20:55)
[2017-11-29] MEDS: OFLOXACIN 0.3% OPHTH DROPS 5 ML BOTTLE RIGHT EAR SCH ×2 (09:10→20:57)
[2017-11-29] MEDS: FERROUS SULFATE 325 MG TAB PO SCH (09:10)
[2017-11-29] MEDS: HYDROCHLOROTHIAZIDE PO SCH (09:10)
[2017-11-29] MEDS: ARIPiprazole 2 MG TAB PO SCH (09:10)
--- NOTE | 2017-11-29 12:46 | P.PN ---
Progress Note - Text Progress Note Date: 11/29/17 Interval History: Patient is a 27-year-old male who was seen today and he reports that he only slept several hours last night because he was up and down about still being in the hospital. He states that he struggles to continue to be here and was napping during the day yesterday. He reports that his mood is better with the increase in Celexa. Patient reports no side effects from any of the medication. Mental Status: Appearance/Attitude: Patient is casually dressed uses a walker to ambulate made good eye contact and was cooperative. Behavior: Patient did not exhibit any psychomotor agitation or retardation Speech/Language: Patient's speech was spontaneous and normal volume and rhythm and he was coherent Thought Process: Patient was goal-directed there is no evidence of loose association or flight of ideas Thought Content: Patient denied any auditory or visual hallucinations no delusions or paranoid ideation were elicited. Patient was able to talk calmly about his struggles with continuing to be in the hospital, stated that he had spoken with his guardians yesterday and they had discussed a possible snf with him. Patient states that he is frustrated with being in the hospital but has not been tearful or sobbing during our interviews yesterday and today. Patient states he didn't sleep well last night but he had been napping during the day. Suicidal/Homicidal Ideation: Patient denies any current suicidal or homicidal ideation Sensorium/Cognition: Patient alert and oriented to person, place, and time Mood/Affect: Patient's mood is more stable, his affect is appropriate Insight/Judgment: Patient's insight and judgment are fair Assessment: Patient reports that he continues to struggles with being here, however his response today is more appropriate, less labile and there is no warrant as he has in the past. Patient is no longer sobbing or crying during the interviews. Patient states that he spoke with his public guardian yesterday and they discussed the possible discharge plan and location with him. I spoke with the social secretary today and she confirms that they are looking at a possible placement but he probably will not occur until the beginning of next week. Patient reports no side effects from the medication. Plan: Patient will continue on Celexa 30 mg daily, Abilify 2 mg daily and melatonin 5 mg at bedtime. Patient is doing better with the increase in the Celexa, we continue to await placement per the guardians.
[2017-11-29] MEDS: IBUPROFEN 600 MG TAB PO PRN (17:10)
[2017-11-29] MEDS: MELATONIN 3 MG TABLET PO SCH (20:55)
[2017-11-30] MEDS: ACETAMINOPHEN TAB 325 MG TAB PO PRN ×3 (03:16→21:41)
[2017-11-30] MEDS: APIXABAN 5 MG TAB PO SCH ×2 (09:21→20:44)
[2017-11-30] MEDS: STRIBILD PO SCH (09:21)
[2017-11-30] MEDS: ARIPiprazole 2 MG TAB PO SCH (09:21)
[2017-11-30] MEDS: OFLOXACIN 0.3% OPHTH DROPS 5 ML BOTTLE RIGHT EAR SCH ×2 (09:22→20:44)
[2017-11-30] MEDS: TRIAMTERENE PO SCH (09:22)
[2017-11-30] MEDS: HYDROCHLOROTHIAZIDE PO SCH (09:22)
[2017-11-30] MEDS: GABAPENTIN 300 MG CAP PO SCH ×3 (09:22→20:44)
[2017-11-30] MEDS: FERROUS SULFATE 325 MG TAB PO SCH (09:22)
[2017-11-30] MEDS: CITALOPRAM HYDROBROMIDE 10 MG TAB PO SCH (09:22)
[2017-11-30] MEDS: LORazepam 0.5 MG TAB PO PRN ×2 (09:23→21:23)
--- NOTE | 2017-11-30 11:35 | P.PN ---
Progress Note - Text Progress Note Date: 11/30/17 Interval History: Patient is a 27-year-old male who was seen today and states that he got up last night because he was angry and then went on a rant about being homeless not getting over his brother's wanting to live in his own apartment that his grandmother is arranged housing for him. Patient was incontinent of urine last night and he states that's why he was angry and upset. He then stated that no one cares about him. Patient's then stated that he had arranged a place to live and will be leaving on Saturday and his guardian and grandmother have approved it. Mental Status: Appearance/Attitude: Patient is in a wheelchair today, makes eye contact and was superficially cooperative Behavior: Patient does not exhibit any psychomotor agitation or retardation. Speech/Language: Patient's speech is of normal volume and rhythm and he is coherent Thought Process: Patient again went on a long rant about no one caring for him, needing a place to live, not getting over his brother's Thought Content: Patient denies auditory or visual hallucinations and no delusions or paranoid ideation were elicited. Patient has an episode last night and waking up in the middle the night after he was incontinent of urine and yelling and screaming but is unable to tell me why. He stated that he is homeless and then stated that he is arranged for a place to live and went on another rant about no one caring about him etc. Patient appetite is good. Suicidal/Homicidal Ideation: Patient denies any current suicidal or homicidal ideation Sensorium/Cognition: Patient is alert and oriented to person, place, and time Mood/Affect: Patient's mood is labile and his affect is appropriate to his mood Insight/Judgment: Patient's insight and judgment are limited Assessment: Patient had an episode of yelling and screaming last night after being incontinent of urine. Patient received IM Ativan. Patient states again today that no one cares about him that he is homeless and then goes on to state he is arranged for housing for himself, is not over his brother's , states that his guardian, his grandmother has approved a place for him to live. Patient has been attending groups and activities. Plan: Patient continues on Celexa 30 mg and Abilify 2 mg and we continue to work toward a placement for him. Patient continues to require hospitalization until an appropriate placement was arranged.
[2017-11-30] MEDS: MELATONIN 3 MG TABLET PO SCH (20:44)
[2017-12-01] MEDS: IBUPROFEN 600 MG TAB PO PRN ×3 (01:02→23:50)
[2017-12-01] MEDS: CITALOPRAM HYDROBROMIDE 10 MG TAB PO SCH (08:43)
[2017-12-01] MEDS: GABAPENTIN 300 MG CAP PO SCH ×3 (08:43→20:14)
[2017-12-01] MEDS: ARIPiprazole 2 MG TAB PO SCH (08:43)
[2017-12-01] MEDS: FERROUS SULFATE 325 MG TAB PO SCH (08:44)
[2017-12-01] MEDS: TRIAMTERENE PO SCH (08:44)
[2017-12-01] MEDS: APIXABAN 5 MG TAB PO SCH ×2 (08:44→20:13)
[2017-12-01] MEDS: HYDROCHLOROTHIAZIDE PO SCH (08:44)
[2017-12-01] MEDS: OFLOXACIN 0.3% OPHTH DROPS 5 ML BOTTLE RIGHT EAR SCH ×2 (08:44→20:14)
[2017-12-01] MEDS: STRIBILD PO SCH (08:44)
[2017-12-01] MEDS: ACETAMINOPHEN TAB 325 MG TAB PO PRN (11:02)
--- NOTE | 2017-12-01 12:42 | P.PN ---
Progress Note - Text Progress Note Date: 12/01/17 Interval History: Patient is a 27-year-old male who was seen in his room today, patient states he was taking a nap because he got up early this morning. Patient states that he is bored here Suni's made a lot of friends and he is wondering if he will be accepted at the jail that was discussed with him on Saturday. Patient states that he is not having any suicidal thoughts. Patient states his appetite is good. States that he's been attending groups and activities. Mental Status: Appearance/Attitude: Patient is casually dressed, was seen in his room where he was taking a nap. Patient made good eye contact and was cooperative. Behavior: Patient did not exhibit any psychomotor agitation or retardation. Speech/Language: Patient's speech was spontaneous of normal volume and rhythm and he is coherent. Thought Process: Patient was goal-directed there is no evidence of loose association or flight of ideas Thought Content: Patient denied any auditory or visual hallucinations no delusions or paranoid ideation were elicited. Patient states that he slept well last night and his appetite is good. He states that he is getting bored here but is made many friends. He wonders when we will hear about a jail. Suicidal/Homicidal Ideation: Patient reports no current suicidal or homicidal ideation Sensorium/Cognition: Patient is alert and oriented to person, place, and time Mood/Affect: Patient's mood remains labile at times and his affect is appropriate Insight/Judgment: Patient's insight and judgment are fair Assessment: Patient today did not go off onto a rant complaining about being here but was questioning appropriately when we would hear about jail placement, stating that he is attending groups and activities and has made friends patient states that he sleeping well. He reported no side effects from the medications. Plan: She will continue on Abilify 2 mg daily and Celexa 30 mg to target his mood. Melatonin to to target his sleep. We continued to await appropriate placement for discharge.
[2017-12-01] MEDS: LORazepam 0.5 MG TAB PO PRN (17:34)
[2017-12-01] MEDS: MELATONIN 3 MG TABLET PO SCH (20:14)
[2017-12-02] MEDS: LORazepam 0.5 MG TAB PO PRN ×2 (05:39→16:32)
[2017-12-02] MEDS: APIXABAN 5 MG TAB PO SCH ×2 (10:09→21:07)
[2017-12-02] MEDS: ARIPiprazole 2 MG TAB PO SCH (10:10)
[2017-12-02] MEDS: CITALOPRAM HYDROBROMIDE 10 MG TAB PO SCH (10:11)
[2017-12-02] MEDS: FERROUS SULFATE 325 MG TAB PO SCH (10:11)
[2017-12-02] MEDS: STRIBILD PO SCH (10:11)
[2017-12-02] MEDS: GABAPENTIN 300 MG CAP PO SCH ×4 (10:11→21:07)
[2017-12-02] MEDS: TRIAMTERENE PO SCH (10:13)
[2017-12-02] MEDS: HYDROCHLOROTHIAZIDE PO SCH (10:13)
[2017-12-02] MEDS: OFLOXACIN 0.3% OPHTH DROPS 5 ML BOTTLE RIGHT EAR SCH ×2 (10:16→11:33)
[2017-12-02] MEDS: ACETAMINOPHEN TAB 325 MG TAB PO PRN (11:31)
[2017-12-02] MEDS: IBUPROFEN 600 MG TAB PO PRN (12:27)
--- NOTE | 2017-12-02 14:57 | P.PN ---
Progress Note - Text Progress Note Date: 12/02/17 Interval History: Patient is a 27-year-old male who was seen today, he reports that he had a good evening and a good day so far. He states he joined the groups and activities and had no complaints today. Patient did not complain about being in the hospital and awaiting placement. Patient reports he slept fairly well last night and was not incontinent of urine. Mental Status: Appearance/Attitude: Patient is casually dressed, using a walker to ambulate makes good eye contact and was cooperative. Behavior: Patient does not exhibit any psychomotor agitation or retardation. Speech/Language: Patient's speech is spontaneous of normal volume and rhythm and he is coherent. Thought Process: He does not exhibit any psychomotor agitation or retardation Thought Content: Patient denies any auditory or visual hallucinations no delusions or paranoid ideation are elicited. Patient states that he is frustrated with the wait for placement, but did not complain today as he has in the past and did not become tearful. Patient states he is sleeping and eating well. He reports he is attending groups and activities. Suicidal/Homicidal Ideation: Patient denies any current suicidal or homicidal ideation Sensorium/Cognition: Patient is alert and oriented to person, place and time Mood/Affect: His mood is more stable today his affect is appropriate Insight/Judgment: Patient's insight and judgment are fair Assessment: Patient today was frustrated with the lack of placement however he did not become tearful or agitated. Patient states that he slept well and has had a good day so far and is attending groups and activities. Patient reports that he is doing well on the medications and is not having any side effects. Plan: Patient continues on Celexa 30 mg daily, Abilify 2 mg daily and melatonin 3 mg at bedtime. We continue to await appropriate placement for this patient.
[2017-12-02] MEDS: MELATONIN 3 MG TABLET PO SCH (21:08)
[2017-12-03] MEDS: LORazepam 0.5 MG TAB PO PRN ×2 (01:47→13:43)
[2017-12-03] MEDS: OFLOXACIN 0.3% OPHTH DROPS 5 ML BOTTLE RIGHT EAR SCH ×4 (01:48→20:54)
[2017-12-03] MEDS: ACETAMINOPHEN TAB 325 MG TAB PO PRN (08:13)
[2017-12-03] MEDS: TRIAMTERENE PO SCH (09:17)
[2017-12-03] MEDS: APIXABAN 5 MG TAB PO SCH ×2 (09:17→20:53)
[2017-12-03] MEDS: STRIBILD PO SCH (09:17)
[2017-12-03] MEDS: HYDROCHLOROTHIAZIDE PO SCH (09:17)
[2017-12-03] MEDS: GABAPENTIN 300 MG CAP PO SCH ×3 (09:19→20:54)
[2017-12-03] MEDS: CITALOPRAM HYDROBROMIDE 10 MG TAB PO SCH (09:19)
[2017-12-03] MEDS: ARIPiprazole 2 MG TAB PO SCH (09:19)
[2017-12-03] MEDS: FERROUS SULFATE 325 MG TAB PO SCH (09:20)
--- NOTE | 2017-12-03 13:59 | P.PN ---
Progress Note - Text Progress Note Date: 12/03/17 Interval History: Patient is a 27-year-old male who was seen today and he states that he spoke with one of his guardian. Morning and that they are investigating a place in care home. Patient again began ranting about being in here , why he can't live in his own apartment with caregivers that her friends of his , no one cares about him. Patient did not become tearful or begins sobbing. Patient states that he didn't sleep well last night because he was thinking about placement as well as the fact that he dislikes being in here. Mental Status: Appearance/Attitude: Patient is casually dressed, using a walker to ambulate, makes intermittent eye contact and was cooperative Behavior: Patient did not exhibit any psychomotor agitation or retardation. Speech/Language: Patient's speech is spontaneous of normal volume and rhythm and he is coherent Thought Process: Patient is goal-directed however again today when on a rant about being in here, no one caring, that he could live alone Thought Content: Patient denies any auditory or visual hallucinations and no delusions or paranoid ideation or elicited. Patient states that he is frustrated with continued stay in the hospital, feels like he is in care home. Patient states he didn't sleep well last night because he is upset about being in the hospital. Suicidal/Homicidal Ideation: Patient denies any suicidal or homicidal ideation at this time Sensorium/Cognition: Patient is alert and oriented to person, place, and time Mood/Affect: Patient mood is labile at times and his affect is appropriate to his mood Insight/Judgment: Patient's insight and judgment are fair Assessment: Patient states that he contacted his coguardian, the public guardian this morning and was told that they are contacting a place in [place], however in team treatment meeting social work is not been contacted by the public guardian regarding any placement options as they stated that they were looking into something. Patient continues to get upset about his length of stay , the fact that he needs to go to a placement and continues to rant about being able to live on his own having friends act as his caregivers etc. Patient's grandmother is also becoming frustrated and she is his other coguardian with the lack of placement. Plan: Patient will continue on Celexa 30 mg, Abilify 2 mg and will increase melatonin to 5 mg at bedtime to assist with sleep. Patient remains in the hospital awaiting appropriate placement plans.
[2017-12-03] MEDS: IBUPROFEN 600 MG TAB PO PRN (17:18)
[2017-12-03] MEDS: MELATONIN 5 MG TABLET PO SCH (20:54)
[2017-12-04] MEDS: LORazepam 0.5 MG TAB PO PRN ×2 (04:20→14:49)
[2017-12-04] MEDS: ACETAMINOPHEN TAB 325 MG TAB PO PRN (04:20)
[2017-12-04] MEDS: IBUPROFEN 600 MG TAB PO PRN (07:39)
[2017-12-04] MEDS: HYDROCHLOROTHIAZIDE PO SCH (08:31)
[2017-12-04] MEDS: TRIAMTERENE PO SCH (08:31)
[2017-12-04] MEDS: APIXABAN 5 MG TAB PO SCH ×2 (08:31→20:55)
[2017-12-04] MEDS: OFLOXACIN 0.3% OPHTH DROPS 5 ML BOTTLE RIGHT EAR SCH ×2 (08:31→20:57)
[2017-12-04] MEDS: STRIBILD PO SCH (08:31)
[2017-12-04] MEDS: FERROUS SULFATE 325 MG TAB PO SCH (08:32)
[2017-12-04] MEDS: GABAPENTIN 300 MG CAP PO SCH ×3 (08:32→20:55)
[2017-12-04] MEDS: CITALOPRAM HYDROBROMIDE 10 MG TAB PO SCH (08:32)
[2017-12-04] MEDS: ARIPiprazole 2 MG TAB PO SCH (08:32)
--- NOTE | 2017-12-04 14:10 | P.PN ---
Progress Note - Text Progress Note Date: 12/04/17 Interval History: Patient is a 27-year-old male who was seen today, patient states that he had a good night and has been feeling better today. Patient and I discussed the possibility of a detention and he was agreeable with that plan. Patient reported that he is been attending groups and activities. Mental Status: Appearance/Attitude: Patient is casually dressed, using a walker to ambulate and makes good eye contact and is cooperative Behavior: Patient does not exhibit any psychomotor agitation or retardation. Speech/Language: Patient speech is of normal volume and rhythm and he is coherent Thought Process: Patient is goal-directed there is no evidence of loose associations or flight of ideas and the patient did not have any recurrence about being here about his guardian about his grandmother etc. today Thought Content: Patient denied any auditory or visual hallucinations and no delusions or paranoid ideation were elicited. Patient states that he slept well last night and feels better this morning. Patient states his appetite is good. He reports that he is not feeling depressed or overwhelmed and was less frustrated today. Suicidal/Homicidal Ideation: Denies any current suicidal or homicidal ideation Sensorium/cognition: Patient is alert and oriented to person, place, and time Insight/Judgment: Patient's insight and judgment are fair Assessment: patient states that he slept well last night is attending groups and activities and was not as frustrated today. Patient states that he is not having any suicidal ideation and did not rant or complain today about being in the hospital and placement. Patient reports no side effects from the medication. Was discussed in the team meeting that there is a possibility of a placement at a detention and we are awaiting approval of the guardian's and payment issues., This will be discussed with the patient's once this has been finalized. Plan: Patient continue on Abilify 2 mg daily and Celexa 30 mg daily and melatonin 5 mg at bedtime. Patient continues to await placement prior to discharge. Should the plans for the detention be finalized patient can be discharged tomorrow.
[2017-12-04] MEDS: MELATONIN 5 MG TABLET PO SCH (20:55)
[2017-12-05] MEDS: LORazepam 0.5 MG TAB PO PRN ×2 (05:28→17:51)
[2017-12-05] MEDS: ACETAMINOPHEN TAB 325 MG TAB PO PRN ×2 (05:29→20:05)
[2017-12-05 09:02] VITALS: BMI 32.3
[2017-12-05] MEDS: ARIPiprazole 2 MG TAB PO SCH (09:10)
[2017-12-05] MEDS: APIXABAN 5 MG TAB PO SCH ×2 (09:10→20:05)
[2017-12-05] MEDS: STRIBILD PO SCH (09:11)
[2017-12-05] MEDS: CITALOPRAM HYDROBROMIDE 10 MG TAB PO SCH (09:11)
[2017-12-05] MEDS: GABAPENTIN 300 MG CAP PO SCH ×3 (09:12→20:05)
[2017-12-05] MEDS: FERROUS SULFATE 325 MG TAB PO SCH (09:12)
[2017-12-05] MEDS: TRIAMTERENE PO SCH (09:13)
[2017-12-05] MEDS: HYDROCHLOROTHIAZIDE PO SCH (09:13)
[2017-12-05] MEDS: OFLOXACIN 0.3% OPHTH DROPS 5 ML BOTTLE RIGHT EAR SCH ×2 (10:00→20:08)
--- NOTE | 2017-12-05 16:18 | P.PN ---
Progress Note - Text Progress Note Date: 12/05/17 Interval History: Patient is a 27-year-old male who was seen today we discussed that we were awaiting placement at a custodial in [place]. Patient states that he is looking forward to discharge from the hospital, he reported that he had no difficulty sleeping last night and feels rested this morning. He stated that he has no suicidal thoughts, and did not go into a rant about being in the hospital, the placement to a custodial. Mental Status: Appearance/Attitude: Patient is casually dressed, using a walker to ambulate, makes good eye contact and was cooperative. Behavior: Patient did not display any psychomotor agitation or retardation. Speech/Language: Speech is spontaneous of normal volume and rhythm and he is coherent. Thought Process: Patient was goal-directed there is no evidence of loose association or flight of ideas Thought Content: Patient denies any auditory or visual hallucinations and no delusions or paranoid ideation or elicited. Patient was able to constructively discuss his frustration with his length of stay home for his discharge tomorrow and did not complain about being sent to a custodial. Patient states that he slept well last evening, has been attending groups and activities and his appetite is good. Suicidal/Homicidal Ideation: Patient denied any current suicidal or homicidal ideation Sensorium/Cognition: Patient is alert and oriented to person, place, and time Mood/Affect: Patient's mood is pleasant and his affect is appropriate Insight/Judgment: Patient's insight and judgment are fair Assessment: patient had a discussion today with his frustrations about being in the hospital for so long, he was able to be discharged to the custodial and made no complaints about going to a custodial and did not go into his rant about not needing to live in a supervised setting, complaining about his grandmother, complaining about being here. Patient's interaction today was appropriate. Patient has been attending groups and activities. Patient states that his sleep is good and he reported no side effects from the medication. Plan: Patient continues on Abilify 2 mg and Celexa 30 mg as well as melatonin 5 mg for sleep. Patient has been accepted at a custodial in [place]. We anticipate discharge tomorrow.
[2017-12-05] MEDS: MELATONIN 5 MG TABLET PO SCH (22:02)
[2017-12-06] MEDS: IBUPROFEN 600 MG TAB PO PRN (06:20)
[2017-12-06] MEDS: LORazepam 0.5 MG TAB PO PRN (06:20)
[2017-12-06 06:42] VITALS: BP 127/88; PULSE 73; RESP 20; TEMP 97.6
[2017-12-06] MEDS: ARIPiprazole 2 MG TAB PO SCH (09:47)
[2017-12-06] MEDS: APIXABAN 5 MG TAB PO SCH (09:47)
[2017-12-06] MEDS: CITALOPRAM HYDROBROMIDE 10 MG TAB PO SCH (09:47)
[2017-12-06] MEDS: GABAPENTIN 300 MG CAP PO SCH (09:47)
[2017-12-06] MEDS: HYDROCHLOROTHIAZIDE PO SCH (09:48)
[2017-12-06] MEDS: TRIAMTERENE PO SCH (09:48)
[2017-12-06] MEDS: STRIBILD PO SCH (09:48)
[2017-12-06] MEDS: OFLOXACIN 0.3% OPHTH DROPS 5 ML BOTTLE RIGHT EAR SCH (09:48)
--- NOTE | 2017-12-06 10:11 | P.DS ---
Providers Date of admission: 11/09/17 13:56 Expected date of discharge: 12/06/17 Attending physician: Natalia Wilkins MD Consults: 11/09/17 14:45 Consult Physician Routine Consulting Provider: Tay Haro Consult Reason/Comments: H & P and medical care Do you want consulting provider notified?: Yes 11/16/17 22:48 Consult Physician Routine Consulting Provider: Tay Haro Consult Reason/Comments: Ear pain Do you want consulting provider notified?: Yes, Notify in am 11/19/17 19:59 Consult Physician Routine Consulting Provider: Tay Haro Consult Reason/Comments: ear pain, headaches Do you want consulting provider notified?: Yes, Notify in am 11/20/17 22:44 Consult Physician Routine Consulting Provider: Sumeet Alcantara Consult Reason/Comments: Ongoing right ear pain Do you want consulting provider notified?: Yes, Notify in am Primary care physician: Stated None Hospital Course: Discharge Diagnosis: Bipolar disorder due to medical condition; 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 Patient's grandmother was a coguardian along with a public guardian. Patient had recently been brought into the hospital for treatment of HIV that had gone untreated for a number of years. Patient was refusing to take his medications at home because he stated that he wanted to . He reported hearing voices, seeing things on and off but admission denied this. He was extremely frustrated and upset and his mood was labile. He was complaining about being irritable, having angry outbursts, sleep difficulties and feeling hopeless and helpless. Patient was using a wheelchair at the time of admission, he was loud , hyperverbal with minimal interaction at times. He made fair eye contact and his mood was irritable and angry. He reported suicidal ideation but stated he had no plans and felt safe on the unit. He denied any homicidal ideation. He was having auditory hallucinations but stated that he was not hearing them at the time of admission. He was paranoid and delusional. His memory was impaired and short-term and his long-term memory was intact. Patient had poor insight and judgment. Hospital Course: patient was admitted on a voluntary basis, his co-guardians were informed and agreed with the admission and he was placed on routine observation as well as group and activity therapy were ordered. Patient also had routine laboratory studies as well as a medical consultation. Patient was continued on all of his previous medications for his medical problems. Patient was begun on Abilify 2 mg daily as a mood stabilizer as well as Celexa to target his moods. Patient continued to report labile moods, he would periodically during his interviews become quite tearful at times sobbing almost hysterically and going into a rant about his brother, his grandmother, his ability to live on his own, why he was in the hospital, he felt like he was in correction. These periods became less frequent the patient's Celexa was increased to a maximum dose of 30 mg daily to target his depressive symptoms. Patient was also placed on melatonin increased to 5 mg at bedtime to assist with his sleep. Patient reported no further auditory hallucinations and was no evidence of delusional or paranoid ideation on the unit. Patient denied that he was feeling suicidal and stated that he had never been feeling that way. Patient was attending groups and activities. Patient was incontinent of urine at night on many occasions. Patient also complained of ear pain was seen by a physician and placed on clindamycin to target his poor oral health as well as being given eardrops. Patient responded to the medications and his mood eventually stabilized, there were no further outbursts of sobbing hysterically, and his ranting and complaining about being in the hospital, being able to live independently complaining about his grandmother . Patient was accepting of the fact that he needed to live in a supervised situation and was becoming frustrated with the lengthy delay in obtaining this. Patient continued to be compliant with medication, reported no suicidal ideation there is no evidence of psychotic process and his mood was much more stable. Patient was sleeping and eating well. Allergies No Known Allergies Allergy (Verified 11/09/17 13:05) Laboratory Last Values WBC 5.4 k/uL (3.8-10.6) 11/10/17 08:12 RBC 4.29 m/uL (4.30-5.90) L 11/10/17 08:12 Hgb 13.6 gm/dL (13.0-17.5) 11/10/17 08:12 Hct 42.2 % (39.0-53.0) 11/10/17 08:12 MCV 98.2 fL (80.0-100.0) 11/10/17 08:12 MCH 31.6 pg (25.0-35.0) 11/10/17 08:12 MCHC 32.2 g/dL (31.0-37.0) 11/10/17 08:12 RDW 14.0 % (11.5-15.5) 11/10/17 08:12 Plt Count 338 k/uL (150-450) 11/10/17 08:12 Neutrophils % 54 % 11/10/17 08:12 Lymphocytes % 32 % 11/10/17 08:12 Monocytes % 8 % 11/10/17 08:12 Eosinophils % 2 % 11/10/17 08:12 Basophils % 1 % 11/10/17 08:12 Neutrophils # 3.0 k/uL (1.3-7.7) 11/10/17 08:12 Lymphocytes # 1.8 k/uL (1.0-4.8) 11/10/17 08:12 Monocytes # 0.5 k/uL (0-1.0) 11/10/17 08:12 Eosinophils # 0.1 k/uL (0-0.7) 11/10/17 08:12 Basophils # 0.0 k/uL (0-0.2) 11/10/17 08:12 Sodium 142 mmol/L (137-145) 11/10/17 08:12 Potassium 4.4 mmol/L (3.5-5.1) 11/10/17 08:12 Chloride 105 mmol/L (98-107) 11/10/17 08:12 Carbon Dioxide 27 mmol/L (22-30) 11/10/17 08:12 Anion Gap 10 mmol/L 11/10/17 08:12 BUN 17 mg/dL (9-20) 11/10/17 08:12 Creatinine 1.00 mg/dL (0.66-1.25) 11/10/17 08:12 Est GFR (CKD-EPI)AfAm >90 (>60 ml/min/1.73 sqM) 11/10/17 08:12 Est GFR (CKD-EPI)NonAf >90 (>60 ml/min/1.73 sqM) 11/10/17 08:12 Glucose 88 mg/dL (74-99) 11/10/17 08:12 Calcium 10.0 mg/dL (8.4-10.2) 11/10/17 08:12 Total Bilirubin 0.3 mg/dL (0.2-1.3) 11/10/17 08:12 Conjugated Bilirubin 0.0 mg/dL (0.0-0.3) 11/10/17 08:12 Unconjugated Bilirubin 0.1 mg/dL (0.0-1.1) 11/10/17 08:12 Delta Bilirubin 0.2 mg/dL (0.0-0.2) 11/10/17 08:12 AST 37 U/L (17-59) 11/10/17 08:12 ALT 29 U/L (21-72) 11/10/17 08:12 Alkaline Phosphatase 91 U/L (38-126) 11/10/17 08:12 Total Protein 8.5 g/dL (6.3-8.2) H 11/10/17 08:12 Albumin 4.3 g/dL (3.5-5.0) 11/10/17 08:12 TSH 1.830 mIU/L (0.465-4.680) 11/10/17 08:12 Urine Color Light Yellow 11/19/17 17:44 Urine Appearance Clear (Clear) 11/19/17 17:44 Urine pH 7.0 (5.0-8.0) 11/19/17 17:44 Ur Specific [place] 1.012 (1.001-1.035) 11/19/17 17:44 Urine Protein Negative (Negative) 11/19/17 17:44 Urine Glucose (UA) Negative (Negative) 11/19/17 17:44 Urine Ketones Negative (Negative) 11/19/17 17:44 Urine Blood Negative (Negative) 11/19/17 17:44 Urine Nitrite Negative (Negative) 11/19/17 17:44 Urine Bilirubin Negative (Negative) 11/19/17 17:44 Urine Urobilinogen <2.0 mg/dL (<2.0) 11/19/17 17:44 Ur Leukocyte Esterase Negative (Negative) 11/19/17 17:44 Urine Opiates Screen Negative ng/mL (Negative) 11/12/17 21:48 Ur Oxycodone Screen Not Detected (NotDetected) 11/09/17 11:41 Urine Methadone Screen Negative ng/mL (Negative) 11/12/17 21:48 Ur Propoxyphene Screen Negative ng/mL (Negative) 11/12/17 21:48 Ur Barbiturates Screen Not Detected (NotDetected) 11/09/17 11:41 Urine Barbiturates Negative ng/mL (Negative) 11/12/17 21:48 U Tricyclic Antidepress Not Detected (NotDetected) 11/09/17 11:41 Ur Phencyclidine Scrn Negative ng/mL (Negative) 11/12/17 21:48 Ur Amphetamine Screen Negative ng/mL (Negative) 11/12/17 21:48 Ur Amphetamines Screen Not Detected (NotDetected) 11/09/17 11:41 U Methamphetamines Scrn Not Detected (NotDetected) 11/09/17 11:41 U Benzodiazepines Scrn Negative ng/mL (Negative) 11/12/17 21:48 Urine Cocaine Screen Negative ng/mL (Negative) 11/12/17 21:48 U Cannabinoids Screen Negative ng/mL (Negative) 11/12/17 21:48 U Marijuana (THC) Screen Detected (NotDetected) H 11/09/17 11:41 Urine Alcohol Negative mg/dL (Negative) 11/12/17 21:48 Discharge Mental Status: Appearance/Attitude: Patient is casually dressed, uses a walker to ambulate, makes good eye contact and was cooperative. Behavior: Patient does not exhibit any psychomotor agitation or retardation. Speech/Language: Speech is spontaneous of normal volume and rhythm and he is coherent. Thought Process: Patient is goal-directed there is no evidence of loose association or flight of ideas Thought Content: Patient denies any auditory or visual hallucinations and no delusions or paranoid ideation or elicited. Patient is not reporting feeling hopeless or helpless and states that he is accepting of going to a supervised living situation. Patient reports that his sleep and appetite are good. Patient states that his mood is less irritable, and he was not having any crying spells. Suicidal/Homicidal Ideation: Patient denies any current suicidal or homicidal ideation Sensorium/Cognition: Patient is alert and oriented to person, place, and time Mood/Affect: Patient's mood is more stable his affect is appropriate to his mood Insight/Judgment: Patient's insight and judgment are fair Risk Assessment: Patient's risk for readmission is moderate should he not be compliant with medication Discharge Plan: Patient will be discharged to live in a supervised living situation, he will follow up with [facility], he will continue with his medications for his medical problems. He will follow-up with Dr. Miranda on December 19. Patient will continue on Abilify 2 mg daily and Celexa 30 mg daily to target his mood and melatonin 5 mg at bedtime to assist with sleep. Patient will be given prescriptions for Abilify, Celexa, Feosol, Neurontin, melatonin, he has sufficient of his other medications. Patient was encouraged to be compliant with his medications and treatment recommendations as well as to avoid any alcohol or drugs. Patient Condition at Discharge: Stable Plan - Discharge Summary New Discharge Prescriptions: New ARIPiprazole [Abilify] 2 mg PO DAILY #28 tab Citalopram Hydrobromide [CeleXA] 30 mg PO DAILY #42 tab Ibuprofen [Motrin] 600 mg PO TID PRN tab PRN Reason: Moderate To Severe Pain Melatonin 5 mg PO HS #28 tablet Continue Elviteg/Tracee/Emtric/Tenofo Dis [Stribild Tablet] 1 tab PO DAILY #30 tab Apixaban [Eliquis] 5 mg PO BID #60 tab Triamterene-Hctz 37.5-25Mg [Dyazide 37.5-25 Capsule] 1 cap PO DAILY Gabapentin [Neurontin] 300 mg PO BID@, Ferrous Sulfate [Iron (65 MG Elemental)] 325 mg PO DAILY #28 tab Changed Gabapentin [Neurontin] 600 mg PO DIRECTED #112 cap Discharge Medication List Elviteg/Tracee/Emtric/Tenofo Dis [Stribild Tablet] 1 tab PO DAILY #30 tab [Rx] Apixaban [Eliquis] 5 mg PO BID #60 tab 09/16/17 [Rx] Gabapentin [Neurontin] 300 mg PO BID@09,16 11/09/17 [History] Triamterene-Hctz 37.5-25Mg [Dyazide 37.5-25 Capsule] 1 cap PO DAILY 11/09/17 [ History] ARIPiprazole [Abilify] 2 mg PO DAILY #28 tab 12/06/17 [Rx] Citalopram Hydrobromide [CeleXA] 30 mg PO DAILY #42 tab 12/06/17 [Rx] Ferrous Sulfate [Iron (65 MG Elemental)] 325 mg PO DAILY #28 tab 12/06/17 [Rx] Gabapentin [Neurontin] 600 mg PO DIRECTED #112 cap 12/06/17 [Rx] Ibuprofen [Motrin] 600 mg PO TID PRN tab 12/06/17 [Rx] Melatonin 5 mg PO HS #28 tablet 12/06/17 [Rx] Follow up Appointment(s)/Referral(s): [facility] [Outside] - 12/13/17 11:00 am (12/13/17 @ 11:00 w/ Oumou Dillard 12/17/17 @ 10:30 w/ Dr. Malagon) Nawaf Miranda MD [STAFF PHYSICIAN] - 12/19/17 1:30 pm (pt needs to have labs drawn 1 week prior to this scheduled appointment, which would be 12-12-17.) Patient Instructions/Handouts: Depression (DC), Suicide Prevention (DC) Activity/Diet/Wound Care/Special Instructions: Keep your follow up appointments as scheduled. Continue your medications as prescribed. No alcohol or street drugs. No access to guns or weapons. Diet and activity as tolerated. If you have any problems call the crisis line at 1- [phone]. Pt to have labs drawn prior to appointment for Dr Miranda. Follow-up with your dentist for exam and treatment of Gingivitis per Dr. Gutierrez ENT's recommendation. Discharge Disposition: OTHER INSTITUTION NOT DEFINED
[2017-12-06] MEDS: FERROUS SULFATE 325 MG TAB PO SCH (10:53)
== END 2017-12-06 13:24 | disposition home or self-care (01) | DRG 885 ==
LOC: EC 11:16 → EEVIPCON 13:56 → 3MHU 13:56
PROVIDERS: ADMIT Psychiatry & Neurology Psychiatry; ATTEND Psychiatry & Neurology Psychiatry
DX: F31.5 Bipolar disorder, current episode depressed, severe, with psychotic features (principal); B20 Human immunodeficiency virus [HIV] disease; R45.851 Suicidal ideations; G31.84 Mild cognitive impairment of uncertain or unknown etiology; H61.21 Impacted cerumen, right ear; M26.621 Arthralgia of right temporomandibular joint; G62.9 Polyneuropathy, unspecified; K05.10 Chronic gingivitis, plaque induced; I10 Essential (primary) hypertension; R32 Unspecified urinary incontinence; T37.5X6A Underdosing of antiviral drugs, initial encounter; Z79.01 Long term (current) use of anticoagulants; Z86.718 Personal history of other venous thrombosis and embolism; Z59.0 Homelessness; Z79.899 Other long term (current) drug therapy
CPT/HCPCS: 80053; 80306; 81003; 82075; 82248; 84443; 85025; 87086; 99285

== ENCOUNTER → 2017-12-11 | Outpatient (CLI) | payer OTHER ==
[2017-12-11 10:25] LABS: Basophils % (A) 1 %; Eosinophils # (A) 0.1 k/uL (0-0.7); Eosinophils % (A) 2 %; HCT 44.7 % (39.0-53.0); Lymphocytes # (A) 1.7 k/uL (1.0-4.8); Lymphocytes % (A) 27 %; MCH 31.2 pg (25.0-35.0); MCHC 31.3 g/dL (31.0-37.0); MCV 99.8 fL (80.0-100.0); Mean Platelet Volume 6.5; Monocytes # (A) 0.3 k/uL (0-1.0); Monocytes % (A) 5 %; Neutrophils % (A) 63 %; Platelet Count 296 k/uL (150-450); RBC 4.48 m/uL (4.30-5.90); RDW 13.1 % (11.5-15.5); WBC 6.3 k/uL (3.8-10.6)
[2017-12-11 10:42] LABS: ALT 35 U/L (21-72); AST 37 U/L (17-59); Alkaline Phosphatase 89 U/L (38-126); Anion Gap 7 mmol/L; Blood Urea Nitrogen 19 mg/dL (9-20); Calcium 9.6 mg/dL (8.4-10.2); Carbon Dioxide 31 mmol/L (22-30); Chloride 102 mmol/L (98-107); Glucose 89 mg/dL (74-99); Potassium 4.3 mmol/L (3.5-5.1); Sodium 140 mmol/L (137-145); Total Bilirubin 0.4 mg/dL (0.2-1.3); Total Protein 8.1 g/dL (6.3-8.2)
[2017-12-12 09:53] LABS: T4/T8 Ratio (CD4:CD8) 0.3 (1.0-3.7)
[2017-12-12 14:44] LABS: HIV-1 RNA DETECTED (Not detected)
== END | disposition home or self-care (01) ==
LOC: LABWHC1 09:46
PROVIDERS: ATTEND Internal Medicine Infectious Disease
DX: B20 Human immunodeficiency virus [HIV] disease (principal)
CPT/HCPCS: 36415; 80053; 85025; 86360; 87536

== ENCOUNTER 2018-03-26 00:29 | Emergency (ER) | payer OTHER ==
[2018-03-26 00:34] VITALS: TEMP 97.8
[2018-03-26] MEDS ORDERED: GELATIN SPONGE,ABSORB (LARGE) 1 EACH SPONGE TOPICAL STA (01:08)
[2018-03-26] MEDS ORDERED: TOPICAL SKIN ADHESIVE 1 EACH AMP TOPICAL ONE (01:08)
[2018-03-26] MEDS ORDERED: DIPH,PERTUS(ACELL)TETVAC-LF 0.5 ML VIAL IM ONE (01:51)
--- NOTE | 2018-03-26 01:55 | ED ---
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 Patient was ambulating with walker tripped and fell and caught himself. He reports that he tried to catch a picture frame and fell. He has lacerations over the fourth and fifth digit. Patient states he is full range of motion. Tetanus is not up-to-date. (Nieves Taveras) - Related Data Home Medications Medication Instructions Recorded Confirmed Apixaban [Eliquis] 5 mg PO BID@0800,2100 03/26/18 03/26/18 Elviteg/Tracee/Emtric/Tenofo Dis 1 tab PO HS@2100 03/26/18 03/26/18 [Stribild Tablet] Melatonin 5 mg PO HS@2100 03/26/18 03/26/18 traZODone HCL 50 mg PO HS@2100 03/26/18 03/26/18 Previous Rx's Medication Instructions Recorded Ferrous Sulfate [Iron (65 MG 325 mg PO DAILY #28 tab 12/06/17 Elemental)] Allergies Allergy/AdvReac Type Severity Reaction Status Date / Time No Known Allergies Allergy Verified 03/26/18 09:59 Review of Systems ROS Other: All systems not noted in ROS Statement are negative. <Nieves Taveras - Last Filed: 03/26/18 01:51> ROS Other: All systems not noted in ROS Statement are negative. <Lili Aguirre P - Last Filed: 03/28/18 04:16> ROS Statement: Those systems with pertinent positive or pertinent negative responses have been documented in the HPI. Past Medical History Past Medical History: No Reported History Additional Past Medical History / Comment(s): hiv +, HIV encephalopathy History of Any Multi-Drug Resistant Organisms: None Reported Past Surgical History: No Surgical Hx Reported Past Anesthesia/Blood Transfusion Reactions: No Reported Reaction Past Psychological History: No Psychological Hx Reported Smoking Status: Current every day smoker Past Alcohol Use History: Occasional Past Drug Use History: Marijuana - Past Family History Mother History Unknown: Yes <Nieves Taveras - Last Filed: 03/26/18 01:51> General Exam Limitations: no limitations General appearance: alert, in no apparent distress Head exam: Present: atraumatic, normocephalic, normal inspection Eye exam: Present: normal appearance, PERRL, EOMI. Absent: scleral icterus, conjunctival injection, periorbital swelling ENT exam: Present: normal exam, mucous membranes moist Neck exam: Present: normal inspection. Absent: tenderness, meningismus, lymphadenopathy Respiratory exam: Present: normal lung sounds bilaterally. Absent: respiratory distress, wheezes, rales, rhonchi, stridor Cardiovascular Exam: Present: regular rate, normal rhythm, normal heart sounds. Absent: systolic murmur, diastolic murmur, rubs, gallop, clicks Right Forearm Wrist exam: Present: normal inspection, full ROM Hand Wrist exam: Absent: normal inspection Hand L/R Front: 1 - laceration (skin flap) 2 - avulsion (1cm skin avulsion) Back exam: Present: normal inspection Neurological exam: Present: alert, oriented X3, CN II-XII intact Psychiatric exam: Present: normal affect, normal mood <Nieves Taveras - Last Filed: 03/26/18 01:51> <Lili Aguirre - Last Filed: 03/28/18 04:16> - General Exam Comments Initial Comments: 27-year-old male. Alert and oriented. No acute distress. (Nieves Taveras) Vital Signs 03/26/18 03/26/18 00:31 03:07 Temperature 97.8 F 97.8 F Pulse Rate 47 L 45 L Respiratory 18 14 Rate Blood Pressure 106/84 140/74 O2 Sat by Pulse 100 99 Oximetry Procedures - Laceration Laceration #1 Site: hand (R fourth finger over PIP) Size (cm): 2 Description: flap Depth: simple, single layer Pre-repair: wound explored, irrigated extensively Type of Sutures: other (dermabond) <Nieves Taveras - Last Filed: 03/26/18 01:51> Medical Decision Making <Nieves Taveras - Last Filed: 03/26/18 01:51> <Lili Aguirre - Last Filed: 03/28/18 04:16> - Medical Decision Making Patient is a 27-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 His laceration over the right fourth and fifth digit. The fifth digit has a skin avulsion. No sutures will be able to be placed there. Gelfoam was placed over the area after was cleaned and wrapped. He does have a flap laceration over the fourth digit over the PIP. Wound was irrigated. Closed with Dermabond. Discussed keeping the wounds clean. Patient was wrapped in a sterile dressing. Discussed leaving this dressing on for the next 2 days. Patient will return to the [facility] home. Given updated tetanus. (Nieves Taveras) I personally saw and examined the patient. I reviewed and agree with the mid- level provider findings including all diagnostic interpretations and treatment plans as written unless otherwise stated. I was present for medrano portions of any procedures performed. (Lili Aguirre) Disposition Is patient prescribed a controlled substance at d/c from ED?: No Time of Disposition: 01:54 <Nieves Taveras - Last Filed: 03/26/18 01:51> <Lili Aguirre - Last Filed: 03/28/18 04:16> Clinical Impression: HIV encephalopathy, Finger laceration Disposition: HOME SELF-CARE Condition: Good Instructions: Skin Tear (ED) Additional Instructions: Keep area clean and dry. Allow skin will follow-up on its own. Keep the dressing over the fifth finger on for the next 48 hours. Patient should return to emergency department if any alarming signs or symptoms occur. Referrals: None,Stated [Primary Care Provider] - 1-2 days
[2018-03-26 03:08] VITALS: BP 140/74; PULSE 45; RESP 14
== END 2018-03-26 03:08 | disposition home or self-care (01) ==
LOC: EC 00:29
DX: S61.214A Laceration without foreign body of right ring finger without damage to nail, initial encounter (principal); S61.206A Unspecified open wound of right little finger without damage to nail, initial encounter; B20 Human immunodeficiency virus [HIV] disease; G05.3 Encephalitis and encephalomyelitis in diseases classified elsewhere; F17.200 Nicotine dependence, unspecified, uncomplicated; Z79.899 Other long term (current) drug therapy; Z23 Encounter for immunization; W01.0XXA Fall on same level from slipping, tripping and stumbling without subsequent striking against object, initial encounter; Y93.01 Activity, walking, marching and hiking; Y92.099 Unspecified place in other non-institutional residence as the place of occurrence of the external cause
CPT/HCPCS: 12001; 90471; 90715; 99283

== ENCOUNTER 2018-03-26 09:47 | Observation (INO) | payer OTHER ==
[2018-03-26] MEDS ORDERED: SODIUM CHLORIDE 0.9% 1,000 ML IV ONE (10:38)
--- NOTE | 2018-03-26 10:48 | ED ---
General Adult HPI - General Chief complaint: Weakness Stated complaint: weakness Time Seen by Provider: 03/26/18 09:49 Source: patient, EMS, RN notes reviewed Mode of arrival: EMS Limitations: no limitations - History of Present Illness Initial comments: Patient is a pleasant 27-year-old male presenting to the emergency department for an unknown reason. Patient states he is here to take his medicine. Patient is drowsy and mumbles. Patient is not active and providing history or following commands for physical exam. Patient states he normally is oriented to year. Patient denies suicidal ideation. Patient has no specific complaints of weakness. - Related Data Home Medications Medication Instructions Recorded Confirmed Apixaban [Eliquis] 5 mg PO BID@0800,2100 03/26/18 03/26/18 Elviteg/Tracee/Emtric/Tenofo Dis 1 tab PO HS@2100 03/26/18 03/26/18 [Stribild Tablet] Melatonin 5 mg PO HS@2100 03/26/18 03/26/18 traZODone HCL 50 mg PO HS@2100 03/26/18 03/26/18 Previous Rx's Medication Instructions Recorded Ferrous Sulfate [Iron (65 MG 325 mg PO DAILY #28 tab 12/06/17 Elemental)] Allergies Allergy/AdvReac Type Severity Reaction Status Date / Time No Known Allergies Allergy Verified 03/26/18 09:59 Review of Systems ROS Statement: Those systems with pertinent positive or pertinent negative responses have been documented in the HPI. ROS Other: All systems not noted in ROS Statement are negative. Constitutional: Denies: fever Eyes: Denies: eye pain ENT: Denies: ear pain Respiratory: Denies: cough Cardiovascular: Denies: chest pain Endocrine: Reports: fatigue Gastrointestinal: Denies: abdominal pain Genitourinary: Denies: dysuria Musculoskeletal: Denies: back pain Skin: Denies: rash Neurological: Denies: headache Psychiatric: Denies: suicidal thoughts Past Medical History Past Medical History: No Reported History Additional Past Medical History / Comment(s): hiv +, HIV encephalopathy History of Any Multi-Drug Resistant Organisms: None Reported Past Surgical History: No Surgical Hx Reported Past Anesthesia/Blood Transfusion Reactions: No Reported Reaction Past Psychological History: No Psychological Hx Reported Smoking Status: Current every day smoker Past Alcohol Use History: Occasional Past Drug Use History: Marijuana - Past Family History Mother History Unknown: Yes General Exam Limitations: no limitations General appearance: alert, in no apparent distress Head exam: Present: atraumatic Eye exam: Present: normal appearance, PERRL, EOMI. Absent: nystagmus ENT exam: Present: normal oropharynx Neck exam: Present: normal inspection. Absent: tenderness, meningismus Respiratory exam: Present: normal lung sounds bilaterally Cardiovascular Exam: Present: regular rate, normal rhythm GI/Abdominal exam: Present: soft. Absent: tenderness Extremities exam: Present: pedal edema (Patient states chronic). Absent: calf tenderness Neurological exam: Present: alert. Absent: motor sensory deficit Expanded Neurological exam: Present: protecting the airway Patient oriented to: Present: person, place. Absent: time Cranial nerves: EOM's Intact: Normal Motor strength exam: RUE: 5, LUE: 5, RLE: 4, LLE: 4 Eye Response: (4) open spontaneously Motor Response: (6) obeys commands Verbal Response: (4) confused conversation Psychiatric exam: Present: normal affect, normal mood Skin exam: Present: normal color Course Vital Signs 03/26/18 03/26/18 03/26/18 09:50 11:20 13:13 Temperature 97.6 F Pulse Rate 47 L 40 L 38 L Respiratory 17 14 14 Rate Blood Pressure 107/67 103/79 116/86 O2 Sat by Pulse 98 100 100 Oximetry EKG Findings - EKG Comments: EKG Findings:: Sinus bradycardia at 35. QRS 144. QTC 550. QTC 419. nonspecific intraventricular block. Nonspecific T waves. Medical Decision Making - Medical Decision Making Patient long term was contacted by nursing staff states patient is here for generalized weakness and persistent falls. Patient is reevaluated. Patient is more alert and answers questions somewhat more appropriately. Case was discussed in detail with Dr. Coats, who will admit for hospital call. He does request consult with Dr. Miranda, neurology, psychiatry, and cardiology. - Lab Data Result diagrams: 03/26/18 11:35 03/26/18 11:35 Lab Results 03/26/18 03/26/18 03/26/18 Range/Units 11:35 11:35 11:35 WBC 2.9 L (3.8-10.6) k/uL RBC 5.32 (4.30-5.90) m/uL Hgb 16.5 (13.0-17.5) gm/dL Hct 51.2 (39.0-53.0) % MCV 96.3 (80.0-100.0) fL MCH 30.9 (25.0-35.0) pg MCHC 32.1 (31.0-37.0) g/dL RDW 14.4 (11.5-15.5) % Plt Count 141 L (150-450) k/uL Neutrophils % 66 % Lymphocytes % 24 % Monocytes % 6 % Eosinophils % 2 % Basophils % 0 % Neutrophils # 1.9 (1.3-7.7) k/uL Lymphocytes # 0.7 L (1.0-4.8) k/uL Monocytes # 0.2 (0-1.0) k/uL Eosinophils # 0.1 (0-0.7) k/uL Basophils # 0.0 (0-0.2) k/uL Sodium (137-145) mmol/L Potassium (3.5-5.1) mmol/L Chloride (98-107) mmol/L Carbon Dioxide (22-30) mmol/L Anion Gap mmol/L BUN (9-20) mg/dL Creatinine (0.66-1.25) mg/dL Est GFR (CKD-EPI)AfAm (>60 ml/min/1.73 sqM) Est GFR (CKD-EPI)NonAf (>60 ml/min/1.73 sqM) Glucose (74-99) mg/dL Calcium (8.4-10.2) mg/dL Total Bilirubin (0.2-1.3) mg/dL AST (17-59) U/L ALT (21-72) U/L Alkaline Phosphatase (38-126) U/L Ammonia 22 (<30) umol/L Total Creatine Kinase 158 (55-170) U/L CK-MB (CK-2) 7.0 H (0.0-2.4) ng/mL CK-MB (CK-2) Rel Index 4.4 Troponin I 0.016 (0.000-0.034) ng/mL Total Protein (6.3-8.2) g/dL Albumin (3.5-5.0) g/dL Urine Color Urine Appearance (Clear) Urine pH (5.0-8.0) Ur Specific [place] (1.001-1.035) Urine Protein (Negative) Urine Glucose (UA) (Negative) Urine Ketones (Negative) Urine Blood (Negative) Urine Nitrite (Negative) Urine Bilirubin (Negative) Urine Urobilinogen (<2.0) mg/dL Ur Leukocyte Esterase (Negative) Urine Opiates Screen (NotDetected) Ur Oxycodone Screen (NotDetected) Urine Methadone Screen (NotDetected) Ur Propoxyphene Screen (NotDetected) Ur Barbiturates Screen (NotDetected) U Tricyclic Antidepress (NotDetected) Ur Phencyclidine Scrn (NotDetected) Ur Amphetamines Screen (NotDetected) U Methamphetamines Scrn (NotDetected) U Benzodiazepines Scrn (NotDetected) Urine Cocaine Screen (NotDetected) U Marijuana (THC) Screen (NotDetected) 03/26/18 03/26/18 Range/Units 11:35 13:10 WBC (3.8-10.6) k/uL RBC (4.30-5.90) m/uL Hgb (13.0-17.5) gm/dL Hct (39.0-53.0) % MCV (80.0-100.0) fL MCH (25.0-35.0) pg MCHC (31.0-37.0) g/dL RDW (11.5-15.5) % Plt Count (150-450) k/uL Neutrophils % % Lymphocytes % % Monocytes % % Eosinophils % % Basophils % % Neutrophils # (1.3-7.7) k/uL Lymphocytes # (1.0-4.8) k/uL Monocytes # (0-1.0) k/uL Eosinophils # (0-0.7) k/uL Basophils # (0-0.2) k/uL Sodium 143 (137-145) mmol/L Potassium 4.7 (3.5-5.1) mmol/L Chloride 106 (98-107) mmol/L Carbon Dioxide 31 H (22-30) mmol/L Anion Gap 6 mmol/L BUN 17 (9-20) mg/dL Creatinine 0.76 (0.66-1.25) mg/dL Est GFR (CKD-EPI)AfAm >90 (>60 ml/min/1.73 sqM) Est GFR (CKD-EPI)NonAf >90 (>60 ml/min/1.73 sqM) Glucose 88 (74-99) mg/dL Calcium 9.9 (8.4-10.2) mg/dL Total Bilirubin 0.6 (0.2-1.3) mg/dL AST 78 H (17-59) U/L ALT 54 (21-72) U/L Alkaline Phosphatase 97 (38-126) U/L Ammonia (<30) umol/L Total Creatine Kinase (55-170) U/L CK-MB (CK-2) (0.0-2.4) ng/mL CK-MB (CK-2) Rel Index Troponin I (0.000-0.034) ng/mL Total Protein 8.0 (6.3-8.2) g/dL Albumin 4.1 (3.5-5.0) g/dL Urine Color Yellow Urine Appearance Clear (Clear) Urine pH 5.5 (5.0-8.0) Ur Specific [place] 1.023 (1.001-1.035) Urine Protein Trace H (Negative) Urine Glucose (UA) Negative (Negative) Urine Ketones Negative (Negative) Urine Blood Negative (Negative) Urine Nitrite Negative (Negative) Urine Bilirubin Negative (Negative) Urine Urobilinogen 3.0 (<2.0) mg/dL Ur Leukocyte Esterase Negative (Negative) Urine Opiates Screen Not Detected (NotDetected) Ur Oxycodone Screen Not Detected (NotDetected) Urine Methadone Screen Not Detected (NotDetected) Ur Propoxyphene Screen Not Detected (NotDetected) Ur Barbiturates Screen Not Detected (NotDetected) U Tricyclic Antidepress Not Detected (NotDetected) Ur Phencyclidine Scrn Not Detected (NotDetected) Ur Amphetamines Screen Not Detected (NotDetected) U Methamphetamines Scrn Not Detected (NotDetected) U Benzodiazepines Scrn Not Detected (NotDetected) Urine Cocaine Screen Not Detected (NotDetected) U Marijuana (THC) Screen Not Detected (NotDetected) - Radiology Data Radiology results: report reviewed (Computed tomography scan of the brain shows atrophy and small vessel disease advanced for patient's age. Sinusitis.), image reviewed (Chest x-ray shows no acute process) Disposition Clinical Impression: Weakness, Bradycardia Disposition: ADMITTED IP TO THIS HOSP Is patient prescribed a controlled substance at d/c from ED?: No Referrals: None,Stated [Primary Care Provider] - 1-2 days Decision Time: 14:56
[2018-03-26 12:01] LABS: Basophils % (A) 0 %; Eosinophils # (A) 0.1 k/uL (0-0.7); Eosinophils % (A) 2 %; HCT 51.2 % (39.0-53.0); HGB 16.5 gm/dL (13.0-17.5); Lymphocytes # (A) 0.7 k/uL (1.0-4.8); Lymphocytes % (A) 24 %; MCH 30.9 pg (25.0-35.0); MCHC 32.1 g/dL (31.0-37.0); MCV 96.3 fL (80.0-100.0); Mean Platelet Volume 7.8; Monocytes # (A) 0.2 k/uL (0-1.0); Monocytes % (A) 6 %; Neutrophils # (A) 1.9 k/uL (1.3-7.7); Neutrophils % (A) 66 %; Platelet Count 141 k/uL (150-450); RBC 5.32 m/uL (4.30-5.90); RDW 14.4 % (11.5-15.5); WBC 2.9 k/uL (3.8-10.6)
[2018-03-26 12:02] LABS: ALT 54 U/L (21-72); AST 78 U/L (17-59); Albumin 4.1 g/dL (3.5-5.0); Alkaline Phosphatase 97 U/L (38-126); Anion Gap 6 mmol/L; Blood Urea Nitrogen 17 mg/dL (9-20); Calcium 9.9 mg/dL (8.4-10.2); Carbon Dioxide 31 mmol/L (22-30); Chloride 106 mmol/L (98-107); Glucose 88 mg/dL (74-99); Sodium 143 mmol/L (137-145); Total Bilirubin 0.6 mg/dL (0.2-1.3)
--- NOTE | 2018-03-26 12:08 | XR ---
EXAMINATION TYPE: XR chest 2V DATE OF EXAM: 03/26/2018 COMPARISON: 09/25/2017 HISTORY: Altered mental status, weakness, fall TECHNIQUE: Frontal and lateral views of the chest are obtained. FINDINGS: Lungs are slightly hypoventilatory. There is no focal air space opacity, pleural effusion, or pneumothorax seen. The cardiac silhouette size is upper limits of normal but exaggerated by low lung volumes. The osseous structures are intact. IMPRESSION: No acute cardiopulmonary process.
[2018-03-26 12:15] LABS: Potassium 4.7 mmol/L (3.5-5.1)
--- NOTE | 2018-03-26 12:24 | CT ---
EXAMINATION TYPE: CT brain wo con DATE OF EXAM: 03/26/2018 COMPARISON: 08/26/2017 HISTORY: Weakness CT DLP: 1068.4 mGycm. Automated Exposure Control for Dose Reduction was Utilized. TECHNIQUE: CT scan of the head is performed without contrast. FINDINGS: There is no acute intracranial hemorrhage or midline shift identified. There is diffuse v entricular and sulcal prominence consistent with cerebral atrophy. There is low-attenuation in the p eriventricular white matter. The globes are intact. There is progression of polypoid mucosal thicken ing within the maxillary sinuses, left greater than right in comparison to the prior. Mild mucosal th ickening is also seen within the frontal and ethmoid sinuses with trace polypoid mucosal thickening i n the sphenoid sinus. Mastoid air cells appear well aerated. The calvarium is intact. Retained secret ions are seen within the posterior nasopharynx. IMPRESSION: 1. No acute intracranial hemorrhage or midline shift. 2. Redemonstration of cerebral atrophy out of proportion for the patient's age and chronic small vess el ischemic change, also advanced for the patient's age. 3. Pansinusitis, progressed from the prior.
[2018-03-26 12:27] LABS: Troponin I 0.016 ng/mL (0.000-0.034)
[2018-03-26 13:57] LABS: Appearance,Urine Clear (Clear); Bilirubin,Urine Negative (Negative); Blood,Urine Negative (Negative); Color,Urine Yellow; Glucose,Urine (UA) Negative (Negative); Ketones,Urine Negative (Negative); Leukocyte Esterase,Urine Negative (Negative); Nitrite,Urine Negative (Negative); PH, Urine 5.5 (5.0-8.0); Protein,Urine Trace (Negative); Specific Gravity,Urine 1.023 (1.001-1.035)
[2018-03-26 14:18] LABS: Amphetamine Screen,Urine Not Detected (NotDetected); Barbiturate Screen,Urine Not Detected (NotDetected); Benzodiazepines Screen,Urine Not Detected (NotDetected); Cocaine Screen,Urine Not Detected (NotDetected); Methadone Screen, Urine Not Detected (NotDetected); Opiate Screen,Urine Not Detected (NotDetected); Oxycodone Screen, Urine Not Detected (NotDetected); Phencyclidine Screen,Urine Not Detected (NotDetected); Tricyclic Antidepressant,Urine Not Detected (NotDetected); Urn Cannabinoid Scrn Not Detected (NotDetected)
[2018-03-26] MEDS ORDERED: NALOXONE 0.4 MG/ML 1 ML VIAL IV PRN (14:57)
[2018-03-26 18:51] LABS: Creatine Kinase 161 U/L (55-170)
[2018-03-26 19:01] LABS: Creatine Kinase MB 6.7 ng/mL (0.0-2.4); Troponin I <0.012 ng/mL (0.000-0.034)
[2018-03-26] MEDS: SODIUM CHLORIDE 0.9% 1,000 ML IV SCH (21:00)
[2018-03-26] MEDS: traZODone HCL 50 MG TAB PO SCH (23:43)
[2018-03-26 23:55] LABS: Creatine Kinase 151 U/L (55-170)
[2018-03-27 00:10] LABS: Creatine Kinase MB 6.2 ng/mL (0.0-2.4); Troponin I <0.012 ng/mL (0.000-0.034)
[2018-03-27] MEDS: FERROUS SULFATE 325 MG TAB PO SCH (09:39)
[2018-03-27] MEDS: APIXABAN 5 MG TAB PO SCH ×2 (09:39→21:26)
--- NOTE | 2018-03-27 10:30 | P.CRDCN ---
History of Present Illness Consult date: 03/27/18 Requesting physician: Ashok Coats Reason for Consult (text): Second-degree heart block Chief complaint: Fall History of present illness: This is a 27-year-old gentleman with history of HIV, untreated, with subsequent myopathy and encephalopathy, who was admitted to the hospital after experiencing 3 falls. He does use a walker, but apparently has experienced 3 falls recently. We did see the patient back in July of this year, we reconsult that at that time because of second-degree type I heart block, again on this occasion a consultation is requested for same. At the time of my examination this morning patient's heart rate is in the 60s. Normal sinus rhythm with first-degree heart block at present. EKG on arrival here showed sinus bradycardia with second-degree type I heart block. CAT scan of the brain did not reveal any acute intracranial hemorrhage or midline shift. Redemonstration of cerebral atrophy out of proportion for the patient's age and chronic small vessel ischemic change also advanced for the patient's age. Pansinusitis. Chest x-ray did not reveal any acute cardiopulmonary process. Blood pressure 120/70 with a heart rate in the 70s, 100% on room air. White blood cell count 2.9, hemoglobin 16.5, platelet count 141. Sodium 143, potassium 4.7, BUN 17, creatinine 0.7. Troponins 0.016, 0.012, 0.012. Drug screen was negative. Most of the history was obtained from the patient's grandmother who is at bedside. At the time of my examination this morning, patient has mumbled speech, alert and oriented, very teary. Past Medical History Past Medical History: Deep Vein Thrombosis (DVT) Additional Past Medical History / Comment(s): per grand mother pt dx w.hiv around 2009 and in past was'nt taking his meds., HIV encephalopathy, neuropathy lower extremities, bipolar depression History of Any Multi-Drug Resistant Organisms: None Reported Past Surgical History: Adenoidectomy, Tonsillectomy Additional Past Surgical History / Comment(s): tubes in ears as child Past Anesthesia/Blood Transfusion Reactions: No Reported Reaction Smoking Status: Current some day smoker - Past Family History Mother History Unknown: Yes Family Medical History: CVA/TIA, Diabetes Mellitus Additional Family Medical History / Comment(s): MS Father Additional Family Medical History / Comment(s): BIPOLAR DEPRESSION Medications and Allergies Home Medications Medication Instructions Recorded Confirmed Type Ferrous Sulfate [Iron (65 MG 325 mg PO DAILY #28 tab 12/06/17 03/26/18 Rx Elemental)] Apixaban [Eliquis] 5 mg PO BID@0800,2100 03/26/18 03/26/18 History Elviteg/Tracee/Emtric/Tenofo Dis 1 tab PO HS@2100 03/26/18 03/26/18 History [Stribild Tablet] Melatonin 5 mg PO HS@2100 03/26/18 03/26/18 History traZODone HCL 50 mg PO HS@2100 03/26/18 03/26/18 History Allergies Allergy/AdvReac Type Severity Reaction Status Date / Time No Known Allergies Allergy Verified 03/26/18 09:59 Physical Exam Vitals: Vital Signs Temp Pulse Pulse Resp BP BP Pulse Ox 03/27/18 04:00 97.4 F L 72 15 119/69 100 03/27/18 00:00 59 L 16 117/73 99 03/26/18 20:00 97.4 F L 51 L 15 113/73 100 03/26/18 19:50 55 L 55 H 106/65 98 03/26/18 16:32 97.5 F L 51 L 16 126/87 100 03/26/18 13:13 38 L 14 116/86 100 03/26/18 11:20 40 L 14 103/79 100 Intake and Output 03/26/18 03/27/18 03/27/18 22:59 06:59 14:59 Intake Total 1010 80 Output Total 300 Balance 1010 80 -300 Intake: IV 10 20 Invasive Line 1 10 20 Intake, IV Titration 1000 60 Amount Sodium Chloride 0.9% 1, 1000 000 ml @ 100 mls/hr IV . Q10H ONE Rx#:[id number] Sodium Chloride 0.9% 1, 60 000 ml @ 20 mls/hr IV . Q24H [facility] Rx#:[id number] Output: Urine 300 Other: Voiding Method Urinal Urinal # Voids 1 # Bowel Movements 0 Weight 121.2 kg PHYSICAL EXAMINATION: GENERAL: 27-year-old gentleman in no acute distress at the time of my examination HEENT: Head is atraumatic, normocephalic. Pupils equal, round. Sclera anicteric. Conjunctiva are clear. Mucous membranes of the mouth are moist. Neck is supple. There is no elevated jugular venous pressure. No carotid bruit is heard. HEART EXAMINATION: Heart S1, S2 normal. No murmur or gallop heard. CHEST EXAMINATION: Lungs are clear to auscultation and precussion. No chest wall tenderness is noted on palpation or with deep breathing. ABDOMEN: Soft, nontender. Bowel sounds are heard. No organomegaly noted. EXTREMITIES: 2+ peripheral pulses with no evidence of peripheral edema and no calf tenderness noted. NEUROLOGIC patient is awake, alert and oriented ?-3. Mumbled speech . Results 03/26/18 11:35 03/26/18 11:35 Cardiac Enzymes 03/26/18 03/26/18 03/26/18 Range/Units 11:35 11:35 18:06 AST 78 H (17-59) U/L CK-MB (CK-2) 7.0 H 6.7 H (0.0-2.4) ng/mL Troponin I 0.016 <0.012 (0.000-0.034) ng/mL 03/26/18 Range/Units 23:19 AST (17-59) U/L CK-MB (CK-2) 6.2 H (0.0-2.4) ng/mL Troponin I <0.012 (0.000-0.034) ng/mL CBC 03/26/18 Range/Units 11:35 WBC 2.9 L (3.8-10.6) k/uL RBC 5.32 (4.30-5.90) m/uL Hgb 16.5 (13.0-17.5) gm/dL Hct 51.2 (39.0-53.0) % Plt Count 141 L (150-450) k/uL Comprehensive Metabolic Panel 03/26/18 Range/Units 11:35 Sodium 143 (137-145) mmol/L Potassium 4.7 (3.5-5.1) mmol/L Chloride 106 (98-107) mmol/L Carbon Dioxide 31 H (22-30) mmol/L BUN 17 (9-20) mg/dL Creatinine 0.76 (0.66-1.25) mg/dL Glucose 88 (74-99) mg/dL Calcium 9.9 (8.4-10.2) mg/dL AST 78 H (17-59) U/L ALT 54 (21-72) U/L Alkaline Phosphatase 97 (38-126) U/L Total Protein 8.0 (6.3-8.2) g/dL Albumin 4.1 (3.5-5.0) g/dL Current Medications Generic Name Dose Route Start Last Admin Trade Name Freq PRN Reason Stop Dose Admin Apixaban 5 mg 03/27/18 08:00 03/27/18 09:39 Eliquis PO 5 mg BID@0800,2100 SANDRA Administration Ferrous Sulfate 325 mg 03/27/18 09:00 03/27/18 09:39 Feosol PO 325 mg DAILY SANDRA Administration Sodium Chloride 1,000 mls @ 20 mls/hr 03/26/18 15:00 03/26/18 21:00 Saline 0.9% IV 20 mls/hr .Q24H SANDRA Administration Naloxone HCl 0.2 mg 03/26/18 14:57 Narcan IV Q2M PRN Opioid Reversal Trazodone HCl 50 mg 03/26/18 23:16 03/26/18 23:43 Desyrel PO Not Given HS@2100 SANDRA Intake and Output 03/26/18 03/27/18 03/27/18 22:59 06:59 14:59 Intake Total 1010 80 Output Total 300 Balance 1010 80 -300 Intake: IV 10 20 Invasive Line 1 10 20 Intake, IV Titration 1000 60 Amount Sodium Chloride 0.9% 1, 1000 000 ml @ 100 mls/hr IV . Q10H ONE Rx#:[id number] Sodium Chloride 0.9% 1, 60 000 ml @ 20 mls/hr IV . Q24H SANDRA Rx#:[id number] Output: Urine 300 Other: Voiding Method Urinal Urinal # Voids 1 # Bowel Movements 0 Weight 121.2 kg 03/26/18 11:35 03/26/18 11:35 EKG Interpretations (text) Initial EKG shows a sinus bradycardia with second-degree type I heart block Assessment and Plan Plan: Assessment and plan #1 unsteadiness with fall 3 #2 HIV, untreated, with subsequent myopathy and encephalopathy #3 second-degree type I heart block, patient currently in normal sinus rhythm with heart rate in the mid 60s, first-degree heart block. Plan We will obtain an echocardiogram with Doppler study, check a free T4 and a TSH level. Patient did have an echo performed in July of this year which revealed a normal left ventricular systolic function. Further recommendations to follow. DNP note has been reviewed, I agree with a documented findings and plan of care. Patient was seen and examined.
--- NOTE | 2018-03-27 11:10 | P.CONS ---
History of Present Illness - Reason for Consult Consult date: 03/27/18 ID consult - History of Present Illness This is a 27-year-old Afro-Swedish male well-known to ID service has history of HIV, HIV encephalopathy and neuropathy currently under treatment with Stribild. Patient had a history of HIV diagnosed in 2008 but did not seek treatment. After several admissions here and after securing guardian, patient was located to a local [facility] and he currently has a public guardian and started treatment for HIV. Patient has been residing at the [facility] and he states that he has been taking his medication as directed daily. He apparently has had 3 falls in the past 24 hours including one that caused a laceration to his left hand requiring gluing. Patient was brought into [facility] emergency center. CAT scan of the brain did not reveal any acute intracranial hemorrhage or midline shift. Redemonstration of cerebral atrophy out of proportion for the patient's age and chronic small vessel ischemic change also advanced for the patient's age. Pansinusitis. Chest x-ray did not reveal any acute cardiopulmonary process. He has been afebrile. White blood cell count 2.9, hemoglobin 16.5, platelet count 141. BUN 17, creatinine 0.7. Troponins 0.016, 0.012, 0.012. Drug screen was negative. Urinalysis showed trace protein only. Patient denies any other injury with his falls. He denies having any vomiting or diarrhea. Grandmother is concerned the patient has been on eliquis for DVT and Dr. Ocasio was planning to wean him off this. Review of Systems All systems: negative Constitutional: Reports weakness, Denies anorexia, Denies chills, Denies fever, Denies poor appetite Eyes: denies blurred vision, denies pain Ears, nose, mouth and throat: Denies dental pain, Denies headache, Denies mouth pain, Denies sore throat, Denies vertigo Cardiovascular: Reports edema, Denies chest pain, Denies dyspnea on exertion, Denies shortness of breath, Denies syncope Respiratory: Denies cough, Denies cough with sputum, Denies dyspnea, Denies hemoptysis, Denies home oxygen, Denies wheezing Gastrointestinal: Denies abdominal pain, Denies diarrhea, Denies loss of appetite, Denies nausea, Denies vomiting Genitourinary: Denies dysuria Musculoskeletal: Reports frequent falls, Reports gait dysfunction, Reports muscle weakness, Denies myalgias Integumentary: Denies pruritus, Denies rash Neurological: Denies numbness, Denies weakness Psychiatric: Denies anxiety, Denies depression Endocrine: Denies fatigue, Denies weight change Past Medical History Past Medical History: Deep Vein Thrombosis (DVT) Additional Past Medical History / Comment(s): per grand mother pt dx w.hiv around 2009 and in past was'nt taking his meds., HIV encephalopathy, neuropathy lower extremities, bipolar depression History of Any Multi-Drug Resistant Organisms: None Reported Past Surgical History: Adenoidectomy, Tonsillectomy Additional Past Surgical History / Comment(s): tubes in ears as child Past Anesthesia/Blood Transfusion Reactions: No Reported Reaction Smoking Status: Current some day smoker Additional Past Alcohol Use History / Comment(s): Patient is currently residing at [facility]. Patient has public guardian. - Past Family History Mother History Unknown: Yes Family Medical History: CVA/TIA, Diabetes Mellitus Additional Family Medical History / Comment(s): MS Father Additional Family Medical History / Comment(s): BIPOLAR DEPRESSION Medications and Allergies Home Medications Medication Instructions Recorded Confirmed Type Ferrous Sulfate [Iron (65 MG 325 mg PO DAILY #28 tab 12/06/17 03/26/18 Rx Elemental)] Apixaban [Eliquis] 5 mg PO BID@0800,2100 03/26/18 03/26/18 History Elviteg/Tracee/Emtric/Tenofo Dis 1 tab PO HS@2100 03/26/18 03/26/18 History [Stribild Tablet] Melatonin 5 mg PO HS@2100 03/26/18 03/26/18 History traZODone HCL 50 mg PO HS@2100 03/26/18 03/26/18 History Allergies Allergy/AdvReac Type Severity Reaction Status Date / Time No Known Allergies Allergy Verified 03/26/18 09:59 Physical Exam Vitals: Vital Signs Temp Pulse Pulse Resp BP BP Pulse Ox 03/27/18 08:00 64 18 125/74 98 03/27/18 04:00 97.4 F L 72 15 119/69 100 03/27/18 00:00 59 L 16 117/73 99 03/26/18 20:00 97.4 F L 51 L 15 113/73 100 03/26/18 19:50 55 L 55 H 106/65 98 03/26/18 16:32 97.5 F L 51 L 16 126/87 100 03/26/18 13:13 38 L 14 116/86 100 03/26/18 11:20 40 L 14 103/79 100 Intake and Output 03/26/18 03/27/18 03/27/18 22:59 06:59 14:59 Intake Total 1010 80 Output Total 300 Balance 1010 80 -300 Intake: IV 10 20 Invasive Line 1 10 20 Intake, IV Titration 1000 60 Amount Sodium Chloride 0.9% 1, 1000 000 ml @ 100 mls/hr IV . Q10H ONE Rx#:[id number] Sodium Chloride 0.9% 1, 60 000 ml @ 20 mls/hr IV . Q24H SANDRA Rx#:[id number] Output: Urine 300 Other: Voiding Method Urinal Urinal Urinal # Voids 1 # Bowel Movements 0 Weight 121.2 kg Gen: This is a 27-year-old -Swedish male. He is sitting up in bed and appears to be comfortable and in no acute distress. HEENT: Head is atraumatic, normocephalic. Pupils equal, round. Sclerae is anicteric. Conjunctiva pink. Mucous members of the mouth are moist. No thrush noted. NECK: Supple. No JVD. No lymphadenopathy. No thyromegaly. LUNGS: Clear to auscultation. No intercostal retractions. HEART: Regular rate and rhythm. No murmur. ABDOMEN: Soft. Bowel sounds are present. No masses. No tenderness. EXTREMITIES: There is trace bilateral lower extremity edema. No calf tenderness. NEUROLOGICAL: Patient is awake, alert and is able to answer most questions appropriately. Results Results: Laboratory Results WBC 2.9 k/uL (3.8-10.6) L 03/26/18 11:35 RBC 5.32 m/uL (4.30-5.90) 03/26/18 11:35 Hgb 16.5 gm/dL (13.0-17.5) 03/26/18 11:35 Hct 51.2 % (39.0-53.0) 03/26/18 11:35 MCV 96.3 fL (80.0-100.0) 03/26/18 11:35 MCH 30.9 pg (25.0-35.0) 03/26/18 11:35 MCHC 32.1 g/dL (31.0-37.0) 03/26/18 11:35 RDW 14.4 % (11.5-15.5) 03/26/18 11:35 Plt Count 141 k/uL (150-450) L 03/26/18 11:35 Neutrophils % 66 % 03/26/18 11:35 Lymphocytes % 24 % 03/26/18 11:35 Monocytes % 6 % 03/26/18 11:35 Eosinophils % 2 % 03/26/18 11:35 Basophils % 0 % 03/26/18 11:35 Neutrophils # 1.9 k/uL (1.3-7.7) 03/26/18 11:35 Lymphocytes # 0.7 k/uL (1.0-4.8) L 03/26/18 11:35 Monocytes # 0.2 k/uL (0-1.0) 03/26/18 11:35 Eosinophils # 0.1 k/uL (0-0.7) 03/26/18 11:35 Basophils # 0.0 k/uL (0-0.2) 03/26/18 11:35 Sodium 143 mmol/L (137-145) 03/26/18 11:35 Potassium 4.7 mmol/L (3.5-5.1) 03/26/18 11:35 Chloride 106 mmol/L (98-107) 03/26/18 11:35 Carbon Dioxide 31 mmol/L (22-30) H 03/26/18 11:35 Anion Gap 6 mmol/L 03/26/18 11:35 BUN 17 mg/dL (9-20) 03/26/18 11:35 Creatinine 0.76 mg/dL (0.66-1.25) 03/26/18 11:35 Est GFR (CKD-EPI)AfAm >90 (>60 ml/min/1.73 sqM) 03/26/18 11:35 Est GFR (CKD-EPI)NonAf >90 (>60 ml/min/1.73 sqM) 03/26/18 11:35 Glucose 88 mg/dL (74-99) 03/26/18 11:35 Calcium 9.9 mg/dL (8.4-10.2) 03/26/18 11:35 Total Bilirubin 0.6 mg/dL (0.2-1.3) 03/26/18 11:35 AST 78 U/L (17-59) H 03/26/18 11:35 ALT 54 U/L (21-72) 03/26/18 11:35 Alkaline Phosphatase 97 U/L (38-126) 03/26/18 11:35 Ammonia 22 umol/L (<30) 03/26/18 11:35 Total Creatine Kinase 151 U/L (55-170) 03/26/18 23:19 CK-MB (CK-2) 6.2 ng/mL (0.0-2.4) H 03/26/18 23:19 CK-MB (CK-2) Rel Index 4.1 03/26/18 23:19 Troponin I <0.012 ng/mL (0.000-0.034) 03/26/18 23:19 Total Protein 8.0 g/dL (6.3-8.2) 03/26/18 11:35 Albumin 4.1 g/dL (3.5-5.0) 03/26/18 11:35 Urine Color Yellow 03/26/18 13:10 Urine Appearance Clear (Clear) 03/26/18 13:10 Urine pH 5.5 (5.0-8.0) 03/26/18 13:10 Ur Specific Baldwin 1.023 (1.001-1.035) 03/26/18 13:10 Urine Protein Trace (Negative) H 03/26/18 13:10 Urine Glucose (UA) Negative (Negative) 03/26/18 13:10 Urine Ketones Negative (Negative) 03/26/18 13:10 Urine Blood Negative (Negative) 03/26/18 13:10 Urine Nitrite Negative (Negative) 03/26/18 13:10 Urine Bilirubin Negative (Negative) 03/26/18 13:10 Urine Urobilinogen 3.0 mg/dL (<2.0) 03/26/18 13:10 Ur Leukocyte Esterase Negative (Negative) 03/26/18 13:10 Urine Opiates Screen Not Detected (NotDetected) 03/26/18 13:10 Ur Oxycodone Screen Not Detected (NotDetected) 03/26/18 13:10 Urine Methadone Screen Not Detected (NotDetected) 03/26/18 13:10 Ur Propoxyphene Screen Not Detected (NotDetected) 03/26/18 13:10 Ur Barbiturates Screen Not Detected (NotDetected) 03/26/18 13:10 U Tricyclic Antidepress Not Detected (NotDetected) 03/26/18 13:10 Ur Phencyclidine Scrn Not Detected (NotDetected) 03/26/18 13:10 Ur Amphetamines Screen Not Detected (NotDetected) 03/26/18 13:10 U Methamphetamines Scrn Not Detected (NotDetected) 03/26/18 13:10 U Benzodiazepines Scrn Not Detected (NotDetected) 03/26/18 13:10 Urine Cocaine Screen Not Detected (NotDetected) 03/26/18 13:10 U Marijuana (THC) Screen Not Detected (NotDetected) 03/26/18 13:10 CBC & Chem 7: 03/26/18 11:35 03/26/18 11:35 Labs: Abnormal Lab Results - Last 24 Hours (Table) 03/26/18 03/26/18 03/26/18 Range/Units 11:35 11:35 11:35 WBC 2.9 L (3.8-10.6) k/uL Plt Count 141 L (150-450) k/uL Lymphocytes # 0.7 L (1.0-4.8) k/uL Carbon Dioxide 31 H (22-30) mmol/L AST 78 H (17-59) U/L CK-MB (CK-2) 7.0 H (0.0-2.4) ng/mL Urine Protein (Negative) 03/26/18 03/26/18 03/26/18 Range/Units 13:10 18:06 23:19 WBC (3.8-10.6) k/uL Plt Count (150-450) k/uL Lymphocytes # (1.0-4.8) k/uL Carbon Dioxide (22-30) mmol/L AST (17-59) U/L CK-MB (CK-2) 6.7 H 6.2 H (0.0-2.4) ng/mL Urine Protein Trace H (Negative) Assessment and Plan Plan: This is a 27-year-old male patient who has history of HIV, HIV encephalopathy and neuropathy currently with public guardian and residing at [facility]. Patient is on treatment for HIV with Stribild. Nursing has contacted [facility] to bring his presciption to the hospital so that he can continue to take as directed. CD4, CD8 and HIV-1 RNA ultra quantitative ordered. Patient's grandmother is at the bedside and concern regarding patient taking eliquis and thought this was to be weaned off by now by Dr. Ocasio. Primary care to follow -up with Dr. Ocasio regarding this. Continue supportive care. Further recommendations patient progresses. The above dictated assessment and findings were discussed with Dr. Miranda. The impression and plan of care have been directed as dictated. Little Diaz nurse practitioner acting as scribe for Dr. Miranda..
[2018-03-27 11:48] LABS: T4/T8 Ratio (CD4:CD8) 0.5 (1.0-3.7)
--- NOTE | 2018-03-27 13:56 | P.CN ---
Psychiatric Consult - . Consult date: 03/27/18 Consult:: 03/27/18 12:33 Psychiatric evaluation Assessment and Plan Assessment: This is a 27-year-old Afro-Turkmen male well-known to ID service has history of HIV, HIV encephalopathy and neuropathy currently under treatment with Stribild. Patient had a history of HIV diagnosed in 2008 but did not seek treatment. After several admissions here and after securing guardian, patient was located to a local [facility] and he currently has a public guardian and started treatment for HIV. Patient has been residing at the [facility] and he states that he has been taking his medication as directed daily. He apparently has had 3 falls in the past 24 hours including one that caused a laceration to his left hand requiring gluing. Patient was brought into [facility] emergency center. CAT scan of the brain did not reveal any acute intracranial hemorrhage or midline shift. Redemonstration of cerebral atrophy out of proportion for the patient's age and chronic small vessel ischemic change also advanced for the patient's age. Pansinusitis. Chest x-ray did not reveal any acute cardiopulmonary process. He has been afebrile. White blood cell count 2.9, hemoglobin 16.5, platelet count 141. BUN 17, creatinine 0.7. Troponins 0.016, 0.012, 0.012. Drug screen was negative. Urinalysis showed trace protein only. Patient denies any other injury with his falls. He denies having any vomiting or diarrhea. Grandmother is concerned the patient has been on eliquis for DVT and Dr. Ocasio was planning to wean him off this. Past Medical History Past Medical History: Deep Vein Thrombosis (DVT) Additional Past Medical History / Comment(s): per grand mother pt dx w.hiv around 2009 and in past was'nt taking his meds., HIV encephalopathy, neuropathy lower extremities, bipolar depression History of Any Multi-Drug Resistant Organisms: None Reported Past Surgical History: Adenoidectomy, Tonsillectomy Additional Past Surgical History / Comment(s): tubes in ears as child Past Anesthesia/Blood Transfusion Reactions: No Reported Reaction Smoking Status: Current some day smoker Additional Past Alcohol Use History / Comment(s): Patient is currently residing at [facility]. Patient has public guardian. - Past Family History Mother History Unknown: Yes Family Medical History: CVA/TIA, Diabetes Mellitus Additional Family Medical History / Comment(s): MS Father Additional Family Medical History / Comment(s): BIPOLAR DEPRESSION Medications and Allergies Home Medications Medication Instructions Recorded Confirmed Type Ferrous Sulfate [Iron (65 MG 325 mg PO DAILY #28 tab 12/06/17 03/26/18 Rx Elemental)] Apixaban [Eliquis] 5 mg PO BID@0800,2100 03/26/18 03/26/18 History Elviteg/Tracee/Emtric/Tenofo Dis 1 tab PO HS@209903/26/18 03/26/18 History [Stribild Tablet] Melatonin 5 mg PO HS@2100 03/26/18 03/26/18 History traZODone HCL 50 mg PO HS@209903/26/18 03/26/18 History Allergies Allergy/AdvReac Type Severity Reaction Status Date / Time No Known Allergies Allergy Verified 03/26/18 09:59 Mental Status Examination - this is a 27-year-old -Turkmen male who was seen lying in his hospital bed eating lunch. He was able to stop eating lunch and was able to communicate through the entire mental status examination without any difficulty. He does have is slow speech but otherwise appears within normal limits. General Appearance: [ casual, appears stated age Speech/Language: [ slow, slurred, soft] Attitude/Behavior: [cooperative Mood: [euthymic Affect: [full range Orientation: [time, person, place situation] Thought Content: [wnl, denies delusions, obsessions, phobias, other] Risk Factors: [Denies that he is suicidal (ideations, plan), and/or Homicidal ( ideations, plan), other] Perception: [wnl, denies hallucinations (auditory, visual, tactile), other] Thought Processes: [goal-oriented Concentration/Attention Span: [wnl] [Per observation and interview with the patient] Recent Memory: [wnl] [0, 1, 2 or 3 out of 3 in 3 minutes] Remote Memory: [wnl,] [past events, as related history] Intelligence: [below average] [based on history, based on vocabulary, syntax, grammar, and content] Judgement: [good] [per patient's behavior/history of present illness] Insight: [good] [understanding severity of illness/history of present illness] Psychiatric impression: History of Bipolar disorder due to medical condition; 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 Psychiatric recommendations: No further recommendations at this time Thank you for the consult Ananth Malave D.O. PhD Time with Patient: Less than 30
[2018-03-27] MEDS: SODIUM CHLORIDE 0.9% 1,000 ML IV SCH (17:19)
--- NOTE | 2018-03-27 17:37 | HP ---
HISTORY AND PHYSICAL CHIEF COMPLAINT: Weakness and bradycardia. HISTORY OF PRESENT ILLNESS: This is the first known admission for this 27-year-old male. He comes from a shelter. Apparently he has psychiatric issues and diagnoses as well as being HIV positive. It is not clear why he was admitted. In the emergency room, he did have bradycardia going down to as low as 30-40. REVIEW OF SYSTEMS: Could not be obtained because he cannot responsibly give a history. It is not clear if he is having any pain, shortness of breath, etc. Past medical history, family history, personal history and social histories, these are all essentially unobtainable. PHYSICAL EXAMINATION: Blood pressure is 128/64 with a pulse of 77, respirations of 19. He is afebrile. GENERAL: He appeared to be slightly overweight and in no acute distress. Skin color is normal. Skin is warm, dry. Lymph nodes not enlarged. Head, ears, eyes, nose, mouth, and throat were normal. Neck veins not distended. CHEST: Clear. Cardiac exam is essentially normal. The abdomen is soft, nontender without any masses or visceromegaly. Extremities are normal. IMPRESSION: 1. Mental status changes. 2. Psychosis. 3. Bradycardia. 4. HIV positivity. PLAN: 1. Bed rest. 2. Telemetry. 3. Consult with Infectious Disease. MMODL / ASHLEYN: [id number] /
--- NOTE | 2018-03-27 17:43 | PN ---
PROGRESS NOTE DATE OF SERVICE: 03/27/2018 CHIEF COMPLAINT: Weakness and bradycardia. HISTORY OF PRESENT ILLNESS: This gentleman seems to be stable. He does not complain of any problems, although he cannot respond appropriately to questions. PHYSICAL EXAM: Chest is clear. Cardiac exam is normal. abdomen is soft, nontender. IMPRESSION: 1. Bradycardia. 2. Generalized weakness. 3. Psychosis ? 4. HIV. PLAN: Continue to workup and monitor for any other abnormalities while watching his pulse. MMODL / IJN: [id number] /
[2018-03-27] MEDS: traZODone HCL 50 MG TAB PO SCH (21:26)
[2018-03-27] MEDS: Elviteg/Cobi/Emtric/Tenofo Dis [Stribild Tablet] PO SCH (21:27)
--- NOTE | 2018-03-27 23:40 | P.CON ---
Consult Note - . Consult date: 03/27/18 Assessment/Plan:: This is a 27-year-old Afro-[place]an male well-known to ID service has history of HIV, HIV encephalopathy and neuropathy currently under treatment with Stribild. Patient had a history of HIV diagnosed in 2008 but did not seek treatment. After several admissions here and after securing guardian, patient was located to a local [facility] and he currently has a public guardian and started treatment for HIV. Patient has been residing at the [facility] and he states that he has been taking his medication as directed daily. He apparently has had 3 falls in the past 24 hours including one that caused a laceration to his left hand requiring gluing. Patient was brought into [facility] emergency center. CAT scan of the brain did not reveal any acute intracranial hemorrhage or midline shift. Redemonstration of cerebral atrophy out of proportion for the patient's age and chronic small vessel ischemic change also advanced for the patient's age. Pansinusitis. Chest x-ray did not reveal any acute cardiopulmonary process. He has been afebrile. White blood cell count 2.9, hemoglobin 16.5, platelet count 141. BUN 17, creatinine 0.7. Troponins 0.016, 0.012, 0.012. Drug screen was negative. Urinalysis showed trace protein only. Patient denies any other injury with his falls. He denies having any vomiting or diarrhea. Grandmother is concerned the patient has been on eliquis for DVT and Dr. Ocasio was planning to wean him off this. Please see the consult note is dictated by nurse practitioner Mrs. Little Diaz. This 27-year-old male is known to the service with his history of HIV and AIDS and HIV encephalopathy being treated with Stribild with at last check good control of his viral load and improved CD4 cell count. Presents to hospital with further change of his mental status weakness and falls. At this time there is no evidence of acute sepsis. He does have a history of a DVT and is followed with Dr. Ocasio as to the overall length of therapy required for his treatment. The antiviral therapy has been requested and some baseline laboratory since he did not keep his last appointment in the office will be helpful. He will be seen by psychiatry and we will follow. I agree with evaluation, assessment and plan is dictated by nurse practitioner Mrs. Little Diaz.
--- NOTE | 2018-03-28 08:26 | CONS ---
CONSULTATION DATE OF CONSULTATION: 03/27/2018. CHIEF COMPLAINT: Weakness. HISTORY OF PRESENT ILLNESS: The patient is a 27-year-old, male, who was brought into [facility] with complaints of generalized weakness. The patient does have a history of HIV infection and does have secondary HIV encephalopathy and HIV neuropathy. According to the admission note, the patient has been having some falls due to the weakness. The patient informs me that he has been weak for approximately 8 years and has been using a walker to ambulate since then. He denies any fevers. He does have a history of deep venous thrombosis and is currently on Eliquis. A CT scan of the brain was done, which showed no acute intracranial abnormalities. There was generalized atrophy and small-vessel ischemic changes. Pansinusitis was also noticed. His CBC showed leukopenia at 2.9, and mild thrombocytopenia at 141,000. His comprehensive metabolic profile was normal except for elevated AST at 78. His cardiac enzymes, urinalysis, and urine drug screen were normal. PAST MEDICAL HISTORY: History of deep venous thrombosis, HIV positive, HIV encephalopathy, HIV neuropathy, bipolar disorder, depression, history of adenoidectomy and tonsillectomy. SOCIAL HISTORY: He occasionally smokes cigarettes. There is no history of any alcohol or IV drug use. FAMILY HISTORY: Positive for strokes, diabetes, psychiatric disorder, and multiple sclerosis. HOME MEDICATIONS: Reviewed in the chart. ALLERGIES: No known drug allergies. REVIEW OF SYSTEM: CONSTITUTIONAL: Positive for fatigue. EYES: Negative. ENT: Negative. CARDIOVASCULAR: Negative. RESPIRATORY: Negative. NEUROLOGICAL: As mentioned above. GASTROINTESTINAL: Negative. GENITOURINARY: Negative. DERMATOLOGICAL: Negative. PSYCHIATRIC: As mentioned above. ENDOCRINE: Negative. PHYSICAL EXAM: Vital signs show a temperature of 97.4, pulse 70, respiration 18, blood pressure 131/69. GENERAL APPEARANCE: The patient is a well-developed, male who appears to be in no acute distress. HEENT: Normocephalic, atraumatic. No facial asymmetry is seen. Neck is supple with no masses felt. CARDIOVASCULAR: Regular rate and rhythm. ABDOMEN: Nontender, nondistended. Extremities showed edema with no clubbing seen. NEUROLOGICAL EXAM: The patient is awake and oriented x3. Speech is dysarthric. He does move all 4 extremities to command, but appears to have a 3+ out of 5 strength. No lateralizing weakness is seen. No seizure-like activity is noticed. No obvious facial asymmetry is seen on cranial nerve testing. IMPRESSION: 1. Generalized weakness. 2. History of HIV. 3. HIV encephalopathy. 4. HIV neuropathy. RECOMMENDATION: The patient does have generalized weakness with no lateralizing symptoms at this time. He does state that he has been this weak for several years. He is unaware of any significant worsening lately. Although I doubt any neurological acute etiologies at this time, an MRI of the brain with and without contrast will be ordered given his infectious history. Physical Therapy will be consulted. Continue the rest of your current workup and management. I will continue to follow with you. Further recommendations to follow. Thank you for allowing me to participate in the care of your patient. If you have any questions, please feel free to contact me. ENOCH / VELIA: [id number] /
[2018-03-28] MEDS: FERROUS SULFATE 325 MG TAB PO SCH (09:46)
[2018-03-28] MEDS: APIXABAN 5 MG TAB PO SCH ×2 (09:47→20:23)
[2018-03-28 14:14] LABS: HIV-1 RNA DETECTED (Not detected)
--- NOTE | 2018-03-28 15:26 | PN ---
PROGRESS NOTE DATE OF SERVICE: 03/28/2018. CHIEF COMPLAINT: Generalized weakness and bradycardia. HISTORY OF PRESENT ILLNESS: This gentleman seems to be doing well and seems to be having no problems. He can probably go home today. PHYSICAL EXAMINATION: Chest is clear. Cardiac exam is normal. Pulse is up in the 50s. ABDOMEN: Soft nontender. IMPRESSION: 1. Generalized weakness. 2. Bradycardia. 3. Human immunodeficiency virus. PLAN: Probably home later today. MMODL / IJN: [id number] /
--- NOTE | 2018-03-28 17:03 | MR ---
EXAMINATION TYPE: MR brain wo/w con DATE OF EXAM: 03/28/2018 COMPARISON: 08/02/2017 HISTORY: AMS, Hx of HIV TECHNIQUE: Multiplanar, multisequence images of the brain and brainstem is performed without and with IV contras t, utilizing 12 mL intravenous Gadavist . FINDINGS: On the T2 and FLAIR images there is patchy increased signal in the periventricular white ma tter with coalescent signal on the FLAIR images that measures up to 1.5 cm in thickness. There is no mass effect nor midline shift. There is no sign of intracranial hemorrhage. There is some mucosal thi ckening in the maxillary and ethmoid sinuses and right frontal sinus. I see no evidence of cortical i nfarct. There is normal contrast opacification of the venous sinuses. I see no pathologic enhancement . There is a mild enlargement of the ventricles. There is thinning of the corpus callosum. Brainstem is intact. Sella turcica is intact. IMPRESSION: Extensive diffuse white matter disease without significant change compared to old exam. N o evidence of cortical infarct. Stable sinusitis. Hydrocephalus. No adverse change compared to old ex am.
[2018-03-28] MEDS: SODIUM CHLORIDE 0.9% 1,000 ML IV SCH (20:18)
[2018-03-28] MEDS: traZODone HCL 50 MG TAB PO SCH (20:23)
[2018-03-28] MEDS: Elviteg/Cobi/Emtric/Tenofo Dis [Stribild Tablet] PO SCH (20:33)
--- NOTE | 2018-03-28 22:05 | P.PN ---
Subjective Progress Note Date: 03/28/18 Principal diagnosis: generalized weakness Neurology following a 27-year-old male. Patient is known to our practice and is a current patient in the outpatient setting. Patient was brought to the ED for generalized weakness. 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 Patient has reported history of falls due to weakness which has been addressed in the outpatient setting with the patient's visiting physician. Provider has attempted to speak to visiting physician however our attempts to make contact with the visiting physician have been unsuccessful. We have attempted to coordinate medication management and rehabilitative efforts without any mutual effort by the patient' s visiting physician. Patient was last seen in our office approximately 2 weeks ago. Patient has been weak for significant number of years and does ambulate with assistive device, walker. Patient has history of DVT and is on Eliquis. CT of the brain was done which no noted acute intracranial normalities. It did note generalized atrophy and chronic small vessel ischemic changes. On contact, patient is alert but is cognitively impaired. He is well known to provider and does appear to be consistent with his baseline. Objective - Vital Signs Vital signs: Vital Signs Temp 97.4 F L 03/28/18 12:00 Pulse 64 03/28/18 16:00 Resp 18 03/28/18 16:00 BP 130/73 03/28/18 16:00 Pulse Ox 97 03/28/18 16:00 Intake & Output 03/28/18 03/28/18 03/29/18 06:59 18:59 06:59 Intake Total 420 750 Balance 420 750 Weight 121.1 kg Intake: IV 20 30 Invasive Line 1 20 30 Intake, IV Titration 160 Amount Sodium Chloride 0.9% 1, 160 000 ml @ 20 mls/hr IV . Q24H [facility] Rx#:[id number] Oral 240 720 Other: Voiding Method Urinal Urinal Urinal Incontinent Incontinent # Voids 1 # Bowel Movements 1 - Exam General appearance: Alert, no apparent distress. Head: Atraumatic, normocephalic, normal inspection Eyes: PERRLA, EOMI. Ear, nose and throat: Normal exam, mucous membranes moist Neck: Normal inspection, absent tenderness, lymphadenopathy. Respiratory: No increased work of breathing Cardiovascular: Regular rate, rhythm GI/abdominal: No guarding, no rigidity Extremities: moves all extremities, but weak Neurological: cranial nerves II through XII intact no lateralizing weakness, Generalized weakness noted especially in the lower extremities no seizure activity noted on physical exam no pronator drift and no nystagmus. Strength: moves all 4 extremities left lower extremity 3+ out of 5 Right lower extremity 3+ out of 5 Left upper extremity 4- out of 5 Right upper extremity 4- out of 5 Sensation: Left lower extremity: normal Right lower extremity: normal Left upper extremity: normal Right upper extremity:normal Psychological: Mood and Affect appropriate for setting - Labs CBC & Chem 7: 03/26/18 11:35 03/26/18 11:35 Labs: Abnormal Lab Results - Last 24 Hours (Table) 03/27/18 Range/Units 05:07 HIV-1 RNA Quant 3,950 H (<40) Copies/mL HIV RNA logcopies/mL Ult 3.60 H (<1.60) HIV-1 RNA (PCR) DETECTED H (Not detected) Assessment and Plan (1) Ambulatory dysfunction Narrative/Plan: He does have known history of lower extremity weakness and ambulatory dysfunction. MRI of the brain was unremarkable. Patient is normally cared for by a visiting physician at his [facility]assisted living facility. Patients visiting physician is been requested to contact provider's office to attempt to coordinate care with regard to medication management and rehabilitative efforts however the physician has failed to contact our office after multiple attempts. Recommend PT/OT consider placement at an appropriate facility suitable for patient's needs. 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 Current Visit: No Status: Acute Code(s): B20 - HUMAN IMMUNODEFICIENCY VIRUS [HIV] DISEASE; G93.40 - ENCEPHALOPATHY, UNSPECIFIED SNOMED Code(s): 612456617 (4) Cognitive impairment Narrative/Plan: secondary to HIV encephalopathy Current Visit: Yes Status: Acute Code(s): R41.89 - OTH SYMPTOMS AND SIGNS W COGNITIVE FUNCTIONS AND AWARENESS SNOMED Code(s): 530897848 (5) Lower extremity weakness Narrative/Plan: as noted above Current Visit: No Status: Acute Code(s): R29.898 - OTH SYMPTOMS AND SIGNS INVOLVING THE MUSCULOSKELETAL SYSTEM SNOMED Code(s): 242921063 (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 Patient to contact our office within 10 days for follow up. I have discussed the plan of care with the physician prior to implementation and he agrees with the plan as implemented.
[2018-03-29] MEDS: FERROUS SULFATE 325 MG TAB PO SCH (07:41)
[2018-03-29] MEDS: APIXABAN 5 MG TAB PO SCH ×2 (07:41→20:40)
[2018-03-29] MEDS: SODIUM CHLORIDE 0.9% 1,000 ML IV SCH (14:43)
--- NOTE | 2018-03-29 16:47 | ECHOF ---
Referral Reason:symptomatic bradycardia, no echo in 8 months. MEASUREMENTS -------- HEIGHT: 182.9 cm WEIGHT: 120.7 kg BP: RVIDd: 2.7 cm (< 3.3) IVSd: 0.8 cm (0.6 - 1.1) LVIDd: 4.8 cm (3.9 - 5.3) LVPWd: 1.1 cm (0.6 - 1.1) IVSs: 1.3 cm LVIDs: 3.4 cm LVPWs: 1.4 cm Ao Diam: 3.3 cm (2.0 - 3.7) AV Cusp: 2.3 cm (1.5 - 2.6) LA Diam: 3.5 cm (2.7 - 3.8) MV EXCURSION: 18.048 mm (> 18.000) MV EF SLOPE: 144 mm/s (70 - 150) EPSS: 0.5 cm MV E Olegario: 0.87 m/s MV DecT: 196 ms MV A Olegario: 0.65 m/s MV E/A Ratio: 1.35 RAP: 5.00 mmHg RVSP: 13.97 mmHg FINDINGS -------- Sinus rhythm. This was a technically good study. LV size, wall thickness and systolic function are normal, with an EF greater than 55%. The left piero tricular size is normal. The right ventricle is normal in size. The left atrial size is normal. The right atrial size is normal. The aortic valve is trileaflet, and appears structurally normal. No aortic stenosis or regurgitation. Mild mitral annular calcification present. Mild mitral regurgitation is present. Mild tricuspid regurgitation present. There is no evidence of pulmonary hypertension. The right v entricular systolic pressure, as measured by Doppler, is 13.97mmHg. There is no pulmonic regurgitation present. The aortic root size is normal. There is no pericardial effusion. CONCLUSIONS -------- 1. LV size, wall thickness and systolic function are normal, with an EF greater than 55%. 2. The left ventricular size is normal. 3. The right ventricle is normal in size. 4. The left atrial size is normal. 5. The right atrial size is normal. 6. The aortic valve is trileaflet, and appears structurally normal. No aortic stenosis or regurgitati on. 7. Mild mitral annular calcification present. 8. Mild mitral regurgitation is present. 9. Mild tricuspid regurgitation present. 10. There is no evidence of pulmonary hypertension. 11. The right ventricular systolic pressure, as measured by Doppler, is 13.97mmHg. 12. There is no pulmonic regurgitation present. 13. The aortic root size is normal. 14. There is no pericardial effusion. DOCUMENTATION DESIGNER: Radha Horton RDCS
--- NOTE | 2018-03-29 18:51 | PN ---
PROGRESS NOTE CHIEF COMPLAINT: Generalized weakness, bradycardia and HIV. HISTORY OF PRESENT ILLNESS: This gentleman is just sitting in the hospital waiting for placement. He has no complaints. PHYSICAL EXAM: Cardiac exam is normal. The chest is clear. Abdomen is soft. IMPRESSION: 1. Generalized weakness. 2. Mental incapacitation. 3. HIV positivity. PLAN: Await discharge location. MMODL / IJN: [id number] /
[2018-03-29] MEDS: Elviteg/Cobi/Emtric/Tenofo Dis [Stribild Tablet] PO SCH (20:40)
[2018-03-29] MEDS: traZODone HCL 50 MG TAB PO SCH (20:40)
[2018-03-30] MEDS: SODIUM CHLORIDE 0.9% 1,000 ML IV SCH (07:35)
[2018-03-30] MEDS: APIXABAN 5 MG TAB PO SCH ×2 (07:41→21:24)
[2018-03-30] MEDS: FERROUS SULFATE 325 MG TAB PO SCH (07:41)
--- NOTE | 2018-03-30 13:25 | PN ---
PROGRESS NOTE CHIEF COMPLAINT: Weakness, bradycardia and HIV positivity. HISTORY OF PRESENT ILLNESS: There has been no interval change. We are waiting for discharge location. He is stable and vital signs normal. Exam is normal. MMODL / IJN: [id number] /
[2018-03-30] MEDS: traZODone HCL 50 MG TAB PO SCH (21:24)
[2018-03-30] MEDS: Elviteg/Cobi/Emtric/Tenofo Dis [Stribild Tablet] PO SCH (21:24)
[2018-03-31] MEDS: FERROUS SULFATE 325 MG TAB PO SCH (07:55)
[2018-03-31] MEDS: APIXABAN 5 MG TAB PO SCH ×2 (07:55→21:18)
[2018-03-31] MEDS: SODIUM CHLORIDE 0.9% 1,000 ML IV SCH (11:48)
--- NOTE | 2018-03-31 18:17 | PN ---
PROGRESS NOTE CHIEF COMPLAINT: Weakness, bradycardia, HIV and general debility. HISTORY OF PRESENT ILLNESS: There has been no change in this patient's status. We are waiting for placement. MMODL / IJN: [id number] /
[2018-03-31] MEDS: traZODone HCL 50 MG TAB PO SCH (21:18)
[2018-03-31] MEDS: Elviteg/Cobi/Emtric/Tenofo Dis [Stribild Tablet] PO SCH (21:18)
[2018-04-01] MEDS: APIXABAN 5 MG TAB PO SCH ×2 (08:16→20:13)
[2018-04-01] MEDS: FERROUS SULFATE 325 MG TAB PO SCH (08:16)
[2018-04-01] MEDS: SODIUM CHLORIDE 0.9% 1,000 ML IV SCH (14:14)
[2018-04-01] MEDS: traZODone HCL 50 MG TAB PO SCH (20:14)
[2018-04-01] MEDS: Elviteg/Cobi/Emtric/Tenofo Dis [Stribild Tablet] PO SCH (20:14)
[2018-04-02] MEDS: APIXABAN 5 MG TAB PO SCH ×2 (08:06→19:53)
[2018-04-02] MEDS: FERROUS SULFATE 325 MG TAB PO SCH (08:06)
[2018-04-02 09:36] VITALS: BMI 35.2
[2018-04-02] MEDS: SODIUM CHLORIDE 0.9% 1,000 ML IV SCH (15:12)
--- NOTE | 2018-04-02 17:25 | PN ---
PROGRESS NOTE DATE OF SERVICE: 04/02/2018 CHIEF COMPLAINT: General weakness, bradycardia and mental debility. HISTORY OF PRESENT ILLNESS: There has been no interval change in this gentleman's condition. We are waiting for a discharge location. MMODL / IJN: [id number] /
--- NOTE | 2018-04-02 18:10 | PN ---
PROGRESS NOTE DATE OF SERVICE: 04/01/2018 CHIEF COMPLAINT: Mental debility, bradycardia. HISTORY OF PRESENT ILLNESS: We are still waiting for discharge location for this gentleman. There has been no clinical change. MMODL / IJN: [id number] /
[2018-04-02] MEDS: traZODone HCL 50 MG TAB PO SCH (19:53)
[2018-04-02] MEDS: Elviteg/Cobi/Emtric/Tenofo Dis [Stribild Tablet] PO SCH (19:54)
[2018-04-03] MEDS: FERROUS SULFATE 325 MG TAB PO SCH (08:24)
[2018-04-03] MEDS: APIXABAN 5 MG TAB PO SCH ×2 (08:24→20:30)
[2018-04-03] MEDS: ACETAMINOPHEN TAB 325 MG TAB PO PRN (10:03)
[2018-04-03] MEDS: SODIUM CHLORIDE 0.9% 1,000 ML IV SCH (13:55)
--- NOTE | 2018-04-03 18:56 | PN ---
PROGRESS NOTE CHIEF COMPLAINT: Encephalopathy. HISTORY OF PRESENT ILLNESS: This patient is stable and awaits a place for him to go after he is discharged. MMODL / IJN: [id number] /
[2018-04-03] MEDS: traZODone HCL 50 MG TAB PO SCH (20:30)
[2018-04-03] MEDS: Elviteg/Cobi/Emtric/Tenofo Dis [Stribild Tablet] PO SCH (20:30)
[2018-04-04] MEDS: APIXABAN 5 MG TAB PO SCH ×2 (07:38→20:33)
[2018-04-04] MEDS: FERROUS SULFATE 325 MG TAB PO SCH (07:38)
[2018-04-04] MEDS: SODIUM CHLORIDE 0.9% 1,000 ML IV SCH (15:16)
[2018-04-04] MEDS: Elviteg/Cobi/Emtric/Tenofo Dis [Stribild Tablet] PO SCH (20:33)
[2018-04-04] MEDS: traZODone HCL 50 MG TAB PO SCH (20:33)
[2018-04-05] MEDS: FERROUS SULFATE 325 MG TAB PO SCH (07:42)
[2018-04-05] MEDS: APIXABAN 5 MG TAB PO SCH ×2 (07:42→21:01)
[2018-04-05] MEDS: SODIUM CHLORIDE 0.9% 1,000 ML IV SCH (15:39)
--- NOTE | 2018-04-05 15:43 | PN ---
PROGRESS NOTE DATE OF SERVICE: 04/04/2018. CHIEF COMPLAINT: Generalized weakness and episodes of bradycardia. HISTORY OF PRESENT ILLNESS: This gentleman is still waiting a place to go. PHYSICAL EXAM: Chest is clear. Cardiac exam is normal. IMPRESSION: 1. General weakness and debility. 2. Bradycardia. 3. HIV. PLAN: Await discharge location. MMODL / IJN: [id number] /
--- NOTE | 2018-04-05 16:37 | PN ---
PROGRESS NOTE CHIEF COMPLAINT: Bradycardia. HISTORY OF PRESENT ILLNESS: This gentleman is stable and we are still trying to find a place for him to be moved to after discharge. There has been no interval change. ENOCH / IJN: [id number] /
[2018-04-05] MEDS: traZODone HCL 50 MG TAB PO SCH (21:01)
[2018-04-05] MEDS: Elviteg/Cobi/Emtric/Tenofo Dis [Stribild Tablet] PO SCH (21:03)
[2018-04-06] MEDS: FERROUS SULFATE 325 MG TAB PO SCH (08:02)
[2018-04-06] MEDS: APIXABAN 5 MG TAB PO SCH ×2 (08:02→20:18)
--- NOTE | 2018-04-06 17:18 | PN ---
PROGRESS NOTE DATE OF SERVICE: 04/06/2018 CHIEF COMPLAINT: Bradycardia and mental incapacitation. HISTORY OF PRESENT ILLNESS: This gentleman is stable and awaits discharge plan, which still has not been formulated. MMODL / IJN: [id number] /
[2018-04-06] MEDS: traZODone HCL 50 MG TAB PO SCH (20:19)
[2018-04-06] MEDS: Elviteg/Cobi/Emtric/Tenofo Dis [Stribild Tablet] PO SCH (20:23)
[2018-04-07] MEDS: FERROUS SULFATE 325 MG TAB PO SCH (08:45)
[2018-04-07] MEDS: APIXABAN 5 MG TAB PO SCH ×2 (08:45→20:15)
[2018-04-07] MEDS: traZODone HCL 50 MG TAB PO SCH (20:15)
[2018-04-07] MEDS: Elviteg/Cobi/Emtric/Tenofo Dis [Stribild Tablet] PO SCH (20:15)
[2018-04-08] MEDS: APIXABAN 5 MG TAB PO SCH ×2 (08:18→21:07)
[2018-04-08] MEDS: FERROUS SULFATE 325 MG TAB PO SCH (08:21)
--- NOTE | 2018-04-08 16:53 | PN ---
PROGRESS NOTE DATE OF SERVICE: 04/07/2018 CHIEF COMPLAINT: Bradycardia, encephalopathy and mental debility. HISTORY OF PRESENT ILLNESS: There has been no change and we are still waiting for him to be placed. He is stable otherwise and exam is negative. MMODL / IJN: [id number] /
--- NOTE | 2018-04-08 17:23 | PN ---
PROGRESS NOTE CHIEF COMPLAINT: Encephalopathy and bradycardia. HISTORY OF PRESENT ILLNESS: This patient has been stable and we are awaiting discharge location. The exam is otherwise normal and unchanged except for his cognitive abilities. IMPRESSION: 1. General debility. 2. Weakness. 3. Bradycardia. PLAN: Continue to await discharge plan. ENOCH / VELIA: [id number] /
[2018-04-08] MEDS: traZODone HCL 50 MG TAB PO SCH (21:07)
[2018-04-08] MEDS: Elviteg/Cobi/Emtric/Tenofo Dis [Stribild Tablet] PO SCH (21:55)
[2018-04-09] MEDS: FERROUS SULFATE 325 MG TAB PO SCH (07:32)
[2018-04-09] MEDS: APIXABAN 5 MG TAB PO SCH ×2 (07:32→20:57)
[2018-04-09] MEDS: traZODone HCL 50 MG TAB PO SCH (20:57)
[2018-04-09] MEDS: Elviteg/Cobi/Emtric/Tenofo Dis [Stribild Tablet] PO SCH (20:58)
[2018-04-10] MEDS: APIXABAN 5 MG TAB PO SCH ×2 (07:46→21:17)
[2018-04-10] MEDS: FERROUS SULFATE 325 MG TAB PO SCH (07:46)
--- NOTE | 2018-04-10 14:16 | PN ---
PROGRESS NOTE CHIEF COMPLAINT: HIV positivity, encephalopathy. HISTORY OF PRESENT ILLNESS: There has been no change in this man's condition and we are still waiting for a discharge plan. Apparently, a guardian has to be assigned first. ENOCH / ASHLEYN: [id number] /
--- NOTE | 2018-04-10 14:31 | PN ---
PROGRESS NOTE DATE OF SERVICE: 04/10/2018 CHIEF COMPLAINT: Bradycardia, encephalopathy and HIV HISTORY OF PRESENT ILLNESS: This gentleman is a doing well and still awaits guardianship and placement. MMREGGIEL / IJN: [id number] /
[2018-04-10] MEDS: ACETAMINOPHEN TAB 325 MG TAB PO PRN (17:36)
[2018-04-10] MEDS: Elviteg/Cobi/Emtric/Tenofo Dis [Stribild Tablet] PO SCH (21:16)
[2018-04-10] MEDS: traZODone HCL 50 MG TAB PO SCH (21:17)
[2018-04-11] MEDS: ACETAMINOPHEN TAB 325 MG TAB PO PRN ×3 (04:19→23:27)
[2018-04-11] MEDS: FERROUS SULFATE 325 MG TAB PO SCH (08:35)
[2018-04-11] MEDS: APIXABAN 5 MG TAB PO SCH ×2 (08:35→21:56)
--- NOTE | 2018-04-11 12:39 | P.CN ---
Psychiatric Consult - . Consult date: 04/11/18 Consult:: 03/27/18 12:33 Psychiatric evaluation Assessment and Plan Assessment: This is a 27-year-old Afro-[place] Citizen male well-known to ID service has history of HIV, HIV encephalopathy and neuropathy currently under treatment with Stribild. Patient had a history of HIV diagnosed in 2008 but did not seek treatment. After several admissions here and after securing guardian, patient was located to a local [facility] and he currently has a public guardian and started treatment for HIV. Patient has been residing at the [facility] and he states that he has been taking his medication as directed daily. He apparently has had 3 falls in the past 24 hours including one that caused a laceration to his left hand requiring gluing. Patient was brought into [facility] emergency center. CAT scan of the brain did not reveal any acute intracranial hemorrhage or midline shift. Redemonstration of cerebral atrophy out of proportion for the patient's age and chronic small vessel ischemic change also advanced for the patient's age. Pansinusitis. Chest x-ray did not reveal any acute cardiopulmonary process. He has been afebrile. White blood cell count 2.9, hemoglobin 16.5, platelet count 141. BUN 17, creatinine 0.7. Troponins 0.016, 0.012, 0.012. Drug screen was negative. Urinalysis showed trace protein only. Patient denies any other injury with his falls. He denies having any vomiting or diarrhea. Grandmother is concerned the patient has been on eliquis for DVT and Dr. Ocasio was planning to wean him off this. Mental Status Examination - this is a 27-year-old -[place] Citizen male who was seen lying in his hospital bed eating lunch. He was able to stop eating lunch and was able to communicate through the entire mental status examination without any difficulty. He does have is slow speech but otherwise appears within normal limits. General Appearance: [ casual, appears stated age Speech/Language: [ slow, slurred, soft] Attitude/Behavior: [cooperative Mood: [euthymic Affect: [full range Orientation: [time, person, place situation] Thought Content: [wnl, denies delusions, obsessions, phobias, other] Risk Factors: [Denies that he is suicidal (ideations, plan), and/or Homicidal ( ideations, plan), other] Perception: [wnl, denies hallucinations (auditory, visual, tactile), other] Thought Processes: [goal-oriented Concentration/Attention Span: [wnl] [Per observation and interview with the patient] Recent Memory: [wnl] [0, 1, 2 or 3 out of 3 in 3 minutes] Remote Memory: [wnl,] [past events, as related history] Intelligence: [below average] [based on history, based on vocabulary, syntax, grammar, and content] Judgement: [good] [per patient's behavior/history of present illness] Insight: [good] [understanding severity of illness/history of present illness] Psychiatric impression: History of Bipolar disorder due to medical condition; 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 Psychiatric recommendations: No further recommendations at this time please discontinue one-to-one sitter and continue placement in working with guardian Thank you for the consult Ananth Malave D.O. PhD Plan: He is discontinue sitter is not suicidal homicidal he does not meet criteria for admission to the psychiatric unit Time with Patient: Less than 30
[2018-04-11] MEDS: Elviteg/Cobi/Emtric/Tenofo Dis [Stribild Tablet] PO SCH (21:56)
[2018-04-11] MEDS: traZODone HCL 50 MG TAB PO SCH (21:56)
[2018-04-12] MEDS: FERROUS SULFATE 325 MG TAB PO SCH (08:39)
[2018-04-12] MEDS: APIXABAN 5 MG TAB PO SCH ×2 (08:40→21:28)
[2018-04-12] MEDS: ACETAMINOPHEN TAB 325 MG TAB PO PRN ×3 (08:40→21:28)
--- NOTE | 2018-04-12 15:18 | PN ---
PROGRESS NOTE DATE OF SERVICE: 04/11/2018 CHIEF COMPLAINT: Encephalopathy, HIV and bipolar depression with agitation. HISTORY OF PRESENT ILLNESS: This gentleman has become very agitated and is being evaluated by Psychiatry. Still waiting for a bed. There may be a guardianship issue too. ENOCH / ASHLEYN: [id number] /
--- NOTE | 2018-04-12 15:30 | PN ---
PROGRESS NOTE DATE OF SERVICE: 04/12/2018 CHIEF COMPLAINT: Encephalopathy and HIV. HISTORY OF PRESENT ILLNESS: We are still waiting for a discharge plan and location for this gentleman. MMHALEY / ASHLEYN: [id number] /
[2018-04-12] MEDS: Elviteg/Cobi/Emtric/Tenofo Dis [Stribild Tablet] PO SCH (21:28)
[2018-04-12] MEDS: traZODone HCL 50 MG TAB PO SCH (21:28)
[2018-04-13] MEDS: APIXABAN 5 MG TAB PO SCH ×2 (07:47→20:50)
[2018-04-13] MEDS: ACETAMINOPHEN TAB 325 MG TAB PO PRN ×2 (07:48→17:55)
[2018-04-13] MEDS: FERROUS SULFATE 325 MG TAB PO SCH (07:48)
[2018-04-13] MEDS: Elviteg/Cobi/Emtric/Tenofo Dis [Stribild Tablet] PO SCH (20:50)
[2018-04-13] MEDS: traZODone HCL 50 MG TAB PO SCH (20:50)
[2018-04-14] MEDS: ACETAMINOPHEN TAB 325 MG TAB PO PRN ×3 (03:52→17:05)
[2018-04-14] MEDS: APIXABAN 5 MG TAB PO SCH ×2 (08:13→20:16)
[2018-04-14] MEDS: FERROUS SULFATE 325 MG TAB PO SCH (08:13)
[2018-04-14] MEDS: busPIRone HCl 5 MG TAB PO PRN (17:05)
[2018-04-14] MEDS: MELATONIN 5 MG TABLET PO SCH (20:16)
[2018-04-14] MEDS: traZODone HCL 50 MG TAB PO SCH (20:16)
[2018-04-14] MEDS: Elviteg/Cobi/Emtric/Tenofo Dis [Stribild Tablet] PO SCH (20:16)
--- NOTE | 2018-04-14 22:23 | PN ---
PROGRESS NOTE DATE OF SERVICE: 04/13/2018 CHIEF COMPLAINT: 1. Mental status issues, encephalopathy. 2. Bradycardia. 3. Weakness. 4. HIV positivity. HISTORY OF PRESENT ILLNESS: This gentleman has been stable and there has been no change. We are still waiting for guardianship and discharge planning. ENOCH / VELIA: [id number] /
--- NOTE | 2018-04-14 22:26 | PN ---
PROGRESS NOTE CHIEF COMPLAINT: Schizophrenia, HIV positivity and bradycardia. HISTORY OF PRESENT ILLNESS: This gentleman has reportedly developed a paralysis of one side of the face. This will be evaluated. It is likely this is Mcgee's palsy. We are still waiting for discharge plan. MMODL / IJN: [id number] /
[2018-04-15] MEDS: ACETAMINOPHEN TAB 325 MG TAB PO PRN ×3 (05:25→20:11)
[2018-04-15] MEDS: FERROUS SULFATE 325 MG TAB PO SCH (07:29)
[2018-04-15] MEDS: APIXABAN 5 MG TAB PO SCH ×2 (07:29→20:11)
--- NOTE | 2018-04-15 17:45 | PN ---
PROGRESS NOTE CHIEF COMPLAINT: Bradycardia, psychosis, HIV, and weakness of left side of the face. HISTORY OF PRESENT ILLNESS: This gentleman has developed a Mcgee's palsy on the left. PHYSICAL EXAM: He has left facial weakness, which is peripheral. Chest is clear. Cardiac exam is normal. IMPRESSION: 1. 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 2. HIV. 3. Psychosis. 4. Bradycardia. PLAN: Await discharge arrangements which still are not clear. MMODL / IJN: [id number] /
[2018-04-15] MEDS: traZODone HCL 50 MG TAB PO SCH (20:11)
[2018-04-15] MEDS: MELATONIN 5 MG TABLET PO SCH (20:11)
[2018-04-15] MEDS: busPIRone HCl 5 MG TAB PO PRN (20:11)
[2018-04-15] MEDS: Elviteg/Cobi/Emtric/Tenofo Dis [Stribild Tablet] PO SCH (20:11)
[2018-04-16] MEDS: APIXABAN 5 MG TAB PO SCH ×2 (07:36→22:00)
[2018-04-16] MEDS: FERROUS SULFATE 325 MG TAB PO SCH (07:36)
[2018-04-16] MEDS: ACETAMINOPHEN TAB 325 MG TAB PO PRN ×3 (07:38→22:06)
[2018-04-16 09:45] VITALS: RESP 16
--- NOTE | 2018-04-16 16:13 | PN ---
PROGRESS NOTE CHIEF COMPLAINT: HIV positivity, bradycardia and psychosis. HISTORY OF PRESENT ILLNESS: This gentleman is complaining of a headache today and is requesting Motrin. There is still no response from the guardian as to where this patient will be going. PHYSICAL EXAMINATION: Unchanged. Neck is supple. Pupils are equal and round. IMPRESSION: 1. Headache. 2. Human immunodeficiency virus positivity. 3. Bradycardia. 4. Psychosis. PLAN: Motrin for headache. MMODL / IJN: [id number] /
[2018-04-16] MEDS: IBUPROFEN 400 MG TAB PO PRN (17:57)
[2018-04-16] MEDS: traZODone HCL 50 MG TAB PO SCH (22:00)
[2018-04-16] MEDS: MELATONIN 5 MG TABLET PO SCH (22:00)
[2018-04-16] MEDS: busPIRone HCl 5 MG TAB PO PRN (22:02)
[2018-04-16] MEDS: Elviteg/Cobi/Emtric/Tenofo Dis [Stribild Tablet] PO SCH (22:02)
[2018-04-17] MEDS: ACETAMINOPHEN TAB 325 MG TAB PO PRN ×2 (04:30→10:29)
[2018-04-17] MEDS: FERROUS SULFATE 325 MG TAB PO SCH (07:27)
[2018-04-17] MEDS: APIXABAN 5 MG TAB PO SCH (07:27)
[2018-04-17] MEDS: IBUPROFEN 400 MG TAB PO PRN (07:27)
[2018-04-17 09:02] VITALS: BP 112/73; PULSE 54; TEMP 97.5
--- NOTE | 2018-04-17 11:58 | DS ---
DISCHARGE SUMMARY CHIEF COMPLAINT: Weakness, mental debility and positive HIV. HISTORY OF PRESENT ILLNESS AND PHYSICAL EXAM: Details of this man's history and physical can be found in the initial workup. LABORATORY STUDIES: While he was in the hospital, he had laboratory studies, details of which can be found in the laboratory section of his chart. COURSE IN HOSPITAL: After admission, he was placed on bedrest, started on intravenous fluids and he was on telemetry. Bradycardia corrected itself. He was seen by Infectious Disease for his HIV positivity and no changes were made in his program. While in the hospital, he became agitated from time to time and did develop a left-sided Mcgee's palsy. Most of this hospitalization was spent looking for places for him to go after he got out. He had to be assigned a guardian and multiple places refused to take him. Arrangements were made for him to be placed on the . FINAL DIAGNOSES: 1. Bradycardia. 2. Mental debility. 3. HIV positivity. 4. Delirium. 5. Agitation. 6. Left-sided Mcgee's palsy. OPERATIONS: None. CONSULTATION: Infectious Disease and Cardiology. He is improved. MMODL / IJN: [id number] /
== END 2018-04-17 13:07 | disposition home health service (06) ==
LOC: EC 09:47 → EEVIPCON 09:47 → 3SCARD 14:57 → 4MS4W 03-28 19:47
PROVIDERS: ADMIT Family Medicine; ATTEND Family Medicine
DX: B20 Human immunodeficiency virus [HIV] disease (principal); R53.1 Weakness; R00.1 Bradycardia, unspecified; G93.49 Other encephalopathy; G31.84 Mild cognitive impairment of uncertain or unknown etiology; G63 Polyneuropathy in diseases classified elsewhere; G51.0 Bell's palsy; G72.9 Myopathy, unspecified; I44.1 Atrioventricular block, second degree; R53.81 Other malaise; R45.1 Restlessness and agitation; I67.82 Cerebral ischemia; J32.4 Chronic pansinusitis; F31.30 Bipolar disorder, current episode depressed, mild or moderate severity, unspecified; F17.210 Nicotine dependence, cigarettes, uncomplicated; R26.81 Unsteadiness on feet; R80.9 Proteinuria, unspecified; R60.0 Localized edema; D72.819 Decreased white blood cell count, unspecified; D69.6 Thrombocytopenia, unspecified; R74.0 Nonspecific elevation of levels of transaminase and lactic acid dehydrogenase [LDH]; R51 Headache; W19.XXXA Unspecified fall, initial encounter; S61.412A Laceration without foreign body of left hand, initial encounter; Z79.01 Long term (current) use of anticoagulants; Z79.899 Other long term (current) drug therapy; Z91.81 History of falling; Z86.718 Personal history of other venous thrombosis and embolism; Z82.0 Family history of epilepsy and other diseases of the nervous system; Z83.3 Family history of diabetes mellitus; Z81.8 Family history of other mental and behavioral disorders; Z82.3 Family history of stroke
CPT/HCPCS: 12001; 90471; 96360; 96361; 99283; 99285; 36415; 94760 ×2; 93005; 93306; 97116 ×6; 97163; 97530 ×7; 97535 ×11; 97166; 87536; 80053; 86360; 82140; 82550; 82553; 84484; 85025; 81003; 87324; 80306; 71046; 70450; 70553; 90715; G0378 ×23; A9585

== ENCOUNTER 2018-05-16 21:06 | Emergency (ER) | payer OTHER ==
--- NOTE | 2018-05-16 21:39 | ED ---
General Adult HPI - General Chief complaint: Neuro Symptoms/Deficit Stated complaint: Fall Time Seen by Provider: 05/16/18 21:10 Source: patient, EMS Mode of arrival: EMS Limitations: physical limitation - History of Present Illness Initial comments: This patient is 27-year-old man who comes by ambulance from his long term after having a fall there. 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 The patient states he did not have any complaint after the fall. The public guardian was called on the patient's behalf and requested that he be evaluated. The patient has history of HIV encephalopathy with gait disturbance. The patient is denying head, neck, chest, back or abdomen pain. He is not having any pain of the extremities and he denies any weakness. He feels he is at his baseline. Onset/Timin -: hour(s) - Related Data Home Medications Medication Instructions Recorded Confirmed Apixaban [Eliquis] 5 mg PO BID@0800,209903/26/18 05/16/18 Elviteg/Tracee/Emtric/Tenofo Dis 1 tab PO HS@209903/26/18 05/16/18 [Stribild Tablet] Melatonin 5 mg PO HS@209903/26/18 05/16/18 traZODone HCL 50 mg PO HS@2100 03/26/18 05/16/18 ARIPiprazole 10 mg PO HS@2100 05/16/18 05/16/18 Hydrochlorothiazide 12.5 mg PO DAILY 05/16/18 05/16/18 Pregabalin [Lyrica] 75 mg PO BID 05/16/18 05/16/18 Previous Rx's Medication Instructions Recorded Ferrous Sulfate [Iron (65 MG 325 mg PO DAILY #28 tab 12/06/17 Elemental)] Allergies Allergy/AdvReac Type Severity Reaction Status Date / Time No Known Allergies Allergy Verified 05/16/18 21:24 Review of Systems ROS Statement: Those systems with pertinent positive or pertinent negative responses have been documented in the HPI. ROS Other: All systems not noted in ROS Statement are negative. Constitutional: Denies: weakness Eyes: Denies: vision change Respiratory: Denies: cough, dyspnea Cardiovascular: Denies: chest pain, syncope Gastrointestinal: Denies: abdominal pain, vomiting, diarrhea Musculoskeletal: Denies: back pain Neurological: Reports: weakness (Chronic right-sided deficit secondary to stroke ). Denies: headache, numbness, paresthesias Hematological/Lymphatic: Reports: easy bleeding (eliquis) Past Medical History Past Medical History: CVA/TIA, Deep Vein Thrombosis (DVT) Additional Past Medical History / Comment(s): per grand mother pt dx w.hiv around 2009 and in past was'nt taking his meds., HIV encephalopathy, neuropathy lower extremities, bipolar depression History of Any Multi-Drug Resistant Organisms: None Reported Past Surgical History: Adenoidectomy, Tonsillectomy Additional Past Surgical History / Comment(s): tubes in ears as child Past Anesthesia/Blood Transfusion Reactions: No Reported Reaction Past Psychological History: Bipolar, Depression Smoking Status: Current every day smoker Past Alcohol Use History: None Reported Past Drug Use History: None Reported - Past Family History Mother History Unknown: Yes Family Medical History: CVA/TIA, Diabetes Mellitus Additional Family Medical History / Comment(s): MS Father Additional Family Medical History / Comment(s): BIPOLAR DEPRESSION General Exam Limitations: physical limitation General appearance: alert, in no apparent distress Head exam: Present: atraumatic, normocephalic Eye exam: Present: normal appearance. Absent: scleral icterus, conjunctival injection ENT exam: Present: normal oropharynx Neck exam: Present: normal inspection, full ROM. Absent: tenderness Respiratory exam: Present: normal lung sounds bilaterally. Absent: respiratory distress, wheezes, rales, rhonchi, stridor, chest wall tenderness Cardiovascular Exam: Present: normal rhythm, bradycardia (Rate is 48 at my exam) , normal heart sounds. Absent: systolic murmur, diastolic murmur, rubs, gallop GI/Abdominal exam: Present: soft. Absent: distended, tenderness, guarding, rebound, rigid, mass Extremities exam: Present: normal inspection, normal capillary refill. Absent: pedal edema, calf tenderness Back exam: Present: normal inspection. Absent: vertebral tenderness Neurological exam: Present: alert, oriented X3, CN II-XII intact (History of Mcgee's palsy with facial weakness), motor sensory deficit (Patient has lower extremity weakness which he states is chronic.) Skin exam: Present: warm, dry, intact, normal color. Absent: rash Course Vital Signs 05/16/18 05/16/1805/16/19 21:18 21:30 22:00 Temperature 96.9 F L Pulse Rate 42 L 42 L 45 L Respiratory 14 17 16 Rate Blood Pressure 113/78 112/82 120/88 O2 Sat by Pulse 99 Oximetry 05/16/18 05/16/18 05/16/18 22:10 22:20 23:36 Temperature Pulse Rate 39 L 42 L Respiratory 7 L 10 L Rate Blood Pressure 104/78 104/78 94/67 O2 Sat by Pulse 97 99 Oximetry 05/17/18 01:45 Temperature 95.2 F L Pulse Rate 47 L Respiratory 16 Rate Blood Pressure 103/57 O2 Sat by Pulse 97 Oximetry EKG Findings - EKG Results: EKG: interpreted by ERMD, sinus rhythm, normal axis EKG shows: bradycardia (Rate 44 bpm) - Blocks, [place], Hypertrophy, ST Abn: AV and intraventricular conduction: 1 AV block, intraventricular conduction delay Repolarization changes or abnormalities: nonspecific abnormality, ST segment, and/or T wave Medical Decision Making - Lab Data Result diagrams: 05/16/18 21:50 05/16/18 21:50 Lab Results 05/16/18 05/16/18 05/16/18 Range/Units 21:49 21:50 21:50 WBC 2.1 L (3.8-10.6) k/uL RBC 5.27 (4.30-5.90) m/uL Hgb 16.6 (13.0-17.5) gm/dL Hct 51.3 (39.0-53.0) % MCV 97.2 (80.0-100.0) fL MCH 31.4 (25.0-35.0) pg MCHC 32.3 (31.0-37.0) g/dL RDW 15.1 (11.5-15.5) % Plt Count 94 L (150-450) k/uL Neutrophils % (Manual) 59 % Lymphocytes % (Manual) 34 % Monocytes % (Manual) 7 % Neutrophils # (Manual) 1.24 L (1.3-7.7) k/uL Lymphocytes # (Manual) 0.71 L (1.0-4.8) k/uL Monocytes # (Manual) 0.15 (0-1.0) k/uL Nucleated RBCs 0 (0-0) /100 WBC Manual Slide Review Performed RBC Morphology Normal Sodium 139 (137-145) mmol/L Potassium 4.0 (3.5-5.1) mmol/L Chloride 101 (98-107) mmol/L Carbon Dioxide 31 H (22-30) mmol/L Anion Gap 7 mmol/L BUN 25 H (9-20) mg/dL Creatinine 0.87 (0.66-1.25) mg/dL Est GFR (CKD-EPI)AfAm >90 (>60 ml/min/1.73 sqM) Est GFR (CKD-EPI)NonAf >90 (>60 ml/min/1.73 sqM) Glucose 107 H (74-99) mg/dL POC Glucose (mg/dL) 106 H (75-99) mg/dL POC Glu [facility] Safety Officer ID Rosita Linares Calcium 10.2 (8.4-10.2) mg/dL Troponin I (0.000-0.034) ng/mL 05/16/18 Range/Units 21:50 WBC (3.8-10.6) k/uL RBC (4.30-5.90) m/uL Hgb (13.0-17.5) gm/dL Hct (39.0-53.0) % MCV (80.0-100.0) fL MCH (25.0-35.0) pg MCHC (31.0-37.0) g/dL RDW (11.5-15.5) % Plt Count (150-450) k/uL Neutrophils % (Manual) % Lymphocytes % (Manual) % Monocytes % (Manual) % Neutrophils # (Manual) (1.3-7.7) k/uL Lymphocytes # (Manual) (1.0-4.8) k/uL Monocytes # (Manual) (0-1.0) k/uL Nucleated RBCs (0-0) /100 WBC Manual Slide Review RBC Morphology Sodium (137-145) mmol/L Potassium (3.5-5.1) mmol/L Chloride (98-107) mmol/L Carbon Dioxide (22-30) mmol/L Anion Gap mmol/L BUN (9-20) mg/dL Creatinine (0.66-1.25) mg/dL Est GFR (CKD-EPI)AfAm (>60 ml/min/1.73 sqM) Est GFR (CKD-EPI)NonAf (>60 ml/min/1.73 sqM) Glucose (74-99) mg/dL POC Glucose (mg/dL) (75-99) mg/dL POC Glu [facility] Safety Officer ID Calcium (8.4-10.2) mg/dL Troponin I <0.012 (0.000-0.034) ng/mL Disposition Clinical Impression: HIV encephalopathy Disposition: HOME SELF-CARE Condition: Fair Instructions (If sedation given, give patient instructions): Encephalopathy (DC ) Is patient prescribed a controlled substance at d/c from ED?: No Referrals: Nawaf Miranda MD [STAFF PHYSICIAN] - 1-2 days
[2018-05-16 21:51] LABS: Glucose,Whole Blood 106 mg/dL (75-99)
[2018-05-16 22:15] LABS: Anion Gap 7 mmol/L; Blood Urea Nitrogen 25 mg/dL (9-20); Calcium 10.2 mg/dL (8.4-10.2); Carbon Dioxide 31 mmol/L (22-30); Chloride 101 mmol/L (98-107); Glucose 107 mg/dL (74-99); Sodium 139 mmol/L (137-145)
[2018-05-16 22:24] LABS: HCT 51.3 % (39.0-53.0); HGB 16.6 gm/dL (13.0-17.5); MCH 31.4 pg (25.0-35.0); MCHC 32.3 g/dL (31.0-37.0); MCV 97.2 fL (80.0-100.0); Mean Platelet Volume 8.2; RBC 5.27 m/uL (4.30-5.90); RDW 15.1 % (11.5-15.5); WBC 2.1 k/uL (3.8-10.6)
[2018-05-16 22:45] LABS: Lymphocytes # (M) 0.71 k/uL (1.0-4.8); Monocytes # (M) 0.15 k/uL (0-1.0); Neutrophils # (M) 1.24 k/uL (1.3-7.7); Neutrophils % (M) 59 %; Nucleated Red Blood Cells 0 /100 WBC (0-0); Total Cells Counted 100
[2018-05-16 22:46] LABS: Platelet Count 94 k/uL (150-450)
--- NOTE | 2018-05-16 23:34 | CT ---
EXAM: CT Head Without Intravenous Contrast CLINICAL HISTORY: Trauma TECHNIQUE: Axial computed tomography images of the head/brain without intravenous contrast. CTDI is 0.085, 0.085, 49.1 mGy and DLP is 1075.4 mGy-cm. This CT exam was performed using one or more of the following dose reduction techniques: automated exposure control, adjustment of the mA and/or kV according to patient size, and/or use of iterative reconstruction technique. COMPARISON: CT head dated 03/26/2018 FINDINGS: Brain: No acute infarct, hemorrhage, mass or edema. Again noted is cerebral atrophy and probable chronic small vessel ischemic disease which is out of proportion to patient's age. Ventricles: Unremarkable. No ventriculomegaly. Bones/joints: No acute calvarial abnormality. Soft tissues: Unremarkable. Sinuses: Mild mucosal thickening in the paranasal sinuses. Mastoid air cells: Partial desiccation of the left mastoid air cells. IMPRESSION: No acute findings.
[2018-05-16] MEDS ORDERED: SODIUM CHLORIDE 0.9% 1,000 ML IV ONE (23:49)
[2018-05-17 01:46] VITALS: TEMP 95.2
[2018-05-17 03:53] VITALS: BP 117/83; PULSE 41; RESP 14
== END 2018-05-17 03:10 | disposition home or self-care (01) ==
LOC: EC 21:06
DX: B20 Human immunodeficiency virus [HIV] disease (principal); G32.89 Other specified degenerative disorders of nervous system in diseases classified elsewhere; F31.9 Bipolar disorder, unspecified; F17.200 Nicotine dependence, unspecified, uncomplicated; Z86.73 Personal history of transient ischemic attack (TIA), and cerebral infarction without residual deficits; Z86.718 Personal history of other venous thrombosis and embolism; Z79.01 Long term (current) use of anticoagulants; Z79.899 Other long term (current) drug therapy
CPT/HCPCS: 36415; 70450; 80048; 84484; 85025; 93005; 96360; 99284

== ENCOUNTER 2018-05-19 09:29 | Emergency (ER) | payer OTHER ==
--- NOTE | 2018-05-19 10:51 | XR ---
EXAMINATION TYPE: XR chest 2V DATE OF EXAM: 05/19/2018 COMPARISON: 03/26/2018 HISTORY: Chest pain TECHNIQUE: Frontal and lateral views of the chest are obtained. FINDINGS: There is no focal air space opacity. No evidence for pneumothorax. No pleural effusion. The cardiac silhouette size is within normal limits. The osseous structures are grossly intact. IMPRESSION: 1. No acute cardiopulmonary process.
--- NOTE | 2018-05-19 11:37 | ED ---
General Adult HPI - General Chief complaint: Weakness Stated complaint: immobility Time Seen by Provider: 05/19/18 09:37 Source: patient, EMS, RN notes reviewed, old records reviewed Mode of arrival: EMS Limitations: physical limitation - History of Present Illness Initial comments: 27-year-old male history of HIV, history of encephalopathy, history generalized weakness and fatigue, and from assisted living facility for evaluation of increased weakness. Patient has no complaints. He is alert and oriented 3. He states he is weak but this is his baseline, unchanged. He does admit to depression and states these not suicidal, and has not had any thoughts of hurting himself or suicide attempt. He denies any physical complaints. He does report a mild cough which is present during examination. Denies fever or chills. Denies pain complaints. He does not want to be in the emergency department at this time. He denies any acute worsening of any of his symptoms. - Related Data Home Medications Medication Instructions Recorded Confirmed Apixaban [Eliquis] 5 mg PO BID@0800,209903/26/18 05/19/18 Elviteg/Tracee/Emtric/Tenofo Dis 1 tab PO HS@2100 03/26/18 05/19/18 [Stribild Tablet] Melatonin 5 mg PO HS@2100 03/26/18 05/19/18 traZODone HCL 50 mg PO HS@2100 03/26/18 05/19/18 ARIPiprazole 10 mg PO HS@2100 05/16/18 05/19/18 Hydrochlorothiazide 12.5 mg PO DAILY 05/16/18 05/19/18 Pregabalin [Lyrica] 75 mg PO DIRECTED 05/19/18 05/19/18 Previous Rx's Medication Instructions Recorded Ferrous Sulfate [Iron (65 MG 325 mg PO DAILY #28 tab 12/06/17 Elemental)] Allergies Allergy/AdvReac Type Severity Reaction Status Date / Time No Known Allergies Allergy Verified 05/16/18 21:24 Review of Systems ROS Statement: Those systems with pertinent positive or pertinent negative responses have been documented in the HPI. ROS Other: All systems not noted in ROS Statement are negative. Past Medical History Past Medical History: CVA/TIA, Deep Vein Thrombosis (DVT) Additional Past Medical History / Comment(s): per grand mother pt dx w.hiv around 2009 and in past was'nt taking his meds., HIV encephalopathy, neuropathy lower extremities, bipolar depression History of Any Multi-Drug Resistant Organisms: None Reported Past Surgical History: Adenoidectomy, Tonsillectomy Additional Past Surgical History / Comment(s): tubes in ears as child Past Anesthesia/Blood Transfusion Reactions: No Reported Reaction Past Psychological History: Bipolar, Depression Smoking Status: Current every day smoker Past Alcohol Use History: None Reported Past Drug Use History: None Reported - Past Family History Mother History Unknown: Yes Family Medical History: CVA/TIA, Diabetes Mellitus Additional Family Medical History / Comment(s): MS Father Additional Family Medical History / Comment(s): BIPOLAR DEPRESSION General Exam Limitations: physical limitation General appearance: alert, in no apparent distress Head exam: Present: atraumatic, normocephalic Eye exam: Present: normal appearance, PERRL ENT exam: Present: normal exam Neck exam: Present: normal inspection. Absent: tenderness, meningismus Respiratory exam: Present: normal lung sounds bilaterally. Absent: respiratory distress, wheezes, rales Cardiovascular Exam: Present: normal rhythm, bradycardia GI/Abdominal exam: Present: soft. Absent: distended, tenderness, guarding Extremities exam: Present: normal inspection, normal capillary refill, other ( Lower extremities, 5 out of 5 strength) Neurological exam: Present: alert, oriented X3. Absent: motor sensory deficit ( No focal findings.) Psychiatric exam: Present: depressed. Absent: suicidal ideation Skin exam: Present: warm, dry, intact Course Vital Signs 05/19/18 09:31 Pulse Rate 46 L Respiratory 16 Rate Blood Pressure 125/68 O2 Sat by Pulse 99 Oximetry Medical Decision Making - Medical Decision Making Patient presenting to the emergency department for generalized weakness. Patient denies any change in his symptoms. He has history of HIV encephalopathy and generalized weakness at baseline. He does not want any laboratory testing, he refuses EKG. He will receive chest x-ray for mild cough although no respiratory distress. This is the only test is willing to undergo the emergency department. He is alert and oriented and will comply with his requests. Chest x-rays obtained, negative for focal pneumonia or acute findings. At the patient's request this will be the end of evaluation in the emergency department. He can be discharged home. Disposition Clinical Impression: Depression, Lower extremity weakness Disposition: HOME SELF-CARE Condition: Fair Is patient prescribed a controlled substance at d/c from ED?: No Referrals: None,Stated [Primary Care Provider] - 1-2 days Ashok Coats MD [STAFF PHYSICIAN] - 1-2 days Time of Disposition: 11:36
[2018-05-19 16:25] VITALS: BP 119/67; PULSE 42; RESP 19; TEMP 98.1
== END 2018-05-19 14:30 | disposition home or self-care (01) ==
LOC: EC 09:29
DX: F31.30 Bipolar disorder, current episode depressed, mild or moderate severity, unspecified (principal); R29.898 Other symptoms and signs involving the musculoskeletal system; R00.1 Bradycardia, unspecified; R53.1 Weakness; R05 Cough; G62.9 Polyneuropathy, unspecified; B20 Human immunodeficiency virus [HIV] disease; G93.49 Other encephalopathy; F17.200 Nicotine dependence, unspecified, uncomplicated; Z79.01 Long term (current) use of anticoagulants; Z79.899 Other long term (current) drug therapy; Z86.73 Personal history of transient ischemic attack (TIA), and cerebral infarction without residual deficits; Z86.718 Personal history of other venous thrombosis and embolism; Z81.8 Family history of other mental and behavioral disorders
CPT/HCPCS: 71046; 99285

== ENCOUNTER 2018-05-20 02:49 | Inpatient (IN) | payer OTHER ==
[2018-05-20] MEDS ORDERED: SODIUM CHLORIDE 0.9% 1,000 ML IV STA (03:43)
--- NOTE | 2018-05-20 03:44 | ED ---
General Adult HPI - General Chief complaint: Recheck/Abnormal Lab/Rx Stated complaint: immobility Time Seen by Provider: 05/20/18 02:56 Source: patient, EMS Mode of arrival: EMS Limitations: physical limitation - History of Present Illness Initial comments: Franck is a 27-year-old man with a history of HIV encephalitis for which he now lives in a long term facility. Patient has been sent to our emergency department 2 times in the previous week for evaluation of generalized weakness. Patient was again sent to the emergency department today for evaluation of generalized weakness prior to transport to the ER patient was given all his nighttime sleeping medications upon arrival he is awake alert oriented but drowsy. Patient states that he needed someone to wipe his butt because was too weak. - Related Data Home Medications Medication Instructions Recorded Confirmed Apixaban [Eliquis] 5 mg PO BID@0800,2100 03/26/18 05/20/18 Elviteg/Tracee/Emtric/Tenofo Dis 1 tab PO HS@209903/26/18 05/20/18 [Stribild Tablet] Melatonin 5 mg PO HS@209903/26/18 05/20/18 traZODone HCL 50 mg PO HS@2100 03/26/18 05/20/18 ARIPiprazole 10 mg PO HS@2100 05/16/18 05/20/18 Hydrochlorothiazide 12.5 mg PO DAILY 05/16/18 05/20/18 Pregabalin [Lyrica] 75 mg PO DIRECTED 05/19/18 05/20/18 Previous Rx's Medication Instructions Recorded Ferrous Sulfate [Iron (65 MG 325 mg PO DAILY #28 tab 12/06/17 Elemental)] Allergies Allergy/AdvReac Type Severity Reaction Status Date / Time No Known Allergies Allergy Verified 05/20/18 07:02 Review of Systems ROS Statement: Those systems with pertinent positive or pertinent negative responses have been documented in the HPI. ROS Other: All systems not noted in ROS Statement are negative. Past Medical History Past Medical History: CVA/TIA, Deep Vein Thrombosis (DVT) Additional Past Medical History / Comment(s): per grand mother pt dx w.hiv around 2009 and in past was'nt taking his meds., HIV encephalopathy, neuropathy lower extremities, bipolar depression History of Any Multi-Drug Resistant Organisms: None Reported Past Surgical History: Adenoidectomy, Tonsillectomy Additional Past Surgical History / Comment(s): tubes in ears as child Past Anesthesia/Blood Transfusion Reactions: No Reported Reaction Past Psychological History: Bipolar, Depression Smoking Status: Current every day smoker Past Alcohol Use History: None Reported Past Drug Use History: None Reported - Past Family History Mother History Unknown: Yes Family Medical History: CVA/TIA, Diabetes Mellitus Additional Family Medical History / Comment(s): MS Father Additional Family Medical History / Comment(s): BIPOLAR DEPRESSION General Exam - General Exam Comments Initial Comments: Physical Exam GENERAL: Chronically ill appearing Dehydrated Dried cracked lips HENT: Normocephalic, Atraumatic. EYES: PERRL, EOMI PULMONARY: Unlabored respirations. No audible rales rhonchi or wheezing was noted. CARDIOVASCULAR: There is a regular rate and rhythm without any murmurs gallops or rubs. ABDOMEN: Soft and nontender with normal bowel sounds. SKIN: Skin is clear with no lesions or rashes and otherwise unremarkable. : Deferred NEUROLOGIC: Awake, alert to self and location MUSCULOSKELETAL: Normal extremities with adequate strength and full range of motion. No lower extremity swelling or edema. No calf tenderness. PSYCHIATRIC: Flat affect Limitations: no limitations Limitations: physical limitation Course Vital Signs 05/20/18 05/20/18 02:56 07:22 Temperature 97.6 F Pulse Rate 56 L Respiratory 18 18 Rate Blood Pressure 101/76 O2 Sat by Pulse 98 Oximetry Medical Decision Making - Medical Decision Making Patient was seen and evaluated history was obtained from patient and review of medical record Patient was seen and evaluated twice earlier this week had a chest x-ray which was normal he refused labs are evaluation and its and patient was given a sling medications prior to arrival in the emergency department Patient's labs are baseline aside from elevated BUN and creatinine is likely secondary to prerenal dehydration patient was given a liter of IV fluid Patient was reevaluated at 6 AM, patient is very drowsy he wakes only to physical stimuli Patient care was discussed with [facility] - agree with plan for placing patient in observation with Psych consult. - Lab Data Result diagrams: 05/20/18 04:00 05/20/18 04:00 Lab Results 05/20/18 05/20/18 Range/Units 04:00 04:00 WBC 4.4 (3.8-10.6) k/uL RBC 5.20 (4.30-5.90) m/uL Hgb 16.8 (13.0-17.5) gm/dL Hct 51.2 (39.0-53.0) % MCV 98.4 (80.0-100.0) fL MCH 32.3 (25.0-35.0) pg MCHC 32.8 (31.0-37.0) g/dL RDW 15.2 (11.5-15.5) % Plt Count 66 L (150-450) k/uL Neutrophils % 80 % Lymphocytes % 12 % Monocytes % 5 % Eosinophils % 2 % Basophils % 0 % Neutrophils # 3.5 (1.3-7.7) k/uL Lymphocytes # 0.5 L (1.0-4.8) k/uL Monocytes # 0.2 (0-1.0) k/uL Eosinophils # 0.1 (0-0.7) k/uL Basophils # 0.0 (0-0.2) k/uL Manual Slide Review Performed Large Platelets Present Macrocytosis Slight Sodium 140 (137-145) mmol/L Potassium 4.5 (3.5-5.1) mmol/L Chloride 103 (98-107) mmol/L Carbon Dioxide 31 H (22-30) mmol/L Anion Gap 6 mmol/L BUN 25 H (9-20) mg/dL Creatinine 1.20 (0.66-1.25) mg/dL Est GFR (CKD-EPI)AfAm >90 (>60 ml/min/1.73 sqM) Est GFR (CKD-EPI)NonAf 83 (>60 ml/min/1.73 sqM) Glucose 74 (74-99) mg/dL Calcium 9.8 (8.4-10.2) mg/dL Magnesium 2.1 (1.6-2.3) mg/dL Total Bilirubin 0.7 (0.2-1.3) mg/dL AST 53 (17-59) U/L ALT 47 (21-72) U/L Alkaline Phosphatase 91 (38-126) U/L Total Protein 7.4 (6.3-8.2) g/dL Albumin 3.7 (3.5-5.0) g/dL TSH 2.700 (0.465-4.680) mIU/L Disposition Clinical Impression: Generalized weakness, Dehydration, HIV encephalopathy Disposition: ADMITTED IP TO THIS HOSP Condition: Stable Referrals: None,Stated [Primary Care Provider] - 1-2 days
[2018-05-20 05:30] LABS: Basophils % (A) 0 %; Eosinophils # (A) 0.1 k/uL (0-0.7); Eosinophils % (A) 2 %; HCT 51.2 % (39.0-53.0); HGB 16.8 gm/dL (13.0-17.5); Lymphocytes # (A) 0.5 k/uL (1.0-4.8); Lymphocytes % (A) 12 %; MCH 32.3 pg (25.0-35.0); MCHC 32.8 g/dL (31.0-37.0); MCV 98.4 fL (80.0-100.0); Macrocytosis Slight; Mean Platelet Volume 9.1; Monocytes # (A) 0.2 k/uL (0-1.0); Monocytes % (A) 5 %; Neutrophils # (A) 3.5 k/uL (1.3-7.7); Neutrophils % (A) 80 %; RDW 15.2 % (11.5-15.5); WBC 4.4 k/uL (3.8-10.6)
[2018-05-20 05:58] LABS: ALT 47 U/L (21-72); AST 53 U/L (17-59); Albumin 3.7 g/dL (3.5-5.0); Alkaline Phosphatase 91 U/L (38-126); Anion Gap 6 mmol/L; Blood Urea Nitrogen 25 mg/dL (9-20); Calcium 9.8 mg/dL (8.4-10.2); Carbon Dioxide 31 mmol/L (22-30); Chloride 103 mmol/L (98-107); Glucose 74 mg/dL (74-99); Magnesium 2.1 mg/dL (1.6-2.3); Potassium 4.5 mmol/L (3.5-5.1); Sodium 140 mmol/L (137-145); Total Bilirubin 0.7 mg/dL (0.2-1.3); Total Protein 7.4 g/dL (6.3-8.2)
[2018-05-20 06:02] LABS: Platelet Count 66 k/uL (150-450)
[2018-05-20 06:04] LABS: Large Platelets Present
[2018-05-20] MEDS ORDERED: NALOXONE 0.4 MG/ML 1 ML VIAL IV PRN (07:27)
[2018-05-20] MEDS: SODIUM CHLORIDE 0.9% 1,000 ML IV SCH ×3 (07:36→23:54)
--- NOTE | 2018-05-20 08:06 | CT ---
EXAMINATION TYPE: CT brain wo con DATE OF EXAM: 05/20/2018 HISTORY: altered mental status CT DLP: 1074.4 mGycm. Automated Exposure Control for Dose Reduction was Utilized. TECHNIQUE: CT scan of the head is performed without contrast. COMPARISON: CT brain from 4 days ago. MRI brain March 28, 2018. FINDINGS: There is no acute intracranial hemorrhage or midline shift identified. There is diffuse v entricular and sulcal prominence consistent with diffuse age-related cerebral atrophy. There is low- attenuation in the periventricular white matter consistent with chronic small vessel ischemic change. Few scattered small mucous retention cysts and/or polyps throughout the ethmoid, left sphenoid, and visualized portion of both maxillary sinuses are redemonstrated. IMPRESSION: No acute intracranial hemorrhage or midline shift. There is mild diffuse age-related ce rebral atrophy and mild to moderate chronic small vessel ischemic change redemonstrated. Findings qu ite prominent for patient's chronologic age. Overall no significant change from prior studies however .
--- NOTE | 2018-05-20 12:56 | P.HPIM ---
History of Present Illness H&P Date: 05/20/18 Chief Complaint: Generalized weakness? H&P was mostly obtained from records and very little information from the patient. This note will serve as H&P and discharge summary. 27-year-old male with PMH of HIV encephalitis, reciting in a care home facility. Also has history of CVA, DVT, bipolar disorder. Apparently brought in via EMS for generalized weakness, was given his nighttime sleeping medications prior to arrival. Of note, patient has been previously sent to the ED on May 16 and 05/19/2018. Patient was noted to be drowsy but alert and awake in the emergency room. Patient has no complaints at this time. He denies any pain. He does report that he defecated and needs assistance from nurse. He denies any back pain. He denies any bladder or bowel incontinence, saddle anesthesia. Patient denies headaches, lower extremity edema, nausea, vomiting, fever, cough , chest pain, shortness of breath, changes in urination. No changes in appetite or weight. In the ED, CBC was unremarkable except for a platelet count of 66. BMP showed a bicarbonate of 31 and BUN of 25. CT of the brain shows no acute intracranial abnormality, mild diffuse age-related cerebral atrophy and mild to moderate chronic small vessel ischemic changes. The following labs have remained stable since his previous discharge and multiple visits to the ED. L-spine MRI in July 2017 shows mild DJD. MRI of the brain from March 2018 shows diffuse white matter disease without significant change or infarct. I was called to admit the patient for dehydration and for a psychiatric consultation. Review of Systems All systems: negative Past Medical History Past Medical History: CVA/TIA, Deep Vein Thrombosis (DVT) Additional Past Medical History / Comment(s): Pt is a poor historian. PMH obtained by speaking with [facility] staff and past medical record dated 03/26/18. Other hx: HIV diagnosed about 2009 and was noncompliant with meds, HIV encephalopathy, HIV delirium/agitation, bradycardia/Mobitz 1, chronic anemia , L side Mcgee's palsey History of Any Multi-Drug Resistant Organisms: None Reported Past Surgical History: Adenoidectomy, Appendectomy, Tonsillectomy Additional Past Surgical History / Comment(s): Myringotomy/tubes in ears as child Past Anesthesia/Blood Transfusion Reactions: No Reported Reaction Smoking Status: Former smoker - Past Family History Mother History Unknown: Yes Family Medical History: CVA/TIA, Diabetes Mellitus Additional Family Medical History / Comment(s): MS Father Additional Family Medical History / Comment(s): BIPOLAR DEPRESSION Medications and Allergies Home Medications Medication Instructions Recorded Confirmed Type Ferrous Sulfate [Iron (65 MG 325 mg PO DAILY #28 tab 12/06/17 05/20/18 Rx Elemental)] Apixaban [Eliquis] 5 mg PO BID@0800,209903/26/18 05/20/18 History Elviteg/Tracee/Emtric/Tenofo Dis 1 tab PO HS@209903/26/18 05/20/18 History [Stribild Tablet] Melatonin 5 mg PO HS@209903/26/18 05/20/18 History traZODone HCL 50 mg PO HS@209903/26/18 05/20/18 History ARIPiprazole 10 mg PO HS@209905/16/18 05/20/18 History Hydrochlorothiazide 12.5 mg PO DAILY 05/16/18 05/20/18 History Pregabalin [Lyrica] 75 mg PO DIRECTED 05/19/18 05/20/18 History Allergies Allergy/AdvReac Type Severity Reaction Status Date / Time No Known Allergies Allergy Verified 05/20/18 07:02 Physical Exam Vitals: Vital Signs Temp Pulse Resp BP Pulse Ox 05/20/18 10:00 43 L 16 112/90 05/20/18 09:30 42 L 112/90 95 05/20/18 08:30 40 L 112/90 96 05/20/18 07:22 18 05/20/18 02:56 97.6 F 56 L 18 101/76 98 Intake and Output 05/19/18 05/20/18 05/20/18 22:59 06:59 14:59 Other: Weight 103.419 kg General: [non toxic], [no distress], [appears at stated age] Derm: [warm], [dry] Head: [atraumatic], [normocephalic], [symmetric] Eyes: [EOMI], [no lid lag], [anicteric sclera] Mouth: [no lip lesion], [mucus membranes moist] Cardiovascular: [S1S2 reg], [no murmur], [positive posterior tibial pulse bilateral], Lungs: [CTA bilateral], [no rhonchi, no rales] , [no accessory muscle use] Abdominal: [soft], [ nontender to palpation], [no guarding], [no appreciable organomegaly] Ext: [no gross muscle atrophy], [no edema], [no contractures] Neuro: [ CN II-XI grossly intact], [upper extremity is 5 out of 5 bilaterally with principal systems architect strength intact], [lower extremity is 3 out of 5 bilaterally], [ sensation is intact to touch in all 4 extremities] Psych: [Alert], [oriented], [appropriate affect] Results CBC & Chem 7: 05/20/18 04:00 05/20/18 04:00 Labs: Abnormal Lab Results - Last 24 Hours (Table) 05/20/18 05/20/18 Range/Units 04:00 04:00 Plt Count 66 L (150-450) k/uL Lymphocytes # 0.5 L (1.0-4.8) k/uL Carbon Dioxide 31 H (22-30) mmol/L BUN 25 H (9-20) mg/dL Thrombosis Risk Factor Assmnt - Choose All That Apply Any of the Below Risk Factors Present?: Yes Each Factor Represents 1 point: Obesity (BMI >25) Other Risk Factors: Yes Each Risk Factor Represents 3 Points: History of DVT/PE Other congenital or acquired thrombophilia - If yes, enter type in comment: No Thrombosis Risk Factor Assessment Total Risk Factor Score: 4 Thrombosis Risk Factor Assessment Level: Moderate Risk Assessment and Plan Assessment: Assessment and Plan 1. Generalized weakness 2. HIV 3. Elevated bicarbonate 4. Elevated BUN 5. Bipolar disorder 1. Patient is at baseline at this time. He does have some lower extremity weakness, stable from previous admissions, thought to be secondary to HIV encephalitis. He does not display any signs of cord compression. CT of the brain is negative for acute findings. He has had MRI of the brain and lumbar spine in 2018 to workup lower extremity weakness, unremarkable. TSH is within normal limits. I ordered B12 and syphilis testing which can be followed up in the outpatient setting. 2. CD4 count 189 in March 2018. Will continue Stribild 1 tablet by mouth daily. Patient will need to follow PCP in the outpatient setting for continued treatment. 3. Bicarbonate of 31. Possibly secondary to hydrochlorothiazide use. 4. BUN is 25. Possibly secondary to dehydration. He has been given normal saline bolus since arriving at the hospital. 5. Continue aripiprazole, trazodone. Patient is alert and oriented 3. I believe that the patient is stable and does not require psychiatry consultation. Patient's generalized weakness has resolved according to him. He does have some lower extremity weakness but this is thought to be secondary to HIV encephalitis, has been previously worked up. He is admitted for dehydration and has received normal saline bolus since being hospitalized. He has no complaints at this time and does not require admission. Will discharge the patient back to his detention. He will need to follow-up with his PCP for the results of B12 and syphilis testing. Will instruct patient to resume all home medications.
[2018-05-20] MEDS ORDERED: PREGABALIN 75 MG CAP PO SCH ×2 (15:30→21:00)
[2018-05-20] MEDS: Elviteg/Cobi/Emtric/Tenofo Dis [Stribild Tablet] PO SCH (20:20)
[2018-05-20] MEDS: APIXABAN 5 MG TAB PO SCH (21:16)
[2018-05-20] MEDS: traZODone HCL 50 MG TAB PO SCH (21:16)
[2018-05-20] MEDS: ARIPiprazole 10 MG TAB PO SCH (21:16)
[2018-05-20] MEDS: MELATONIN 5 MG TABLET PO SCH (21:16)
--- NOTE | 2018-05-20 23:59 | P.PN ---
Subjective Progress Note Date: 05/20/18 Called by RN regarding multiple lower temperature readings (88-89 degrees C). As per the RN, multiple pleural probes and multiple locations were used all giving similar temperatures. The patient seen and evaluated at the bedside. ' The patient was laying in bed comfortably, in no acute distress. Skin was warm and normal in color. He was arousable but lethargic. S1-S2 are normal, no murmurs appreciated. Lungs sounds clear to auscultation bilaterally. Abdomen soft, nontender, no organomegaly appreciated. Patient lethargic, awakens to tactile stimuli, not answering questions. Upon review of the chart, noted that the patient has history of HIV encephalopathy and waxing and waning levels of consciousness. As per the RN, the patient was previously alert and oriented 2, though he did receive his nighttime medications including Lyrica, melatonin, and trazodone. In light of hypothermia, will evaluate for possible infection. Will obtain lactic acid, CBC , chest x-ray, and BMP. Obtain blood cultures. Heating blanket ordered. Objective - Vital Signs Vital signs: Vital Signs Temp 97.8 F 05/20/18 15:53 Pulse 51 L 05/20/18 15:53 Resp 20 05/20/18 15:53 BP 135/79 05/20/18 15:53 Pulse Ox 99 05/20/18 15:53 Intake & Output 05/20/18 05/20/18 05/21/18 06:59 18:59 06:59 Intake Total 1000 Balance 1000 Weight 103.419 kg Intake: Amount of Fluid Infused ( 1000 ml) Other: Voiding Method Diaper Diaper - Labs CBC & Chem 7: 05/20/18 04:00 05/20/18 04:00 Labs: Abnormal Lab Results - Last 24 Hours (Table) 05/20/18 05/20/18 05/20/18 Range/Units 04:00 04:00 04:00 Plt Count 66 L (150-450) k/uL Lymphocytes # 0.5 L (1.0-4.8) k/uL Carbon Dioxide 31 H (22-30) mmol/L BUN 25 H (9-20) mg/dL Vitamin B12 (200.0-944.0) pg/mL Treponema pallidum Ab Reactive H (Non-Reactive) 05/20/18 Range/Units 04:00 Plt Count (150-450) k/uL Lymphocytes # (1.0-4.8) k/uL Carbon Dioxide (22-30) mmol/L BUN (9-20) mg/dL Vitamin B12 1013.0 H (200.0-944.0) pg/mL Treponema pallidum Ab (Non-Reactive)
[2018-05-21 00:27] LABS: HCT 47.9 % (39.0-53.0); HGB 15.3 gm/dL (13.0-17.5); MCH 31.6 pg (25.0-35.0); MCHC 31.9 g/dL (31.0-37.0); MCV 98.9 fL (80.0-100.0); Macrocytosis Slight; Mean Platelet Volume 8.8; RBC 4.84 m/uL (4.30-5.90); RDW 15.5 % (11.5-15.5); WBC 3.9 k/uL (3.8-10.6)
[2018-05-21 00:32] LABS: Platelet Count 64 k/uL (150-450)
--- NOTE | 2018-05-21 00:35 | XR ---
EXAM: XR Chest, 1 View CLINICAL HISTORY: ITS.REASON XR Reason: Hypothermia TECHNIQUE: Frontal view of the chest. COMPARISON: No relevant prior studies available. FINDINGS: Lungs: Unremarkable. No consolidation. Pleural space: Unremarkable. No pneumothorax. Heart: No pneumomediastinum. Mediastinum: Unremarkable. Bones/joints: No definite fracture. IMPRESSION: No acute findings.
[2018-05-21 00:47] LABS: ALT 48 U/L (21-72); AST 48 U/L (17-59); Alkaline Phosphatase 75 U/L (38-126); Anion Gap 8 mmol/L; Blood Urea Nitrogen 21 mg/dL (9-20); Calcium 8.5 mg/dL (8.4-10.2); Carbon Dioxide 24 mmol/L (22-30); Chloride 109 mmol/L (98-107); Glucose 61 mg/dL (74-99); Sodium 141 mmol/L (137-145); Total Bilirubin 0.5 mg/dL (0.2-1.3); Total Protein 5.7 g/dL (6.3-8.2)
[2018-05-21] MEDS ORDERED: DEXTROSE 50%-WATER 50 ML SYRINGE IVP STA ×2 (00:51→07:22)
[2018-05-21] MEDS: DEXTROSE 5%-0.9% NACL 1,000 ML IV SCH ×2 (00:59→10:26)
[2018-05-21 01:18] LABS: Glucose,Whole Blood 120 mg/dL (75-99)
[2018-05-21] MEDS: APIXABAN 5 MG TAB PO SCH ×2 (07:32→23:13)
[2018-05-21 07:39] LABS: Glucose,Whole Blood 65 mg/dL (75-99)
[2018-05-21 08:17] LABS: Glucose,Whole Blood 146 mg/dL (75-99)
[2018-05-21 08:21] LABS: Calcium 8.8 mg/dL (8.4-10.2); Potassium 3.9 mmol/L (3.5-5.1)
--- NOTE | 2018-05-21 08:44 | P.PN ---
Subjective Progress Note Date: 05/21/18 Principal diagnosis: Lethargy Patient was seen and examined. No acute events overnight. Report from nurse taking care of the patient, she has previously taken care of the patient on previous admission. Patient is usually more active, able to ambulate with the help of a walker. Also more communicative in the past. Patient has no complaints this morning but appears more lethargic than yesterday. He has a wet cough and diarrhea. Reports from RN last night regarding hypothermia. CBC, CXR and Lactic acid ordered and unremarkable. BMP was stable. Objective - Vital Signs Vital signs: Vital Signs Temp 99.0 F 05/21/18 07:25 Pulse 101 H 05/21/18 07:25 Resp 18 05/21/18 07:25 BP 114/75 05/21/18 07:25 Pulse Ox 93 L 05/21/18 07:30 Intake & Output 05/20/18 05/21/18 05/21/18 18:59 06:59 18:59 Intake Total 1000 50 Balance 1000 50 Intake: Amount of Fluid Infused ( 1000 ml) Oral 50 Other: Voiding Method Diaper Diaper Diaper # Voids 3 - Exam General: [non toxic], [lethargic], [appears at stated age] Derm: [warm], [dry] Head: [atraumatic], [normocephalic], [symmetric] Eyes: [EOMI], [no lid lag], [anicteric sclera] Mouth: [no lip lesion], [mucus membranes moist] Cardiovascular: [S1S2 reg], [tachycardia], [positive DP bilateral], Lungs: [CTA bilateral], [no rhonchi, no rales] , [no accessory muscle use] Abdominal: [soft], [ nontender to palpation], [no guarding], [no appreciable organomegaly] Ext: [no gross muscle atrophy], [no edema], [no contractures] Neuro: [upper extremity is 5 out of 5 bilaterally with manager banquet strength intact], [ lower extremity is 2-33 out of 5 bilaterally], [sensation is intact to touch in all 4 extremities] Psych: [Alert], [oriented], [appropriate affect] - Labs CBC & Chem 7: 05/21/18 00:17 05/21/18 07:15 Labs: Abnormal Lab Results - Last 24 Hours (Table) 05/20/18 05/20/18 05/21/18 Range/Units 04:00 04:00 00:17 Plt Count 64 L (150-450) k/uL Chloride (98-107) mmol/L BUN (9-20) mg/dL Creatinine (0.66-1.25) mg/dL Glucose (74-99) mg/dL POC Glucose (mg/dL) (75-99) mg/dL Plasma Lactic Acid Ignacio (0.7-2.0) mmol/L Total Protein (6.3-8.2) g/dL Albumin (3.5-5.0) g/dL Vitamin B12 1013.0 H (200.0-944.0) pg/mL Treponema pallidum Ab Reactive H (Non-Reactive) 05/21/18 05/21/18 05/21/18 Range/Units 00:17 00:17 01:14 Plt Count (150-450) k/uL Chloride 109 H (98-107) mmol/L BUN 21 H (9-20) mg/dL Creatinine (0.66-1.25) mg/dL Glucose 61 L (74-99) mg/dL POC Glucose (mg/dL) 120 H (75-99) mg/dL Plasma Lactic Acid Ignacio <0.5 L (0.7-2.0) mmol/L Total Protein 5.7 L (6.3-8.2) g/dL Albumin 3.0 L (3.5-5.0) g/dL Vitamin B12 (200.0-944.0) pg/mL Treponema pallidum Ab (Non-Reactive) 05/21/18 05/21/18 05/21/18 Range/Units 07:15 07:18 07:51 Plt Count (150-450) k/uL Chloride 110 H (98-107) mmol/L BUN 22 H (9-20) mg/dL Creatinine 1.31 H (0.66-1.25) mg/dL Glucose 65 L (74-99) mg/dL POC Glucose (mg/dL) 65 L 146 H (75-99) mg/dL Plasma Lactic Acid Ignacio (0.7-2.0) mmol/L Total Protein (6.3-8.2) g/dL Albumin (3.5-5.0) g/dL Vitamin B12 (200.0-944.0) pg/mL Treponema pallidum Ab (Non-Reactive) Assessment and Plan Assessment: Assessment and Plan 1. Generalized weakness 2. Acute encephalopathy with hypothermia 3. Hypoglycemia 4. HIV 5. Elevated BUN 6. Bipolar disorder 1. Patient is at baseline at this time. He does have some lower extremity weakness, progressively getting worse, thought to be secondary to HIV encephalitis. He does not display any signs of cord compression. CT of the brain is negative for acute findings. He has had MRI of the brain and lumbar spine in 2018 to workup lower extremity weakness, unremarkable for cord compression. TSH is within normal limits. Will follow B12 and syphilis testing. Follow PT and OT consult. 2. Reports of waxing and waning in the past due to HIV encephalopathy. Concerns for infectious cause last night due to hypothermia - CBC showed on leukocytosis, CXR was clear, Lactic acid negative and BMP was stable. CT brain this admission is stable as well. Ordered repeat CXR 2 view, CBC, Lactic acid this morning. Follow blood cultures. Follow ID consult. 3. Likely due to poor appetite. Continue D5 NS at 100 cc/h. 4. CD4 count 189 in March 2018. Will continue Stribild 1 tablet by mouth daily. Will follow ID consult 5. BUN is 25 to 21. Possibly secondary to dehydration. Continue D5 at 100 cc/ h. 6. Continue aripiprazole, trazodone. Patient is alert and oriented 3. I believe that the patient is stable and does not require psychiatry consultation. According to nursing, there is a decline in his physical ability and increased lethargy. Ordered CBC, Lactic acid and CXR to rule out infectious cause. Will follow ID consult. PT and OT consulted for weakness. Denied from previous half-way due to increased work in taking care of him. Will follow for placement.
[2018-05-21] MEDS ORDERED: HYDROCHLOROTHIAZIDE 12.5 MG CAP PO SCH (09:00)
[2018-05-21] MEDS ORDERED: PREGABALIN 75 MG CAP PO SCH ×2 (09:00→21:00)
[2018-05-21 09:28] LABS: Basophils % (A) 0 %; Eosinophils % (A) 1 %; HGB 15.6 gm/dL (13.0-17.5); Lymphocytes # (A) 0.5 k/uL (1.0-4.8); Lymphocytes % (A) 8 %; MCH 31.1 pg (25.0-35.0); MCHC 31.8 g/dL (31.0-37.0); MCV 97.8 fL (80.0-100.0); Macrocytosis Slight; Mean Platelet Volume 9.8; Monocytes # (A) 0.2 k/uL (0-1.0); Monocytes % (A) 4 %; Neutrophils # (A) 5.3 k/uL (1.3-7.7); Neutrophils % (A) 87 %; RBC 5.01 m/uL (4.30-5.90); RDW 15.7 % (11.5-15.5); WBC 6.1 k/uL (3.8-10.6)
[2018-05-21 09:29] LABS: Platelet Count 84 k/uL (150-450)
[2018-05-21 10:08] LABS: Glucose,Whole Blood 81 mg/dL (75-99)
--- NOTE | 2018-05-21 10:28 | XR ---
EXAMINATION TYPE: XR chest 2V DATE OF EXAM: 05/21/2018 COMPARISON: 05/21/2018 earlier today HISTORY: 27-year-old male with cough TECHNIQUE: Frontal and lateral views FINDINGS: Heart size is accentuated likely due to AP portable technique. Mild interstitial prominence could be from magnification due to patient large body habitus. There is patchy posterior basilar opacity seen on the lateral view. No sizable effusion. IMPRESSION: Some patchy posterior basilar atelectasis or developing infiltrate on the lateral view.
[2018-05-21 11:39] LABS: Glucose,Whole Blood 89 mg/dL (75-99)
[2018-05-21] MEDS ORDERED: FERROUS SULFATE 325 MG TAB PO SCH (12:00)
[2018-05-21] MEDS ORDERED: VANCOMYCIN IV PER PHARMACY 1 EACH MISC MISCELLANE PRN (12:28)
[2018-05-21] MEDS ORDERED: VANCOMYCIN 1,500 MG in SODIUM CHLORIDE 0.9% 250 ML IVPB SCH ×2 (12:30→22:00)
[2018-05-21] MEDS ORDERED: VANCOMYCIN 1,750 MG in SODIUM CHLORIDE 0.9% 500 ML 500 ML IVPB ONE (12:45)
[2018-05-21] MEDS ORDERED: DEXTROSE 50%-WATER 50 ML SYRINGE IVP ONE (14:11)
[2018-05-21 14:22] LABS: Glucose,Whole Blood 73 mg/dL (75-99)
[2018-05-21 14:44] LABS: ABG Base Excess 1.2 mmol/L; ABG HCO3 29 mmol/L (21-25); ABG PCO2 58 mmHg (35-45); ABG PH 7.31 (7.35-7.45); ABG PO2 86 mmHg (83-108); ABG TCO2 21 mmol/L (19-24)
--- NOTE | 2018-05-21 14:56 | XR ---
EXAMINATION TYPE: XR chest 1V DATE OF EXAM: 05/21/2018 COMPARISON: 05/21/2018 HISTORY: 27-year-old male hypoxia, possible aspiration TECHNIQUE: Single frontal view of the chest is obtained. FINDINGS: Patient is rotated to the left and oblique. This alters normal cardiac mediastinal contours. Mild int erstitial prominence is similar. No progressive consolidation or sizable effusion seen. IMPRESSION: Rotated and obliqued exam. Mild interstitial prominence is similar. No progressive consolidation or p leural effusion. If concern for aspiration, follow-up can be performed.
[2018-05-21 14:58] LABS: Glucose,Whole Blood 119 mg/dL (75-99)
[2018-05-21] MEDS ORDERED: AMPICILLIN-SULBACTAM 1.5 GM in SODIUM CHLORIDE 0.9% 50 ML IVPB SCH (16:00)
[2018-05-21] MEDS ORDERED: CEFEPIME 1 GM in SODIUM CHLORIDE 0.9% 50 ML IVPB SCH (16:00)
[2018-05-21 16:11] LABS: Glucose,Whole Blood 83 mg/dL (75-99)
[2018-05-21 16:18] LABS: ABG Base Excess 4.2 mmol/L; ABG HCO3 29 mmol/L (21-25); ABG Oxygen Saturation 99.7 % (94-97); ABG PCO2 50 mmHg (35-45); ABG PH 7.38 (7.35-7.45); ABG PO2 213 mmHg (83-108); ABG TCO2 31 mmol/L (19-24)
--- NOTE | 2018-05-21 16:51 | P.CNPUL ---
History of Present Illness Consult date: 05/21/18 Requesting physician: Nay Morillo Reason for consult: hypoxemia, other (hypoxic and hypercapnic respiratory failure) Chief complaint: weakness History of present illness: this is a 27-year-old -[place] male with history of HIV encephalitis, patient is residing in a shelter facility. He had history of CVA, deep vein thrombosis, bipolar disorder. Patient was brought into the hospital yesterday mostly with symptoms of generalized weakness patient has been complaining of recurrent episodes of drowsiness.on admission, the patient was noted to have multiple abnormalities including low platelets,66,000.relatively normal electrolytes, low blood sugar of 74, and at times has been as low as 61.patient was also noted to have positive treponema pallidum antibody but nonreactive RPR.patient is being followed by infectious disease. I was called to see the patient today on the medical floor because he was getting more lethargic, and he was noted to have relative hypoxemia and hypercapnia.his blood sugar was noted to be low in the 70s, and he was given an amp of D50. ABG reflected a pO2 of 80 on 100% FiO2 pCO2 was 58, and pH was low indicative of hypoventilation and hypercapnic respiratory failure. Patient was responding mostly to deep painful stimuli, he would wake up, and then goes back to sleep. After evaluating the patient, I recommended transferring the patient to the ICU. Placed on BiPAP, repeat ABG showed a pO2 of 213 pCO2 of 50 and pH of 7.38. Dramatic improvement noted in the ABG, however his mentation remained basically the same. Patient is quite sleepy, lethargic, and opens eyes briefly responds briefly to deep painful stimuli then goes back to sleep again.able to protect his airways, hence did not feel the need to intubate the patient.apparently the patient had recent CT of the brain showing no intracranial abnormality it did show mild diffuse cerebral atrophy. Recent MRI of the spine was positive for mild degenerative joint disease. MRI of the brain in March of 2018 was also unremarkable. At any rate the patient was admitted initially with dehydration and for psychiatric consultation although based on the presentation I feel the patient would actually need more of a neurological consultation then psychiatric consultation.patient is maintained on multiple meds which were reviewed including eliquis, Abilify,Lyrica,trazodone ,and he was placed on Zosyn and vancomycin empirically for presumptive sepsis.his lactic acid on presentation was 1.1. Review of Systems ROS unobtainable: due to mental status Past Medical History Past Medical History: CVA/TIA, Deep Vein Thrombosis (DVT) Additional Past Medical History / Comment(s): Pt is a poor historian. PMH obtained by speaking with [facility] staff and past medical record dated 03/26/18. Other hx: HIV diagnosed about 2009 and was noncompliant with meds, HIV encephalopathy, HIV delirium/agitation, bradycardia/Mobitz 1, chronic anemia , L side Mcgee's palsey History of Any Multi-Drug Resistant Organisms: None Reported Past Surgical History: Adenoidectomy, Appendectomy, Tonsillectomy Additional Past Surgical History / Comment(s): Myringotomy/tubes in ears as child Past Anesthesia/Blood Transfusion Reactions: No Reported Reaction Smoking Status: Former smoker - Past Family History Mother History Unknown: Yes Family Medical History: CVA/TIA, Diabetes Mellitus Additional Family Medical History / Comment(s): MS Father Additional Family Medical History / Comment(s): BIPOLAR DEPRESSION Medications and Allergies Home Medications Medication Instructions Recorded Confirmed Type Ferrous Sulfate [Iron (65 MG 325 mg PO DAILY #28 tab 12/06/17 05/20/18 Rx Elemental)] Apixaban [Eliquis] 5 mg PO BID@0800,209903/26/18 05/20/18 History Elviteg/Tracee/Emtric/Tenofo Dis 1 tab PO HS@209903/26/18 05/20/18 History [Stribild Tablet] Melatonin 5 mg PO HS@209903/26/18 05/20/18 History traZODone HCL 50 mg PO HS@209903/26/18 05/20/18 History ARIPiprazole 10 mg PO HS@2100 05/16/18 05/20/18 History Hydrochlorothiazide 12.5 mg PO DAILY 05/16/18 05/20/18 History Pregabalin [Lyrica] 75 mg PO DIRECTED 05/19/18 05/20/18 History Allergies Allergy/AdvReac Type Severity Reaction Status Date / Time No Known Allergies Allergy Verified 05/20/18 07:02 Physical Exam Vitals: Vital Signs Temp Pulse Resp BP BP Pulse Ox 05/21/18 07:30 93 L 05/21/18 07:25 99.0 F 101 H 18 114/75 90 L 05/21/18 03:30 97.7 F 05/21/18 02:10 96.9 F L 05/21/18 01:05 96.2 F L 05/20/18 22:30 86.3 F L 97 20 111/71 97 Intake and Output 05/21/18 05/21/18 05/21/18 06:59 14:59 22:59 Intake Total 50 Balance 50 Intake: Oral 50 Other: Voiding Method Diaper Diaper # Voids 3 1 Physical Exam: Revealed a 27-year-old -[place] male, on BiPAP, in no distress, however extremely lethargic and opens eyes on deep painful stimuli only. Head: Atraumatic, normocephalic. HEENT:[Neck is supple.] [No neck masses.] [No thyromegaly.] [No JVD.]moist mucous membranes. PERRLA, EOMI, no icterus. Chest: [diminished breath sounds at the bases no crackles or rhonchi or wheezes. ] Cardiac Exam: [Normal S1 and S2, no S3 gallop, no murmur.] Abdomen: [Soft, nontender, no megaly, no rebound, no guarding, normal bowel sounds.] Extremities: [No clubbing, no edema, no cyanosis.] Neurological Exam: patient is lethargic, opens eyes to deep painful stimuli, able to protect his airways, positive gag reflex. Generally weak diminished reflexes bilaterally. Psychiatric: Cannot be assessed. Skin: No rashes. Results - Laboratory Findings CBC and BMP: 05/21/18 08:55 05/21/18 07:15 ABG ABG pH 7.38 (7.35-7.45) 05/21/18 16:15 ABG pCO2 50 mmHg (35-45) H 05/21/18 16:15 ABG pO2 213 mmHg (83-108) H 05/21/18 16:15 ABG O2 Saturation 99.7 % (94-97) H 05/21/18 16:15 Abnormal lab findings: Abnormal Labs 05/20/18 05/20/18 05/20/18 04:00 04:00 04:00 RDW Plt Count 66 L Lymphocytes # 0.5 L ABG pH ABG pCO2 ABG pO2 ABG HCO3 ABG Total CO2 ABG O2 Saturation Chloride Carbon Dioxide 31 H BUN 25 H Creatinine Glucose POC Glucose (mg/dL) Plasma Lactic Acid Ignacio Total Protein Albumin Vitamin B12 Treponema pallidum Ab Reactive H 05/20/18 05/21/18 05/21/18 04:00 00:17 00:17 RDW Plt Count 64 L Lymphocytes # ABG pH ABG pCO2 ABG pO2 ABG HCO3 ABG Total CO2 ABG O2 Saturation Chloride 109 H Carbon Dioxide BUN 21 H Creatinine Glucose 61 L POC Glucose (mg/dL) Plasma Lactic Acid Ignacio Total Protein 5.7 L Albumin 3.0 L Vitamin B12 1013.0 H Treponema pallidum Ab 05/21/18 05/21/18 05/21/18 00:17 01:14 07:15 RDW Plt Count Lymphocytes # ABG pH ABG pCO2 ABG pO2 ABG HCO3 ABG Total CO2 ABG O2 Saturation Chloride 110 H Carbon Dioxide BUN 22 H Creatinine 1.31 H Glucose 65 L POC Glucose (mg/dL) 120 H Plasma Lactic Acid Ignacio <0.5 L Total Protein Albumin Vitamin B12 Treponema pallidum Ab 05/21/18 05/21/18 05/21/18 07:18 07:51 08:55 RDW 15.7 H Plt Count 84 L Lymphocytes # 0.5 L ABG pH ABG pCO2 ABG pO2 ABG HCO3 ABG Total CO2 ABG O2 Saturation Chloride Carbon Dioxide BUN Creatinine Glucose POC Glucose (mg/dL) 65 L 146 H Plasma Lactic Acid Ignacio Total Protein Albumin Vitamin B12 Treponema pallidum Ab 05/21/18 05/21/18 05/21/18 14:01 14:27 14:46 RDW Plt Count Lymphocytes # ABG pH 7.31 L ABG pCO2 58 H ABG pO2 ABG HCO3 29 H ABG Total CO2 ABG O2 Saturation Chloride Carbon Dioxide BUN Creatinine Glucose POC Glucose (mg/dL) 73 L 119 H Plasma Lactic Acid Ignacio Total Protein Albumin Vitamin B12 Treponema pallidum Ab 05/21/18 16:15 RDW Plt Count Lymphocytes # ABG pH ABG pCO2 50 H ABG pO2 213 H ABG HCO3 29 H ABG Total CO2 31 H ABG O2 Saturation 99.7 H Chloride Carbon Dioxide BUN Creatinine Glucose POC Glucose (mg/dL) Plasma Lactic Acid Ignacio Total Protein Albumin Vitamin B12 Treponema pallidum Ab - Diagnostic Findings Chest x-ray: image reviewed (minimal basilar atelectasis is noted.) Assessment and Plan Assessment: impression: 1 HIV encephalitis with profound mental status change.and profound weakness 2 positive treponema pallidum antibody, this may be related to previous history of syphilis infection, however the possibility of tertiary syphilis would have to be raised, and I will leave it up to the infectious disease specialist to assess the significance of this positive antibody test. and decide whether a lumbar puncture is necessary at this point in time. 3 acute hypoxic and hypercapnic respiratory failure responding to BiPAP, mostly related to hypoventilation and mental status change. 4 low CD4 count documented on previous admission. 5 bipolar disorder maintained on multiple meds including Abilify, and trazodone. 6 History of deep vein thrombosis, maintained on anticoagulation therapy 7 intermittent episodes of hypoglycemia could also be contributing to his intermittent episodes of encephalopathy/metabolic encephalopathy. Recommendation: Continue present treatment plan, however considering the patient 's overall mental status I believe the patient is better off being transferred to a tertiary care facility were in neurology services are available. In the meantime I have reviewed the initial ABG and a repeat ABG when the patient was placed on BiPAP, we will continue on BiPAP, however if the patient's condition deteriorates and he cannot protect his airways, then he would have to be intubated and placed on mechanical ventilation.We will let the admitting physician no that at this point it would be better to consider transferring the patient. Time with Patient: Greater than 30
[2018-05-21] MEDS: PIPERACILLIN-TAZOBACTAM 3.375 GM in SODIUM CHLORIDE 0.9% 100 ML IVPB SCH (17:17)
--- NOTE | 2018-05-21 18:49 | CONS ---
CONSULTATION DATE OF SERVICE: 05/21/2018. REASON FOR CONSULTATION: Pneumonia and HIV patient. HISTORY OF PRESENT ILLNESS: The patient is a 27-year-old male with a past medical history significant for HIV diagnosed back in 2008 and the patient initially did not seek any treatment. The patient apparently is currently at the local mental [place] [facility] and has been under care of Dr. Rg, taking . The patient was brought into the ER at [facility] 3 times in the last few weeks. His main symptom has been generalized weakness and no energy. No clear history of any fever or chills. On arrival to the hospital, the patient apparently was lethargic when he initially presented to the hospital and that was attributed to him taking his antipsychotic as well as his sleeping pills. The patient did have CT of the brain completed, shows no acute intracranial hemorrhage or midline shift. Diffuse age-related cerebral atrophy. The patient who was afebrile noticed to be significantly hypothermic last night. Temperature recorded was 86.3 with concern for possible sepsis was infused including lactic acid which came back normal. The patient white count has been normal. Creatinine was slightly elevated 1.31. The patient did have a chest x-ray completed last night, which shows no acute findings. Chest x-ray completed this morning is now showing developing an infiltrate posterior basal atelectasis with concern for possible aspiration pneumonitis. The patient was started on Unasyn, cefepime and vancomycin. Infectious disease was consulted for further recommendation of antibiotic therapy. At the time of my evaluation, the patient was seen on rounds, around noon to 12:30 the patient has been lethargic. However, he did open eyes to his name. When asked specifically for headache, he shook his head in negative. However, the patient was lethargic and did not provide any further information, so most of the information has been obtained from prior review of the chart and talking to nursing staff. REVIEW OF SYSTEMS: Could not be reliably obtained. The positive points have been mentioned in HPI. PAST MEDICAL HISTORY: CVA, TIA, DVT, HIV, encephalopathy, delirium, and Mcgee's palsy. PAST SURGICAL HISTORY: Adenoidectomy, appendectomy, tonsillectomy, as a child. SOCIAL HISTORY: Remote history of smoking. Currently an adult foster care resident. FAMILY HISTORY: Mother with history of CVA, TIA, diabetes mellitus. Father with bipolar depression. ALLERGIES: No known drug allergies. MEDICATION: Medications include the patient is currently on Eliquis, Abilify, iron sulfate, hydrochlorothiazide, Melatonin, Narcan, Lyrica, Desyrel, vancomycin, Unasyn and Cefepime. PHYSICAL EXAMINATION: Blood pressure is 140/75 with a pulse of 101, temperature 99, he is 90% on room air with 90% 2 L nasal cannula. General description is a middle-aged male lying in bed in no distress. No tachypnea or accessory muscles of respiration use. HEENT: Shows no pallor or scleral icterus. Oral mucosa membranes dry. Neck: Trachea central. No thyromegaly. Lungs unlabored breathing, decreased breath sounds in the bases. No wheeze. Heart S1, S2. Regular rate and rhythm. ABDOMEN: Soft, no tenderness. No guarding or rigidity. Extremities: No edema of the feet. Skin examination: No rash or mass palpable. Neurological: Patient is lethargic, sleepy. No neck rigidity was noticed. LABS: Hemoglobin 15.6, white count 6.1, BUN of 22, creatinine 1.31. Lactic acid was 1.1. Chest x-ray with developing infiltrate. DIAGNOSTIC IMPRESSION AND PLAN: 1. Patient with an episode of hypothermia last night. This morning, the patient noticed to be in respiratory distress. After I left the patient's room, I was informed that the patient seemed to be aspirating and has been called in. He was noticed to be hypoxic with concern likely for an aspiration pneumonia to be top of the list. In view of his significant cephalopathy, underlying MESH MAN infection needs to be ruled out too. The patient is currently on Eliquis that will prevent us from doing a lumbar puncture at this point. 2. The patient with history of HIV, currently stable as agent. PLAN: 1. Discontinue the Unasyn and cefepime. 2. We will start the patient on Zosyn 3.7 q8 and continue vancomycin. 3. Obtain sputum for Gram stain culture and sensitivity. 4. We will follow up on clinical condition to further adjust medication if needed. Thank you for this consultation. We will follow this patient along with you. MMODL / IJN: [id number] /
--- NOTE | 2018-05-21 19:13 | P.PN ---
Progress Note - Text Progress Note Date: 05/21/18 Upon recommendation from Critical care service regarding neurological evaluation and transfer, I spoke with [facility] transfer team. They recommended that I speak with Dr. Ramos at [phone]. I was able to get a hold of Dr. Ramos discussed the patient which will be in ICU to ICU transfer, we agreed that better care with be provided if patient is transferred in the morning when the neurology team is available. We'll continue providing supportive care in the ICU at our facility for tonight for the transfer to be arranged in the morning. production specialist Patient guardian Alize Lee was notified regarding the transfer and is agreeable. Transfer team at [facility] could be reached at [phone] asked for Ryann / Charisse. Admitted charge at [facility] Rosalio Zapien assisted with the transfer she [place] reached [place] [phone] Patient nurse Kay in the ICU was notified about [facility] accepting the patient admitting physician would be Dr. Walden and they will be IC to ICU transfer in the morning at 5 am. I went and evaluated the patient again, patient is currently stable not requiring any pressors, currently on BiPAP oxygenating well, vital signs stable , labs showed low platelet , but no other major abnormalities. patient does not respond to verbal stimulation , he would twitch his eyes and moans only. Patient is withdrawing with pain stimulation If we felt that the patient would benefit from immediate transfer , we can call Dr Ramos, otherwise , will continue aggressive medical management at this time. CT scan of the head reviewed which showed no acute abnormalities.
[2018-05-21 19:19] LABS: Glucose,Whole Blood 67 mg/dL (75-99)
[2018-05-21 19:19] LABS: ABG Base Excess 2.9 mmol/L; ABG HCO3 29 mmol/L (21-25); ABG Oxygen Saturation 94.8 % (94-97); ABG PCO2 60 mmHg (35-45); ABG PO2 81 mmHg (83-108); ABG TCO2 31 mmol/L (19-24)
[2018-05-21 19:38] LABS: Glucose,Whole Blood 158 mg/dL (75-99)
[2018-05-21] MEDS ORDERED: DEXTROSE 10% IN WATER 500 ML IV SCH (20:00)
[2018-05-21] MEDS: PROPOFOL 1,000 MG in EMPTY BAG 1 BAG IV SCH (20:00)
--- NOTE | 2018-05-21 20:18 | XR ---
EXAMINATION TYPE: XR chest 1V portable DATE OF EXAM: 05/21/2018 COMPARISON: Today HISTORY: Hypoxemia TECHNIQUE: Single frontal view of the chest is obtained. FINDINGS: Endotracheal tube is 3.5 cm from the gala. There is mild infiltrate and atelectasis at t he lung bases. There is no heart failure. There is nasogastric tube with the tip over the gastric fun dus. There are chest leads. Trachea is midline. IMPRESSION: There is new bilateral lower lobe infiltrate and atelectasis compared to exam earlier to day. No heart failure seen.
[2018-05-21 20:37] LABS: ABG Base Excess 0.7 mmol/L; ABG HCO3 27 mmol/L (21-25); ABG Oxygen Saturation 99.4 % (94-97); ABG PCO2 56 mmHg (35-45); ABG PO2 181 mmHg (83-108); ABG TCO2 29 mmol/L (19-24)
[2018-05-21] MEDS: IPRATROPIUM-ALBUTEROL 3 ML NEB INHALATION SCH ×2 (20:57→23:53)
[2018-05-21] MEDS ORDERED: CHLORHEXIDINE GLUCONATE 15 ML CUP MUCOUS MEM SCH (21:00)
[2018-05-21] MEDS ORDERED: VANCOMYCIN 1,750 MG in SODIUM CHLORIDE 0.9% 500 ML 500 ML IVPB SCH (22:00)
[2018-05-21 22:39] LABS: Glucose,Whole Blood 89 mg/dL (75-99)
[2018-05-21] MEDS: MELATONIN 5 MG TABLET PO SCH (22:52)
[2018-05-21] MEDS: traZODone HCL 50 MG TAB PO SCH (22:53)
[2018-05-21] MEDS: Elviteg/Cobi/Emtric/Tenofo Dis [Stribild Tablet] PO SCH (23:03)
[2018-05-21] MEDS: ARIPiprazole 10 MG TAB PO SCH (23:13)
[2018-05-21 23:35] VITALS: RESP 16
[2018-05-22 00:17] LABS: Glucose,Whole Blood 98 mg/dL (75-99)
[2018-05-22] MEDS: PROPOFOL 1,000 MG in EMPTY BAG 1 BAG IV SCH ×2 (00:33→05:41)
[2018-05-22] MEDS: PIPERACILLIN-TAZOBACTAM 3.375 GM in SODIUM CHLORIDE 0.9% 100 ML IVPB SCH (01:19)
[2018-05-22 02:29] LABS: Glucose,Whole Blood 81 mg/dL (75-99)
[2018-05-22] MEDS: IPRATROPIUM-ALBUTEROL 3 ML NEB INHALATION SCH (03:20)
[2018-05-22 05:02] VITALS: TEMP 97.4
[2018-05-22 05:17] LABS: Glucose,Whole Blood 96 mg/dL (75-99)
[2018-05-22 05:19] LABS: HCT 45.6 % (39.0-53.0); HGB 14.7 gm/dL (13.0-17.5); MCH 31.8 pg (25.0-35.0); MCHC 32.2 g/dL (31.0-37.0); MCV 98.7 fL (80.0-100.0); Macrocytosis Slight; Mean Platelet Volume 8.7; RBC 4.62 m/uL (4.30-5.90); RDW 15.7 % (11.5-15.5); WBC 12.7 k/uL (3.8-10.6)
[2018-05-22 05:27] LABS: Platelet Count 50 k/uL (150-450)
[2018-05-22 05:33] LABS: Albumin 2.7 g/dL (3.5-5.0); Calcium 8.5 mg/dL (8.4-10.2); Magnesium 1.6 mg/dL (1.6-2.3); Phosphorus 2.4 mg/dL (2.5-4.5); Potassium 3.9 mmol/L (3.5-5.1); Total Bilirubin 0.6 mg/dL (0.2-1.3); Total Protein 5.9 g/dL (6.3-8.2)
[2018-05-22] MEDS ORDERED: MAGNESIUM SULFATE-D5W PMX 1 GM in DEXTROSE/WATER 1 100ML.BAG IVPB SCH (05:45)
[2018-05-22] MEDS ORDERED: POTASSIUM PHOSPHATE 10 MMOL in SODIUM CHLORIDE 0.9% 250 ML IV ONE (06:00)
[2018-05-22 06:30] LABS: Band Neutrophils % 28 %; Lymphocytes # (M) 0.64 k/uL (1.0-4.8); Monocytes # (M) 0.13 k/uL (0-1.0); Neutrophils % (M) 66 %; Nucleated Red Blood Cells 0 /100 WBC (0-0); Total Cells Counted 100
[2018-05-22 07:18] VITALS: BP 90/47; PULSE 61
--- NOTE | 2018-05-22 08:09 | XR ---
EXAMINATION TYPE: XR chest 1V portable DATE OF EXAM: 05/22/2018 COMPARISON: 05/21/2018 HISTORY: Shortness of breath TECHNIQUE: Single frontal view of the chest is obtained. FINDINGS: There are similar positioning of the endotracheal and enteric tubes with its fenestrated p ortion of the enteric tube just be on the gastroesophageal junction. There is worsening of bibasilar opacities in comparison to the prior 05/21/2018. No new pleural effusion or pneumothorax is seen. Card ia mediastinal silhouette is again enlarged. IMPRESSION: Worsening bibasilar airspace disease in comparison to the prior and may represent depend ent pulmonary edema or multifocal pneumonia.
[2018-05-28] MEDS ORDERED: PREGABALIN 75 MG CAP PO SCH (09:00)
== END 2018-05-22 07:26 | disposition short-term general hospital (02) | DRG 177 ==
LOC: EC 02:49 → 3NMEDONC 07:29 → 4MS4W 11:00 → UNDODISOB 12:47 → 4MS4W 14:49 → OBSVTOIN 05-21 14:24 → 2SICU 05-21 14:34
PROVIDERS: ADMIT Family Medicine; ATTEND Family Medicine
PROC: 5A09357 Assistance with Respiratory Ventilation, Less than 24 Consecutive Hours, Continuous Positive Airway Pressure (ICD-10-PCS; principal; 2018-05-21)
DX: J69.0 Pneumonitis due to inhalation of food and vomit (principal); J96.01 Acute respiratory failure with hypoxia; J96.02 Acute respiratory failure with hypercapnia; G93.41 Metabolic encephalopathy; B20 Human immunodeficiency virus [HIV] disease; J98.11 Atelectasis; G32.89 Other specified degenerative disorders of nervous system in diseases classified elsewhere; D69.6 Thrombocytopenia, unspecified; E16.2 Hypoglycemia, unspecified; E86.0 Dehydration; F17.210 Nicotine dependence, cigarettes, uncomplicated; F31.9 Bipolar disorder, unspecified; M19.90 Unspecified osteoarthritis, unspecified site; Z79.01 Long term (current) use of anticoagulants; Z79.899 Other long term (current) drug therapy; Z81.8 Family history of other mental and behavioral disorders; Z83.3 Family history of diabetes mellitus; Z86.718 Personal history of other venous thrombosis and embolism; Z86.73 Personal history of transient ischemic attack (TIA), and cerebral infarction without residual deficits; T68.XXXA Hypothermia, initial encounter; R53.1 Weakness
CPT/HCPCS: 36415; 36600; 70450; 71045; 71046; 80048; 80053; 82607; 82805; 83605; 83735; 84100; 84443; 85025; 85027; 86592; 86780; 87040; 87070; 87205; 87324; 94002; 94003; 94640; 94660; 96360; 96361; 99285